=== PATIENT | male | born 1945 | race Caucasian/White ===

== ENCOUNTER 2019-06-09 17:30 | Emergency (ER) | payer MEDICARE, OTHER ==
--- NOTE | 2019-06-09 17:42 | ERPHSYRPT ---
- History of Present Illness Time Seen by Provider: 06/09/19 17:37 Source: patient Exam Limitations: no limitations Physician History: at work the radiator fluid fell on his left hand and left distal forearm and also right face while he was trying to remove the radiator. Has a burn on the left palm left forearm distal area on the volar side and also right side of the face. Timing/Duration: today Quality: burning, painful Severity: moderate Location: other ( burn on the left palm left forearm distal area on the volar side and also right side of the face.) Possible Causes: other (radiator liquid) Associated Symptoms: blisters, change in skin texture, No difficulty breathing, No edema, No fever, No flushing, No headache, No hives, No jaundice, No malaise , No nasal congestion, No numbness, No pallor, No paresthesia, No petechiae, No rash, No sore throat, No swelling/mass/lumps, No tingling Allergies/Adverse Reactions: No Known Drug Allergies Allergy (Verified 06/09/19 17:43) Home Medications: Lisinopril [Zestril] 20 mg PO DAILY 12/11/15 [History] Atorvastatin Calcium [Lipitor] 80 mg DAILY 06/09/19 [History] Ezetimibe 10 mg DAILY 06/09/19 [History] Metformin HCl 500 mg [Glucophage 500 MG] 500 mg BID 06/09/19 [History] Hx Tetanus, Diphtheria Vaccination/Date Given: Yes Hx Influenza Vaccination/Date Given: Yes (2012) Hx Pneumococcal Vaccination/Date Given: No - Review of Systems Constitutional: No Fever, No Chills Eyes: No Symptoms Ears, Nose, & Throat: No Symptoms Respiratory: No Cough, No Dyspnea Cardiac: No Chest Pain, No Edema, No Syncope Abdominal/Gastrointestinal: No Abdominal Pain, No Nausea, No Vomiting, No Diarrhea Genitourinary Symptoms: No Dysuria Musculoskeletal: No Back Pain, No Neck Pain Skin: Other (1st degree burn on the left palm left forearm distal area on the volar side and also right side of the face.), No Rash Neurological: No Dizziness, No Focal Weakness, No Sensory Changes Psychological: No Symptoms Endocrine: No Symptoms All Other Systems: Reviewed and Negative - Past Medical History Pertinent Past Medical History: Yes Neurological History: No Pertinent History ENT History: No Pertinent History Cardiac History: Hypertension Respiratory History: Asthma Endocrine Medical History: No Pertinent History Musculoskeletal History: Osteoarthritis GI Medical History: No Pertinent History History: No Pertinent History Psycho-Social History: No Pertinent History Male Reproductive Disorders: No Pertinent History Other Medical History: L TKA replaced 2013. Notes pain in the L hip since then. [place] DMII - Past Surgical History Past Surgical History: Yes Neuro Surgical History: No Pertinent History Cardiac: No Pertinent History Respiratory: No Pertinent History Gastrointestinal: No Pertinent History Genitourinary: No Pertinent History Musculoskeletal: Amputation, Orthopedic Surgery Other Surgical History: TOTAL CLEFT PALATE REPAIR. , finger amputation,left knee joint replacement - Social History Smoking Status: Never smoker Exposure to second hand smoke: No Drug Use: none Patient Lives Alone: Yes - Nursing Vital Signs Nursing Vital Signs: Initial Vital Signs Temperature 97 F 06/09/19 17:36 Pulse Rate 107 H 06/09/19 17:36 Respiratory Rate 18 06/09/19 17:36 Blood Pressure 171/101 06/09/19 17:36 O2 Sat by Pulse Oximetry 96 06/09/19 17:36 Pain Scale Pain Intensity 4 - Physical Exam General Appearance: no apparent distress, alert Eye Exam: PERRL/EOMI, eyes nml inspection Ears, Nose, Throat Exam: normal ENT inspection, pharynx normal, moist mucous membranes Neck Exam: normal inspection, non-tender, supple, full range of motion Respiratory Exam: normal breath sounds, lungs clear, No respiratory distress Cardiovascular Exam: regular rate/rhythm, normal heart sounds Gastrointestinal/Abdomen Exam: soft, mass, No tenderness Back Exam: normal inspection, normal range of motion, No CVA tenderness, No vertebral tenderness Extremity Exam: normal inspection, normal range of motion, other ( burn on the left palm left forearm distal area on the volar side and also right side of the face. no signs of compartment syndrome in the hand.) Neurologic Exam: alert, oriented x 3, cooperative, normal mood/affect, sensation nml, No motor deficits Skin Exam: normal color, warm, dry SpO2 Interpretation: normal O2 Delivery: Room Air - Course Nursing assessment & vital signs reviewed: Yes Ordered Tests: Active Orders 24 hr Category Date Time Status Dressing Care ROUTINE Care 06/09/19 18:19 Active IV Insertion STAT Care 06/09/19 17:52 Active CBC W DIFF Stat Lab 06/09/19 18:12 Completed CK-Creatinine Phosphokinase Stat Lab 06/09/19 18:12 Completed CMP Stat Lab 06/09/19 18:12 Completed PROTIME WITH INR Stat Lab 06/09/19 18:12 Completed PTT Stat Lab 06/09/19 18:12 Completed Medication Summary Generic Name Dose Route Start Last Admin Trade Name Nash PRN Reason Stop Dose Admin Sodium Chloride 1,000 mls @ 999 mls/hr 06/09/19 17:52 06/09/19 18:07 Sodium Chloride 0.9% 1000 Ml IV 06/09/19 18:52 999 mls/hr .Q1H1M STA Administration Discontinued Medications Generic Name Dose Route Start Last Admin Trade Name Freq PRN Reason Stop Dose Admin Sodium Chloride Confirm 06/09/19 17:59 Sodium Chloride 0.9% 1000 Ml Administered 06/09/19 18:00 Dose 1,000 mls @ ud .ROUTE .STK-MED ONE Morphine Sulfate 4 mg 06/09/19 17:52 06/09/19 18:06 Morphine Sulfate 4 Mg Inj IV 06/09/19 17:53 4 mg STAT ONE Administration Morphine Sulfate Confirm 06/09/19 17:59 Morphine Sulfate 4 Mg Inj Administered 06/09/19 18:00 Dose 4 mg .ROUTE .STK-MED ONE Ondansetron HCl 4 mg 06/09/19 17:52 06/09/19 18:06 Zofran 4 Mg/2 Ml Vial IV 06/09/19 17:53 4 mg STAT ONE Administration Ondansetron HCl Confirm 06/09/19 17:58 Zofran 4 Mg/2 Ml Vial Administered 06/09/19 17:59 Dose 4 mg .ROUTE .STK-MED ONE Silver Sulfadiazine 50 gm 06/09/19 17:56 06/09/19 18:36 Silvadene 50 Gm TP 06/09/19 17:57 50 gm STAT ONE Administration Silver Sulfadiazine Confirm 06/09/19 18:25 Silvadene 50 Gm Administered 06/09/19 18:26 Dose 50 gm TP .STK-MED ONE Lab/Rad Data: Laboratory Result Diagrams 06/09/19 18:12 06/09/19 18:12 Laboratory Results 06/09/19 06/09/19 06/09/19 Range/Units 18:12 18:12 18:12 WBC 8.4 (4.0-10.5) K/mm3 RBC 4.18 (4.1-5.6) M/mm3 Hgb 12.6 (12.5-18.0) gm/dl Hct 37.9 L (42-50) % MCV 90.7 (78-100) fl MCH 30.1 (26-32) pg MCHC 33.2 (32-36) g/dl RDW 13.0 (11.5-14.0) % Plt Count 174 (150-450) K/mm3 MPV 9.9 H (6-9.5) fl Gran % 52.5 (36.0-66.0) % Eos # (Auto) 0.27 (0-0.5) Absolute Lymphs (auto) 3.06 (1.0-4.6) Absolute Monos (auto) 0.64 (0.0-1.3) Lymphocytes % 36.5 (24.0-44.0) % Monocytes % 7.6 (0.0-12.0) % Eosinophils % 3.2 (0.00-5.0) % Basophils % 0.2 (0.0-0.4) % Absolute Granulocytes 4.39 (1.4-6.9) Basophils # 0.02 (0-0.4) PT 11.9 (8.83-12.87) SECONDS INR 1.05 (0.8-3.0) APTT 29.4 (24.1-36.1) SECONDS Sodium 142 (137-145) mmol/L Potassium 4.3 (3.5-5.1) mmol/L Chloride 107 (98-107) mmol/L Carbon Dioxide 24 (22-30) mmol/L Anion Gap 15.4 H (5-15) MEQ/L BUN 28 H (9-20) mg/dL Creatinine 1.25 (0.66-1.25) mg/dL Estimated GFR > 60.0 ML/MIN Glucose 146 H (74-106) mg/dL Calcium 9.6 (8.4-10.2) mg/dL Total Bilirubin 0.60 (0.2-1.3) mg/dL AST 31 (17-59) U/L ALT 24 (0-50) U/L Alkaline Phosphatase 92 (38-126) U/L Creatine Kinase 196 H (55-170) U/L Serum Total Protein 7.5 (6.3-8.2) g/dL Albumin 4.1 (3.5-5.0) g/dL - Progress Progress: improved Progress Note: 06/09/19 17:51 we called [facility] burn center in [place] 06/09/19 17:56 waiting for call back from the burn center. 06/09/19 18:[address] Reyes at [facility] burn [facility]. he told me to apply Silvadene cream and control the pain and that C. the burn specialist tomorrow morning at 8 at [facility]. I explained this to patient. Patient understood and agreed. No life or limb threatening condition at this point. The burn surface area is less than 1% and the most of it is first degree burn there is only one place on the left palm which looks like beginning to blister. 06/09/19 18:16 the burn Center was called for the appointment for the patient. The nurse left a message for them to call patient. 06/09/19 18:44 patient feels better. He is scheduled to go to see the bone specialist tomorrow morning. No life for threatening condition at discharge. Counseled pt/family regarding: diagnosis, need for follow-up - Departure Departure Disposition: Home Clinical Impression: Burn Condition: Stable Critical Care Time: No Referrals: LENA DUGGAN MD [Primary Care Provider] - Instructions: Chemical Exposure to the Skin (DC), Skin [place] Additional Instructions: see the bone specialist tomorrow morning as explained and scheduled. Prescriptions: Hydrocodone/APAP 5-325 Tab^^^ [[place] 5-325 Tablet^^^] 1 each PO TID PRN 2 Days # 6 tablet MDD 6 PRN Reason: Pain
[2019-06-09] MEDS ORDERED: MORPHINE SULFATE 4 MG INJ IV ONE (17:52)
[2019-06-09] MEDS ORDERED: Zofran 4 MG/2 ML VIAL IV ONE (17:52)
[2019-06-09] MEDS ORDERED: Sodium Chloride 0.9% 1000 ML 1,000 ML IV STA (17:52)
[2019-06-09] MEDS ORDERED: SILVADENE 50 GM TP ONE ×2 (17:56→18:25)
[2019-06-09] MEDS ORDERED: Zofran 4 MG/2 ML VIAL ONE (17:58)
[2019-06-09] MEDS ORDERED: Sodium Chloride 0.9% 1000 ML 1,000 ML ONE (17:59)
[2019-06-09] MEDS ORDERED: MORPHINE SULFATE 4 MG INJ ONE (17:59)
[2019-06-09 18:22] LABS: INR 1.05 (0.8-3.0); PROTIME 11.9 SECONDS (8.83-12.87)
[2019-06-09 18:24] LABS: BASOPHIL % 0.2 % (0.0-0.4); Basophil (Absolute #) 0.02 (0-0.4); Eosinophil % 3.2 % (0.00-5.0); Eosinophil (Absolute #) 0.27 (0-0.5); Granulocyte Absolute (ANC) 4.39 (1.4-6.9); Granulocytes % 52.5 % (36.0-66.0); Hematocrit 37.9 % (42-50); Hemoglobin 12.6 gm/dl (12.5-18.0); Lymphocyte (Absolute #) 3.06 (1.0-4.6); Lymphocytes % 36.5 % (24.0-44.0); Mean Cell Volume 90.7 fl (78-100); Mean Corpuscular Hemoglobin 30.1 pg (26-32); Mean Corpuscular Hgb Concent. 33.2 g/dl (32-36); Mean Platelet Volume 9.9 fl (6-9.5); Monocyte (Absolute #) 0.64 (0.0-1.3); Monocytes % 7.6 % (0.0-12.0); PTT 29.4 SECONDS (24.1-36.1); Platelet Count 174 K/mm3 (150-450); Red Blood Count 4.18 M/mm3 (4.1-5.6); White Blood Count 8.4 K/mm3 (4.0-10.5)
[2019-06-09 18:36] LABS: ALBUMIN 4.1 g/dL (3.5-5.0); ALKALINE PHOSPHATASE 92 U/L (38-126); ANION GAP 15.4 MEQ/L (5-15); BLOOD UREA NITROGEN 28 mg/dL (9-20); CHLORIDE 107 mmol/L (98-107); CK-Creatinine Phosphokinase 196 U/L (55-170); Calcium 9.6 mg/dL (8.4-10.2); Carbon Dioxide 24 mmol/L (22-30); Creatinine 1 1.25 mg/dL (0.66-1.25); Glucose 146 mg/dL (74-106); Potassium 4.3 mmol/L (3.5-5.1); SGOT/AST 31 U/L (17-59); SGPT/ALT 24 U/L (0-50); SODIUM 142 mmol/L (137-145); Total Protein 7.5 g/dL (6.3-8.2)
[2019-06-09 19:10] VITALS: BP 114/71; PULSE 90; O2SAT 93
== END 2019-06-09 19:20 | disposition home or self-care (01) ==
LOC: ED 17:30
DX: T20.10XA Burn of first degree of head, face, and neck, unspecified site, initial encounter (principal); T22.111A Burn of first degree of right forearm, initial encounter; T23.252A Burn of second degree of left palm, initial encounter; T31.0 Burns involving less than 10% of body surface; X16.XXXA Contact with hot heating appliances, radiators and pipes, initial encounter; Y93.89 Activity, other specified; Y99.8 Other external cause status
CPT/HCPCS: 36415; 80053; 82550; 85025; 85610; 85730; 96360; 96374; 96375; 99284; J2270; J2405; A9270-GY

== ENCOUNTER 2024-03-02 11:09 | Day surgery (SDC) | payer MEDICARE ==
[~2024-03-02 11:09] MED LIST: KEFZOL 1 GM** 3 G in Sodium Chloride 0.9% 50 ML 50 ML IV ONE
[2024-03-02] MEDS: Lactated Ringers 1,000 ML IV SCH (12:10)
[2024-03-02] MEDS: KEFZOL 1 GM** 3 G in Sodium Chloride 0.9% 50 ML 50 ML IV SCH (12:16)
[2024-03-02 12:30] VITALS: RESP 18; TEMP 97.6
[2024-03-02] MEDS ORDERED: Marcaine Mpf 0.5% Vial 30 Ml ONE (14:15)
[2024-03-02] MEDS ORDERED: Xylocaine 1% Vial 30 ML PF IJ ONE (14:16)
[2024-03-02 15:03] VITALS: BP 159/66; PULSE 91; O2SAT 97
--- NOTE | 2024-03-02 15:16 | XRAY ---
Indication: Right floating metatarsal osteotomy. Intraoperative fluoroscopy provided for 14 seconds. 2 digital spot images submitted for interpretation demonstrates lateral metallic localizer tip projecting adjacent to distal 5th metatarsal. Correlate with intraoperative findings/report.
--- NOTE | 2024-03-02 17:01 | XRAY ---
14 seconds of fluoroscopy was used in surgery for a right floating metatarsal osteotomy.
--- NOTE | 2024-03-04 09:41 | OP ---
SURGERY DATE/TIME: 03/02/2024 5730 - 0429 PREOPERATIVE DIAGNOSES: 1) Metatarsal deformity, right foot fifth metatarsal. 2) Pain, right foot. 3) Diabetes mellitus. 4) Preulcerative lesion. 5) Difficulty with ambulation. POSTOPERATIVE DIAGNOSES: 1) Metatarsal deformity, right foot fifth metatarsal. 2) Pain, right foot. 3) Diabetes mellitus. 4) Preulcerative lesion. 5) Difficulty with ambulation. PROCEDURE: Floating metatarsal osteotomy, right fifth metatarsal. SURGEON: Elliott Townsend DPM CROZE CUTTER: None. ANESTHESIA: Local consisting of 20 mL of a 1:1 mixture of 1% lidocaine plain and 0.5% bupivacaine plain injected in a mini-Mittal block-type fashion. HEMOSTASIS: Pressure dressing. QUANTITATIVE BLOOD LOSS: Minimal. MATERIALS: 3-0 nylon. INDICATIONS: Patient is a very pleasant 78-year-old male, very well known to my service for pain underneath the fifth metatarsal of the right foot. Patient has been coming to me for concerns of overload to the fifth metatarsal for a number of years at this point without any oil heaterman significant success. Patient has had pain associated with this and as a result, this has affected the way he has walked and been able to ambulate comfortably. At this time, patient also does have a preulcerative lesion and we would like to get out ahead of it before it becomes ulcerative secondary to his diabetes and peripheral neuropathy. As a result, patient understands all risks, complications, and benefits of surgical intervention at this time, including but not limited to infection, hematoma, seroma, possibility of delayed wound healing, non-wound healing, and possible need for further surgical intervention at a later date. No guarantees were provided as to the outcome of surgical intervention at this time. At this time, we decided to proceed. DESCRIPTION OF PROCEDURE AND FINDINGS: Patient was brought in the operating room and placed on the operating room table in the supine position. At this time, the right lower extremity was prepped and draped in typical sterile fashion and lowered onto the surgical field. At this time, a mini-Mittal block was performed utilizing a combination of a 1:1 mixture of 1% lidocaine plain and 0.5% bupivacaine plain to the right foot. Following a sufficient amount of time, a small stab incision was made under fluoroscopic guidance directly over the surgical neck of the fifth metatarsal. Following this, an 18 mm sagittal saw was utilized to resect as perpendicular to the weightbearing access as possible. From that standpoint, once resected, a [place] was utilized to ensure that the fragment was loose. Live fluoroscopic imaging was taken, demonstrating ability for the fifth metatarsal head to slide. The site was cleansed with copious amounts of sterile saline and a simple horizontal-mattress type fashion suture was introduced to coapt the skin edges. Following this, a dressing consisting of Betadine, Adaptic, 4 x 4, Kerlix, and Robin was applied to the right lower extremity. Patient was returned to the preop area with vital signs stable and vascular status intact. Patient handled the anesthesia as well as the procedure without significant complication. Postoperative orders as indicated in the patient's discharge chart.
== END 2024-03-02 15:16 | disposition home or self-care (01) ==
LOC: SDC 11:09
PROVIDERS: ATTEND Podiatrist Foot & Ankle Surgery
DX: M20.5X1 Other deformities of toe(s) (acquired), right foot (principal); M79.671 Pain in right foot; E11.9 Type 2 diabetes mellitus without complications; L98.8 Other specified disorders of the skin and subcutaneous tissue; R26.2 Difficulty in walking, not elsewhere classified
CPT/HCPCS: 28308; 73630; 76000; 82947; J0690

== ENCOUNTER 2024-07-21 06:56 | Inpatient (IN) | payer MEDICARE ==
--- NOTE | 2024-07-21 07:19 | ERPHSYRPT ---
- History of Present Illness Time Seen by Provider: 07/21/24 07:10 Source: patient Exam Limitations: no limitations Patient Subjective Stated Complaint: Chest pain/weakness Triage Nursing Assessment: Patient brought into ED per EMS and transferred to bed with assist of 3. Patient A+O X 3. Patient's skin pink, warm and dry. Patient complains of intermittent chest tightness, but denies pain now. Patient complains of increased SOB and weakness for the past week and a half. Patient denies N/V, but states he has been having diarrhea. Abdomen soft and round with BS X 4. Physician History: 78yo m presents via EMS for 10d of feeling fatigued, body aches, sob. Pt reports "he feels like he has been hit by a truck." Pt reports he developed some chest tightness earlier this AM which is why he called an ambulance. Pt currently denies any cp, radiation of pain into shoulder, back or jaw. Pt reports the last time he felt this poorly was when he had covid. Pt denies any nausea or vomiting, does endorse some mild diarrhea that started several days ago. Timing/Duration: day(s) (10) Cough Quality/Degree: mild Possible Cause: occasional episodes Modifying Factors: Improves With: activity Associated Symptoms: chest pain/soreness, cough, muscle aches, nasal congestion, shortness of breath, No fever, No chills, No dizziness, No headache, No wheezing Allergies/Adverse Reactions: No Known Drug Allergies Allergy (Verified 07/21/24 07:00) Home Medications: lisinopriL [Zestril] 40 mg PO DAILY 12/11/15 [History] Atorvastatin Calcium [Lipitor] 80 mg DAILY 06/09/19 [History] Ezetimibe 10 mg PO DAILY 06/09/19 [History] Metformin HCl 500 mg [Glucophage 500 MG] 500 mg DAILY 06/09/19 [History] Carbidopa/Levodopa [Carbidopa-Levodopa 25-100 Tab] 1 each PO DAILY 01/15/24 [History] Metoprolol Tartrate 25 mg [Lopressor 25MG Tab] 25 mg PO BID 01/15/24 [History] Hx Tetanus, Diphtheria Vaccination/Date Given: Yes Hx Influenza Vaccination/Date Given: No Hx Pneumococcal Vaccination/Date Given: Yes Immunizations Up to Date: Yes Travel Risk - International Travel Have you traveled outside of the country in past 3 weeks: No - Emerging Infectious Disease Are you exhibiting symptoms associated with any current EIDs: Yes - Review of Systems Constitutional: Fatigue, Malaise Ears, Nose, & Throat: Nose Congestion, Sinus Drainage, No Stridor Respiratory: Cough, Dyspnea, Dyspnea on Exertion (THOMPSON), No Stridor, No Wheezing Cardiac: Chest Pain, No Edema, No Palpitations, No Syncope Abdominal/Gastrointestinal: Diarrhea, No Abdominal Pain, No Nausea, No Vomiting Genitourinary Symptoms: No Symptoms Musculoskeletal: Myalgias - Past Medical History Pertinent Past Medical History: Yes Neurological History: Other ENT History: No Pertinent History Cardiac History: High Cholesterol, Hypertension Respiratory History: No Pertinent History Endocrine Medical History: Diabetes Type II Musculoskeletal History: Osteoarthritis, Other GI Medical History: No Pertinent History History: No Pertinent History Psycho-Social History: No Pertinent History Male Reproductive Disorders: No Pertinent History Other Medical History: SX HX; LEFT KNEE REPLACEMENT YEARS AGO, 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 , finger amputation,left knee joint replacement - Social History Smoking Status: Never smoker Exposure to second hand smoke: No Drug Use: none Patient Lives Alone: Yes - Social Determinants of Health Will the patient participate in the screening: Yes Do you worry about a steady place to live?: No Do you have any problems with any of the following?: No known problems In the past 12 months,have you had to go without utilities?: No Transportation Issues: No Has anyone in your support network made you feel unsafe?: No Have you or anyone in your house had to go without enough: No - Nursing Vital Signs Nursing Vital Signs: Initial Vital Signs Temperature 99.1 F 07/21/24 07:01 Pulse Rate 78 07/21/24 07:01 Respiratory Rate 20 07/21/24 07:01 Blood Pressure 135/72 07/21/24 07:01 O2 Sat by Pulse Oximetry 97 07/21/24 07:01 Pain Scale Pain Intensity 4 - Physical Exam General Appearance: no apparent distress, alert Ears, Nose, Throat Exam: normal ENT inspection Respiratory Exam: normal breath sounds, lungs clear, airway intact, No chest tenderness, No respiratory distress, No crackles/rales, No rhonchi, No wheezing Cardiovascular Exam: regular rate/rhythm, normal heart sounds, normal peripheral pulses Skin Exam: other (1.5cm diameter necrotic pressure ulcer right upper gluteal cleft, minimal purulent drainage, roughly 0.5cm in depth) SpO2: 97 O2 Delivery: Room Air - Course EKG Interpreted by Me: RATE (78), Sinus Rhythm, Other (not suggestive of acute ischemia, qtcb 414, artifact at baseline 2/2 parkinsonian tremor) Ordered Tests: Active Orders 24 hr Category Date Time Status EKG-ER Only STAT Care 07/21/24 07:14 Active CHEST 1 VIEW (PORTABLE) Stat Exams 07/21/24 07:14 Completed BLOOD CULTURE Stat Lab 07/21/24 07:44 Received CBC W DIFF Stat Lab 07/21/24 07:31 Completed CMP Stat Lab 07/21/24 07:31 Completed Lactic Acid Stat Lab 07/21/24 07:14 Ordered NT PRO BNPII Stat Lab 07/21/24 07:31 Completed PROCALCITONIN Stat Lab 07/21/24 07:31 Completed TROPONIN Q4H Lab 07/21/24 07:31 Completed TROPONIN Q4H Lab 07/21/24 11:15 Ordered TROPONIN Q4H Lab 07/21/24 15:15 Ordered UA W/RFX UR CULTURE Stat Lab 07/21/24 07:20 Completed Respiratory Therapy Assessment DAILY RT 07/21/24 07:29 Active Medication Summary Generic Name Dose Route Start Last Admin Trade Name Freq PRN Reason Stop Dose Admin Sodium Chloride 1,000 mls @ 999 mls/hr 07/21/24 08:25 07/21/24 08:53 Sodium Chloride 0.9% 1000 Ml IV 07/21/24 09:25 999 mls/hr .Q1H1M STA Administration Doxycycline Hyclate 100 mg/ 100 mls @ 100 mls/hr 07/21/24 10:00 Dextrose IV 08/20/24 09:59 Q12HT CONI Discontinued Medications Generic Name Dose Route Start Last Admin Trade Name Freq PRN Reason Stop Dose Admin Acetaminophen 975 mg 07/21/24 07:20 07/21/24 07:22 Acetaminophen 325 Mg Tablet PO 07/21/24 07:21 975 mg STAT ONE Administration Acetaminophen Confirm 07/21/24 07:21 Acetaminophen 325 Mg Tablet Administered 07/21/24 07:22 Dose 975 mg .ROUTE .STK-MED ONE Albuterol/Ipratropium 3 ml 07/21/24 07:17 07/21/24 07:26 Ipratropium/Albuterol Sulfate 3 Ml Ampul.Neb IH 07/21/24 07:18 3 ml STAT ONE Administration Albuterol/Ipratropium Confirm 07/21/24 07:26 Ipratropium/Albuterol Sulfate 3 Ml Ampul.Neb Administered 07/21/24 07:27 Dose 3 ml IH .STK-MED ONE Sodium Chloride Confirm 07/21/24 08:52 Sodium Chloride 0.9% 1000 Ml Administered 07/21/24 08:53 Dose 1,000 mls @ ud .ROUTE .STK-MED ONE Lab/Rad Data: Laboratory Result Diagrams 07/21/24 07:31 07/21/24 07:31 Laboratory Results 07/21/24 07/21/24 07/21/24 Range/Units 07:31 07:31 07:31 WBC 12.7 H (4.23-9.07) x10^3/uL RBC 3.84 L (4.63-6.08) x10^6/uL Hgb 11.0 L (13.7-17.5) g/dL Hct 33.5 L (40.1-51.0) % MCV 87.2 (79.0-92.2) fL MCH 28.6 (25.7-32.2) pg MCHC 32.8 (32.3-36.5) g/dL RDW 13.2 (11.6-14.4) % Plt Count 199 (163-337) x10^3/uL MPV 8.8 L (9.4-12.4) fL Gran % 75.1 H (34.0-67.9) % Immature Gran % (Auto) 0.9 H (0.001-0.429) % Nucleat RBC Rel Count 0.0 (0.00-0.2) % Eos # (Auto) 0.14 (0.04-0.54) x10^3/uL Immature Gran # (Auto) 0.11 H (0.001-0.031) x10^3u/L Absolute Lymphs (auto) 1.61 (1.32-3.57) x10^3/uL Absolute Monos (auto) 1.25 H (0.30-0.82) x10^3/uL Absolute Nucleated RBC 0.00 (0.00-0.012) x10^3u/L Lymphocytes % 12.7 L (21.8-53.1) % Monocytes % 9.9 (5.3-12.2) % Eosinophils % 1.1 (0.8-7.0) % Basophils % 0.3 (0.2-1.2) % Absolute Granulocytes 9.53 H (1.78-5.38) x10^3/uL Basophils # 0.04 (0.01-0.08) x10^3/uL Sodium 136 (135-145) mmol/L Potassium 4.2 (3.5-5.1) mmol/L Chloride 101 (98-107) mmol/L Carbon Dioxide 23 (22-30) mmol/L Anion Gap 16.5 H (5-15) MEQ/L BUN 12 (9-20) mg/dL Creatinine 0.88 (0.66-1.25) mg/dL Estimated GFR 89.1 ML/MIN Glucose 160 H (74-106) mg/dL Calcium 8.7 (8.4-10.2) mg/dL Total Bilirubin 1.40 H (0.2-1.3) mg/dL AST 31 (17-59) U/L ALT 11 (0-50) U/L Alkaline Phosphatase 141 H (38-126) U/L Troponin I < 0.012 (0.000-0.033) ng/mL NT-Pro-B Natriuret Pep 522 (<300) pg/mL Serum Total Protein 6.0 L (6.3-8.2) g/dL Albumin 3.1 L (3.5-5.0) g/dL Procalcitonin 0.102 H (0.030-0.080) ng/mL Urine Color (Yellow) Urine Appearance (Clear) Urine pH (4.6-8.0) Ur Specific Peck (1.005-1.030) Urine Protein (Negative) Urine Glucose (UA) (Negative) mg/dL Urine Ketones (Negative) Urine Blood (Negative) Urine Nitrite (Negative) Urine Bilirubin (Negative) Urine Urobilinogen (0.2) mg/dL Ur Leukocyte Esterase (Negative) U Hyaline Cast (Auto) (0-2) /LPF Urine Microscopic RBC (0-5) /HPF Urine Microscopic WBC (0-5) /HPF Ur Epithelial Cells (None Seen) /HPF Urine Bacteria (None Seen) /HPF Urine Culture Reflexed (NO) Influenza Type A Ag (NEGATIVE) Influenza Type B Ag (NEGATIVE) RSV (PCR) (NEGATIVE) SARS-CoV-2 (PCR) (NEGATIVE) 07/21/24 07/21/24 Range/Units 07:30 07:20 WBC (4.23-9.07) x10^3/uL RBC (4.63-6.08) x10^6/uL Hgb (13.7-17.5) g/dL Hct (40.1-51.0) % MCV (79.0-92.2) fL MCH (25.7-32.2) pg MCHC (32.3-36.5) g/dL RDW (11.6-14.4) % Plt Count (163-337) x10^3/uL MPV (9.4-12.4) fL Gran % (34.0-67.9) % Immature Gran % (Auto) (0.001-0.429) % Nucleat RBC Rel Count (0.00-0.2) % Eos # (Auto) (0.04-0.54) x10^3/uL Immature Gran # (Auto) (0.001-0.031) x10^3u/L Absolute Lymphs (auto) (1.32-3.57) x10^3/uL Absolute Monos (auto) (0.30-0.82) x10^3/uL Absolute Nucleated RBC (0.00-0.012) x10^3u/L Lymphocytes % (21.8-53.1) % Monocytes % (5.3-12.2) % Eosinophils % (0.8-7.0) % Basophils % (0.2-1.2) % Absolute Granulocytes (1.78-5.38) x10^3/uL Basophils # (0.01-0.08) x10^3/uL Sodium (135-145) mmol/L Potassium (3.5-5.1) mmol/L Chloride (98-107) mmol/L Carbon Dioxide (22-30) mmol/L Anion Gap (5-15) MEQ/L BUN (9-20) mg/dL Creatinine (0.66-1.25) mg/dL Estimated GFR ML/MIN Glucose (74-106) mg/dL Calcium (8.4-10.2) mg/dL Total Bilirubin (0.2-1.3) mg/dL AST (17-59) U/L ALT (0-50) U/L Alkaline Phosphatase (38-126) U/L Troponin I (0.000-0.033) ng/mL NT-Pro-B Natriuret Pep (<300) pg/mL Serum Total Protein (6.3-8.2) g/dL Albumin (3.5-5.0) g/dL Procalcitonin (0.030-0.080) ng/mL Urine Color Yellow (Yellow) Urine Appearance Clear (Clear) Urine pH 6.5 (4.6-8.0) Ur Specific Peck 1.010 (1.005-1.030) Urine Protein Negative (Negative) Urine Glucose (UA) Negative (Negative) mg/dL Urine Ketones Negative (Negative) Urine Blood Moderate A (Negative) Urine Nitrite Negative (Negative) Urine Bilirubin Negative (Negative) Urine Urobilinogen 2.0 A (0.2) mg/dL Ur Leukocyte Esterase Negative (Negative) U Hyaline Cast (Auto) NONE SEEN (0-2) /LPF Urine Microscopic RBC 51-100 A (0-5) /HPF Urine Microscopic WBC 3-5 (0-5) /HPF Ur Epithelial Cells None Seen (None Seen) /HPF Urine Bacteria None Seen (None Seen) /HPF Urine Culture Reflexed NO (NO) Influenza Type A Ag NEGATIVE (NEGATIVE) Influenza Type B Ag NEGATIVE (NEGATIVE) RSV (PCR) NEGATIVE (NEGATIVE) SARS-CoV-2 (PCR) NEGATIVE (NEGATIVE) - Progress Progress: re-examined Air Movement: fair Progress Note: 07/21/24 08:28 cxr concerning for pneumonia RLL, pt also has unstageable pressure ulcer on right gluteal cleft will start doxycycline for coverage for pna and mrsa skin bacteria wbc >12k trops negative urine suggestive of hematuria but no UTI plan for admission to [facility] for obs 07/21/24 08:59 i discussed pt case w/ Dr Wise who is willing to accept for obs Blood Culture(s) Obtained: Yes Antibiotics given: Yes Will see patient in: hospital (observation) Counseled pt/family regarding: lab results, diagnosis, need for follow-up, rad results Medical Desision Making - Diagnostic Testing Diagnostic test were ordered, analyzed, and reviewed by me: Yes Radiological Interpretation: Reviewed by me, Teleradiologist Report - Risk of complications The pt has a high risk of morbidity or mortality based on: Decision regarding hospitilization or escalation of hosp level of care - Departure Departure Disposition: Observation Clinical Impression: Pressure ulcer of buttock, unstageable Qualifiers: Laterality: right Qualified Code(s): L89.310 - Pressure ulcer of right buttock, unstageable Pneumonia Qualifiers: Pneumonia type: due to unspecified organism Laterality: right Lung location: lower lobe of lung Qualified Code(s): J18.9 - Pneumonia, unspecified organism Condition: Stable Critical Care Time: No Referrals: LENA DUGGAN MD [Primary Care Provider] - Follow up/PCP as directed
[2024-07-21] MEDS ORDERED: TYLENOL 325 MG ONE (07:21)
[2024-07-21] MEDS: TYLENOL 325 MG PO ONE (07:22)
[2024-07-21] MEDS ORDERED: DUONEB 0.5-3 MG/3 ml Neb IH ONE (07:26)
[2024-07-21] MEDS: DUONEB 0.5-3 MG/3 ml Neb IH ONE (07:26)
[2024-07-21 07:31] LABS: Absolute Neutrophil Ct (ANC) 9.53 x10^3/uL (1.78-5.38); BASOPHIL % 0.3 % (0.2-1.2); Basophil (Absolute #) 0.04 x10^3/uL (0.01-0.08); Eosinophil % 1.1 % (0.8-7.0); Eosinophil (Absolute #) 0.14 x10^3/uL (0.04-0.54); Hematocrit 33.5 % (40.1-51.0); IMMATURE GRAN # 0.11 x10^3u/L (0.001-0.031); IMMATURE GRAN % 0.9 % (0.001-0.429); Lymphocyte (Absolute #) 1.61 x10^3/uL (1.32-3.57); Lymphocytes % 12.7 % (21.8-53.1); Mean Cell Volume 87.2 fL (79.0-92.2); Mean Corpuscular Hemoglobin 28.6 pg (25.7-32.2); Mean Corpuscular Hgb Concent. 32.8 g/dL (32.3-36.5); Mean Platelet Volume 8.8 fL (9.4-12.4); Monocyte (Absolute #) 1.25 x10^3/uL (0.30-0.82); Monocytes % 9.9 % (5.3-12.2); Neutrophil % 75.1 % (34.0-67.9); Platelet Count 199 x10^3/uL (163-337); Red Blood Count 3.84 x10^6/uL (4.63-6.08); Red Cell Distribution Width 13.2 % (11.6-14.4); White Blood Count 12.7 x10^3/uL (4.23-9.07)
[2024-07-21 07:56] LABS: Appearance Clear (Clear); Bacteria None Seen /HPF (None Seen); Bilirubin Negative (Negative); Blood Moderate (Negative); Epithelial Cells None Seen /HPF (None Seen); Glucose, Urine Negative (Negative); Hyaline Casts NONE SEEN /LPF (0-2); Ketones Negative (Negative); Leukocyte Esterase Negative (Negative); Nitrite Negative (Negative); Ph 6.5 (4.6-8.0); Protein,Urine Dip Negative (Negative); RBC 51-100 /HPF (0-5)
[2024-07-21 08:08] LABS: ALBUMIN 3.1 g/dL (3.5-5.0); ANION GAP 16.5 MEQ/L (5-15); BILIRUBIN,TOTAL 1.4 mg/dL (0.2-1.3); Calcium 8.7 mg/dL (8.4-10.2); Creatinine 1 0.88 mg/dL (0.66-1.25); EST GLOMERULAR FILTRATION RATE 89.1 ML/MIN; PROCALCITONIN 0.102 ng/mL (0.030-0.080); Potassium 4.2 mmol/L (3.5-5.1)
[2024-07-21 08:08] LABS: INFLUENZA A NEGATIVE (NEGATIVE); INFLUENZA B NEGATIVE (NEGATIVE); RESPIRATORY SYNCTIAL VIRUS NEGATIVE (NEGATIVE); SARS-CoV-2 Xpert Express NEGATIVE (NEGATIVE)
--- NOTE | 2024-07-21 08:42 | XRAY ---
Indication: Short of breath. Comparison: August 28, 2022 Portable chest demonstrates new mild right infrahilar infiltrate/atelectasis. Remaining lungs clear. Heart not enlarged for portable technique. Bony thorax intact again with osteopenia and degenerative changes.
[2024-07-21] MEDS ORDERED: Sodium Chloride 0.9% 1000 ML 1,000 ML ONE (08:52)
[2024-07-21] MEDS: Sodium Chloride 0.9% 1000 ML 1,000 ML IV STA (08:53)
[2024-07-21] MEDS ORDERED: VIBRAMYCIN 100 MG IV ONE (09:03)
[2024-07-21] MEDS ORDERED: D5w 100ML Mini Bag 100 ML 100 ML IV ONE (09:03)
[2024-07-21] MEDS: VIBRAMYCIN 100 MG*** 100 MG in Dextrose 5%/Water IV Soln. 100ML PLUS BAG 100 ML IV SCH (09:04)
[2024-07-21] MEDS ORDERED: HUMALOG SQ PRN (09:58)
[2024-07-21] MEDS ORDERED: NON-FORMULARY ITEM (Atorvastatin Calcium [Lipitor] 80 MG Tablet) PO SCH (10:00)
[2024-07-21] MEDS ORDERED: Lopressor 25MG Tab PO SCH (10:00)
--- NOTE | 2024-07-21 10:00 | PCM.HP ---
History of Present Illness - Chief Complaint Chief Complaint: pneumonia Date: 07/21/24 History of Present Illness: is a 78 year old male with pmhx of hyperlipidemia, HTN, type II DM, OA, parkinson's, and obesity. Pt presented via EMS to ER today for 10 day of feeling fatigued, body aches, and SOB. Pt reports "he feels like he has been hit by a truck." Pt reports he developed some chest tightness earlier this AM which is why he called an ambulance. Pt currently denies any cp, radiation of pain into shoulder, back or jaw. Pt reports the last time he felt this poorly was when he had COVID. Pt denies any nausea or vomiting, does endorse some mild diarrhea that started several days ago. FLU/COVID/ RSV negative. WBC 12.7, anion gap 16.5, Procal 0.102. CXR + for pneumonia, Doxycycline, duonebs, IVF started in ER. Will continue IV antibiotics and IVF. Pt had a temp of 99.1 in ER and tylenol gave. Pt has a wound or right buttock and will have PT eval for wound care. Wound culture ordered. Pics of wound taken in ER and in chart. + RLE edema, pt reports this started after a right foot surgery with Dr. Gallagher 1 1/2 months ago. He reports he has had RLE edema since. Venous duplex of RLE ordered. Legs elevated on pillow to decrease edema. Pt denies CP, abd pain, N/V/D. - Review of Systems Constitutional: No Fever, No Chills Eyes: No Symptoms Ears, Nose, & Throat: No Symptoms Respiratory: No Cough, No Short Of Breath Cardiac: No Chest Pain, No Edema, No Syncope Abdominal/Gastrointestinal: No Abdominal Pain, No Nausea, No Vomiting, No Diarrhea Genitourinary Symptoms: No Dysuria Musculoskeletal: No Back Pain, No Neck Pain Skin: No Rash Neurological: No Dizziness, No Focal Weakness, No Sensory Changes Psychological: No Symptoms Endocrine: No Symptoms Hematologic/Lymphatic: No Symptoms Immunological/Allergic: No Symptoms Medications & Allergies Home Medications: Home Medication List lisinopriL [Zestril] 40 mg PO DAILY 12/11/15 [History Confirmed 07/21/24] Atorvastatin Calcium [Lipitor] 80 mg PO DAILY 06/09/19 [History Confirmed ] Ezetimibe 10 mg PO DAILY 06/09/19 [History Confirmed 07/21/24] Metformin HCl 500 mg [Glucophage 500 MG] 500 mg PO DAILY 06/09/19 [History Confirmed 07/21/24] Carbidopa/Levodopa [Carbidopa-Levodopa 25-100 Tab] 2 each PO DAILY 01/15/24 [History Confirmed 07/21/24] Metoprolol Tartrate 25 mg [Lopressor 25MG Tab] 50 mg PO DAILY 01/15/24 [History Confirmed 07/21/24] Carbidopa/Levodopa 25/100 mg [Sinemet 25/100 MG] 1 tab PO 1200 07/21/24 [History Confirmed 07/21/24] Allergies/Adverse Reactions: Allergies Allergy/AdvReac Type Severity Reaction Status Date / Time No Known Drug Allergies Allergy Verified 07/21/24 07:00 - Past Medical History Past Medical History: Yes Neurological History: Other ENT History: No Pertinent History Cardiac History: High Cholesterol, Hypertension Respiratory History: No Pertinent History Endocrine Medical History: Diabetes Type II Musculoskelatal History: Osteoarthritis, Other GI Medical History: No Pertinent History History: No Pertinent History Pyscho-Social History: No Pertinent History Male Reproductive Disorders: No Pertinent History Comment: SX HX; LEFT KNEE REPLACEMENT YEARS AGO, 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 PARKINSON'S - Past Surgical History Past Surgical History: Yes Neuro Surgical History: No Pertinent History Cardiac History: No Pertinent History Respiratory Surgery: No Pertinent History GI Surgical History: No Pertinent History Genitourinary Surgical Hx: No Pertinent History Musculskeletal Surgical Hx: Amputation, Orthopedic Surgery Other Surgical History: TOTAL CLEFT PALATE REPAIR. , finger amputation,left knee joint replacement - Social History Smoking Status: Never smoker Exposure to second hand smoke: No Alcohol: None Drug Use: none - Social Determinants of Health Will the patient participate in the screening: Yes Do you worry about a steady place to live?: No Do you have any problems with any of the following?: No known problems In the past 12 months,have you had to go without utilities?: No Have you or anyone in your house had to go without enough: No Transportation Issues: No Has anyone in your support network made you feel unsafe?: No - Physical Exam Vital Signs: Vital Signs - 24 hr Temp Pulse Resp BP BP Pulse Ox 07/21/24 09:01 97 07/21/24 08:01 64 17 114/56 98 07/21/24 07:48 62 18 125/54 95 07/21/24 07:29 74 20 96 07/21/24 07:04 72 16 101/82 95 07/21/24 07:01 99.1 F 78 20 135/72 97 General Appearance: no apparent distress, alert Neurologic Exam: alert, oriented x 3, cooperative, normal mood/affect, nml cerebellar function, nml station & gait, sensation nml, No motor deficits Eye Exam: PERRL/EOMI, eyes nml inspection Ears, Nose, Throat Exam: normal ENT inspection, TMs normal, pharynx normal, moist mucous membranes Neck Exam: normal inspection, non-tender, supple, full range of motion Respiratory Exam: normal breath sounds, lungs clear, No respiratory distress Cardiovascular Exam: regular rate/rhythm, normal heart sounds, normal peripheral pulses Gastrointestinal/Abdomen Exam: soft, normal bowel sounds, No tenderness, No mass Back Exam: normal inspection, normal range of motion, No CVA tenderness, No vertebral tenderness Extremity Exam: normal inspection, normal range of motion, pelvis stable Skin Exam: normal color, warm, dry, No rash Lymphatic Exam: No adenopathy Results - Labs Lab/Micro Results: Lab Results-Last 24 Hours 07/21/24 07/21/24 07/21/24 Range/Units 07:20 07:30 07:31 WBC 12.7 H (4.23-9.07) x10^3/uL RBC 3.84 L (4.63-6.08) x10^6/uL Hgb 11.0 L (13.7-17.5) g/dL Hct 33.5 L (40.1-51.0) % MCV 87.2 (79.0-92.2) fL MCH 28.6 (25.7-32.2) pg MCHC 32.8 (32.3-36.5) g/dL RDW 13.2 (11.6-14.4) % Plt Count 199 (163-337) x10^3/uL MPV 8.8 L (9.4-12.4) fL Gran % 75.1 H (34.0-67.9) % Immature Gran % (Auto) 0.9 H (0.001-0.429) % Nucleat RBC Rel Count 0.0 (0.00-0.2) % Eos # (Auto) 0.14 (0.04-0.54) x10^3/uL Immature Gran # (Auto) 0.11 H (0.001-0.031) x10^3u/L Absolute Lymphs (auto) 1.61 (1.32-3.57) x10^3/uL Absolute Monos (auto) 1.25 H (0.30-0.82) x10^3/uL Absolute Nucleated RBC 0.00 (0.00-0.012) x10^3u/L Lymphocytes % 12.7 L (21.8-53.1) % Monocytes % 9.9 (5.3-12.2) % Eosinophils % 1.1 (0.8-7.0) % Basophils % 0.3 (0.2-1.2) % Absolute Granulocytes 9.53 H (1.78-5.38) x10^3/uL Basophils # 0.04 (0.01-0.08) x10^3/uL Sodium (135-145) mmol/L Potassium (3.5-5.1) mmol/L Chloride (98-107) mmol/L Carbon Dioxide (22-30) mmol/L Anion Gap (5-15) MEQ/L BUN (9-20) mg/dL Creatinine (0.66-1.25) mg/dL Estimated GFR ML/MIN Glucose (74-106) mg/dL Calcium (8.4-10.2) mg/dL Total Bilirubin (0.2-1.3) mg/dL AST (17-59) U/L ALT (0-50) U/L Alkaline Phosphatase (38-126) U/L Troponin I (0.000-0.033) ng/mL NT-Pro-B Natriuret Pep (<300) pg/mL Serum Total Protein (6.3-8.2) g/dL Albumin (3.5-5.0) g/dL Procalcitonin (0.030-0.080) ng/mL Urine Color Yellow (Yellow) Urine Appearance Clear (Clear) Urine pH 6.5 (4.6-8.0) Ur Specific [place] 1.010 (1.005-1.030) Urine Protein Negative (Negative) Urine Glucose (UA) Negative (Negative) mg/dL Urine Ketones Negative (Negative) Urine Blood Moderate A (Negative) Urine Nitrite Negative (Negative) Urine Bilirubin Negative (Negative) Urine Urobilinogen 2.0 A (0.2) mg/dL Ur Leukocyte Esterase Negative (Negative) U Hyaline Cast (Auto) NONE SEEN (0-2) /LPF Urine Microscopic RBC 51-100 A (0-5) /HPF Urine Microscopic WBC 3-5 (0-5) /HPF Ur Epithelial Cells None Seen (None Seen) /HPF Urine Bacteria None Seen (None Seen) /HPF Urine Culture Reflexed NO (NO) Influenza Type A Ag NEGATIVE (NEGATIVE) Influenza Type B Ag NEGATIVE (NEGATIVE) RSV (PCR) NEGATIVE (NEGATIVE) SARS-CoV-2 (PCR) NEGATIVE (NEGATIVE) 07/21/24 07/21/24 Range/Units 07:31 07:31 WBC (4.23-9.07) x10^3/uL RBC (4.63-6.08) x10^6/uL Hgb (13.7-17.5) g/dL Hct (40.1-51.0) % MCV (79.0-92.2) fL MCH (25.7-32.2) pg MCHC (32.3-36.5) g/dL RDW (11.6-14.4) % Plt Count (163-337) x10^3/uL MPV (9.4-12.4) fL Gran % (34.0-67.9) % Immature Gran % (Auto) (0.001-0.429) % Nucleat RBC Rel Count (0.00-0.2) % Eos # (Auto) (0.04-0.54) x10^3/uL Immature Gran # (Auto) (0.001-0.031) x10^3u/L Absolute Lymphs (auto) (1.32-3.57) x10^3/uL Absolute Monos (auto) (0.30-0.82) x10^3/uL Absolute Nucleated RBC (0.00-0.012) x10^3u/L Lymphocytes % (21.8-53.1) % Monocytes % (5.3-12.2) % Eosinophils % (0.8-7.0) % Basophils % (0.2-1.2) % Absolute Granulocytes (1.78-5.38) x10^3/uL Basophils # (0.01-0.08) x10^3/uL Sodium 136 (135-145) mmol/L Potassium 4.2 (3.5-5.1) mmol/L Chloride 101 (98-107) mmol/L Carbon Dioxide 23 (22-30) mmol/L Anion Gap 16.5 H (5-15) MEQ/L BUN 12 (9-20) mg/dL Creatinine 0.88 (0.66-1.25) mg/dL Estimated GFR 89.1 ML/MIN Glucose 160 H (74-106) mg/dL Calcium 8.7 (8.4-10.2) mg/dL Total Bilirubin 1.40 H (0.2-1.3) mg/dL AST 31 (17-59) U/L ALT 11 (0-50) U/L Alkaline Phosphatase 141 H (38-126) U/L Troponin I < 0.012 (0.000-0.033) ng/mL NT-Pro-B Natriuret Pep 522 (<300) pg/mL Serum Total Protein 6.0 L (6.3-8.2) g/dL Albumin 3.1 L (3.5-5.0) g/dL Procalcitonin 0.102 H (0.030-0.080) ng/mL Urine Color (Yellow) Urine Appearance (Clear) Urine pH (4.6-8.0) Ur Specific [place] (1.005-1.030) Urine Protein (Negative) Urine Glucose (UA) (Negative) mg/dL Urine Ketones (Negative) Urine Blood (Negative) Urine Nitrite (Negative) Urine Bilirubin (Negative) Urine Urobilinogen (0.2) mg/dL Ur Leukocyte Esterase (Negative) U Hyaline Cast (Auto) (0-2) /LPF Urine Microscopic RBC (0-5) /HPF Urine Microscopic WBC (0-5) /HPF Ur Epithelial Cells (None Seen) /HPF Urine Bacteria (None Seen) /HPF Urine Culture Reflexed (NO) Influenza Type A Ag (NEGATIVE) Influenza Type B Ag (NEGATIVE) RSV (PCR) (NEGATIVE) SARS-CoV-2 (PCR) (NEGATIVE) - Radiology Impressions Radiology Exams & Impressions: Radiology Procedures Category Date Time Status CHEST 1 VIEW (PORTABLE) Stat Exams 07/21/24 07:14 Completed Assessment/Plan (1) Pneumonia Current Visit: Yes Status: Acute Qualifiers: Pneumonia type: due to unspecified organism Laterality: right Lung location: lower lobe of lung Qualified Code(s): J18.9 - Pneumonia, unspecified organism Assessment & Plan: - CXR reviewed - CBC, CMP reviewed - procal elevated - WBC 12.7 - IV antibiotics - RA 98% - Flu/COVID/RSV negative - PT eval - tylenol for fever - BC x2 - tele Code(s): J18.9 - PNEUMONIA, UNSPECIFIED ORGANISM (2) Pressure ulcer of buttock, unstageable Current Visit: Yes Status: Acute Qualifiers: Laterality: right Qualified Code(s): L89.310 - Pressure ulcer of right buttock, unstageable Assessment & Plan: - pics in chart per nursing staff in ER - Pt for wound care - Wound culture - Santyl Topical daily per PT Code(s): L89.300 - PRESSURE ULCER OF UNSPECIFIED BUTTOCK, UNSTAGEABLE (3) Dehydration Current Visit: Yes Status: Acute Assessment & Plan: - anion gap 16.5 - IV fluids started in ER- Continue Code(s): E86.0 - DEHYDRATION (4) Edema of right lower extremity Current Visit: Yes Status: Acute Assessment & Plan: - S/P R foot surgery 1 1/2 months ago with podiatry - Dr. Gallagher - Venous duplex RLE Code(s): R60.0 - LOCALIZED EDEMA (5) Diarrhea Current Visit: Yes Status: Acute Assessment & Plan: - C-diff and stool culture pending - probiotics Code(s): R19.7 - DIARRHEA, UNSPECIFIED (6) HTN (hypertension) Current Visit: Yes Status: Chronic Assessment & Plan: - BP stable - continue home meds Code(s): I10 - ESSENTIAL (PRIMARY) HYPERTENSION (7) Type II diabetes mellitus Current Visit: Yes Status: Chronic Qualifiers: Diabetes mellitus vermin exterminator insulin use: without vermin exterminator use Assessment & Plan: - Continue metformin - accuchecks ac/hs - humalog low dose s/s - carb consistent diet - A1C 7.11- 05/24/24 (8) Hyperlipidemia Current Visit: Yes Status: Chronic Assessment & Plan: - continue home med Code(s): E78.5 - HYPERLIPIDEMIA, UNSPECIFIED (9) Obesity (BMI 30-39.9) Current Visit: Yes Status: Chronic Assessment & Plan: - advised ADA diet and exercise control Code(s): E66.9 - OBESITY, UNSPECIFIED (10) Parkinson disease Current Visit: Yes Status: Chronic Assessment & Plan: - Continue home meds VTE: Lovenox PPI: Protonix Next of KIN: Callie Talavera [phone] D/C plan: 1-2 days Code status: full Code(s): G20.A1 - PARKINSON'S DIS W/O DYSKINESIA, W/O MENTION OF FLUCTUATIONS
[2024-07-21] MEDS ORDERED: TYLENOL 325 MG PO PRN (10:08)
[2024-07-21] MEDS: DUONEB 0.5-3 MG/3 ml Neb IH SCH (11:04)
[2024-07-21] MEDS: Glucophage 500 MG PO SCH (11:19)
[2024-07-21] MEDS: Zestril 20 MG PO SCH (11:19)
[2024-07-21] MEDS: Zetia 10 MG PO SCH (11:19)
[2024-07-21] MEDS: ZOCOR 20MG PO SCH (11:20)
[2024-07-21] MEDS: Lopressor 50 MG PO SCH (11:20)
[2024-07-21] MEDS: Sodium Chloride 0.9% 1000 ML 1,000 ML IV SCH (11:39)
[2024-07-21] MEDS: ROCEPHIN 1 GM / 100 ML NaCl 1 GM/100 ML IVPB IV SCH (11:39)
[2024-07-21] MEDS: Zithromax 500 MG/ 250 ML NaCl Premix 500 MG/250 ML IVPB IV SCH (11:39)
[2024-07-21] MEDS: ENOXAPARIN SODIUM SQ SCH (11:40)
[2024-07-21] MEDS: Acidophilus TABLET PO SCH (11:40)
--- NOTE | 2024-07-21 13:51 | XRAY ---
Indication: Right leg edema 1 month following foot surgery. Two-dimensional sonogram and color Doppler imaging major venous vessels right leg performed. Comparison: None No thrombus seen in the examined deep venous vessels right leg including greater saphenous vein. Veins demonstrate normal compressibility. Venous waveforms are normal with and without augmentation. Impression: Right leg negative for DVT.
[2024-07-21] MEDS: Sinemet 25/100 MG PO SCH (14:20)
[2024-07-22 04:52] LABS: Hematocrit 29.5 % (40.1-51.0); Hemoglobin 9.9 g/dL (13.7-17.5); Mean Corpuscular Hemoglobin 28.9 pg (25.7-32.2); Mean Corpuscular Hgb Concent. 33.6 g/dL (32.3-36.5); Mean Platelet Volume 9.3 fL (9.4-12.4); Platelet Count 199 x10^3/uL (163-337); Red Blood Count 3.43 x10^6/uL (4.63-6.08); Red Cell Distribution Width 13.5 % (11.6-14.4); White Blood Count 12.7 x10^3/uL (4.23-9.07)
[2024-07-22 05:10] LABS: ALBUMIN 3.1 g/dL (3.5-5.0); ANION GAP 12.8 MEQ/L (5-15); Calcium 8.3 mg/dL (8.4-10.2); Creatinine 1 0.97 mg/dL (0.66-1.25); EST GLOMERULAR FILTRATION RATE 80.9 ML/MIN; Potassium 3.8 mmol/L (3.5-5.1); Total Protein 6.3 g/dL (6.3-8.2)
[2024-07-22] MEDS: Sinemet 25/100 MG PO SCH (06:58)
[2024-07-22] MEDS: Protonix 20MG Tablet PO SCH (10:53)
[2024-07-22] MEDS: Santyl OINTMENT TOP SCH (10:54)
[2024-07-22] MEDS: FLUZONE HIGH-DOSE TRIV 2024-25 IM ONE (11:50)
[2024-07-22] MEDS: Docusate Sodium 100 MG PO SCH (11:50)
--- NOTE | 2024-07-22 12:31 | PCM.NOTE ---
Date and Time: 07/22/24 1220 Subjective Assessment: 07/21/24 is a 78 year old male with pmhx of hyperlipidemia, HTN, type II DM, OA, parkinson's, and obesity. Pt presented via EMS to ER today for 10 day of feeling fatigued, body aches, and SOB. Pt reports "he feels like he has been hit by a truck." Pt reports he developed some chest tightness earlier this AM which is why he called an ambulance. Pt currently denies any cp, radiation of pain into shoulder, back or jaw. Pt reports the last time he felt this poorly was when he had COVID. Pt denies any nausea or vomiting, does endorse some mild diarrhea that started several days ago. FLU/COVID/ RSV negative. WBC 12.7, anion gap 16.5, Procal 0.102. CXR + for pneumonia, Doxycycline, duonebs, IVF started in ER. Will continue IV antibiotics and IVF. Pt had a temp of 99.1 in ER and tylenol gave. Pt has a wound or right buttock and will have PT eval for wound care. Wound culture ordered. Pics of wound taken in ER and in chart. + RLE edema, pt reports this started after a right foot surgery with Dr. Gallagher 1 1/2 months ago. He reports he has had RLE edema since. Venous duplex of RLE ordered. Legs elevated on pillow to decrease edema. Pt denies CP, abd pain, N/V/D. 07/22/24 Pt sitting up in the chair today. He is having increased pain, drainage, redness, and hardening of buttock around wound. Per nursing dressing over wound was changed 4- 5 times last night with significant amount of foul smelling drainage. He has excoriation of intergluteal cleft from drainage now. General surgery consulted. He had a temp this AM of 100.2. Narcotic pain medication added for increased pain. Continue IV antibiotics for pneumonia and wound. IV fluids stopped. He denies CP, abd pain, N/V/D. - Review of Systems Constitutional: No Fever, No Chills Eyes: No Symptoms Ears, Nose, & Throat: No Symptoms Respiratory: No Cough, No Short Of Breath Cardiac: No Chest Pain, No Edema, No Syncope Abdominal/Gastrointestinal: No Abdominal Pain, No Nausea, No Vomiting, No Diarrhea Genitourinary Symptoms: No Dysuria Musculoskeletal: No Back Pain, No Neck Pain Skin: Skin Lesions (Wound right buttock, redness of glutel clef, cellulitis and hardening), No Rash Neurological: No Dizziness, No Focal Weakness, No Sensory Changes Psychological: No Symptoms Endocrine: No Symptoms Hematologic/Lymphatic: No Symptoms Immunological/Allergic: No Symptoms Objective Exam General Appearance: no apparent distress, alert, obese Neurologic Exam: alert, oriented x 3, cooperative, normal mood/affect, nml cerebellar function, sensation nml, No motor deficits Skin Exam: warm, dry, other (wound of riht buttock with foul smelling drainage, redness, hardening of skin surrounding, excoration of gluteal clef) Wound Assessment: Skin/Wound Assessment Wound/Incision Assessment Start: 07/22/24 04:06 Text: Status: Active Freq: Q8H Protocol: Document 07/22/24 10:00 EK (Rec: 07/22/24 11:30 EK [id number]) Wound/Incision Assessment Right Buttock Wound Assessment Shift Assessment Wound Type Pressure Ulcer Wound Stage Unstageable Dressing Status Dry & Intact Comment DRESSING CHANGED PER Brandie CANO RT - DRESSING C/D/I Eye Exam: PERRL, EOMI, eyes nml inspection Ears, Nose, Throat Exam: normal ENT inspection, pharynx normal, moist mucous membranes Neck Exam: normal inspection, non-tender, supple, full range of motion Respiratory Exam: normal breath sounds, lungs clear, No respiratory distress Cardiovascular Exam: regular rate/rhythm, normal heart sounds Gastrointestinal/Abdomen Exam: soft, No tenderness, No mass Extremity Exam: normal inspection, normal range of motion Back Exam: normal inspection, normal range of motion, No CVA tenderness, No vertebral tenderness Male Genitalia Exam: deferred Rectal Exam: deferred Objective Data Vital Signs: Vital Signs - 24 hr Temp Pulse Resp BP Pulse Ox 07/22/24 10:55 86 16 94 L 07/22/24 07:53 100.2 F 85 19 129/84 93 L 07/22/24 05:20 87 18 93 L 07/22/24 04:00 98.0 F 89 22 114/56 94 L 07/22/24 00:00 98.4 F 87 23 111/54 92 L 07/21/24 20:00 97.8 F 95 H 24 126/76 92 L 07/21/24 18:47 94 H 20 92 L 07/21/24 16:00 98.1 F 102 H 26 H 99/52 91 L 07/21/24 15:34 102 H 20 Pain Assessment - Last Documented Pain Intensity 5 Pain Scale Used 0-10 Pain Scale Intake and Output: Intake & Output 07/20/24 07/21/24 07/22/24 07/23/24 11:59 11:59 11:59 11:59 Intake Total 1000 2493 567 Output Total 1275 Balance 1000 1218 567 Weight 127.2 kg Lab Results: Lab Results-Last 24 Hours 07/21/24 07/21/24 07/21/24 Range/Units 12:10 15:03 16:09 WBC (4.23-9.07) x10^3/uL RBC (4.63-6.08) x10^6/uL Hgb (13.7-17.5) g/dL Hct (40.1-51.0) % MCV (79.0-92.2) fL MCH (25.7-32.2) pg MCHC (32.3-36.5) g/dL RDW (11.6-14.4) % Plt Count (163-337) x10^3/uL MPV (9.4-12.4) fL Sodium (135-145) mmol/L Potassium (3.5-5.1) mmol/L Chloride (98-107) mmol/L Carbon Dioxide (22-30) mmol/L Anion Gap (5-15) MEQ/L BUN (9-20) mg/dL Creatinine (0.66-1.25) mg/dL Estimated GFR ML/MIN Glucose (74-106) mg/dL POC Glucometer 167 H (74 to 106) mg/dL Calcium (8.4-10.2) mg/dL Total Bilirubin (0.2-1.3) mg/dL AST (17-59) U/L ALT (0-50) U/L Alkaline Phosphatase (38-126) U/L Troponin I < 0.012 < 0.012 (0.000-0.033) ng/mL Serum Total Protein (6.3-8.2) g/dL Albumin (3.5-5.0) g/dL 07/21/24 07/22/24 07/22/24 Range/Units 21:00 04:11 04:11 WBC 12.7 H (4.23-9.07) x10^3/uL RBC 3.43 L (4.63-6.08) x10^6/uL Hgb 9.9 L (13.7-17.5) g/dL Hct 29.5 L (40.1-51.0) % MCV 86.0 (79.0-92.2) fL MCH 28.9 (25.7-32.2) pg MCHC 33.6 (32.3-36.5) g/dL RDW 13.5 (11.6-14.4) % Plt Count 199 (163-337) x10^3/uL MPV 9.3 L (9.4-12.4) fL Sodium 133 L (135-145) mmol/L Potassium 3.8 (3.5-5.1) mmol/L Chloride 102 (98-107) mmol/L Carbon Dioxide 23 (22-30) mmol/L Anion Gap 12.8 (5-15) MEQ/L BUN 11 (9-20) mg/dL Creatinine 0.97 (0.66-1.25) mg/dL Estimated GFR 80.9 ML/MIN Glucose 152 H (74-106) mg/dL POC Glucometer 161 H (74 to 106) mg/dL Calcium 8.3 L (8.4-10.2) mg/dL Total Bilirubin 1.00 (0.2-1.3) mg/dL AST 29 (17-59) U/L ALT 17 (0-50) U/L Alkaline Phosphatase 141 H (38-126) U/L Troponin I (0.000-0.033) ng/mL Serum Total Protein 6.3 (6.3-8.2) g/dL Albumin 3.1 L (3.5-5.0) g/dL 07/22/24 07/22/24 Range/Units 07:25 12:17 WBC (4.23-9.07) x10^3/uL RBC (4.63-6.08) x10^6/uL Hgb (13.7-17.5) g/dL Hct (40.1-51.0) % MCV (79.0-92.2) fL MCH (25.7-32.2) pg MCHC (32.3-36.5) g/dL RDW (11.6-14.4) % Plt Count (163-337) x10^3/uL MPV (9.4-12.4) fL Sodium (135-145) mmol/L Potassium (3.5-5.1) mmol/L Chloride (98-107) mmol/L Carbon Dioxide (22-30) mmol/L Anion Gap (5-15) MEQ/L BUN (9-20) mg/dL Creatinine (0.66-1.25) mg/dL Estimated GFR ML/MIN Glucose (74-106) mg/dL POC Glucometer 145 H 147 H (74 to 106) mg/dL Calcium (8.4-10.2) mg/dL Total Bilirubin (0.2-1.3) mg/dL AST (17-59) U/L ALT (0-50) U/L Alkaline Phosphatase (38-126) U/L Troponin I (0.000-0.033) ng/mL Serum Total Protein (6.3-8.2) g/dL Albumin (3.5-5.0) g/dL Radiology Exams: Radiology Procedures Category Date Time Status CHEST 1 VIEW (PORTABLE) Stat Exams 07/21/24 07:14 Completed Ultrasound Unilateral Extremities [VENOUS UNILAT/ Exams 07/21/24 10:29 Completed LIMITED EXTREMIT] [US] Routine Assessment/Plan (1) Pneumonia Current Visit: Yes Status: Acute Qualifiers: Pneumonia type: due to unspecified organism Laterality: right Lung location: lower lobe of lung Qualified Code(s): J18.9 - Pneumonia, unspecified organism Code(s): J18.9 - PNEUMONIA, UNSPECIFIED ORGANISM (2) Pressure ulcer of buttock, unstageable Current Visit: Yes Status: Acute Qualifiers: Laterality: right Qualified Code(s): L89.310 - Pressure ulcer of right buttock, unstageable Code(s): L89.300 - PRESSURE ULCER OF UNSPECIFIED BUTTOCK, UNSTAGEABLE (3) Dehydration Current Visit: Yes Status: Acute Code(s): E86.0 - DEHYDRATION (4) Edema of right lower extremity Current Visit: Yes Status: Acute Code(s): R60.0 - LOCALIZED EDEMA (5) Diarrhea Current Visit: Yes Status: Acute Code(s): R19.7 - DIARRHEA, UNSPECIFIED (6) HTN (hypertension) Current Visit: Yes Status: Chronic Code(s): I10 - ESSENTIAL (PRIMARY) HYPERTENSION (7) Type II diabetes mellitus Current Visit: Yes Status: Chronic Qualifiers: Diabetes mellitus retirement insulin use: without intermediate designer use (8) Hyperlipidemia Current Visit: Yes Status: Chronic Code(s): E78.5 - HYPERLIPIDEMIA, UNSPECIFIED (9) Obesity (BMI 30-39.9) Current Visit: Yes Status: Chronic Code(s): E66.9 - OBESITY, UNSPECIFIED (10) Parkinson disease Current Visit: Yes Status: Chronic Assessment & Plan: (1) Pneumonia Current Visit: Yes Status: Acute Qualifiers: Pneumonia type: due to unspecified organism Laterality: right Lung loc ation: lower lobe of lung Qualified Code(s): J18.9 - Pneumonia, unspecified organism Assessment & Plan: - CXR reviewed - CBC, CMP reviewed - procal elevated - WBC 12.7 - IV antibiotics - RA 98% - Flu/COVID/RSV negative - PT eval - tylenol for fever - BC x2 - tele 07/22 - CBC, CMP reviewed - WBC 12.7 - Continue IV antibiotics - BC x2 pending Code(s): J18.9 - PNEUMONIA, UNSPECIFIED ORGANISM (2) Pressure ulcer of buttock, unstageable Current Visit: Yes Status: Acute Qualifiers: Laterality: right Qualified Code(s): L89.310 - Pressure ulcer of right buttock, unstageable Assessment & Plan: - pics in chart per nursing staff in ER - Pt for wound care - Wound culture - Santyl Topical daily per PT 07/22 - Increased drainage from wound overnight - General surgery consult - IV antibiotics - CT abd/ pelvis w & w/o contrast Code(s): L89.300 - PRESSURE ULCER OF UNSPECIFIED BUTTOCK, UNSTAGEABLE (3) Dehydration Current Visit: Yes Status: Acute Assessment & Plan: - anion gap 16.5 - IV fluids started in ER- Continue 07/22 - resolved - Stop IVF Code(s): E86.0 - DEHYDRATION (4) Edema of right lower extremity Current Visit: Yes Status: Acute Assessment & Plan: - S/P R foot surgery 1 1/2 months ago with podiatry - Dr. Gallagher - Venous duplex RLE- negative - TEDS, elevate legs Code(s): R60.0 - LOCALIZED EDEMA (5) Diarrhea Current Visit: Yes Status: Acute Assessment & Plan: - C-diff and stool culture pending - probiotics Code(s): R19.7 - DIARRHEA, UNSPECIFIED (6) HTN (hypertension) Current Visit: Yes Status: Chronic Assessment & Plan: - BP stable - continue home meds Code(s): I10 - ESSENTIAL (PRIMARY) HYPERTENSION (7) Type II diabetes mellitus Current Visit: Yes Status: Chronic Qualifiers: Diabetes mellitus retirement insulin use: without retirement use Assessment & Plan: - Continue metformin - accuchecks ac/hs - humalog low dose s/s - carb consistent diet - A1C 7.11- 05/24/24 (8) Hyperlipidemia Current Visit: Yes Status: Chronic Assessment & Plan: - continue home med Code(s): E78.5 - HYPERLIPIDEMIA, UNSPECIFIED (9) Obesity (BMI 30-39.9) Current Visit: Yes Status: Chronic Assessment & Plan: - advised ADA diet and exercise control Code(s): E66.9 - OBESITY, UNSPECIFIED (10) Parkinson disease Current Visit: Yes Status: Chronic Assessment & Plan: - Continue home meds VTE: Lovenox PPI: Protonix Next of KIN: Callie Talavera [phone] D/C plan: 2-3 days Code status: full Code(s): G20.A1 - PARKINSON'S DIS W/O DYSKINESIA, W/O MENTION OF FLUCTUATIONS Code(s): G20.A1 - PARKINSON'S DIS W/O DYSKINESIA, W/O MENTION OF FLUCTUATIONS
[2024-07-22] MEDS: NORCO 5/325 MG PO PRN (12:34)
[2024-07-22] MEDS ORDERED: DUONEB 0.5-3 MG/3 ml Neb IH PRN (13:24)
[2024-07-22] MEDS: NORCO 5/325 MG PO ONE (15:46)
--- NOTE | 2024-07-22 17:11 | XRAY ---
Indication: Right buttock wound. Multiple contiguous axial images obtained through the abdomen and pelvis prior to and following 80 cc Isovue 370 contrast as ordered. Comparison: September 02, 2013 Lung bases again demonstrates mild left base of some atelectasis/scarring. New 6 mm posterior right lower lobe indeterminant round noncalcified nodule. Heart not enlarged again with prominent epicardiac fat. Stable small hiatal hernia. Medial right buttock demonstrates new focus of mild cutaneous/subcutaneous induration at least 11 cm in diameter presumed inflammatory/infectious. Also underlying tiny pockets of subcutaneous emphysema concerning for gas-forming infection. No walled off fluid collection/abscess. Noncontrasted images again demonstrate enlarged prostate gland with benign macrocalcifications. No new pathologic visceral calcifications/calculi. Noncontrasted stomach and bowel loops appear nonobstructed with normal appendix. Again sigmoid and lesser degree descending colonic diverticulosis without diverticulitis. No free fluid/air. Postcontrast images demonstrate normal visceral enhancement and renal excretion. Remaining liver, gallbladder, pancreas, spleen, adrenal glands, kidneys, ureters, and bladder are unremarkable. Again moderate scattered aortoiliac calcifications. No AAA or pathological retroperitoneal lymphadenopathy. Osseous structures intact again with osteopenia, mild/moderate multilevel thoracolumbar degenerative spondylosis, and mild bilateral hip degenerative arthropathy. Impression: 1. New emphysematous cellulitis involving right buttock as detailed. No walled off fluid collection/abscess. 2. New 6 mm right lower lobe indeterminant noncalcified nodule. Finding too small for PET/CT. Perhaps more recent outside comparison studies can be submitted for direct comparison. If not, baseline CT chest with follow-up per Fleischner guidelines recommended. 3. Chronic findings including hiatal hernia, enlarged prostate with benign macrocalcifications, colonic diverticulosis, arteriosclerotic disease, and chronic bony findings.
[2024-07-23 05:14] LABS: Hematocrit 31.6 % (40.1-51.0); Hemoglobin 10.4 g/dL (13.7-17.5); Mean Cell Volume 86.8 fL (79.0-92.2); Mean Corpuscular Hemoglobin 28.6 pg (25.7-32.2); Mean Corpuscular Hgb Concent. 32.9 g/dL (32.3-36.5); Mean Platelet Volume 9.7 fL (9.4-12.4); Platelet Count 238 x10^3/uL (163-337); Red Blood Count 3.64 x10^6/uL (4.63-6.08); Red Cell Distribution Width 13.6 % (11.6-14.4); White Blood Count 12.2 x10^3/uL (4.23-9.07)
[2024-07-23 05:31] LABS: ALBUMIN 3.4 g/dL (3.5-5.0); ANION GAP 12.9 MEQ/L (5-15); BILIRUBIN,TOTAL 0.8 mg/dL (0.2-1.3); Calcium 8.5 mg/dL (8.4-10.2); Creatinine 1 1.17 mg/dL (0.66-1.25); EST GLOMERULAR FILTRATION RATE 64.6 ML/MIN; Potassium 3.9 mmol/L (3.5-5.1); Total Protein 6.8 g/dL (6.3-8.2)
--- NOTE | 2024-07-23 10:17 | CONS ---
HISTORY OF PRESENT ILLNESS: Patient was seen today as a surgical consult for Dr. Reese. Patient is a 78-year-old who presented here originally with some shortness of breath. He is being treated for pneumonia currently. Incidentally, patient has complained of diarrhea 4 to 5 months back. He has been incontinent of those. He complained of rectal pain. He was noted to have a necrotic wound on exam by his nurse. Patient does live alone. He is obese. He reports that his last colonoscopy was in 2004 and that he had some polyps. He denies any other abdominal symptoms at this time. He does incidentally also have a history of some MRSA in wounds in the past. He did also deny family history of any colon cancer. He also denied rectal bleeding. PAST MEDICAL HISTORY: Diabetes, hypertension, Parkinson's. MEDICATIONS: Per chart. PAST SURGICAL HISTORY: No abdominal surgeries. He had had a hand surgery, knee surgery. FAMILY HISTORY: No colon cancer. SOCIAL HISTORY: None reported. ALLERGIES: Per chart. REVIEW OF SYSTEMS: CONSTITUTIONAL: Denies fever or chills. CHEST: Denies shortness of breath. CARDIOVASCULAR: Denies chest pain. ABDOMEN: Denies abdominal pain. PHYSICAL EXAMINATION: GENERAL: No acute distress. CARDIOVASCULAR: Regular rate and rhythm. RESPIRATORY: Nonlabored. No shortness of breath. ABDOMEN: Soft. GENITOURINARY/RECTAL: Patient has a right buttock non-stageable pressure wound with some eschar present and then more distal to that above the anus he has a tunneling and opening with a 4 cm tunnel. Rectal exam normal. It does not appear that this connects with the rectum. IMPRESSION: A 78-year-old male with a right buttock and central gluteal crease wound. PLAN: He has a CAT scan that is pending, it has not been done yet. Patient has some tracking of this wound from the buttock to just above his anal area. It does not appear that this connects with the anal area. It does need some debridement. It is uncertain if this is some sort of issue coming from his colon at this time. He is not up-to-date on the colonoscopy and we do not recommend doing that while he has pneumonia here. It will be interesting to see what the CAT scan says. He certainly could have some colon issue here. We will also plan for a debridement tomorrow on the wound with Dr. Reese. This report was dictated for Dr. Mckeon by Carine Leon NP.
[2024-07-23] MEDS ORDERED: Lactated Ringers 1,000 ML IV ONE ×2 (10:21→18:21)
[2024-07-23] MEDS: Lactated Ringers 1,000 ML IV SCH (11:07)
--- NOTE | 2024-07-23 12:02 | PCM.NOTE ---
Date and Time: 07/23/24 1151 Subjective Assessment: 07/21/24 is a 78 year old male with pmhx of hyperlipidemia, HTN, type II DM, OA, parkinson's, and obesity. Pt presented via EMS to ER today for 10 day of feeling fatigued, body aches, and SOB. Pt reports "he feels like he has been hit by a truck." Pt reports he developed some chest tightness earlier this AM which is why he called an ambulance. Pt currently denies any cp, radiation of pain into shoulder, back or jaw. Pt reports the last time he felt this poorly was when he had COVID. Pt denies any nausea or vomiting, does endorse some mild diarrhea that started several days ago. FLU/COVID/ RSV negative. WBC 12.7, anion gap 16.5, Procal 0.102. CXR + for pneumonia, Doxycycline, duonebs, IVF started in ER. Will continue IV antibiotics and IVF. Pt had a temp of 99.1 in ER and tylenol gave. Pt has a wound or right buttock and will have PT eval for wound care. Wound culture ordered. Pics of wound taken in ER and in chart. + RLE edema, pt reports this started after a right foot surgery with Dr. Gallagher 1 1/2 months ago. He reports he has had RLE edema since. Venous duplex of RLE ordered. Legs elevated on pillow to decrease edema. Pt denies CP, abd pain, N/V/D. 07/22/24 Pt sitting up in the chair today. He is having increased pain, drainage, redness, and hardening of buttock around wound. Per nursing dressing over wound was changed 4- 5 times last night with significant amount of foul smelling drainage. He has excoriation of intergluteal cleft from drainage now. General surgery consulted. He had a temp this AM of 100.2. Narcotic pain medication added for increased pain. Continue IV antibiotics for pneumonia and wound. IV fluids stopped. He denies CP, abd pain, N/V/D. 07/23/24 Pt resting in the chair. He is scheduled for debridement of buttock wound by general surgery. He is currently NPO for this. Lovenox on hold. Continue IV antibiotics for wound and pneumonia. BCx2 negative. Pt denies any further concerns at this time and pain well controlled. Pt wanting [facility] at D/C . - Review of Systems Constitutional: No Fever, No Chills Eyes: No Symptoms Ears, Nose, & Throat: No Symptoms Respiratory: No Cough, No Short Of Breath Cardiac: No Chest Pain, No Edema, No Syncope Abdominal/Gastrointestinal: No Abdominal Pain, No Nausea, No Vomiting, No Diarrhea Genitourinary Symptoms: No Dysuria Musculoskeletal: No Back Pain, No Neck Pain Skin: Other (Wound right buttock, redness of glutel clef, cellulitis and hardening.), No Rash Neurological: No Dizziness, No Focal Weakness, No Sensory Changes Psychological: No Symptoms Endocrine: No Symptoms Hematologic/Lymphatic: No Symptoms Immunological/Allergic: No Symptoms Objective Exam General Appearance: no apparent distress, alert, obese Neurologic Exam: alert, oriented x 3, cooperative, normal mood/affect, nml cerebellar function, sensation nml, No motor deficits Skin Exam: normal color, warm, dry, other (wound of right buttock and above anus with foul smelling drainage, redness, hardening of skin surrounding, excoration of gluteal clef) Wound Assessment: Skin/Wound Assessment Wound/Incision Assessment Start: 07/22/24 04:06 Text: Status: Active Freq: Q8H Protocol: Document 07/23/24 07:00 RB (Rec: 07/23/24 09:16 RB [id number]) Wound/Incision Assessment Right Other Wound Assessment Shift Assessment Wound Type Pressure Ulcer Wound Stage Unstageable Dressing Status Dry & Intact Drainage Amount Minimal Drainage Description Purulent Drainage Odor Foul Odor General Appearance Bleeding Length (cm) (cm) 7 Width (cm) (cm) 4 Surrounding Tissue [place] Topical Solution/Irrigant Saline Irrigant Packing Type Gauze Roll Comment TUNNELLING BETWEEN 12 O'CLOCK AND 2 O'CLOCK GREATER THAN 14CM - PURITAN DM MEASURING STICK INSERTED INTO WOUND AND EXITED OUT WOUND TO RIGHT INNER BUTTOCK. WET TO DRY DRESSING COVERED WITH ABD PAD AND SECURE WITH FOAM TAPE.- remains true Right Buttock Wound Assessment Shift Assessment Wound Type Pressure Ulcer Wound Stage Unstageable Dressing Status Dry & Intact Drainage Amount Moderate Drainage Description Purulent Drainage Odor Foul Odor General Appearance Necrotic Length (cm) (cm) 2 Width (cm) (cm) 2.2 Surrounding Tissue Bright Red,Edematous,Indurated ,Undermined,Tunnelling, Macerated Topical Solution/Irrigant Saline Irrigant Packing Type Gauze Roll Primary Dressing Absorbant Pad Comment TUNNELLING BETWEEN 6 O'CLOCK AND 7 O'CLOCK GREATER THAN 14CM - PURITAN DM MEASURING STICK INSERTED INTO WOUND AND EXITED OUT WOUND TO ANAL CLEFT JUST ABOVE RECUTUM. UNDERMINING AT 4CM FROM 2 O' CLOCK TO 4 O'CLOCK.-remains true WET TO DRY DRESSING COVERED WITH ABD PAD AND SECURE WITH FOAM TAPE. Wound Photo Photo Taken No Comment: previous photo in chart Eye Exam: PERRL, EOMI, eyes nml inspection Ears, Nose, Throat Exam: normal ENT inspection, pharynx normal, moist mucous membranes Neck Exam: normal inspection, non-tender, supple, full range of motion Respiratory Exam: normal breath sounds, lungs clear, No respiratory distress Cardiovascular Exam: regular rate/rhythm, normal heart sounds Gastrointestinal/Abdomen Exam: soft, No tenderness, No mass Extremity Exam: normal inspection, normal range of motion Back Exam: normal inspection, normal range of motion, No CVA tenderness, No vertebral tenderness Male Genitalia Exam: deferred Rectal Exam: deferred Objective Data Vital Signs: Vital Signs - 24 hr Temp Pulse Resp BP Pulse Ox 07/23/24 09:25 99.6 F 76 21 107/73 97 07/23/24 08:00 99.6 F 76 21 107/73 97 07/23/24 05:19 84 18 93 L 07/23/24 04:00 98.7 F 78 24 130/61 97 07/22/24 23:54 98.0 F 81 20 134/60 96 07/22/24 20:00 97.3 F 80 22 109/61 95 07/22/24 17:26 73 20 96 07/22/24 16:00 97.6 F 91 H 17 112/62 94 L 07/22/24 12:00 97.2 F 83 19 127/59 94 L Pain Assessment - Last Documented Pain Intensity 0 Pain Scale Used 0-10 Pain Scale Intake and Output: Intake & Output 07/20/24 07/21/24 07/22/24 07/23/24 11:59 11:59 11:59 11:59 Intake Total 1000 2493 1727 Output Total 1275 250 Balance 1000 1218 1477 Weight 127.2 kg 127.2 kg Lab Results: Lab Results-Last 24 Hours 07/22/24 07/22/2407/22/24 Range/Units 12:17 16:47 21:32 WBC (4.23-9.07) x10^3/uL RBC (4.63-6.08) x10^6/uL Hgb (13.7-17.5) g/dL Hct (40.1-51.0) % MCV (79.0-92.2) fL MCH (25.7-32.2) pg MCHC (32.3-36.5) g/dL RDW (11.6-14.4) % Plt Count (163-337) x10^3/uL MPV (9.4-12.4) fL Sodium (135-145) mmol/L Potassium (3.5-5.1) mmol/L Chloride (98-107) mmol/L Carbon Dioxide (22-30) mmol/L Anion Gap (5-15) MEQ/L BUN (9-20) mg/dL Creatinine (0.66-1.25) mg/dL Estimated GFR ML/MIN Glucose (74-106) mg/dL POC Glucometer 147 H 113 H 132 H (74 to 106) mg/dL Calcium (8.4-10.2) mg/dL Total Bilirubin (0.2-1.3) mg/dL AST (17-59) U/L ALT (0-50) U/L Alkaline Phosphatase (38-126) U/L Serum Total Protein (6.3-8.2) g/dL Albumin (3.5-5.0) g/dL 07/23/24 07/23/24 07/23/24 Range/Units 04:17 04:17 07:48 WBC 12.2 H (4.23-9.07) x10^3/uL RBC 3.64 L (4.63-6.08) x10^6/uL Hgb 10.4 L (13.7-17.5) g/dL Hct 31.6 L (40.1-51.0) % MCV 86.8 (79.0-92.2) fL MCH 28.6 (25.7-32.2) pg MCHC 32.9 (32.3-36.5) g/dL RDW 13.6 (11.6-14.4) % Plt Count 238 (163-337) x10^3/uL MPV 9.7 (9.4-12.4) fL Sodium 133 L (135-145) mmol/L Potassium 3.9 (3.5-5.1) mmol/L Chloride 102 (98-107) mmol/L Carbon Dioxide 23 (22-30) mmol/L Anion Gap 12.9 (5-15) MEQ/L BUN 17 (9-20) mg/dL Creatinine 1.17 (0.66-1.25) mg/dL Estimated GFR 64.6 ML/MIN Glucose 160 H (74-106) mg/dL POC Glucometer 133 H (74 to 106) mg/dL Calcium 8.5 (8.4-10.2) mg/dL Total Bilirubin 0.80 (0.2-1.3) mg/dL AST 32 (17-59) U/L ALT 20 (0-50) U/L Alkaline Phosphatase 144 H (38-126) U/L Serum Total Protein 6.8 (6.3-8.2) g/dL Albumin 3.4 L (3.5-5.0) g/dL Radiology Exams: Radiology Procedures Category Date Time Status ABDOMEN AND PELVIS W&WO CONTRA [CT] Routine Exams 07/22/24 12:38 Completed Multi-Disciplinary Progress Notes: Multi-Disciplinary Progress Notes 07/22/24 13:24 Radiology Note by Sabrina Ha PT HAS NO PULMONARY HX TO INDICATE NEB TX. FERNANDA BUCHANAN TO PRN Initialized on 07/22/24 13:24 - END OF NOTE Assessment/Plan (1) Pneumonia Current Visit: Yes Status: Acute Qualifiers: Pneumonia type: due to unspecified organism Laterality: right Lung location: lower lobe of lung Qualified Code(s): J18.9 - Pneumonia, unspecified organism Code(s): J18.9 - PNEUMONIA, UNSPECIFIED ORGANISM (2) Pressure ulcer of buttock, unstageable Current Visit: Yes Status: Acute Qualifiers: Laterality: right Qualified Code(s): L89.310 - Pressure ulcer of right buttock, unstageable Code(s): L89.300 - PRESSURE ULCER OF UNSPECIFIED BUTTOCK, UNSTAGEABLE (3) Dehydration Current Visit: Yes Status: Acute Code(s): E86.0 - DEHYDRATION (4) Edema of right lower extremity Current Visit: Yes Status: Acute Code(s): R60.0 - LOCALIZED EDEMA (5) Diarrhea Current Visit: Yes Status: Acute Code(s): R19.7 - DIARRHEA, UNSPECIFIED (6) HTN (hypertension) Current Visit: Yes Status: Chronic Code(s): I10 - ESSENTIAL (PRIMARY) HYPERTENSION (7) Type II diabetes mellitus Current Visit: Yes Status: Chronic Qualifiers: Diabetes mellitus penitentiary insulin use: without penitentiary use (8) Hyperlipidemia Current Visit: Yes Status: Chronic Code(s): E78.5 - HYPERLIPIDEMIA, UNSPECIFIED (9) Obesity (BMI 30-39.9) Current Visit: Yes Status: Chronic Code(s): E66.9 - OBESITY, UNSPECIFIED (10) Parkinson disease Current Visit: Yes Status: Chronic Assessment & Plan: (1) Pneumonia Current Visit: Yes Status: Acute Qualifiers: Pneumonia type: due to unspecified organism Laterality: right Lung loc ation: lower lobe of lung Qualified Code(s): J18.9 - Pneumonia, unspecified organism Assessment & Plan: - CXR reviewed - CBC, CMP reviewed - procal elevated - WBC 12.7 - IV antibiotics - RA 98% - Flu/COVID/RSV negative - PT eval - tylenol for fever - BC x2 - tele 07/22 - CBC, CMP reviewed - WBC 12.7 - Continue IV antibiotics - BC x2 pending 07/23 - BCX2 negative - WBC 12.2 - Continue IV antibiotics - CBC, CMP reviewed - RA 97% Code(s): J18.9 - PNEUMONIA, UNSPECIFIED ORGANISM (2) Pressure ulcer of buttock, unstageable Current Visit: Yes Status: Acute Qualifiers: Laterality: right Qualified Code(s): L89.310 - Pressure ulcer of right buttock, unstageable Assessment & Plan: - pics in chart per nursing staff in ER - Pt for wound care - Wound culture - Santyl Topical daily per PT 07/22 - Increased drainage from wound overnight - General surgery consult - IV antibiotics - CT abd/ pelvis w & w/o contrast- reviewed 07/23 - Wound debridement today with GS- Cellulitis, hital hernia, enlarged prostate with macro calcifications- benign, diverticulosis - Lovenox held - IV antibiotics - Pics in chart by nursing Code(s): L89.300 - PRESSURE ULCER OF UNSPECIFIED BUTTOCK, UNSTAGEABLE (3) Dehydration Current Visit: Yes Status: Acute Assessment & Plan: - anion gap 16.5 - IV fluids started in ER- Continue 07/22 - resolved - Stop IVF Code(s): E86.0 - DEHYDRATION (4) Edema of right lower extremity Current Visit: Yes Status: Acute Assessment & Plan: - S/P R foot surgery 1 1/2 months ago with podiatry - Dr. Gallagher - Venous duplex RLE- negative - TEDS, elevate legs Code(s): R60.0 - LOCALIZED EDEMA (5) Diarrhea Current Visit: Yes Status: Acute Assessment & Plan: - C-diff and stool culture pending - probiotics Code(s): R19.7 - DIARRHEA, UNSPECIFIED (6) HTN (hypertension) Current Visit: Yes Status: Chronic Assessment & Plan: - BP stable - continue home meds Code(s): I10 - ESSENTIAL (PRIMARY) HYPERTENSION (7) Type II diabetes mellitus Current Visit: Yes Status: Chronic Qualifiers: Diabetes mellitus penitentiary insulin use: without manager long term care use Assessment & Plan: - Continue metformin - accuchecks ac/hs - humalog low dose s/s - carb consistent diet - A1C 7.11- 05/24/24- controlled (8) Hyperlipidemia Current Visit: Yes Status: Chronic Assessment & Plan: - continue home med Code(s): E78.5 - HYPERLIPIDEMIA, UNSPECIFIED (9) Obesity (BMI 30-39.9) Current Visit: Yes Status: Chronic Assessment & Plan: - advised ADA diet and exercise control Code(s): E66.9 - OBESITY, UNSPECIFIED (10) Parkinson disease Current Visit: Yes Status: Chronic Assessment & Plan: - Continue home meds Code(s): G20.A1 - PARKINSON'S DIS W/O DYSKINESIA, W/O MENTION OF FLUCTUATIONS Code(s): G20.A1 - PARKINSON'S DIS W/O DYSKINESIA, W/O MENTION OF FLUCTUATIONS (11) Enlarged prostate Current Visit: Yes Status: Chronic Assessment & Plan: - PSA VTE: Lovenox PPI: Protonix Next of KIN: Callie Talavera [phone] D/C plan: 2-3 days Code status: full Code(s): N40.0 - BENIGN PROSTATIC HYPERPLASIA WITHOUT LOWER URINRY TRACT SYMP
[2024-07-23] MEDS ORDERED: SUBLIMAZE 100 MCG/2 ML ONE (17:25)
[2024-07-23] MEDS ORDERED: Zofran 4 MG/2 ML VIAL ONE (17:29)
[2024-07-23] MEDS ORDERED: DIPRIVAN 200 MG/20 ML IV ONE (17:29)
[2024-07-23] MEDS ORDERED: MEFOXIN 2 GM PREMIX** 2 GM/50 ML ML IV ONE (17:32)
[2024-07-23] MEDS ORDERED: XYLOCAINE 1%/Epi 1:100000 MDV 20 ML ONE (17:45)
[2024-07-23] MEDS ORDERED: Zofran 4 MG/2 ML VIAL IV PRN (19:28)
[2024-07-23] MEDS: FLAGYL 500 MG IVPB 500 MG/100 ML BAG IV SCH (21:20)
[2024-07-24] MEDS: MORPHINE SULFATE 4 MG INJ IV PRN (04:54)
[2024-07-24 05:52] LABS: Hematocrit 28.9 % (40.1-51.0); Hemoglobin 9.3 g/dL (13.7-17.5); Mean Cell Volume 88.1 fL (79.0-92.2); Mean Corpuscular Hemoglobin 28.4 pg (25.7-32.2); Mean Corpuscular Hgb Concent. 32.2 g/dL (32.3-36.5); Mean Platelet Volume 9.3 fL (9.4-12.4); Platelet Count 221 x10^3/uL (163-337); Red Blood Count 3.28 x10^6/uL (4.63-6.08); Red Cell Distribution Width 13.4 % (11.6-14.4); White Blood Count 10.7 x10^3/uL (4.23-9.07)
[2024-07-24 06:16] LABS: ANION GAP 12.1 MEQ/L (5-15); Calcium 8.3 mg/dL (8.4-10.2); Creatinine 1 1.17 mg/dL (0.66-1.25); EST GLOMERULAR FILTRATION RATE 64.6 ML/MIN; Potassium 3.7 mmol/L (3.5-5.1)
[2024-07-24] MEDS ORDERED: CHLORASEPTIC SPRAY 180 ML PO PRN (11:51)
--- NOTE | 2024-07-24 11:55 | PCM.NOTE ---
Date and Time: 07/24/24 1147 Subjective Assessment: 07/21/24 is a 78 year old male with pmhx of hyperlipidemia, HTN, type II DM, OA, parkinson's, and obesity. Pt presented via EMS to ER today for 10 day of feeling fatigued, body aches, and SOB. Pt reports "he feels like he has been hit by a truck." Pt reports he developed some chest tightness earlier this AM which is why he called an ambulance. Pt currently denies any cp, radiation of pain into shoulder, back or jaw. Pt reports the last time he felt this poorly was when he had COVID. Pt denies any nausea or vomiting, does endorse some mild diarrhea that started several days ago. FLU/COVID/ RSV negative. WBC 12.7, anion gap 16.5, Procal 0.102. CXR + for pneumonia, Doxycycline, duonebs, IVF started in ER. Will continue IV antibiotics and IVF. Pt had a temp of 99.1 in ER and tylenol gave. Pt has a wound or right buttock and will have PT eval for wound care. Wound culture ordered. Pics of wound taken in ER and in chart. + RLE edema, pt reports this started after a right foot surgery with Dr. Gallagher 1 1/2 months ago. He reports he has had RLE edema since. Venous duplex of RLE ordered. Legs elevated on pillow to decrease edema. Pt denies CP, abd pain, N/V/D. 07/22/24 Pt sitting up in the chair today. He is having increased pain, drainage, redness, and hardening of buttock around wound. Per nursing dressing over wound was changed 4- 5 times last night with significant amount of foul smelling drainage. He has excoriation of intergluteal cleft from drainage now. General surgery consulted. He had a temp this AM of 100.2. Narcotic pain medication added for increased pain. Continue IV antibiotics for pneumonia and wound. IV fluids stopped. He denies CP, abd pain, N/V/D. 07/23/24 Pt resting in the chair. He is scheduled for debridement of buttock wound by general surgery. He is currently NPO for this. Lovenox on hold. Continue IV antibiotics for wound and pneumonia. BCx2 negative. Pt denies any further concerns at this time and pain well controlled. Pt wanting [facility] at D/C. 07/24/24 Pt sitting up in chair today. He is POD #2 from debridement of buttock wound by general surgery. He feels his pain is well controlled at this time. Packing to be removed today and wet to dry dressing placed. Wound cultures pending. Hgb 9.3. BC x2 negative. He does have some sore throat pain from intubation yesterday during surgery- chloraseptic spray PRN started. Surgery started flagyl. Will continue ceftriaxone and stop azithromycin. He is RA 95% and denies SOB, lungs are clear. He denies CP, abd. pain, N/V/D. Surgery would like pt to go to rehab at d/c for wound care BID. Will discuss with case management Friday. - Review of Systems Constitutional: No Fever, No Chills Eyes: No Symptoms Ears, Nose, & Throat: No Symptoms Respiratory: No Cough, No Short Of Breath Cardiac: No Chest Pain, No Edema, No Syncope Abdominal/Gastrointestinal: No Abdominal Pain, No Nausea, No Vomiting, No Diarrhea Genitourinary Symptoms: No Dysuria Musculoskeletal: No Back Pain, No Neck Pain Skin: Skin Lesions (wound of right buttock and above anus with foul smelling drainage, redness, hardening of skin surrounding, excoration of gluteal clef), Other, No Rash Neurological: No Dizziness, No Focal Weakness, No Sensory Changes Psychological: No Symptoms Endocrine: No Symptoms Hematologic/Lymphatic: No Symptoms Immunological/Allergic: No Symptoms Objective Exam General Appearance: no apparent distress, alert, obese Neurologic Exam: alert, oriented x 3, cooperative, normal mood/affect, nml cerebellar function, sensation nml, No motor deficits Skin Exam: normal color, warm, dry, other (wound of right buttock and above anus with foul smelling drainage, redness, hardening of skin surrounding, excoration of gluteal clef) Wound Assessment: Skin/Wound Assessment Wound/Incision Assessment Start: 07/22/24 04:06 Text: Status: Active Freq: Q8H Protocol: Document 07/24/24 07:05 MICHAEL (Rec: 07/24/24 11:42 MICHAEL [id number]) Wound/Incision Assessment Right Other Wound Assessment Shift Assessment Wound Type Pressure Ulcer Wound Stage Unstageable Dressing Status Dry & Intact Drainage Amount Minimal Comment surgical dressing in place with iodoform, 4x4's and tape. Remains true Right Buttock Wound Assessment Shift Assessment Wound Type Pressure Ulcer Wound Stage Unstageable Dressing Status Dry & Intact Drainage Amount Minimal Drainage Description Purulent Primary Dressing Absorbant Pad Comment surgical dressing in place. Remains true. Wound Photo Photo Taken No Comment: previous photo in chart Eye Exam: PERRL, EOMI, eyes nml inspection Ears, Nose, Throat Exam: normal ENT inspection, pharynx normal, moist mucous membranes Neck Exam: normal inspection, non-tender, supple, full range of motion Respiratory Exam: normal breath sounds, lungs clear, No respiratory distress Cardiovascular Exam: regular rate/rhythm, normal heart sounds Gastrointestinal/Abdomen Exam: soft, No tenderness, No mass Extremity Exam: normal inspection, normal range of motion Back Exam: normal inspection, normal range of motion, No CVA tenderness, No vertebral tenderness Male Genitalia Exam: deferred Rectal Exam: deferred Objective Data Vital Signs: Vital Signs - 24 hr Temp Pulse Resp BP Pulse Ox 07/24/24 11:34 97.8 F 80 18 115/54 95 07/24/24 07:39 98.7 F 78 17 112/59 94 L 07/24/24 03:47 97.5 F 85 19 112/56 95 07/24/24 00:00 97.7 F 78 19 110/55 95 07/23/24 21:30 97.7 F 63 18 92/52 95 07/23/24 20:30 97.5 F 63 20 95/51 94 L 07/23/24 20:00 97.1 F 77 20 115/58 98 07/23/24 19:30 97.3 F 74 18 113/64 99 07/23/24 19:15 97.5 F 72 20 109/52 95 07/23/24 19:11 70 20 95 07/23/24 16:00 98.2 F 80 16 119/62 97 07/23/24 12:00 99.1 F 75 21 125/66 97 Pain Assessment - Last Documented Pain Intensity 0 Pain Scale Used 0-10 Pain Scale Intake and Output: Intake & Output 07/21/24 07/22/24 07/23/24 07/24/24 11:59 11:59 11:59 11:59 Intake Total 1000 2493 1727 360 Output Total 1275 250 100 Balance 1000 1218 1477 260 Weight 127.2 kg 127.2 kg Lab Results: Lab Results-Last 24 Hours 07/23/24 07/23/24 07/23/24 Range/Units 12:15 16:37 20:48 WBC (4.23-9.07) x10^3/uL RBC (4.63-6.08) x10^6/uL Hgb (13.7-17.5) g/dL Hct (40.1-51.0) % MCV (79.0-92.2) fL MCH (25.7-32.2) pg MCHC (32.3-36.5) g/dL RDW (11.6-14.4) % Plt Count (163-337) x10^3/uL MPV (9.4-12.4) fL Sodium (135-145) mmol/L Potassium (3.5-5.1) mmol/L Chloride (98-107) mmol/L Carbon Dioxide (22-30) mmol/L Anion Gap (5-15) MEQ/L BUN (9-20) mg/dL Creatinine (0.66-1.25) mg/dL Estimated GFR ML/MIN Glucose (74-106) mg/dL POC Glucometer 112 H 123 H 158 H (74 to 106) mg/dL Calcium (8.4-10.2) mg/dL 07/24/24 07/24/24 07/24/24 Range/Units 05:46 05:46 06:51 WBC 10.7 H (4.23-9.07) x10^3/uL RBC 3.28 L (4.63-6.08) x10^6/uL Hgb 9.3 L (13.7-17.5) g/dL Hct 28.9 L (40.1-51.0) % MCV 88.1 (79.0-92.2) fL MCH 28.4 (25.7-32.2) pg MCHC 32.2 L (32.3-36.5) g/dL RDW 13.4 (11.6-14.4) % Plt Count 221 (163-337) x10^3/uL MPV 9.3 L (9.4-12.4) fL Sodium 134 L (135-145) mmol/L Potassium 3.7 (3.5-5.1) mmol/L Chloride 102 (98-107) mmol/L Carbon Dioxide 23 (22-30) mmol/L Anion Gap 12.1 (5-15) MEQ/L BUN 20 (9-20) mg/dL Creatinine 1.17 (0.66-1.25) mg/dL Estimated GFR 64.6 ML/MIN Glucose 153 H (74-106) mg/dL POC Glucometer 138 H (74 to 106) mg/dL Calcium 8.3 L (8.4-10.2) mg/dL 07/24/24 Range/Units 11:10 WBC (4.23-9.07) x10^3/uL RBC (4.63-6.08) x10^6/uL Hgb (13.7-17.5) g/dL Hct (40.1-51.0) % MCV (79.0-92.2) fL MCH (25.7-32.2) pg MCHC (32.3-36.5) g/dL RDW (11.6-14.4) % Plt Count (163-337) x10^3/uL MPV (9.4-12.4) fL Sodium (135-145) mmol/L Potassium (3.5-5.1) mmol/L Chloride (98-107) mmol/L Carbon Dioxide (22-30) mmol/L Anion Gap (5-15) MEQ/L BUN (9-20) mg/dL Creatinine (0.66-1.25) mg/dL Estimated GFR ML/MIN Glucose (74-106) mg/dL POC Glucometer 145 H (74 to 106) mg/dL Calcium (8.4-10.2) mg/dL Radiology Exams: Radiology Procedures Category Date Time Status ABDOMEN AND PELVIS W&WO CONTRA [CT] Routine Exams 07/22/24 12:38 Completed Assessment/Plan (1) Pneumonia Current Visit: Yes Status: Acute Qualifiers: Pneumonia type: due to unspecified organism Laterality: right Lung location: lower lobe of lung Qualified Code(s): J18.9 - Pneumonia, unspecified organism Code(s): J18.9 - PNEUMONIA, UNSPECIFIED ORGANISM (2) Pressure ulcer of buttock, unstageable Current Visit: Yes Status: Acute Qualifiers: Laterality: right Qualified Code(s): L89.310 - Pressure ulcer of right buttock, unstageable Code(s): L89.300 - PRESSURE ULCER OF UNSPECIFIED BUTTOCK, UNSTAGEABLE (3) Dehydration Current Visit: Yes Status: Acute Code(s): E86.0 - DEHYDRATION (4) Edema of right lower extremity Current Visit: Yes Status: Acute Code(s): R60.0 - LOCALIZED EDEMA (5) Diarrhea Current Visit: Yes Status: Acute Code(s): R19.7 - DIARRHEA, UNSPECIFIED (6) HTN (hypertension) Current Visit: Yes Status: Chronic Code(s): I10 - ESSENTIAL (PRIMARY) HYPERTENSION (7) Type II diabetes mellitus Current Visit: Yes Status: Chronic Qualifiers: Diabetes mellitus long chain quiller tender insulin use: without long-term use (8) Hyperlipidemia Current Visit: Yes Status: Chronic Code(s): E78.5 - HYPERLIPIDEMIA, UNSPECIFIED (9) Obesity (BMI 30-39.9) Current Visit: Yes Status: Chronic Code(s): E66.9 - OBESITY, UNSPECIFIED (10) Parkinson disease Current Visit: Yes Status: Chronic Code(s): G20.A1 - PARKINSON'S DIS W/O DYSKINESIA, W/O MENTION OF FLUCTUATIONS (11) Enlarged prostate Current Visit: Yes Status: Chronic Assessment & Plan: (1) Pneumonia Current Visit: Yes Status: Acute Qualifiers: Pneumonia type: due to unspecified organism Laterality: right Lung location: lower lobe of lung Qualified Code(s): J18.9 - Pneumonia, unspecified organism Assessment & Plan: - CXR reviewed - CBC, CMP reviewed - procal elevated - WBC 12.7 - IV antibiotics - RA 98% - Flu/COVID/RSV negative - PT eval - tylenol for fever - BC x2 - tele 07/22 - CBC, CMP reviewed - WBC 12.7 - Continue IV antibiotics - BC x2 pending 07/23 - BCX2 negative - WBC 12.2 - Continue IV antibiotics - CBC, CMP reviewed - RA 97% 07/24 - Azithromycin stopped, continue ceftriaxone - CBC, CMP reviewed - RA 95% Code(s): J18.9 - PNEUMONIA, UNSPECIFIED ORGANISM (2) Pressure ulcer of buttock, unstageable Current Visit: Yes Status: Acute Qualifiers: Laterality: right Qualified Code(s): L89.310 - Pressure ulcer of right buttock, unstageable Assessment & Plan: - pics in chart per nursing staff in ER - Pt for wound care - Wound culture - Santyl Topical daily per PT 07/22 - Increased drainage from wound overnight - General surgery consult - IV antibiotics - CT abd/ pelvis w & w/o contrast- reviewed 07/23 - Wound debridement today with GS- Cellulitis, hital hernia, enlarged prostate with macro calcifications- benign, diverticulosis - Lovenox held - IV antibiotics - Pics in chart by nursing - Post op day #1 - Flagyl started by GS - Wound cultures done in OR- pending 07/24 - Post op day #2 - Per GS: remove packing tomorrow around noon, use normal saline wet to dry dressing and sitz baths after BM as needed pt needs wound care twice daily, short term prison stay would be best moving forward, he will call to check on patient. Code(s): L89.300 - PRESSURE ULCER OF UNSPECIFIED BUTTOCK, UNSTAGEABLE (3) Dehydration Current Visit: Yes Status: Acute Assessment & Plan: - anion gap 16.5 - IV fluids started in ER- Continue 07/22 - resolved - Stop IVF Code(s): E86.0 - DEHYDRATION (4) Edema of right lower extremity Current Visit: Yes Status: Acute Assessment & Plan: - S/P R foot surgery 1 1/2 months ago with podiatry - Dr. Gallagher - Venous duplex RLE- negative - TEDS, elevate legs Code(s): R60.0 - LOCALIZED EDEMA (5) Diarrhea Current Visit: Yes Status: Acute Assessment & Plan: - C-diff and stool culture pending - probiotics 07/24 - no diarrhea since admission Code(s): R19.7 - DIARRHEA, UNSPECIFIED (6) HTN (hypertension) Current Visit: Yes Status: Chronic Assessment & Plan: - BP stable - continue home meds Code(s): I10 - ESSENTIAL (PRIMARY) HYPERTENSION (7) Type II diabetes mellitus Current Visit: Yes Status: Chronic Qualifiers: Diabetes mellitus long-term insulin use: without long chain quiller tender use Assessment & Plan: - Continue metformin - accuchecks ac/hs - humalog low dose s/s - carb consistent diet - A1C 7.11- 05/24/24- controlled (8) Hyperlipidemia Current Visit: Yes Status: Chronic Assessment & Plan: - continue home med Code(s): E78.5 - HYPERLIPIDEMIA, UNSPECIFIED (9) Obesity (BMI 30-39.9) Current Visit: Yes Status: Chronic Assessment & Plan: - advised ADA diet and exercise control Code(s): E66.9 - OBESITY, UNSPECIFIED (10) Parkinson disease Current Visit: Yes Status: Chronic Assessment & Plan: - Continue home meds Code(s): G20.A1 - PARKINSON'S DIS W/O DYSKINESIA, W/O MENTION OF FLUCTUATIONS (11) Enlarged prostate Current Visit: Yes Status: Chronic Assessment & Plan: - PSA- pending Code(s): N40.0 - BENIGN PROSTATIC HYPERPLASIA WITHOUT LOWER URINRY TRACT SYMP (12) Sore throat Current Visit: Yes Status: Acute Assessment & Plan: - Chloraseptic spray PRN - From post op intubation from surgery yesterday VTE: Lovenox PPI: Protonix Next of KIN: Callie Talavera [phone] D/C plan: 2-3 days Code status: full Code(s): J02.9 - ACUTE PHARYNGITIS, UNSPECIFIED
[2024-07-24] MEDS: NORCO 5/325 MG PO PRN (15:00)
[2024-07-25 05:51] LABS: Hemoglobin 9.3 g/dL (13.7-17.5); Mean Cell Volume 87.3 fL (79.0-92.2); Mean Corpuscular Hgb Concent. 32.1 g/dL (32.3-36.5); Mean Platelet Volume 9.2 fL (9.4-12.4); Platelet Count 242 x10^3/uL (163-337); Red Blood Count 3.32 x10^6/uL (4.63-6.08); Red Cell Distribution Width 13.4 % (11.6-14.4); White Blood Count 9.5 x10^3/uL (4.23-9.07)
[2024-07-25 06:18] LABS: ANION GAP 12.1 MEQ/L (5-15); Calcium 8.4 mg/dL (8.4-10.2); Creatinine 1 0.92 mg/dL (0.66-1.25); EST GLOMERULAR FILTRATION RATE 86.2 ML/MIN; Potassium 3.9 mmol/L (3.5-5.1)
[2024-07-25 09:48] LABS: PSA, Free 1.07 ng/mL; Prostate Specific Ag 5.8 ng/mL (0.0-4.0)
--- NOTE | 2024-07-25 10:38 | PCM.NOTE ---
Date and Time: 07/25/24 1031 Subjective Assessment: 07/21/24 is a 78 year old male with pmhx of hyperlipidemia, HTN, type II DM, OA, parkinson's, and obesity. Pt presented via EMS to ER today for 10 day of feeling fatigued, body aches, and SOB. Pt reports "he feels like he has been hit by a truck." Pt reports he developed some chest tightness earlier this AM which is why he called an ambulance. Pt currently denies any cp, radiation of pain into shoulder, back or jaw. Pt reports the last time he felt this poorly was when he had COVID. Pt denies any nausea or vomiting, does endorse some mild diarrhea that started several days ago. FLU/COVID/ RSV negative. WBC 12.7, anion gap 16.5, Procal 0.102. CXR + for pneumonia, Doxycycline, duonebs, IVF started in ER. Will continue IV antibiotics and IVF. Pt had a temp of 99.1 in ER and tylenol gave. Pt has a wound or right buttock and will have PT eval for wound care. Wound culture ordered. Pics of wound taken in ER and in chart. + RLE edema, pt reports this started after a right foot surgery with Dr. Gallagher 1 1/2 months ago. He reports he has had RLE edema since. Venous duplex of RLE ordered. Legs elevated on pillow to decrease edema. Pt denies CP, abd pain, N/V/D. 07/22/24 Pt sitting up in the chair today. He is having increased pain, drainage, redness, and hardening of buttock around wound. Per nursing dressing over wound was changed 4- 5 times last night with significant amount of foul smelling drainage. He has excoriation of intergluteal cleft from drainage now. General surgery consulted. He had a temp this AM of 100.2. Narcotic pain medication added for increased pain. Continue IV antibiotics for pneumonia and wound. IV fluids stopped. He denies CP, abd pain, N/V/D. 07/23/24 Pt resting in the chair. He is scheduled for debridement of buttock wound by general surgery. He is currently NPO for this. Lovenox on hold. Continue IV antibiotics for wound and pneumonia. BCx2 negative. Pt denies any further concerns at this time and pain well controlled. Pt wanting [facility] at D/C. 07/24/24 Pt sitting up in chair today. He is POD #2 from debridement of buttock wound by general surgery. He feels his pain is well controlled at this time. Packing to be removed today and wet to dry dressing placed. Wound cultures pending. Hgb 9.3. BC x2 negative. He does have some sore throat pain from intubation yesterday during surgery- chloraseptic spray PRN started. Surgery started flagyl. Will continue ceftriaxone and stop azithromycin. He is RA 95% and denies SOB, lungs are clear. He denies CP, abd. pain, N/V/D. Surgery would like pt to go to rehab at d/c for wound care BID. Will discuss with case management Friday. 06/24/24 Pt resting in the chair. Pneumonia resolved, RA 95%. POD #3 from debridement of buttock wound by general surgery.He feels his pain is well controlled at this time. Wet to dry dressings BID- will need to continue OP. Continue IV antibiotics for wound. Will need to discuss with Case Management OP care plan of dressing changes. He denies CP, abd. pain, N/V/D. Will need to discuss with surgery when pt is ready for d/c. - Review of Systems Constitutional: No Fever, No Chills Eyes: No Symptoms Ears, Nose, & Throat: No Symptoms Respiratory: No Cough, No Short Of Breath Cardiac: No Chest Pain, No Edema, No Syncope Abdominal/Gastrointestinal: No Abdominal Pain, No Nausea, No Vomiting, No Diarrhea Genitourinary Symptoms: No Dysuria Musculoskeletal: No Back Pain, No Neck Pain Skin: Other (wound of right buttock and above anus with foul smelling drainage, redness, hardening of skin surrounding, excoration of gluteal clef), No Rash Neurological: No Dizziness, No Focal Weakness, No Sensory Changes Psychological: No Symptoms Endocrine: No Symptoms Hematologic/Lymphatic: No Symptoms Immunological/Allergic: No Symptoms Objective Exam General Appearance: no apparent distress, alert, obese Neurologic Exam: alert, oriented x 3, cooperative, normal mood/affect, nml cerebellar function, sensation nml, No motor deficits Skin Exam: normal color, warm, dry, other (wound of right buttock and above anus with foul smelling drainage, redness, hardening of skin surrounding, excoration of gluteal clef) Wound Assessment: Skin/Wound Assessment Wound/Incision Assessment Start: 07/22/24 04:06 Text: Status: Active Freq: Q8H Protocol: Document 07/25/24 02:00 TS (Rec: 07/25/24 02:05 TS [id number]) Wound/Incision Assessment Right Other Wound Assessment Shift Assessment Wound Type Pressure Ulcer Wound Stage Unstageable Dressing Status Changed Drainage Amount None General Appearance Reddened Surrounding Tissue [place] Topical Solution/Irrigant Saline Irrigant Packing Type Gauze Roll Primary Dressing Non-Adherent Gauze Pads Secondary Dressing ABD pad Comment Old dressing removed. Irrigate dwith saline and did wet to dry dressing covered with ABD and tape Right Buttock Wound Assessment Shift Assessment Wound Type Pressure Ulcer Wound Stage Unstageable Dressing Status Changed Drainage Amount None General Appearance Reddened Surrounding Tissue [place] Topical Solution/Irrigant Saline Irrigant Packing Type Gauze Roll Primary Dressing Non-Adherent Gauze Pads Secondary Dressing ABD pad Comment removed dresing. Cleansed with saline and performed wet to dry dressing changed with gauze dressing, covered with ABD and tape Wound Photo Photo Taken No Comment: previous photo in chart Eye Exam: PERRL, EOMI, eyes nml inspection Ears, Nose, Throat Exam: normal ENT inspection, pharynx normal, moist mucous membranes Neck Exam: normal inspection, non-tender, supple, full range of motion Respiratory Exam: normal breath sounds, lungs clear, No respiratory distress Cardiovascular Exam: regular rate/rhythm, normal heart sounds Gastrointestinal/Abdomen Exam: soft, No tenderness, No mass Extremity Exam: normal inspection, normal range of motion Back Exam: normal inspection, normal range of motion, No CVA tenderness, No vertebral tenderness Male Genitalia Exam: deferred Rectal Exam: deferred Objective Data Vital Signs: Vital Signs - 24 hr Temp Pulse Resp BP Pulse Ox 07/25/24 07:12 97.9 F 74 16 124/57 95 07/25/24 03:37 98.4 F 85 18 141/64 96 07/24/24 23:54 97.7 F 70 20 122/60 98 07/24/24 19:47 98.2 F 73 20 114/53 95 07/24/24 16:00 98 F 69 17 95/52 96 07/24/24 11:34 97.8 F 80 18 115/54 95 Pain Assessment - Last Documented Pain Intensity 6 Pain Scale Used 0-10 Pain Scale Intake and Output: Intake & Output 07/22/24 07/23/24 07/24/24 07/25/24 11:59 11:59 11:59 11:59 Intake Total 2493 5079 229 9292 Output Total 1275 250 100 300 Balance 1218 9308 384 4330 Weight 127.2 kg Lab Results: Lab Results-Last 24 Hours 07/23/24 07/24/24 07/24/24 Range/Units Unknown 11:10 16:11 WBC (4.23-9.07) x10^3/uL RBC (4.63-6.08) x10^6/uL Hgb (13.7-17.5) g/dL Hct (40.1-51.0) % MCV (79.0-92.2) fL MCH (25.7-32.2) pg MCHC (32.3-36.5) g/dL RDW (11.6-14.4) % Plt Count (163-337) x10^3/uL MPV (9.4-12.4) fL Sodium (135-145) mmol/L Potassium (3.5-5.1) mmol/L Chloride (98-107) mmol/L Carbon Dioxide (22-30) mmol/L Anion Gap (5-15) MEQ/L BUN (9-20) mg/dL Creatinine (0.66-1.25) mg/dL Estimated GFR ML/MIN Glucose (74-106) mg/dL POC Glucometer 145 H 204 H (74 to 106) mg/dL Calcium (8.4-10.2) mg/dL Prostate Specific Ag 5.8 H (0.0-4.0) ng/mL Free PSA 1.07 (N/A) ng/mL % Free PSA 18.4 (.) % 07/24/24 07/25/24 07/25/24 Range/Units 20:24 05:45 05:45 WBC 9.5 H (4.23-9.07) x10^3/uL RBC 3.32 L (4.63-6.08) x10^6/uL Hgb 9.3 L (13.7-17.5) g/dL Hct 29.0 L (40.1-51.0) % MCV 87.3 (79.0-92.2) fL MCH 28.0 (25.7-32.2) pg MCHC 32.1 L (32.3-36.5) g/dL RDW 13.4 (11.6-14.4) % Plt Count 242 (163-337) x10^3/uL MPV 9.2 L (9.4-12.4) fL Sodium 136 (135-145) mmol/L Potassium 3.9 (3.5-5.1) mmol/L Chloride 104 (98-107) mmol/L Carbon Dioxide 24 (22-30) mmol/L Anion Gap 12.1 (5-15) MEQ/L BUN 14 (9-20) mg/dL Creatinine 0.92 (0.66-1.25) mg/dL Estimated GFR 86.2 ML/MIN Glucose 148 H (74-106) mg/dL POC Glucometer 180 H (74 to 106) mg/dL Calcium 8.4 (8.4-10.2) mg/dL Prostate Specific Ag (0.0-4.0) ng/mL Free PSA (N/A) ng/mL % Free PSA (.) % 07/25/24 Range/Units 07:19 WBC (4.23-9.07) x10^3/uL RBC (4.63-6.08) x10^6/uL Hgb (13.7-17.5) g/dL Hct (40.1-51.0) % MCV (79.0-92.2) fL MCH (25.7-32.2) pg MCHC (32.3-36.5) g/dL RDW (11.6-14.4) % Plt Count (163-337) x10^3/uL MPV (9.4-12.4) fL Sodium (135-145) mmol/L Potassium (3.5-5.1) mmol/L Chloride (98-107) mmol/L Carbon Dioxide (22-30) mmol/L Anion Gap (5-15) MEQ/L BUN (9-20) mg/dL Creatinine (0.66-1.25) mg/dL Estimated GFR ML/MIN Glucose (74-106) mg/dL POC Glucometer 183 H (74 to 106) mg/dL Calcium (8.4-10.2) mg/dL Prostate Specific Ag (0.0-4.0) ng/mL Free PSA (N/A) ng/mL % Free PSA (.) % Assessment/Plan (1) Pneumonia Current Visit: Yes Status: Acute Qualifiers: Pneumonia type: due to unspecified organism Laterality: right Lung location: lower lobe of lung Qualified Code(s): J18.9 - Pneumonia, unspecified organism Code(s): J18.9 - PNEUMONIA, UNSPECIFIED ORGANISM (2) Pressure ulcer of buttock, unstageable Current Visit: Yes Status: Acute Qualifiers: Laterality: right Qualified Code(s): L89.310 - Pressure ulcer of right buttock, unstageable Code(s): L89.300 - PRESSURE ULCER OF UNSPECIFIED BUTTOCK, UNSTAGEABLE (3) Dehydration Current Visit: Yes Status: Acute Code(s): E86.0 - DEHYDRATION (4) Edema of right lower extremity Current Visit: Yes Status: Acute Code(s): R60.0 - LOCALIZED EDEMA (5) Diarrhea Current Visit: Yes Status: Acute Code(s): R19.7 - DIARRHEA, UNSPECIFIED (6) HTN (hypertension) Current Visit: Yes Status: Chronic Code(s): I10 - ESSENTIAL (PRIMARY) HYPERTENSION (7) Type II diabetes mellitus Current Visit: Yes Status: Chronic Qualifiers: Diabetes mellitus long distance billing operator insulin use: without long distance billing operator use (8) Hyperlipidemia Current Visit: Yes Status: Chronic Code(s): E78.5 - HYPERLIPIDEMIA, UNSPECIFIED (9) Obesity (BMI 30-39.9) Current Visit: Yes Status: Chronic Code(s): E66.9 - OBESITY, UNSPECIFIED (10) Parkinson disease Current Visit: Yes Status: Chronic Code(s): G20.A1 - PARKINSON'S DIS W/O DYSKINESIA, W/O MENTION OF FLUCTUATIONS (11) Enlarged prostate Current Visit: Yes Status: Chronic Code(s): N40.0 - BENIGN PROSTATIC HYPERPLASIA WITHOUT LOWER URINRY TRACT SYMP (12) Sore throat Current Visit: Yes Status: Acute Assessment & Plan: (1) Pneumonia Current Visit: Yes Status: Acute Qualifiers: Pneumonia type: due to unspecified organism Laterality: right Lung location: lower lobe of lung Qualified Code(s): J18.9 - Pneumonia, unspecified organism Assessment & Plan: - CXR reviewed - CBC, CMP reviewed - procal elevated - WBC 12.7 - IV antibiotics - RA 98% - Flu/COVID/RSV negative - PT eval - tylenol for fever - BC x2 - tele 07/22 - CBC, CMP reviewed - WBC 12.7 - Continue IV antibiotics - BC x2 pending 07/23 - BCX2 negative - WBC 12.2 - Continue IV antibiotics - CBC, CMP reviewed - RA 97% 07/24 - Azithromycin stopped, continue ceftriaxone - CBC, CMP reviewed - RA 95% - resolved Code(s): J18.9 - PNEUMONIA, UNSPECIFIED ORGANISM (2) Pressure ulcer of buttock, unstageable Current Visit: Yes Status: Acute Qualifiers: Laterality: right Qualified Code(s): L89.310 - Pressure ulcer of right buttock, unstageable Assessment & Plan: - pics in chart per nursing staff in ER - Pt for wound care - Wound culture - Santyl Topical daily per PT 07/22 - Increased drainage from wound overnight - General surgery consult - IV antibiotics - CT abd/ pelvis w & w/o contrast- reviewed 07/23 - Wound debridement today with GS- Cellulitis, hital hernia, enlarged prostate with macro calcifications- benign, diverticulosis - Lovenox held - IV antibiotics - Pics in chart by nursing - Post op day #1 - Flagyl started by GS - Wound cultures done in OR- pending 07/24 - Post op day #2 - Per GS: remove packing tomorrow around noon, use normal saline wet to dry dressing and sitz baths after BM as needed pt needs wound care twice daily, short term halfway stay would be best moving forward, he will call to check on patient. 07/25 - Post op day #3 from Wound debridement - Continue IV antibiotics - CBC, CMP reviewed - Discuss OP plan with case management tomorrow - Discuss with GS if OK to d/c tomorrow or when Code(s): L89.300 - PRESSURE ULCER OF UNSPECIFIED BUTTOCK, UNSTAGEABLE (3) Dehydration Current Visit: Yes Status: Acute Assessment & Plan: - anion gap 16.5 - IV fluids started in ER- Continue 07/22 - resolved - Stop IVF Code(s): E86.0 - DEHYDRATION (4) Edema of right lower extremity Current Visit: Yes Status: Acute Assessment & Plan: - S/P R foot surgery 1 1/2 months ago with podiatry - Dr. Gallagher - Venous duplex RLE- negative - TEDS, elevate legs Code(s): R60.0 - LOCALIZED EDEMA (5) Diarrhea Current Visit: Yes Status: Acute Assessment & Plan: - C-diff and stool culture pending - probiotics 07/24 - no diarrhea since admission Code(s): R19.7 - DIARRHEA, UNSPECIFIED (6) HTN (hypertension) Current Visit: Yes Status: Chronic Assessment & Plan: - BP stable - continue home meds Code(s): I10 - ESSENTIAL (PRIMARY) HYPERTENSION (7) Type II diabetes mellitus Current Visit: Yes Status: Chronic Qualifiers: Diabetes mellitus long distance billing operator insulin use: without senior care use Assessment & Plan: - Continue metformin - accuchecks ac/hs - humalog low dose s/s - carb consistent diet - A1C 7.11- 05/24/24- controlled (8) Hyperlipidemia Current Visit: Yes Status: Chronic Assessment & Plan: - continue home med Code(s): E78.5 - HYPERLIPIDEMIA, UNSPECIFIED (9) Obesity (BMI 30-39.9) Current Visit: Yes Status: Chronic Assessment & Plan: - advised ADA diet and exercise control Code(s): E66.9 - OBESITY, UNSPECIFIED (10) Parkinson disease Current Visit: Yes Status: Chronic Assessment & Plan: - Continue home meds Code(s): G20.A1 - PARKINSON'S DIS W/O DYSKINESIA, W/O MENTION OF FLUCTUATIONS (11) Enlarged prostate Current Visit: Yes Status: Chronic Assessment & Plan: - PSA- 5.8- f/u with PCP OP- consider referral to urology Code(s): N40.0 - BENIGN PROSTATIC HYPERPLASIA WITHOUT LOWER URINRY TRACT SYMP (12) Sore throat Current Visit: Yes Status: Acute Assessment & Plan: - Chloraseptic spray PRN - From post op intubation from surgery yesterday VTE: Lovenox PPI: Protonix Next of KIN: Callie Talavera [phone] D/C plan: 1-2 days Code status: full Code(s): J02.9 - ACUTE PHARYNGITIS, UNSPECIFIED Code(s): J02.9 - ACUTE PHARYNGITIS, UNSPECIFIED
--- NOTE | 2024-07-25 18:28 | CONS ---
HISTORY OF PRESENT ILLNESS: A 78-year-old gentleman who was admitted a couple of days ago. He got admitted for pneumonia, chest pain, and weakness, but he has had draining sores and wounds that tunnel on his buttock/perirectal area for at least a couple of weeks. Apparently, they did not notify the surgeon installation superintendent when he was admitted at the time or keep him n.p.o. There was a consult done yesterday when Dr. Mckeon's nurse practitioner, Carine, was down here, who saw and evaluated the patient. It was felt that he would benefit from OR debridement and drainage. As he was not n.p.o. yesterday, he was added for today. Discussed with the patient. [place] these needed to be opened up wider and debride any devitalized tissue as needed. Risk of ongoing bleeding or infection possibly requiring other procedures, risk of development of [id number] possibly requiring other procedures, general risk of anesthesia, DVT, aches and pains, but not limited to the fact that he would need continued packing even afterwards. He is agreeable to as above debridement and drainage in perirectal/buttock area in OR when OR time available. Consent was obtained, but not limited to. PAST MEDICAL HISTORY: He has had pneumonia. He has had hyperlipidemia. He has had diabetes. He has some Parkinson's and hypertension. MEDICATIONS: Lisinopril, atorvastatin, ezetimibe, metformin, carbidopa/levodopa, metoprolol. He did get some Lovenox yesterday but they held his blood thinners today. ALLERGIES: No known drug allergies. 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 SOCIAL HISTORY: No smoking. No alcohol abuse currently. FAMILY HISTORY: Negative in regard to this problem. REVIEW OF SYSTEMS: Twelve systems reviewed. Per admission assessment and the history and physical. Again, he was admitted for pneumonia and he has this chronic wound that we will open wider and debride. He will need packing perioperatively. Risk of development of [id number] possibly requiring other procedures or referral to tertiary center, but not limited to. He is agreeable with the plan. PHYSICAL EXAMINATION: GENERAL: Chronically ill gentleman. HEENT: Sclerae nonicteric. CHEST: Equal excursion, nonlabored breathing. CARDIOVASCULAR: Regular rate and rhythm. ABDOMEN: Soft, nondistended. He is overweight. EXTREMITIES: No cyanosis. SKIN: He has a foul-smelling wound in the buttock and perirectal area. PLAN: Needs debridement and drainage. General risk of anesthesia, DVT, PE, pneumonia, aches, and pains, not limited to, possible need for other procedures.
--- NOTE | 2024-07-25 18:30 | OP ---
SURGERY DATE/TIME: 07/23/2024 PREOPERATIVE DIAGNOSIS: History of diabetes, multiple medical problems, pneumonia, nonhealing wound perirectal and right buttock area in need of debridement of necrotizing soft tissue infection. POSTOPERATIVE DIAGNOSIS: History of diabetes, multiple medical problems, pneumonia, nonhealing wound perirectal and right buttock area in need of debridement of necrotizing soft tissue infection. PROCEDURE: Excisional debridement of 13 to 14 cm necrotizing soft tissue infection, skin, and subcutaneous fat perirectal and right buttock area with irrigation, culture, and packing. SURGEON: Truman Reese MD. ANESTHESIA: General. ESTIMATED BLOOD LOSS: Less than 100 mL. INDICATIONS: As above. Consent obtained. DESCRIPTION OF PROCEDURE AND FINDINGS: The patient was taken to the operating room where general anesthesia was induced. He was placed in lithotomy position. He as prepped and draped in usual sterile fashion. He had a tunneling tract from the perineal/perirectal area toward the buttock area, had some foul necrotic-smelling tissue. He was prepped and draped in usual sterile fashion in lithotomy position and I started debridement of this wound. The wound went from the perirectal area out toward the right buttock. Most of the necrotic tissue was out toward the buttock area. There was a bridge of viable tissue and skin overlying more closer to the perirectal area to the buttock area. Excisional debridement of the necrotic tissue was taken down to viable tissue. He did have a good supply on the skin and dermis area, some pulsatile vessels around this controlled with some pinpoint cautery and a 3-0 Monocryl suture. Lidocaine 1% with epinephrine was injected around the periphery for added pain control. A small piece of Surgicel was placed in the base of the wound. Again, this was a 13 to 14 cm wound. It was then packed with 1-inch iodoform gauze packing, a sterile dressing. There were no immediate complications. There was no family to discuss findings with this. Starting tomorrow we can remove packing and repack with normal saline, wet to dry, on a daily basis and p.r.n. We will call and check on him tomorrow and reevaluate him the first of the week. He is going to need long-term wound therapy, sitz baths once or twice daily.
[2024-07-26 05:00] LABS: Hemoglobin 9.4 g/dL (13.7-17.5); Mean Cell Volume 88.4 fL (79.0-92.2); Mean Corpuscular Hemoglobin 28.7 pg (25.7-32.2); Mean Corpuscular Hgb Concent. 32.4 g/dL (32.3-36.5); Platelet Count 262 x10^3/uL (163-337); Red Blood Count 3.28 x10^6/uL (4.63-6.08); Red Cell Distribution Width 13.4 % (11.6-14.4); White Blood Count 6.9 x10^3/uL (4.23-9.07)
--- NOTE | 2024-07-26 05:15 | PCM.NOTE ---
Date and Time: 07/26/24 0511 Subjective Assessment: HPI: is a 78 year old male with pmhx of hyperlipidemia, HTN, type II DM, OA, parkinson's, and obesity admitted 07/21/24 initially with pneumonia after presenting to ED with chest pressure and dyspnea. CXR demonstrating new mild right infrahilar infiltrate. During his hospital course patient was found to have a necrotic wound to his right buttock with eschar and tunneling above the anus on exam. CT abdomen and pelvis showing new emphysematous cellulitis involving the right buttock. No walled off fluid collection/abscess. Surgery consulted and I&D performed on 07/23/24. IP treatment with abx coverage for his pneumonia and wound with Flagyl and ceftriaxone. Surgery would like pt to go to rehab at d/c for wound care. Wound cultures pending. Objective Exam Wound Assessment: Skin/Wound Assessment Wound/Incision Assessment Start: 07/22/24 04:06 Text: Status: Active Freq: Q8H Protocol: Document 07/26/24 02:00 LB (Rec: 07/26/24 04:06 LB [id number]) Wound/Incision Assessment Right Other Wound Assessment Shift Assessment Wound Type Pressure Ulcer Dressing Status Dry & Intact Comment dressing in place Right Buttock Wound Assessment Shift Assessment Wound Type Pressure Ulcer Wound Stage Unstageable Comment dressing in place Wound Photo Photo Taken No Objective Data Vital Signs: Vital Signs - 24 hr Temp Pulse Resp BP Pulse Ox 07/26/24 03:44 97.9 F 73 19 127/85 97 07/26/24 00:00 97.7 F 75 19 110/50 98 07/25/24 19:19 97.7 F 74 20 113/53 98 07/25/24 16:00 97.8 F 81 16 143/65 97 07/25/24 11:34 97.7 F 75 16 119/60 100 07/25/24 07:12 97.9 F 74 16 124/57 95 Pain Assessment - Last Documented Pain Intensity 7 Pain Scale Used 0-10 Pain Scale Intake and Output: Intake & Output 07/23/24 07/24/24 07/25/24 07/26/24 11:59 11:59 11:59 11:59 Intake Total 3382 418 4152 1720 Output Total 250 100 750 600 Balance 1477 914 686 9802 Weight 127.2 kg Lab Results: Lab Results-Last 24 Hours 07/23/24 07/25/24 07/25/24 Range/Units Unknown 05:45 05:45 WBC 9.5 H (4.23-9.07) x10^3/uL RBC 3.32 L (4.63-6.08) x10^6/uL Hgb 9.3 L (13.7-17.5) g/dL Hct 29.0 L (40.1-51.0) % MCV 87.3 (79.0-92.2) fL MCH 28.0 (25.7-32.2) pg MCHC 32.1 L (32.3-36.5) g/dL RDW 13.4 (11.6-14.4) % Plt Count 242 (163-337) x10^3/uL MPV 9.2 L (9.4-12.4) fL Sodium 136 (135-145) mmol/L Potassium 3.9 (3.5-5.1) mmol/L Chloride 104 (98-107) mmol/L Carbon Dioxide 24 (22-30) mmol/L Anion Gap 12.1 (5-15) MEQ/L BUN 14 (9-20) mg/dL Creatinine 0.92 (0.66-1.25) mg/dL Estimated GFR 86.2 ML/MIN Glucose 148 H (74-106) mg/dL POC Glucometer (74 to 106) mg/dL Calcium 8.4 (8.4-10.2) mg/dL Prostate Specific Ag 5.8 H (0.0-4.0) ng/mL Free PSA 1.07 (N/A) ng/mL % Free PSA 18.4 (.) % 07/25/24 07/25/24 07/25/24 Range/Units 07:19 11:27 16:23 WBC (4.23-9.07) x10^3/uL RBC (4.63-6.08) x10^6/uL Hgb (13.7-17.5) g/dL Hct (40.1-51.0) % MCV (79.0-92.2) fL MCH (25.7-32.2) pg MCHC (32.3-36.5) g/dL RDW (11.6-14.4) % Plt Count (163-337) x10^3/uL MPV (9.4-12.4) fL Sodium (135-145) mmol/L Potassium (3.5-5.1) mmol/L Chloride (98-107) mmol/L Carbon Dioxide (22-30) mmol/L Anion Gap (5-15) MEQ/L BUN (9-20) mg/dL Creatinine (0.66-1.25) mg/dL Estimated GFR ML/MIN Glucose (74-106) mg/dL POC Glucometer 183 H 228 H 127 H (74 to 106) mg/dL Calcium (8.4-10.2) mg/dL Prostate Specific Ag (0.0-4.0) ng/mL Free PSA (N/A) ng/mL % Free PSA (.) % 07/25/24 07/26/24 Range/Units 20:45 04:56 WBC 6.9 (4.23-9.07) x10^3/uL RBC 3.28 L (4.63-6.08) x10^6/uL Hgb 9.4 L (13.7-17.5) g/dL Hct 29.0 L (40.1-51.0) % MCV 88.4 (79.0-92.2) fL MCH 28.7 (25.7-32.2) pg MCHC 32.4 (32.3-36.5) g/dL RDW 13.4 (11.6-14.4) % Plt Count 262 (163-337) x10^3/uL MPV 9.0 L (9.4-12.4) fL Sodium (135-145) mmol/L Potassium (3.5-5.1) mmol/L Chloride (98-107) mmol/L Carbon Dioxide (22-30) mmol/L Anion Gap (5-15) MEQ/L BUN (9-20) mg/dL Creatinine (0.66-1.25) mg/dL Estimated GFR ML/MIN Glucose (74-106) mg/dL POC Glucometer 184 H (74 to 106) mg/dL Calcium (8.4-10.2) mg/dL Prostate Specific Ag (0.0-4.0) ng/mL Free PSA (N/A) ng/mL % Free PSA (.) % Assessment/Plan (1) Pneumonia Current Visit: Yes Status: Acute Qualifiers: Pneumonia type: due to unspecified organism Laterality: right Lung location: lower lobe of lung Qualified Code(s): J18.9 - Pneumonia, unspecified organism Assessment & Plan: - CXR reviewed demonstrating new mild right infrahilar infiltrate - procal reviewd from 07/21/24 - BCX2 reviewed and NGTD -Antimicrobial history reviewed: -Azithromycin - 07/24/24 -Ceftriaxone 07/21/24- current - Flu/COVID/RSV negative -Supplemental oxygen as needed to maintain goal spo2 > 92% - currently on RA (baseline) Code(s): J18.9 - PNEUMONIA, UNSPECIFIED ORGANISM (2) Pressure ulcer of buttock, unstageable Current Visit: Yes Status: Acute Qualifiers: Laterality: right Qualified Code(s): L89.310 - Pressure ulcer of right buttock, unstageable Assessment & Plan: -CT abdomen and pelvis reviewed showing new emphysematous cellulitis involving the right buttock. No walled off fluid collection/abscess -General surgery consulted, note reviewed, I&D performed 07/23/24 -Wound cultures pending -Flagyl started 07/23/24 -Wound care per surgery - normal saline wet to dry dressing and sitz baths after BM as needed pt needs wound care twice daily -recommends d/c to rehab Code(s): L89.300 - PRESSURE ULCER OF UNSPECIFIED BUTTOCK, UNSTAGEABLE (3) Dehydration Current Visit: Yes Status: Acute Assessment & Plan: -2/2 to diarrhea- none since admission -resolved -stool studies pending collection Code(s): E86.0 - DEHYDRATION (4) Diarrhea Current Visit: Yes Status: Acute Assessment & Plan: -see dehydration Code(s): R19.7 - DIARRHEA, UNSPECIFIED (5) Edema of right lower extremity Current Visit: Yes Status: Acute Assessment & Plan: - S/P R foot surgery 1 1/2 months ago with podiatry - Dr. Gallagher - Venous duplex RLE- negative - TEDS, elevate legs Code(s): R60.0 - LOCALIZED EDEMA (6) Sore throat Current Visit: Yes Status: Acute Assessment & Plan: - Chloraseptic spray PRN Code(s): J02.9 - ACUTE PHARYNGITIS, UNSPECIFIED (7) Enlarged prostate Current Visit: Yes Status: Chronic Assessment & Plan: - PSA- pending Code(s): N40.0 - BENIGN PROSTATIC HYPERPLASIA WITHOUT LOWER URINRY TRACT SYMP (8) HTN (hypertension) Current Visit: Yes Status: Chronic Assessment & Plan: - BP stable continue home meds Code(s): I10 - ESSENTIAL (PRIMARY) HYPERTENSION (9) Hyperlipidemia Current Visit: Yes Status: Chronic Assessment & Plan: -Continue statin Code(s): E78.5 - HYPERLIPIDEMIA, UNSPECIFIED (10) Obesity (BMI 30-39.9) Current Visit: Yes Status: Chronic Assessment & Plan: advised ADA diet and exercise control Code(s): E66.9 - OBESITY, UNSPECIFIED (11) Parkinson disease Current Visit: Yes Status: Chronic Assessment & Plan: - Continue home meds Code(s): G20.A1 - PARKINSON'S DIS W/O DYSKINESIA, W/O MENTION OF FLUCTUATIONS (12) Type II diabetes mellitus Current Visit: Yes Status: Chronic Qualifiers: 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
[2024-07-26 05:20] LABS: ALBUMIN 3.1 g/dL (3.5-5.0); ANION GAP 11.6 MEQ/L (5-15); BILIRUBIN,TOTAL 0.5 mg/dL (0.2-1.3); Calcium 8.6 mg/dL (8.4-10.2); Creatinine 1 0.89 mg/dL (0.66-1.25); EST GLOMERULAR FILTRATION RATE 88.8 ML/MIN; Potassium 4.1 mmol/L (3.5-5.1); Total Protein 6.4 g/dL (6.3-8.2)
--- NOTE | 2024-07-26 11:30 | PCM.DS ---
Discharge Summary Date of Admission: 07/22/24 12:20 Date of Discharge: 07/26/24 Admitting Physician: RHETT DEVRIES MD Consults: Consults on Case 07/22/24 09:17 Consult Surgery ROUTINE Primary Care Provider: LENA DUGGAN VARUN Allergies Allergies No Known Drug Allergies Allergy (Verified 07/21/24 07:00) Hospital Summary - Hospital Course Hospital Course: HPI: is a 78 year old male with pmhx of hyperlipidemia, HTN, type II DM, OA, parkinson's, and obesity admitted 07/21/24 initially with pneumonia after presenting to ED with chest pressure and dyspnea. CXR demonstrating new mild right infrahilar infiltrate. During his hospital course patient was found to have a necrotic wound to his right buttock with eschar and tunneling above the anus on exam. CT abdomen and pelvis showing new emphysematous cellulitis involving the right buttock. No walled off fluid collection/abscess. Surgery consulted and I&D performed on 07/23/24. IP treatment with abx coverage for his pneumonia and wound with Flagyl and ceftriaxone. Surgery would like pt to go to rehab at d/c for wound care but patient refuses- he would like HHC and OP wound clinic. Wound cultures pending. Dyspnea and cough improved and at baseline RA. Surgery has cleared patient for discharge. We will set up HHC and OP wound clinic/ PT to evaluate for dressing changes and provide recommendations prior to discharge. Will continue Keflex and Flagyl. Patient agreeable to plan and requesting discharge home. Discharge Note New Diagnosis: Pneumonia/right buttock wound New Medications:Keflex and Flagyl Follow Up: Wound clinic/Surgery/PCP Results pending: Final wound culture Latest Assessment & Plan (1) Pneumonia Current Visit: Yes Status: Acute Qualifiers: Pneumonia type: due to unspecified organism Laterality: right Lung location: lower lobe of lung Qualified Code(s): J18.9 - Pneumonia, unspecified organism Assessment & Plan: - CXR reviewed demonstrating new mild right infrahilar infiltrate - procal reviewd from 07/21/24 - BCX2 reviewed and NGTD -Antimicrobial history reviewed: -Azithromycin - 07/24/24 -Ceftriaxone 07/21/24- current - Flu/COVID/RSV negative -Supplemental oxygen as needed to maintain goal spo2 > 92% - currently on RA (baseline) Code(s): J18.9 - PNEUMONIA, UNSPECIFIED ORGANISM (2) Pressure ulcer of buttock, unstageable Current Visit: Yes Status: Acute Qualifiers: Laterality: right Qualified Code(s): L89.310 - Pressure ulcer of right buttock, unstageable Assessment & Plan: -CT abdomen and pelvis reviewed showing new emphysematous cellulitis involving the right buttock. No walled off fluid collection/abscess -General surgery consulted, note reviewed, I&D performed 07/23/24 -Wound cultures pending -Flagyl started 07/23/24 -Wound care per surgery - normal saline wet to dry dressing and sitz baths after BM as needed pt needs wound care twice daily -recommends d/c to rehab Code(s): L89.300 - PRESSURE ULCER OF UNSPECIFIED BUTTOCK, UNSTAGEABLE (3) Dehydration Current Visit: Yes Status: Acute Assessment & Plan: -2/2 to diarrhea- none since admission -resolved -stool studies pending collection Code(s): E86.0 - DEHYDRATION (4) Diarrhea Current Visit: Yes Status: Acute Assessment & Plan: -see dehydration Code(s): R19.7 - DIARRHEA, UNSPECIFIED (5) Edema of right lower extremity Current Visit: Yes Status: Acute Assessment & Plan: - S/P R foot surgery 1 1/2 months ago with podiatry - Dr. Gallagher - Venous duplex RLE- negative - TEDS, elevate legs Code(s): R60.0 - LOCALIZED EDEMA (6) Sore throat Current Visit: Yes Status: Acute Assessment & Plan: - Chloraseptic spray PRN Code(s): J02.9 - ACUTE PHARYNGITIS, UNSPECIFIED (7) Enlarged prostate Current Visit: Yes Status: Chronic Assessment & Plan: - PSA- pending Code(s): N40.0 - BENIGN PROSTATIC HYPERPLASIA WITHOUT LOWER URINRY TRACT SYMP (8) HTN (hypertension) Current Visit: Yes Status: Chronic Assessment & Plan: - BP stable continue home meds Code(s): I10 - ESSENTIAL (PRIMARY) HYPERTENSION (9) Hyperlipidemia Current Visit: Yes Status: Chronic Assessment & Plan: -Continue statin Code(s): E78.5 - HYPERLIPIDEMIA, UNSPECIFIED (10) Obesity (BMI 30-39.9) Current Visit: Yes Status: Chronic Assessment & Plan: advised ADA diet and exercise control Code(s): E66.9 - OBESITY, UNSPECIFIED (11) Parkinson disease Current Visit: Yes Status: Chronic Assessment & Plan: - Continue home meds Code(s): G20.A1 - PARKINSON'S DIS W/O DYSKINESIA, W/O MENTION OF FLUCTUATIONS (12) Type II diabetes mellitus Current Visit: Yes Status: Chronic Qualifiers: Diabetes mellitus chcf insulin use: without chcf use Assessment & Plan: - accuchecks ac/hs - humalog low dose s/s - carb consistent diet - A1C 7.11- 05/24/24 I spent 35 minutes [id number] with the patient on the day of discharge performing discharge exam, discussing hospital stay and discharge instructions with patient and caregivers, preparation of discharge records, prescriptions & referral forms and addressing any questions/concerns the patient had as documented above. - Vitals & Intake/Output Vital Signs: Vital Signs Temperature 97.9 F 07/26/24 07:21 Pulse Rate 70 07/26/24 07:21 Respiratory Rate 18 07/26/24 07:21 Blood Pressure 146/67 07/26/24 07:21 O2 Sat by Pulse Oximetry 96 07/26/24 07:21 Intake & Output: Intake & Output 07/23/24 07/24/24 07/25/24 07/26/24 11:59 11:59 11:59 11:59 Intake Total 8504 034 9228 1960 Output Total 250 100 750 800 Balance 1477 036 482 9496 Weight 127.2 kg - Lab Result Diagrams: 07/26/24 04:56 07/26/24 04:56 Lab Results-Last 24 Hrs: Lab Results-Last 24 Hours 07/25/24 07/25/24 07/25/24 Range/Units 11:27 16:23 20:45 WBC (4.23-9.07) x10^3/uL RBC (4.63-6.08) x10^6/uL Hgb (13.7-17.5) g/dL Hct (40.1-51.0) % MCV (79.0-92.2) fL MCH (25.7-32.2) pg MCHC (32.3-36.5) g/dL RDW (11.6-14.4) % Plt Count (163-337) x10^3/uL MPV (9.4-12.4) fL Sodium (135-145) mmol/L Potassium (3.5-5.1) mmol/L Chloride (98-107) mmol/L Carbon Dioxide (22-30) mmol/L Anion Gap (5-15) MEQ/L BUN (9-20) mg/dL Creatinine (0.66-1.25) mg/dL Estimated GFR ML/MIN Glucose (74-106) mg/dL POC Glucometer 228 H 127 H 184 H (74 to 106) mg/dL Calcium (8.4-10.2) mg/dL Total Bilirubin (0.2-1.3) mg/dL AST (17-59) U/L ALT (0-50) U/L Alkaline Phosphatase (38-126) U/L Serum Total Protein (6.3-8.2) g/dL Albumin (3.5-5.0) g/dL 07/26/24 07/26/24 07/26/24 Range/Units 04:56 04:56 06:47 WBC 6.9 (4.23-9.07) x10^3/uL RBC 3.28 L (4.63-6.08) x10^6/uL Hgb 9.4 L (13.7-17.5) g/dL Hct 29.0 L (40.1-51.0) % MCV 88.4 (79.0-92.2) fL MCH 28.7 (25.7-32.2) pg MCHC 32.4 (32.3-36.5) g/dL RDW 13.4 (11.6-14.4) % Plt Count 262 (163-337) x10^3/uL MPV 9.0 L (9.4-12.4) fL Sodium 138 (135-145) mmol/L Potassium 4.1 (3.5-5.1) mmol/L Chloride 104 (98-107) mmol/L Carbon Dioxide 26 (22-30) mmol/L Anion Gap 11.6 (5-15) MEQ/L BUN 14 (9-20) mg/dL Creatinine 0.89 (0.66-1.25) mg/dL Estimated GFR 88.8 ML/MIN Glucose 150 H (74-106) mg/dL POC Glucometer 149 H (74 to 106) mg/dL Calcium 8.6 (8.4-10.2) mg/dL Total Bilirubin 0.50 (0.2-1.3) mg/dL AST 43 (17-59) U/L ALT 24 (0-50) U/L Alkaline Phosphatase 131 H (38-126) U/L Serum Total Protein 6.4 (6.3-8.2) g/dL Albumin 3.1 L (3.5-5.0) g/dL Micro Results-Entire Visit: Microbiology 07/21/24 07:44 Blood Culture - Final Blood 07/21/24 07:40 Blood Culture - Final Blood 07/21/24 11:04 Wound Culture - Final Buttock - Right ORGANISMS ISOLATED ARE CONSISTENT WITH NORMAL SKIN STAR MODERATE GROWTH, NO PREDOMINANT ORGANISM 07/23/24 17:30 Anaerobic Culture Result 1 - Final Perirectal Not Reportable Anaerobic Culture Result 2 - Final Not Reportable Anaerobic Culture Result 3 - Final Not Reportable Anaerobic Culture Result 4 - Final Not Reportable Antimicrobic Susceptibility - Final Not Reportable Aerobic Culture Result 1 - Final Not Reportable Aerobic Culture Result 2 - Final Not Reportable - Final Not Reportable Aerobic Culture Result 4 - Final Not Reportable Organism Susceptibility - Final Not Reportable 07/21/24 Unknown Stool Culture Result 1 - Final Stool Not Reportable Stool Culture Result 2 - Final Not Reportable Stool Culture Result 3 - Final Not Reportable Stool Culture Result 4 - Final Not Reportable Stool Culture Organism Suscept - Final Not Reportable Campylobacter Result 1 - Final Not Reportable Campylobacter Result 2 - Final Not Reportable Campylobactor Result 3 - Final Not Reportable Campylobacter Result 4 - Final Not Reportable Campylobactor Susceptibility - Final Not Reportable Accuchecks Date 07/26/24 Date 07/25/24 Date 07/25/24 Date 07/25/24 Time 21:00 Time 16:45 Time 11:34 - Procedures and Test Procedures and Tests throughout Hospitalization: Therapy Orders & Screens 07/21/24 07:29 Respiratory Therapy Assessment DAILY Comment: 07/21/24 09:58 PT Eval & Treat ( Order) ONCE Reason for Eval:: wekness, SOB Diagnosis: pneumonia 07/21/24 10:05 PT Eval & Treat ( Order) ONCE Reason for Eval:: wound care ulcer of buttock Diagnosis: pneumonia 07/21/24 10:51 Respiratory Therapy Assessment DAILY Comment: Diagnosis: pneumonia 07/26/24 10:28 PT Eval & Treat (MD Order) ONCE Reason for Eval:: WOUND CARE RECOMMENDATIONS Diagnosis: INFECTED WOUND PRESSURE ULCER R BUTTOCK, PNEUMONIA Discharge Exam General Appearance: no apparent distress Neurologic Exam: alert, oriented x 3, cooperative Eye Exam: PERRL Ears, Nose, Throat Exam: normal ENT inspection Neck Exam: normal inspection Respiratory Exam: normal breath sounds, lungs clear Cardiovascular Exam: regular rate/rhythm, normal heart sounds Gastrointestinal/Abdomen Exam: soft, normal bowel sounds Rectal Exam: other (wound with dressing to right buttock) Back Exam: normal inspection Extremity Exam: pedal edema, swelling (BLE) Skin Exam: normal color Wound Assessment: Skin/Wound Assessment Wound/Incision Assessment Start: 07/22/24 04:06 Text: Status: Active Freq: Q8H Protocol: Document 07/26/24 02:00 LB (Rec: 07/26/24 04:06 LB [id number]) Wound/Incision Assessment Right Other Wound Assessment Shift Assessment Wound Type Pressure Ulcer Dressing Status Dry & Intact Comment dressing in place Right Buttock Wound Assessment Shift Assessment Wound Type Pressure Ulcer Wound Stage Unstageable Comment dressing in place Wound Photo Photo Taken No Final Diagnosis/Problem List - Final Discharge Diagnosis/Problem (1) Pneumonia Current Visit: Yes Status: Acute Code(s): J18.9 - PNEUMONIA, UNSPECIFIED ORGANISM (2) Pressure ulcer of buttock, unstageable Current Visit: Yes Status: Acute Code(s): L89.300 - PRESSURE ULCER OF UNSPECIFIED BUTTOCK, UNSTAGEABLE (3) Dehydration Current Visit: Yes Status: Resolved Code(s): E86.0 - DEHYDRATION (4) Diarrhea Current Visit: Yes Status: Resolved Code(s): R19.7 - DIARRHEA, UNSPECIFIED (5) Edema of right lower extremity Current Visit: Yes Status: Chronic Code(s): R60.0 - LOCALIZED EDEMA (6) Sore throat Current Visit: Yes Status: Resolved Code(s): J02.9 - ACUTE PHARYNGITIS, UNSPECIFIED (7) Enlarged prostate Current Visit: Yes Status: Chronic Code(s): N40.0 - BENIGN PROSTATIC HYPERPLASIA WITHOUT LOWER URINRY TRACT SYMP (8) HTN (hypertension) Current Visit: Yes Status: Chronic Code(s): I10 - ESSENTIAL (PRIMARY) HYPERTENSION (9) Hyperlipidemia Current Visit: Yes Status: Chronic Code(s): E78.5 - HYPERLIPIDEMIA, UNSPECIFIED (10) Obesity (BMI 30-39.9) Current Visit: Yes Status: Chronic Code(s): E66.9 - OBESITY, UNSPECIFIED (11) Parkinson disease Current Visit: Yes Status: Chronic Code(s): G20.A1 - PARKINSON'S DIS W/O DYSKINESIA, W/O MENTION OF FLUCTUATIONS (12) Type II diabetes mellitus Current Visit: Yes Status: Chronic - Discharge Discharge Date: 07/26/24 (Wound clinic) Disposition: HOME HEALTH SERVICE Condition: Stable Prescriptions: New Metronidazole 500 mg [Flagyl 500 MG] 500 mg PO BID 7 Days #14 tablet Cephalexin Mh 500 mg [Keflex 500 mg] 500 mg PO Q6H 7 Days #28 cap Continue lisinopriL [Zestril] 40 mg PO DAILY Metformin HCl 500 mg [Glucophage 500 MG] 500 mg PO DAILY Ezetimibe 10 mg PO DAILY Atorvastatin Calcium [Lipitor] 80 mg PO DAILY Metoprolol Tartrate 25 mg [Lopressor 25MG Tab] 50 mg PO DAILY Carbidopa/Levodopa [Carbidopa-Levodopa 25-100 Tab] 2 tab PO 0600 Carbidopa/Levodopa 25/100 mg [Sinemet 25/100 MG] 1 tab PO 1200 Follow up with: LENA DUGGAN MD [Primary Care Provider] - 08/04/24 2:15 pm MAHAD VILLASEÑOR [COURTESY STAFF] - 08/09/24 8:40 am ([place] Office)
[2024-07-26 12:10] VITALS: RESP 20
[2024-07-26 17:01] VITALS: BP 127/61; PULSE 77; TEMP 98; O2SAT 95
== END 2024-07-26 18:00 | disposition swing bed (61) | DRG 168 ==
LOC: ED 06:56 → MED SURG 09:29 → OBSVTOIN 07-22 12:20
PROVIDERS: ADMIT Internal Medicine; ATTEND Internal Medicine
PROC: 0JB70ZZ Excision of Back Subcutaneous Tissue and Fascia, Open Approach (ICD-10-PCS; principal; 2024-07-23)
DX: J18.9 Pneumonia, unspecified organism (principal); E78.5 Hyperlipidemia, unspecified; I10 Essential (primary) hypertension; E11.9 Type 2 diabetes mellitus without complications; G20.A1 Parkinson's disease without dyskinesia, without mention of fluctuations; L89.300 Pressure ulcer of unspecified buttock, unstageable; E86.0 Dehydration; R86.0 Abnormal level of enzymes in specimens from male genital organs; R19.7 Diarrhea, unspecified; R60.0 Localized edema; J02.9 Acute pharyngitis, unspecified; N40.0 Benign prostatic hyperplasia without lower urinary tract symptoms; E66.9 Obesity, unspecified; Z79.899 Other long term (current) drug therapy; Z86.16 Personal history of COVID-19
CPT/HCPCS: 0241U; 11004; 36415; 71045; 74178; 80048; 80053; 81001; 82947; 83605; 83880; 84145; 84153; 84154; 84484; 85025; 85027; 87040; 87070; 87075; 93005; 93971; 94640; 94760; 97161; 97530; 99284; G0008; Q3014; 90662; J0456; J0694; J0696; J1650; J2270; J2405; J2704; J3010; A9270-GY; J3590-GY

== ENCOUNTER 2024-07-26 14:38 | Inpatient (IN) | payer MEDICARE ==
[2024-07-26] MEDS ORDERED: Zofran 4 MG/2 ML VIAL IV PRN (18:38)
[2024-07-26] MEDS ORDERED: CHLORASEPTIC SPRAY 180 ML PO PRN (18:38)
[2024-07-26] MEDS ORDERED: MORPHINE SULFATE 4 MG INJ IV PRN (18:38)
[2024-07-26] MEDS ORDERED: HUMALOG SQ PRN (18:38)
[2024-07-26] MEDS ORDERED: TYLENOL 325 MG PO PRN (18:38)
[2024-07-26] MEDS: Aplisol ID ONE (20:39)
[2024-07-26] MEDS: FLAGYL 500 MG IVPB 500 MG/100 ML BAG IV SCH (21:10)
[2024-07-26] MEDS: NORCO 5/325 MG PO PRN (22:59)
--- NOTE | 2024-07-27 05:13 | PCM.HP ---
History of Present Illness - Chief Complaint Chief Complaint: WOUND REQUIRING IV ANTIBIOTICS AND SPECIALIZED WOUND CARE Date: 07/27/24 History of Present Illness: HPI: is a 78 year old male with pmhx of hyperlipidemia, HTN, type II DM, OA, parkinson's, and obesity admitted 07/21/24 initially with pneumonia after presenting to ED with chest pressure and dyspnea. CXR demonstrating new mild right infrahilar infiltrate. During his hospital course patient was found to have a necrotic wound to his right buttock with eschar and tunneling above the anus on exam. CT abdomen and pelvis showing new emphysematous cellulitis involving the right buttock. No walled off fluid collection/abscess. Surgery consulted and I&D performed on 07/23/24. IP treatment with abx coverage for his pneumonia and wound with Flagyl and ceftriaxone. Surgery would like pt to go to rehab at d/c for wound care but patient refuses- he would like HHC and OP wound clinic. Wound cultures pending. Dyspnea and cough improved and at baseline RA. Surgery following. Patient to transition to swing bed for wound care, PT, and antibiotics. Patient agreeable to plan and requesting discharge home. Patient with BLE edema this morning. Denies shortness of breath. Overall states he is feeling weak. Will add Lasix today. Advised patient to keep legs elevated. Wound with continued copious drainage. Will continue IV abx. - Review of Systems Constitutional: Weakness Eyes: No Symptoms Ears, Nose, & Throat: No Symptoms Respiratory: No Symptoms Cardiac: Edema (BLE ) Abdominal/Gastrointestinal: No Symptoms Genitourinary Symptoms: No Symptoms Musculoskeletal: No Symptoms Skin: Other (wound to right buttock, covered in dressing) Neurological: No Symptoms Psychological: No Symptoms Endocrine: No Symptoms Medications & Allergies Home Medications: Home Medication List lisinopriL [Zestril] 40 mg PO DAILY 12/11/15 [History Confirmed 07/26/24] Atorvastatin Calcium [Lipitor] 80 mg PO DAILY 06/09/19 [History Confirmed 07/26/24] Ezetimibe 10 mg PO DAILY 06/09/19 [History Confirmed 07/26/24] Metformin HCl 500 mg [Glucophage 500 MG] 500 mg PO DAILY 06/09/19 [History Confirmed 07/26/24] Carbidopa/Levodopa [Carbidopa-Levodopa 25-100 Tab] 2 tab PO 0600 01/15/24 [History Confirmed 07/26/24] Metoprolol Tartrate 25 mg [Lopressor 25MG Tab] 50 mg PO DAILY 01/15/24 [History Confirmed 07/26/24] Carbidopa/Levodopa 25/100 mg [Sinemet 25/100 MG] 1 tab PO 1200 07/21/24 [History Confirmed 07/26/24] Cephalexin Mh 500 mg [Keflex 500 mg] 500 mg PO Q6H 7 Days #28 cap 07/26/24 [Rx Confirmed 07/26/24] Metronidazole 500 mg [Flagyl 500 MG] 500 mg PO BID 7 Days #14 tablet 07/26/24 [Rx Confirmed 07/26/24] Allergies/Adverse Reactions: Allergies Allergy/AdvReac Type Severity Reaction Status Date / Time No Known Drug Allergies Allergy Verified 07/21/24 07:00 - Past Medical History Past Medical History: Yes Neurological History: Other ENT History: No Pertinent History Cardiac History: High Cholesterol, Hypertension Respiratory History: No Pertinent History Endocrine Medical History: Diabetes Type II Musculoskelatal History: Osteoarthritis, Other GI Medical History: No Pertinent History History: No Pertinent History Pyscho-Social History: No Pertinent History Male Reproductive Disorders: No Pertinent History Comment: SX HX; LEFT KNEE REPLACEMENT YEARS AGO, 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 PARKINSON'S - Past Surgical History Past Surgical History: Yes Neuro Surgical History: No Pertinent History Cardiac History: No Pertinent History Respiratory Surgery: No Pertinent History GI Surgical History: No Pertinent History Genitourinary Surgical Hx: No Pertinent History Musculskeletal Surgical Hx: Amputation, Orthopedic Surgery Other Surgical History: TOTAL CLEFT PALATE REPAIR. , finger amputation,left knee joint replacement - Social History Smoking Status: Never smoker Exposure to second hand smoke: No Alcohol: None Drug Use: none - Social Determinants of Health Will the patient participate in the screening: Yes Do you worry about a steady place to live?: No Do you have any problems with any of the following?: No known problems In the past 12 months,have you had to go without utilities?: No Have you or anyone in your house had to go without enough: No Transportation Issues: No Has anyone in your support network made you feel unsafe?: No Does the patient want assistance with any of the above?: No - Physical Exam Vital Signs: Vital Signs - 24 hr Temp Pulse Resp BP Pulse Ox 07/26/24 19:48 97.6 F 81 16 142/58 93 L General Appearance: no apparent distress Neurologic Exam: alert, oriented x 3, cooperative Eye Exam: PERRL/EOMI Ears, Nose, Throat Exam: normal ENT inspection Neck Exam: normal inspection Respiratory Exam: normal breath sounds, lungs clear Cardiovascular Exam: regular rate/rhythm, normal heart sounds Gastrointestinal/Abdomen Exam: soft, normal bowel sounds Rectal Exam: deferred Back Exam: normal inspection Extremity Exam: inflammation (BLE), pedal edema (BLE) Skin Exam: other (see wound assesment right buttock wound covered with dressing CDI) Wound Assessment: Skin/Wound Assessment Wound/Incision Assessment Start: 07/26/24 19:24 Text: Status: Active Freq: Q6H Protocol: Document 07/27/24 01:09 (Rec: 07/27/24 01:09 [id number]) Wound/Incision Assessment Coccyx Wound Assessment Admission Wound Type Pressure Ulcer Wound Stage Unstageable Dressing Status Dry & Intact Drainage Amount Minimal Drainage Description Serosanguineous Packing Type Gauze Roll Primary Dressing Absorbant Pad Comment known wound, dressing CDI. Wet to dry dressing in place Results - Labs Lab/Micro Results: Lab Results-Last 24 Hours 07/26/24 Range/Units 21:43 POC Glucometer 159 H (74 to 106) mg/dL Accuchecks Date 07/26/24 Assessment/Plan (1) Pneumonia Current Visit: No Status: Acute Qualifiers: Assessment & Plan: - CXR reviewed demonstrating new mild right infrahilar infiltrate - resolved - procal reviewd from 07/21/24 - BCX2 reviewed and NGTD -Antimicrobial history reviewed: -Azithromycin - 07/24/24 -Ceftriaxone 07/21/24- current - Flu/COVID/RSV negative -Supplemental oxygen as needed to maintain goal spo2 > 92% - currently on RA (baseline) - on RA Code(s): J18.9 - PNEUMONIA, UNSPECIFIED ORGANISM (2) Pressure ulcer of buttock, unstageable Current Visit: Yes Status: Acute Qualifiers: Laterality: right Qualified Code(s): L89.310 - Pressure ulcer of right buttock, unstageable Assessment & Plan: -CT abdomen and pelvis reviewed showing new emphysematous cellulitis involving the right buttock. No walled off fluid collection/abscess -General surgery consulted, note reviewed, I&D performed 07/23/24 -Wound cultures pending -Flagyl started 07/23/24 -Wound care per surgery - normal saline wet to dry dressing and sitz baths after BM as needed pt needs wound care twice daily -recommends d/c to rehab - patient has decided on Swing bed- wound care per wound team Code(s): L89.300 - PRESSURE ULCER OF UNSPECIFIED BUTTOCK, UNSTAGEABLE (3) Dehydration Current Visit: Yes Status: Acute Assessment & Plan: -2/2 to diarrhea- none since admission -resolved -stool studies pending collection Code(s): E86.0 - DEHYDRATION (4) Diarrhea Current Visit: Yes Status: Acute Assessment & Plan: -resolved Code(s): R19.7 - DIARRHEA, UNSPECIFIED (5) Edema of right lower extremity Current Visit: Yes Status: Acute Assessment & Plan: - S/P R foot surgery 1 1/2 months ago with podiatry - Dr. Gallagher - Venous duplex RLE- negative - TEDS, elevate legs -Lasix 40mg x 1- lasix 20mg po daily -CMP tomorrow Code(s): R60.0 - LOCALIZED EDEMA (6) Sore throat Current Visit: Yes Status: Acute Assessment & Plan: - Chloraseptic spray PRN - resolved Code(s): J02.9 - ACUTE PHARYNGITIS, UNSPECIFIED (7) Enlarged prostate Current Visit: Yes Status: Chronic Assessment & Plan: - PSA-5.8 - advised OP follow up with urology Code(s): N40.0 - BENIGN PROSTATIC HYPERPLASIA WITHOUT LOWER URINRY TRACT SYMP (8) HTN (hypertension) Current Visit: Yes Status: Chronic Assessment & Plan: - BP stable continue home meds Code(s): I10 - ESSENTIAL (PRIMARY) HYPERTENSION (9) Hyperlipidemia Current Visit: Yes Status: Chronic Assessment & Plan: -Continue statin Code(s): E78.5 - HYPERLIPIDEMIA, UNSPECIFIED (10) Obesity (BMI 30-39.9) Current Visit: Yes Status: Chronic Assessment & Plan: advised ADA diet and exercise control Code(s): E66.9 - OBESITY, UNSPECIFIED (11) Parkinson disease Current Visit: Yes Status: Chronic Assessment & Plan: - Continue home meds Code(s): G20.A1 - PARKINSON'S DIS W/O DYSKINESIA, W/O MENTION OF FLUCTUATIONS (12) Type II diabetes mellitus Current Visit: Yes Status: Chronic Qualifiers: Diabetes mellitus retirement insulin use: without retirement use Assessment & Plan: - accuchecks ac/hs - humalog low dose s/s - carb consistent diet - A1C 7.11- 05/24/24 Code(s): J18.9 - PNEUMONIA, UNSPECIFIED ORGANISM (2) Pressure ulcer of buttock, unstageable Current Visit: No Status: Acute Code(s): L89.300 - PRESSURE ULCER OF UNSPECIFIED BUTTOCK, UNSTAGEABLE (3) Edema of right lower extremity Current Visit: No Status: Chronic Code(s): R60.0 - LOCALIZED EDEMA (4) Enlarged prostate Current Visit: No Status: Chronic Code(s): N40.0 - BENIGN PROSTATIC HYPERPLASIA WITHOUT LOWER URINRY TRACT SYMP (5) HTN (hypertension) Current Visit: No Status: Chronic Code(s): I10 - ESSENTIAL (PRIMARY) HYPERTENSION (6) Hyperlipidemia Current Visit: No Status: Chronic Code(s): E78.5 - HYPERLIPIDEMIA, UNSPECIFIED (7) Obesity (BMI 30-39.9) Current Visit: No Status: Chronic Code(s): E66.9 - OBESITY, UNSPECIFIED (8) Parkinson disease Current Visit: No Status: Chronic Code(s): G20.A1 - PARKINSON'S DIS W/O DYSKINESIA, W/O MENTION OF FLUCTUATIONS (9) Type II diabetes mellitus Current Visit: No Status: Chronic (10) Dehydration Current Visit: No Status: Resolved Code(s): E86.0 - DEHYDRATION (11) Diarrhea Current Visit: No Status: Resolved Code(s): R19.7 - DIARRHEA, UNSPECIFIED (12) Sore throat Current Visit: No Status: Resolved Code(s): J02.9 - ACUTE PHARYNGITIS, UNSPECIFIED
[2024-07-27] MEDS: Sinemet 25/100 MG PO SCH ×2 (05:37→11:54)
[2024-07-27] MEDS: Zestril 20 MG PO SCH (09:08)
[2024-07-27] MEDS: Glucophage 500 MG PO SCH (09:09)
[2024-07-27] MEDS: Zetia 10 MG PO SCH (09:09)
[2024-07-27] MEDS: ZOCOR 20MG PO SCH (09:10)
[2024-07-27] MEDS: Acidophilus TABLET PO SCH (09:10)
[2024-07-27] MEDS: Lopressor 50 MG PO SCH (09:10)
[2024-07-27] MEDS: Protonix 20MG Tablet PO SCH (09:11)
[2024-07-27] MEDS: ENOXAPARIN SODIUM SQ SCH (09:11)
[2024-07-27] MEDS: Docusate Sodium 100 MG PO SCH (09:11)
[2024-07-27] MEDS: Lasix 40 MG/4 ML IV ONE (09:12)
[2024-07-27] MEDS: ROCEPHIN 1 GM / 100 ML NaCl 1 GM/100 ML IVPB IV SCH (09:22)
[2024-07-28 05:05] LABS: ALBUMIN 3.5 g/dL (3.5-5.0); ANION GAP 13.5 MEQ/L (5-15); BILIRUBIN,TOTAL 0.5 mg/dL (0.2-1.3); Creatinine 1 0.9 mg/dL (0.66-1.25); EST GLOMERULAR FILTRATION RATE 88.5 ML/MIN; Potassium 4.1 mmol/L (3.5-5.1); Total Protein 6.9 g/dL (6.3-8.2)
[2024-07-28] MEDS: Lasix 40 MG/4 ML IV SCH (09:46)
[2024-07-28] MEDS ORDERED: LASIX 20 MG PO SCH (10:00)
[2024-07-29] MEDS: NORCO 5/325 MG PO PRN (05:20)
[2024-07-29] MEDS: Lasix 40 MG/4 ML IV SCH ×2 (09:25→16:16)
[2024-07-29 09:38] LABS: ANION GAP 15.2 MEQ/L (5-15); Calcium 8.9 mg/dL (8.4-10.2); Creatinine 1 1.06 mg/dL (0.66-1.25); EST GLOMERULAR FILTRATION RATE 72.7 ML/MIN; Potassium 3.8 mmol/L (3.5-5.1)
[2024-07-30 05:18] LABS: ANION GAP 15.9 MEQ/L (5-15); Calcium 8.9 mg/dL (8.4-10.2); Creatinine 1 1.23 mg/dL (0.66-1.25); EST GLOMERULAR FILTRATION RATE 60.8 ML/MIN; Potassium 3.8 mmol/L (3.5-5.1)
[2024-07-30] MEDS: Levofloxacin 500MG/100ML D5W 500 MG/100 ML BAG IV SCH (11:14)
[2024-07-30] MEDS: Levaquin 250MG/50ML D5W 250 MG/50 ML BAG IV SCH (11:15)
[2024-07-31 06:03] LABS: ANION GAP 13.6 MEQ/L (5-15); Creatinine 1 1.54 mg/dL (0.66-1.25); EST GLOMERULAR FILTRATION RATE 46.5 ML/MIN; Potassium 3.8 mmol/L (3.5-5.1)
[2024-08-01 05:33] LABS: ANION GAP 13.1 MEQ/L (5-15); Calcium 8.9 mg/dL (8.4-10.2); Creatinine 1 1.01 mg/dL (0.66-1.25); EST GLOMERULAR FILTRATION RATE 77.1 ML/MIN
--- NOTE | 2024-08-01 10:04 | PCM.DS ---
Discharge Summary Date of Admission: 07/26/24 18:00 Date of Discharge: 08/01/24 Admitting Physician: NIA DOUGHERTY MD Primary Care Provider: LENA DUGGAN VARUN Allergies Allergies No Known Drug Allergies Allergy (Verified 07/21/24 07:00) Hospital Summary - Hospital Course Hospital Course: is a 79 year old female with a pmhx of alzheimer's disease, migraines, CHF,HTN, COPD (on home oxygen) , breast/ovarian cancer, and depression admitted 07/30/24 for COPD/CHF exacerbation after presentation to the ED with two days of a main complaints of progressive shortness of breath and productive cough with yellow phlegm. She also reported some nausea, vomiting, and diarrhea. Upon arrival to ED, spo2 in the mid 80's on RA, patient placed on 2L oxygen. CXR and CT abd/pelvis with no acute findings. EKG interpreted by ED physician RATE (64), Sinus Rhythm, Left Jefferson Deviation, prolonged QT interval, Q-wave. Lab findings remarkable for leukocytosis with WBC at 10.3, normocytic anemia with hgb at 8.4, hypokalemic at 3.4, BNP at 5350, and troponin-I elevated at 0.063. Dyspnea improved. IP treatment with augmentin. Patient on her baseline oxygen of 2L. Hypokalemia/leukocytosis resloved. Patient is requesting discharge home today. Will send on Augmentin and prednisone. Patient to follow up with pcp/cards/pulm. Discharge Note New Diagnosis: COPD/CHF exacerbation New Medications: Augmentin/prednisone Follow Up: pcp/cards/pulm Results pending: Outpatient testing to order: Latest Assessment & Plan (1) Acute respiratory failure with hypoxia Current Visit: No Status: Acute Assessment & Plan: -secondary to copd/chf exacerbation -CXR reviewed with no acute findings -supplemental oxygen with goal spo2 88-92% -2L at baseline which she is now on -Nebs/INH -pulmicort -RT eval -steroids/abx Code(s): J96.01 - ACUTE RESPIRATORY FAILURE WITH HYPOXIA (2) COPD exacerbation Current Visit: Yes Status: Acute Assessment & Plan: -See ARF above Code(s): J44.1 - CHRONIC OBSTRUCTIVE PULMONARY DISEASE W (ACUTE) EXACERBATION (3) Acute exacerbation of CHF (congestive heart failure) Current Visit: Yes Status: Acute Assessment & Plan: -Echo reviewed from 09/29/23 showing an EF of 45-50% IMPRESSION: 1) MILD DECREASE IN LEFT VENTRICULAR SYSTOLIC FUNCTION. 2) BORDERLINE CONCENTRIC LEFT VENTRICULAR HYPERTROPHY. 3) MILD LEFT VENTRICULAR DILATATION. 4) RIGHT VENTRICULAR DILATATION. 5) MILD LEFT ATRIAL DILATATION. 6) MILD TRICUSPID REGURGITATION. 7) NORMAL RIGHT VENTRICULAR SYSTOLIC PRESSURE. -BNP at 5350 -lasix 40mg BID initiated -continue on 40mg daily -potassium supplementation daily -Elevated HOB -daily weights -Strict I&O Code(s): I50.9 - HEART FAILURE, UNSPECIFIED (4) Diarrhea Current Visit: Yes Status: Acute Assessment & Plan: -Patient states this is chronic -Check for cdiff with recent abx use -stool cultures/stool studies -hold immodium until completed cdiff -CT abdomen reviewed with no acute findings Code(s): R19.7 - DIARRHEA, UNSPECIFIED (5) Nausea Current Visit: Yes Status: Acute Assessment & Plan: -Zofran prn -resolved Code(s): R11.0 - NAUSEA (6) Hypokalemia Current Visit: Yes Status: Acute Assessment & Plan: -Potassium reviewed andat 2.9 - potassium protocol initiated, recheck at 3.7, will begin daily oral supplementation with lasix Code(s): E87.6 - HYPOKALEMIA (7) Normocytic anemia Current Visit: Yes Status: Acute Assessment & Plan: -Hemoglobin reviewed and 8.7 on admission - reviewed labs from September with hgb at 9.7 -iron studies pending -check occult stools -CT abdomen pelvis essentially negative Code(s): D64.9 - ANEMIA, UNSPECIFIED (8) HTN (hypertension) Current Visit: Yes Status: Acute Assessment & Plan: -stable continue home meds Code(s): I10 - ESSENTIAL (PRIMARY) HYPERTENSION (9) History of breast cancer Current Visit: Yes Status: Acute Assessment & Plan: -noted - >10 year ago s/p chemo/radiation lumpectomy right breast Code(s): Z85.3 - PERSONAL HISTORY OF MALIGNANT NEOPLASM OF BREAST (10) History of ovarian cancer Current Visit: Yes Status: Acute Assessment & Plan: -noted s/p total hysterectomy (11) Obesities, morbid Current Visit: Yes Status: Acute Assessment & Plan: -advised diet and exercise Code(s): E66.01 - MORBID (SEVERE) OBESITY DUE TO EXCESS CALORIES (12) Dementia Current Visit: Yes Status: Acute Assessment & Plan: -continue namenda Code(s): F03.90 - UNSP DEMENTIA, UNSP SEVERITY, WITHOUT BEH/PSYCH/MOOD/ANX (13) Depression Current Visit: Yes Status: Acute Assessment & Plan: -continue namends DVT prophylaxis SCD/Lovenox Dispo: 1-2 days CODE STATUS full Code(s): F32.A - DEPRESSION, UNSPECIFIED (14) Elevated troponin Current Visit: Yes Status: Acute Assessment & Plan: -Most likely demand ischemia -downtrending -EKG with no ischemic changes -denies CP -continue tele I spent 35 minutes [id number] with the patient on the day of discharge performing discharge exam, discussing hospital stay and discharge instructions with patient and caregivers, preparation of discharge records, prescriptions & referral forms and addressing any questions/concerns the patient had as documented above. - Vitals & Intake/Output Vital Signs: Vital Signs Temperature 97.9 F 08/01/24 07:53 Pulse Rate 84 08/01/24 08:50 Respiratory Rate 19 08/01/24 07:53 Blood Pressure 120/59 08/01/24 08:50 O2 Sat by Pulse Oximetry 94 L 08/01/24 07:53 Intake & Output: Intake & Output 07/29/24 07/30/24 07/31/24 08/01/24 11:59 11:59 11:59 11:59 Intake Total 940 480 960 Output Total 750 100 Balance 190 480 -100 960 Weight 127.2 kg 124.3 kg - Lab Result Diagrams: 08/01/24 05:10 Lab Results-Last 24 Hrs: Lab Results-Last 24 Hours 07/31/24 07/31/24 07/31/24 Range/Units 16:26 16:26 22:00 Sodium (135-145) mmol/L Potassium (3.5-5.1) mmol/L Chloride (98-107) mmol/L Carbon Dioxide (22-30) mmol/L Anion Gap (5-15) MEQ/L BUN (9-20) mg/dL Creatinine (0.66-1.25) mg/dL Estimated GFR ML/MIN Glucose (74-106) mg/dL POC Glucometer 144 H 144 H 129 H (74 to 106) mg/dL Calcium (8.4-10.2) mg/dL 08/01/24 08/01/24 Range/Units 05:10 06:50 Sodium 135 (135-145) mmol/L Potassium 4.0 (3.5-5.1) mmol/L Chloride 101 (98-107) mmol/L Carbon Dioxide 25 (22-30) mmol/L Anion Gap 13.1 (5-15) MEQ/L BUN 20 (9-20) mg/dL Creatinine 1.01 (0.66-1.25) mg/dL Estimated GFR 77.1 ML/MIN Glucose 141 H (74-106) mg/dL POC Glucometer 185 H (74 to 106) mg/dL Calcium 8.9 (8.4-10.2) mg/dL Micro Results-Entire Visit: Accuchecks Date 08/01/24 Date 07/31/24 Date 07/31/24 Time 07:53 Time 16:41 Time 11:33 - Procedures and Test Procedures and Tests throughout Hospitalization: Therapy Orders & Screens 07/26/24 18:38 PT Eval & Treat ( Order) ONCE Reason for Eval:: WOUND CARE RECOMMENDATIONS Diagnosis: INFECTED WOUND PRESSURE ULCER R BUTTOCK, PNEUMONIA 07/27/24 06:17 PT Clarification Order ROUTINE Comment: Physician Instructions: Reason For Exam: PT Clarification: PT TO TREAT TO ADDRESS WOUND DEBRIDEMENT AND CONSULT W/ NURSING 3-5X/WK RE: DRESSING RECOMMENDATIONS PRN TO PROMOTE WOUND HEALING TO SUFFICIENT DEGREE THAT PT. CAN MANAGE W/ HHC AND WOUND CENTER AT D/C. Discharge Exam General Appearance: no apparent distress Neurologic Exam: alert, oriented x 3, cooperative Eye Exam: PERRL Ears, Nose, Throat Exam: normal ENT inspection Neck Exam: normal inspection Respiratory Exam: crackles/rales, wheezing Cardiovascular Exam: regular rate/rhythm, normal heart sounds Gastrointestinal/Abdomen Exam: soft, normal bowel sounds Male Genitalia Exam: deferred Rectal Exam: deferred Back Exam: normal inspection Wound Assessment: Skin/Wound Assessment Wound/Incision Assessment Start: 07/26/24 19:24 Text: Status: Active Freq: Q6H Protocol: Document 08/01/24 08:00 FARRAH (Rec: 08/01/24 08:03 FARRAH [id number]) Wound/Incision Assessment Coccyx Wound Assessment Shift Assessment Wound Type Pressure Ulcer Wound Stage Unstageable Dressing Status Dry & Intact Comment Dressing remains intact. Wound Photo Photo Taken No Final Diagnosis/Problem List - Final Discharge Diagnosis/Problem (1) Pneumonia Current Visit: No Status: Acute Code(s): J18.9 - PNEUMONIA, UNSPECIFIED ORGANISM (2) Pressure ulcer of buttock, unstageable Current Visit: No Status: Acute Code(s): L89.300 - PRESSURE ULCER OF UNS PECIFIED BUTTOCK, UNSTAGEABLE (3) Edema of right lower extremity Current Visit: No Status: Chronic Code(s): R60.0 - LOCALIZED EDEMA (4) Enlarged prostate Current Visit: No Status: Chronic Code(s): N40.0 - BENIGN PROSTATIC HYPERPLASIA WITHOUT LOWER URINRY TRACT SYMP (5) HTN (hypertension) Current Visit: No Status: Chronic Code(s): I10 - ESSENTIAL (PRIMARY) HYPERTENSION (6) Hyperlipidemia Current Visit: No Status: Chronic Code(s): E78.5 - HYPERLIPIDEMIA, UNSPECIFIED (7) Obesity (BMI 30-39.9) Current Visit: No Status: Chronic Code(s): E66.9 - OBESITY, UNSPECIFIED (8) Parkinson disease Current Visit: No Status: Chronic Code(s): G20.A1 - PARKINSON'S DIS W/O DYSKINESIA, W/O MENTION OF FLUCTUATIONS (9) Type II diabetes mellitus Current Visit: No Status: Chronic (10) Dehydration Current Visit: No Status: Resolved Code(s): E86.0 - DEHYDRATION (11) Diarrhea Current Visit: No Status: Resolved Code(s): R19.7 - DIARRHEA, UNSPECIFIED (12) Sore throat Current Visit: No Status: Resolved Code(s): J02.9 - ACUTE PHARYNGITIS, UNSPECIFIED - Discharge Disposition: Home, Self-Care Condition: Stable Prescriptions: No Action lisinopriL [Zestril] 40 mg PO DAILY Metformin HCl 500 mg [Glucophage 500 MG] 500 mg PO DAILY Ezetimibe 10 mg PO DAILY Atorvastatin Calcium [Lipitor] 80 mg PO DAILY Metoprolol Tartrate 25 mg [Lopressor 25MG Tab] 50 mg PO DAILY Carbidopa/Levodopa [Carbidopa-Levodopa 25-100 Tab] 2 tab PO 0600 Carbidopa/Levodopa 25/100 mg [Sinemet 25/100 MG] 1 tab PO 1200 Metronidazole 500 mg [Flagyl 500 MG] 500 mg PO BID 7 Days #14 tablet Cephalexin Mh 500 mg [Keflex 500 mg] 500 mg PO Q6H 7 Days #28 cap Additional Instructions: LEAVE DRESSING IN PLACE UNTIL YOU SEE WOUND CENTER TOMORROW YOU HAVE AN APT AT [facility] 07/31@7512 -[address] [facility], [address] [address], 1ST FLOOR THEY WILL EVALUATE YOUR WOUND AND ADVISE FURTHER FOR WOUND CARE/DRESSING CHANGES. [facility] YOU. THEY WILL CONTACT YOU TO ARRANGE A TIME TO COME SEE YOU. IF YOU NEED ANYTHING, YOU CAN REACH THEM AT [phone] Follow up with: LENA DUGGAN MD [Primary Care Provider] -
[2024-08-02 05:49] LABS: ANION GAP 13.9 MEQ/L (5-15); Calcium 9.2 mg/dL (8.4-10.2); Creatinine 1 1.11 mg/dL (0.66-1.25); EST GLOMERULAR FILTRATION RATE 68.8 ML/MIN; Potassium 4.1 mmol/L (3.5-5.1)
[2024-08-02 07:16] VITALS: BP 116/57; PULSE 75; RESP 16; TEMP 98.1; O2SAT 93
[2024-08-02] MEDS: Levofloxacin 500 MG Tablet PO ONE (11:54)
[2024-08-02] MEDS: Levofloxacin 250MG Tablet PO ONE (11:54)
[2024-08-02] MEDS: Flagyl 500 MG PO ONE (11:54)
--- NOTE | 2024-08-02 12:08 | PCM.DS ---
Discharge Summary Date of Admission: 07/26/24 18:00 Date of Discharge: 08/02/24 Admitting Physician: NIA DOUGHERTY MD Primary Care Provider: LENA DUGGAN VARUN Allergies Allergies No Known Drug Allergies Allergy (Verified 07/21/24 07:00) Hospital Summary - Hospital Course Hospital Course: is a 78 year old male with pmhx of hyperlipidemia, HTN, type II DM, OA, parkinson's, and obesity admitted 07/21/24 initially with pneumonia after presenting to ED with chest pressure and dyspnea. CXR demonstrating new mild right infrahilar infiltrate. During his hospital course patient was found to have a necrotic wound to his right buttock with eschar and tunneling above the anus on exam. CT abdomen and pelvis showing new emphysematous cellulitis i nvolving the right buttock. No walled off fluid collection/abscess. Surgery consulted and I&D performed on 07/23/24. IP treatment with abx coverage for his pneumonia and wound with Flagyl and ceftriaxone. Surgery would like pt to go to rehab at d/c for wound care but patient refuses- he would like HHC and OP wound clinic. Dyspnea and cough improved and at baseline RA. Surgery following. Patient transitioned to swing bed for wound care, PT, and antibiotics. Patient agreeable to plan and requesting discharge home. Patient with BLE edema this morning. Denies shortness of breath. Overall states he is feeling weak. He is refusing to have legs wrapped by podiatry but willing to f/u Op. Staff was unable to put JAYY hose on and he has been elevating his legs an feet. Will continue PO antibiotics OP. He explains he needs to leave by 3 today and has plans. He denies any further concerns and is walking well in his room today. - Vitals & Intake/Output Vital Signs: Vital Signs Temperature 98.1 F 08/02/24 07:15 Pulse Rate 75 08/02/24 07:15 Respiratory Rate 16 08/02/24 07:15 Blood Pressure 116/57 08/02/24 07:15 O2 Sat by Pulse Oximetry 93 L 08/02/24 07:15 Intake & Output: Intake & Output 07/31/24 08/01/24 08/02/24 08/03/24 11:59 11:59 11:59 11:59 Intake Total 960 1030 Output Total 100 Balance -600 507 7242 - Lab Result Diagrams: 08/02/24 04:50 Lab Results-Last 24 Hrs: Lab Results-Last 24 Hours 08/01/24 08/01/24 08/02/24 Range/Units 16:29 20:10 04:50 Sodium 138 (135-145) mmol/L Potassium 4.1 (3.5-5.1) mmol/L Chloride 102 (98-107) mmol/L Carbon Dioxide 26 (22-30) mmol/L Anion Gap 13.9 (5-15) MEQ/L BUN 17 (9-20) mg/dL Creatinine 1.11 (0.66-1.25) mg/dL Estimated GFR 68.8 ML/MIN Glucose 137 H (74-106) mg/dL POC Glucometer 106 157 H (74 to 106) mg/dL Calcium 9.2 (8.4-10.2) mg/dL 08/02/24 08/02/24 Range/Units 07:26 11:38 Sodium (135-145) mmol/L Potassium (3.5-5.1) mmol/L Chloride (98-107) mmol/L Carbon Dioxide (22-30) mmol/L Anion Gap (5-15) MEQ/L BUN (9-20) mg/dL Creatinine (0.66-1.25) mg/dL Estimated GFR ML/MIN Glucose (74-106) mg/dL POC Glucometer 141 H 112 H (74 to 106) mg/dL Calcium (8.4-10.2) mg/dL Micro Results-Entire Visit: Accuchecks Date 08/02/24 Date 08/02/24 Date 08/01/24 Date 08/01/24 Time 11:50 Time 07:40 Time 20:00 Time 16:57 - Procedures and Test Procedures and Tests throughout Hospitalization: Therapy Orders & Screens 07/26/24 18:38 PT Eval & Treat ( Order) ONCE Reason for Eval:: WOUND CARE RECOMMENDATIONS Diagnosis: INFECTED WOUND PRESSURE ULCER R BUTTOCK, PNEUMONIA 07/27/24 06:17 PT Clarification Order ROUTINE Comment: Physician Instructions: Reason For Exam: PT Clarification: PT TO TREAT TO ADDRESS WOUND DEBRIDEMENT AND CONSULT W/ NURSING 3-5X/WK RE: DRESSING RECOMMENDATIONS PRN TO PROMOTE WOUND HEALING TO SUFFICIENT DEGREE THAT PT. CAN MANAGE W/ HHC AND WOUND CENTER AT D/C. Discharge Exam General Appearance: no apparent distress, alert Neurologic Exam: alert, oriented x 3, cooperative, normal mood/affect, nml cerebellar function, sensation nml, No motor deficits Eye Exam: PERRL, EOMI, eyes nml inspection Ears, Nose, Throat Exam: normal ENT inspection, pharynx normal, moist mucous membranes Neck Exam: normal inspection, non-tender, supple, full range of motion Respiratory Exam: normal breath sounds, lungs clear, No respiratory distress Cardiovascular Exam: regular rate/rhythm, normal heart sounds Gastrointestinal/Abdomen Exam: soft, No tenderness, No mass Male Genitalia Exam: deferred Rectal Exam: deferred Back Exam: normal inspection, normal range of motion, No CVA tenderness, No vertebral tenderness Extremity Exam: normal inspection, normal range of motion, swelling (BLLE + 3 pitting) Skin Exam: normal color, warm, dry, other (wound to bottom - healing well) Wound Assessment: Skin/Wound Assessment Wound/Incision Assessment Start: 07/26/24 19:24 Text: Status: Active Freq: Q6H Protocol: Document 08/02/24 09:00 EK (Rec: 08/02/24 09:22 EK [id number]) Wound/Incision Assessment Coccyx Wound Assessment Shift Assessment Wound Type Pressure Ulcer Wound Stage Unstageable Dressing Status Dry & Intact Comment DRESSING C/D/I Final Diagnosis/Problem List - Final Discharge Diagnosis/Problem (1) Pneumonia Current Visit: No Status: Acute Code(s): J18.9 - PNEUMONIA, UNSPECIFIED ORGANISM (2) Pressure ulcer of buttock, unstageable Current Visit: No Status: Acute Code(s): L89.300 - PRESSURE ULCER OF UNSPECIFIED BUTTOCK, UNSTAGEABLE (3) Dehydration Current Visit: No Status: Resolved Code(s): E86.0 - DEHYDRATION (4) Diarrhea Current Visit: No Status: Resolved Code(s): R19.7 - DIARRHEA, UNSPECIFIED (5) Edema of right lower extremity Current Visit: No Status: Chronic Code(s): R60.0 - LOCALIZED EDEMA (6) Sore throat Current Visit: No Status: Resolved Code(s): J02.9 - ACUTE PHARYNGITIS, UNSPECIFIED (7) Enlarged prostate Current Visit: No Status: Chronic Code(s): N40.0 - BENIGN PROSTATIC HYPERPLASIA WITHOUT LOWER URINRY TRACT SYMP (8) HTN (hypertension) Current Visit: No Status: Chronic Code(s): I10 - ESSENTIAL (PRIMARY) HYPERTENSION (9) Hyperlipidemia Current Visit: No Status: Chronic Code(s): E78.5 - HYPERLIPIDEMIA, UNSPECIFIED (10) Obesity (BMI 30-39.9) Current Visit: No Status: Chronic Code(s): E66.9 - OBESITY, UNSPECIFIED (11) Parkinson disease Current Visit: No Status: Chronic Code(s): G20.A1 - PARKINSON'S DIS W/O DYSKINESIA, W/O MENTION OF FLUCTUATIONS (12) Type II diabetes mellitus Current Visit: No Status: Chronic Assessment & Plan: (1) Pneumonia Current Visit: No Status: Acute Qualifiers: Assessment & Plan: - CXR reviewed demonstrating new mild right infrahilar infiltrate - resolved - procal reviewd from 07/21/24 - BCX2 reviewed and NGTD -Antimicrobial history reviewed: -Azithromycin - 07/24/24 -Ceftriaxone 07/21/24- current - Flu/COVID/RSV negative -Supplemental oxygen as needed to maintain goal spo2 > 92% - currently on RA (baseline) - on RA Code(s): J18.9 - PNEUMONIA, UNSPECIFIED ORGANISM (2) Pressure ulcer of buttock, unstageable Current Visit: Yes Status: Acute Qualifiers: Laterality: right Qualified Code(s): L89.310 - Pressure ulcer of right buttock, unstageable Assessment & Plan: -CT abdomen and pelvis reviewed showing new emphysematous cellulitis involving the right buttock. No walled off fluid collection/abscess -General surgery consulted, note reviewed, I&D performed 07/23/24 -Wound cultures reviewed -Flagyl started 07/23/24 -Wound care per surgery - normal saline wet to dry dressing and sitz baths after BM as needed pt needs wound care twice daily -recommends d/c to rehab - patient has decided on Swing bed- wound care per wound team - F/U OP wound care at [place]- appointment tomorrow - [facility] OP -Continue PO antibiotics OP Code(s): L89.300 - PRESSURE ULCER OF UNSPECIFIED BUTTOCK, UNSTAGEABLE (3) Dehydration Current Visit: Yes Status: Acute Assessment & Plan: -2/2 to diarrhea- none since admission -resolved -stool studies pending collection- cancelled Code(s): E86.0 - DEHYDRATION (4) Diarrhea Current Visit: Yes Status: Acute Assessment & Plan: -resolved Code(s): R19.7 - DIARRHEA, UNSPECIFIED (5) Edema of right lower extremity Current Visit: Yes Status: Acute Assessment & Plan: - S/P R foot surgery 1 1/2 months ago with podiatry - Dr. Gallagher - Venous duplex RLE- negative - TEDS, elevate legs -Lasix 40mg x 1- lasix 20mg po daily -CMP reviewed Code(s): R60.0 - LOCALIZED EDEMA (6) Sore throat Current Visit: Yes Status: Acute Assessment & Plan: - Chloraseptic spray PRN - resolved Code(s): J02.9 - ACUTE PHARYNGITIS, UNSPECIFIED (7) Enlarged prostate Current Visit: Yes Status: Chronic Assessment & Plan: - PSA-5.8 - advised OP follow up with urology Code(s): N40.0 - BENIGN PROSTATIC HYPERPLASIA WITHOUT LOWER URINRY TRACT SYMP (8) HTN (hypertension) Current Visit: Yes Status: Chronic Assessment & Plan: - BP stable continue home meds Code(s): I10 - ESSENTIAL (PRIMARY) HYPERTENSION (9) Hyperlipidemia Current Visit: Yes Status: Chronic Assessment & Plan: -Continue statin Code(s): E78.5 - HYPERLIPIDEMIA, UNSPECIFIED (10) Obesity (BMI 30-39.9) Current Visit: Yes Status: Chronic Assessment & Plan: advised ADA diet and exercise control Code(s): E66.9 - OBESITY, UNSPECIFIED (11) Parkinson disease Current Visit: Yes Status: Chronic Assessment & Plan: - Continue home meds Code(s): G20.A1 - PARKINSON'S DIS W/O DYSKINESIA, W/O MENTION OF FLUCTUATIONS (12) Type II diabetes mellitus Current Visit: Yes Status: Chronic Qualifiers: 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 use Assessment & Plan: - accuchecks ac/hs - humalog low dose s/s - carb consistent diet - A1C 7.11- 05/24/24 Code(s): J18.9 - PNEUMONIA, UNSPECIFIED ORGANISM - Discharge Discharge Date: 08/02/24 Disposition: HOME HEALTH SERVICE Condition: Stable Prescriptions: Continue lisinopriL [Zestril] 40 mg PO DAILY Metformin HCl 500 mg [Glucophage 500 MG] 500 mg PO DAILY Ezetimibe 10 mg PO DAILY Atorvastatin Calcium [Lipitor] 80 mg PO DAILY Metoprolol Tartrate 25 mg [Lopressor 25MG Tab] 50 mg PO DAILY Carbidopa/Levodopa [Carbidopa-Levodopa 25-100 Tab] 2 tab PO 0600 Carbidopa/Levodopa 25/100 mg [Sinemet 25/100 MG] 1 tab PO 1200 Metronidazole 500 mg [Flagyl 500 MG] 500 mg PO BID 7 Days #14 tablet Cephalexin Mh 500 mg [Keflex 500 mg] 500 mg PO Q6H 7 Days #28 cap Additional Instructions: LEAVE DRESSING IN PLACE UNTIL YOU SEE WOUND CENTER TOMORROW. YOU HAVE AN APT AT [facility] 07/31 @ [phone] [facility], [address] 1ST FLOOR THEY WILL EVALUATE YOUR WOUND AND ADVISE FURTHER FOR WOUND CARE/DRESSING CHANGES. [facility] BEEN [facility] UP FOR YOU. THEY WILL CONTACT YOU TO ARRANGE A TIME TO COME SEE YOU. IF YOU NEED ANYTHING, YOU CAN REACH THEM AT [phone] YOU HAVE HAD A 3 NIGHT INPT STAY AT [facility] FROM 07/22/24-07/26/24. THIS WILL QUALIFY YOU FOR A REHAB STAY AT A [facility] FACILITY LONG IT IS STARTED WITHIN 30 DAYS FROM 07/26/24. IF REHAB STAY NEEDED- YOU JUST NEED TO CONTACT THE FACILITY YOU WISH TO GO AND SPEAK WITH THEIR ADMISSIONS PEOPLE. THEY CAN CONTACT [facility] FOR ADDITIONAL INFORMATION IF NEEDED. Follow up with: LENA DUGGAN MD [Primary Care Provider] - 08/06/24 2:15 pm
[2024-08-04] MEDS ORDERED: Aplisol ID ONE (10:00)
== END 2024-08-02 14:14 | disposition home health service (06) | DRG 195 ==
LOC: MED SURG 18:00 → UNDOADMIN 18:32 → MED SURG 18:32
PROVIDERS: ADMIT Internal Medicine; ATTEND Internal Medicine
DX: J18.9 Pneumonia, unspecified organism (principal); L89.150 Pressure ulcer of sacral region, unstageable; E86.0 Dehydration; R19.7 Diarrhea, unspecified; R60.0 Localized edema; J02.9 Acute pharyngitis, unspecified; N40.0 Benign prostatic hyperplasia without lower urinary tract symptoms; I10 Essential (primary) hypertension; E78.5 Hyperlipidemia, unspecified; E66.9 Obesity, unspecified; G20.A1 Parkinson's disease without dyskinesia, without mention of fluctuations; E11.9 Type 2 diabetes mellitus without complications; Z79.899 Other long term (current) drug therapy
CPT/HCPCS: 36415; 80048; 80053; 82947; J0696; J1650; J1940; J1956; Q3014; A9270-GY

== ENCOUNTER 2024-08-14 14:48 | Observation (INO) | payer MEDICARE ==
--- NOTE | 2024-08-14 15:05 | ERPHSYRPT ---
- History of Present Illness Time Seen by Provider: 08/14/24 15:05 Source: patient, EMS, old records Exam Limitations: clinical condition Physician History: This is a morbidly obese 78-year-old white male patient brought to the emergency department by the [facility] service secondary to the concern that the patient fell. The fall was not witnessed. Patient is mildly lethargic but arousable. When asked, he states he did not recall falling or hitting his head. There has been a change in his mental status. Patient has known decubitus buttock ulceration. Patient arrives to the emergency department with no chest pain, no shortness of breath, no abdominal pain. He is afebrile his heart rate is in the 70s and his systolic blood pressure is in the high 90s. Patient has a history of hypertension, diabetes, Parkinson disease, hyperlipidemia. He does complain of pain in the area of the decubitus ulcer. Patient has soiled his adult diaper. Occurred: just prior to arrival Reason for Fall: unknown (Uncertain if he actually fell. Patient does not believe he fell. The "fall" was not witnessed) Injuries/Pain Location: back (Lower back/buttock pain in the area of his decubitus ulcer) Loss of Consciousness: other (Patient is mildly lethargic but arousable and answers questions.) Quality: aching (Tenderness is in the lower back/midline buttock area in the area of decubitus ulcer) Severity of Pain-Max: mild Severity of Pain-Current: mild Associated Symptoms (Fall): confusion (Mildly), No extremity injury, No headache, No neck pain, No seizures, No shortness of breath, No vomiting, No vision changes Allergies/Adverse Reactions: No Known Drug Allergies Allergy (Verified 07/21/24 07:00) Home Medications: lisinopriL [Zestril] 40 mg PO DAILY 12/11/15 [History] Atorvastatin Calcium [Lipitor] 80 mg PO DAILY 06/09/19 [History] Ezetimibe 10 mg PO DAILY 06/09/19 [History] Metformin HCl 500 mg [Glucophage 500 MG] 500 mg PO DAILY 06/09/19 [History] Carbidopa/Levodopa [Carbidopa-Levodopa 25-100 Tab] 2 tab PO 0600 01/15/24 [History] Metoprolol Tartrate 25 mg [Lopressor 25MG Tab] 50 mg PO DAILY 01/15/24 [History] Carbidopa/Levodopa 25/100 mg [Sinemet 25/100 MG] 1 tab PO 1200 07/21/24 [History] Furosemide 40 mg [Lasix 40 MG] 40 mg PO DAILY 08/14/24 [History] Hydrocodone/Acetaminophen [Garrison 10-325 mg] 1 tab PO DAILY PRN 08/14/24 [History] Potassium Chloride 10 meq PO DAILY 08/14/24 [History] Hx Tetanus, Diphtheria Vaccination/Date Given: Yes Hx Influenza Vaccination/Date Given: No Hx Pneumococcal Vaccination/Date Given: Yes Travel Risk - International Travel Have you traveled outside of the country in past 3 weeks: No - Emerging Infectious Disease Are you exhibiting symptoms associated with any current EIDs: No - Review of Systems Constitutional: Lethargy (Arousable) Eyes: No Symptoms Ears, Nose, & Throat: No Symptoms Respiratory: No Symptoms Cardiac: No Symptoms Abdominal/Gastrointestinal: No Symptoms Genitourinary Symptoms: No Symptoms Musculoskeletal: Back Pain (Midline lower back in the area of his decubitus) Skin: Decubiti (Sacral midline buttock with stool present in it) Neurological: Lethargy (But arousable) Psychological: No Symptoms Endocrine: No Symptoms Hematologic/Lymphatic: No Symptoms Immunological/Allergic: No Symptoms All Other Systems: Reviewed and Negative - Past Medical History Pertinent Past Medical History: Yes Neurological History: Other ENT History: No Pertinent History Cardiac History: High Cholesterol, Hypertension Respiratory History: No Pertinent History Endocrine Medical History: Diabetes Type II Musculoskeletal History: Osteoarthritis, Other GI Medical History: No Pertinent History History: No Pertinent History Psycho-Social History: No Pertinent History Male Reproductive Disorders: No Pertinent History Other Medical History: SX HX; LEFT KNEE REPLACEMENT YEARS AGO, 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 , finger amputation,left knee joint replacement - Social History Smoking Status: Never smoker Exposure to second hand smoke: No Drug Use: none Patient Lives Alone: Yes - Social Determinants of Health Will the patient participate in the screening: Yes Do you worry about a steady place to live?: No In the past 12 months,have you had to go without utilities?: No Transportation Issues: No Has anyone in your support network made you feel unsafe?: No Have you or anyone in your house had to go without enough: No - Nursing Vital Signs Nursing Vital Signs: Initial Vital Signs Pulse Rate 77 08/14/24 15:00 Respiratory Rate 15 08/14/24 15:00 Blood Pressure 98/49 08/14/24 15:00 O2 Sat by Pulse Oximetry 94 L 08/14/24 15:00 Pain Scale Pain Intensity 0 - Wolcott Coma Score Best Eye Response (Qian): (3) open to voice Best Verbal Response (Wolcott): (5) oriented Best Motor Response (Qian): (6) obeys commands Wolcott Total: 14 - Physical Exam General Appearance: lethargy, obese Head Injury: no evidence of injury Eye Exam: PERRL/EOMI, eyes nml inspection ENT Exam: airway nml, nml ext.inspection, No evidence of ENT injury Neck Exam: supple, trachea midline, full range of motion, normal alignment, normal inspection Respiratory/Chest Exam: normal breath sounds, crepitus, No chest tenderness, No respiratory distress, No ecchymosis Cardiovascular Exam: normal heart sounds, regular rate/rhythm Gastrointestinal Exam: soft, normal bowel sounds, No tenderness Rectal Exam: not done Back Exam: normal inspection, normal range of motion, No CVA tenderness, No vertebral tenderness Extremity Exam: normal inspection, normal range of motion, pelvis stable (Mildly) Neurologic Exam: confusion (Mildly confused), other (Large but rousable) Skin Exam: other (Sacral decubitus ulceration site with infection and stool present) SpO2 Interpretation: borderline oxygenation O2 Delivery: Room Air - Course Nursing assessment & vital signs reviewed: Yes Ordered Tests: Active Orders 24 hr Category Date Time Status Web Marketing Manager STAT Care 08/14/24 17:33 Active Catheter-Pangburn Mott STAT Care 08/14/24 17:32 Active IV Insertion STAT Care 08/14/24 17:32 Active Pulse Oximetry (ED) STAT Care 08/14/24 17:32 Active ABDOMEN AND PELVIS W/0 CONTRAS [CT] Stat Exams 08/14/24 20:22 Completed CERVICAL SPINE WO CONTRAST [CT] Stat Exams 08/14/24 16:40 Completed FACIAL BONES WO CONTRAST [CT] Stat Exams 08/14/24 16:40 Completed HEAD WITHOUT CONTRAST [CT] Stat Exams 08/14/24 16:40 Completed BLOOD CULTURE Stat Lab 08/14/24 18:10 Received CBC W DIFF Stat Lab 08/14/24 18:05 Completed CMP Stat Lab 08/14/24 18:05 Completed CULTURE,URINE Stat Lab 08/14/24 17:33 Received CULTURE,WOUND Stat Lab 08/14/24 21:43 Received Lactic Acid Stat Lab 08/14/24 17:50 Completed MONO SCREEN Stat Lab 08/14/24 18:05 Completed UA W/RFX UR CULTURE Stat Lab 08/14/24 17:33 Completed Medication Summary Generic Name Dose Route Start Last Admin Trade Name Freq PRN Reason Stop Dose Admin Piperacillin Sod/Tazobactam 100 mls @ 200 mls/hr 08/14/24 21:53 08/14/24 22:01 Sod 3.375 gm/ Sodium Chloride IV 08/14/24 22:22 200 mls/hr STAT ONE Administration Discontinued Medications Generic Name Dose Route Start Last Admin Trade Name Freq PRN Reason Stop Dose Admin Sodium Chloride 1,000 mls @ 999 mls/hr 08/14/24 17:32 08/14/24 19:35 Sodium Chloride 0.9% 1000 Ml IV 08/14/24 18:32 Infused .Q1H1M STA Infusion Sodium Chloride Confirm 08/14/24 18:27 Sodium Chloride 0.9% 1000 Ml Administered 08/14/24 18:28 Dose 1,000 mls @ ud .ROUTE .STK-MED ONE Sodium Chloride Confirm 08/14/24 22:00 Sodium Chloride 100ml Mini-Bag Plus Administered 08/14/24 22:01 Dose 100 mls @ ud IV .STK-MED ONE Lorazepam 0.5 mg 08/14/24 17:21 08/14/24 17:27 Lorazepam 2 Mg/1 Ml 2 Mg Vial IV 08/14/24 17:22 0.5 mg STAT ONE Administration Lorazepam Confirm 08/14/24 17:24 Lorazepam 2 Mg/1 Ml 2 Mg Vial Administered 08/14/24 17:25 Dose 2 mg .ROUTE .STK-MED ONE Piperacillin Sod/Tazobactam Sod Confirm 08/14/24 22:00 Piperacillin/Tazobactam Sodium 3.375 Gm Vial Administered 08/14/24 22:01 Dose 3.375 gm IV .[facility] ONE Lab/Rad Data: Laboratory Result Diagrams 08/14/24 18:05 08/14/24 18:05 Laboratory Results 08/14/24 08/14/24 08/14/24 Range/Units 18:10 18:10 18:05 WBC (4.23-9.07) x10^3/uL RBC (4.63-6.08) x10^6/uL Hgb (13.7-17.5) g/dL Hct (40.1-51.0) % MCV (79.0-92.2) fL MCH (25.7-32.2) pg MCHC (32.3-36.5) g/dL RDW (11.6-14.4) % Plt Count (163-337) x10^3/uL MPV (9.4-12.4) fL Gran % (34.0-67.9) % Immature Gran % (Auto) (0.001-0.429) % Nucleat RBC Rel Count (0.00-0.2) % Eos # (Auto) (0.04-0.54) x10^3/uL Immature Gran # (Auto) (0.001-0.031) x10^3u/L Absolute Lymphs (auto) (1.32-3.57) x10^3/uL Absolute Monos (auto) (0.30-0.82) x10^3/uL Absolute Nucleated RBC (0.00-0.012) x10^3u/L Lymphocytes % (21.8-53.1) % Monocytes % (5.3-12.2) % Eosinophils % (0.8-7.0) % Basophils % (0.2-1.2) % Absolute Granulocytes (1.78-5.38) x10^3/uL Basophils # (0.01-0.08) x10^3/uL Sodium (135-145) mmol/L Potassium (3.5-5.1) mmol/L Chloride (98-107) mmol/L Carbon Dioxide (22-30) mmol/L Anion Gap (5-15) MEQ/L BUN (9-20) mg/dL Creatinine (0.66-1.25) mg/dL Estimated GFR ML/MIN Glucose (74-106) mg/dL Lactic Acid (0.4-2.0) Calcium (8.4-10.2) mg/dL Total Bilirubin (0.2-1.3) mg/dL AST (17-59) U/L ALT (0-50) U/L Alkaline Phosphatase (38-126) U/L Ammonia (9-30) umol/L Serum Total Protein (6.3-8.2) g/dL Albumin (3.5-5.0) g/dL Urine Color (Yellow) Urine Appearance (Clear) Urine pH (4.6-8.0) Ur Specific [place] (1.005-1.030) Urine Protein (Negative) Urine Glucose (UA) (Negative) mg/dL Urine Ketones (Negative) Urine Blood (Negative) Urine Nitrite (Negative) Urine Bilirubin (Negative) Urine Urobilinogen (0.2) mg/dL Ur Leukocyte Esterase (Negative) U Hyaline Cast (Auto) (0-2) /LPF Urine Microscopic RBC (0-5) /HPF Urine Microscopic WBC (0-5) /HPF Ur Epithelial Cells (None Seen) /HPF Urine Bacteria (None Seen) /HPF Urine Culture Reflexed (NO) Monoscreen POSITIVE (NEGATIVE) Influenza Type A Ag NEGATIVE (NEGATIVE) Influenza Type B Ag NEGATIVE (NEGATIVE) RSV (PCR) NEGATIVE (NEGATIVE) SARS-CoV-2 (PCR) NEGATIVE (NEGATIVE) Group A Strep Antibody NOT DETECTED (NEGATIVE) 08/14/24 08/14/24 08/14/24 Range/Units 18:05 18:05 18:05 WBC 9.9 H (4.23-9.07) x10^3/uL RBC 3.40 L (4.63-6.08) x10^6/uL Hgb 9.6 L (13.7-17.5) g/dL Hct 30.1 L (40.1-51.0) % MCV 88.5 (79.0-92.2) fL MCH 28.2 (25.7-32.2) pg MCHC 31.9 L (32.3-36.5) g/dL RDW 13.9 (11.6-14.4) % Plt Count 192 (163-337) x10^3/uL MPV 10.0 (9.4-12.4) fL Gran % 58.7 (34.0-67.9) % Immature Gran % (Auto) 0.3 (0.001-0.429) % Nucleat RBC Rel Count 0.0 (0.00-0.2) % Eos # (Auto) 0.23 (0.04-0.54) x10^3/uL Immature Gran # (Auto) 0.03 (0.001-0.031) x10^3u/L Absolute Lymphs (auto) 2.92 (1.32-3.57) x10^3/uL Absolute Monos (auto) 0.86 H (0.30-0.82) x10^3/uL Absolute Nucleated RBC 0.00 (0.00-0.012) x10^3u/L Lymphocytes % 29.6 (21.8-53.1) % Monocytes % 8.7 (5.3-12.2) % Eosinophils % 2.3 (0.8-7.0) % Basophils % 0.4 (0.2-1.2) % Absolute Granulocytes 5.80 H (1.78-5.38) x10^3/uL Basophils # 0.04 (0.01-0.08) x10^3/uL Sodium 135 (135-145) mmol/L Potassium 4.3 (3.5-5.1) mmol/L Chloride 104 (98-107) mmol/L Carbon Dioxide 25 (22-30) mmol/L Anion Gap 10.5 (5-15) MEQ/L BUN 36 H (9-20) mg/dL Creatinine 1.10 (0.66-1.25) mg/dL Estimated GFR 69.6 ML/MIN Glucose 127 H (74-106) mg/dL Lactic Acid (0.4-2.0) Calcium 8.8 (8.4-10.2) mg/dL Total Bilirubin 0.80 (0.2-1.3) mg/dL AST 41 (17-59) U/L ALT 16 (0-50) U/L Alkaline Phosphatase 78 (38-126) U/L Ammonia < 9 L (9-30) umol/L Serum Total Protein 6.1 L (6.3-8.2) g/dL Albumin 3.2 L (3.5-5.0) g/dL Urine Color (Yellow) Urine Appearance (Clear) Urine pH (4.6-8.0) Ur Specific [place] (1.005-1.030) Urine Protein (Negative) Urine Glucose (UA) (Negative) mg/dL Urine Ketones (Negative) Urine Blood (Negative) Urine Nitrite (Negative) Urine Bilirubin (Negative) Urine Urobilinogen (0.2) mg/dL Ur Leukocyte Esterase (Negative) U Hyaline Cast (Auto) (0-2) /LPF Urine Microscopic RBC (0-5) /HPF Urine Microscopic WBC (0-5) /HPF Ur Epithelial Cells (None Seen) /HPF Urine Bacteria (None Seen) /HPF Urine Culture Reflexed (NO) Monoscreen (NEGATIVE) Influenza Type A Ag (NEGATIVE) Influenza Type B Ag (NEGATIVE) RSV (PCR) (NEGATIVE) SARS-CoV-2 (PCR) (NEGATIVE) Group A Strep Antibody (NEGATIVE) 08/14/24 08/14/24 Range/Units 17:50 17:33 WBC (4.23-9.07) x10^3/uL RBC (4.63-6.08) x10^6/uL Hgb (13.7-17.5) g/dL Hct (40.1-51.0) % MCV (79.0-92.2) fL MCH (25.7-32.2) pg MCHC (32.3-36.5) g/dL RDW (11.6-14.4) % Plt Count (163-337) x10^3/uL MPV (9.4-12.4) fL Gran % (34.0-67.9) % Immature Gran % (Auto) (0.001-0.429) % Nucleat RBC Rel Count (0.00-0.2) % Eos # (Auto) (0.04-0.54) x10^3/uL Immature Gran # (Auto) (0.001-0.031) x10^3u/L Absolute Lymphs (auto) (1.32-3.57) x10^3/uL Absolute Monos (auto) (0.30-0.82) x10^3/uL Absolute Nucleated RBC (0.00-0.012) x10^3u/L Lymphocytes % (21.8-53.1) % Monocytes % (5.3-12.2) % Eosinophils % (0.8-7.0) % Basophils % (0.2-1.2) % Absolute Granulocytes (1.78-5.38) x10^3/uL Basophils # (0.01-0.08) x10^3/uL Sodium (135-145) mmol/L Potassium (3.5-5.1) mmol/L Chloride (98-107) mmol/L Carbon Dioxide (22-30) mmol/L Anion Gap (5-15) MEQ/L BUN (9-20) mg/dL Creatinine (0.66-1.25) mg/dL Estimated GFR ML/MIN Glucose (74-106) mg/dL Lactic Acid 1.9 (0.4-2.0) Calcium (8.4-10.2) mg/dL Total Bilirubin (0.2-1.3) mg/dL AST (17-59) U/L ALT (0-50) U/L Alkaline Phosphatase (38-126) U/L Ammonia (9-30) umol/L Serum Total Protein (6.3-8.2) g/dL Albumin (3.5-5.0) g/dL Urine Color Yellow (Yellow) Urine Appearance Clear (Clear) Urine pH 5.5 (4.6-8.0) Ur Specific [place] 1.015 (1.005-1.030) Urine Protein Negative (Negative) Urine Glucose (UA) Negative (Negative) mg/dL Urine Ketones Negative (Negative) Urine Blood Negative (Negative) Urine Nitrite Negative (Negative) Urine Bilirubin Negative (Negative) Urine Urobilinogen 0.2 (0.2) mg/dL Ur Leukocyte Esterase Negative (Negative) U Hyaline Cast (Auto) NONE SEEN (0-2) /LPF Urine Microscopic RBC 0-2 (0-5) /HPF Urine Microscopic WBC 0-2 (0-5) /HPF Ur Epithelial Cells None Seen (None Seen) /HPF Urine Bacteria None Seen (None Seen) /HPF Urine Culture Reflexed ORDERED SEPARATELY (NO) Monoscreen (NEGATIVE) Influenza Type A Ag (NEGATIVE) Influenza Type B Ag (NEGATIVE) RSV (PCR) (NEGATIVE) SARS-CoV-2 (PCR) (NEGATIVE) Group A Strep Antibody (NEGATIVE) - Progress Progress: unchanged, re-examined Progress Note: 08/14/24 17:56 My medical decision making and the assignment of moderate to high complexity of this patient's medical issue today is based on review of the patient's past medical history, review of the patient's medication list, reviewed patient drug allergy list, history present illness and physical findings on examination. The workup in this patient includes CT scan of the head, face and cervical spine as well as the abdomen. In addition, place intravenous line, infusion normal saline solution, CBC, CMP, ammonia level, urinalysis, Mott catheter placement, lactic acid level, blood cultures. Attempt was made to take the patient down to the CT scan suite and radiology department. However, they were only able to complete the CT scan of the head. There is concerned that there was motion artifact and we are awaiting the results of the CT scan of the head report from the radiologist. Patient was having pain in the area of his decubitus ulcer with laying flat so we could not complete the other studies but will reattempt here shortly. Differential diagnosis includes but is not limited to acute intracranial abnorma lity, cervical spine injury, facial bone injury, acute intra-abdominal/pelvic abnormality, decubitus ulcer sepsis site, urosepsis 08/14/24 22:05 I interpreted the patient's laboratory data results. Based on the laboratory data results, there appears to be mild leukocytosis with a left shift. Patient does have anemia with a hemoglobin 9.6. The patient also has a positive monotest. Lactic acid is normal. Anion gap is normal. Patient's CMP does not appear to be significantly abnormal. CT scan performed were all without contrast and they were all interpreted by the radiologist. The impressions read as follows: CT scan of the head without contrast shows involutional brain changes with small vessel ischemic changes. No evidence of acute infarction, hemorrhage or mass effect. CT scan of the cervical spine without contrast shows no evidence of acute fracture or subluxation. There is advanced cervical spondylotic changes. CT scan of the facial bones without contrast shows no acute fractures. There is a suggestion of cleft palate. There is a deviated septum present. There is left orbital preseptal lipoma present. CT scan of the abdomen pelvis without contrast shows thick-walled urinary bladder with Mott in place. Possible cystitis. There is mild prostatomegaly. Uncomplicated diverticulosis is present. No significant change from similar study dated 07/22/2024. 08/14/24 22:21 I spoke with the telehospitalist Dr. Schmidt. I reviewed the patient history, presenting complaint, physical findings on exam, workup performed and results. The patient is still fairly lethargic. His systolic blood pressures were low when he presented to the emergency department. He has a decubitus ulcer wound that is open and bathed in stool upon arrival to the emergency department. He does have anemia and test positive for mononucleosis. The telehospitalist and I agree to place him in observation and I will provide him with low rate IV fluids, repeat labs in the morning. Discussed with : Chelsea Counseled pt/family regarding: lab results, diagnosis, need for follow-up, rad results Medical Desision Making - Independent Historian Additional History obtained from: [facility]/EMT - External Record(s) Reviewed Records reviewed as a part of evaluation & management: Inpatient, Discharge Summary, shelter, EMS - Discussion of managment Care discussed with:: hospitalist Reviewed:: Test results, Need for additional workup Agreed on:: place in obs Will see patient: in hospital - Diagnostic Testing Diagnostic test were ordered, analyzed, and reviewed by me: Yes Radiological Interpretation: Reviewed by me - Risk of complications The pt has a high risk of morbidity or mortality based on: Decision regarding hospitilization or escalation of hosp level of care - Departure Departure Disposition: Observation Clinical Impression: Lethargy, Anemia, Mononucleosis, Decubitus ulcer Condition: Fair Critical Care Time: No Referrals: LENA DUGGAN MD [Primary Care Provider] - Follow up/PCP as directed
[2024-08-14] MEDS ORDERED: Ativan 2 MG/1 ML VIAL ONE (17:24)
[2024-08-14] MEDS: Ativan 2 MG/1 ML VIAL IV ONE (17:27)
[2024-08-14 18:20] LABS: BASOPHIL % 0.4 % (0.2-1.2); Basophil (Absolute #) 0.04 x10^3/uL (0.01-0.08); Eosinophil % 2.3 % (0.8-7.0); Eosinophil (Absolute #) 0.23 x10^3/uL (0.04-0.54); Hematocrit 30.1 % (40.1-51.0); Hemoglobin 9.6 g/dL (13.7-17.5); IMMATURE GRAN # 0.03 x10^3u/L (0.001-0.031); IMMATURE GRAN % 0.3 % (0.001-0.429); Lymphocyte (Absolute #) 2.92 x10^3/uL (1.32-3.57); Lymphocytes % 29.6 % (21.8-53.1); Mean Cell Volume 88.5 fL (79.0-92.2); Mean Corpuscular Hemoglobin 28.2 pg (25.7-32.2); Mean Corpuscular Hgb Concent. 31.9 g/dL (32.3-36.5); Monocyte (Absolute #) 0.86 x10^3/uL (0.30-0.82); Monocytes % 8.7 % (5.3-12.2); Neutrophil % 58.7 % (34.0-67.9); Platelet Count 192 x10^3/uL (163-337); Red Cell Distribution Width 13.9 % (11.6-14.4); White Blood Count 9.9 x10^3/uL (4.23-9.07)
--- NOTE | 2024-08-14 18:22 | XRAY ---
CLINICAL HISTORY: Fall injury COMPARISON: None. TECHNIQUE: Axial non-contrast CT scan of the brain was performed from the skull base to the high parietal region. One of the following dose reduction techniques were utilized for this exam: Automated exposure control, adjustment of the mA and/or kV according to patient size, use of iterative reconstruction. FINDINGS: Truncated right frontal region, underlying local pathology cannot be excluded. Correlate clinically. Brain Parenchyma: Normal attenuation of the cerebellum, and brainstem. No evidence of acute infarct, hemorrhage, or mass effect. Accentuated bilateral periventricular white matter hypodensity with ill-defined hypodensities at the parietal subcortical white matter on both sides. Ventricular System: Ventricles are prominent. Subarachnoid Spaces: Normal sulci and cisterns. No evidence of subarachnoid hemorrhage or extra-axial fluid collections. Cerebellum and Brainstem: Normal size and signal. No masses, lesions, or areas of abnormal signal. Orbits: Normal appearance of the globes, optic nerves, and extraocular muscles. No evidence of orbital masses or abnormal signal. Sinuses: Clear paranasal sinuses. No evidence of sinusitis or mucosal thickening. Left side deviation of the nasal septum. Mastoid Air Cells: Clear mastoid air cells. No evidence of mastoiditis. Skull and Meninges: Normal morphology of the visualized part of the skull. IMPRESSION: 1. Involutional brain changes. 2. Small vessel ischemic changes. Electronically Signed by: Olivia Muhammad MD. (08/14/2024 18:18:14 EST)
[2024-08-14] MEDS ORDERED: Sodium Chloride 0.9% 1000 ML 1,000 ML ONE (18:27)
[2024-08-14] MEDS: Sodium Chloride 0.9% 1000 ML 1,000 ML IV STA (18:28)
[2024-08-14 18:31] LABS: ALBUMIN 3.2 g/dL (3.5-5.0); ANION GAP 10.5 MEQ/L (5-15); BILIRUBIN,TOTAL 0.8 mg/dL (0.2-1.3); Calcium 8.8 mg/dL (8.4-10.2); Creatinine 1 1.1 mg/dL (0.66-1.25); EST GLOMERULAR FILTRATION RATE 69.6 ML/MIN; Potassium 4.3 mmol/L (3.5-5.1); Total Protein 6.1 g/dL (6.3-8.2)
[2024-08-14 18:33] LABS: Appearance Clear (Clear); Bacteria None Seen /HPF (None Seen); Bilirubin Negative (Negative); Blood Negative (Negative); Epithelial Cells None Seen /HPF (None Seen); Glucose, Urine Negative (Negative); Hyaline Casts NONE SEEN /LPF (0-2); Ketones Negative (Negative); Leukocyte Esterase Negative (Negative); Nitrite Negative (Negative); Ph 5.5 (4.6-8.0); Protein,Urine Dip Negative (Negative); RBC 0-2 /HPF (0-5); Specific Gravity 1.015 (1.005-1.030); Urobilinogen 0.2 mg/dL (0.2); WBC 0-2 /HPF (0-5)
[2024-08-14 19:34] LABS: INFLUENZA A NEGATIVE (NEGATIVE); INFLUENZA B NEGATIVE (NEGATIVE); RESPIRATORY SYNCTIAL VIRUS NEGATIVE (NEGATIVE); SARS-CoV-2 Xpert Express NEGATIVE (NEGATIVE)
--- NOTE | 2024-08-14 21:26 | XRAY ---
CLINICAL HISTORY: Diarrhea COMPARISON: CT dated 07/22/2024. TECHNIQUE: CT of the abdomen and pelvis was performed, with the following protocol: axial images, and reconstructed coronal and sagittal images. No intravenous contrast was administered. One of the following dose reduction techniques was utilized for this exam: Automated exposure control, adjustment of the mA and/or kV according to patient size, and use of iterative reconstruction. FINDINGS: Sections of the lower thorax show mild subpleural fibrotic changes with a 7 x 4 mm pleural-based nodule in the right lower lobe. Abdomen: Liver: Normal in size, and density. No focal lesions, cysts, or masses were identified. Gallbladder and Biliary System: The gallbladder is normal in size and shape. No wall thickening, pericholecystic fluid, or gallstones were identified. Pancreas: Pancreatic head, body, and tail are visualized and appear normal in size and density. No pancreatic masses or calcifications were noted. Spleen: Normal in size, shape, and density. No splenic lesions or masses were identified. Kidneys and Adrenal Glands: Both kidneys are normal in size, shape, and position. No renal calculi or hydronephrosis. Adrenal glands are unremarkable. Pelvis: Urinary Bladder: Mott's catheter in the urinary bladder appears to be a thick-walled urinary bladder, despite suboptimal distention, and possible cystitis. Clinical and laboratory correlation is advised. The prostate is mildly enlarged in size with parenchymal calcifications. Peritoneal and Retroperitoneal Structures: No free fluid or abnormal fluid collections were identified within the abdomen or pelvis. The abdominal aorta and its major branches show heavy atherosclerotic changes with calcified plaques. Bowel: Uncomplicated colonic diverticulosis noted. The bowel loops otherwise appear unremarkable. Fecal loading in the rectum was noted. The appendix appears unremarkable. Bones and Soft Tissues: Degenerative changes in lumbar spine. Mild grade I anterolisthesis of L4 over L5. Divarication of recti with small umbilical hernia noted. IMPRESSION: 1. Mott's catheter in the urinary bladder appears to be a thick-walled urinary bladder, despite suboptimal distention, and possible cystitis. Clinical and laboratory correlation is advised. 2. Mild prostatomegaly. 3. Uncomplicated colonic diverticulosis. 4. No significant interval changes. Electronically Signed by: Olivia Muhammad MD. (08/14/2024 21:22:04 EST)
--- NOTE | 2024-08-14 21:40 | XRAY ---
CLINICAL HISTORY: Fall injury COMPARISON: None. TECHNIQUE: Non-Contrast CT scan of the maxiallofacial was performed, with sagittal and coronal multiplanar reconstruction. One of the following dose reduction techniques was utilized for this exam: Automated exposure control, adjustment of the mA and/or kV according to patient size, and use of iterative reconstruction. FINDINGS: Sinuses: All paranasal sinuses are clear. No evidence of sinusitis, mucosal thickening, or fluid levels. Osteomeatal complexes are patent. Nasal Cavity: No masses or polyps. Deviated nasal septum towards left side with bone spur indenting medial wall of left maxillary sinus. Orbits: Orbits are normal in size and shape. Extraocular muscles and optic nerves are normal. No evidence of proptosis. 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 Maxilla and Mandible: Linear osseous defect at left paramidline plane of maxillary alveolar process with smooth bone edges and no associated soft tissue swelling, suggestive of cleft palate. Normal appearance of the mandibular bones. No acute fractures, lytic or sclerotic lesions. Normal dentition without significant periodontal disease. Facial Bones: No fractures or deformities. Zygomatic arches, nasal bones, and other facial structures are intact. Soft Tissues: Soft tissues of the face are normal. No abnormal masses, swelling, or lymphadenopathy. Salivary Glands: Parotid, submandibular, and sublingual glands are normal. No evidence of sialadenitis or masses. Temporomandibular Joints (TMJ): Normal appearance of the TMJ bilaterally. No evidence of joint effusion, degenerative changes, or dislocation. IMPRESSION: 1. No acute fractures identified. 2. Linear osseous defect at left paramidline plane of maxillary alveolar process with smooth bone edges and no associated soft tissue swelling, suggestive of cleft palate. 3. Deviated nasal septum towards left side with bone spur indenting medial wall of left maxillary sinus. 4. 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 Electronically Signed by: Olivia Muhammad MD. (08/14/2024 21:35:14 EST)
--- NOTE | 2024-08-14 21:56 | XRAY ---
CLINICAL HISTORY: Fall injury COMPARISON: No previous studies are available for comparison. TECHNIQUE: A CT scan of the cervical spine was performed without the administration of intravenous contrast. Contiguous axial images were obtained from the skull base to the upper thoracic spine. Coronal and sagittal reformatted images were also reviewed. One of the following dose-reduction techniques was utilized for this exam. Automated exposure control, adjustment of the mA and/or kV according to patient size, and use of iterative reconstruction. FINDINGS: Vertebrae: Straightening with mild reversal of curvature is noted. Grade 1 mild anterolisthesis is noted at C2-C3 and C4-C5 levels. The vertebral bodies are normal in height. No evidence of acute fracture or dislocation. Osteopenic bones. No signs of lytic or sclerotic lesions. Normal configuration of the posterior elements. Advanced spondylotic changes. Intervertebral Discs: The intervertebral disc spaces are narrowed. Facet Joints: The facet joints are normal without evidence of dislocation, or subluxation. Advanced degenerative changes are noted in the bilateral facet joints. Neural Foramina: Multilevel bilateral neural foraminal stenosis is noted. Prevertebral Soft Tissues: The prevertebral soft tissues are normal in thickness without evidence of mass or abnormal fluid collection. IMPRESSION: 1. No evidence of acute fracture or dislocation. 2. Advanced cervical spondylotic changes. 3. Reversal of cervical curvature with grade 1 anterolisthesis at C2-C3 and C4-C5 levels. 4. Further evaluation with MRI cervical spine is advised for detailed description if clinically needed. Electronically Signed by: Olivia Muhammad MD. (08/14/2024 21:53:05 EST)
[2024-08-14] MEDS ORDERED: Sodium Chloride 100ML MINI-BAG PLUS 100 ML IV ONE (22:00)
[2024-08-14] MEDS ORDERED: PIPERACILLIN/TAZOBACTAM IV ONE (22:00)
[2024-08-14] MEDS: PIPERACILLIN/TAZOBACTAM 3.375 GM in Sodium Chloride 100ML MINI-BAG PLUS 100 ML IV ONE (22:01)
[2024-08-14] MEDS ORDERED: Zofran 4 MG/2 ML VIAL IV PRN (23:01)
[2024-08-14 23:48] VITALS: O2SAT 94
[2024-08-15] MEDS: Sodium Chloride 0.9% 1000 ML 1,000 ML IV SCH (01:08)
[2024-08-15] MEDS: TYLENOL 325 MG PO PRN (03:11)
[2024-08-15] MEDS ORDERED: HUMALOG SQ PRN (03:46)
--- NOTE | 2024-08-15 03:55 | PCM.HP ---
History of Present Illness - Chief Complaint Chief Complaint: Lethargy Date: 08/14/24 History of Present Illness: 78-year-old man with history of hypertension, diabetes, Parkinson disease, osteoarthritis, dyslipidemia, and decubitus ulcer, here with lethargy. Of note, history is limited as patient is lethargic and unable to answer any questions. Reportedly, he was sent from the [facility] after a possible unwitnessed fall with trauma to the head and face. However, ED physician reports that patient briefly awoke and denied any fall or trauma. No evidence of trauma on exam. Patient is unable to answer any questions for me. Workup in the ED was unrevealing for any obvious source. - Review of Systems All Other Systems: Unable due to condition Medications & Allergies Home Medications: Home Medication List lisinopriL [Zestril] 40 mg PO DAILY 12/11/15 [History Confirmed 08/14/24] Atorvastatin Calcium [Lipitor] 80 mg PO DAILY 06/09/19 [History Confirmed 08/14/24] Ezetimibe 10 mg PO DAILY 06/09/19 [History Confirmed 08/14/24] Metformin HCl 500 mg [Glucophage 500 MG] 500 mg PO DAILY 06/09/19 [History Confirmed 08/14/24] Carbidopa/Levodopa [Carbidopa-Levodopa 25-100 Tab] 2 tab PO 0600 01/15/24 [History Confirmed 08/14/24] Metoprolol Tartrate 25 mg [Lopressor 25MG Tab] 50 mg PO DAILY 01/15/24 [History Confirmed 08/14/24] Carbidopa/Levodopa 25/100 mg [Sinemet 25/100 MG] 1 tab PO 1200 07/21/24 [History Confirmed 08/14/24] Furosemide 40 mg [Lasix 40 MG] 40 mg PO DAILY 08/14/24 [History Confirmed 08/14/24] Hydrocodone/Acetaminophen [Cameron 10-325 mg] 1 tab PO DAILY PRN 08/14/24 [History Confirmed 08/14/24] Potassium Chloride 10 meq PO DAILY 08/14/24 [History Confirmed 08/14/24] Allergies/Adverse Reactions: Allergies Allergy/AdvReac Type Severity Reaction Status Date / Time No Known Drug Allergies Allergy Verified 07/21/24 07:00 - Past Medical History Past Medical History: Yes Neurological History: Other ENT History: No Pertinent History Cardiac History: High Cholesterol, Hypertension Respiratory History: No Pertinent History Endocrine Medical History: Diabetes Type II Musculoskelatal History: Osteoarthritis, Other GI Medical History: No Pertinent History History: No Pertinent History Pyscho-Social History: No Pertinent History Male Reproductive Disorders: No Pertinent History Comment: SX HX; LEFT KNEE REPLACEMENT YEARS AGO, 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 PARKINSON'S - Past Surgical History Past Surgical History: Yes Neuro Surgical History: No Pertinent History Cardiac History: No Pertinent History Respiratory Surgery: No Pertinent History GI Surgical History: No Pertinent History Genitourinary Surgical Hx: No Pertinent History Musculskeletal Surgical Hx: Amputation, Orthopedic Surgery Other Surgical History: TOTAL CLEFT PALATE REPAIR. , finger amputation,left knee joint replacement Family History: Unable to be obtained due to mental status - Social History Smoking Status: Never smoker Exposure to second hand smoke: No Alcohol: None Drug Use: none - Social Determinants of Health Will the patient participate in the screening: Yes Do you worry about a steady place to live?: No Do you have any problems with any of the following?: No known problems In the past 12 months,have you had to go without utilities?: No Have you or anyone in your house had to go without enough: No Transportation Issues: No Has anyone in your support network made you feel unsafe?: No Does the patient want assistance with any of the above?: No - Physical Exam Vital Signs: Vital Signs - 24 hr Temp Pulse Resp BP BP Pulse Ox 08/15/24 00:00 94 L 08/14/24 23:22 97.3 F 86 22 127/60 94 L 08/14/24 22:01 98.6 F 54 L 20 129/61 92 L 08/14/24 21:31 100/60 91 L 08/14/24 21:00 98.8 F 78 20 84/50 94 L 08/14/24 20:40 124/56 97 08/14/24 20:00 74 16 114/45 95 08/14/24 19:30 84 18 111/50 96 08/14/24 19:00 78 16 106/51 96 08/14/24 18:30 72 19 103/49 92 L 08/14/24 18:23 96 08/14/24 18:16 77 13 93/49 81 L 08/14/24 18:10 77 22 08/14/24 18:00 99.5 F 79 22 103/59 94 L 08/14/24 17:59 90 08/14/24 17:00 79 17 08/14/24 16:50 72 15 08/14/24 16:40 78 13 08/14/24 16:33 86 22 08/14/24 16:00 94 H 21 99/42 95 08/14/24 15:30 74 19 90/53 94 L 08/14/24 15:04 98.6 F 90 22 98/49 96 08/14/24 15:00 77 15 98/49 94 L General Appearance: no apparent distress, lethargy Neurologic Exam: other (Unable to fully assess. Patient arouses briefly to painful stimuli but not answering any questions or following any commands for me.) Eye Exam: No scleral icterus, No pale conjunctivae Ears, Nose, Throat Exam: moist mucous membranes Neck Exam: full range of motion Respiratory Exam: normal breath sounds, lungs clear, other (On room air), No respiratory distress Cardiovascular Exam: regular rate/rhythm, normal heart sounds, No edema Gastrointestinal/Abdomen Exam: No tenderness, No distention Back Exam: normal inspection Extremity Exam: No joint swelling, No pedal edema Skin Exam: decubitus (Ulcer, still present on report by ED physician, but no signs of infection, and per nursing, appears improved from recent discharge.) Results - Labs Lab/Micro Results: Lab Results-Last 24 Hours 08/14/24 08/14/24 08/14/24 Range/Units 17:33 17:50 18:05 WBC 9.9 H (4.23-9.07) x10^3/uL RBC 3.40 L (4.63-6.08) x10^6/uL Hgb 9.6 L (13.7-17.5) g/dL Hct 30.1 L (40.1-51.0) % MCV 88.5 (79.0-92.2) fL MCH 28.2 (25.7-32.2) pg MCHC 31.9 L (32.3-36.5) g/dL RDW 13.9 (11.6-14.4) % Plt Count 192 (163-337) x10^3/uL MPV 10.0 (9.4-12.4) fL Gran % 58.7 (34.0-67.9) % Immature Gran % (Auto) 0.3 (0.001-0.429) % Nucleat RBC Rel Count 0.0 (0.00-0.2) % Eos # (Auto) 0.23 (0.04-0.54) x10^3/uL Immature Gran # (Auto) 0.03 (0.001-0.031) x10^3u/L Absolute Lymphs (auto) 2.92 (1.32-3.57) x10^3/uL Absolute Monos (auto) 0.86 H (0.30-0.82) x10^3/uL Absolute Nucleated RBC 0.00 (0.00-0.012) x10^3u/L Lymphocytes % 29.6 (21.8-53.1) % Monocytes % 8.7 (5.3-12.2) % Eosinophils % 2.3 (0.8-7.0) % Basophils % 0.4 (0.2-1.2) % Absolute Granulocytes 5.80 H (1.78-5.38) x10^3/uL Basophils # 0.04 (0.01-0.08) x10^3/uL Sodium (135-145) mmol/L Potassium (3.5-5.1) mmol/L Chloride (98-107) mmol/L Carbon Dioxide (22-30) mmol/L Anion Gap (5-15) MEQ/L BUN (9-20) mg/dL Creatinine (0.66-1.25) mg/dL Estimated GFR ML/MIN Glucose (74-106) mg/dL Lactic Acid 1.9 (0.4-2.0) Calcium (8.4-10.2) mg/dL Total Bilirubin (0.2-1.3) mg/dL AST (17-59) U/L ALT (0-50) U/L Alkaline Phosphatase (38-126) U/L Ammonia (9-30) umol/L Serum Total Protein (6.3-8.2) g/dL Albumin (3.5-5.0) g/dL Urine Color Yellow (Yellow) Urine Appearance Clear (Clear) Urine pH 5.5 (4.6-8.0) Ur Specific [place] 1.015 (1.005-1.030) Urine Protein Negative (Negative) Urine Glucose (UA) Negative (Negative) mg/dL Urine Ketones Negative (Negative) Urine Blood Negative (Negative) Urine Nitrite Negative (Negative) Urine Bilirubin Negative (Negative) Urine Urobilinogen 0.2 (0.2) mg/dL Ur Leukocyte Esterase Negative (Negative) U Hyaline Cast (Auto) NONE SEEN (0-2) /LPF Urine Microscopic RBC 0-2 (0-5) /HPF Urine Microscopic WBC 0-2 (0-5) /HPF Ur Epithelial Cells None Seen (None Seen) /HPF Urine Bacteria None Seen (None Seen) /HPF Urine Culture Reflexed ORDERED SEPARATELY (NO) Monoscreen (NEGATIVE) Influenza Type A Ag (NEGATIVE) Influenza Type B Ag (NEGATIVE) RSV (PCR) (NEGATIVE) SARS-CoV-2 (PCR) (NEGATIVE) Group A Strep Antibody (NEGATIVE) 08/14/24 08/14/24 08/14/24 Range/Units 18:05 18:05 18:05 WBC (4.23-9.07) x10^3/uL RBC (4.63-6.08) x10^6/uL Hgb (13.7-17.5) g/dL Hct (40.1-51.0) % MCV (79.0-92.2) fL MCH (25.7-32.2) pg MCHC (32.3-36.5) g/dL RDW (11.6-14.4) % Plt Count (163-337) x10^3/uL MPV (9.4-12.4) fL Gran % (34.0-67.9) % Immature Gran % (Auto) (0.001-0.429) % Nucleat RBC Rel Count (0.00-0.2) % Eos # (Auto) (0.04-0.54) x10^3/uL Immature Gran # (Auto) (0.001-0.031) x10^3u/L Absolute Lymphs (auto) (1.32-3.57) x10^3/uL Absolute Monos (auto) (0.30-0.82) x10^3/uL Absolute Nucleated RBC (0.00-0.012) x10^3u/L Lymphocytes % (21.8-53.1) % Monocytes % (5.3-12.2) % Eosinophils % (0.8-7.0) % Basophils % (0.2-1.2) % Absolute Granulocytes (1.78-5.38) x10^3/uL Basophils # (0.01-0.08) x10^3/uL Sodium 135 (135-145) mmol/L Potassium 4.3 (3.5-5.1) mmol/L Chloride 104 (98-107) mmol/L Carbon Dioxide 25 (22-30) mmol/L Anion Gap 10.5 (5-15) MEQ/L BUN 36 H (9-20) mg/dL Creatinine 1.10 (0.66-1.25) mg/dL Estimated GFR 69.6 ML/MIN Glucose 127 H (74-106) mg/dL Lactic Acid (0.4-2.0) Calcium 8.8 (8.4-10.2) mg/dL Total Bilirubin 0.80 (0.2-1.3) mg/dL AST 41 (17-59) U/L ALT 16 (0-50) U/L Alkaline Phosphatase 78 (38-126) U/L Ammonia < 9 L (9-30) umol/L Serum Total Protein 6.1 L (6.3-8.2) g/dL Albumin 3.2 L (3.5-5.0) g/dL Urine Color (Yellow) Urine Appearance (Clear) Urine pH (4.6-8.0) Ur Specific [place] (1.005-1.030) Urine Protein (Negative) Urine Glucose (UA) (Negative) mg/dL Urine Ketones (Negative) Urine Blood (Negative) Urine Nitrite (Negative) Urine Bilirubin (Negative) Urine Urobilinogen (0.2) mg/dL Ur Leukocyte Esterase (Negative) U Hyaline Cast (Auto) (0-2) /LPF Urine Microscopic RBC (0-5) /HPF Urine Microscopic WBC (0-5) /HPF Ur Epithelial Cells (None Seen) /HPF Urine Bacteria (None Seen) /HPF Urine Culture Reflexed (NO) Monoscreen POSITIVE (NEGATIVE) Influenza Type A Ag (NEGATIVE) Influenza Type B Ag (NEGATIVE) RSV (PCR) (NEGATIVE) SARS-CoV-2 (PCR) (NEGATIVE) Group A Strep Antibody (NEGATIVE) 08/14/24 08/14/24 Range/Units 18:10 18:10 WBC (4.23-9.07) x10^3/uL RBC (4.63-6.08) x10^6/uL Hgb (13.7-17.5) g/dL Hct (40.1-51.0) % MCV (79.0-92.2) fL MCH (25.7-32.2) pg MCHC (32.3-36.5) g/dL RDW (11.6-14.4) % Plt Count (163-337) x10^3/uL MPV (9.4-12.4) fL Gran % (34.0-67.9) % Immature Gran % (Auto) (0.001-0.429) % Nucleat RBC Rel Count (0.00-0.2) % Eos # (Auto) (0.04-0.54) x10^3/uL Immature Gran # (Auto) (0.001-0.031) x10^3u/L Absolute Lymphs (auto) (1.32-3.57) x10^3/uL Absolute Monos (auto) (0.30-0.82) x10^3/uL Absolute Nucleated RBC (0.00-0.012) x10^3u/L Lymphocytes % (21.8-53.1) % Monocytes % (5.3-12.2) % Eosinophils % (0.8-7.0) % Basophils % (0.2-1.2) % Absolute Granulocytes (1.78-5.38) x10^3/uL Basophils # (0.01-0.08) x10^3/uL Sodium (135-145) mmol/L Potassium (3.5-5.1) mmol/L Chloride (98-107) mmol/L Carbon Dioxide (22-30) mmol/L Anion Gap (5-15) MEQ/L BUN (9-20) mg/dL Creatinine (0.66-1.25) mg/dL Estimated GFR ML/MIN Glucose (74-106) mg/dL Lactic Acid (0.4-2.0) Calcium (8.4-10.2) mg/dL Total Bilirubin (0.2-1.3) mg/dL AST (17-59) U/L ALT (0-50) U/L Alkaline Phosphatase (38-126) U/L Ammonia (9-30) umol/L Serum Total Protein (6.3-8.2) g/dL Albumin (3.5-5.0) g/dL Urine Color (Yellow) Urine Appearance (Clear) Urine pH (4.6-8.0) Ur Specific [place] (1.005-1.030) Urine Protein (Negative) Urine Glucose (UA) (Negative) mg/dL Urine Ketones (Negative) Urine Blood (Negative) Urine Nitrite (Negative) Urine Bilirubin (Negative) Urine Urobilinogen (0.2) mg/dL Ur Leukocyte Esterase (Negative) U Hyaline Cast (Auto) (0-2) /LPF Urine Microscopic RBC (0-5) /HPF Urine Microscopic WBC (0-5) /HPF Ur Epithelial Cells (None Seen) /HPF Urine Bacteria (None Seen) /HPF Urine Culture Reflexed (NO) Monoscreen (NEGATIVE) Influenza Type A Ag NEGATIVE (NEGATIVE) Influenza Type B Ag NEGATIVE (NEGATIVE) RSV (PCR) NEGATIVE (NEGATIVE) SARS-CoV-2 (PCR) NEGATIVE (NEGATIVE) Group A Strep Antibody NOT DETECTED (NEGATIVE) - Radiology Impressions Radiology Exams & Impressions: Radiology Procedures Category Date Time Status ABDOMEN AND PELVIS W/0 CONTRAS [CT] Stat Exams 08/14/24 20:22 Completed CERVICAL SPINE WO CONTRAST [CT] Stat Exams 08/14/24 16:40 Completed FACIAL BONES WO CONTRAST [CT] Stat Exams 08/14/24 16:40 Completed HEAD WITHOUT CONTRAST [CT] Stat Exams 08/14/24 16:[address] head small vessel ischemic changes. But no evidence of acute infarct, hemorrhage, or mass effect CT face no acute fractures. Possible cleft palate. Deviated nasal septum to the left side indenting medial wall of left maxillary sinus. Left orbital preseptal lipoma. CT C-spine no acute fracture or dislocation. CT abdomen/pelvis Mott catheter with possible thick-walled urinary bladder despite suboptimal distention. Mild prostatomegaly. Uncomplicated colonic diverticulosis. But no significant changes from previous. Assessment/Plan (1) Lethargy Current Visit: Yes Status: Acute Assessment & Plan: 78-year-old man with history of hypertension, diabetes, Parkinson disease, dyslipidemia, and decubitus ulcer, here with extreme lethargy. ## Lethargy etiology is unclear. Workup in the ED is unrevealing. No evidence of trauma to head or face on imaging. The only positive result is a Monospot test ordered for unclear reasons. However, this is nonspecific, and difficult to associate with any typical symptoms as patient is unable to answer any questions. Although patient has no risk factors, we have not assessed for hypercarbia. However, no evidence of infection including no acute cystitis on UA despite possible thick bladder wall seen on CT abdomen. Check arterial blood gas Order EBV specific acute antibodies (acute infection confirmed with IgM to viral capsid with negative IgG to nuclear antigen) If infectious mononucleosis is confirmed, no need for anything other than supportive treatment if patient has any symptoms ## Decubitus ulcer noted to have stool around ulcer on arrival to the ED, but overall does not appear to be infected. Restart wound care ## Chronic diastolic heart failure patient is normally on Bumex and potassium. Started on low-dose fluids in the ED, as well as given bolus on arrival to ED. Reasonable for now, but need to be cautious given history of heart failure. Clinically euvolemic currently. Hold Bumex and potassium for now Continue NS at 50 mL/h, but low threshold for stopping if any signs of edema. ## Chronic anemia unchanged from baseline Follow CBC ## Type 2 diabetes only on metformin at home Hold home metformin Start low-dose sliding scale insulin ## Parkinson's disease Resume home Sinemet tabs in the morning and one tab a day ## Hypertension blood pressure controlled Continue home lisinopril 40 mg daily CODE STATUS: Full code Prophylaxis: Heparin subcu Diet: Diabetic Dispo: Place in observation, expect able to return to his SN[facility] tomorrow versus the next day Entirety of encounter took place via live audio video telemedicine device with remote physician and patient in hospital, with assistance of nurse at bedside. Code(s): R53.83 - OTHER FATIGUE Telemedicine Encounter - Telemedicine Encounter Telemedicine Encounter: "The entirety of this encounter was performed via Telemedicine" This visit was performed using real-time audio and video connection between my location and thepatients locationwith the assistance of a surrogateat the patients location. Written or verbal consent was obtained from the patient/guardian to perform this visit [email or web address]. Any patient questions regarding the telemedicine interaction were answered.
[2024-08-15 04:04] VITALS: TEMP 97.8
[2024-08-15 05:00] LABS: Absolute Neutrophil Ct (ANC) 4.09 x10^3/uL (1.78-5.38); BASOPHIL % 0.4 % (0.2-1.2); Basophil (Absolute #) 0.03 x10^3/uL (0.01-0.08); Eosinophil % 5.4 % (0.8-7.0); Eosinophil (Absolute #) 0.38 x10^3/uL (0.04-0.54); Hematocrit 28.1 % (40.1-51.0); Hemoglobin 9.2 g/dL (13.7-17.5); IMMATURE GRAN # 0.02 x10^3u/L (0.001-0.031); IMMATURE GRAN % 0.3 % (0.001-0.429); Lymphocyte (Absolute #) 1.91 x10^3/uL (1.32-3.57); Lymphocytes % 26.9 % (21.8-53.1); Mean Cell Volume 87.3 fL (79.0-92.2); Mean Corpuscular Hemoglobin 28.6 pg (25.7-32.2); Mean Corpuscular Hgb Concent. 32.7 g/dL (32.3-36.5); Mean Platelet Volume 9.4 fL (9.4-12.4); Monocyte (Absolute #) 0.66 x10^3/uL (0.30-0.82); Monocytes % 9.3 % (5.3-12.2); Neutrophil % 57.7 % (34.0-67.9); Platelet Count 157 x10^3/uL (163-337); Red Blood Count 3.22 x10^6/uL (4.63-6.08); Red Cell Distribution Width 13.8 % (11.6-14.4); White Blood Count 7.1 x10^3/uL (4.23-9.07)
[2024-08-15 05:01] LABS: ABG HEMOGLOBIN 9.7; ABG POTASSIUM 4.1 (3.5-5.1); ABG SITE LEFT BRACHIAL; ARTERIAL BLD GAS O2 SATURATION 97.2 % (95-100); ARTERIAL BLOOD GAS BASE EXCESS 1.1 (-2.0-2.0); ARTERIAL BLOOD GAS FIO2 21 %; ARTERIAL BLOOD GAS PCO2 36 mmHg (35-45); ARTERIAL BLOOD GAS PO2 78 mmHg (75-100); ARTERIAL BLOOD GAS pH 7.45 (7.35-7.45); CARBOXYHEMOGLOBIN 3.1 % THgb (0.0-6.9); HGB O2 SAT 94.1 g/dF (94-100); Methhemoglobin 0.1 % (1.4-1.5)
[2024-08-15 05:26] LABS: ANION GAP 8.6 MEQ/L (5-15); BILIRUBIN,TOTAL 0.9 mg/dL (0.2-1.3); Calcium 8.4 mg/dL (8.4-10.2); Creatinine 1 0.86 mg/dL (0.66-1.25); EST GLOMERULAR FILTRATION RATE 89.7 ML/MIN; Potassium 3.8 mmol/L (3.5-5.1); Total Protein 6.1 g/dL (6.3-8.2)
[2024-08-15] MEDS: Sinemet 25/100 MG PO SCH (06:19)
[2024-08-15] MEDS: HEPARIN 5000 UNITS/0.5 ML (HIGH RISK MED) SQ SCH (06:21)
[2024-08-15 07:33] VITALS: BP 119/57; PULSE 68; RESP 19
--- NOTE | 2024-08-15 08:26 | PCM.DS ---
Discharge Summary Date of Admission: 08/14/24 22:57 Date of Discharge: 08/15/24 Admitting Physician: DEDRICK MATHEW MD Primary Care Provider: LENA DUGGAN Allergies Allergies No Known Drug Allergies Allergy (Verified 07/21/24 07:00) Hospital Summary - Hospital Course Hospital Course: 08/15/24 78-year-old man with history of hypertension, diabetes, Parkinson disease, osteoarthritis, dyslipidemia, and decubitus ulcer, here with lethargy. Reportedly, [facility] after a possible unwitnessed fall with trauma to the head and face. However, ED physician reports that patient briefly awoke and denied any fall or trauma. No evidence of trauma on exam. Workup in the ED was unrevealing for any obvious source of confusion. He is awake and alert today. He has appears to be having an allergic reaction to something on his back. Benadryl 12.5 mg IV x1 given. Pt has a wadsworth in place from [facility] and changed in ER to aide in skin wound healing. WBC WNL today. Restarted home meds. Stopped IVF. Wound culture and urine culture negative. Labs do show incidental mono. Will provide supportive care. He denies any further concerns at this time. - Vitals & Intake/Output Vital Signs: Vital Signs Temperature 97.8 F 08/15/24 07:33 Pulse Rate 68 08/15/24 07:33 Respiratory Rate 19 08/15/24 07:33 Blood Pressure 119/57 08/15/24 07:33 O2 Sat by Pulse Oximetry 94 L 08/15/24 07:33 Intake & Output: Intake & Output 08/12/24 08/13/24 08/14/24 08/15/24 11:59 11:59 11:59 11:59 Intake Total 325 Output Total 1100 Balance -775 Weight 122.1 kg - Lab Result Diagrams: 08/15/24 04:57 08/15/24 04:57 Lab Results-Last 24 Hrs: Lab Results-Last 24 Hours 08/14/24 08/14/24 08/14/24 Range/Units 17:33 17:50 18:05 WBC 9.9 H (4.23-9.07) x10^3/uL RBC 3.40 L (4.63-6.08) x10^6/uL Hgb 9.6 L (13.7-17.5) g/dL Hct 30.1 L (40.1-51.0) % MCV 88.5 (79.0-92.2) fL MCH 28.2 (25.7-32.2) pg MCHC 31.9 L (32.3-36.5) g/dL RDW 13.9 (11.6-14.4) % Plt Count 192 (163-337) x10^3/uL MPV 10.0 (9.4-12.4) fL Gran % 58.7 (34.0-67.9) % Immature Gran % (Auto) 0.3 (0.001-0.429) % Nucleat RBC Rel Count 0.0 (0.00-0.2) % Eos # (Auto) 0.23 (0.04-0.54) x10^3/uL Immature Gran # (Auto) 0.03 (0.001-0.031) x10^3u/L Absolute Lymphs (auto) 2.92 (1.32-3.57) x10^3/uL Absolute Monos (auto) 0.86 H (0.30-0.82) x10^3/uL Absolute Nucleated RBC 0.00 (0.00-0.012) x10^3u/L Lymphocytes % 29.6 (21.8-53.1) % Monocytes % 8.7 (5.3-12.2) % Eosinophils % 2.3 (0.8-7.0) % Basophils % 0.4 (0.2-1.2) % Absolute Granulocytes 5.80 H (1.78-5.38) x10^3/uL Basophils # 0.04 (0.01-0.08) x10^3/uL Puncture Site pCO2 (35-45) mmHg pO2 (75-100) mmHg Base Excess (-2.0-2.0) O2 Saturation (94-100) g/dF ABG pH (7.35-7.45) ABG HCO3 (22-28) ABG O2 Sat (Measured) (95-100) % Harpal Test Hemoglobin Carboxyhemoglobin (0.0-6.9) % THgb Methemoglobin (1.4-1.5) % Temperature C POC O2 Flow Rate % Sodium (135-145) mmol/L Potassium (3.5-5.1) mmol/L Chloride (98-107) mmol/L Carbon Dioxide (22-30) mmol/L Anion Gap (5-15) MEQ/L BUN (9-20) mg/dL Creatinine (0.66-1.25) mg/dL Estimated GFR ML/MIN Glucose (74-106) mg/dL POC Glucometer (74 to 106) mg/dL Lactic Acid 1.9 (0.4-2.0) Calcium (8.4-10.2) mg/dL Total Bilirubin (0.2-1.3) mg/dL AST (17-59) U/L ALT (0-50) U/L Alkaline Phosphatase (38-126) U/L Ammonia (9-30) umol/L NT-Pro-B Natriuret Pep (<300) pg/mL Serum Total Protein (6.3-8.2) g/dL Albumin (3.5-5.0) g/dL Urine Color Yellow (Yellow) Urine Appearance Clear (Clear) Urine pH 5.5 (4.6-8.0) Ur Specific Douds 1.015 (1.005-1.030) Urine Protein Negative (Negative) Urine Glucose (UA) Negative (Negative) mg/dL Urine Ketones Negative (Negative) Urine Blood Negative (Negative) Urine Nitrite Negative (Negative) Urine Bilirubin Negative (Negative) Urine Urobilinogen 0.2 (0.2) mg/dL Ur Leukocyte Esterase Negative (Negative) U Hyaline Cast (Auto) NONE SEEN (0-2) /LPF Urine Microscopic RBC 0-2 (0-5) /HPF Urine Microscopic WBC 0-2 (0-5) /HPF Ur Epithelial Cells None Seen (None Seen) /HPF Urine Bacteria None Seen (None Seen) /HPF Urine Culture Reflexed ORDERED SEPARATELY (NO) Monoscreen (NEGATIVE) Influenza Type A Ag (NEGATIVE) Influenza Type B Ag (NEGATIVE) RSV (PCR) (NEGATIVE) SARS-CoV-2 (PCR) (NEGATIVE) Group A Strep Antibody (NEGATIVE) 08/14/24 08/14/24 08/14/24 Range/Units 18:05 18:05 18:05 WBC (4.23-9.07) x10^3/uL RBC (4.63-6.08) x10^6/uL Hgb (13.7-17.5) g/dL Hct (40.1-51.0) % MCV (79.0-92.2) fL MCH (25.7-32.2) pg MCHC (32.3-36.5) g/dL RDW (11.6-14.4) % Plt Count (163-337) x10^3/uL MPV (9.4-12.4) fL Gran % (34.0-67.9) % Immature Gran % (Auto) (0.001-0.429) % Nucleat RBC Rel Count (0.00-0.2) % Eos # (Auto) (0.04-0.54) x10^3/uL Immature Gran # (Auto) (0.001-0.031) x10^3u/L Absolute Lymphs (auto) (1.32-3.57) x10^3/uL Absolute Monos (auto) (0.30-0.82) x10^3/uL Absolute Nucleated RBC (0.00-0.012) x10^3u/L Lymphocytes % (21.8-53.1) % Monocytes % (5.3-12.2) % Eosinophils % (0.8-7.0) % Basophils % (0.2-1.2) % Absolute Granulocytes (1.78-5.38) x10^3/uL Basophils # (0.01-0.08) x10^3/uL Puncture Site pCO2 (35-45) mmHg pO2 (75-100) mmHg Base Excess (-2.0-2.0) O2 Saturation (94-100) g/dF ABG pH (7.35-7.45) ABG HCO3 (22-28) ABG O2 Sat (Measured) (95-100) % Harpal Test Hemoglobin Carboxyhemoglobin (0.0-6.9) % THgb Methemoglobin (1.4-1.5) % Temperature C POC O2 Flow Rate % Sodium 135 (135-145) mmol/L Potassium 4.3 (3.5-5.1) mmol/L Chloride 104 (98-107) mmol/L Carbon Dioxide 25 (22-30) mmol/L Anion Gap 10.5 (5-15) MEQ/L BUN 36 H (9-20) mg/dL Creatinine 1.10 (0.66-1.25) mg/dL Estimated GFR 69.6 ML/MIN Glucose 127 H (74-106) mg/dL POC Glucometer (74 to 106) mg/dL Lactic Acid (0.4-2.0) Calcium 8.8 (8.4-10.2) mg/dL Total Bilirubin 0.80 (0.2-1.3) mg/dL AST 41 (17-59) U/L ALT 16 (0-50) U/L Alkaline Phosphatase 78 (38-126) U/L Ammonia < 9 L (9-30) umol/L NT-Pro-B Natriuret Pep (<300) pg/mL Serum Total Protein 6.1 L (6.3-8.2) g/dL Albumin 3.2 L (3.5-5.0) g/dL Urine Color (Yellow) Urine Appearance (Clear) Urine pH (4.6-8.0) Ur Specific Douds (1.005-1.030) Urine Protein (Negative) Urine Glucose (UA) (Negative) mg/dL Urine Ketones (Negative) Urine Blood (Negative) Urine Nitrite (Negative) Urine Bilirubin (Negative) Urine Urobilinogen (0.2) mg/dL Ur Leukocyte Esterase (Negative) U Hyaline Cast (Auto) (0-2) /LPF Urine Microscopic RBC (0-5) /HPF Urine Microscopic WBC (0-5) /HPF Ur Epithelial Cells (None Seen) /HPF Urine Bacteria (None Seen) /HPF Urine Culture Reflexed (NO) Monoscreen POSITIVE (NEGATIVE) Influenza Type A Ag (NEGATIVE) Influenza Type B Ag (NEGATIVE) RSV (PCR) (NEGATIVE) SARS-CoV-2 (PCR) (NEGATIVE) Group A Strep Antibody (NEGATIVE) 08/14/24 08/14/24 08/15/24 Range/Units 18:10 18:10 04:50 WBC (4.23-9.07) x10^3/uL RBC (4.63-6.08) x10^6/uL Hgb (13.7-17.5) g/dL Hct (40.1-51.0) % MCV (79.0-92.2) fL MCH (25.7-32.2) pg MCHC (32.3-36.5) g/dL RDW (11.6-14.4) % Plt Count (163-337) x10^3/uL MPV (9.4-12.4) fL Gran % (34.0-67.9) % Immature Gran % (Auto) (0.001-0.429) % Nucleat RBC Rel Count (0.00-0.2) % Eos # (Auto) (0.04-0.54) x10^3/uL Immature Gran # (Auto) (0.001-0.031) x10^3u/L Absolute Lymphs (auto) (1.32-3.57) x10^3/uL Absolute Monos (auto) (0.30-0.82) x10^3/uL Absolute Nucleated RBC (0.00-0.012) x10^3u/L Lymphocytes % (21.8-53.1) % Monocytes % (5.3-12.2) % Eosinophils % (0.8-7.0) % Basophils % (0.2-1.2) % Absolute Granulocytes (1.78-5.38) x10^3/uL Basophils # (0.01-0.08) x10^3/uL Puncture Site LEFT BRACHIAL pCO2 36 (35-45) mmHg pO2 78 (75-100) mmHg Base Excess 1.1 (-2.0-2.0) O2 Saturation 94.1 (94-100) g/dF ABG pH 7.45 (7.35-7.45) ABG HCO3 25.0 (22-28) ABG O2 Sat (Measured) 97.2 (95-100) % Harpal Test NOT APPLICABLE Hemoglobin 9.7 Carboxyhemoglobin 3.1 (0.0-6.9) % THgb Methemoglobin 0.1 L (1.4-1.5) % Temperature 37.0 C POC O2 Flow Rate 21 % Sodium (135-145) mmol/L Potassium 4.1 (3.5-5.1) mmol/L Chloride (98-107) mmol/L Carbon Dioxide (22-30) mmol/L Anion Gap (5-15) MEQ/L BUN (9-20) mg/dL Creatinine (0.66-1.25) mg/dL Estimated GFR ML/MIN Glucose (74-106) mg/dL POC Glucometer (74 to 106) mg/dL Lactic Acid (0.4-2.0) Calcium (8.4-10.2) mg/dL Total Bilirubin (0.2-1.3) mg/dL AST (17-59) U/L ALT (0-50) U/L Alkaline Phosphatase (38-126) U/L Ammonia (9-30) umol/L NT-Pro-B Natriuret Pep (<300) pg/mL Serum Total Protein (6.3-8.2) g/dL Albumin (3.5-5.0) g/dL Urine Color (Yellow) Urine Appearance (Clear) Urine pH (4.6-8.0) Ur Specific Douds (1.005-1.030) Urine Protein (Negative) Urine Glucose (UA) (Negative) mg/dL Urine Ketones (Negative) Urine Blood (Negative) Urine Nitrite (Negative) Urine Bilirubin (Negative) Urine Urobilinogen (0.2) mg/dL Ur Leukocyte Esterase (Negative) U Hyaline Cast (Auto) (0-2) /LPF Urine Microscopic RBC (0-5) /HPF Urine Microscopic WBC (0-5) /HPF Ur Epithelial Cells (None Seen) /HPF Urine Bacteria (None Seen) /HPF Urine Culture Reflexed (NO) Monoscreen (NEGATIVE) Influenza Type A Ag NEGATIVE (NEGATIVE) Influenza Type B Ag NEGATIVE (NEGATIVE) RSV (PCR) NEGATIVE (NEGATIVE) SARS-CoV-2 (PCR) NEGATIVE (NEGATIVE) Group A Strep Antibody NOT DETECTED (NEGATIVE) 08/15/24 08/15/24 08/15/24 Range/Units 04:57 04:57 07:06 WBC 7.1 (4.23-9.07) x10^3/uL RBC 3.22 L (4.63-6.08) x10^6/uL Hgb 9.2 L (13.7-17.5) g/dL Hct 28.1 L (40.1-51.0) % MCV 87.3 (79.0-92.2) fL MCH 28.6 (25.7-32.2) pg MCHC 32.7 (32.3-36.5) g/dL RDW 13.8 (11.6-14.4) % Plt Count 157 L (163-337) x10^3/uL MPV 9.4 (9.4-12.4) fL Gran % 57.7 (34.0-67.9) % Immature Gran % (Auto) 0.3 (0.001-0.429) % Nucleat RBC Rel Count 0.0 (0.00-0.2) % Eos # (Auto) 0.38 (0.04-0.54) x10^3/uL Immature Gran # (Auto) 0.02 (0.001-0.031) x10^3u/L Absolute Lymphs (auto) 1.91 (1.32-3.57) x10^3/uL Absolute Monos (auto) 0.66 (0.30-0.82) x10^3/uL Absolute Nucleated RBC 0.00 (0.00-0.012) x10^3u/L Lymphocytes % 26.9 (21.8-53.1) % Monocytes % 9.3 (5.3-12.2) % Eosinophils % 5.4 (0.8-7.0) % Basophils % 0.4 (0.2-1.2) % Absolute Granulocytes 4.09 (1.78-5.38) x10^3/uL Basophils # 0.03 (0.01-0.08) x10^3/uL Puncture Site pCO2 (35-45) mmHg pO2 (75-100) mmHg Base Excess (-2.0-2.0) O2 Saturation (94-100) g/dF ABG pH (7.35-7.45) ABG HCO3 (22-28) ABG O2 Sat (Measured) (95-100) % Harpal Test Hemoglobin Carboxyhemoglobin (0.0-6.9) % THgb Methemoglobin (1.4-1.5) % Temperature C POC O2 Flow Rate % Sodium 137 (135-145) mmol/L Potassium 3.8 (3.5-5.1) mmol/L Chloride 108 H (98-107) mmol/L Carbon Dioxide 24 (22-30) mmol/L Anion Gap 8.6 (5-15) MEQ/L BUN 26 H (9-20) mg/dL Creatinine 0.86 (0.66-1.25) mg/dL Estimated GFR 89.7 ML/MIN Glucose 118 H (74-106) mg/dL POC Glucometer 106 (74 to 106) mg/dL Lactic Acid (0.4-2.0) Calcium 8.4 (8.4-10.2) mg/dL Total Bilirubin 0.90 (0.2-1.3) mg/dL AST 38 (17-59) U/L ALT 13 (0-50) U/L Alkaline Phosphatase 68 (38-126) U/L Ammonia (9-30) umol/L NT-Pro-B Natriuret Pep 493 (<300) pg/mL Serum Total Protein 6.1 L (6.3-8.2) g/dL Albumin 3.0 L (3.5-5.0) g/dL Urine Color (Yellow) Urine Appearance (Clear) Urine pH (4.6-8.0) Ur Specific Douds (1.005-1.030) Urine Protein (Negative) Urine Glucose (UA) (Negative) mg/dL Urine Ketones (Negative) Urine Blood (Negative) Urine Nitrite (Negative) Urine Bilirubin (Negative) Urine Urobilinogen (0.2) mg/dL Ur Leukocyte Esterase (Negative) U Hyaline Cast (Auto) (0-2) /LPF Urine Microscopic RBC (0-5) /HPF Urine Microscopic WBC (0-5) /HPF Ur Epithelial Cells (None Seen) /HPF Urine Bacteria (None Seen) /HPF Urine Culture Reflexed (NO) Monoscreen (NEGATIVE) Influenza Type A Ag (NEGATIVE) Influenza Type B Ag (NEGATIVE) RSV (PCR) (NEGATIVE) SARS-CoV-2 (PCR) (NEGATIVE) Group A Strep Antibody (NEGATIVE) Micro Results-Entire Visit: Microbiology 08/14/24 21:43 Wound Culture - Preliminary Decubitus Ulcer - Posterior NO GROWTH TO DATE 08/14/24 17:33 Urine Culture - Preliminary Catherized NO GROWTH TO DATE Accuchecks Date 08/15/24 Time 07:32 - Radiology Exams Ordered Rad Exams-Entire Visit: Radiology Procedures Category Date Time Status ABDOMEN AND PELVIS W/0 CONTRAS [CT] Stat Exams 08/14/24 20:22 Completed CERVICAL SPINE WO CONTRAST [CT] Stat Exams 08/14/24 16:40 Completed FACIAL BONES WO CONTRAST [CT] Stat Exams 08/14/24 16:40 Completed HEAD WITHOUT CONTRAST [CT] Stat Exams 08/14/24 16:40 Completed - Procedures and Test Procedures and Tests throughout Hospitalization: Therapy Orders & Screens 08/14/24 23:01 PT Eval & Treat ( Order) ONCE Reason for Eval:: Wound care Diagnosis: Decubitus ulcer Discharge Exam General Appearance: no apparent distress, alert, obese Neurologic Exam: alert, oriented x 3, cooperative, normal mood/affect, nml cerebellar function, sensation nml, No motor deficits Eye Exam: PERRL, EOMI, eyes nml inspection Ears, Nose, Throat Exam: normal ENT inspection, pharynx normal, moist mucous membranes Neck Exam: normal inspection, non-tender, supple, full range of motion Respiratory Exam: normal breath sounds, lungs clear, No respiratory distress Cardiovascular Exam: regular rate/rhythm, normal heart sounds Gastrointestinal/Abdomen Exam: soft, No tenderness, No mass Male Genitalia Exam: deferred Rectal Exam: deferred Back Exam: normal inspection, normal range of motion, rash, No CVA tenderness, No vertebral tenderness Extremity Exam: normal inspection, normal range of motion Skin Exam: normal color, warm, dry, other (wounds on buttock packed) Final Diagnosis/Problem List - Final Discharge Diagnosis/Problem (1) CMV mononucleosis Current Visit: Yes Status: Acute Assessment & Plan: - + test in ER - Supportive care - may cause increased sedation Code(s): B27.10 - CYTOMEGALOVIRAL MONONUCLEOSIS WITHOUT COMPLICATIONS (2) Lethargy Current Visit: Yes Status: Resolved Assessment & Plan: - resolved pt awake and alert - all radiology results reviewed- no acute concerns - may be 2:2 narcotic pain meds or mono? - CBC, CMP, ABG reviewed Code(s): R53.83 - OTHER FATIGUE (3) Hives Current Visit: Yes Status: Acute Assessment & Plan: - on back- unknown cause- not taking any antibiotics, no new meds - Benadryl 12.5 IV x1 - Consider topical cream at d/c Code(s): L50.9 - URTICARIA, UNSPECIFIED (4) CHF (congestive heart failure) Current Visit: Yes Status: Chronic Assessment & Plan: - Stop IVF - continue home meds - Chronic- not in acute exacerbation- diastolic heart failure - JAYY's Code(s): I50.9 - HEART FAILURE, UNSPECIFIED (5) Anemia Current Visit: Yes Status: Chronic Assessment & Plan: -Hgb 9.2 - trend Code(s): D64.9 - ANEMIA, UNSPECIFIED (6) Decubitus ulcer Current Visit: Yes Status: Chronic Assessment & Plan: - chronic- at [facility] for wound care as pt is unable to take care of at home - antibiotics completed OP - wound culture negative Code(s): L89.90 - PRESSURE ULCER OF UNSPECIFIED SITE, UNSPECIFIED STAGE (7) HTN (hypertension) Current Visit: No Status: Chronic Assessment & Plan: - BP controlled - Continue home meds Code(s): I10 - ESSENTIAL (PRIMARY) HYPERTENSION (8) Hyperlipidemia Current Visit: No Status: Chronic Assessment & Plan: - continue statin Code(s): E78.5 - HYPERLIPIDEMIA, UNSPECIFIED (9) Parkinson disease Current Visit: No Status: Chronic Assessment & Plan: Resume home Sinemet tabs Code(s): G20.A1 - PARKINSON'S DIS W/O DYSKINESIA, W/O MENTION OF FLUCTUATIONS (10) Type II diabetes mellitus Current Visit: No Status: Chronic Assessment & Plan: - All CT scans w/o contrast- continue metformin - stopped s/s and accuchecks - A1C 7.11- 05/24/24- controlled (11) Obesity (BMI 30-39.9) Current Visit: No Status: Chronic Assessment & Plan: - advised ADA diet and exercise control Code(s): E66.9 - OBESITY, UNSPECIFIED - Discharge Discharge Date: 08/15/24 Disposition: DC TO ANY "OTHER" RESIDENTIAL Condition: Stable Prescriptions: Continue lisinopriL [Zestril] 40 mg PO DAILY Metformin HCl 500 mg [Glucophage 500 MG] 500 mg PO DAILY Ezetimibe 10 mg PO QHS Atorvastatin Calcium [Lipitor] 80 mg PO QHS Metoprolol Tartrate 25 mg [Lopressor 25MG Tab] 50 mg PO DAILY Carbidopa/Levodopa [Carbidopa-Levodopa 25-100 Tab] 2 tab PO 0600 Carbidopa/Levodopa 25/100 mg [Sinemet 25/100 MG] 1 tab PO 1200 Furosemide 40 mg [Lasix 40 MG] 40 mg PO DAILY Potassium Chloride 10 meq PO DAILY Hydrocodone/Acetaminophen [[place] 10-325 mg] 1 tab PO DAILY PRN PRN Reason: Pain Instructions: Viral Exanthem (DC) Follow up with: LENA DUGGAN MD [Primary Care Provider] -
[2024-08-15] MEDS: BENADRYL 50 MG/ML IV ONE (08:30)
[2024-08-15] MEDS: BENADRYL 12.5 MG/5 ML PO ONE (08:45)
[2024-08-15] MEDS: Lasix 40 MG PO SCH (09:26)
[2024-08-15] MEDS: Glucophage 500 MG PO SCH (09:26)
[2024-08-15] MEDS: Zestril 20 MG PO SCH (09:26)
[2024-08-15] MEDS: Klor Con PO SCH (09:26)
[2024-08-15] MEDS: Lopressor 50 MG PO SCH (09:26)
[2024-08-15] MEDS ORDERED: NON-FORMULARY ITEM (Atorvastatin Calcium [Lipitor] 80 MG Tablet) PO SCH (10:00)
[2024-08-15] MEDS ORDERED: Zetia 10 MG PO SCH ×2 (10:00→22:00)
[2024-08-15] MEDS ORDERED: Sinemet 25/100 MG PO SCH (12:00)
[2024-08-15] MEDS ORDERED: ZOCOR 20MG PO SCH (22:00)
[2024-08-16 15:13] LABS: EBV Ab VCA, IgM <36.0 U/mL (0.0-35.9); EBV Nuclear Antigen Ab, IgG >600.0 U/mL (0.0-17.9)
== END 2024-08-15 10:52 ==
LOC: ED 14:48 → MED SURG 22:57
PROVIDERS: ADMIT Internal Medicine; ATTEND Internal Medicine
DX: B27.10 Cytomegaloviral mononucleosis without complications (principal); R53.83 Other fatigue; L50.9 Urticaria, unspecified; I11.0 Hypertensive heart disease with heart failure; I50.9 Heart failure, unspecified; D64.9 Anemia, unspecified; L89.90 Pressure ulcer of unspecified site, unspecified stage; E78.5 Hyperlipidemia, unspecified; G20.A1 Parkinson's disease without dyskinesia, without mention of fluctuations; E11.9 Type 2 diabetes mellitus without complications; E66.9 Obesity, unspecified; Z79.899 Other long term (current) drug therapy
CPT/HCPCS: 0241U; 36415; 36600; 51702; 70450; 70486; 72125; 74176; 80053; 81001; 82140; 82375; 82803; 82947; 83605; 83880; 85025; 86308; 86664; 86665; 87040; 87070; 87086; 87651; 93041; 94760; 99284; 96374; G0378; J1200; J1644; J2060; Q3014; A9270-GY

== ENCOUNTER 2024-09-11 12:29 | Inpatient (IN) | payer MEDICARE ==
[2024-09-11] MEDS ORDERED: Sodium Chloride 0.9% 1000 ML 1,000 ML ONE (13:16)
[2024-09-11] MEDS ORDERED: TYLENOL 325 MG ONE (13:16)
[2024-09-11] MEDS: Sodium Chloride 0.9% 1000 ML 1,000 ML IV STA (13:20)
[2024-09-11] MEDS: TYLENOL 325 MG PO STA (13:21)
[2024-09-11 13:34] LABS: Absolute Neutrophil Ct (ANC) 6.22 x10^3/uL (1.78-5.38); BASOPHIL % 0.3 % (0.2-1.2); Basophil (Absolute #) 0.02 x10^3/uL (0.01-0.08); Eosinophil (Absolute #) 0.08 x10^3/uL (0.04-0.54); Hematocrit 30.3 % (40.1-51.0); Hemoglobin 9.8 g/dL (13.7-17.5); IMMATURE GRAN # 0.05 x10^3u/L (0.001-0.031); IMMATURE GRAN % 0.6 % (0.001-0.429); Lymphocyte (Absolute #) 0.78 x10^3/uL (1.32-3.57); Lymphocytes % 9.9 % (21.8-53.1); Mean Cell Volume 85.6 fL (79.0-92.2); Mean Corpuscular Hemoglobin 27.7 pg (25.7-32.2); Mean Corpuscular Hgb Concent. 32.3 g/dL (32.3-36.5); Mean Platelet Volume 9.4 fL (9.4-12.4); Monocytes % 8.9 % (5.3-12.2); Neutrophil % 79.3 % (34.0-67.9); Platelet Count 200 x10^3/uL (163-337); Red Blood Count 3.54 x10^6/uL (4.63-6.08); Red Cell Distribution Width 13.9 % (11.6-14.4); White Blood Count 7.9 x10^3/uL (4.23-9.07)
[2024-09-11 13:47] LABS: ALBUMIN 3.4 g/dL (3.5-5.0); ANION GAP 14.1 MEQ/L (5-15); BILIRUBIN,TOTAL 0.9 mg/dL (0.2-1.3); Calcium 9.2 mg/dL (8.4-10.2); Creatinine 1 0.94 mg/dL (0.66-1.25); Total Protein 6.4 g/dL (6.3-8.2)
[2024-09-11 14:21] LABS: INFLUENZA A NEGATIVE (NEGATIVE); INFLUENZA B NEGATIVE (NEGATIVE); RESPIRATORY SYNCTIAL VIRUS NEGATIVE (NEGATIVE)
[2024-09-11 14:22] LABS: SARS-CoV-2 Xpert Express POSITIVE (NEGATIVE)
[2024-09-11 14:26] LABS: Appearance Clear (Clear); Bacteria None Seen /HPF (None Seen); Bilirubin Negative (Negative); Blood Large (Negative); Epithelial Cells None Seen /HPF (None Seen); Glucose, Urine Negative (Negative); Ketones 15 (Negative); Leukocyte Esterase Negative (Negative); Nitrite Negative (Negative); Protein,Urine Dip 30 (Negative); Specific Gravity 1.015 (1.005-1.030); Urobilinogen 0.2 mg/dL (0.2); WBC 0-2 /HPF (0-5)
--- NOTE | 2024-09-11 14:34 | ERPHSYRPT ---
- History of Present Illness Time Seen by Provider: 09/11/24 14:28 Source: patient, EMS Exam Limitations: no limitations Patient Subjective Stated Complaint: Pt states "I was getting lunch yesterday and I slipped on the carpet and could not get up. I was on the floor until my family came today." Triage Nursing Assessment: PT presented alert to person, does not know day of week, does not know month. PT trembling, tachycardic, in no apparent respriatory distress. Pt resting comfortably on the bed. PT denied any pain. Physician History: Pt states "I was getting lunch yesterday and I slipped on the carpet and could not get up. I was on the floor until my family came today." 78-year-old male with significant past medical history of hypertension, history of recent decubitus ulcer for which wound culture was growing Pseudomonas aeruginosa for which patient got milligram 1 g daily for 10 days which was stopped on September 07. Patient was undergoing rehab at local rehab facility when patient was discharged few days ago as patient was not satisfied with their care. Patient went home and patient fell yesterday and could not get out of the floor so today the family member came and found him on the floor and they called ambulance and patient was brought into the emergency room. In the emergency room patient is alert awake but was trembling initially he was confused about time and month but later on patient was able to answer all the question properly. Patient blood pressure was 84 x 54. Patient denies any chest pain shortness of breath nausea vomiting diarrhea headache. Timing/Duration: yesterday Associated Symptoms: chills, fever, loss of appetite, malaise, weakness Allergies/Adverse Reactions: No Known Drug Allergies Allergy (Verified 07/21/24 07:00) Home Medications: lisinopriL [Zestril] 40 mg PO DAILY 12/11/15 [History] Atorvastatin Calcium [Lipitor] 80 mg PO QHS 06/09/19 [History] Ezetimibe 10 mg PO QHS 06/09/19 [History] Metformin HCl 500 mg [Glucophage 500 MG] 500 mg PO DAILY 06/09/19 [History] Carbidopa/Levodopa [Carbidopa-Levodopa 25-100 Tab] 2 tab PO 0600 01/15/24 [Hi story] Metoprolol Tartrate 25 mg [Lopressor 25MG Tab] 50 mg PO DAILY 01/15/24 [History] Carbidopa/Levodopa 25/100 mg [Sinemet 25/100 MG] 1 tab PO 1200 07/21/24 [History] Furosemide 40 mg [Lasix 40 MG] 40 mg PO DAILY 08/14/24 [History] Hydrocodone/Acetaminophen [[place] 10-325 mg] 1 tab PO DAILY PRN 08/14/24 [History] Potassium Chloride 10 meq PO DAILY 08/14/24 [History] Hx Tetanus, Diphtheria Vaccination/Date Given: (unknown) Hx Influenza Vaccination/Date Given: (unknown) Hx Pneumococcal Vaccination/Date Given: (unknown) Travel Risk - International Travel Have you traveled outside of the country in past 3 weeks: No - Emerging Infectious Disease Are you exhibiting symptoms associated with any current EIDs: No - Review of Systems Constitutional: Fever, Chills, Malaise, Weakness Eyes: No Symptoms Ears, Nose, & Throat: No Symptoms Respiratory: No Cough, No Dyspnea Cardiac: No Chest Pain, No Edema, No Syncope Abdominal/Gastrointestinal: No Abdominal Pain, No Nausea, No Vomiting, No Diarrhea Genitourinary Symptoms: No Dysuria Musculoskeletal: No Back Pain, No Neck Pain Skin: No Rash Neurological: No Dizziness, No Focal Weakness, No Sensory Changes Psychological: No Symptoms Endocrine: No Symptoms All Other Systems: Reviewed and Negative - Past Medical History Pertinent Past Medical History: Yes Neurological History: Other ENT History: No Pertinent History Cardiac History: High Cholesterol, Hypertension Respiratory History: No Pertinent History Endocrine Medical History: Diabetes Type II Musculoskeletal History: Osteoarthritis, Other GI Medical History: No Pertinent History History: No Pertinent History Psycho-Social History: No Pertinent History Male Reproductive Disorders: No Pertinent History Other Medical History: SX HX; LEFT KNEE REPLACEMENT YEARS AGO, 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 , finger amputation,left knee joint replacement - Social History Smoking Status: Never smoker Exposure to second hand smoke: No Drug Use: none Patient Lives Alone: Yes - Social Determinants of Health Will the patient participate in the screening: Yes Do you worry about a steady place to live?: No Do you have any problems with any of the following?: No known problems In the past 12 months,have you had to go without utilities?: No Transportation Issues: No Has anyone in your support network made you feel unsafe?: No Have you or anyone in your house had to go without enough: No - Nursing Vital Signs Nursing Vital Signs: Initial Vital Signs Respiratory Rate 29 H 09/11/24 12:37 Blood Pressure 84/70 09/11/24 12:37 O2 Sat by Pulse Oximetry 88 L 09/11/24 12:37 Pain Scale Pain Intensity 0 - Physical Exam General Appearance: no apparent distress, alert Eye Exam: PERRL/EOMI, eyes nml inspection Ears, Nose, Throat Exam: normal ENT inspection, TMs normal, pharynx normal, moist mucous membranes Neck Exam: normal inspection, non-tender, supple, full range of motion Respiratory Exam: normal breath sounds, lungs clear, No respiratory distress Cardiovascular Exam: regular rate/rhythm, normal heart sounds, normal peripheral pulses Gastrointestinal/Abdomen Exam: soft, normal bowel sounds, No tenderness, No mass Back Exam: normal inspection, normal range of motion, No CVA tenderness, No vertebral tenderness Extremity Exam: normal inspection, normal range of motion, pelvis stable Neurologic Exam: alert, oriented x 3, cooperative, tobacco feeder catcher II-XII nml as tested, sensation nml, confusion, No motor deficits, No sensory deficit Skin Exam: normal color, warm, dry, decubitus, No rash Lymphatic Exam: No adenopathy SpO2 Interpretation: normal SpO2: 96 O2 Delivery: Room Air - Course Nursing assessment & vital signs reviewed: Yes EKG Interpreted by Me: A-fib Rhythm Strip: Atrial Fibrillation - Radiology Exams Chest X-ray Interpretation: Interpreted by me, Reviewed by me (COPD changes), No Pneumonia Ordered Tests: Active Orders 24 hr Category Date Time Status EKG-ER Only STAT Care 09/11/24 12:47 Active BLOOD CULTURE Stat Lab 09/11/24 12:47 Received CBC W DIFF Stat Lab 09/11/24 12:47 Completed CMP Stat Lab 09/11/24 13:15 Completed CULTURE,URINE Stat Lab 09/11/24 13:00 Received Lactic Acid Stat Lab 09/11/24 13:25 Completed PROCALCITONIN Stat Lab 09/11/24 13:15 Completed UA W/RFX UR CULTURE Stat Lab 09/11/24 13:00 Completed Medication Summary Discontinued Medications Generic Name Dose Route Start Last Admin Trade Name Nash PRN Reason Stop Dose Admin Acetaminophen 975 mg 09/11/24 12:47 09/11/24 13:21 Acetaminophen 325 Mg Tablet PO 09/11/24 12:48 975 mg STAT STA Administration Acetaminophen Confirm 09/11/24 13:16 Acetaminophen 325 Mg Tablet Administered 09/11/24 13:17 Dose 975 mg .ROUTE .STK-MED ONE Sodium Chloride 1,000 mls @ 999 mls/hr 09/11/24 12:47 09/11/24 14:35 Sodium Chloride 0.9% 1000 Ml IV 09/11/24 13:47 Infused .Q1H1M STA Infusion Sodium Chloride Confirm 09/11/24 13:16 Sodium Chloride 0.9% 1000 Ml Administered 09/11/24 13:17 Dose 1,000 mls @ ud .ROUTE .STK-MED ONE Lab/Rad Data: Laboratory Result Diagrams 09/11/24 12:47 09/11/24 13:15 Laboratory Results 09/11/24 09/11/24 09/11/24 Range/Units 13:25 13:15 13:15 WBC (4.23-9.07) x10^3/uL RBC (4.63-6.08) x10^6/uL Hgb (13.7-17.5) g/dL Hct (40.1-51.0) % MCV (79.0-92.2) fL MCH (25.7-32.2) pg MCHC (32.3-36.5) g/dL RDW (11.6-14.4) % Plt Count (163-337) x10^3/uL MPV (9.4-12.4) fL Gran % (34.0-67.9) % Immature Gran % (Auto) (0.001-0.429) % Nucleat RBC Rel Count (0.00-0.2) % Eos # (Auto) (0.04-0.54) x10^3/uL Immature Gran # (Auto) (0.001-0.031) x10^3u/L Absolute Lymphs (auto) (1.32-3.57) x10^3/uL Absolute Monos (auto) (0.30-0.82) x10^3/uL Absolute Nucleated RBC (0.00-0.012) x10^3u/L Lymphocytes % (21.8-53.1) % Monocytes % (5.3-12.2) % Eosinophils % (0.8-7.0) % Basophils % (0.2-1.2) % Absolute Granulocytes (1.78-5.38) x10^3/uL Basophils # (0.01-0.08) x10^3/uL Sodium 137 (135-145) mmol/L Potassium 5.0 (3.5-5.1) mmol/L Chloride 106 (98-107) mmol/L Carbon Dioxide 22 (22-30) mmol/L Anion Gap 14.1 (5-15) MEQ/L BUN 43 H (9-20) mg/dL Creatinine 0.94 (0.66-1.25) mg/dL Estimated GFR 84.0 ML/MIN Glucose 138 H (74-106) mg/dL Lactic Acid 1.6 (0.4-2.0) Calcium 9.2 (8.4-10.2) mg/dL Total Bilirubin 0.90 (0.2-1.3) mg/dL AST 148 H (17-59) U/L ALT 12 (0-50) U/L Alkaline Phosphatase 85 (38-126) U/L Serum Total Protein 6.4 (6.3-8.2) g/dL Albumin 3.4 L (3.5-5.0) g/dL Procalcitonin 0.143 H (0.030-0.080) ng/mL Urine Color (Yellow) Urine Appearance (Clear) Urine pH (4.6-8.0) Ur Specific Castaner (1.005-1.030) Urine Protein (Negative) Urine Glucose (UA) (Negative) mg/dL Urine Ketones (Negative) Urine Blood (Negative) Urine Nitrite (Negative) Urine Bilirubin (Negative) Urine Urobilinogen (0.2) mg/dL Ur Leukocyte Esterase (Negative) U Hyaline Cast (Auto) (0-2) /LPF Urine Microscopic RBC (0-5) /HPF Urine Microscopic WBC (0-5) /HPF Ur Epithelial Cells (None Seen) /HPF Urine Bacteria (None Seen) /HPF Urine Culture Reflexed (NO) Influenza Type A Ag (NEGATIVE) Influenza Type B Ag (NEGATIVE) RSV (PCR) (NEGATIVE) SARS-CoV-2 (PCR) (NEGATIVE) 09/11/24 09/11/24 09/11/24 Range/Units 13:14 13:00 12:47 WBC 7.9 (4.23-9.07) x10^3/uL RBC 3.54 L (4.63-6.08) x10^6/uL Hgb 9.8 L (13.7-17.5) g/dL Hct 30.3 L (40.1-51.0) % MCV 85.6 (79.0-92.2) fL MCH 27.7 (25.7-32.2) pg MCHC 32.3 (32.3-36.5) g/dL RDW 13.9 (11.6-14.4) % Plt Count 200 (163-337) x10^3/uL MPV 9.4 (9.4-12.4) fL Gran % 79.3 H (34.0-67.9) % Immature Gran % (Auto) 0.6 H (0.001-0.429) % Nucleat RBC Rel Count 0.0 (0.00-0.2) % Eos # (Auto) 0.08 (0.04-0.54) x10^3/uL Immature Gran # (Auto) 0.05 H (0.001-0.031) x10^3u/L Absolute Lymphs (auto) 0.78 L (1.32-3.57) x10^3/uL Absolute Monos (auto) 0.70 (0.30-0.82) x10^3/uL Absolute Nucleated RBC 0.00 (0.00-0.012) x10^3u/L Lymphocytes % 9.9 L (21.8-53.1) % Monocytes % 8.9 (5.3-12.2) % Eosinophils % 1.0 (0.8-7.0) % Basophils % 0.3 (0.2-1.2) % Absolute Granulocytes 6.22 H (1.78-5.38) x10^3/uL Basophils # 0.02 (0.01-0.08) x10^3/uL Sodium (135-145) mmol/L Potassium (3.5-5.1) mmol/L Chloride (98-107) mmol/L Carbon Dioxide (22-30) mmol/L Anion Gap (5-15) MEQ/L BUN (9-20) mg/dL Creatinine (0.66-1.25) mg/dL Estimated GFR ML/MIN Glucose (74-106) mg/dL Lactic Acid (0.4-2.0) Calcium (8.4-10.2) mg/dL Total Bilirubin (0.2-1.3) mg/dL AST (17-59) U/L ALT (0-50) U/L Alkaline Phosphatase (38-126) U/L Serum Total Protein (6.3-8.2) g/dL Albumin (3.5-5.0) g/dL Procalcitonin (0.030-0.080) ng/mL Urine Color Yellow (Yellow) Urine Appearance Clear (Clear) Urine pH 5.0 (4.6-8.0) Ur Specific Castaner 1.015 (1.005-1.030) Urine Protein 30 (Negative) Urine Glucose (UA) Negative (Negative) mg/dL Urine Ketones 15 A (Negative) Urine Blood Large A (Negative) Urine Nitrite Negative (Negative) Urine Bilirubin Negative (Negative) Urine Urobilinogen 0.2 (0.2) mg/dL Ur Leukocyte Esterase Negative (Negative) U Hyaline Cast (Auto) 3-5 A (0-2) /LPF Urine Microscopic RBC 3-5 (0-5) /HPF Urine Microscopic WBC 0-2 (0-5) /HPF Ur Epithelial Cells None Seen (None Seen) /HPF Urine Bacteria None Seen (None Seen) /HPF Urine Culture Reflexed YES (NO) Influenza Type A Ag NEGATIVE (NEGATIVE) Influenza Type B Ag NEGATIVE (NEGATIVE) RSV (PCR) NEGATIVE (NEGATIVE) SARS-CoV-2 (PCR) POSITIVE A (NEGATIVE) - Progress Progress: unchanged Counseled pt/family regarding: lab results, diagnosis, need for follow-up Medical Desision Making - Discussion of managment Care discussed with:: hospitalist Agreed on:: Treatment plan, decision to admit - Diagnostic Testing Diagnostic test were ordered, analyzed, and reviewed by me: Yes Radiological Interpretation: Interpreted by me, Reviewed by me - Risk of complications Minimal Risk: Minimal risk of morbidity The pt has a mod risk of morbidity or mortality based on: Need for prescription drug management - Departure Departure Disposition: Observation Clinical Impression: COVID, Confusion and disorientation Pressure ulcer of buttock, unstageable Qualifiers: Laterality: unspecified laterality Qualified Code(s): L89.300 - Pressure ulcer of unspecified buttock, unstageable HTN (hypertension) Qualifiers: Hypertension type: primary hypertension Qualified Code(s): I10 - Essential (primary) hypertension Parkinson disease Qualifiers: Dyskinesia presence: with dyskinesia Fluctuating manifestations: with fluctuating manifestations Qualified Code(s): G20.B2 - Parkinson's disease with dyskinesia, with fluctuations Type II diabetes mellitus Qualifiers: Diabetes mellitus rodent exterminator insulin use: without rodent exterminator use Diabetes mellitus complication status: with hyperglycemia Qualified Code(s): E11.65 - Type 2 diabetes mellitus with hyperglycemia Condition: Stable Critical Care Time: No Referrals: LENA DUGGAN MD [Primary Care Provider] - Follow Up with PCP/3 days Instructions: COVID-19 ED Additional Instructions: Discharge/Care Plan CAMRYN MCCOY was seen on 09/11/24 in the Emergency Room. The patient was counseled regarding Diagnosis,Lab results, Imaging studies, need for follow up and when to return to the Emergency Room. Prescriptions given: Discharge Note I have spoken with the patient and/or caregivers. I have explained the patient's condition, diagnosis and treatment plan based on the information available to me at this time. I have answered the patient's and/or caregiver's questions and addressed any concerns. The patient and/or caregivers have as good understanding of the patient's diagnosis, condition and treatment plan as can be expected at this point. The vital signs have been stable. The patient's condition is stable and appropriate for discharge from the emergency department. The patient will pursue further outpatient evaluation with the primary care physician or other designated or consulting physician as outlined in the discharge instructions. The patient and/or caregivers are agreeable to this plan of care and follow-up instructions have been explained in detail. The patient and/or caregivers have received these instruction. The patient/and or caregivers are aware that any significant change in condition or worsening of symptoms should prompt an immediate return to this or the closest emergency department or call 911. CAMRYN MCCOY was seen on 09/11/24 n the Emergency Room. At that time you were treated for an emergent condition, during your visit Laboratory, Radiology and/or other procedures may have been ordered. It is very important that you follow-up with your Primary Care Physician LENA DUGGAN within the next 24- 48 hours to review your Emergency Room visit and the final results of testing that was ordered. Some test results such as Urine Cultures, Blood Cultures, and other cultures if ordered will not be finalized for 24-48 hours. If you do not have a Primary Care Provider please call the medical records department at [phone] to obtain a copy of your results or you may sign into our patient portal to obtain these results by visiting us @ [email or web address] and completing the following steps: 1. Click on the Patient Portal link 2. Click the Patient Self Enrollment Link to complete the enrollment form and entering your 3. Once the enrollment form is completed you will receive an email with a temporary ID and password at the email address you provided. 4. Next choose a user name and password. Your user name must be at least 4 characters long and your password must be at least 4 characters long. 5. Choose a security question from the list and provide your answer to the question. If you already have signed into the Health Portal you may access your Health Care Information 07/04 by the following steps: 1. Login to our website @ [email or web address] 2. Enter your original user name and password. FAQS [facility] Health Portal is an online tool that contains your Lab Results, Radiology Reports, Visit History, Discharge Instructions and Health Summary Lab and Radiology Results will not be available for 72 hours on the portal. The Portal is a secure site, passwords are encryted and URLs are re-written so they cannot be copied and pasted. You and authorized family members are the only ones who can access your Portal. Also there is a timeout feature that protects your information if you leave the Portal page open. If you have technical difficulty please use the Contact Us link on the page this will allow you to submit any questions you have regarding the Portal or you may contact the Medical Record Department at [phone] ext [phone]. Prescriptions: Nirmatrelvir/Ritonavir [Paxlovid 150-100 mg Pack (Eua) (Renal Dosing)] 1 each PO BID #20 tab Outpatient Orders: Physical Therapy Eval & Treat Facility: [facility], Location: PHYSICAL THERAPY
[2024-09-11] MEDS ORDERED: ATARAX 25 MG ONE (15:18)
[2024-09-11] MEDS: ATARAX 25 MG PO ONE (15:20)
--- NOTE | 2024-09-11 17:13 | PCM.HP ---
History of Present Illness - Chief Complaint Chief Complaint: covid. debility Date: 09/11/24 History of Present Illness: is a 78 year old male who is admitted after a fall. He was down on the floor for 14-24 hours. He did not suffer any injuries. He was hospitalized here with decubiti positive for pseudomonas. He was treated with Merem for 10 days and entered a rehab hospital. He checked himself out of rehab and went home but was unable to care for himself. He had fever in ER. He has cough and dyspnea. He has had mild diarrhea. No chest pain. No abdominal pain. No nausea or vomiting. No urinary complaints. He has pain from his wounds. PMH includes Parkinson's disease, sacral decubiti, Diabetes type 2, HTN, HLD. - Review of Systems Constitutional: Fever, Chills Eyes: No Symptoms Ears, Nose, & Throat: No Symptoms, No Throat Pain Respiratory: Cough, Short Of Breath Cardiac: No Symptoms, No Chest Pain, No Edema, No Palpitations, No Syncope Abdominal/Gastrointestinal: Diarrhea, No Abdominal Pain, No Nausea, No Vomiting Genitourinary Symptoms: No Symptoms, No Dysuria, No Frequency, No Hematuria Musculoskeletal: No Symptoms Skin: Decubiti Neurological: No Symptoms Psychological: No Symptoms Endocrine: No Symptoms Hematologic/Lymphatic: No Symptoms Immunological/Allergic: No Symptoms All Other Systems: Reviewed and Negative Medications & Allergies Home Medications: Home Medication List lisinopriL [Zestril] 40 mg PO DAILY 12/11/15 [History Confirmed 08/14/24] Atorvastatin Calcium [Lipitor] 80 mg PO QHS 06/09/19 [History Confirmed 08/15/24] Ezetimibe 10 mg PO QHS 06/09/19 [History Confirmed 08/15/24] Metformin HCl 500 mg [Glucophage 500 MG] 500 mg PO DAILY 06/09/19 [History Confirmed 08/14/24] Carbidopa/Levodopa [Carbidopa-Levodopa 25-100 Tab] 2 tab PO 0600 01/15/24 [History Confirmed 08/14/24] Metoprolol Tartrate 25 mg [Lopressor 25MG Tab] 50 mg PO DAILY 01/15/24 [History Confirmed 08/14/24] Carbidopa/Levodopa 25/100 mg [Sinemet 25/100 MG] 1 tab PO 1200 07/21/24 [History Confirmed 08/14/24] Furosemide 40 mg [Lasix 40 MG] 40 mg PO DAILY 08/14/24 [History Confirmed 08/14/24] Hydrocodone/Acetaminophen [[place] 10-325 mg] 1 tab PO DAILY PRN 08/14/24 [History Confirmed 08/14/24] Potassium Chloride 10 meq PO DAILY 08/14/24 [History Confirmed 08/14/24] Nirmatrelvir/Ritonavir [Paxlovid 150-100 mg Pack (Eua) (Renal Dosing)] 1 each PO BID #20 tab 09/11/24 [Rx] Allergies/Adverse Reactions: Allergies Allergy/AdvReac Type Severity Reaction Status Date / Time No Known Drug Allergies Allergy Verified 07/21/24 07:00 - Past Medical History Past Medical History: Yes Neurological History: Other ENT History: No Pertinent History Cardiac History: High Cholesterol, Hypertension Respiratory History: No Pertinent History Endocrine Medical History: Diabetes Type II Musculoskelatal History: Osteoarthritis, Other GI Medical History: No Pertinent History History: No Pertinent History Pyscho-Social History: No Pertinent History Male Reproductive Disorders: No Pertinent History Comment: SX HX; LEFT KNEE REPLACEMENT YEARS AGO, 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 PARKINSON'S - Past Surgical History Past Surgical History: Yes Neuro Surgical History: No Pertinent History Cardiac History: No Pertinent History Respiratory Surgery: No Pertinent History GI Surgical History: No Pertinent History Genitourinary Surgical Hx: No Pertinent History Musculskeletal Surgical Hx: Amputation, Orthopedic Surgery Other Surgical History: TOTAL CLEFT PALATE REPAIR. , finger amputation,left knee joint replacement - Social History Smoking Status: Never smoker Exposure to second hand smoke: No Alcohol: None Drug Use: none - Social Determinants of Health Will the patient participate in the screening: Yes Do you worry about a steady place to live?: No Do you have any problems with any of the following?: No known problems In the past 12 months,have you had to go without utilities?: No Have you or anyone in your house had to go without enough: No Transportation Issues: No Has anyone in your support network made you feel unsafe?: No Does the patient want assistance with any of the above?: No - Physical Exam Vital Signs: Vital Signs - 24 hr Temp Pulse Resp BP BP Pulse Ox 09/11/24 15:30 70 24 92/45 98 09/11/24 15:20 75 23 99 09/11/24 15:10 79 20 09/11/24 15:00 76 15 102/45 09/11/24 14:56 96 09/11/24 14:50 78 24 09/11/24 14:47 74 28 H 09/11/24 14:31 72 18 83/33 09/11/24 14:16 70 14 93/55 09/11/24 14:01 73 32 H 94/46 96 09/11/24 13:47 74 25 H 102/44 92 L 09/11/24 13:46 75 20 94 L 09/11/24 13:40 74 15 98 09/11/24 13:30 176 H 29 H 92 L 09/11/24 13:20 20 95 09/11/24 13:18 24 95 09/11/24 13:13 102 H 24 84/48 99 09/11/24 13:01 135 H 26 H 78/50 50 L 09/11/24 12:50 23 85/51 96 09/11/24 12:49 20 91 L 09/11/24 12:47 27 H 83 L 09/11/24 12:38 101.3 F 138 H 20 84/70 93 L 09/11/24 12:37 29 H 84/70 88 L General Appearance: mild distress Neurologic Exam: alert, oriented x 3, cooperative Eye Exam: PERRL/EOMI, eyes nml inspection Ears, Nose, Throat Exam: normal ENT inspection Neck Exam: normal inspection, non-tender, supple Respiratory Exam: normal breath sounds, lungs clear Cardiovascular Exam: regular rate/rhythm, normal heart sounds Gastrointestinal/Abdomen Exam: soft, normal bowel sounds, tenderness Male Genitalia Exam: normal genitalia Rectal Exam: deferred Back Exam: other (Decubiti) Extremity Exam: normal inspection Skin Exam: decubitus (Stage 3) Lymphatic Exam: No adenopathy Results - Labs Lab/Micro Results: Lab Results-Last 24 Hours 09/11/24 09/11/24 09/11/24 Range/Units 12:47 13:00 13:14 WBC 7.9 (4.23-9.07) x10^3/uL RBC 3.54 L (4.63-6.08) x10^6/uL Hgb 9.8 L (13.7-17.5) g/dL Hct 30.3 L (40.1-51.0) % MCV 85.6 (79.0-92.2) fL MCH 27.7 (25.7-32.2) pg MCHC 32.3 (32.3-36.5) g/dL RDW 13.9 (11.6-14.4) % Plt Count 200 (163-337) x10^3/uL MPV 9.4 (9.4-12.4) fL Gran % 79.3 H (34.0-67.9) % Immature Gran % (Auto) 0.6 H (0.001-0.429) % Nucleat RBC Rel Count 0.0 (0.00-0.2) % Eos # (Auto) 0.08 (0.04-0.54) x10^3/uL Immature Gran # (Auto) 0.05 H (0.001-0.031) x10^3u/L Absolute Lymphs (auto) 0.78 L (1.32-3.57) x10^3/uL Absolute Monos (auto) 0.70 (0.30-0.82) x10^3/uL Absolute Nucleated RBC 0.00 (0.00-0.012) x10^3u/L Lymphocytes % 9.9 L (21.8-53.1) % Monocytes % 8.9 (5.3-12.2) % Eosinophils % 1.0 (0.8-7.0) % Basophils % 0.3 (0.2-1.2) % Absolute Granulocytes 6.22 H (1.78-5.38) x10^3/uL Basophils # 0.02 (0.01-0.08) x10^3/uL Sodium (135-145) mmol/L Potassium (3.5-5.1) mmol/L Chloride (98-107) mmol/L Carbon Dioxide (22-30) mmol/L Anion Gap (5-15) MEQ/L BUN (9-20) mg/dL Creatinine (0.66-1.25) mg/dL Estimated GFR ML/MIN Glucose (74-106) mg/dL Lactic Acid (0.4-2.0) Calcium (8.4-10.2) mg/dL Total Bilirubin (0.2-1.3) mg/dL AST (17-59) U/L ALT (0-50) U/L Alkaline Phosphatase (38-126) U/L Creatine Kinase (55-170) U/L Serum Total Protein (6.3-8.2) g/dL Albumin (3.5-5.0) g/dL Procalcitonin (0.030-0.080) ng/mL Urine Color Yellow (Yellow) Urine Appearance Clear (Clear) Urine pH 5.0 (4.6-8.0) Ur Specific Bruno 1.015 (1.005-1.030) Urine Protein 30 (Negative) Urine Glucose (UA) Negative (Negative) mg/dL Urine Ketones 15 A (Negative) Urine Blood Large A (Negative) Urine Nitrite Negative (Negative) Urine Bilirubin Negative (Negative) Urine Urobilinogen 0.2 (0.2) mg/dL Ur Leukocyte Esterase Negative (Negative) U Hyaline Cast (Auto) 3-5 A (0-2) /LPF Urine Microscopic RBC 3-5 (0-5) /HPF Urine Microscopic WBC 0-2 (0-5) /HPF Ur Epithelial Cells None Seen (None Seen) /HPF Urine Bacteria None Seen (None Seen) /HPF Urine Culture Reflexed YES (NO) Influenza Type A Ag NEGATIVE (NEGATIVE) Influenza Type B Ag NEGATIVE (NEGATIVE) RSV (PCR) NEGATIVE (NEGATIVE) SARS-CoV-2 (PCR) POSITIVE A (NEGATIVE) 09/11/24 09/11/24 09/11/24 Range/Units 13:15 13:15 13:25 WBC (4.23-9.07) x10^3/uL RBC (4.63-6.08) x10^6/uL Hgb (13.7-17.5) g/dL Hct (40.1-51.0) % MCV (79.0-92.2) fL MCH (25.7-32.2) pg MCHC (32.3-36.5) g/dL RDW (11.6-14.4) % Plt Count (163-337) x10^3/uL MPV (9.4-12.4) fL Gran % (34.0-67.9) % Immature Gran % (Auto) (0.001-0.429) % Nucleat RBC Rel Count (0.00-0.2) % Eos # (Auto) (0.04-0.54) x10^3/uL Immature Gran # (Auto) (0.001-0.031) x10^3u/L Absolute Lymphs (auto) (1.32-3.57) x10^3/uL Absolute Monos (auto) (0.30-0.82) x10^3/uL Absolute Nucleated RBC (0.00-0.012) x10^3u/L Lymphocytes % (21.8-53.1) % Monocytes % (5.3-12.2) % Eosinophils % (0.8-7.0) % Basophils % (0.2-1.2) % Absolute Granulocytes (1.78-5.38) x10^3/uL Basophils # (0.01-0.08) x10^3/uL Sodium 137 (135-145) mmol/L Potassium 5.0 (3.5-5.1) mmol/L Chloride 106 (98-107) mmol/L Carbon Dioxide 22 (22-30) mmol/L Anion Gap 14.1 (5-15) MEQ/L BUN 43 H (9-20) mg/dL Creatinine 0.94 (0.66-1.25) mg/dL Estimated GFR 84.0 ML/MIN Glucose 138 H (74-106) mg/dL Lactic Acid 1.6 (0.4-2.0) Calcium 9.2 (8.4-10.2) mg/dL Total Bilirubin 0.90 (0.2-1.3) mg/dL AST 148 H (17-59) U/L ALT 12 (0-50) U/L Alkaline Phosphatase 85 (38-126) U/L Creatine Kinase (55-170) U/L Serum Total Protein 6.4 (6.3-8.2) g/dL Albumin 3.4 L (3.5-5.0) g/dL Procalcitonin 0.143 H (0.030-0.080) ng/mL Urine Color (Yellow) Urine Appearance (Clear) Urine pH (4.6-8.0) Ur Specific Bruno (1.005-1.030) Urine Protein (Negative) Urine Glucose (UA) (Negative) mg/dL Urine Ketones (Negative) Urine Blood (Negative) Urine Nitrite (Negative) Urine Bilirubin (Negative) Urine Urobilinogen (0.2) mg/dL Ur Leukocyte Esterase (Negative) U Hyaline Cast (Auto) (0-2) /LPF Urine Microscopic RBC (0-5) /HPF Urine Microscopic WBC (0-5) /HPF Ur Epithelial Cells (None Seen) /HPF Urine Bacteria (None Seen) /HPF Urine Culture Reflexed (NO) Influenza Type A Ag (NEGATIVE) Influenza Type B Ag (NEGATIVE) RSV (PCR) (NEGATIVE) SARS-CoV-2 (PCR) (NEGATIVE) 09/11/24 Range/Units 13:25 WBC (4.23-9.07) x10^3/uL RBC (4.63-6.08) x10^6/uL Hgb (13.7-17.5) g/dL Hct (40.1-51.0) % MCV (79.0-92.2) fL MCH (25.7-32.2) pg MCHC (32.3-36.5) g/dL RDW (11.6-14.4) % Plt Count (163-337) x10^3/uL MPV (9.4-12.4) fL Gran % (34.0-67.9) % Immature Gran % (Auto) (0.001-0.429) % Nucleat RBC Rel Count (0.00-0.2) % Eos # (Auto) (0.04-0.54) x10^3/uL Immature Gran # (Auto) (0.001-0.031) x10^3u/L Absolute Lymphs (auto) (1.32-3.57) x10^3/uL Absolute Monos (auto) (0.30-0.82) x10^3/uL Absolute Nucleated RBC (0.00-0.012) x10^3u/L Lymphocytes % (21.8-53.1) % Monocytes % (5.3-12.2) % Eosinophils % (0.8-7.0) % Basophils % (0.2-1.2) % Absolute Granulocytes (1.78-5.38) x10^3/uL Basophils # (0.01-0.08) x10^3/uL Sodium (135-145) mmol/L Potassium (3.5-5.1) mmol/L Chloride (98-107) mmol/L Carbon Dioxide (22-30) mmol/L Anion Gap (5-15) MEQ/L BUN (9-20) mg/dL Creatinine (0.66-1.25) mg/dL Estimated GFR ML/MIN Glucose (74-106) mg/dL Lactic Acid (0.4-2.0) Calcium (8.4-10.2) mg/dL Total Bilirubin (0.2-1.3) mg/dL AST (17-59) U/L ALT (0-50) U/L Alkaline Phosphatase (38-126) U/L Creatine Kinase > 1600 H (55-170) U/L Serum Total Protein (6.3-8.2) g/dL Albumin (3.5-5.0) g/dL Procalcitonin (0.030-0.080) ng/mL Urine Color (Yellow) Urine Appearance (Clear) Urine pH (4.6-8.0) Ur Specific Bruno (1.005-1.030) Urine Protein (Negative) Urine Glucose (UA) (Negative) mg/dL Urine Ketones (Negative) Urine Blood (Negative) Urine Nitrite (Negative) Urine Bilirubin (Negative) Urine Urobilinogen (0.2) mg/dL Ur Leukocyte Esterase (Negative) U Hyaline Cast (Auto) (0-2) /LPF Urine Microscopic RBC (0-5) /HPF Urine Microscopic WBC (0-5) /HPF Ur Epithelial Cells (None Seen) /HPF Urine Bacteria (None Seen) /HPF Urine Culture Reflexed (NO) Influenza Type A Ag (NEGATIVE) Influenza Type B Ag (NEGATIVE) RSV (PCR) (NEGATIVE) SARS-CoV-2 (PCR) (NEGATIVE) - Radiology Impressions Radiology Exams & Impressions: Radiology Procedures Category Date Time Status CHEST 1 VIEW (PORTABLE) Stat Exams 09/11/24 15:05 Taken Assessment/Plan (1) Rhabdomyolysis Current Visit: Yes Status: Acute Assessment & Plan: Patient was down on ground for 14-24 hours CPK markedly elevated. Renal function is ok Plan IV Fluids Recheck CPK in am Code(s): M62.82 - RHABDOMYOLYSIS (2) COVID-19 Current Visit: Yes Status: Acute Assessment & Plan: Patient had fever, cough and dyspnea Oxygenation is good Do not plan antiviral treatment Does not need steroids at this point Cxray shows no infiltrates Code(s): U07.1 - COVID-19 (3) Pressure ulcer of buttock, unstageable Current Visit: Yes Status: Chronic Qualifiers: Laterality: unspecified laterality Qualified Code(s): L89.300 - Pressure ulcer of unspecified buttock, unstageable Assessment & Plan: Will repeat cultures He has previously cultured out pseudomonas sensitive to Merem Will restart Merem Plan wound care Code(s): L89.300 - PRESSURE ULCER OF UNSPECIFIED BUTTOCK, UNSTAGEABLE (4) HTN (hypertension) Current Visit: Yes Status: Chronic Qualifiers: Hypertension type: primary hypertension Qualified Code(s): I10 - Essential (primary) hypertension Assessment & Plan: BP is low at present Will hold BP meds Code(s): I10 - ESSENTIAL (PRIMARY) HYPERTENSION (5) Parkinson disease Current Visit: Yes Status: Chronic Qualifiers: Dyskinesia presence: with dyskinesia Fluctuating manifestations: with fluctuating manifestations Qualified Code(s): G20.B2 - Parkinson's disease with dyskinesia, with fluctuations Assessment & Plan: Continue home meds Code(s): G20.A1 - PARKINSON'S DIS W/O DYSKINESIA, W/O MENTION OF FLUCTUATIONS (6) Type II diabetes mellitus Current Visit: Yes Status: Chronic Qualifiers: Diabetes mellitus meterman insulin use: without care home use Diabetes mellitus complication status: with hyperglycemia Qualified Code(s): E11.65 - Type 2 diabetes mellitus with hyperglycemia Assessment & Plan: Monitor BS. SS insulin. (7) Anemia Current Visit: No Status: Chronic Assessment & Plan: Hgb=9.8. Will trend hgb. Anemia of chronic disease Code(s): D64.9 - ANEMIA, UNSPECIFIED (8) Hyperlipidemia Current Visit: No Status: Chronic Assessment & Plan: Continue home meds Code(s): E78.5 - HYPERLIPIDEMIA, UNSPECIFIED Telemedicine Encounter - Telemedicine Encounter Telemedicine Encounter: "The entirety of this encounter was performed via Telemedicine" This visit was performed using real-time audio and video connection between my location and thepatients locationwith the assistance of a surrogateat the patients location. Written or verbal consent was obtained from the patient/guardian to perform this visit usingsynchrHiMomtelemedicine [email or web address]. Any patient questions regarding the telemedicine interaction were answered.
[2024-09-11] MEDS ORDERED: TYLENOL 325 MG PO PRN (17:17)
[2024-09-11] MEDS ORDERED: NORCO 10-325 MG PO PRN (17:21)
[2024-09-11] MEDS: Sodium Chloride 0.9% 1000 ML 1,000 ML IV SCH (18:26)
--- NOTE | 2024-09-11 20:22 | XRAY ---
Indication: Weakness. Comparison: July 21, 2024 Portable chest demonstrates improving right infrahilar infiltrate/atelectasis with mild residual. Remaining heart and lungs unremarkable. Bony thorax intact again with osteopenia and mild degenerative changes. No new cardiopulmonary abnormalities.
[2024-09-11] MEDS ORDERED: Merrem IV ONE (21:16)
[2024-09-11] MEDS ORDERED: ZOCOR 20MG ONE (21:17)
[2024-09-11] MEDS ORDERED: Sodium Chloride 100ML MINI-BAG PLUS 100 ML IV ONE (21:17)
[2024-09-11] MEDS: Merrem 1 GM in Sodium Chloride 100ML MINI-BAG PLUS 100 ML IV SCH (21:49)
[2024-09-11] MEDS: Zetia 10 MG PO SCH (21:49)
[2024-09-11] MEDS ORDERED: NON-FORMULARY ITEM (Atorvastatin Calcium [Lipitor] 80 MG Tablet) PO SCH (22:00)
[2024-09-11] MEDS: ZOCOR 20MG PO SCH (22:32)
[2024-09-12] MEDS ORDERED: Merrem IV ONE (05:12)
[2024-09-12] MEDS ORDERED: Sodium Chloride 100ML MINI-BAG PLUS 100 ML IV ONE (05:12)
[2024-09-12] MEDS: Sinemet 25/100 MG PO SCH ×2 (05:15→12:59)
--- NOTE | 2024-09-12 05:41 | PCM.NOTE ---
Date and Time: 09/12/24 0535 Subjective Assessment: HPI: is a 78 year old male who is admitted after a fall. He was down on the floor for 14-24 hours. He did not suffer any injuries. He was hospitalized here with decubiti positive for pseudomonas. He was treated with Merem for 10 days and entered a rehab hospital. He checked himself out of rehab and went home but was unable to care for himself. He had fever in ER. He has cough and dyspnea. He has had mild diarrhea. No chest pain. No abdominal pain. No nausea or vomiting. No urinary complaints. He has pain from his wounds. PMH includes Parkinson's disease, sacral decubiti, Diabetes type 2, HTN, HLD. 09/12/24: Met with patient bedside. Endorses pain to buttocks and left heel. CK level > 3 200. Wound culture pending. BP soft this morning. Plan for fluid bolus, continuation of Merrem, and surgery consult. - Review of Systems Constitutional: Weakness Eyes: No Symptoms Ears, Nose, & Throat: No Symptoms Respiratory: Cough Cardiac: No Symptoms Abdominal/Gastrointestinal: No Symptoms Genitourinary Symptoms: No Symptoms Musculoskeletal: No Symptoms Skin: Decubiti Neurological: No Symptoms Psychological: No Symptoms Endocrine: No Symptoms Hematologic/Lymphatic: No Symptoms Immunological/Allergic: No Symptoms Objective Exam General Appearance: no apparent distress Neurologic Exam: alert, oriented x 3, cooperative Skin Exam: normal color, other (see wound assessment) Wound Assessment: Skin/Wound Assessment Wound/Incision Assessment Start: 09/11/24 20:04 Text: Status: Active Freq: Q6H Protocol: Document 09/12/24 02:00 MS (Rec: 09/12/24 02:49 MS [id number]) Wound/Incision Assessment Intergluteal Cleft Wound Assessment Shift Assessment Wound Type Pressure Ulcer Wound Stage Unstageable Dressing Status Dry & Intact Drainage Amount Minimal Drainage Description Yellow Drainage Odor Foul Odor Wound Bed Greatest Portion Yellow (Slough) Surrounding Tissue Indurated,Tunnelling Comment Superior wound: 7cm x 5cm x 4cm, brown eschar present, unstageable, tunneling enters into inferior wound inferior wound: 8cm x 5cm x 4cm, brown eschar present, tunneling enters into superior wound Wet to dry 2" stretch gauze packing, abd pad, and foam tape in place and clean, dry, and intact. Wound Photo Photo Taken Yes Comment: taken by ELIESER Gates on admission Eye Exam: PERRL Ears, Nose, Throat Exam: normal ENT inspection Neck Exam: normal inspection Respiratory Exam: normal breath sounds, lungs clear Cardiovascular Exam: regular rate/rhythm, normal heart sounds Gastrointestinal/Abdomen Exam: soft, normal bowel sounds Extremity Exam: inflammation, swelling (BLE) Back Exam: normal inspection Male Genitalia Exam: deferred Rectal Exam: deferred Objective Data Vital Signs: Vital Signs - 24 hr Temp Pulse Resp BP BP BP Pulse Ox 09/12/24 04:00 98.3 F 72 16 88/52 94 L 09/12/24 00:15 87/51 09/12/24 00:00 98.2 F 69 16 75/42 93 L 09/11/24 20:00 99.0 F 83 18 122/59 95 09/11/24 18:58 98.9 F 73 20 89/48 84/70 97 09/11/24 17:18 97 09/11/24 15:30 70 24 92/45 98 09/11/24 15:20 75 23 99 09/11/24 15:10 79 20 09/11/24 15:00 76 15 102/45 09/11/24 14:56 96 09/11/24 14:50 78 24 09/11/24 14:47 74 28 H 09/11/24 14:31 72 18 83/33 09/11/24 14:16 70 14 93/55 09/11/24 14:01 73 32 H 94/46 96 09/11/24 13:47 74 25 H 102/44 92 L 09/11/24 13:46 75 20 94 L 09/11/24 13:40 74 15 98 09/11/24 13:30 176 H 29 H 92 L 09/11/24 13:20 20 95 09/11/24 13:18 24 95 09/11/24 13:13 102 H 24 84/48 99 09/11/24 13:01 135 H 26 H 78/50 50 L 09/11/24 12:50 23 85/51 96 09/11/24 12:49 20 91 L 09/11/24 12:47 27 H 83 L 09/11/24 12:38 101.3 F 138 H 20 84/70 93 L 09/11/24 12:37 29 H 84/70 88 L Pain Assessment - Last Documented Pain Intensity 0 Pain Scale Used 0-10 Pain Scale Intake and Output: Intake & Output 09/09/24 09/10/24 09/11/24 09/12/24 11:59 11:59 11:59 11:59 Intake Total 60 Output Total 20 Balance 40 Weight 111 kg Lab Results: Lab Results-Last 24 Hours 09/11/24 09/11/24 09/11/24 Range/Units 12:47 13:00 13:14 WBC 7.9 (4.23-9.07) x10^3/uL RBC 3.54 L (4.63-6.08) x10^6/uL Hgb 9.8 L (13.7-17.5) g/dL Hct 30.3 L (40.1-51.0) % MCV 85.6 (79.0-92.2) fL MCH 27.7 (25.7-32.2) pg MCHC 32.3 (32.3-36.5) g/dL RDW 13.9 (11.6-14.4) % Plt Count 200 (163-337) x10^3/uL MPV 9.4 (9.4-12.4) fL Gran % 79.3 H (34.0-67.9) % Immature Gran % (Auto) 0.6 H (0.001-0.429) % Nucleat RBC Rel Count 0.0 (0.00-0.2) % Eos # (Auto) 0.08 (0.04-0.54) x10^3/uL Immature Gran # (Auto) 0.05 H (0.001-0.031) x10^3u/L Absolute Lymphs (auto) 0.78 L (1.32-3.57) x10^3/uL Absolute Monos (auto) 0.70 (0.30-0.82) x10^3/uL Absolute Nucleated RBC 0.00 (0.00-0.012) x10^3u/L Lymphocytes % 9.9 L (21.8-53.1) % Monocytes % 8.9 (5.3-12.2) % Eosinophils % 1.0 (0.8-7.0) % Basophils % 0.3 (0.2-1.2) % Absolute Granulocytes 6.22 H (1.78-5.38) x10^3/uL Basophils # 0.02 (0.01-0.08) x10^3/uL Sodium (135-145) mmol/L Potassium (3.5-5.1) mmol/L Chloride (98-107) mmol/L Carbon Dioxide (22-30) mmol/L Anion Gap (5-15) MEQ/L BUN (9-20) mg/dL Creatinine (0.66-1.25) mg/dL Estimated GFR ML/MIN Glucose (74-106) mg/dL POC Glucometer (74 to 106) mg/dL Hemoglobin A1c (4.5-6.0) % Lactic Acid (0.4-2.0) Calcium (8.4-10.2) mg/dL Total Bilirubin (0.2-1.3) mg/dL AST (17-59) U/L ALT (0-50) U/L Alkaline Phosphatase (38-126) U/L Creatine Kinase (55-170) U/L Serum Total Protein (6.3-8.2) g/dL Albumin (3.5-5.0) g/dL Procalcitonin (0.030-0.080) ng/mL Urine Color Yellow (Yellow) Urine Appearance Clear (Clear) Urine pH 5.0 (4.6-8.0) Ur Specific Cressey 1.015 (1.005-1.030) Urine Protein 30 (Negative) Urine Glucose (UA) Negative (Negative) mg/dL Urine Ketones 15 A (Negative) Urine Blood Large A (Negative) Urine Nitrite Negative (Negative) Urine Bilirubin Negative (Negative) Urine Urobilinogen 0.2 (0.2) mg/dL Ur Leukocyte Esterase Negative (Negative) U Hyaline Cast (Auto) 3-5 A (0-2) /LPF Urine Microscopic RBC 3-5 (0-5) /HPF Urine Microscopic WBC 0-2 (0-5) /HPF Ur Epithelial Cells None Seen (None Seen) /HPF Urine Bacteria None Seen (None Seen) /HPF Urine Culture Reflexed YES (NO) Influenza Type A Ag NEGATIVE (NEGATIVE) Influenza Type B Ag NEGATIVE (NEGATIVE) RSV (PCR) NEGATIVE (NEGATIVE) SARS-CoV-2 (PCR) POSITIVE A (NEGATIVE) 12/28/24 12/28/24 12/28/24 Range/Units 13:15 13:15 13:15 WBC (4.23-9.07) x10^3/uL RBC (4.63-6.08) x10^6/uL Hgb (13.7-17.5) g/dL Hct (40.1-51.0) % MCV (79.0-92.2) fL MCH (25.7-32.2) pg MCHC (32.3-36.5) g/dL RDW (11.6-14.4) % Plt Count (163-337) x10^3/uL MPV (9.4-12.4) fL Gran % (34.0-67.9) % Immature Gran % (Auto) (0.001-0.429) % Nucleat RBC Rel Count (0.00-0.2) % Eos # (Auto) (0.04-0.54) x10^3/uL Immature Gran # (Auto) (0.001-0.031) x10^3u/L Absolute Lymphs (auto) (1.32-3.57) x10^3/uL Absolute Monos (auto) (0.30-0.82) x10^3/uL Absolute Nucleated RBC (0.00-0.012) x10^3u/L Lymphocytes % (21.8-53.1) % Monocytes % (5.3-12.2) % Eosinophils % (0.8-7.0) % Basophils % (0.2-1.2) % Absolute Granulocytes (1.78-5.38) x10^3/uL Basophils # (0.01-0.08) x10^3/uL Sodium 137 (135-145) mmol/L Potassium 5.0 (3.5-5.1) mmol/L Chloride 106 (98-107) mmol/L Carbon Dioxide 22 (22-30) mmol/L Anion Gap 14.1 (5-15) MEQ/L BUN 43 H (9-20) mg/dL Creatinine 0.94 (0.66-1.25) mg/dL Estimated GFR 84.0 ML/MIN Glucose 138 H (74-106) mg/dL POC Glucometer (74 to 106) mg/dL Hemoglobin A1c 6.60 H (4.5-6.0) % Lactic Acid (0.4-2.0) Calcium 9.2 (8.4-10.2) mg/dL Total Bilirubin 0.90 (0.2-1.3) mg/dL AST 148 H (17-59) U/L ALT 12 (0-50) U/L Alkaline Phosphatase 85 (38-126) U/L Creatine Kinase (55-170) U/L Serum Total Protein 6.4 (6.3-8.2) g/dL Albumin 3.4 L (3.5-5.0) g/dL Procalcitonin 0.143 H (0.030-0.080) ng/mL Urine Color (Yellow) Urine Appearance (Clear) Urine pH (4.6-8.0) Ur Specific Cressey (1.005-1.030) Urine Protein (Negative) Urine Glucose (UA) (Negative) mg/dL Urine Ketones (Negative) Urine Blood (Negative) Urine Nitrite (Negative) Urine Bilirubin (Negative) Urine Urobilinogen (0.2) mg/dL Ur Leukocyte Esterase (Negative) U Hyaline Cast (Auto) (0-2) /LPF Urine Microscopic RBC (0-5) /HPF Urine Microscopic WBC (0-5) /HPF Ur Epithelial Cells (None Seen) /HPF Urine Bacteria (None Seen) /HPF Urine Culture Reflexed (NO) Influenza Type A Ag (NEGATIVE) Influenza Type B Ag (NEGATIVE) RSV (PCR) (NEGATIVE) SARS-CoV-2 (PCR) (NEGATIVE) 09/11/24 09/11/24 09/11/24 Range/Units 13:25 13:25 21:36 WBC (4.23-9.07) x10^3/uL RBC (4.63-6.08) x10^6/uL Hgb (13.7-17.5) g/dL Hct (40.1-51.0) % MCV (79.0-92.2) fL MCH (25.7-32.2) pg MCHC (32.3-36.5) g/dL RDW (11.6-14.4) % Plt Count (163-337) x10^3/uL MPV (9.4-12.4) fL Gran % (34.0-67.9) % Immature Gran % (Auto) (0.001-0.429) % Nucleat RBC Rel Count (0.00-0.2) % Eos # (Auto) (0.04-0.54) x10^3/uL Immature Gran # (Auto) (0.001-0.031) x10^3u/L Absolute Lymphs (auto) (1.32-3.57) x10^3/uL Absolute Monos (auto) (0.30-0.82) x10^3/uL Absolute Nucleated RBC (0.00-0.012) x10^3u/L Lymphocytes % (21.8-53.1) % Monocytes % (5.3-12.2) % Eosinophils % (0.8-7.0) % Basophils % (0.2-1.2) % Absolute Granulocytes (1.78-5.38) x10^3/uL Basophils # (0.01-0.08) x10^3/uL Sodium (135-145) mmol/L Potassium (3.5-5.1) mmol/L Chloride (98-107) mmol/L Carbon Dioxide (22-30) mmol/L Anion Gap (5-15) MEQ/L BUN (9-20) mg/dL Creatinine (0.66-1.25) mg/dL Estimated GFR ML/MIN Glucose (74-106) mg/dL POC Glucometer 91 (74 to 106) mg/dL Hemoglobin A1c (4.5-6.0) % Lactic Acid 1.6 (0.4-2.0) Calcium (8.4-10.2) mg/dL Total Bilirubin (0.2-1.3) mg/dL AST (17-59) U/L ALT (0-50) U/L Alkaline Phosphatase (38-126) U/L Creatine Kinase > 1600 H (55-170) U/L Serum Total Protein (6.3-8.2) g/dL Albumin (3.5-5.0) g/dL Procalcitonin (0.030-0.080) ng/mL Urine Color (Yellow) Urine Appearance (Clear) Urine pH (4.6-8.0) Ur Specific [place]sey (1.005-1.030) Urine Protein (Negative) Urine Glucose (UA) (Negative) mg/dL Urine Ketones (Negative) Urine Blood (Negative) Urine Nitrite (Negative) Urine Bilirubin (Negative) Urine Urobilinogen (0.2) mg/dL Ur Leukocyte Esterase (Negative) U Hyaline Cast (Auto) (0-2) /LPF Urine Microscopic RBC (0-5) /HPF Urine Microscopic WBC (0-5) /HPF Ur Epithelial Cells (None Seen) /HPF Urine Bacteria (None Seen) /HPF Urine Culture Reflexed (NO) Influenza Type A Ag (NEGATIVE) Influenza Type B Ag (NEGATIVE) RSV (PCR) (NEGATIVE) SARS-CoV-2 (PCR) (NEGATIVE) Radiology Exams: Radiology Procedures Category Date Time Status CHEST 1 VIEW (PORTABLE) Stat Exams 09/11/24 15:05 Completed Multi-Disciplinary Progress Notes: Multi-Disciplinary Progress Notes 09/11/24 17:18 Respiratory Note by Aviva De La Garza This RT called to get sat on pt. Pt's fingers are cold. Pt's sats are 97% with ear probe. Initialized on 09/11/24 17:18 - END OF NOTE Assessment/Plan (1) COVID-19 Current Visit: Yes Status: Acute Assessment & Plan: -CXR with no infiltrates -Oxygenation is good -no need for steroids -Do not plan antiviral treatment Code(s): U07.1 - COVID-19 (2) Rhabdomyolysis Current Visit: Yes Status: Acute Assessment & Plan: -Patient was down on ground for 14-24 hours -Initial CPK reviewed at >3200> >1600 -IVF -Trend CPK level Code(s): M62.82 - RHABDOMYOLYSIS (3) HTN (hypertension) Current Visit: Yes Status: Chronic Qualifiers: Hypertension type: primary hypertension Qualified Code(s): I10 - Essential (primary) hypertension Assessment & Plan: -BP soft - hold antihypertensives - IVF bolus Code(s): I10 - ESSENTIAL (PRIMARY) HYPERTENSION (4) Parkinson disease Current Visit: Yes Status: Chronic Qualifiers: Dyskinesia presence: with dyskinesia Fluctuating manifestations: with fluctuating manifestations Qualified Code(s): G20.B2 - Parkinson's disease with dyskinesia, with fluctuations Assessment & Plan: -continue home meds Code(s): G20.A1 - PARKINSON'S DIS W/O DYSKINESIA, W/O MENTION OF FLUCTUATIONS (5) Pressure ulcer of buttock, unstageable Current Visit: Yes Status: Chronic Qualifiers: Laterality: unspecified laterality Qualified Code(s): L89.300 - Pressure ulcer of unspecified buttock, unstageable Assessment & Plan: -Repeat cultures pending -Previous cultures reviewed with pseudomonas sensitive to Merem -Merem initiated -Will have PT evaluate and plan wound care -Surgery consult Code(s): L89.300 - PRESSURE ULCER OF UNSPECIFIED BUTTOCK, UNSTAGEABLE (6) Type II diabetes mellitus Current Visit: Yes Status: Chronic Qualifiers: Diabetes mellitus alf insulin use: without manager long term care use Diabetes mellitus complication status: with hyperglycemia Qualified Code(s): E11.65 - Type 2 diabetes mellitus with hyperglycemia Assessment & Plan: -ADA diet -SSI -accuchecks -A1c 6.60 (7) Anemia Current Visit: No Status: Chronic Assessment & Plan: -Chronic and at baseline -Reviewed cbc -transfuse if < 7 -iron studies -ferrous sulfate Code(s): D64.9 - ANEMIA, UNSPECIFIED (8) Hyperlipidemia Current Visit: No Status: Chronic Assessment & Plan: -continue statin Code(s): E78.5 - HYPERLIPIDEMIA, UNSPECIFIED (9) Obesity (BMI 30-39.9) Current Visit: No Status: Chronic Assessment & Plan: -advised diet and exercise Code(s): E66.9 - OBESITY, UNSPECIFIED
[2024-09-12 07:24] LABS: Absolute Neutrophil Ct (ANC) 4.03 x10^3/uL (1.78-5.38); BASOPHIL % 0.3 % (0.2-1.2); Basophil (Absolute #) 0.02 x10^3/uL (0.01-0.08); Eosinophil % 2.1 % (0.8-7.0); Eosinophil (Absolute #) 0.15 x10^3/uL (0.04-0.54); Hematocrit 28.4 % (40.1-51.0); Hemoglobin 8.9 g/dL (13.7-17.5); IMMATURE GRAN # 0.03 x10^3u/L (0.001-0.031); IMMATURE GRAN % 0.4 % (0.001-0.429); Lymphocyte (Absolute #) 2.25 x10^3/uL (1.32-3.57); Lymphocytes % 31.5 % (21.8-53.1); Mean Corpuscular Hemoglobin 27.9 pg (25.7-32.2); Mean Corpuscular Hgb Concent. 31.3 g/dL (32.3-36.5); Mean Platelet Volume 9.2 fL (9.4-12.4); Monocyte (Absolute #) 0.66 x10^3/uL (0.30-0.82); Monocytes % 9.2 % (5.3-12.2); Neutrophil % 56.5 % (34.0-67.9); Platelet Count 166 x10^3/uL (163-337); Red Blood Count 3.19 x10^6/uL (4.63-6.08); Red Cell Distribution Width 14.1 % (11.6-14.4); White Blood Count 7.1 x10^3/uL (4.23-9.07)
[2024-09-12 07:49] LABS: ANION GAP 10.4 MEQ/L (5-15); BILIRUBIN,TOTAL 0.6 mg/dL (0.2-1.3); Calcium 8.4 mg/dL (8.4-10.2); Creatinine 1 0.83 mg/dL (0.66-1.25); EST GLOMERULAR FILTRATION RATE 90.7 ML/MIN; PREALBUMIN 7.82 mg/dL (17.6-36.0); Potassium 4.6 mmol/L (3.5-5.1); Total Protein 6.1 g/dL (6.3-8.2)
[2024-09-12] MEDS: Sodium Chloride 0.9% 1000 ML 1,000 ML IV STA (08:32)
[2024-09-12] MEDS: Protonix 40MG Tablet PO SCH (12:59)
[2024-09-12] MEDS: ENOXAPARIN SODIUM SQ SCH (12:59)
[2024-09-12] MEDS: TYLENOL 325 MG PO PRN (13:38)
[2024-09-13 06:07] LABS: Absolute Neutrophil Ct (ANC) 2.42 x10^3/uL (1.78-5.38); BASOPHIL % 0.4 % (0.2-1.2); Basophil (Absolute #) 0.02 x10^3/uL (0.01-0.08); Eosinophil % 6.6 % (0.8-7.0); Eosinophil (Absolute #) 0.34 x10^3/uL (0.04-0.54); Hematocrit 24.7 % (40.1-51.0); Hemoglobin 7.9 g/dL (13.7-17.5); IMMATURE GRAN # 0.03 x10^3u/L (0.001-0.031); IMMATURE GRAN % 0.6 % (0.001-0.429); Lymphocyte (Absolute #) 1.94 x10^3/uL (1.32-3.57); Lymphocytes % 37.5 % (21.8-53.1); Mean Cell Volume 86.7 fL (79.0-92.2); Mean Corpuscular Hemoglobin 27.7 pg (25.7-32.2); Mean Platelet Volume 9.1 fL (9.4-12.4); Monocyte (Absolute #) 0.42 x10^3/uL (0.30-0.82); Monocytes % 8.1 % (5.3-12.2); Neutrophil % 46.8 % (34.0-67.9); Platelet Count 145 x10^3/uL (163-337); Red Blood Count 2.85 x10^6/uL (4.63-6.08); Red Cell Distribution Width 14.2 % (11.6-14.4); White Blood Count 5.2 x10^3/uL (4.23-9.07)
[2024-09-13] MEDS ORDERED: Sensorcaine 0.25% 10 ML ONE (12:25)
[2024-09-13 12:47] LABS: ALBUMIN 2.9 g/dL (3.5-5.0); ANION GAP 9.5 MEQ/L (5-15); BILIRUBIN,TOTAL 0.5 mg/dL (0.2-1.3); Calcium 8.2 mg/dL (8.4-10.2); Creatinine 1 0.72 mg/dL (0.66-1.25); EST GLOMERULAR FILTRATION RATE 94.7 ML/MIN
[2024-09-13] MEDS ORDERED: SUBLIMAZE 100 MCG/2 ML ONE (13:12)
[2024-09-13] MEDS ORDERED: Amidate 20 MG/10 ML IV ONE (13:12)
[2024-09-13] MEDS ORDERED: propofoL IV ONE (13:12)
[2024-09-13] MEDS ORDERED: Decadron 4 MG INJ ONE (13:13)
[2024-09-13] MEDS ORDERED: Zofran 4 MG/2 ML VIAL ONE (13:13)
[2024-09-13] MEDS ORDERED: Xylocaine-Mpf 2% 5 Ml Vial ONE (13:13)
[2024-09-13] MEDS: PHARMACY DOSING REQUIRED: VANCOMYCIN IV STA (13:48)
[2024-09-13] MEDS ORDERED: Robaxin PO ONE (13:53)
[2024-09-13] MEDS ORDERED: PHENYLEPHRINE HCL ONE (14:07)
--- NOTE | 2024-09-13 14:10 | PCM.NOTE ---
Date and Time: 09/13/24 5127 Subjective Assessment: is a 78 year old male with PMHX of hyperlipidemia, HTN, type II DM, OA, and Parkinson's. He was admitted on 09/11/24 after a fall. He was down on the floor for 14-24 hours. He did not suffer any injuries. He was hospitalized here with a coccyx wound that was positive for pseudomonas. He was treated with Merrem for 10 days and entered a rehab hospital. He checked himself out of rehab and went home but was unable to care for himself. He had fever in ER. He has cough and dyspnea. He has had mild diarrhea. No chest pain. No abdominal pain. No nausea or vomiting. No urinary complaints. He has pain from his wounds. CK level remains > 3200 despite IV fluids. Continue IV Merrem. Surgery consulted and took to OR today for debridement. Wound culture gram positive and sensitivity pending, vancomycin started. BC also Gram + with sensitivity pending. Pt has a wadsworth in place to assist in healing of wound as he has incontinence. He reports he is feeling frustrated and is going to dicuss with surgery about a colostomy to aide in healing of his wound. He has BLLE edema and refuses JAYY hose. Elevate legs to decrease edema. He denies CP, SOB, abd pain, N/V. - Review of Systems Constitutional: No Fever, No Chills Eyes: No Symptoms Ears, Nose, & Throat: No Symptoms Respiratory: No Cough, No Short Of Breath Cardiac: Edema (BLLE), No Chest Pain, No Syncope Abdominal/Gastrointestinal: No Abdominal Pain, No Nausea, No Vomiting, No Diarrhea Genitourinary Symptoms: No Dysuria Musculoskeletal: No Back Pain, No Neck Pain Skin: Decubiti, No Rash Neurological: No Dizziness, No Focal Weakness, No Sensory Changes Psychological: No Symptoms Endocrine: No Symptoms Hematologic/Lymphatic: No Symptoms Immunological/Allergic: No Symptoms Objective Exam General Appearance: no apparent distress, alert, obese Neurologic Exam: alert, oriented x 3, normal mood/affect, nml cerebellar function, sensation nml, agitation, No motor deficits Skin Exam: normal color, warm, dry, decubitus (see pics in chart) Wound Assessment: Skin/Wound Assessment Wound/Incision Assessment Start: 09/11/24 20:04 Text: Status: Active Freq: Q6H Protocol: Document 09/13/24 08:00 RB (Rec: 09/13/24 09:45 RB [id number]) Wound/Incision Assessment Intergluteal Cleft Wound Assessment Shift Assessment Wound Type Pressure Ulcer Wound Stage Unstageable Dressing Status Dry & Intact Drainage Amount Minimal Drainage Description Yellow Drainage Odor Foul Odor Wound Bed Greatest Portion Yellow (Slough) Surrounding Tissue Indurated,Tunnelling Comment Superior wound: 7cm x 5cm x 4cm, yellow/brown eschar/ slough present, unstageable, tunneling enters into inferior wound inferior wound: 8cm x 5cm x 4cm, yellow/brown eschar/ slough present, tunneling enters into superior wound - dementions remain true, pt will not allow nurse to fully assess at this time, states he will talk only to the surgery , he has ideas about treatment , pt very irritable and uncooperative at this time Wound Photo Photo Taken No Comment: photos taken at admission Eye Exam: PERRL, EOMI, eyes nml inspection Ears, Nose, Throat Exam: normal ENT inspection, pharynx normal, moist mucous membranes Neck Exam: normal inspection, non-tender, supple, full range of motion Respiratory Exam: normal breath sounds, lungs clear, No respiratory distress Cardiovascular Exam: regular rate/rhythm, normal heart sounds, edema (BLLE + 3 pitting) Gastrointestinal/Abdomen Exam: soft, No tenderness, No mass Extremity Exam: normal inspection, normal range of motion Back Exam: normal inspection, normal range of motion, No CVA tenderness, No vertebral tenderness Male Genitalia Exam: deferred Rectal Exam: deferred Objective Data Vital Signs: Vital Signs - 24 hr Temp Pulse Resp BP Pulse Ox 09/13/24 12:38 98.3 F 76 20 123/56 97 09/13/24 11:55 98.3 F 76 20 123/56 97 09/13/24 08:33 96 09/13/24 08:00 98.8 F 80 16 114/57 96 09/13/24 04:00 98.4 F 67 17 97/52 93 L 09/12/24 23:28 98.6 F 80 18 112/64 94 L 09/12/24 22:22 94 L 09/12/24 20:00 98.6 F 81 16 105/55 94 L 09/12/24 16:12 98.7 F 77 23 97/52 94 L 09/12/24 14:45 70 85/48 Pain Assessment - Last Documented Pain Intensity 0 Pain Scale Used 0-10 Pain Scale Intake and Output: Intake & Output 09/11/24 09/12/24 09/13/24 09/14/24 11:59 11:59 11:59 11:59 Intake Total 1438 4175 Output Total 1680 1000 Balance -242 3175 Weight 111 kg 111 kg Lab Results: Lab Results-Last 24 Hours 09/12/24 09/12/24 09/13/24 Range/Units 16:00 22:12 05:50 WBC (4.23-9.07) x10^3/uL RBC (4.63-6.08) x10^6/uL Hgb (13.7-17.5) g/dL Hct (40.1-51.0) % MCV (79.0-92.2) fL MCH (25.7-32.2) pg MCHC (32.3-36.5) g/dL RDW (11.6-14.4) % Plt Count (163-337) x10^3/uL MPV (9.4-12.4) fL Gran % (34.0-67.9) % Immature Gran % (Auto) (0.001-0.429) % Nucleat RBC Rel Count (0.00-0.2) % Eos # (Auto) (0.04-0.54) x10^3/uL Immature Gran # (Auto) (0.001-0.031) x10^3u/L Absolute Lymphs (auto) (1.32-3.57) x10^3/uL Absolute Monos (auto) (0.30-0.82) x10^3/uL Absolute Nucleated RBC (0.00-0.012) x10^3u/L Lymphocytes % (21.8-53.1) % Monocytes % (5.3-12.2) % Eosinophils % (0.8-7.0) % Basophils % (0.2-1.2) % Absolute Granulocytes (1.78-5.38) x10^3/uL Basophils # (0.01-0.08) x10^3/uL Sodium (135-145) mmol/L Potassium (3.5-5.1) mmol/L Chloride (98-107) mmol/L Carbon Dioxide (22-30) mmol/L Anion Gap (5-15) MEQ/L BUN (9-20) mg/dL Creatinine (0.66-1.25) mg/dL Estimated GFR ML/MIN Glucose (74-106) mg/dL POC Glucometer 88 100 (74 to 106) mg/dL Calcium (8.4-10.2) mg/dL Total Bilirubin (0.2-1.3) mg/dL AST (17-59) U/L ALT (0-50) U/L Alkaline Phosphatase (38-126) U/L Creatine Kinase > 3200 H (55-170) U/L NT-Pro-B Natriuret Pep (<300) pg/mL Serum Total Protein (6.3-8.2) g/dL Albumin (3.5-5.0) g/dL 09/13/24 09/13/24 09/13/24 Range/Units 05:50 07:25 11:22 WBC 5.2 (4.23-9.07) x10^3/uL RBC 2.85 L (4.63-6.08) x10^6/uL Hgb 7.9 L (13.7-17.5) g/dL Hct 24.7 L (40.1-51.0) % MCV 86.7 (79.0-92.2) fL MCH 27.7 (25.7-32.2) pg MCHC 32.0 L (32.3-36.5) g/dL RDW 14.2 (11.6-14.4) % Plt Count 145 L (163-337) x10^3/uL MPV 9.1 L (9.4-12.4) fL Gran % 46.8 (34.0-67.9) % Immature Gran % (Auto) 0.6 H (0.001-0.429) % Nucleat RBC Rel Count 0.0 (0.00-0.2) % Eos # (Auto) 0.34 (0.04-0.54) x10^3/uL Immature Gran # (Auto) 0.03 (0.001-0.031) x10^3u/L Absolute Lymphs (auto) 1.94 (1.32-3.57) x10^3/uL Absolute Monos (auto) 0.42 (0.30-0.82) x10^3/uL Absolute Nucleated RBC 0.00 (0.00-0.012) x10^3u/L Lymphocytes % 37.5 (21.8-53.1) % Monocytes % 8.1 (5.3-12.2) % Eosinophils % 6.6 (0.8-7.0) % Basophils % 0.4 (0.2-1.2) % Absolute Granulocytes 2.42 (1.78-5.38) x10^3/uL Basophils # 0.02 (0.01-0.08) x10^3/uL Sodium (135-145) mmol/L Potassium (3.5-5.1) mmol/L Chloride (98-107) mmol/L Carbon Dioxide (22-30) mmol/L Anion Gap (5-15) MEQ/L BUN (9-20) mg/dL Creatinine (0.66-1.25) mg/dL Estimated GFR ML/MIN Glucose (74-106) mg/dL POC Glucometer 94 82 (74 to 106) mg/dL Calcium (8.4-10.2) mg/dL Total Bilirubin (0.2-1.3) mg/dL AST (17-59) U/L ALT (0-50) U/L Alkaline Phosphatase (38-126) U/L Creatine Kinase (55-170) U/L NT-Pro-B Natriuret Pep (<300) pg/mL Serum Total Protein (6.3-8.2) g/dL Albumin (3.5-5.0) g/dL 09/13/24 Range/Units 12:19 WBC (4.23-9.07) x10^3/uL RBC (4.63-6.08) x10^6/uL Hgb (13.7-17.5) g/dL Hct (40.1-51.0) % MCV (79.0-92.2) fL MCH (25.7-32.2) pg MCHC (32.3-36.5) g/dL RDW (11.6-14.4) % Plt Count (163-337) x10^3/uL MPV (9.4-12.4) fL Gran % (34.0-67.9) % Immature Gran % (Auto) (0.001-0.429) % Nucleat RBC Rel Count (0.00-0.2) % Eos # (Auto) (0.04-0.54) x10^3/uL Immature Gran # (Auto) (0.001-0.031) x10^3u/L Absolute Lymphs (auto) (1.32-3.57) x10^3/uL Absolute Monos (auto) (0.30-0.82) x10^3/uL Absolute Nucleated RBC (0.00-0.012) x10^3u/L Lymphocytes % (21.8-53.1) % Monocytes % (5.3-12.2) % Eosinophils % (0.8-7.0) % Basophils % (0.2-1.2) % Absolute Granulocytes (1.78-5.38) x10^3/uL Basophils # (0.01-0.08) x10^3/uL Sodium 139 (135-145) mmol/L Potassium 4.0 (3.5-5.1) mmol/L Chloride 109 H (98-107) mmol/L Carbon Dioxide 24 (22-30) mmol/L Anion Gap 9.5 (5-15) MEQ/L BUN 13 (9-20) mg/dL Creatinine 0.72 (0.66-1.25) mg/dL Estimated GFR 94.7 ML/MIN Glucose 94 (74-106) mg/dL POC Glucometer (74 to 106) mg/dL Calcium 8.2 L (8.4-10.2) mg/dL Total Bilirubin 0.50 (0.2-1.3) mg/dL AST 150 H (17-59) U/L ALT 10 (0-50) U/L Alkaline Phosphatase 69 (38-126) U/L Creatine Kinase (55-170) U/L NT-Pro-B Natriuret Pep 333 (<300) pg/mL Serum Total Protein 6.0 L (6.3-8.2) g/dL Albumin 2.9 L (3.5-5.0) g/dL Radiology Exams: Radiology Procedures Category Date Time Status CHEST 1 VIEW (PORTABLE) Stat Exams 12/28/24 15:05 Completed Assessment/Plan (1) COVID-19 Current Visit: Yes Status: Acute Code(s): U07.1 - COVID-19 (2) Rhabdomyolysis Current Visit: Yes Status: Acute Code(s): M62.82 - RHABDOMYOLYSIS (3) HTN (hypertension) Current Visit: Yes Status: Chronic Qualifiers: Hypertension type: primary hypertension Qualified Code(s): I10 - Essential (primary) hypertension Code(s): I10 - ESSENTIAL (PRIMARY) HYPERTENSION (4) Parkinson disease Current Visit: Yes Status: Chronic Qualifiers: Dyskinesia presence: with dyskinesia Fluctuating manifestations: with fluctuating manifestations Qualified Code(s): G20.B2 - Parkinson's disease with dyskinesia, with fluctuations Code(s): G20.A1 - PARKINSON'S DIS W/O DYSKINESIA, W/O MENTION OF FLUCTUATIONS (5) Pressure ulcer of buttock, unstageable Current Visit: Yes Status: Chronic Qualifiers: Laterality: unspecified laterality Qualified Code(s): L89.300 - Pressure ulcer of unspecified buttock, unstageable Code(s): L89.300 - PRESSURE ULCER OF UNSPECIFIED BUTTOCK, UNSTAGEABLE (6) Type II diabetes mellitus Current Visit: Yes Status: Chronic Qualifiers: Diabetes mellitus snf insulin use: without snf use Diabetes mellitus complication status: with hyperglycemia Qualified Code(s): E11.65 - Type 2 diabetes mellitus with hyperglycemia (7) Anemia Current Visit: No Status: Chronic Code(s): D64.9 - ANEMIA, UNSPECIFIED (8) Hyperlipidemia Current Visit: No Status: Chronic Code(s): E78.5 - HYPERLIPIDEMIA, UNSPECIFIED (9) Obesity (BMI 30-39.9) Current Visit: No Status: Chronic Assessment & Plan: (1) COVID-19 Current Visit: Yes Status: Acute Assessment & Plan: -CXR with no infiltrates -Oxygenation is good -no need for steroids -Do not plan on antiviral treatment Code(s): U07.1 - COVID-19 (2) Rhabdomyolysis Current Visit: Yes Status: Acute Assessment & Plan: -Patient was down on ground for 14-24 hours -Initial CPK reviewed at >3200> >1600 -IVF -Trend CPK level Code(s): M62.82 - RHABDOMYOLYSIS (3) HTN (hypertension) Current Visit: Yes Status: Chronic Qualifiers: Hypertension type: primary hypertension Qualified Code(s): I10 - Essential (primary) hypertension Assessment & Plan: - hold antihypertensives - consider restarting tomorrow - IVF Code(s): I10 - ESSENTIAL (PRIMARY) HYPERTENSION (4) Parkinson disease Current Visit: Yes Status: Chronic Qualifiers: Dyskinesia presence: with dyskinesia Fluctuating manifestations: with fluctuating manifestations Qualified Code(s): G20.B2 - Parkinson's disease with dyskinesia, with fluctuations Assessment & Plan: -continue home meds Code(s): G20.A1 - PARKINSON'S DIS W/O DYSKINESIA, W/O MENTION OF FLUCTUATIONS (5) Pressure ulcer of buttock, unstageable Current Visit: Yes Status: Chronic Qualifiers: Laterality: unspecified laterality Qualified Code(s): L89.300 - Pressure ulcer of unspecified buttock, unstageable Assessment & Plan: -Repeat cultures pending -Previous cultures reviewed with pseudomonas sensitive to Merem -Merrem initiated -Will have PT evaluate and plan wound care -Surgery consult and took to OR today for debridement - Wound culture gram +- vancomycin added - BC Gram + - CBC, CMP reviewed Code(s): L89.300 - PRESSURE ULCER OF UNSPECIFIED BUTTOCK, UNSTAGEABLE (6) Type II diabetes mellitus Current Visit: Yes Status: Chronic Qualifiers: 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: without termite control technician use Diabetes mellitus complication status: with hyperglycemia Qualified Code(s): E11.65 - Type 2 diabetes mellitus with hyperglycemia Assessment & Plan: -ADA diet -SSI -accuchecks ac/hs -A1c 6.60- controlled (7) Anemia Current Visit: No Status: Chronic Assessment & Plan: -Chronic and at baseline -Reviewed cbc -transfuse if < 7 -iron studies -ferrous sulfate Code(s): D64.9 - ANEMIA, UNSPECIFIED (8) Hyperlipidemia Current Visit: No Status: Chronic Assessment & Plan: -continue statin Code(s): E78.5 - HYPERLIPIDEMIA, UNSPECIFIED (9) Obesity (BMI 30-39.9) Current Visit: No Status: Chronic Assessment & Plan: -advised diet and exercise Code(s): E66.9 - OBESITY, UNSPECIFIED VTE: Lovenox PPI: Protonix Next of KIN: Callie Talavera, Friend [phone] D/C plan: 2-3 days Code status: Full Code(s): E66.9 - OBESITY, UNSPECIFIED
[2024-09-13] MEDS ORDERED: Zofran 4 MG/2 ML VIAL IV PRN (16:23)
[2024-09-13] MEDS: VANCOMYCIN 1.5 GRAM/300 ML BAG 1.5 GM/300 ML PIGGYBACK IV SCH (16:52)
[2024-09-13] MEDS: PROVENTIL 2.5 MG/3 ML NEB IH ONE (19:39)
[2024-09-13] MEDS: NORCO 5/325 MG PO PRN (20:22)
[2024-09-13] MEDS: HUMALOG SQ PRN (22:00)
[2024-09-14 06:58] LABS: Hematocrit 24.1 % (40.1-51.0); Hemoglobin 7.8 g/dL (13.7-17.5); Mean Cell Volume 85.8 fL (79.0-92.2); Mean Corpuscular Hemoglobin 27.8 pg (25.7-32.2); Mean Corpuscular Hgb Concent. 32.4 g/dL (32.3-36.5); Mean Platelet Volume 9.3 fL (9.4-12.4); Platelet Count 151 x10^3/uL (163-337); Red Blood Count 2.81 x10^6/uL (4.63-6.08); Red Cell Distribution Width 13.8 % (11.6-14.4); White Blood Count 4.9 x10^3/uL (4.23-9.07)
[2024-09-14 09:35] LABS: ALBUMIN 2.7 g/dL (3.5-5.0); ANION GAP 9.7 MEQ/L (5-15); BILIRUBIN,TOTAL 0.3 mg/dL (0.2-1.3); Calcium 7.9 mg/dL (8.4-10.2); Creatinine 1 0.65 mg/dL (0.66-1.25); EST GLOMERULAR FILTRATION RATE 97.7 ML/MIN; Potassium 4.3 mmol/L (3.5-5.1); Total Protein 5.7 g/dL (6.3-8.2)
--- NOTE | 2024-09-14 11:23 | OP ---
SURGERY DATE/TIME: 09/13/2024 [id number] PREOPERATIVE DIAGNOSIS: Nonhealing wound, perirectal/coccygeal/buttocks area pressure sore. POSTOPERATIVE DIAGNOSIS: Nonhealing wound, perirectal/coccygeal/buttocks area pressure sore. PROCEDURE: Excisional debridement of perirectal/buttocks/coccygeal area nonhealing pressure sore; debridement of devitalized skin, subcutaneous fat, and a portion of the fascia, 10 x 9 cm. SURGEON: Truman Reese MD. ANESTHESIA: General. ESTIMATED BLOOD LOSS: Less than 50 mL. INDICATIONS: As noted above. Risks and benefits explained in detail. Consent obtained. DESCRIPTION OF PROCEDURE AND FINDINGS: Patient was taken to the operating room. General anesthesia was induced. Patient in lithotomy position, prepped and draped in usual sterile fashion. After official time-out, no disagreement in planned procedure. Sharp excisional debridement of skin, subcutaneous, and a portion of the fascia and devitalized tissue down to bleeding, oozing viable tissue, an area of 10 x 9 cm. Hemostasis was controlled with some pinpoint cautery with electrocautery. A small piece of Surgicel was left along the raw oozing skin edge. There was no viable tissue. He was then packed with normal saline wet-to-dry and continue wound management. He is entertaining considering diverting ostomy later in the week.
--- NOTE | 2024-09-14 11:37 | CONS ---
Dr. Vigil was consulted over the weekend apparently. HISTORY: A 78-year-old gentleman in poor health who had a buttock/perineal area wound that was debrided and perirectal area wound that was debrided in the past and was seen in the office and was much improved. He was in a facility and apparently signed out and was then found down in his own feces and could not get up. He was brought into the ER yesterday apparently, now has a sore, looks like he would benefit from additional debridement. He is also interested in considering ostomy. He understands regardless of any diversion or not, he will have long-term wound care and needs to be at a facility. He has history of pseudomonas. He signed out and fell, and could not get off the floor, found down. He has a history of being COVID positive. He is in no respiratory distress at this point otherwise. He did have Lovenox earlier today. He has not been on any oral anticoagulants currently. PAST MEDICAL HISTORY: He has had the diabetes, arthritis, significant disability. He has had Parkinson's. He has had a history of atrial fibrillation in the past, COPD, obesity. He also has hypertension. 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 HOME MEDICATIONS: Previously, he had been on some lisinopril, atorvastatin, Ezetimibe metformin, metoprolol, carbidopa levodopa, furosemide, hydrocodone, potassium chloride. PHYSICAL EXAMINATION: GENERAL: Overall poor health, resting tremors. RESPIRATORY: Nonlabored breathing currently. CARDIOVASCULAR: Seems to be irregular rhythm on my evaluation. ABDOMEN: Soft. Obese. EXTREMITIES: No cyanosis. NEUROLOGIC: Alert. Again, he has debilitation. PSYCHIATRIC: Appropriate mood and affect. IMPRESSION: Pressure sore. Patient had signed out of an extended care facility or rehab and had worsening of his pressure sore that had been much improved. Feel he would benefit from debridement today if Anesthesia is able to proceed. General risk of bleeding, infection, risk of nonhealing wound. He said he is interested in considering diverting ostomy. Would likely benefit from prep before considering that, so Anesthesia cleared him possibly in a week. Or, at the time he is cleared by Anesthesia to proceed with excisional debridement of his nonhealing pressure sores at this time. Otherwise, needs good pressure offloading. He needs local wound care. He was even discussed option of following up with Plastics. Otherwise, continue medical management of his hyperlipidemia, hypertension, diabetes, Parkinson's, heart disease. He will decide on ostomy later in the week. General risk of bleeding, infection, wound complication or dehiscence, parastomal hernia, the fact the ostomy likely would be long-term if not permanent. Otherwise instill the importance of pressure off of the wound and daily wound care regardless of any ostomy or not. Otherwise, patient is agreeable with debridement today if Anesthesia sees him and clears him and maybe the decision on the ostomy.
--- NOTE | 2024-09-14 12:07 | PCM.NOTE ---
Date and Time: 09/14/24 1202 Subjective Assessment: Reports generalized stiffness but otherwise no new complaints. 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, normal mood/affect, nml cerebellar function Skin Exam: rash, decubitus Wound Assessment: Skin/Wound Assessment Wound/Incision Assessment Start: 09/11/24 20:04 Text: Status: Active Freq: Q6H Protocol: Document 09/14/24 02:00 TED (Rec: 09/14/24 02:13 TED [id number]) Wound/Incision Assessment Intergluteal Cleft Wound Assessment Shift Assessment Wound Type Pressure Ulcer Wound Stage Unstageable Dressing Status Dry & Intact Comment POSTOPERATIVE DRESSING IN PLACE Eye Exam: PERRL, EOMI, eyes nml inspection Ears, Nose, Throat Exam: normal ENT inspection Neck Exam: normal inspection, non-tender, supple, full range of motion Respiratory Exam: normal breath sounds, lungs clear Cardiovascular Exam: regular rate/rhythm, normal heart sounds Gastrointestinal/Abdomen Exam: soft, normal bowel sounds Extremity Exam: normal inspection, normal range of motion Back Exam: normal range of motion Objective Data Vital Signs: Vital Signs - 24 hr Temp Pulse Resp BP Pulse Ox 09/14/24 11:49 98.4 F 81 20 132/69 92 L 09/14/24 07:59 98.3 F 62 18 143/69 95 09/14/24 07:35 96 09/14/24 04:00 98.5 F 93 H 16 139/71 93 L 09/14/24 00:00 98.3 F 78 18 125/72 93 L 09/13/24 20:00 99.1 F 88 16 122/58 92 L 09/13/24 18:30 90 L 09/13/24 18:00 82 119/64 92 L 09/13/24 17:30 88 103/65 95 09/13/24 16:45 100 H 139/66 99 09/13/24 16:30 84 121/61 99 09/13/24 16:15 84 126/66 99 09/13/24 16:00 98.8 F 75 18 120/59 98 09/13/24 12:38 98.3 F 76 20 123/56 97 Pain Assessment - Last Documented Pain Intensity 0 Pain Scale Used 0-10 Pain Scale Intake and Output: Intake & Output 09/12/24 09/13/24 09/14/24 09/15/24 11:59 11:59 11:59 11:59 Intake Total 1438 4175 3217 Output Total 1680 1000 1600 Balance -242 3175 1617 Weight 111 kg 111 kg Lab Results: Lab Results-Last 24 Hours 09/13/24 09/13/24 09/13/24 Range/Units 12:19 14:55 16:50 WBC (4.23-9.07) x10^3/uL RBC (4.63-6.08) x10^6/uL Hgb (13.7-17.5) g/dL Hct (40.1-51.0) % MCV (79.0-92.2) fL MCH (25.7-32.2) pg MCHC (32.3-36.5) g/dL RDW (11.6-14.4) % Plt Count (163-337) x10^3/uL MPV (9.4-12.4) fL Sodium 139 (135-145) mmol/L Potassium 4.0 (3.5-5.1) mmol/L Chloride 109 H (98-107) mmol/L Carbon Dioxide 24 (22-30) mmol/L Anion Gap 9.5 (5-15) MEQ/L BUN 13 (9-20) mg/dL Creatinine 0.72 (0.66-1.25) mg/dL Estimated GFR 94.7 ML/MIN Glucose 94 (74-106) mg/dL POC Glucometer 75 142 H (74 to 106) mg/dL Calcium 8.2 L (8.4-10.2) mg/dL Total Bilirubin 0.50 (0.2-1.3) mg/dL AST 150 H (17-59) U/L ALT 10 (0-50) U/L Alkaline Phosphatase 69 (38-126) U/L Creatine Kinase (55-170) U/L NT-Pro-B Natriuret Pep 333 (<300) pg/mL Serum Total Protein 6.0 L (6.3-8.2) g/dL Albumin 2.9 L (3.5-5.0) g/dL 09/13/24 09/14/24 09/14/24 Range/Units 21:32 04:19 06:48 WBC 4.9 (4.23-9.07) x10^3/uL RBC 2.81 L (4.63-6.08) x10^6/uL Hgb 7.8 L (13.7-17.5) g/dL Hct 24.1 L (40.1-51.0) % MCV 85.8 (79.0-92.2) fL MCH 27.8 (25.7-32.2) pg MCHC 32.4 (32.3-36.5) g/dL RDW 13.8 (11.6-14.4) % Plt Count 151 L (163-337) x10^3/uL MPV 9.3 L (9.4-12.4) fL Sodium (135-145) mmol/L Potassium (3.5-5.1) mmol/L Chloride (98-107) mmol/L Carbon Dioxide (22-30) mmol/L Anion Gap (5-15) MEQ/L BUN (9-20) mg/dL Creatinine (0.66-1.25) mg/dL Estimated GFR ML/MIN Glucose (74-106) mg/dL POC Glucometer 260 H 170 H (74 to 106) mg/dL Calcium (8.4-10.2) mg/dL Total Bilirubin (0.2-1.3) mg/dL AST (17-59) U/L ALT (0-50) U/L Alkaline Phosphatase (38-126) U/L Creatine Kinase (55-170) U/L NT-Pro-B Natriuret Pep (<300) pg/mL Serum Total Protein (6.3-8.2) g/dL Albumin (3.5-5.0) g/dL 09/14/24 09/14/24 09/14/24 Range/Units 06:48 07:33 11:11 WBC (4.23-9.07) x10^3/uL RBC (4.63-6.08) x10^6/uL Hgb (13.7-17.5) g/dL Hct (40.1-51.0) % MCV (79.0-92.2) fL MCH (25.7-32.2) pg MCHC (32.3-36.5) g/dL RDW (11.6-14.4) % Plt Count (163-337) x10^3/uL MPV (9.4-12.4) fL Sodium 136 (135-145) mmol/L Potassium 4.3 (3.5-5.1) mmol/L Chloride 109 H (98-107) mmol/L Carbon Dioxide 22 (22-30) mmol/L Anion Gap 9.7 (5-15) MEQ/L BUN 13 (9-20) mg/dL Creatinine 0.65 L (0.66-1.25) mg/dL Estimated GFR 97.7 ML/MIN Glucose 168 H (74-106) mg/dL POC Glucometer 144 H 189 H (74 to 106) mg/dL Calcium 7.9 L (8.4-10.2) mg/dL Total Bilirubin 0.30 (0.2-1.3) mg/dL AST 102 H (17-59) U/L ALT 16 (0-50) U/L Alkaline Phosphatase 70 (38-126) U/L Creatine Kinase 1301 H (55-170) U/L NT-Pro-B Natriuret Pep (<300) pg/mL Serum Total Protein 5.7 L (6.3-8.2) g/dL Albumin 2.7 L (3.5-5.0) g/dL Radiology Exams: Radiology Procedures Category Date Time Status ECHO W/2D AND DOPPLER [US] Routine Exams 09/13/24 14:37 Taken Multi-Disciplinary Progress Notes: Multi-Disciplinary Progress Notes 09/13/24 15:48 Physical Therapy Note by Jessy(Chace#[id number])Zandra P.Farrukh. HELD THIS DATE PT. WENT TO S FOR DEBRIDEMENT OF BUTTOCK WOUND. WILL EVAL TOMORROW 09/14/24. Initialized on 09/13/24 15:48 - END OF NOTE 09/13/24 15:38 Case Management Note by Noa Phan Addendum entered by Noa Phan 09/13/24 15:38: PER [facility] AT [facility] PATIENT USED 31 DAYS AT THEIR FACILITY Original Note: Talked with CAMRYN MCCOY regarding needs at time of discharge. Patient reports residing at []. Patient reports plans on returning to [] upon discharge. Discharge questionaire reviewed with patient. Important message from Medicare signed. Patient verbalized understanding. Forms placed on chart. Patient meets Acute Adult Inpatient Criteria. Will continue to follow for all Discharge needs. Initialized on 09/13/24 15:38 - END OF NOTE 09/13/24 15:31 Case Management Note by Noa Phan PAPERWORK DONE- NO LEVEL II REQUIRED COPIES PLACED ON CHART Initialized on 09/13/24 15:31 - END OF NOTE Assessment/Plan (1) Pressure ulcer of buttock, unstageable Current Visit: Yes Status: Chronic Qualifiers: Laterality: unspecified laterality Qualified Code(s): L89.300 - Pressure ulcer of unspecified buttock, unstageable Assessment & Plan: Continue wound care and antibiotics. Surgery following. Blood culture demonstrating gram positive growth. If confirmed, may need transfer for JACK and ID consultation. Code(s): L89.300 - PRESSURE ULCER OF UNSPECIFIED BUTTOCK, UNSTAGEABLE (2) HTN (hypertension) Current Visit: Yes Status: Chronic Qualifiers: Hypertension type: primary hypertension Qualified Code(s): I10 - Essential (primary) hypertension Assessment & Plan: Monitor BP Code(s): I10 - ESSENTIAL (PRIMARY) HYPERTENSION (3) Type II diabetes mellitus Current Visit: Yes Status: Chronic Qualifiers: Diabetes mellitus skilled nursing insulin use: without skilled nursing use Diabetes demetrius litus complication status: with hyperglycemia Qualified Code(s): E11.65 - Type 2 diabetes mellitus with hyperglycemia Assessment & Plan: Follow sugars. (4) Rhabdomyolysis Current Visit: Yes Status: Acute Assessment & Plan: Creatinine stable. Trend CPK. Code(s): M62.82 - RHABDOMYOLYSIS (5) COVID-19 Current Visit: Yes Status: Acute Assessment & Plan: Isolation per protocol. Code(s): U07.1 - COVID-19 Telemedicine Encounter - Telemedicine Encounter Telemedicine Encounter: "The entirety of this encounter was performed via Telemedicine" This visit was performed using real-time audio and video connection between my location and thepatients locationwith the assistance of a surrogateat the patients location. Written or verbal consent was obtained from the patient/guardian to perform this visit [facility]. Any patient questions regarding the telemedicine interaction were answered.
[2024-09-15 06:20] LABS: Absolute Neutrophil Ct (ANC) 3.23 x10^3/uL (1.78-5.38); BASOPHIL % 0.3 % (0.2-1.2); Basophil (Absolute #) 0.02 x10^3/uL (0.01-0.08); Eosinophil % 2.9 % (0.8-7.0); Eosinophil (Absolute #) 0.19 x10^3/uL (0.04-0.54); Hematocrit 25.1 % (40.1-51.0); IMMATURE GRAN # 0.06 x10^3u/L (0.001-0.031); IMMATURE GRAN % 0.9 % (0.001-0.429); Lymphocyte (Absolute #) 2.66 x10^3/uL (1.32-3.57); Lymphocytes % 40.7 % (21.8-53.1); Mean Cell Volume 88.7 fL (79.0-92.2); Mean Corpuscular Hemoglobin 28.3 pg (25.7-32.2); Mean Corpuscular Hgb Concent. 31.9 g/dL (32.3-36.5); Mean Platelet Volume 10.1 fL (9.4-12.4); Monocyte (Absolute #) 0.38 x10^3/uL (0.30-0.82); Monocytes % 5.8 % (5.3-12.2); Neutrophil % 49.4 % (34.0-67.9); Platelet Count 118 x10^3/uL (163-337); Red Blood Count 2.83 x10^6/uL (4.63-6.08); Red Cell Distribution Width 13.6 % (11.6-14.4); White Blood Count 6.5 x10^3/uL (4.23-9.07)
[2024-09-15] MEDS: TROUGH DRUG LEVELS IJ ONE (06:38)
[2024-09-15 06:45] LABS: ANION GAP 8.8 MEQ/L (5-15); Calcium 7.6 mg/dL (8.4-10.2); Creatinine 1 0.68 mg/dL (0.66-1.25); EST GLOMERULAR FILTRATION RATE 96.3 ML/MIN
[2024-09-15 08:28] LABS: Slide Review 1 YES
--- NOTE | 2024-09-15 12:40 | PCM.NOTE ---
Date and Time: 09/15/24 1234 Subjective Assessment: Denies any new symptoms. No fevers or chills. 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 SCHEDULED TO BE CHANGED BID Wound Photo Photo Taken No Eye Exam: PERRL, EOMI, eyes nml inspection Ears, Nose, Throat Exam: normal ENT inspection Neck Exam: normal inspection, non-tender, supple, full range of motion Respiratory Exam: normal breath sounds, lungs clear Cardiovascular Exam: regular rate/rhythm, normal heart sounds, other (No murmurs) Gastrointestinal/Abdomen Exam: soft, normal bowel sounds Extremity Exam: normal inspection, normal range of motion Back Exam: normal range of motion Objective Data Vital Signs: Vital Signs - 24 hr Temp Pulse Resp BP Pulse Ox 09/15/24 12:00 98 F 79 18 143/75 96 09/15/24 07:52 98.9 F 79 18 120/64 96 09/15/24 04:00 98.3 F 78 17 118/61 95 09/14/24 23:32 98.5 F 84 16 123/65 95 09/14/24 19:44 98.4 F 78 16 133/56 95 09/14/24 16:00 98.3 F 76 18 124/65 98 Pain Assessment - Last Documented Pain Intensity 0 Pain Scale Used 0-10 Pain Scale Intake and Output: Intake & Output 09/13/24 09/14/24 09/15/24 09/16/24 11:59 11:59 11:59 11:59 Intake Total 4175 3217 1320 Output Total 1000 1600 2550 Balance 3175 1617 -1230 Weight 111 kg 111 kg Lab Results: Lab Results-Last 24 Hours 09/14/24 09/14/24 09/15/24 Range/Units 16:13 22:03 06:08 WBC (4.23-9.07) x10^3/uL RBC (4.63-6.08) x10^6/uL Hgb (13.7-17.5) g/dL Hct (40.1-51.0) % MCV (79.0-92.2) fL MCH (25.7-32.2) pg MCHC (32.3-36.5) g/dL RDW (11.6-14.4) % Plt Count (163-337) x10^3/uL MPV (9.4-12.4) fL Gran % (34.0-67.9) % Immature Gran % (Auto) (0.001-0.429) % Nucleat RBC Rel Count (0.00-0.2) % Eos # (Auto) (0.04-0.54) x10^3/uL Immature Gran # (Auto) (0.001-0.031) x10^3u/L Absolute Lymphs (auto) (1.32-3.57) x10^3/uL Absolute Monos (auto) (0.30-0.82) x10^3/uL Absolute Nucleated RBC (0.00-0.012) x10^3u/L Lymphocytes % (21.8-53.1) % Monocytes % (5.3-12.2) % Eosinophils % (0.8-7.0) % Basophils % (0.2-1.2) % Absolute Granulocytes (1.78-5.38) x10^3/uL Basophils # (0.01-0.08) x10^3/uL Sodium (135-145) mmol/L Potassium (3.5-5.1) mmol/L Chloride (98-107) mmol/L Carbon Dioxide (22-30) mmol/L Anion Gap (5-15) MEQ/L BUN (9-20) mg/dL Creatinine (0.66-1.25) mg/dL Estimated GFR ML/MIN Glucose (74-106) mg/dL POC Glucometer 164 H 161 H (74 to 106) mg/dL Calcium (8.4-10.2) mg/dL Creatine Kinase (55-170) U/L Vancomycin Trough 14.21 (10-20) ug/mL Slides for Path Review 09/15/24 09/15/24 09/15/24 Range/Units 06:08 06:08 07:38 WBC 6.5 (4.23-9.07) x10^3/uL RBC 2.83 L (4.63-6.08) x10^6/uL Hgb 8.0 L (13.7-17.5) g/dL Hct 25.1 L (40.1-51.0) % MCV 88.7 (79.0-92.2) fL MCH 28.3 (25.7-32.2) pg MCHC 31.9 L (32.3-36.5) g/dL RDW 13.6 (11.6-14.4) % Plt Count 118 L (163-337) x10^3/uL MPV 10.1 (9.4-12.4) fL Gran % 49.4 (34.0-67.9) % Immature Gran % (Auto) 0.9 H (0.001-0.429) % Nucleat RBC Rel Count 0.0 (0.00-0.2) % Eos # (Auto) 0.19 (0.04-0.54) x10^3/uL Immature Gran # (Auto) 0.06 H (0.001-0.031) x10^3u/L Absolute Lymphs (auto) 2.66 (1.32-3.57) x10^3/uL Absolute Monos (auto) 0.38 (0.30-0.82) x10^3/uL Absolute Nucleated RBC 0.00 (0.00-0.012) x10^3u/L Lymphocytes % 40.7 (21.8-53.1) % Monocytes % 5.8 (5.3-12.2) % Eosinophils % 2.9 (0.8-7.0) % Basophils % 0.3 (0.2-1.2) % Absolute Granulocytes 3.23 (1.78-5.38) x10^3/uL Basophils # 0.02 (0.01-0.08) x10^3/uL Sodium 137 (135-145) mmol/L Potassium 4.0 (3.5-5.1) mmol/L Chloride 110 H (98-107) mmol/L Carbon Dioxide 22 (22-30) mmol/L Anion Gap 8.8 (5-15) MEQ/L BUN 14 (9-20) mg/dL Creatinine 0.68 (0.66-1.25) mg/dL Estimated GFR 96.3 ML/MIN Glucose 110 H (74-106) mg/dL POC Glucometer 110 H (74 to 106) mg/dL Calcium 7.6 L (8.4-10.2) mg/dL Creatine Kinase 600 H (55-170) U/L Vancomycin Trough (10-20) ug/mL Slides for Path Review YES 09/15/24 Range/Units 11:46 WBC (4.23-9.07) x10^3/uL RBC (4.63-6.08) x10^6/uL Hgb (13.7-17.5) g/dL Hct (40.1-51.0) % MCV (79.0-92.2) fL MCH (25.7-32.2) pg MCHC (32.3-36.5) g/dL RDW (11.6-14.4) % Plt Count (163-337) x10^3/uL MPV (9.4-12.4) fL Gran % (34.0-67.9) % Immature Gran % (Auto) (0.001-0.429) % Nucleat RBC Rel Count (0.00-0.2) % Eos # (Auto) (0.04-0.54) x10^3/uL Immature Gran # (Auto) (0.001-0.031) x10^3u/L Absolute Lymphs (auto) (1.32-3.57) x10^3/uL Absolute Monos (auto) (0.30-0.82) x10^3/uL Absolute Nucleated RBC (0.00-0.012) x10^3u/L Lymphocytes % (21.8-53.1) % Monocytes % (5.3-12.2) % Eosinophils % (0.8-7.0) % Basophils % (0.2-1.2) % Absolute Granulocytes (1.78-5.38) x10^3/uL Basophils # (0.01-0.08) x10^3/uL Sodium (135-145) mmol/L Potassium (3.5-5.1) mmol/L Chloride (98-107) mmol/L Carbon Dioxide (22-30) mmol/L Anion Gap (5-15) MEQ/L BUN (9-20) mg/dL Creatinine (0.66-1.25) mg/dL Estimated GFR ML/MIN Glucose (74-106) mg/dL POC Glucometer 91 (74 to 106) mg/dL Calcium (8.4-10.2) mg/dL Creatine Kinase (55-170) U/L Vancomycin Trough (10-20) ug/mL Slides for Path Review Radiology Exams: Radiology Procedures Category Date Time Status ECHO W/2D AND DOPPLER [US] Routine Exams 09/13/24 14:37 Taken Multi-Disciplinary Progress Notes: Multi-Disciplinary Progress Notes 09/14/24 18:24 Case Management Note by Noa Phan HAS ACCEPTED PATIENT, THE EARLIEST PATIENT CAN TRANSITION TO [facility] IS 09/15/24. Initialized on 09/14/24 18:24 - END OF NOTE Assessment/Plan (1) Pressure ulcer of buttock, unstageable Current Visit: Yes Status: Chronic Qualifiers: Laterality: unspecified laterality Qualified Code(s): L89.300 - Pressure ulcer of unspecified buttock, unstageable Assessment & Plan: Continue antibiotics and wound care. Colostomy planned on Friday. Code(s): L89.300 - PRESSURE ULCER OF UNSPECIFIED BUTTOCK, UNSTAGEABLE (2) Bacteremia due to Enterococcus Current Visit: Yes Status: Acute Assessment & Plan: Source is likely the patient's wound. No murmur on exam. Echocardiogram pending. NGTD on repeat culture. On IV vancomycin. If ECHO negative for vegetations and if repeat Cx shows NGTD, can consider PICC line placement with a plan for 7 days IV vancomycin Code(s): R78.81 - BACTEREMIA; B95.2 - ENTEROCOCCUS THE CAUSE OF DISEASES CLASSIFIED ELSEWHERE (3) HTN (hypertension) Current Visit: Yes Status: Chronic Qualifiers: Hypertension type: primary hypertension Qualified Code(s): I10 - Essential (primary) hypertension Assessment & Plan: Monitor BP Code(s): I10 - ESSENTIAL (PRIMARY) HYPERTENSION (4) Type II diabetes mellitus Current Visit: Yes Status: Chronic Qualifiers: Diabetes mellitus vermin exterminator insulin use: without vermin exterminator use Diabetes mellitus complication status: with hyperglycemia Qualified Code(s): E11.65 - Type 2 diabetes mellitus with hyperglycemia Assessment & Plan: Monitor sugars (5) Rhabdomyolysis Current Visit: Yes Status: Acute Assessment & Plan: Continue to trend CPK. Placement secured. Code(s): M62.82 - RHABDOMYOLYSIS (6) COVID-19 Current Visit: Yes Status: Acute Assessment & Plan: Isolation. Code(s): U07.1 - COVID-19 Telemedicine Encounter - Telemedicine Encounter Telemedicine Encounter: "The entirety of this encounter was performed via Telemedicine" This visit was performed using real-time audio and video connection between my location and thepatients locationwith the assistance of a surrogateat the patients location. Written or verbal consent was obtained from the patient/guardian to perform this visit [facility]. Any patient questions regarding the telemedicine interaction were answered.
[2024-09-15] MEDS ORDERED: Merrem IV ONE (21:10)
[2024-09-16 04:31] LABS: BASOPHIL % 0.3 % (0.2-1.2); Basophil (Absolute #) 0.02 x10^3/uL (0.01-0.08); Eosinophil % 4.9 % (0.8-7.0); Eosinophil (Absolute #) 0.31 x10^3/uL (0.04-0.54); Hematocrit 25.5 % (40.1-51.0); Hemoglobin 8.2 g/dL (13.7-17.5); IMMATURE GRAN # 0.05 x10^3u/L (0.001-0.031); IMMATURE GRAN % 0.8 % (0.001-0.429); Lymphocyte (Absolute #) 2.66 x10^3/uL (1.32-3.57); Lymphocytes % 42.4 % (21.8-53.1); Mean Cell Volume 85.3 fL (79.0-92.2); Mean Corpuscular Hemoglobin 27.4 pg (25.7-32.2); Mean Corpuscular Hgb Concent. 32.2 g/dL (32.3-36.5); Mean Platelet Volume 9.1 fL (9.4-12.4); Monocyte (Absolute #) 0.44 x10^3/uL (0.30-0.82); Neutrophil % 44.6 % (34.0-67.9); Platelet Count 166 x10^3/uL (163-337); Red Blood Count 2.99 x10^6/uL (4.63-6.08); Red Cell Distribution Width 13.6 % (11.6-14.4); White Blood Count 6.3 x10^3/uL (4.23-9.07)
[2024-09-16 04:47] LABS: Calcium 7.8 mg/dL (8.4-10.2); Creatinine 1 0.64 mg/dL (0.66-1.25); EST GLOMERULAR FILTRATION RATE 98.1 ML/MIN
--- NOTE | 2024-09-16 09:19 | PCM.NOTE ---
Date and Time: 09/16/24 0910 Subjective Assessment: 09/16/24 Pt resting in bed. He is starting Golytely prep today as he is having an ostomy placed by general surgery tomorrow. This is being done to aide in wound healing. CK improved- continue IV fluids. Continue IV antibiotics for sacral wound. Keep in isolation for COVID. Echo results pending. Corrected calcium 8.4. Pt denies CP, SOB, Abd. pain, N/V/D. - Review of Systems Constitutional: No Fever, No Chills Eyes: No Symptoms Ears, Nose, & Throat: No Symptoms Respiratory: No Cough, No Short Of Breath Cardiac: No Chest Pain, No Edema, No Syncope Abdominal/Gastrointestinal: No Abdominal Pain, No Nausea, No Vomiting, No Diarrhea Genitourinary Symptoms: No Dysuria Musculoskeletal: No Back Pain, No Neck Pain Skin: Other (Wound sacrum), No Rash Neurological: No Dizziness, No Focal Weakness, No Sensory Changes Psychological: No Symptoms Endocrine: No Symptoms Hematologic/Lymphatic: No Symptoms Immunological/Allergic: No Symptoms Objective Exam General Appearance: no apparent distress, alert, obese Neurologic Exam: alert, oriented x 3, cooperative, normal mood/affect, nml cerebellar function, sensation nml, No motor deficits Skin Exam: normal color, warm, dry, other (Wound sacrum - see pics in chart) Wound Assessment: Skin/Wound Assessment Wound/Incision Assessment Start: 09/11/24 20:04 Text: Status: Active Freq: Q6H Protocol: Document 09/16/24 08:00 NATHAN (Rec: 09/16/24 08:50 [facility] [id number]) Wound/Incision Assessment Intergluteal Cleft Wound Assessment Shift Assessment Wound Type Pressure Ulcer Wound Stage Unstageable Dressing Status Dry & Intact Packing Type Gauze Roll Primary Dressing Absorbant Pad Comment dressing CDI, scheduled to be changed BID Wound Photo Photo Taken No Eye Exam: PERRL, EOMI, eyes nml inspection Ears, Nose, Throat Exam: normal ENT inspection, pharynx normal, moist mucous membranes Neck Exam: normal inspection, non-tender, supple, full range of motion Respiratory Exam: normal breath sounds, lungs clear, No respiratory distress Cardiovascular Exam: regular rate/rhythm, normal heart sounds Gastrointestinal/Abdomen Exam: soft, No tenderness, No mass Extremity Exam: normal inspection, normal range of motion Back Exam: normal inspection, normal range of motion, No CVA tenderness, No vertebral tenderness Male Genitalia Exam: deferred Rectal Exam: deferred Objective Data Vital Signs: Vital Signs - 24 hr Temp Pulse Resp BP Pulse Ox 09/16/24 07:45 98.1 F 88 18 137/68 94 L 09/16/24 04:00 98.2 F 73 17 122/64 93 L 09/16/24 00:00 97.9 F 88 19 124/63 95 09/15/24 20:00 98.4 F 80 20 127/66 94 L 09/15/24 16:00 98.7 F 92 H 18 145/82 96 09/15/24 12:00 98 F 79 18 143/75 96 Pain Assessment - Last Documented Pain Intensity 4 Pain Scale Used [facility] Intake and Output: Intake & Output 09/13/24 09/14/24 09/15/24 09/16/24 11:59 11:59 11:59 11:59 Intake Total 4175 3217 1320 3631 Output Total 1000 1600 2550 3300 Balance 3175 1617 -1230 331 Weight 111 kg 111 kg Lab Results: Lab Results-Last 24 Hours 09/15/24 09/15/24 09/15/24 Range/Units 11:46 16:07 21:23 WBC (4.23-9.07) x10^3/uL RBC (4.63-6.08) x10^6/uL Hgb (13.7-17.5) g/dL Hct (40.1-51.0) % MCV (79.0-92.2) fL MCH (25.7-32.2) pg MCHC (32.3-36.5) g/dL RDW (11.6-14.4) % Plt Count (163-337) x10^3/uL MPV (9.4-12.4) fL Gran % (34.0-67.9) % Immature Gran % (Auto) (0.001-0.429) % Nucleat RBC Rel Count (0.00-0.2) % Eos # (Auto) (0.04-0.54) x10^3/uL Immature Gran # (Auto) (0.001-0.031) x10^3u/L Absolute Lymphs (auto) (1.32-3.57) x10^3/uL Absolute Monos (auto) (0.30-0.82) x10^3/uL Absolute Nucleated RBC (0.00-0.012) x10^3u/L Lymphocytes % (21.8-53.1) % Monocytes % (5.3-12.2) % Eosinophils % (0.8-7.0) % Basophils % (0.2-1.2) % Absolute Granulocytes (1.78-5.38) x10^3/uL Basophils # (0.01-0.08) x10^3/uL Sodium (135-145) mmol/L Potassium (3.5-5.1) mmol/L Chloride (98-107) mmol/L Carbon Dioxide (22-30) mmol/L Anion Gap (5-15) MEQ/L BUN (9-20) mg/dL Creatinine (0.66-1.25) mg/dL Estimated GFR ML/MIN Glucose (74-106) mg/dL POC Glucometer 91 97 117 H (74 to 106) mg/dL Calcium (8.4-10.2) mg/dL Creatine Kinase (55-170) U/L 09/16/24 09/16/24 09/16/24 Range/Units 04:05 04:05 07:27 WBC 6.3 (4.23-9.07) x10^3/uL RBC 2.99 L (4.63-6.08) x10^6/uL Hgb 8.2 L (13.7-17.5) g/dL Hct 25.5 L (40.1-51.0) % MCV 85.3 (79.0-92.2) fL MCH 27.4 (25.7-32.2) pg MCHC 32.2 L (32.3-36.5) g/dL RDW 13.6 (11.6-14.4) % Plt Count 166 D (163-337) x10^3/uL MPV 9.1 L (9.4-12.4) fL Gran % 44.6 (34.0-67.9) % Immature Gran % (Auto) 0.8 H (0.001-0.429) % Nucleat RBC Rel Count 0.0 (0.00-0.2) % Eos # (Auto) 0.31 (0.04-0.54) x10^3/uL Immature Gran # (Auto) 0.05 H (0.001-0.031) x10^3u/L Absolute Lymphs (auto) 2.66 (1.32-3.57) x10^3/uL Absolute Monos (auto) 0.44 (0.30-0.82) x10^3/uL Absolute Nucleated RBC 0.00 (0.00-0.012) x10^3u/L Lymphocytes % 42.4 (21.8-53.1) % Monocytes % 7.0 (5.3-12.2) % Eosinophils % 4.9 (0.8-7.0) % Basophils % 0.3 (0.2-1.2) % Absolute Granulocytes 2.80 (1.78-5.38) x10^3/uL Basophils # 0.02 (0.01-0.08) x10^3/uL Sodium 135 (135-145) mmol/L Potassium 4.0 (3.5-5.1) mmol/L Chloride 107 (98-107) mmol/L Carbon Dioxide 25 (22-30) mmol/L Anion Gap 8.0 (5-15) MEQ/L BUN 12 (9-20) mg/dL Creatinine 0.64 L (0.66-1.25) mg/dL Estimated GFR 98.1 ML/MIN Glucose 108 H (74-106) mg/dL POC Glucometer 108 H (74 to 106) mg/dL Calcium 7.8 L (8.4-10.2) mg/dL Creatine Kinase 278 H (55-170) U/L Assessment/Plan (1) Pressure ulcer of buttock, unstageable Current Visit: Yes Status: Chronic Qualifiers: Laterality: unspecified laterality Qualified Code(s): L89.300 - Pressure ulcer of unspecified buttock, unstageable Code(s): L89.300 - PRESSURE ULCER OF UNSPECIFIED BUTTOCK, UNSTAGEABLE (2) Bacteremia due to Enterococcus Current Visit: Yes Status: Acute Code(s): R78.81 - BACTEREMIA; B95.2 - ENTEROCOCCUS THE CAUSE OF DISEASES CLASSIFIED ELSEWHERE (3) HTN (hypertension) Current Visit: Yes Status: Chronic Qualifiers: Hypertension type: primary hypertension Qualified Code(s): I10 - Essential (primary) hypertension Code(s): I10 - ESSENTIAL (PRIMARY) HYPERTENSION (4) Type II diabetes mellitus Current Visit: Yes Status: Chronic Qualifiers: Diabetes mellitus termination clerk insulin use: without termination clerk use Diabetes mellitus complication status: with hyperglycemia Qualified Code(s): E11.65 - Type 2 diabetes mellitus with hyperglycemia (5) Rhabdomyolysis Current Visit: Yes Status: Acute Code(s): M62.82 - RHABDOMYOLYSIS (6) COVID-19 Current Visit: Yes Status: Acute Assessment & Plan: (1) Pressure ulcer of buttock, unstageable Current Visit: Yes Status: Chronic Qualifiers: Laterality: unspecified laterality Qualified Code(s): L89.300 - Pressure ulcer of unspecified buttock, unstageable Assessment & Plan: - Continue antibiotics and wound care. - Colostomy planned on Friday. - Start ActualSunley today - CBC, CMP reviewed - Tele Code(s): L89.300 - PRESSURE ULCER OF UNSPECIFIED BUTTOCK, UNSTAGEABLE (2) Bacteremia due to Enterococcus Current Visit: Yes Status: Acute Assessment & Plan: - Source is likely the patient's wound. - No murmur on exam. - Electrocardiogram pending. - NGTD on repeat culture. - On IV Vancomycin. - If ECHO negative for vegetations and if repeat Cx shows NGTD, can consider PICC line placement with a plan for 7 days IV vancomycin 1/2 - Repeat cultures negative - Echo results pending - Will need PICC line prior to d/c. Code(s): R78.81 - BACTEREMIA; B95.2 - ENTEROCOCCUS THE CAUSE OF DISEASES CLASSIFIED ELSEWHERE (3) HTN (hypertension) Current Visit: Yes Status: Chronic Qualifiers: Hypertension type: primary hypertension Qualified Code(s): I10 - Essential (primary) hypertension Assessment & Plan: - Monitor BP - Continue home meds Code(s): I10 - ESSENTIAL (PRIMARY) HYPERTENSION (4) Type II diabetes mellitus Current Visit: Yes Status: Chronic Qualifiers: Diabetes mellitus termination clerk insulin use: without termination clerk use Diabetes mellitus complication status: with hyperglycemia Qualified Code(s): E11.65 - Type 2 diabetes mellitus with hyperglycemia Assessment & Plan: - Accuchecks AC/HS - ADA diet - SSI - A1c 6.60- controlled (5) Rhabdomyolysis Current Visit: Yes Status: Acute Assessment & Plan: - Continue to trend CPK. - Ck 278- improving - IV fluids Code(s): M62.82 - RHABDOMYOLYSIS (6) COVID-19 Current Visit: Yes Status: Acute Assessment & Plan: - Isolation precautions Code(s): U07.1 - COVID-19 Code(s): U07.1 - COVID-19 (7) Parkinson disease Current Visit: Yes Status: Chronic Qualifiers: Dyskinesia presence: with dyskinesia Fluctuating manifestations: with fluctuating manifestations Qualified Code(s): G20.B2 - Parkinson's disease with dyskinesia, with fluctuations Assessment & Plan: -continue home meds Code(s): G20.A1 - PARKINSON'S DIS W/O DYSKINESIA, W/O MENTION OF FLUCTUATIONS (8) Anemia Current Visit: No Status: Chronic Assessment & Plan: -Chronic and at baseline -Reviewed cbc -transfuse if < 7 -iron studies -ferrous sulfate Code(s): D64.9 - ANEMIA, UNSPECIFIED (9) Hyperlipidemia Current Visit: No Status: Chronic Assessment & Plan: -continue statin Code(s): E78.5 - HYPERLIPIDEMIA, UNSPECIFIED (10) Obesity (BMI 30-39.9) Current Visit: No Status: Chronic Assessment & Plan: -advised diet and exercise control VTE: Lovenox PPI: Protonix Next of KIN: Callie Talavera, Friend [phone] D/C plan: per surgery recs Code status: Full Code(s): E66.9 - OBESITY, UNSPECIFIED Code(s): E66.9 - OBESITY, UNSPECIFIED
[2024-09-16] MEDS: Zestril 20 MG PO SCH (11:02)
[2024-09-16] MEDS: Golytely Solution 4000 ML PO ONE (15:23)
[2024-09-16] MEDS: PHARMACY DOSING REQUEST MC ONE (15:23)
--- NOTE | 2024-09-16 19:38 | PCM.CONS ---
History of Present Illness - Date of Consult Date of Encounter: 09/16/24 Consulting Sleeve Separator: MICHAEL DANIELS MD Requesting Provider: Attending Provider: NIA DOUGHERTY MD Primary Care Provider: PCP: LENA DUGGAN Consent was: Given for this tele-med encounter - Consult Narrative Reason for Consult: Cardiac risk assessment for diverting colostomy HPI: Patient is a 78M with history of carotid artery disease S/P right carotid endarterectomy in 2020, HTN, hypercholesterolemia, type II DM, remote tobacco abuse, Parkinson's disease, and sacral decubiti who presented after falling on the floor at his home being unable to get up. He had been recently hospitalized with an infection of his sacral decubiti. He was transferred to a rehab facility for PT. He was back home for < 24 hours when 911 was called. He had a 101.3 degree fever and occasional SBP in the 80s at presentation. He had poor po intake prior to admission and was given IVFs. BC positve for Enterococus. It is believed that his sacral decubitus wound was the source of his infection. Plans are to have patient undergo a diverting colostomy by Dr. Kang to help minimize his risk for infection. His anti-hypertensive meds including metoprolol were held at presentation because of his hypotension. He denies any cardiac history. He underwent a cardiac cath in approximately 2018 which did not reveal any significant CAD per his report (cath report not available). He underwent a right CEA in 2020. He denies any prior CVA or TIA. He has not had his coronary arteries evaluated sijnce his cardiac cath. He denies any history of chest pain. He has been very sedantary over the past 1.5 years yielding his decubiti. Prior to 1.5 years ago he was able to walk 3 blocks and walk up 3 flights of stairs. cc:: The requesting physician will be sent a copy of the consult. Review of Systems - Review of Systems All systems: all other systems reviewed and were unremarkable - Past Medical History Past Medical History: Yes Neurological History: Other ENT History: No Pertinent History Cardiac History: High Cholesterol, Hypertension Respiratory History: No Pertinent History Endocrine Medical History: Diabetes Type II Musculoskelatal History: Osteoarthritis, Other GI Medical History: No Pertinent History History: No Pertinent History Pyscho-Social History: No Pertinent History Male Reproductive Disorders: No Pertinent History Comment: SX HX; LEFT KNEE REPLACEMENT YEARS AGO, 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 PARKINSON'S DZ. PARKINSON'S - Past Surgical History Past Surgical History: Yes Neuro Surgical History: No Pertinent History Cardiac History: No Pertinent History Respiratory Surgery: No Pertinent History GI Surgical History: No Pertinent History Genitourinary Surgical Hx: No Pertinent History Musculskeletal Surgical Hx: Amputation, Orthopedic Surgery Other Surgical History: TOTAL CLEFT PALATE REPAIR. , finger amputation,left knee joint replacement - Social History Smoking Status: Never smoker Exposure to second hand smoke: No Alcohol: None Drug Use: none - Social Determinants of Health Will the patient participate in the screening: Yes Do you worry about a steady place to live?: No Do you have any problems with any of the following?: No known problems In the past 12 months,have you had to go without utilities?: No Have you or anyone in your house had to go without enough: No Transportation Issues: No Has anyone in your support network made you feel unsafe?: No Does the patient want assistance with any of the above?: No Medications & Allergies Home Medications: Home Medication List lisinopriL [Zestril] 40 mg PO DAILY 12/11/15 [History Confirmed 09/11/24] Atorvastatin Calcium [Lipitor] 80 mg PO QHS 06/09/19 [History Confirmed 09/11/24] Ezetimibe 10 mg PO QHS 06/09/19 [History Confirmed 09/11/24] Metformin HCl 500 mg [Glucophage 500 MG] 500 mg PO DAILY 06/09/19 [History Confirmed 09/11/24] Carbidopa/Levodopa [Carbidopa-Levodopa 25-100 Tab] 2 tab PO 0600 01/15/24 [History Confirmed 09/11/24] Metoprolol Tartrate 25 mg [Lopressor 25MG Tab] 50 mg PO DAILY 01/15/24 [History Confirmed 09/11/24] Carbidopa/Levodopa 25/100 mg [Sinemet 25/100 MG] 1 tab PO 1200 07/21/24 [History Confirmed 09/11/24] Furosemide 40 mg [Lasix 40 MG] 40 mg PO DAILY 08/14/24 [History Confirmed 09/11/24] Hydrocodone/Acetaminophen [[place] 10-325 mg] 1 tab PO DAILY PRN 08/14/24 [History Confirmed 09/11/24] Potassium Chloride 10 meq PO DAILY 08/14/24 [History Confirmed 09/11/24] Acetaminophen 325 mg [Tylenol 325 mg] 650 mg PO Q6HPRN PRN 09/11/24 [History Confirmed 09/11/24] Docusate Sodium 100 mg [Docusate Sodium 100 MG] 100 mg PO DAILY 09/11/24 [History Confirmed 09/11/24] Magnesium Hydroxide 30 ml [Milk of Magnesia 30 ml] 30 ml PO DAILY PRN PRN 09/11/24 [History Confirmed 09/11/24] Nirmatrelvir/Ritonavir [Paxlovid 150-100 mg Pack (Eua) (Renal Dosing)] 1 each PO BID #20 tab 09/11/24 [Rx] bisacodyL [Bisacodyl] 10 mg RC DAILY PRN PRN 09/11/24 [History Confirmed 09/11/24] Allergies/Adverse Reactions: Allergies Allergy/AdvReac Type Severity Reaction Status Date / Time No Known Drug Allergies Allergy Verified 07/21/24 07:00 Exam - Vitals Vital Signs: Vital Signs - 24 hr Temp Pulse Resp BP Pulse Ox 09/16/24 16:00 97.5 F 81 16 138/69 95 09/16/24 11:43 97.4 F 106 H 20 123/81 96 09/16/24 07:45 98.1 F 88 18 137/68 94 L 09/16/24 04:00 98.2 F 73 17 122/64 93 L 09/16/24 00:00 97.9 F 88 19 124/63 95 09/15/24 20:00 98.4 F 80 20 127/66 94 L General:: no acute distress HEENT: PERRLA, EOMI Cardiovascular Exam: regular rate/rhythm, normal heart sounds, No murmur, No friction rub, No gallop Respiratory Exam: other (left basilar crackles) SpO2: 95 Gastrointestinal/Abdomen Exam: normal bowel sounds Extremity Exam: edema (1+ edema of feet and half-way up to knees bilaterally. 2+ pulses.) Neurologic: psychometrist II-XII grossly intact, No motor deficits Results Vital Signs: Vital Signs - 24 hr Temp Pulse Resp BP Pulse Ox 09/16/24 16:00 97.5 F 81 16 138/69 95 09/16/24 11:43 97.4 F 106 H 20 123/81 96 09/16/24 07:45 98.1 F 88 18 137/68 94 L 09/16/24 04:00 98.2 F 73 17 122/64 93 L 09/16/24 00:00 97.9 F 88 19 124/63 95 09/15/24 20:00 98.4 F 80 20 127/66 94 L Pain Assessment - Last Documented Pain Intensity 6 Pain Scale Used 0-10 Pain Scale Intake and Output: Intake & Output 09/14/24 09/15/24 09/16/24 09/17/24 11:59 11:59 11:59 11:59 Intake Total 3217 1320 3991 360 Output Total 1600 2550 3900 800 Balance 1617 -1230 91 -440 Weight 111 kg 111 kg LAB: I have reviewed the Labs in [employer]. Radiology Exams: CARDIOVASCULAR ECG 09/11/2024: Electrical noise present. NSR at 80 bpm. Probably normal ECG. Telemetry this hospitalization: NSR at 65-82 bpm. No arrhythmias. TTE 09/13/[address] Barajas: 1. Normal LV size and function. 2. Mild concentric left ventricular hypertrophy. 3. Left ventricular ejection fraction estimated by 2D at 55-60 percent. 4. Mild to moderate right ventricular dilatation. Normal RV systolic function. 5. Aortic valve is tricuspid with mild sclerosis. 6. There is no significant pericardial effusion. 7. Per my review a. No vegetations b. Normal right atrial pressure. Carotid Doppler 02/12/2022: 1. Status post right carotid endarterectomy without critical stenosis/obstruction. 2. Stable left carotid arteriosclerotic plaquing as detailed. Velocity measurements and ratios remaining negative for hemodynamically significant flow-limiting stenosis. Cardiac catheterization approximately 2019: Per patient's report, no significant CAD. PCI not recommended. Myocardial perfusion scan 01/16/2015: 1. Normal MPS without evidence of a prior infarct or ischemia. 2. Gated images reveal normal wall motion. Calculated LVEF 46% (suspect this was erroneous). RADIOLOGY CXR (AP) 09/11/2024: Improving right infrahilar infiltrate/atelectasis with mild residual. Remaining heart and lungs unremarkable. Bony thorax intact again with osteopenia and mild degenerative changes. No new cardiopulmonary abnormalities. Multi-Disciplinary Progress Notes: Multi-Disciplinary Progress Notes 09/16/24 11:07 Case Management Note by Noa Phan S/W RAPHAEL AT [facility]- THEY ARE READY FOR PATIENT WHEN PATIENT IS MEDICALLY READY FOR DC. THEY WILL NEED UPDATED ON NEEDS FOR OSTOMY CARE TO BE SURE THEY HAVE THE APPROPRIATE SUPPLIES S/W PATIENT- HE CONTINUES TO PLAN TO GO TO [facility] FOR REHAB AT TIME OF DC. Initialized on 09/16/24 11:07 - END OF NOTE Assessment & Plan (1) Carotid artery disease Current Visit: Yes Status: Chronic Assessment & Plan: S/P right CEA in 2020. He may also have CAD which apparently was refuted on a cardiac cath in 2018 (report not available). No evaluation of coronary arteries since then. No history of angina though this could be hidden with his sedentary state. Code(s): I77.9 - DISORDER OF ARTERIES AND ARTERIOLES, UNSPECIFIED (2) Type 2 diabetes mellitus with hyperglycemia, without long-term current use of insulin Current Visit: Yes Status: Chronic Code(s): E11.65 - TYPE 2 DIABETES MELLITUS WITH HYPERGLYCEMIA (3) Pressure ulcer of buttock, unstageable Current Visit: Yes Status: Chronic Qualifiers: Laterality: unspecified laterality Qualified Code(s): L89.300 - Pressure ulcer of unspecified buttock, unstageable Assessment & Plan: Complicated by 2 recent infections including an enterococcal bacteremia. A diverting colostomy has been scheduled for tomorrow to help reduce his risk for infection. Code(s): L89.300 - PRESSURE ULCER OF UNSPECIFIED BUTTOCK, UNSTAGEABLE (4) Encounter for preoperative assessment for noncoronary cardiac surgery Current Visit: Yes Status: Acute Assessment & Plan: Ideally would like to perform a chemical MPS with his sedentary state over the past 1.5 years, but nursing has informed me that inpatient testing cannot be performed here. He has not had any documentation or symptoms of angina, despite his known carotid artery disease. With the inability to perform a chemical MPS, he is at a moderate risk for general anesthesia. Will restart metoprolol tartrate but at a lower dose (12.5 mg BID) with his recent hypotension. Can increase to 25 mg BID in the am if he tolerates the first dose. Code(s): Z01.810 - ENCOUNTER FOR PREPROCEDURAL CARDIOVASCULAR EXAMINATION - Encounter Encounter: "The entirety of this encounter was performed via Telemedicine using audio and visual. " Permission granted by patient for this type of encounter. Michael Daniels MD [facility] [phone]
[2024-09-16] MEDS: NEOMYCIN SULFATE 500 MG PO SCH (21:17)
[2024-09-16] MEDS: E.E.S. 200 PO SCH (21:18)
[2024-09-16] MEDS: Lopressor 25MG Tab PO SCH (23:37)
[2024-09-17 05:08] LABS: Hematocrit 24.3 % (40.1-51.0); Hemoglobin 7.9 g/dL (13.7-17.5); Mean Corpuscular Hemoglobin 27.6 pg (25.7-32.2); Mean Corpuscular Hgb Concent. 32.5 g/dL (32.3-36.5); Mean Platelet Volume 9.2 fL (9.4-12.4); Platelet Count 167 x10^3/uL (163-337); Red Blood Count 2.86 x10^6/uL (4.63-6.08); Red Cell Distribution Width 13.9 % (11.6-14.4); White Blood Count 5.8 x10^3/uL (4.23-9.07)
[2024-09-17 05:30] LABS: ALBUMIN 2.5 g/dL (3.5-5.0); ANION GAP 6.5 MEQ/L (5-15); BILIRUBIN,TOTAL 0.4 mg/dL (0.2-1.3); Calcium 7.9 mg/dL (8.4-10.2); Creatinine 1 0.65 mg/dL (0.66-1.25); EST GLOMERULAR FILTRATION RATE 97.7 ML/MIN; Potassium 3.7 mmol/L (3.5-5.1); Total Protein 5.4 g/dL (6.3-8.2)
[2024-09-17] MEDS: Lopressor 25MG Tab PO SCH (10:12)
--- NOTE | 2024-09-17 10:28 | PCM.NOTE ---
Date and Time: 09/17/24 1019 Subjective Assessment: 09/16/24 Pt resting in bed. He is starting Golytely prep today as he is having an ostomy placed by general surgery tomorrow. This is being done to aide in wound healing. CK improved- continue IV fluids. Continue IV antibiotics for sacral wound. Keep in isolation for COVID. Echo results pending. Corrected calcium 8.4. Pt denies CP, SOB, Abd. pain, N/V/D. 09/17/24 Pt resting in bed. BLLE edema today and elevated with pillows to decrease edema. Per cardiology pt needs to have a nuclear med cardiac stress today he is scheduled to have this this morning. Pending the results of this he will have and ostomy placed by surgery. Echo EF 55-60% and did not show any vegetation. Cardiology consult recommended by admin LAWSON Cevallos and nursing case management yesterday. This was not a request by general surgery. Per cardiology note pt case will be discussed with GS by cardiology. Pt has diarrhea today and we do not supply rectal tubes at this facility per director community health nursing. Pt denies CP, SOB, abd. pain, N/V/D. - Review of Systems Constitutional: No Fever, No Chills Eyes: No Symptoms Ears, Nose, & Throat: No Symptoms Respiratory: No Cough, No Short Of Breath Cardiac: No Chest Pain, No Edema, No Syncope Abdominal/Gastrointestinal: Diarrhea, No Abdominal Pain, No Nausea, No Vomiting Genitourinary Symptoms: No Dysuria Musculoskeletal: No Back Pain, No Neck Pain Skin: Skin Lesions (sacral wound), No Rash Neurological: No Dizziness, No Focal Weakness, No Sensory Changes Psychological: No Symptoms Endocrine: No Symptoms Hematologic/Lymphatic: No Symptoms Immunological/Allergic: No Symptoms Objective Exam General Appearance: no apparent distress, alert, obese Neurologic Exam: alert, oriented x 3, cooperative, normal mood/affect, nml cerebellar function, sensation nml, No motor deficits Skin Exam: normal color, warm, dry, other (Sacral wound) Wound Assessment: Skin/Wound Assessment Wound/Incision Assessment Start: 09/11/24 20:04 Text: Status: Active Freq: Q6H Protocol: Document 09/17/24 02:00 KD (Rec: 09/17/24 02:44 KD [id number]) Wound/Incision Assessment Intergluteal Cleft Wound Assessment Shift Assessment Wound Type Pressure Ulcer Wound Stage Unstageable Dressing Status Dry & Intact Packing Type Gauze Roll Primary Dressing Absorbant Pad Comment dressing CDI, scheduled to be changed BID Wound Photo Photo Taken No Eye Exam: PERRL, EOMI, eyes nml inspection Ears, Nose, Throat Exam: normal ENT inspection, pharynx normal, moist mucous membranes Neck Exam: normal inspection, non-tender, supple, full range of motion Respiratory Exam: normal breath sounds, lungs clear, No respiratory distress Cardiovascular Exam: regular rate/rhythm, normal heart sounds Gastrointestinal/Abdomen Exam: soft, No tenderness, No mass Extremity Exam: normal inspection, normal range of motion Back Exam: normal inspection, normal range of motion, No CVA tenderness, No vertebral tenderness Male Genitalia Exam: deferred Rectal Exam: deferred Objective Data Vital Signs: Vital Signs - 24 hr Temp Pulse Resp BP Pulse Ox 09/17/24 08:00 98.9 F 94 H 17 131/60 94 L 09/17/24 05:22 95 09/17/24 04:00 98.5 F 70 20 117/61 95 09/16/24 23:53 98.4 F 77 18 103/56 93 L 09/16/24 19:49 97.9 F 85 20 104/52 95 09/16/24 16:00 97.5 F 81 16 138/69 95 09/16/24 11:43 97.4 F 106 H 20 123/81 96 Pain Assessment - Last Documented Pain Intensity 7 Pain Scale Used 0-10 Pain Scale Intake and Output: Intake & Output 09/14/24 09/15/24 09/16/24 09/17/24 11:59 11:59 11:59 11:59 Intake Total 3217 1320 3991 1750 Output Total 1600 2550 3900 1950 Balance 1617 -1230 91 -200 Weight 111 kg 111 kg 116.5 kg Lab Results: Lab Results-Last 24 Hours 09/13/24 09/16/24 09/16/24 Range/Units 14:12 11:29 15:49 WBC (4.23-9.07) x10^3/uL RBC (4.63-6.08) x10^6/uL Hgb (13.7-17.5) g/dL Hct (40.1-51.0) % MCV (79.0-92.2) fL MCH (25.7-32.2) pg MCHC (32.3-36.5) g/dL RDW (11.6-14.4) % Plt Count (163-337) x10^3/uL MPV (9.4-12.4) fL Sodium (135-145) mmol/L Potassium (3.5-5.1) mmol/L Chloride (98-107) mmol/L Carbon Dioxide (22-30) mmol/L Anion Gap (5-15) MEQ/L BUN (9-20) mg/dL Creatinine (0.66-1.25) mg/dL Estimated GFR ML/MIN Glucose (74-106) mg/dL POC Glucometer 117 H 103 (74 to 106) mg/dL Calcium (8.4-10.2) mg/dL Total Bilirubin (0.2-1.3) mg/dL AST (17-59) U/L ALT (0-50) U/L Alkaline Phosphatase (38-126) U/L Serum Total Protein (6.3-8.2) g/dL Albumin (3.5-5.0) g/dL Surg PTH Specimen SEE COMMENTS 09/16/24 09/17/24 09/17/24 Range/Units 22:33 04:06 04:06 WBC 5.8 (4.23-9.07) x10^3/uL RBC 2.86 L (4.63-6.08) x10^6/uL Hgb 7.9 L (13.7-17.5) g/dL Hct 24.3 L (40.1-51.0) % MCV 85.0 (79.0-92.2) fL MCH 27.6 (25.7-32.2) pg MCHC 32.5 (32.3-36.5) g/dL RDW 13.9 (11.6-14.4) % Plt Count 167 (163-337) x10^3/uL MPV 9.2 L (9.4-12.4) fL Sodium 135 (135-145) mmol/L Potassium 3.7 (3.5-5.1) mmol/L Chloride 106 (98-107) mmol/L Carbon Dioxide 26 (22-30) mmol/L Anion Gap 6.5 (5-15) MEQ/L BUN 14 (9-20) mg/dL Creatinine 0.65 L (0.66-1.25) mg/dL Estimated GFR 97.7 ML/MIN Glucose 106 (74-106) mg/dL POC Glucometer 111 H (74 to 106) mg/dL Calcium 7.9 L (8.4-10.2) mg/dL Total Bilirubin 0.40 (0.2-1.3) mg/dL AST 36 (17-59) U/L ALT 21 (0-50) U/L Alkaline Phosphatase 71 (38-126) U/L Serum Total Protein 5.4 L (6.3-8.2) g/dL Albumin 2.5 L (3.5-5.0) g/dL Surg PTH Specimen 09/17/24 Range/Units 07:04 WBC (4.23-9.07) x10^3/uL RBC (4.63-6.08) x10^6/uL Hgb (13.7-17.5) g/dL Hct (40.1-51.0) % MCV (79.0-92.2) fL MCH (25.7-32.2) pg MCHC (32.3-36.5) g/dL RDW (11.6-14.4) % Plt Count (163-337) x10^3/uL MPV (9.4-12.4) fL Sodium (135-145) mmol/L Potassium (3.5-5.1) mmol/L Chloride (98-107) mmol/L Carbon Dioxide (22-30) mmol/L Anion Gap (5-15) MEQ/L BUN (9-20) mg/dL Creatinine (0.66-1.25) mg/dL Estimated GFR ML/MIN Glucose (74-106) mg/dL POC Glucometer 120 H (74 to 106) mg/dL Calcium (8.4-10.2) mg/dL Total Bilirubin (0.2-1.3) mg/dL AST (17-59) U/L ALT (0-50) U/L Alkaline Phosphatase (38-126) U/L Serum Total Protein (6.3-8.2) g/dL Albumin (3.5-5.0) g/dL Surg PTH Specimen Multi-Disciplinary Progress Notes: Multi-Disciplinary Progress Notes 09/17/24 09:40 Case Management Note by Noa Phan CLINICAL UPDATE FAXED TO [facility] Initialized on 09/17/24 09:40 - END OF NOTE 09/16/24 11:07 Case Management Note by Noa Phan S/W RAPHAEL AT [facility]- THEY ARE READY FOR PATIENT WHEN PATIENT IS MEDICALLY READY FOR DC. THEY WILL NEED UPDATED ON NEEDS FOR OSTOMY CARE TO BE SURE THEY HAVE THE APPROPRIATE SUPPLIES S/W PATIENT- HE CONTINUES TO PLAN TO GO TO [facility] FOR REHAB AT TIME OF DC. Initialized on 09/16/24 11:07 - END OF NOTE Assessment/Plan (1) Pressure ulcer of buttock, unstageable Current Visit: Yes Status: Chronic Qualifiers: Laterality: unspecified laterality Qualified Code(s): L89.300 - Pressure ulcer of unspecified buttock, unstageable Code(s): L89.300 - PRESSURE ULCER OF UNSPECIFIED BUTTOCK, UNSTAGEABLE (2) Bacteremia due to Enterococcus Current Visit: Yes Status: Acute Code(s): R78.81 - BACTEREMIA; B95.2 - ENTEROCOCCUS THE CAUSE OF DISEASES CLASSIFIED ELSEWHERE (3) HTN (hypertension) Current Visit: Yes Status: Chronic Qualifiers: Hypertension type: primary hypertension Qualified Code(s): I10 - Essential (primary) hypertension Code(s): I10 - ESSENTIAL (PRIMARY) HYPERTENSION (4) Type II diabetes mellitus Current Visit: Yes Status: Chronic Qualifiers: Diabetes mellitus termite exterminator insulin use: without longterm use Diabetes demetrius litus complication status: with hyperglycemia Qualified Code(s): E11.65 - Type 2 diabetes mellitus with hyperglycemia (5) Rhabdomyolysis Current Visit: Yes Status: Acute Code(s): M62.82 - RHABDOMYOLYSIS (6) COVID-19 Current Visit: Yes Status: Acute Code(s): U07.1 - COVID-19 (7) Parkinson disease Current Visit: Yes Status: Chronic Qualifiers: Dyskinesia presence: with dyskinesia Fluctuating manifestations: with fluctuating manifestations Qualified Code(s): G20.B2 - Parkinson's disease with dyskinesia, with fluctuations Code(s): G20.A1 - PARKINSON'S DIS W/O DYSKINESIA, W/O MENTION OF FLUCTUATIONS (8) Anemia Current Visit: No Status: Chronic Code(s): D64.9 - ANEMIA, UNSPECIFIED (9) Hyperlipidemia Current Visit: No Status: Chronic Code(s): E78.5 - HYPERLIPIDEMIA, UNSPECIFIED (10) Obesity (BMI 30-39.9) Current Visit: No Status: Chronic Assessment & Plan: (1) Pressure ulcer of buttock, unstageable Current Visit: Yes Status: Chronic Qualifiers: Laterality: unspecified laterality Qualified Code(s): L89.300 - Pressure ulcer of unspecified buttock, unstageable Assessment & Plan: - Continue antibiotics and wound care. - Colostomy planned on Friday. - Start Golytley today - CBC, CMP reviewed - Tele - Vancomycin IV 09/17 - + diarrhea - no rectal tube available at this facility - CBC, CMP reviewed - Colostomy by GS today if cardiac stress test ok - this will help to aide in wound healing. - stress test recommended per cardiology Code(s): L89.300 - PRESSURE ULCER OF UNSPECIFIED BUTTOCK, UNSTAGEABLE (2) Bacteremia due to Enterococcus Current Visit: Yes Status: Acute Assessment & Plan: - Source is likely the patient's wound. - No murmur on exam. - Electrocardiogram pending. - NGTD on repeat culture. - On IV Vancomycin. - If ECHO negative for vegetations and if repeat Cx shows NGTD, can consider PICC line placement with a plan for 7 days IV vancomycin 1/ - Repeat cultures negative 09/17 - Echo results show no vegetation on heart valves - PICC line placement TTE 09/13/[address] Barajas: 1. Normal LV size and function. 2. Mild concentric left ventricular hypertrophy. 3. Left ventricular ejection fraction estimated by 2D at 55-60 percent. 4. Mild to moderate right ventricular dilatation. Normal RV systolic function. 5. Aortic valve is tricuspid with mild sclerosis. 6. There is no significant pericardial effusion. 7. Per my review a. No vegetations b. Normal right atrial pressure. Carotid Doppler 02/12/2022: 1. Status post right carotid endarterectomy without critical stenosis/obstruction. 2. Stable left carotid arteriosclerotic plaquing as detailed. Velocity measurements and ratios remaining negative for hemodynamically significant flow-limiting stenosis. Cardiac catheterization approximately 2019: Per patient's report, no significant CAD. PCI not recommended. Myocardial perfusion scan 01/16/2015: 1. Normal MPS without evidence of a prior infarct or ischemia. 2. Gated images reveal normal wall motion. Calculated LVEF 46% (suspect this was erroneous). - Cardiology note reviewed and agree with plan of care Code(s): R78.81 - BACTEREMIA; B95.2 - ENTEROCOCCUS THE CAUSE OF DISEASES CLASSIFIED ELSEWHERE (3) HTN (hypertension) Current Visit: Yes Status: Chronic Qualifiers: Hypertension type: primary hypertension Qualified Code(s): I10 - Essential (primary) hypertension Assessment & Plan: - Monitor BP - Continue home meds 1/3 - metoprolol 12.5 started last night by cardiology and recommended to increase to 25mg BID if well tolerated - metoprolol increased to 25mg BID today Code(s): I10 - ESSENTIAL (PRIMARY) HYPERTENSION (4) Type II diabetes mellitus Current Visit: Yes Status: Chronic Qualifiers: Diabetes mellitus termite exterminator insulin use: without longterm use Diabetes mellitus complication status: with hyperglycemia Qualified Code(s): E11.65 - Type 2 diabetes mellitus with hyperglycemia Assessment & Plan: - Accuchecks AC/HS - ADA diet - SSI - A1c 6.60- controlled (5) Rhabdomyolysis Current Visit: Yes Status: Acute Assessment & Plan: - Continue to trend CPK. - Ck 278- improving - IV fluids Code(s): M62.82 - RHABDOMYOLYSIS (6) COVID-19 Current Visit: Yes Status: Acute Assessment & Plan: - Isolation precautions Code(s): U07.1 - COVID-19 Code(s): U07.1 - COVID-19 (7) Parkinson disease Current Visit: Yes Status: Chronic Qualifiers: Dyskinesia presence: with dyskinesia Fluctuating manifestations: with fluctuating manifestations Qualified Code(s): G20.B2 - Parkinson's disease with dyskinesia, with fluctuations Assessment & Plan: -continue home meds Code(s): G20.A1 - PARKINSON'S DIS W/O DYSKINESIA, W/O MENTION OF FLUCTUATIONS (8) Anemia Current Visit: No Status: Chronic Assessment & Plan: -Chronic and at baseline -Reviewed cbc -transfuse if < 7 1/3 - Hgb 7.9 - iron studies - Consider ferrous sulfate - Type and screen Code(s): D64.9 - ANEMIA, UNSPECIFIED (9) Hyperlipidemia Current Visit: No Status: Chronic Assessment & Plan: -continue statin Code(s): E78.5 - HYPERLIPIDEMIA, UNSPECIFIED (10) Obesity (BMI 30-39.9) Current Visit: No Status: Chronic Assessment & Plan: -advised diet and exercise control Code(s): E66.9 - OBESITY, UNSPECIFIED (11) Carotid artery disease Current Visit: Yes Status: Chronic Assessment & Plan: - Per cardiology-S/P right CEA in 2020. He may also have CAD which apparently was refuted on a cardiac cath in 2018 (report not available). No evaluation of coronary arteries since then. No history of angina though this could be hidden with his sedentary state. VTE: Lovenox PPI: Protonix Next of KIN: Callie Talavera, Friend [phone] D/C plan: per surgery recs Code status: Full Code(s): I77.9 - DISORDER OF ARTERIES AND ARTERIOLES, UNSPECIFIED
--- NOTE | 2024-09-17 12:17 | XRAY ---
Indication: PICC line placement. Comparison: September 11, 2024 Portable chest again demonstrates right arm PICC line with tip now projecting over atriocaval junction. Lungs are now underinflated, accentuating cardiopulmonary structures with new left base infiltrate/atelectasis.
[2024-09-17] MEDS ORDERED: Sensorcaine 0.25% 10 ML ONE (12:50)
[2024-09-17] MEDS ORDERED: Sodium Chloride 0.9% 1000 ML 1,000 ML ONE (12:50)
[2024-09-17] MEDS: MORPHINE SULFATE 2 MG INJ IV PRN (13:13)
[2024-09-17 13:42] LABS: Iron 38 ug/dL (49-181); Iron Saturation 19 % (20-39); TIBC 196 ug/dL (261-497)
[2024-09-17] MEDS: MORPHINE SULFATE 2 MG INJ IV ONE (14:00)
[2024-09-17] MEDS: REGADENOSON IV ONE (14:00)
[2024-09-17 14:37] LABS: Folate (Folic Acid) 2.21 ng/mL (2.76 - >20)
--- NOTE | 2024-09-17 15:00 | XRAY ---
Indication: Chest pain. Preop exam. History of stents, diabetes, and hypertension. Comparison: None Patient received 27.4 mCi technetium 99 Myoview for the stress portion of the exam and 10.5 mCi technetium 99 Myoview for the resting. 0.4 mg IV Lexiscan given as a farm colonic stressor. Images obtained in short, vertical, and horizontal axis. Left ventricle chamber is normal in size and configuration. Stress images demonstrates very small focus perfusion defect involving apical inferior lateral wall. This reperfuses with resting favoring reversible ischemia. No other fixed or reversible perfusion defects. Gated SPECT images demonstrates normal ventricular contractility and wall motion. Ejection fraction calculated 58%, normal. Impression: 1. Very small focus pharmacologic induced reversible ischemia apical inferior lateral wall. 2. Normal ejection fraction.
[2024-09-17] MEDS: ENTEREG 12 MG PO ONE (15:07)
--- NOTE | 2024-09-17 15:22 | XRAY ---
Indication: Recheck PICC placement. Comparison: Taken earlier in the day. Portable chest demonstrates right arm PICC line withdrawal with tip now projecting over SVC. Remaining heart and lungs unchanged again with mild left lung base infiltrate/atelectasis.
[2024-09-17 15:54] LABS: ABO TYPING O; Antibody Screen NEGATIVE (NEGATIVE); RH TYPING POSITIVE
[2024-09-17] MEDS: Venofer 100 MG/5 ML*** 200 MG in Sodium Chloride 0.9% 100 ML IV SCH (16:46)
--- NOTE | 2024-09-17 17:16 | PCM.NOTE ---
Date and Time: 09/17/241713 Subjective Assessment: Patient without any complaints. Ready to go forward with surgery. Exam General:: no acute distress HEENT: EOMI, No JVD Cardiovascular: Regular Rate & Rhythm Respiratory:: clear to auscultation [place], No wheezing Abdominal: active bowel sounds x 4 Extremity Exam: edema (trace to 1+ below knees bilaterally.) Neurologic: epic ambulatory analysts II-XII grossly intact (Grossly nonfocal.) Objective Data Vital Signs: Vital Signs - 24 hr Temp Pulse Resp BP Pulse Ox 09/17/24 16:00 97.9 F 84 16 120/78 09/17/24 12:00 97.9 F 83 18 143/66 95 09/17/24 08:00 98.9 F 94 H 17 131/60 94 L 09/17/24 05:22 95 09/17/24 04:00 98.5 F 70 20 117/61 95 09/16/24 23:53 98.4 F 77 18 103/56 93 L 09/16/24 19:49 97.9 F 85 20 104/52 95 Pain Assessment - Last Documented Pain Intensity 2 Pain Scale Used 0-10 Pain Scale Intake and Output: Intake & Output 09/15/24 09/16/24 09/17/24 09/18/24 11:59 11:59 11:59 11:59 Intake Total 1320 3991 1750 Output Total 2550 3900 1950 600 Balance -1230 91 -200 -600 Weight 111 kg 116.5 kg LAB: I have reviewed the Labs in [employer]. Lab Results: Lab Results-Last 24 Hours 09/16/24 09/17/24 09/17/24 Range/Units 22:33 04:06 04:06 WBC 5.8 (4.23-9.07) x10^3/uL RBC 2.86 L (4.63-6.08) x10^6/uL Hgb 7.9 L (13.7-17.5) g/dL Hct 24.3 L (40.1-51.0) % MCV 85.0 (79.0-92.2) fL MCH 27.6 (25.7-32.2) pg MCHC 32.5 (32.3-36.5) g/dL RDW 13.9 (11.6-14.4) % Plt Count 167 (163-337) x10^3/uL MPV 9.2 L (9.4-12.4) fL Sodium 135 (135-145) mmol/L Potassium 3.7 (3.5-5.1) mmol/L Chloride 106 (98-107) mmol/L Carbon Dioxide 26 (22-30) mmol/L Anion Gap 6.5 (5-15) MEQ/L BUN 14 (9-20) mg/dL Creatinine 0.65 L (0.66-1.25) mg/dL Estimated GFR 97.7 ML/MIN Glucose 106 (74-106) mg/dL POC Glucometer 111 H (74 to 106) mg/dL Calcium 7.9 L (8.4-10.2) mg/dL Iron (49-181) ug/dL TIBC (261-497) ug/dL Iron Saturation (20-39) % Ferritin (17.9-464) ng/mL Total Bilirubin 0.40 (0.2-1.3) mg/dL AST 36 (17-59) U/L ALT 21 (0-50) U/L Alkaline Phosphatase 71 (38-126) U/L Serum Total Protein 5.4 L (6.3-8.2) g/dL Albumin 2.5 L (3.5-5.0) g/dL Vitamin B12 (239-931) pg/mL Folic Acid (2.76 - >20) ng/mL ABO Group Rh Factor Antibody Screen (NEGATIVE) 09/17/24 09/17/24 09/17/24 Range/Units 04:06 04:06 07:04 WBC (4.23-9.07) x10^3/uL RBC (4.63-6.08) x10^6/uL Hgb (13.7-17.5) g/dL Hct (40.1-51.0) % MCV (79.0-92.2) fL MCH (25.7-32.2) pg MCHC (32.3-36.5) g/dL RDW (11.6-14.4) % Plt Count (163-337) x10^3/uL MPV (9.4-12.4) fL Sodium (135-145) mmol/L Potassium (3.5-5.1) mmol/L Chloride (98-107) mmol/L Carbon Dioxide (22-30) mmol/L Anion Gap (5-15) MEQ/L BUN (9-20) mg/dL Creatinine (0.66-1.25) mg/dL Estimated GFR ML/MIN Glucose (74-106) mg/dL POC Glucometer 120 H (74 to 106) mg/dL Calcium (8.4-10.2) mg/dL Iron 38 L (49-181) ug/dL TIBC 196 L (261-497) ug/dL Iron Saturation 19 L (20-39) % Ferritin 444 (17.9-464) ng/mL Total Bilirubin (0.2-1.3) mg/dL AST (17-59) U/L ALT (0-50) U/L Alkaline Phosphatase (38-126) U/L Serum Total Protein (6.3-8.2) g/dL Albumin (3.5-5.0) g/dL Vitamin B12 396 (239-931) pg/mL Folic Acid 2.21 L (2.76 - >20) ng/mL ABO Group Rh Factor Antibody Screen (NEGATIVE) 09/17/24 09/17/24 09/17/24 Range/Units 11:26 15:00 16:50 WBC (4.23-9.07) x10^3/uL RBC (4.63-6.08) x10^6/uL Hgb (13.7-17.5) g/dL Hct (40.1-51.0) % MCV (79.0-92.2) fL MCH (25.7-32.2) pg MCHC (32.3-36.5) g/dL RDW (11.6-14.4) % Plt Count (163-337) x10^3/uL MPV (9.4-12.4) fL Sodium (135-145) mmol/L Potassium (3.5-5.1) mmol/L Chloride (98-107) mmol/L Carbon Dioxide (22-30) mmol/L Anion Gap (5-15) MEQ/L BUN (9-20) mg/dL Creatinine (0.66-1.25) mg/dL Estimated GFR ML/MIN Glucose (74-106) mg/dL POC Glucometer 101 101 (74 to 106) mg/dL Calcium (8.4-10.2) mg/dL Iron (49-181) ug/dL TIBC (261-497) ug/dL Iron Saturation (20-39) % Ferritin (17.9-464) ng/mL Total Bilirubin (0.2-1.3) mg/dL AST (17-59) U/L ALT (0-50) U/L Alkaline Phosphatase (38-126) U/L Serum Total Protein (6.3-8.2) g/dL Albumin (3.5-5.0) g/dL Vitamin B12 (239-931) pg/mL Folic Acid (2.76 - >20) ng/mL ABO Group O Rh Factor POSITIVE Antibody Screen NEGATIVE (NEGATIVE) Radiology Exams: Radiology Procedures Category Date Time Status CHEST 1 VIEW (PORTABLE) Stat Exams 09/17/24 11:49 Completed CHEST 1 VIEW (PORTABLE) Stat Exams 09/17/24 14:47 Completed HEART SPECT MULTIPLE [NUCMED] Routine Exams 09/17/24 12:47 Completed CARDIOLOGY ECGs: 09/17/2024: NSR. Nonspecific T wave abnormality. 09/11/2024: Electrical noise present. NSR at 80 bpm. Probably normal ECG. Telemetry this hospitalization: NSR. No arrhythmias. Regadenoson MPS 09/17/2024 per radiologist: 1. Very small focus pharmacologic induced reversible ischemia apical inferior lateral wall. 2. Normal ejection fraction with EF 58%. Normal contractility. TTE 09/13/[address] Barajas: 1. Normal LV size and function. 2. Mild concentric left ventricular hypertrophy. 3. Left ventricular ejection fraction estimated by 2D at 55-60 percent. 4. Mild to moderate right ventricular dilatation. Normal RV systolic function. 5. Aortic valve is tricuspid with mild sclerosis. 6. There is no significant pericardial effusion. 7. Per my review a. No vegetations b. Normal right atrial pressure. RADIOLOGY CXR (AP) 09/17/2024: Portable chest demonstrates right arm PICC line withdrawal with tip now projecting over SVC. Remaining heart and lungs unchanged again with mild left lung base infiltrate/atelectasis. 09/11/2024: Improving right infrahilar infiltrate/atelectasis with mild residual. Remaining heart and lungs unremarkable. Bony thorax intact again with osteopenia and mild degenerative changes. No new cardiopulmonary abnormalities. Multi-Disciplinary Progress Notes: Multi-Disciplinary Progress Notes 09/17/24 13:50 Case Management Note by Noa Phan PATIENT CONTINUES TO PLAN TO GO TO [facility] FOR REHAB. S/W RAPHAEL AT [facility]- THEY ARE READY FOR PATIENT WHEN HE IS READY FOR DC Initialized on 09/17/24 13:50 - END OF NOTE 09/17/24 09:40 Case Management Note by Noa Phan CLINICAL UPDATE FAXED TO [facility] Initialized on 09/17/24 09:40 - END OF NOTE Assessment & Plan (1) Atherosclerosis of coronary artery without angina pectoris Current Visit: Yes Status: Acute Assessment & Plan: Today's regadenoson MPS represents a low risk scan with a very small area of ischemia in the apical inferolateral wall per radiologist. This possibly may be a normal variant with apical thinning. Patient without any history of angina. Code(s): I25.10 - ATHSCL HEART DISEASE OF [place] CORONARY ARTERY W/O ANG PCTRS (2) Pressure ulcer of buttock, unstageable Current Visit: Yes Status: Chronic Qualifiers: Laterality: unspecified laterality Qualified Code(s): L89.300 - Pressure ulcer of unspecified buttock, unstageable Assessment & Plan: On schedule this evening for a diverting colostomy to reduce risk of further infections of his decubitus ulcers. Code(s): L89.300 - PRESSURE ULCER OF UNSPECIFIED BUTTOCK, UNSTAGEABLE (3) Encounter for preoperative assessment for noncoronary cardiac surgery Current Visit: Yes Status: Acute Assessment & Plan: Mr Lorenz is at a mildly increased risk for general anesthesia. Continue metoprolol nick-operatively. I will follow-up on 09/19. Please call the person control and recovery combat rescue for my group tomorrow if any questions arise. Code(s): Z01.810 - ENCOUNTER FOR PREPROCEDURAL CARDIOVASCULAR EXAMINATION - Encounter Encounter: "The entirety of this encounter was performed via Telemedicine using audio and visual " Findings of chemical MPS discussed with Jaja Rehman NP. Michael Howell MD [facility] [phone]
[2024-09-18] MEDS: Lactated Ringers 1,000 ML IV SCH (05:28)
[2024-09-18 06:02] LABS: Hematocrit 26.3 % (40.1-51.0); Hemoglobin 8.2 g/dL (13.7-17.5); Mean Cell Volume 85.7 fL (79.0-92.2); Mean Corpuscular Hemoglobin 26.7 pg (25.7-32.2); Mean Corpuscular Hgb Concent. 31.2 g/dL (32.3-36.5); Mean Platelet Volume 9.2 fL (9.4-12.4); Platelet Count 182 x10^3/uL (163-337); Red Blood Count 3.07 x10^6/uL (4.63-6.08); White Blood Count 6.5 x10^3/uL (4.23-9.07)
[2024-09-18] MEDS: MEFOXIN 2 GM PREMIX** 2 GM/50 ML ML IV SCH ×3 (06:14→21:15)
[2024-09-18 06:20] LABS: ALBUMIN 2.7 g/dL (3.5-5.0); ANION GAP 6.4 MEQ/L (5-15); BILIRUBIN,TOTAL 0.4 mg/dL (0.2-1.3); Creatinine 1 0.58 mg/dL (0.66-1.25); EST GLOMERULAR FILTRATION RATE 101.1 ML/MIN; Potassium 3.6 mmol/L (3.5-5.1); Total Protein 5.7 g/dL (6.3-8.2)
[2024-09-18] MEDS ORDERED: propofoL IV ONE (06:53)
[2024-09-18] MEDS ORDERED: Quelicin Fliptop 200 MG/10 ML ONE (06:54)
[2024-09-18] MEDS ORDERED: Zofran 4 MG/2 ML VIAL ONE (06:54)
[2024-09-18] MEDS ORDERED: ROCURONIUM BROMIDE IV ONE ×2 (06:54→08:31)
[2024-09-18] MEDS ORDERED: SUBLIMAZE 100 MCG/2 ML ONE ×2 (07:12→09:43)
[2024-09-18] MEDS ORDERED: BRIDION 200MG/2ML IV ONE (08:58)
[2024-09-18] MEDS ORDERED: Hydromorphone 1 mg/ml Injection ONE (09:21)
--- NOTE | 2024-09-18 10:46 | PCM.NOTE ---
Date and Time: 09/18/24 1040 Subjective Assessment: 09/16/24 Pt resting in bed. He is starting Golytely prep today as he is having an ostomy placed by general surgery tomorrow. This is being done to aide in wound healing. CK improved- continue IV fluids. Continue IV antibiotics for sacral wound. Keep in isolation for COVID. Echo results pending. Corrected calcium 8.4. Pt denies CP, SOB, Abd. pain, N/V/D. 09/17/24 Pt resting in bed. BLLE edema today and elevated with pillows to decrease edema. Per cardiology pt needs to have a nuclear med cardiac stress today he is scheduled to have this this morning. Pending the results of this he will have and ostomy placed by surgery. Echo EF 55-60% and did not show any vegetation. Cardiology consult recommended by admin LAWSON Cevallos and nursing case management yesterday. This was not a request by general surgery. Per cardiology note pt case will be discussed with GS by cardiology. Pt has diarrhea today and we do not supply rectal tubes at this facility per nursing specialist. Pt denies CP, SOB, abd. pain, N/V/D. 09/18/24 Pt resting in bed post op surgery for colostomy today. He was to have surgery yesterday but was not cleared in time for procedure by cardiology and surgery decided to wait another day. PICC line place yesterday as pt will need OP antibiotics. Plan at d/c will be for pt to go to rehab and pt is amenable. Continue IV fluids, antibiotics. Per GS restart Lovenox tomorrow. Pt denies any further concerns at this time. - Review of Systems Constitutional: No Fever, No Chills Eyes: No Symptoms Ears, Nose, & Throat: No Symptoms Respiratory: No Cough, No Short Of Breath Cardiac: No Chest Pain, No Edema, No Syncope Abdominal/Gastrointestinal: No Abdominal Pain, No Nausea, No Vomiting, No Diarrhea Genitourinary Symptoms: No Dysuria Musculoskeletal: No Back Pain, No Neck Pain Skin: No Rash Neurological: No Dizziness, No Focal Weakness, No Sensory Changes Psychological: No Symptoms Endocrine: No Symptoms Hematologic/Lymphatic: No Symptoms Immunological/Allergic: No Symptoms Objective Exam General Appearance: no apparent distress, alert Neurologic Exam: alert, oriented x 3, cooperative, normal mood/affect, nml cerebellar function, sensation nml, No motor deficits Skin Exam: normal color, warm, dry Wound Assessment: Skin/Wound Assessment Wound/Incision Assessment Start: 09/11/24 20:04 Text: Status: Active Freq: Q6H Protocol: Document 09/18/24 02:00 LB (Rec: 09/18/24 02:24 LB [id number]) Wound/Incision Assessment Intergluteal Cleft Wound Assessment Shift Assessment Wound Type Pressure Ulcer Wound Stage Unstageable Dressing Status Dry & Intact Primary Dressing Absorbant Pad Wound Photo Photo Taken No Eye Exam: PERRL, EOMI, eyes nml inspection Ears, Nose, Throat Exam: normal ENT inspection, pharynx normal, moist mucous membranes Neck Exam: normal inspection, non-tender, supple, full range of motion Respiratory Exam: normal breath sounds, lungs clear, No respiratory distress Cardiovascular Exam: regular rate/rhythm, normal heart sounds Gastrointestinal/Abdomen Exam: soft, No tenderness, No mass Extremity Exam: normal inspection, normal range of motion Back Exam: normal inspection, normal range of motion, No CVA tenderness, No vertebral tenderness Male Genitalia Exam: deferred Rectal Exam: deferred Objective Data Vital Signs: Vital Signs - 24 hr Temp Pulse Resp BP Pulse Ox 09/18/24 05:45 98.2 F 72 20 127/66 95 09/18/24 05:00 98.2 F 72 20 127/66 95 09/18/24 01:00 20 09/17/24 20:12 97.2 F 66 18 127/59 96 09/17/24 17:28 98.2 F 74 19 136/73 98 09/17/24 16:00 97.9 F 84 16 120/78 09/17/24 12:00 97.9 F 83 18 143/66 95 Pain Assessment - Last Documented Pain Intensity 7 Pain Scale Used 0-10 Pain Scale Intake and Output: Intake & Output 09/15/24 09/16/24 09/17/24 09/18/24 11:59 11:59 11:59 11:59 Intake Total 1320 3991 1750 20 Output Total 2550 3900 1950 2350 Balance -1230 91 -200 -2330 Weight 111 kg 116.5 kg 118.1 kg Lab Results: Lab Results-Last 24 Hours 09/17/24 09/17/24 09/17/24 Range/Units 04:06 04:06 11:26 WBC (4.23-9.07) x10^3/uL RBC (4.63-6.08) x10^6/uL Hgb (13.7-17.5) g/dL Hct (40.1-51.0) % MCV (79.0-92.2) fL MCH (25.7-32.2) pg MCHC (32.3-36.5) g/dL RDW (11.6-14.4) % Plt Count (163-337) x10^3/uL MPV (9.4-12.4) fL Sodium (135-145) mmol/L Potassium (3.5-5.1) mmol/L Chloride (98-107) mmol/L Carbon Dioxide (22-30) mmol/L Anion Gap (5-15) MEQ/L BUN (9-20) mg/dL Creatinine (0.66-1.25) mg/dL Estimated GFR ML/MIN Glucose (74-106) mg/dL POC Glucometer 101 (74 to 106) mg/dL Calcium (8.4-10.2) mg/dL Iron 38 L (49-181) ug/dL TIBC 196 L (261-497) ug/dL Iron Saturation 19 L (20-39) % Ferritin 444 (17.9-464) ng/mL Total Bilirubin (0.2-1.3) mg/dL AST (17-59) U/L ALT (0-50) U/L Alkaline Phosphatase (38-126) U/L Serum Total Protein (6.3-8.2) g/dL Albumin (3.5-5.0) g/dL Vitamin B12 396 (239-931) pg/mL Folic Acid 2.21 L (2.76 - >20) ng/mL ABO Group Rh Factor Antibody Screen (NEGATIVE) 09/17/24 09/17/24 09/17/24 Range/Units 15:00 16:50 21:45 WBC (4.23-9.07) x10^3/uL RBC (4.63-6.08) x10^6/uL Hgb (13.7-17.5) g/dL Hct (40.1-51.0) % MCV (79.0-92.2) fL MCH (25.7-32.2) pg MCHC (32.3-36.5) g/dL RDW (11.6-14.4) % Plt Count (163-337) x10^3/uL MPV (9.4-12.4) fL Sodium (135-145) mmol/L Potassium (3.5-5.1) mmol/L Chloride (98-107) mmol/L Carbon Dioxide (22-30) mmol/L Anion Gap (5-15) MEQ/L BUN (9-20) mg/dL Creatinine (0.66-1.25) mg/dL Estimated GFR ML/MIN Glucose (74-106) mg/dL POC Glucometer 101 105 (74 to 106) mg/dL Calcium (8.4-10.2) mg/dL Iron (49-181) ug/dL TIBC (261-497) ug/dL Iron Saturation (20-39) % Ferritin (17.9-464) ng/mL Total Bilirubin (0.2-1.3) mg/dL AST (17-59) U/L ALT (0-50) U/L Alkaline Phosphatase (38-126) U/L Serum Total Protein (6.3-8.2) g/dL Albumin (3.5-5.0) g/dL Vitamin B12 (239-931) pg/mL Folic Acid (2.76 - >20) ng/mL ABO Group O Rh Factor POSITIVE Antibody Screen NEGATIVE (NEGATIVE) 09/18/24 09/18/24 Range/Units 05:58 05:58 WBC 6.5 (4.23-9.07) x10^3/uL RBC 3.07 L (4.63-6.08) x10^6/uL Hgb 8.2 L (13.7-17.5) g/dL Hct 26.3 L (40.1-51.0) % MCV 85.7 (79.0-92.2) fL MCH 26.7 (25.7-32.2) pg MCHC 31.2 L (32.3-36.5) g/dL RDW 14.0 (11.6-14.4) % Plt Count 182 (163-337) x10^3/uL MPV 9.2 L (9.4-12.4) fL Sodium 135 (135-145) mmol/L Potassium 3.6 (3.5-5.1) mmol/L Chloride 108 H (98-107) mmol/L Carbon Dioxide 24 (22-30) mmol/L Anion Gap 6.4 (5-15) MEQ/L BUN 9 (9-20) mg/dL Creatinine 0.58 L (0.66-1.25) mg/dL Estimated GFR 101.1 ML/MIN Glucose 111 H (74-106) mg/dL POC Glucometer (74 to 106) mg/dL Calcium 8.0 L (8.4-10.2) mg/dL Iron (49-181) ug/dL TIBC (261-497) ug/dL Iron Saturation (20-39) % Ferritin (17.9-464) ng/mL Total Bilirubin 0.40 (0.2-1.3) mg/dL AST 33 (17-59) U/L ALT 16 (0-50) U/L Alkaline Phosphatase 80 (38-126) U/L Serum Total Protein 5.7 L (6.3-8.2) g/dL Albumin 2.7 L (3.5-5.0) g/dL Vitamin B12 (239-931) pg/mL Folic Acid (2.76 - >20) ng/mL ABO Group Rh Factor Antibody Screen (NEGATIVE) Radiology Exams: Radiology Procedures Category Date Time Status CHEST 1 VIEW (PORTABLE) Stat Exams 09/17/24 11:49 Completed CHEST 1 VIEW (PORTABLE) Stat Exams 09/17/24 14:47 Completed HEART SPECT MULTIPLE [NUCMED] Routine Exams 09/17/24 12:47 Completed Multi-Disciplinary Progress Notes: Multi-Disciplinary Progress Notes 09/17/24 13:50 Case Management Note by Noa Phan PATIENT CONTINUES TO PLAN TO GO TO [facility] FOR REHAB. S/W RAPHAEL AT [facility]- THEY ARE READY FOR PATIENT WHEN HE IS READY FOR DC Initialized on 09/17/24 13:50 - END OF NOTE Assessment/Plan (1) Pressure ulcer of buttock, unstageable Current Visit: Yes Status: Chronic Qualifiers: Laterality: unspecified laterality Qualified Code(s): L89.300 - Pressure ulcer of unspecified buttock, unstageable Code(s): L89.300 - PRESSURE ULCER OF UNSPECIFIED BUTTOCK, UNSTAGEABLE (2) Bacteremia due to Enterococcus Current Visit: Yes Status: Acute Code(s): R78.81 - BACTEREMIA; B95.2 - ENTEROCOCCUS THE CAUSE OF DISEASES CLASSIFIED ELSEWHERE (3) HTN (hypertension) Current Visit: Yes Status: Chronic Qualifiers: Hypertension type: primary hypertension Qualified Code(s): I10 - Essential (primary) hypertension Code(s): I10 - ESSENTIAL (PRIMARY) HYPERTENSION (4) Type II diabetes mellitus Current Visit: Yes Status: Chronic Qualifiers: Diabetes mellitus half-way insulin use: without half-way use Diabetes mellitus complication status: with hyperglycemia Qualified Code(s): E11.65 - Type 2 diabetes mellitus with hyperglycemia (5) Rhabdomyolysis Current Visit: Yes Status: Acute Code(s): M62.82 - RHABDOMYOLYSIS (6) COVID-19 Current Visit: Yes Status: Acute Code(s): U07.1 - COVID-19 (7) Parkinson disease Current Visit: Yes Status: Chronic Qualifiers: Dyskinesia presence: with dyskinesia Fluctuating manifestations: with fluctuating manifestations Qualified Code(s): G20.B2 - Parkinson's disease with dyskinesia, with fluctuations Code(s): G20.A1 - PARKINSON'S DIS W/O DYSKINESIA, W/O MENTION OF FLUCTUATIONS (8) Anemia Current Visit: No Status: Chronic Code(s): D64.9 - ANEMIA, UNSPECIFIED (9) Hyperlipidemia Current Visit: No Status: Chronic Code(s): E78.5 - HYPERLIPIDEMIA, UNSPECIFIED (10) Obesity (BMI 30-39.9) Current Visit: No Status: Chronic Code(s): E66.9 - OBESITY, UNSPECIFIED (11) Carotid artery disease Current Visit: Yes Status: Chronic Assessment & Plan: (1) Pressure ulcer of buttock, unstageable Current Visit: Yes Status: Chronic Qualifiers: Laterality: unspecified laterality Qualified Code(s): L89.300 - Pressure ulcer of unspecified buttock, unstageable Assessment & Plan: - Continue antibiotics and wound care. - wound culture enterococcus faecalis - Colostomy planned on Friday. - Start Golytley today - CBC, CMP reviewed - Tele - Vancomycin IV 09/17 - + diarrhea - no rectal tube available at this facility - CBC, CMP reviewed - Colostomy by GS today if cardiac stress test ok - this will help to aide in wound healing. - stress test recommended per cardiology- completed and low risk per cardiology reading 09/18 - Colostomy surgery today as cardiac clearance not done in time for surgery yesterday - CBC, CMP reviewed - Lovenox held and can be restarted tomorrow per GS - resume IVF Code(s): L89.300 - PRESSURE ULCER OF UNSPECIFIED BUTTOCK, UNSTAGEABLE (2) Bacteremia due to Enterococcus Current Visit: Yes Status: Acute Assessment & Plan: - Source is likely the patient's wound. - No murmur on exam. - Electrocardiogram pending. - NGTD on repeat culture. - On IV Vancomycin. - If ECHO negative for vegetations and if repeat Cx shows NGTD, can consider PICC line placement with a plan for 7 days IV vancomycin 09/16 - Repeat cultures negative 09/17 - Echo results show no vegetation on heart valves - PICC line placement TTE 09/13/[address] Barajas: 1. Normal LV size and function. 2. Mild concentric left ventricular hypertrophy. 3. Left ventricular ejection fraction estimated by 2D at 55-60 percent. 4. Mild to moderate right ventricular dilatation. Normal RV systolic function. 5. Aortic valve is tricuspid with mild sclerosis. 6. There is no significant pericardial effusion. 7. Per my review a. No vegetations b. Normal right atrial pressure. Carotid Doppler 02/12/2022: 1. Status post right carotid endarterectomy without critical stenosis/obstruction. 2. Stable left carotid arteriosclerotic plaquing as detailed. Velocity measurements and ratios remaining negative for hemodynamically significant flow-limiting stenosis. Cardiac catheterization approximately 2019: Per patient's report, no significant CAD. PCI not recommended. Myocardial perfusion scan 01/16/2015: 1. Normal MPS without evidence of a prior infarct or ischemia. 2. Gated images reveal normal wall motion. Calculated LVEF 46% (suspect this was erroneous). - Cardiology note reviewed and agree with plan of care 09/18 - repeat BC x2 negative Code(s): R78.81 - BACTEREMIA; B95.2 - ENTEROCOCCUS THE CAUSE OF DISEASES CLASSIFIED ELSEWHERE (3) HTN (hypertension) Current Visit: Yes Status: Chronic Qualifiers: Hypertension type: primary hypertension Qualified Code(s): I10 - Essential (primary) hypertension Assessment & Plan: - Monitor BP - Continue home meds 09/17 - metoprolol 12.5 started last night by cardiology and recommended to increase to 25mg BID if well tolerated - metoprolol increased to 25mg BID today 09/18 - BP stable Code(s): I10 - ESSENTIAL (PRIMARY) HYPERTENSION (4) Type II diabetes mellitus Current Visit: Yes Status: Chronic Qualifiers: Diabetes mellitus half-way insulin use: without half-way use Diabetes mellitus complication status: with hyperglycemia Qualified Code(s): E11.65 - Type 2 diabetes mellitus with hyperglycemia Assessment & Plan: - Accuchecks AC/HS - ADA diet - SSI - A1c 6.60- controlled (5) Rhabdomyolysis Current Visit: Yes Status: Acute Assessment & Plan: - Continue to trend CPK. - Ck 278- improving - IV fluids Code(s): M62.82 - RHABDOMYOLYSIS (6) COVID-19 Current Visit: Yes Status: Acute Assessment & Plan: - Isolation precautions Code(s): U07.1 - COVID-19 (7) Parkinson disease Current Visit: Yes Status: Chronic Qualifiers: Dyskinesia presence: with dyskinesia Fluctuating manifestations: with fluctuating manifestations Qualified Code(s): G20.B2 - Parkinson's disease with dyskinesia, with fluctuations Assessment & Plan: -continue home meds Code(s): G20.A1 - PARKINSON'S DIS W/O DYSKINESIA, W/O MENTION OF FLUCTUATIONS (8) Anemia Current Visit: No Status: Chronic Assessment & Plan: -Chronic and at baseline -Reviewed cbc -transfuse if < 7 1/3 - Hgb 7.9 - Iron studies- reviewed - IV Iron infusions started as ferrous sulfate has an interaction with his Parkinson medication. - Type and screen Code(s): D64.9 - ANEMIA, UNSPECIFIED (9) Hyperlipidemia Current Visit: No Status: Chronic Assessment & Plan: -continue statin Code(s): E78.5 - HYPERLIPIDEMIA, UNSPECIFIED (10) Obesity (BMI 30-39.9) Current Visit: No Status: Chronic Assessment & Plan: -advised diet and exercise control Code(s): E66.9 - OBESITY, UNSPECIFIED (11) Carotid artery disease Current Visit: Yes Status: Chronic Assessment & Plan: - Per cardiology-S/P right CEA in 2020. He may also have CAD which apparently was refuted on a cardiac cath in 2019 (report not available). No evaluation of coronary arteries since then. No history of angina though this could be hidden with his sedentary state. Code(s): I77.9 - DISORDER OF ARTERIES AND ARTERIOLES, UNSPECIFIED Code(s): I77.9 - DISORDER OF ARTERIES AND ARTERIOLES, UNSPECIFIED (12) Colostomy in place Current Visit: Yes Status: Acute Assessment & Plan: - POD #1 - placed today by general surgery to aide in sacrum wound healing - Colostomy care VTE: Lovenox PPI: Protonix Next of KIN: Callie Talavera, Friend [phone] D/C plan: per surgery recs Code status: Full Code(s): Z93.3 - COLOSTOMY STATUS
[2024-09-18] MEDS: ENTEREG 12 MG PO SCH (11:26)
[2024-09-18] MEDS: MORPHINE SULFATE 4 MG INJ IV PRN (11:51)
[2024-09-18] MEDS: Sodium Chloride 0.9% 1000 ML 1,000 ML IV SCH (17:01)
[2024-09-18] MEDS: ZOCOR 20MG PO SCH (21:15)
[2024-09-18] MEDS: VANCOMYCIN 1.5 GRAM/300 ML BAG 1.5 GM/300 ML PIGGYBACK IV SCH (22:43)
[2024-09-19] MEDS: NORCO 5/325 MG PO PRN (02:11)
[2024-09-19] MEDS ORDERED: Sodium Chloride 0.9% 1000 ML 1,000 ML ONE (04:47)
[2024-09-19 06:12] LABS: Hematocrit 25.2 % (40.1-51.0); Hemoglobin 7.6 g/dL (13.7-17.5); Mean Cell Volume 89.4 fL (79.0-92.2); Mean Corpuscular Hgb Concent. 30.2 g/dL (32.3-36.5); Platelet Count 168 x10^3/uL (163-337); Red Blood Count 2.82 x10^6/uL (4.63-6.08); Red Cell Distribution Width 13.8 % (11.6-14.4); White Blood Count 6.6 x10^3/uL (4.23-9.07)
[2024-09-19 06:31] LABS: ALBUMIN 2.3 g/dL (3.5-5.0); ANION GAP 8.5 MEQ/L (5-15); BILIRUBIN,TOTAL 0.4 mg/dL (0.2-1.3); Creatinine 1 0.63 mg/dL (0.66-1.25); EST GLOMERULAR FILTRATION RATE 98.6 ML/MIN; Potassium 3.5 mmol/L (3.5-5.1); Total Protein 4.8 g/dL (6.3-8.2)
--- NOTE | 2024-09-19 09:59 | PCM.NOTE ---
Date and Time: 09/19/24 0950 Subjective Assessment: 09/16/24 Pt resting in bed. He is starting Golytely prep today as he is having an ostomy placed by general surgery tomorrow. This is being done to aide in wound healing. CK improved- continue IV fluids. Continue IV antibiotics for sacral wound. Keep in isolation for COVID. Echo results pending. Corrected calcium 8.4. Pt denies CP, SOB, Abd. pain, N/V/D. 09/17/24 Pt resting in bed. BLLE edema today and elevated with pillows to decrease edema. Per cardiology pt needs to have a nuclear med cardiac stress today he is scheduled to have this this morning. Pending the results of this he will have and ostomy placed by surgery. Echo EF 55-60% and did not show any vegetation. Cardiology consult recommended by admin LAWSON -Ritu and nursing case management yesterday. This was not a request by general surgery. Per cardiology note pt case will be discussed with GS by cardiology. Pt has diarrhea today and we do not supply rectal tubes at this facility per nursing unit clerk. Pt denies CP, SOB, abd. pain, N/V/D. 09/18/24 Pt resting in bed post op surgery for colostomy today. He was to have surgery yesterday but was not cleared in time for procedure by cardiology and surgery decided to wait another day. PICC line place yesterday as pt will need OP antibiotics. Plan at d/c will be for pt to go to rehab and pt is amenable. Continue IV fluids, antibiotics. Per GS restart Lovenox tomorrow. Pt denies any further concerns at this time. 09/19/24 Pt resting in bed. Per nursing colostomy bag had to be burped several times last night but no BM yet. DESTIN drain also in place. Plan is for pt to d/c to [facility] when OK with surgery. Continue Vancomycin for sacral wound. Continue IV iron infusions for iron def anemia. This will need to be set up OP at d/c. He has some slight abd. pt he reports. He denies CP, SOB, N/V/D. - Review of Systems Constitutional: No Fever, No Chills Eyes: No Symptoms Ears, Nose, & Throat: No Symptoms Respiratory: No Cough, No Short Of Breath Cardiac: Edema (BLLE- elevated on pillows), No Chest Pain, No Syncope Abdominal/Gastrointestinal: Abdominal Pain, No Nausea, No Vomiting, No Diarrhea Genitourinary Symptoms: No Dysuria Musculoskeletal: No Back Pain, No Neck Pain Skin: No Rash Neurological: No Dizziness, No Focal Weakness, No Sensory Changes Psychological: No Symptoms Endocrine: No Symptoms Hematologic/Lymphatic: No Symptoms Immunological/Allergic: No Symptoms Objective Exam General Appearance: no apparent distress, alert, obese Neurologic Exam: alert, oriented x 3, cooperative, normal mood/affect, nml cerebellar function, sensation nml, No motor deficits Skin Exam: normal color, warm, dry Wound Assessment: Skin/Wound Assessment Wound/Incision Assessment Start: 09/11/24 20:04 Text: Status: Active Freq: Q6H Protocol: Document 09/19/24 08:00 RB (Rec: 09/19/24 09:43 RB [id number]) Wound/Incision Assessment Intergluteal Cleft Wound Assessment Shift Assessment Wound Type Pressure Ulcer Wound Stage Unstageable Dressing Status Dry & Intact Primary Dressing Absorbant Pad Comment drsgeni cdi at this time, this rn to change this am Wound Photo Photo Taken No Eye Exam: PERRL, EOMI, eyes nml inspection Ears, Nose, Throat Exam: normal ENT inspection, pharynx normal, moist mucous membranes Neck Exam: normal inspection, non-tender, supple, full range of motion Respiratory Exam: normal breath sounds, lungs clear, No respiratory distress Cardiovascular Exam: regular rate/rhythm, normal heart sounds, edema (BLLE) Gastrointestinal/Abdomen Exam: soft, tenderness, No mass Extremity Exam: normal inspection, normal range of motion Back Exam: normal inspection, normal range of motion, No CVA tenderness, No vertebral tenderness Male Genitalia Exam: deferred Rectal Exam: deferred Objective Data Vital Signs: Vital Signs - 24 hr Temp Pulse Resp BP Pulse Ox 09/19/24 08:00 97.9 F 67 16 141/58 95 09/19/24 04:00 98.1 F 55 L 18 113/54 96 09/19/24 00:00 98.0 F 59 L 16 116/47 94 L 09/18/24 20:00 15 09/18/24 19:57 98.0 F 57 L 15 124/56 94 L 09/18/24 16:03 98.2 F 65 21 124/60 98 09/18/24 13:45 98.2 F 64 17 131/64 96 09/18/24 12:35 98.3 F 72 10 L 142/69 94 L 09/18/24 11:45 98 F 77 13 137/64 96 09/18/24 11:12 98 F 82 18 145/62 94 L 09/18/24 10:42 97.8 F 73 16 129/65 95 09/18/24 10:27 97.5 F 77 16 131/60 93 L Pain Assessment - Last Documented Pain Intensity 0 Pain Scale Used 0-10 Pain Scale Intake and Output: Intake & Output 09/16/24 09/17/24 09/18/24 09/19/24 11:59 11:59 11:59 11:59 Intake Total 3991 1750 20 4385 Output Total 3900 1950 2350 1420 Balance 91 -200 -2330 2965 Weight 116.5 kg 118.1 kg Lab Results: Lab Results-Last 24 Hours 09/18/24 09/18/24 09/18/24 Range/Units 11:47 16:09 20:44 WBC (4.23-9.07) x10^3/uL RBC (4.63-6.08) x10^6/uL Hgb (13.7-17.5) g/dL Hct (40.1-51.0) % MCV (79.0-92.2) fL MCH (25.7-32.2) pg MCHC (32.3-36.5) g/dL RDW (11.6-14.4) % Plt Count (163-337) x10^3/uL MPV (9.4-12.4) fL Sodium (135-145) mmol/L Potassium (3.5-5.1) mmol/L Chloride (98-107) mmol/L Carbon Dioxide (22-30) mmol/L Anion Gap (5-15) MEQ/L BUN (9-20) mg/dL Creatinine (0.66-1.25) mg/dL Estimated GFR ML/MIN Glucose (74-106) mg/dL POC Glucometer 138 H 104 103 (74 to 106) mg/dL Calcium (8.4-10.2) mg/dL Total Bilirubin (0.2-1.3) mg/dL AST (17-59) U/L ALT (0-50) U/L Alkaline Phosphatase (38-126) U/L Serum Total Protein (6.3-8.2) g/dL Albumin (3.5-5.0) g/dL 09/19/24 09/19/24 09/19/24 Range/Units 06:06 06:06 08:16 WBC 6.6 (4.23-9.07) x10^3/uL RBC 2.82 L (4.63-6.08) x10^6/uL Hgb 7.6 L (13.7-17.5) g/dL Hct 25.2 L (40.1-51.0) % MCV 89.4 (79.0-92.2) fL MCH 27.0 (25.7-32.2) pg MCHC 30.2 L (32.3-36.5) g/dL RDW 13.8 (11.6-14.4) % Plt Count 168 (163-337) x10^3/uL MPV 9.0 L (9.4-12.4) fL Sodium 135 (135-145) mmol/L Potassium 3.5 (3.5-5.1) mmol/L Chloride 109 H (98-107) mmol/L Carbon Dioxide 21 L (22-30) mmol/L Anion Gap 8.5 (5-15) MEQ/L BUN 9 (9-20) mg/dL Creatinine 0.63 L (0.66-1.25) mg/dL Estimated GFR 98.6 ML/MIN Glucose 108 H (74-106) mg/dL POC Glucometer 115 H (74 to 106) mg/dL Calcium 8.0 L (8.4-10.2) mg/dL Total Bilirubin 0.40 (0.2-1.3) mg/dL AST 24 (17-59) U/L ALT 15 (0-50) U/L Alkaline Phosphatase 73 (38-126) U/L Serum Total Protein 4.8 L (6.3-8.2) g/dL Albumin 2.3 L (3.5-5.0) g/dL Radiology Exams: Radiology Procedures Category Date Time Status CHEST 1 VIEW (PORTABLE) Stat Exams 09/17/24 11:49 Completed CHEST 1 VIEW (PORTABLE) Stat Exams 09/17/24 14:47 Completed HEART SPECT MULTIPLE [NUCMED] Routine Exams 09/17/24 12:47 Completed Multi-Disciplinary Progress Notes: Multi-Disciplinary Progress Notes 09/19/24 06:59 Respiratory Note by Sabrina Ha PT INSTRUCTED FOR SELF CARE WITH INCENTIVE Initialized on 09/19/24 06:59 - END OF NOTE 09/18/24 11:44 Respiratory Note by Sabrina Ha PT EDUCATED ON THE IMPORTANCE OF DEEP BREATHING IN THE PREVENTION OF PNEUMONIA Initialized on 09/18/24 11:44 - END OF NOTE Assessment/Plan (1) Pressure ulcer of buttock, unstageable Current Visit: Yes Status: Chronic Qualifiers: Laterality: unspecified laterality Qualified Code(s): L89.300 - Pressure ulcer of unspecified buttock, unstageable Code(s): L89.300 - PRESSURE ULCER OF UNSPECIFIED BUTTOCK, UNSTAGEABLE (2) Bacteremia due to Enterococcus Current Visit: Yes Status: Acute Code(s): R78.81 - BACTEREMIA; B95.2 - ENTEROCOCCUS THE CAUSE OF DISEASES CLASSIFIED ELSEWHERE (3) HTN (hypertension) Current Visit: Yes Status: Chronic Qualifiers: Hypertension type: primary hypertension Qualified Code(s): I10 - Essential (primary) hypertension Code(s): I10 - ESSENTIAL (PRIMARY) HYPERTENSION (4) Type II diabetes mellitus Current Visit: Yes Status: Chronic Qualifiers: Diabetes mellitus care home insulin use: without intermediate manager use Diabetes mellitus complication status: with hyperglycemia Qualified Code(s): E11.65 - Type 2 diabetes mellitus with hyperglycemia (5) Rhabdomyolysis Current Visit: Yes Status: Acute Code(s): M62.82 - RHABDOMYOLYSIS (6) COVID-19 Current Visit: Yes Status: Acute Code(s): U07.1 - COVID-19 (7) Parkinson disease Current Visit: Yes Status: Chronic Qualifiers: Dyskinesia presence: with dyskinesia Fluctuating manifestations: with fluctuating manifestations Qualified Code(s): G20.B2 - Parkinson's disease with dyskinesia, with fluctuations Code(s): G20.A1 - PARKINSON'S DIS W/O DYSKINESIA, W/O MENTION OF FLUCTUATIONS (8) Anemia Current Visit: No Status: Chronic Code(s): D64.9 - ANEMIA, UNSPECIFIED (9) Hyperlipidemia Current Visit: No Status: Chronic Code(s): E78.5 - HYPERLIPIDEMIA, UNSPECIFIED (10) Obesity (BMI 30-39.9) Current Visit: No Status: Chronic Code(s): E66.9 - OBESITY, UNSPECIFIED (11) Carotid artery disease Current Visit: Yes Status: Chronic Code(s): I77.9 - DISORDER OF ARTERIES AND ARTERIOLES, UNSPECIFIED (12) Colostomy in place Current Visit: Yes Status: Acute Assessment & Plan: (1) Pressure ulcer of buttock, unstageable Current Visit: Yes Status: Chronic Qualifiers: Laterality: unspecified laterality Qualified Code(s): L89.300 - Pressure ulcer of unspecified buttock, unstageable Assessment & Plan: - Continue antibiotics and wound care. - wound culture enterococcus faecalis - Colostomy planned on Friday. - Start Golytley today - CBC, CMP reviewed - Tele - Vancomycin IV 09/17 - + diarrhea - no rectal tube available at this facility - CBC, CMP reviewed - Colostomy by GS today if cardiac stress test ok - this will help to aide in wound healing. - stress test recommended per cardiology- completed and low risk per cardiology reading 09/18 - Colostomy surgery today as cardiac clearance not done in time for surgery yesterday - CBC, CMP reviewed - Lovenox held and can be restarted tomorrow per GS - resume NS IVF per surgery 09/19 - CBC, CMP reviewed - resume lovenox per today Code(s): L89.300 - PRESSURE ULCER OF UNSPECIFIED BUTTOCK, UNSTAGEABLE (2) Bacteremia due to Enterococcus Current Visit: Yes Status: Acute Assessment & Plan: - Source is likely the patient's wound. - No murmur on exam. - Electrocardiogram pending. - NGTD on repeat culture. - On IV Vancomycin. - If ECHO negative for vegetations and if repeat Cx shows NGTD, can consider PICC line placement with a plan for 7 days IV vancomycin / - Repeat cultures negative 09/17 - Echo results show no vegetation on heart valves - PICC line placement TTE 09/13/[address] Barajas: 1. Normal LV size and function. 2. Mild concentric left ventricular hypertrophy. 3. Left ventricular ejection fraction estimated by 2D at 55-60 percent. 4. Mild to moderate right ventricular dilatation. Normal RV systolic function. 5. Aortic valve is tricuspid with mild sclerosis. 6. There is no significant pericardial effusion. 7. Per my review a. No vegetations b. Normal right atrial pressure. Carotid Doppler 02/12/2022: 1. Status post right carotid endarterectomy without critical stenosis/obstruction. 2. Stable left carotid arteriosclerotic plaquing as detailed. Velocity measurements and ratios remaining negative for hemodynamically significant flow-limiting stenosis. Cardiac catheterization approximately 2019: Per patient's report, no significant CAD. PCI not recommended. Myocardial perfusion scan 01/16/2015: 1. Normal MPS without evidence of a prior infarct or ischemia. 2. Gated images reveal normal wall motion. Calculated LVEF 46% (suspect this was erroneous). - Cardiology note reviewed and agree with plan of care 09/18 - repeat BC x2 negative Code(s): R78.81 - BACTEREMIA; B95.2 - ENTEROCOCCUS THE CAUSE OF DISEASES CLASSIFIED ELSEWHERE (3) HTN (hypertension) Current Visit: Yes Status: Chronic Qualifiers: Hypertension type: primary hypertension Qualified Code(s): I10 - Essential (primary) hypertension Assessment & Plan: - Monitor BP - Continue home meds 09/17 - metoprolol 12.5 started last night by cardiology and recommended to increase to 25mg BID if well tolerated - metoprolol increased to 25mg BID today 09/18 - BP stable Code(s): I10 - ESSENTIAL (PRIMARY) HYPERTENSION (4) Type II diabetes mellitus Current Visit: Yes Status: Chronic Qualifiers: Diabetes mellitus care home insulin use: without care home use Diabetes mellitus complication status: with hyperglycemia Qualified Code(s): E11.65 - Type 2 diabetes mellitus with hyperglycemia Assessment & Plan: - Accuchecks AC/HS - ADA diet - SSI - A1c 6.60- controlled (5) Rhabdomyolysis Current Visit: Yes Status: Acute Assessment & Plan: - Continue to trend CPK. - Ck 278- improving - IV fluids Code(s): M62.82 - RHABDOMYOLYSIS (6) COVID-19 Current Visit: Yes Status: Acute Assessment & Plan: - Isolation precautions Code(s): U07.1 - COVID-19 (7) Parkinson disease Current Visit: Yes Status: Chronic Qualifiers: Dyskinesia presence: with dyskinesia Fluctuating manifestations: with fluctuating manifestations Qualified Code(s): G20.B2 - Parkinson's disease with dyskinesia, with fluctuations Assessment & Plan: -continue home meds Code(s): G20.A1 - PARKINSON'S DIS W/O DYSKINESIA, W/O MENTION OF FLUCTUATIONS (8) Anemia Current Visit: No Status: Chronic Assessment & Plan: -Chronic and at baseline -Reviewed cbc -transfuse if < 7 1/3 - Hgb 7.9 - Iron studies- reviewed - IV Iron infusions started as ferrous sulfate has an interaction with his Parkinson medication. - Type and screen 1/5 - Hgb8.2 - Continue IV infusions- will need set up for OP at D/C Code(s): D64.9 - ANEMIA, UNSPECIFIED (9) Hyperlipidemia Current Visit: No Status: Chronic Assessment & Plan: -continue statin Code(s): E78.5 - HYPERLIPIDEMIA, UNSPECIFIED (10) Obesity (BMI 30-39.9) Current Visit: No Status: Chronic Assessment & Plan: -advised diet and exercise control Code(s): E66.9 - OBESITY, UNSPECIFIED (11) Carotid artery disease Current Visit: Yes Status: Chronic Assessment & Plan: - Per cardiology-S/P right CEA in 2020. He may also have CAD which apparently was refuted on a cardiac cath in 2019 (report not available). No evaluation of coronary arteries since then. No history of angina though this could be hidden with his sedentary state. Code(s): I77.9 - DISORDER OF ARTERIES AND ARTERIOLES, UNSPECIFIED Code(s): I77.9 - DISORDER OF ARTERIES AND ARTERIOLES, UNSPECIFIED (12) Colostomy in place Current Visit: Yes Status: Acute Assessment & Plan: - POD #1 - placed today by general surgery to aide in sacrum wound healing - Colostomy care - + DESTIN in place - daily dressing changes 1/5 - POD #2 - No BM yet VTE: Lovenox PPI: Protonix Next of KIN: Callie Talavera, Friend [phone] D/C plan: per surgery recs Code status: Full Code(s): Z93.3 - COLOSTOMY STATUS Additional CC's: Code(s): Z93.3 - COLOSTOMY STATUS
--- NOTE | 2024-09-19 20:23 | OP ---
SURGERY DATE/TIME: 09/18/2024 PREOPERATIVE DIAGNOSES: 1) Persistent pressure sore. The patient's request and desire for diverting ostomy to quicken pace of healing secondary to frequent soilage. 2) Multiple medical problems and debilitation. POSTOPERATIVE DIAGNOSES: 1) Persistent pressure sore. The patient's request and desire for diverting ostomy to quicken pace of healing secondary to frequent soilage. 2) Multiple medical problems and debilitation. PROCEDURE: Laparoscopic-assisted diverting end sigmoid colostomy. SURGEON: Truman Reese MD ANESTHESIA: General. ESTIMATED BLOOD LOSS: Minimal. INDICATIONS: Consent was obtained. DESCRIPTION OF PROCEDURE AND FINDINGS: The patient was taken to the operating room. General anesthesia was induced. The patient was prepped and draped in the usual sterile fashion. After official time-out, no disagreement in planned procedure. A transverse incision made at the supraumbilical area. Fascia grasped and pulled upward. Veress needle inserted. Tested with saline. Pneumoperitoneum accomplished insufflating from an opening pressure of 0-15. A 5 mm bladeless port and camera inserted without difficulty, followed by left upper quadrant 5 mm port , left lower quadrant 5 mm port, a right lower quadrant 5 mm port that was later switched to a 12 mm port. There was no superficial evidence of any untoward anatomy visible laparoscopically. At this point, white line of Toldt was incised with the hook cautery laterally allowing the sigmoid and rectosigmoid to be mobilized medially. Once this was done, using the Sarah graspers, carefully created a window in the more distal sigmoid directly on the bowel margin and then stapled with the Endo RAMESH stapler through the 12 port to the right lower quadrant site. The second reload to the tiny little wisp of residual colon. Once this was accomplished, the mesentery was taken down in the midline and ligated with the aid of the LigaSure device, staying well away from the retroperitoneum. It was a nice, loose segment of colon and was easily reachable to the anterior abdominal wall. At this point, in an area in the left lower quadrant, a half-dollar size skin excision was made. Dissection carried down through the large amount of adipose tissue, finally reaching the fascia. This was carefully incised with a cruciate incision. The rectus muscle in that area where the perforators were was sealed with the vessel sealer. Cruciate incision made in the posterior rectus sheath, and the divided end segment of the colon was carefully pulled up, nice tension-free. An additional suture was placed at the level of the fascia of 0 Vicryl, making sure the fascial opening was not too large and felt to be just the right 2 to 2-1/2 fingerbreadths. The DESTIN drain was placed in the lower abdomen. Good hemostasis had been noted on the distal rectosigmoid stump closure site. The 12 fascial defect where the stapler had been placed through was closed with puncture closure device with #1 Vicryl. At this point, I went back to maturing the ostomy with interrupted 3-0 Vicryl and secured a nice, tension-free viable segment of the colon. The end piece was shortened a little bit to make the nippled portion the right length. It was then carefully matured in a nippled fashion with interrupted 4-0 and 3-0 Vicryl. Nice, tension-free viable anastomosis. The pneumoperitoneum had been decompressed and the ports removed. The other port incisions were secured with the stapler. The drain had been secured previously and placed to bulb suction. There was no family here to discuss findings with.
--- NOTE | 2024-09-20 05:19 | PCM.NOTE ---
Date and Time: 09/20/24 0514 Subjective Assessment: is a 78 year old male with pmhx of Parkinson's disease, sacral decubiti, Diabetes type 2, HTN, HLD admitted 09/11/24 after a fall. He was down on the floor for 14-24 hours. He did not suffer any injuries. Previous hospitalization 07/21/24- 08/02/24 and 08/14/24-08/15/24 with decubiti positive for pseudomonas. He was treated with Merem for 10 days and entered a rehab hospital. He checked himself out of rehab and went home but was unable to care for himself. He had fever in ER and additional complaints of a cough and dyspnea. He has had mild diarrhea. General surgery consulted with debridement perfomred 09/13/24. During hospital course wound culture grew enterococcus faecalis and received cefoxitin and vancomycin initially but now cefoxitin discontinued with final culture results. Patient has also opted for colostomy to aid in healing of his wound with surgical intervention on 09/18/24. PICC placed and plan for OP abx at rehab facility. 09/20/24: Met with patient bedside. No complaints this morning. He is PODS#2 from colostomy placement. DESTIN drain intact with minimal drainage. He is tolerating a soft diet. +flatulence, no stool in bag yet. Surgery following. Plan to d/c to SNF once surgery clears patient and continue vancomycin at SNF. Potassium low this morning and will replenish per protocol. Denies fever,cough, sob, cp, abdominal pain, [place], dizziness, N/V/D. - Review of Systems Constitutional: No Symptoms Eyes: No Symptoms Ears, Nose, & Throat: No Symptoms Respiratory: No Symptoms Cardiac: No Symptoms Abdominal/Gastrointestinal: Other (colostomy - no stool in bag) Genitourinary Symptoms: No Symptoms Musculoskeletal: No Symptoms Skin: Decubiti Neurological: No Symptoms Psychological: No Symptoms Endocrine: No Symptoms Hematologic/Lymphatic: No Symptoms Immunological/Allergic: No Symptoms Objective Exam General Appearance: no apparent distress Neurologic Exam: alert, oriented x 3, cooperative Skin Exam: normal color Wound Assessment: Skin/Wound Assessment Wound/Incision Assessment Start: 09/11/24 20:04 Text: Status: Active Freq: Q6H Protocol: Document 09/20/24 02:00 ADRURY (Rec: 09/20/24 02:14 ADRURY [id number]) Wound/Incision Assessment Intergluteal Cleft Wound Assessment Shift Assessment Wound Type Pressure Ulcer Wound Stage Unstageable Dressing Status Dry & Intact Packing Type Gauze Roll Primary Dressing Absorbant Pad Secondary Dressing 4X4 Wound Photo Photo Taken No Eye Exam: PERRL Ears, Nose, Throat Exam: normal ENT inspection Neck Exam: normal inspection Respiratory Exam: normal breath sounds, lungs clear Cardiovascular Exam: regular rate/rhythm, normal heart sounds Gastrointestinal/Abdomen Exam: other (Hypoactive BS x 4 quads 4 puncture sites - covered colostomy with no stool in bag) Extremity Exam: swelling (BLE) Back Exam: normal inspection Male Genitalia Exam: deferred Rectal Exam: deferred Objective Data Vital Signs: Vital Signs - 24 hr Temp Pulse Resp BP Pulse Ox 09/20/24 04:00 17 09/20/24 03:00 97.8 F 61 17 126/59 95 09/20/24 00:00 18 09/19/24 23:24 98.1 F 62 18 113/55 94 L 09/19/24 20:00 18 09/19/24 19:42 97.9 F 67 17 113/57 94 L 09/19/24 16:00 97.8 F 73 16 162/71 96 09/19/24 12:00 16 09/19/24 11:47 97.6 F 76 16 146/76 99 09/19/24 08:00 97.9 F 67 16 141/58 95 Pain Assessment - Last Documented Pain Intensity 6 Pain Scale Used 0-10 Pain Scale Intake and Output: Intake & Output 09/17/24 09/18/24 09/19/24 09/20/24 11:59 11:59 11:59 11:59 Intake Total 1750 20 4865 4301 Output Total 1950 2350 1420 1305 Balance -200 -2330 3445 2996 Weight 116.5 kg 118.1 kg Lab Results: Lab Results-Last 24 Hours 09/19/24 09/19/24 09/19/24 Range/Units 06:06 06:06 08:16 WBC 6.6 (4.23-9.07) x10^3/uL RBC 2.82 L (4.63-6.08) x10^6/uL Hgb 7.6 L (13.7-17.5) g/dL Hct 25.2 L (40.1-51.0) % MCV 89.4 (79.0-92.2) fL MCH 27.0 (25.7-32.2) pg MCHC 30.2 L (32.3-36.5) g/dL RDW 13.8 (11.6-14.4) % Plt Count 168 (163-337) x10^3/uL MPV 9.0 L (9.4-12.4) fL Sodium 135 (135-145) mmol/L Potassium 3.5 (3.5-5.1) mmol/L Chloride 109 H (98-107) mmol/L Carbon Dioxide 21 L (22-30) mmol/L Anion Gap 8.5 (5-15) MEQ/L BUN 9 (9-20) mg/dL Creatinine 0.63 L (0.66-1.25) mg/dL Estimated GFR 98.6 ML/MIN Glucose 108 H (74-106) mg/dL POC Glucometer 115 H (74 to 106) mg/dL Calcium 8.0 L (8.4-10.2) mg/dL Total Bilirubin 0.40 (0.2-1.3) mg/dL AST 24 (17-59) U/L ALT 15 (0-50) U/L Alkaline Phosphatase 73 (38-126) U/L Serum Total Protein 4.8 L (6.3-8.2) g/dL Albumin 2.3 L (3.5-5.0) g/dL 09/19/24 09/19/24 09/19/24 Range/Units 11:20 16:30 21:00 WBC (4.23-9.07) x10^3/uL RBC (4.63-6.08) x10^6/uL Hgb (13.7-17.5) g/dL Hct (40.1-51.0) % MCV (79.0-92.2) fL MCH (25.7-32.2) pg MCHC (32.3-36.5) g/dL RDW (11.6-14.4) % Plt Count (163-337) x10^3/uL MPV (9.4-12.4) fL Sodium (135-145) mmol/L Potassium (3.5-5.1) mmol/L Chloride (98-107) mmol/L Carbon Dioxide (22-30) mmol/L Anion Gap (5-15) MEQ/L BUN (9-20) mg/dL Creatinine (0.66-1.25) mg/dL Estimated GFR ML/MIN Glucose (74-106) mg/dL POC Glucometer 99 92 135 H (74 to 106) mg/dL Calcium (8.4-10.2) mg/dL Total Bilirubin (0.2-1.3) mg/dL AST (17-59) U/L ALT (0-50) U/L Alkaline Phosphatase (38-126) U/L Serum Total Protein (6.3-8.2) g/dL Albumin (3.5-5.0) g/dL Multi-Disciplinary Progress Notes: Multi-Disciplinary Progress Notes 09/19/24 06:59 Respiratory Note by Sabrina Ha PT INSTRUCTED FOR SELF CARE WITH INCENTIVE Initialized on 09/19/24 06:59 - END OF NOTE Assessment/Plan (1) Pressure ulcer of buttock, unstageable Current Visit: Yes Status: Chronic Qualifiers: Laterality: unspecified laterality Qualified Code(s): L89.300 - Pressure ul cer of unspecified buttock, unstageable Assessment & Plan: -s/p debridement 09/13/24 with gen surgery - following - Continue antibiotics and wound care. - wound culture enterococcus faecalis - Colostomy placed 09/18/24 - CBC, CMP reviewed - WBC WNL at 7.3 - Tele - Vancomycin IV/cefoxitin- changed to Vancomycin only Code(s): L89.300 - PRESSURE ULCER OF UNSPECIFIED BUTTOCK, UNSTAGEABLE (2) Hypokalemia Current Visit: Yes Status: Acute Assessment & Plan: -Potassium reviewed at 3.3 - will replenish per protocol -monitor renal/lytes daily -tele Code(s): E87.6 - HYPOKALEMIA (3) Bacteremia due to Enterococcus Current Visit: Yes Status: Acute Assessment & Plan: - Source is likely the patient's wound -Initial treament with cefoxitin and vanc - now on vanc only with final culture result - No murmur on exam. - Echo results show no vegetation on heart valves - PICC line placement TTE 09/13/[address] Barajas: 1. Normal LV size and function. 2. Mild concentric left ventricular hypertrophy. 3. Left ventricular ejection fraction estimated by 2D at 55-60 percent. 4. Mild to moderate right ventricular dilatation. Normal RV systolic function. 5. Aortic valve is tricuspid with mild sclerosis. 6. There is no significant pericardial effusion. 7. Per my review a. No vegetations b. Normal right atrial pressure. Carotid Doppler 02/12/2022: 1. Status post right carotid endarterectomy without critical stenosis/obstruction. 2. Stable left carotid arteriosclerotic plaquing as detailed. Velocity measurements and ratios remaining negative for hemodynamically significant flow-limiting stenosis. Cardiac catheterization approximately 2019: Per patient's report, no significant CAD. PCI not recommended. Myocardial perfusion scan 01/16/2015: 1. Normal MPS without evidence of a prior infarct or ischemia. 2. Gated images reveal normal wall motion. Calculated LVEF 46% (suspect this was erroneous). - repeat BC x2 negative Code(s): R78.81 - BACTEREMIA; B95.2 - ENTEROCOCCUS THE CAUSE OF DISEASES CLASSIFIED ELSEWHERE (4) COVID-19 Current Visit: Yes Status: Acute Assessment & Plan: - Isolation precautions Code(s): U07.1 - COVID-19 (5) Rhabdomyolysis Current Visit: Yes Status: Acute Assessment & Plan: - Continue to trend CPK - currently pending - IV fluids Code(s): M62.82 - RHABDOMYOLYSIS (6) HTN (hypertension) Current Visit: Yes Status: Chronic Qualifiers: Hypertension type: primary hypertension Qualified Code(s): I10 - Essential (primary) hypertension Assessment & Plan: - Continue home meds - metoprolol increased to 25mg BID 09/17/24 - BP stable Code(s): I10 - ESSENTIAL (PRIMARY) HYPERTENSION (7) Parkinson disease Current Visit: Yes Status: Chronic Qualifiers: Dyskinesia presence: with dyskinesia Fluctuating manifestations: with fluctuating manifestations Qualified Code(s): G20.B2 - Parkinson's disease with dyskinesia, with fluctuations Assessment & Plan: -continue home meds Code(s): G20.A1 - PARKINSON'S DIS W/O DYSKINESIA, W/O MENTION OF FLUCTUATIONS (8) Type II diabetes mellitus Current Visit: Yes Status: Chronic Qualifiers: Diabetes mellitus intermediate card tender insulin use: without prison use Diabetes mellitus complication status: with hyperglycemia Qualified Code(s): E11.65 - Type 2 diabetes mellitus with hyperglycemia Assessment & Plan: - Accuchecks AC/HS - ADA diet - SSI - A1c 6.60- (9) Anemia Current Visit: No Status: Chronic Assessment & Plan: -Chronic and at baseline -Reviewed cbc - hgb at 7.6 today -transfuse if < 7 - IV Iron infusions started as ferrous sulfate has an interaction with his Parkinson medication. Code(s): D64.9 - ANEMIA, UNSPECIFIED (10) Hyperlipidemia Current Visit: No Status: Chronic Assessment & Plan: -continue statin Code(s): E78.5 - HYPERLIPIDEMIA, UNSPECIFIED (11) Obesity (BMI 30-39.9) Current Visit: No Status: Chronic Assessment & Plan: -advised diet and exercise control Code(s): E66.9 - OBESITY, UNSPECIFIED (12) CAD (coronary artery disease) Current Visit: Yes Status: Acute Assessment & Plan: - Per cardiology-S/P right CEA in 2020. He may also have CAD which apparently was refuted on a cardiac cath in 2018 (report not available). No evaluation of coronary arteries since then. No history of angina though this could be hidden with his sedentary state. Code(s): I25.10 - ATHSCL HEART DISEASE OF [place] CORONARY ARTERY W/O ANG PCTRS (13) Colostomy in place Current Visit: Yes Status: Acute Assessment & Plan: - POD #2 - placed 09/18/24 by general surgery to aide in sacrum wound healing - Colostomy care VTE: Lovenox PPI: Protonix Next of KIN: Callie Talavera, Friend [phone] D/C plan: per surgery recs Code status: Full Code(s): Z93.3 - COLOSTOMY STATUS
[2024-09-20 05:25] LABS: Hematocrit 23.7 % (40.1-51.0); Hemoglobin 7.6 g/dL (13.7-17.5); Mean Cell Volume 85.3 fL (79.0-92.2); Mean Corpuscular Hemoglobin 27.3 pg (25.7-32.2); Mean Corpuscular Hgb Concent. 32.1 g/dL (32.3-36.5); Mean Platelet Volume 9.5 fL (9.4-12.4); Platelet Count 189 x10^3/uL (163-337); Red Blood Count 2.78 x10^6/uL (4.63-6.08); Red Cell Distribution Width 14.1 % (11.6-14.4); White Blood Count 7.3 x10^3/uL (4.23-9.07)
[2024-09-20 05:43] LABS: ALBUMIN 2.5 g/dL (3.5-5.0); BILIRUBIN,TOTAL 0.4 mg/dL (0.2-1.3); Calcium 7.8 mg/dL (8.4-10.2); Creatinine 1 0.67 mg/dL (0.66-1.25); EST GLOMERULAR FILTRATION RATE 96.8 ML/MIN; Potassium 3.3 mmol/L (3.5-5.1); Total Protein 5.4 g/dL (6.3-8.2)
[2024-09-20] MEDS: Klor Con PO SCH (09:08)
[2024-09-20] MEDS ORDERED: Klor Con ONE (16:16)
[2024-09-20] MEDS: TROUGH DRUG LEVELS IJ ONE (19:48)
[2024-09-21 04:29] LABS: Red Cell Distribution Width 14.3 % (11.6-14.4)
[2024-09-21 04:33] LABS: ALBUMIN 2.4 g/dL (3.5-5.0); ANION GAP 5.3 MEQ/L (5-15); BILIRUBIN,TOTAL 0.3 mg/dL (0.2-1.3); Calcium 7.6 mg/dL (8.4-10.2); Creatinine 1 0.63 mg/dL (0.66-1.25); EST GLOMERULAR FILTRATION RATE 98.6 ML/MIN; MAGNESIUM 1.4 mg/dL (1.6-2.3); Potassium 3.8 mmol/L (3.5-5.1); Total Protein 5.2 g/dL (6.3-8.2)
[2024-09-21 04:51] LABS: Red Blood Count 2.61 x10^6/uL (4.63-6.08); White Blood Count 5.8 x10^3/uL (4.23-9.07)
[2024-09-21 04:52] LABS: Hematocrit 22.4 % (40.1-51.0); Hemoglobin 7.2 g/dL (13.7-17.5); Mean Cell Volume 85.8 fL (79.0-92.2)
[2024-09-21 04:53] LABS: Mean Corpuscular Hemoglobin 27.6 pg (25.7-32.2); Mean Corpuscular Hgb Concent. 32.1 g/dL (32.3-36.5); Platelet Count 157 x10^3/uL (163-337)
[2024-09-21 04:54] LABS: Lymphocytes % 39.2 % (21.8-53.1); Mean Platelet Volume 9.1 fL (9.4-12.4); Monocytes % 8.4 % (5.3-12.2); Neutrophil % 46.2 % (34.0-67.9)
[2024-09-21 04:55] LABS: Absolute Neutrophil Ct (ANC) 2.68 x10^3/uL (1.78-5.38); BASOPHIL % 0.3 % (0.2-1.2); Eosinophil % 5.2 % (0.8-7.0); IMMATURE GRAN % 0.7 % (0.001-0.429)
[2024-09-21 04:56] LABS: Basophil (Absolute #) 0.02 x10^3/uL (0.01-0.08); Lymphocyte (Absolute #) 2.28 x10^3/uL (1.32-3.57); Monocyte (Absolute #) 0.49 x10^3/uL (0.30-0.82)
[2024-09-21 04:57] LABS: IMMATURE GRAN # 0.04 x10^3u/L (0.001-0.031)
--- NOTE | 2024-09-21 05:36 | PCM.NOTE ---
Date and Time: 09/21/24 0531 Subjective Assessment: is a 78 year old male with pmhx of Parkinson's disease, sacral decubiti, Diabetes type 2, HTN, HLD admitted 09/11/24 after a fall. He was down on the floor for 14-24 hours. He did not suffer any injuries. Previous hospitalization 07/21/24- 08/02/24 and 08/14/24-08/15/24 with decubiti positive for pseudomonas. He was treated with Merem for 10 days and entered a rehab hospital. He checked himself out of rehab and went home but was unable to care for himself. He had fever in ER and additional complaints of a cough and dyspnea. He has had mild diarrhea. General surgery consulted with debridement perfomred 09/13/24. During hospital course wound culture grew enterococcus faecalis and received cefoxitin and vancomycin initially but now cefoxitin discontinued with final culture results. Patient has also opted for colostomy to aid in healing of his wound with surgical intervention on 09/18/24. PICC placed and plan for OP abx at rehab facility. 09/20/24: Met with patient bedside. No complaints this morning. He is PODS#2 from colostomy placement. DESTIN drain intact with minimal drainage. He is tolerating a soft diet. +flatulence, no stool in bag yet. Surgery following. Plan to d/c to SNF once surgery clears patient and continue vancomycin at SNF. Potassium low this morning and will replenish per protocol. Denies fever,cough, sob, cp, abdominal pain, [place], dizziness, N/V/D. Objective Exam Wound Assessment: Skin/Wound Assessment Wound/Incision Assessment Start: 09/11/24 20:04 Text: Status: Active Freq: Q6H Protocol: Document 09/21/24 02:00 MM (Rec: 09/21/24 03:03 MM [id number]) Wound/Incision Assessment Anterior Abdomen Wound Assessment Shift Assessment Wound Type Incision Dressing Status Dry & Intact Drainage Amount None General Appearance Clean/Dry Primary Dressing Gauze Pads Secondary Dressing tegaderm Comment 4 incision sites on abdomen. Left lower dressing with DESTIN with no new drainage. Remaining 3 dressings appear CDI-remains true Intergluteal Cleft Wound Assessment Shift Assessment Wound Type Pressure Ulcer Wound Stage Unstageable Dressing Status Changed Drainage Amount None Packing Type Gauze Roll Primary Dressing Absorbant Pad Secondary Dressing 4X4 Wound Photo Photo Taken No Objective Data Vital Signs: Vital Signs - 24 hr Temp Pulse Resp BP BP Pulse Ox 09/21/24 04:00 18 09/21/24 03:00 98.7 F 66 18 129/54 97 09/21/24 00:00 20 09/20/24 23:00 97.5 F 63 20 129/61 94 L 09/20/24 20:00 18 09/20/24 19:00 99.1 F 63 18 130/59 93 L 09/20/24 16:00 18 09/20/24 15:00 98.2 F 66 18 142/64 94 L 09/20/24 12:00 20 09/20/24 11:00 98.1 F 63 18 132/64 94 L 09/20/24 08:00 20 09/20/24 07:00 98.9 F 65 18 113/46 93 L Pain Assessment - Last Documented Pain Intensity 4 Pain Scale Used 0-10 Pain Scale Intake and Output: Intake & Output 09/18/24 09/19/24 09/20/24 09/21/24 11:59 11:59 11:59 11:59 Intake Total 20 4865 4661 600 Output Total 2350 1420 1305 1250 Balance -2330 3445 3356 -650 Weight 118.1 kg 118 kg Lab Results: Lab Results-Last 24 Hours 09/20/24 09/20/24 09/20/24 Range/Units 05:20 05:20 05:20 WBC 7.3 (4.23-9.07) x10^3/uL RBC 2.78 L (4.63-6.08) x10^6/uL Hgb 7.6 L (13.7-17.5) g/dL Hct 23.7 L (40.1-51.0) % MCV 85.3 (79.0-92.2) fL MCH 27.3 (25.7-32.2) pg MCHC 32.1 L (32.3-36.5) g/dL RDW 14.1 (11.6-14.4) % Plt Count 189 (163-337) x10^3/uL MPV 9.5 (9.4-12.4) fL Gran % (34.0-67.9) % Immature Gran % (Auto) (0.001-0.429) % Nucleat RBC Rel Count (0.00-0.2) % Eos # (Auto) (0.04-0.54) x10^3/uL Immature Gran # (Auto) (0.001-0.031) x10^3u/L Absolute Lymphs (auto) (1.32-3.57) x10^3/uL Absolute Monos (auto) (0.30-0.82) x10^3/uL Absolute Nucleated RBC (0.00-0.012) x10^3u/L Lymphocytes % (21.8-53.1) % Monocytes % (5.3-12.2) % Eosinophils % (0.8-7.0) % Basophils % (0.2-1.2) % Absolute Granulocytes (1.78-5.38) x10^3/uL Basophils # (0.01-0.08) x10^3/uL Sodium 135 (135-145) mmol/L Potassium 3.3 L (3.5-5.1) mmol/L Chloride 110 H (98-107) mmol/L Carbon Dioxide 21 L (22-30) mmol/L Anion Gap 7.0 (5-15) MEQ/L BUN 10 (9-20) mg/dL Creatinine 0.67 (0.66-1.25) mg/dL Estimated GFR 96.8 ML/MIN Glucose 110 H (74-106) mg/dL POC Glucometer (74 to 106) mg/dL Calcium 7.8 L (8.4-10.2) mg/dL Magnesium (1.6-2.3) mg/dL Total Bilirubin 0.40 (0.2-1.3) mg/dL AST 22 (17-59) U/L ALT 16 (0-50) U/L Alkaline Phosphatase 77 (38-126) U/L Creatine Kinase 77 (55-170) U/L Serum Total Protein 5.4 L (6.3-8.2) g/dL Albumin 2.5 L (3.5-5.0) g/dL Vancomycin Trough (10-20) ug/mL 09/20/24 09/20/24 09/20/24 Range/Units 07:30 09:36 12:07 WBC (4.23-9.07) x10^3/uL RBC (4.63-6.08) x10^6/uL Hgb (13.7-17.5) g/dL Hct (40.1-51.0) % MCV (79.0-92.2) fL MCH (25.7-32.2) pg MCHC (32.3-36.5) g/dL RDW (11.6-14.4) % Plt Count (163-337) x10^3/uL MPV (9.4-12.4) fL Gran % (34.0-67.9) % Immature Gran % (Auto) (0.001-0.429) % Nucleat RBC Rel Count (0.00-0.2) % Eos # (Auto) (0.04-0.54) x10^3/uL Immature Gran # (Auto) (0.001-0.031) x10^3u/L Absolute Lymphs (auto) (1.32-3.57) x10^3/uL Absolute Monos (auto) (0.30-0.82) x10^3/uL Absolute Nucleated RBC (0.00-0.012) x10^3u/L Lymphocytes % (21.8-53.1) % Monocytes % (5.3-12.2) % Eosinophils % (0.8-7.0) % Basophils % (0.2-1.2) % Absolute Granulocytes (1.78-5.38) x10^3/uL Basophils # (0.01-0.08) x10^3/uL Sodium (135-145) mmol/L Potassium (3.5-5.1) mmol/L Chloride (98-107) mmol/L Carbon Dioxide (22-30) mmol/L Anion Gap (5-15) MEQ/L BUN (9-20) mg/dL Creatinine (0.66-1.25) mg/dL Estimated GFR ML/MIN Glucose (74-106) mg/dL POC Glucometer 110 H 201 H (74 to 106) mg/dL Calcium (8.4-10.2) mg/dL Magnesium (1.6-2.3) mg/dL Total Bilirubin (0.2-1.3) mg/dL AST (17-59) U/L ALT (0-50) U/L Alkaline Phosphatase (38-126) U/L Creatine Kinase (55-170) U/L Serum Total Protein (6.3-8.2) g/dL Albumin (3.5-5.0) g/dL Vancomycin Trough 18.85 (10-20) ug/mL 09/20/24 09/20/24 09/20/24 Range/Units 15:31 16:26 18:30 WBC (4.23-9.07) x10^3/uL RBC (4.63-6.08) x10^6/uL Hgb (13.7-17.5) g/dL Hct (40.1-51.0) % MCV (79.0-92.2) fL MCH (25.7-32.2) pg MCHC (32.3-36.5) g/dL RDW (11.6-14.4) % Plt Count (163-337) x10^3/uL MPV (9.4-12.4) fL Gran % (34.0-67.9) % Immature Gran % (Auto) (0.001-0.429) % Nucleat RBC Rel Count (0.00-0.2) % Eos # (Auto) (0.04-0.54) x10^3/uL Immature Gran # (Auto) (0.001-0.031) x10^3u/L Absolute Lymphs (auto) (1.32-3.57) x10^3/uL Absolute Monos (auto) (0.30-0.82) x10^3/uL Absolute Nucleated RBC (0.00-0.012) x10^3u/L Lymphocytes % (21.8-53.1) % Monocytes % (5.3-12.2) % Eosinophils % (0.8-7.0) % Basophils % (0.2-1.2) % Absolute Granulocytes (1.78-5.38) x10^3/uL Basophils # (0.01-0.08) x10^3/uL Sodium (135-145) mmol/L Potassium 3.5 3.9 (3.5-5.1) mmol/L Chloride (98-107) mmol/L Carbon Dioxide (22-30) mmol/L Anion Gap (5-15) MEQ/L BUN (9-20) mg/dL Creatinine (0.66-1.25) mg/dL Estimated GFR ML/MIN Glucose (74-106) mg/dL POC Glucometer 82 (74 to 106) mg/dL Calcium (8.4-10.2) mg/dL Magnesium (1.6-2.3) mg/dL Total Bilirubin (0.2-1.3) mg/dL AST (17-59) U/L ALT (0-50) U/L Alkaline Phosphatase (38-126) U/L Creatine Kinase (55-170) U/L Serum Total Protein (6.3-8.2) g/dL Albumin (3.5-5.0) g/dL Vancomycin Trough (10-20) ug/mL 09/20/24 09/21/24 09/21/24 Range/Units 21:20 04:00 04:00 WBC 5.8 (4.23-9.07) x10^3/uL RBC 2.61 L (4.63-6.08) x10^6/uL Hgb 7.2 L (13.7-17.5) g/dL Hct 22.4 L (40.1-51.0) % MCV 85.8 (79.0-92.2) fL MCH 27.6 (25.7-32.2) pg MCHC 32.1 L (32.3-36.5) g/dL RDW 14.3 (11.6-14.4) % Plt Count 157 L (163-337) x10^3/uL MPV 9.1 L (9.4-12.4) fL Gran % 46.2 (34.0-67.9) % Immature Gran % (Auto) 0.7 H (0.001-0.429) % Nucleat RBC Rel Count 0.0 (0.00-0.2) % Eos # (Auto) 0.30 (0.04-0.54) x10^3/uL Immature Gran # (Auto) 0.04 H (0.001-0.031) x10^3u/L Absolute Lymphs (auto) 2.28 (1.32-3.57) x10^3/uL Absolute Monos (auto) 0.49 (0.30-0.82) x10^3/uL Absolute Nucleated RBC 0.00 (0.00-0.012) x10^3u/L Lymphocytes % 39.2 (21.8-53.1) % Monocytes % 8.4 (5.3-12.2) % Eosinophils % 5.2 (0.8-7.0) % Basophils % 0.3 (0.2-1.2) % Absolute Granulocytes 2.68 (1.78-5.38) x10^3/uL Basophils # 0.02 (0.01-0.08) x10^3/uL Sodium 136 (135-145) mmol/L Potassium 3.8 (3.5-5.1) mmol/L Chloride 111 H (98-107) mmol/L Carbon Dioxide 23 (22-30) mmol/L Anion Gap 5.3 (5-15) MEQ/L BUN 9 (9-20) mg/dL Creatinine 0.63 L (0.66-1.25) mg/dL Estimated GFR 98.6 ML/MIN Glucose 111 H (74-106) mg/dL POC Glucometer 143 H (74 to 106) mg/dL Calcium 7.6 L (8.4-10.2) mg/dL Magnesium 1.4 L (1.6-2.3) mg/dL Total Bilirubin 0.30 (0.2-1.3) mg/dL AST 23 (17-59) U/L ALT 15 (0-50) U/L Alkaline Phosphatase 80 (38-126) U/L Creatine Kinase (55-170) U/L Serum Total Protein 5.2 L (6.3-8.2) g/dL Albumin 2.4 L (3.5-5.0) g/dL Vancomycin Trough (10-20) ug/mL Assessment/Plan (1) Pressure ulcer of buttock, unstageable Current Visit: Yes Status: Chronic Qualifiers: Laterality: unspecified laterality Qualified Code(s): L89.300 - Pressure ul cer of unspecified buttock, unstageable Assessment & Plan: -s/p debridement 09/13/24 with gen surgery - following - Continue antibiotics and wound care. - wound culture enterococcus faecalis - Colostomy placed 09/18/24 - CBC, CMP reviewed - WBC WNL at 7.3 - Tele - Vancomycin IV/cefoxitin- changed to Vancomycin only Code(s): L89.300 - PRESSURE ULCER OF UNSPECIFIED BUTTOCK, UNSTAGEABLE (2) Hypokalemia Current Visit: Yes Status: Acute Assessment & Plan: -Potassium reviewed at 3.3 - will replenish per protocol -monitor renal/lytes daily -tele 09/21/23: -potassium level reviewed at 3.8 - will add potassium supplements Code(s): E87.6 - HYPOKALEMIA Hypomagnesemia -Mag level reviewed at 104 - will replenish per protocol (3) Bacteremia due to Enterococcus Current Visit: Yes Status: Acute Assessment & Plan: - Source is likely the patient's wound -Initial treament with cefoxitin and vanc - now on vanc only with final culture result - No murmur on exam. - Echo results show no vegetation on heart valves - PICC line placement TTE 09/13/[address] Barajas: 1. Normal LV size and function. 2. Mild concentric left ventricular hypertrophy. 3. Left ventricular ejection fraction estimated by 2D at 55-60 percent. 4. Mild to moderate right ventricular dilatation. Normal RV systolic function. 5. Aortic valve is tricuspid with mild sclerosis. 6. There is no significant pericardial effusion. 7. Per my review a. No vegetations b. Normal right atrial pressure. Carotid Doppler 02/12/2022: 1. Status post right carotid endarterectomy without critical stenosis/obstruction. 2. Stable left carotid arteriosclerotic plaquing as detailed. Velocity measurements and ratios remaining negative for hemodynamically significant flow-limiting stenosis. Cardiac catheterization approximately 2019: Per patient's report, no significant CAD. PCI not recommended. Myocardial perfusion scan 01/16/2015: 1. Normal MPS without evidence of a prior infarct or ischemia. 2. Gated images reveal normal wall motion. Calculated LVEF 46% (suspect this was erroneous). - repeat BC x2 negative Code(s): R78.81 - BACTEREMIA; B95.2 - ENTEROCOCCUS THE CAUSE OF DISEASES CLASSIFIED ELSEWHERE (4) COVID-19 Current Visit: Yes Status: Acute Assessment & Plan: - Isolation precautions Code(s): U07.1 - COVID-19 (5) Rhabdomyolysis Current Visit: Yes Status: Acute Assessment & Plan: - Continue to trend CPK - currently pending - IV fluids Code(s): M62.82 - RHABDOMYOLYSIS (6) HTN (hypertension) Current Visit: Yes Status: Chronic Qualifiers: Hypertension type: primary hypertension Qualified Code(s): I10 - Essential (primary) hypertension Assessment & Plan: - Continue home meds - metoprolol increased to 25mg BID 09/17/24 - BP stable Code(s): I10 - ESSENTIAL (PRIMARY) HYPERTENSION (7) Parkinson disease Current Visit: Yes Status: Chronic Qualifiers: Dyskinesia presence: with dyskinesia Fluctuating manifestations: with fluctuating manifestations Qualified Code(s): G20.B2 - Parkinson's disease with dyskinesia, with fluctuations Assessment & Plan: -continue home meds Code(s): G20.A1 - PARKINSON'S DIS W/O DYSKINESIA, W/O MENTION OF FLUCTUATIONS (8) Type II diabetes mellitus Current Visit: Yes Status: Chronic Qualifiers: Diabetes mellitus snf insulin use: without snf use Diabetes mellitus complication status: with hyperglycemia Qualified Code(s): E11.65 - Type 2 diabetes mellitus with hyperglycemia Assessment & Plan: - Accuchecks AC/HS - ADA diet - SSI - A1c 6.60- (9) Anemia Current Visit: No Status: Chronic Assessment & Plan: -Chronic and at baseline -Reviewed cbc - hgb at 7.6 today -transfuse if < 7 - IV Iron infusions started as ferrous sulfate has an interaction with his Parkinson medication 09/21/24: -hgb reviewed at 7.2 this morning - will transfuse with 2u LPRBC per protocol Code(s): D64.9 - ANEMIA, UNSPECIFIED (10) Hyperlipidemia Current Visit: No Status: Chronic Assessment & Plan: -continue statin Code(s): E78.5 - HYPERLIPIDEMIA, UNSPECIFIED (11) Obesity (BMI 30-39.9) Current Visit: No Status: Chronic Assessment & Plan: -advised diet and exercise control Code(s): E66.9 - OBESITY, UNSPECIFIED (12) CAD (coronary artery disease) Current Visit: Yes Status: Acute Assessment & Plan: - Per cardiology-S/P right CEA in 2020. He may also have CAD which apparently was refuted on a cardiac cath in 2019 (report not available). No evaluation of coronary arteries since then. No history of angina though this could be hidden with his sedentary state. Code(s): I25.10 - ATHSCL HEART DISEASE OF [place] CORONARY ARTERY W/O ANG PCTRS (13) Colostomy in place Current Visit: Yes Status: Acute Assessment & Plan: - POD #2 - placed 09/18/24 by general surgery to aide in sacrum wound healing - Colostomy care VTE: Lovenox PPI: Protonix Next of KIN: Callie Talavera, Friend [phone] D/C plan: per surgery recs Code status: Full Code(s): L89.300 - PRESSURE ULCER OF UNSPECIFIED BUTTOCK, UNSTAGEABLE (2) Hypokalemia Current Visit: Yes Status: Acute Code(s): E87.6 - HYPOKALEMIA (3) Bacteremia due to Enterococcus Current Visit: Yes Status: Acute Code(s): R78.81 - BACTEREMIA; B95.2 - ENTEROCOCCUS THE CAUSE OF DISEASES CLASSIFIED ELSEWHERE (4) COVID-19 Current Visit: Yes Status: Acute Code(s): U07.1 - COVID-19 (5) Rhabdomyolysis Current Visit: Yes Status: Acute Code(s): M62.82 - RHABDOMYOLYSIS (6) HTN (hypertension) Current Visit: Yes Status: Chronic Qualifiers: Hypertension type: primary hypertension Qualified Code(s): I10 - Essential (primary) hypertension Code(s): I10 - ESSENTIAL (PRIMARY) HYPERTENSION (7) Parkinson disease Current Visit: Yes Status: Chronic Qualifiers: Dyskinesia presence: with dyskinesia Fluctuating manifestations: with fluctuating manifestations Qualified Code(s): G20.B2 - Parkinson's disease with dyskinesia, with fluctuations Code(s): G20.A1 - PARKINSON'S DIS W/O DYSKINESIA, W/O MENTION OF FLUCTUATIONS (8) Type II diabetes mellitus Current Visit: Yes Status: Chronic Qualifiers: Diabetes mellitus snf insulin use: without snf use Diabetes demetrius litus complication status: with hyperglycemia Qualified Code(s): E11.65 - Type 2 diabetes mellitus with hyperglycemia (9) Anemia Current Visit: No Status: Chronic Code(s): D64.9 - ANEMIA, UNSPECIFIED (10) Hyperlipidemia Current Visit: No Status: Chronic Code(s): E78.5 - HYPERLIPIDEMIA, UNSPECIFIED (11) Obesity (BMI 30-39.9) Current Visit: No Status: Chronic Code(s): E66.9 - OBESITY, UNSPECIFIED (12) CAD (coronary artery disease) Current Visit: Yes Status: Acute Code(s): I25.10 - ATHSCL HEART DISEASE OF [place] CORONARY ARTERY W/O ANG PCTRS (13) Colostomy in place Current Visit: Yes Status: Acute Code(s): Z93.3 - COLOSTOMY STATUS (14) Hypomagnesemia Current Visit: Yes Status: Acute Code(s): E83.42 - HYPOMAGNESEMIA
[2024-09-21] MEDS ORDERED: Lasix 20 MG/2 ML IV SCH ×2 (07:38→15:30)
[2024-09-21] MEDS: MAGNESIUM SULF 2 G/50 ML BAG 2 GM/50 ML PIGGYBACK IV ONE (08:13)
[2024-09-21] MEDS: Klor Con PO SCH (09:13)
[2024-09-21 09:49] LABS: CROSS MATCH (PRBC) COMPATIBLE (COMPATIBLE)
[2024-09-21 09:50] LABS: ABO TYPING O; Antibody Screen NEGATIVE (NEGATIVE); RH TYPING POSITIVE
[2024-09-21 09:53] LABS: CROSS MATCH (PRBC) COMPATIBLE (COMPATIBLE)
--- NOTE | 2024-09-21 12:28 | PCM.DS ---
Discharge Summary Date of Admission: 09/12/24 05:35 Date of Discharge: 09/21/24 Admitting Physician: NIA DOUGHERTY MD Consults: Consults on Case 09/12/24 11:24 Consult Surgery ROUTINE 09/16/24 10:31 Consult Cardiology ROUTINE Primary Care Provider: LENA DUGGAN Allergies Allergies No Known Drug Allergies Allergy (Verified 07/21/24 07:00) Hospital Summary - Hospital Course Hospital Course: is a 78 year old male with pmhx of Parkinson's disease, sacral decubiti, Diabetes type 2, HTN, HLD admitted 09/11/24 after a fall. He was down on the floor for 14-24 hours. He did not suffer any injuries. Previous hospitalization 07/21/24- 08/02/24 and 08/14/24-08/15/24 with decubiti positive for pseudomonas. He was treated with [facility] for 10 days and entered a rehab hospital. He checked himself out of rehab and went home but was unable to care for himself. He had fever in ER and additional complaints of a cough and dyspnea. He has had mild diarrhea. General surgery consulted with debridement perfomred 09/13/24. During hospital course wound culture grew enterococcus faecalis and received cefoxitin and vancomycin initially but now cefoxitin discontinued with final culture results. Patient has also opted for colostomy to aid in healing of his wound with surgical intervention on 09/18/24. PICC placed and plan for OP abx at rehab facility initially but patient has now completed co urse of abx at our facility. Will discontinue vanc. Keep PICC line with routine flushes until follow up with ID . Patient has been cleared by surgery for discharge. Will leave in [place] to aid in wound healing. DESTIN to be pulled per surgery. Will transfuse prior to discharge today with hgb at 7.2. Patient will need CBC tomorrow. Appts for wound clinic and ID Dr. Arrieta made as well as surgical follow up. Patient to discharge to SNF. Follow up hematology for iv iron infusions. Discharge Note Latest Assessment & Plan (1) Pressure ulcer of buttock, unstageable Current Visit: Yes Status: Chronic Qualifiers: Laterality: unspecified laterality Qualified Code(s): L89.300 - Pressure ulcer of unspecified buttock, unstageable Assessment & Plan: -s/p debridement 09/13/24 with gen surgery - following - Continue antibiotics and wound care. - wound culture enterococcus faecalis - Colostomy placed 09/18/24 - CBC, CMP reviewed - WBC WNL at 7.3 - Tele - Vancomycin IV/cefoxitin- changed to Vancomycin only Code(s): L89.300 - PRESSURE ULCER OF UNSPECIFIED BUTTOCK, UNSTAGEABLE (2) Hypokalemia Current Visit: Yes Status: Acute Assessment & Plan: -Potassium reviewed at 3.3 - will replenish per protocol -monitor renal/lytes daily -tele 09/21/23: -potassium level reviewed at 3.8 - will add potassium supplements Code(s): E87.6 - HYPOKALEMIA Hypomagnesemia -Mag level reviewed at 104 - will replenish per protocol (3) Bacteremia due to Enterococcus Current Visit: Yes Status: Acute Assessment & Plan: - Source is likely the patient's wound -Initial treament with cefoxitin and vanc - now on vanc only with final culture result - No murmur on exam. - Echo results show no vegetation on heart valves - PICC line placement TTE 09/13/[address] Barajas: 1. Normal LV size and function. 2. Mild concentric left ventricular hypertrophy. 3. Left ventricular ejection fraction estimated by 2D at 55-60 percent. 4. Mild to moderate right ventricular dilatation. Normal RV systolic function. 5. Aortic valve is tricuspid with mild sclerosis. 6. There is no significant pericardial effusion. 7. Per my review a. No vegetations b. Normal right atrial pressure. Carotid Doppler 02/12/2022: 1. Status post right carotid endarterectomy without critical stenosis/obstruction. 2. Stable left carotid arteriosclerotic plaquing as detailed. Velocity measurements and ratios remaining negative for hemodynamically significant flow-limiting stenosis. Cardiac catheterization approximately 2019: Per patient's report, no significant CAD. PCI not recommended. Myocardial perfusion scan 01/16/2015: 1. Normal MPS without evidence of a prior infarct or ischemia. 2. Gated images reveal normal wall motion. Calculated LVEF 46% (suspect this was erroneous). - repeat BC x2 negative Code(s): R78.81 - BACTEREMIA; B95.2 - ENTEROCOCCUS THE CAUSE OF DISEASES CLASSIFIED ELSEWHERE (4) COVID-19 Current Visit: Yes Status: Acute Assessment & Plan: - Isolation precautions Code(s): U07.1 - COVID-19 (5) Rhabdomyolysis Current Visit: Yes Status: Acute Assessment & Plan: - Continue to trend CPK - currently pending - IV fluids Code(s): M62.82 - RHABDOMYOLYSIS (6) HTN (hypertension) Current Visit: Yes Status: Chronic Qualifiers: Hypertension type: primary hypertension Qualified Code(s): I10 - Essential (primary) hypertension Assessment & Plan: - Continue home meds - metoprolol increased to 25mg BID 09/17/24 - BP stable Code(s): I10 - ESSENTIAL (PRIMARY) HYPERTENSION (7) Parkinson disease Current Visit: Yes Status: Chronic Qualifiers: Dyskinesia presence: with dyskinesia Fluctuating manifestations: with fluctuating manifestations Qualified Code(s): G20.B2 - Parkinson's disease with dyskinesia, with fluctuations Assessment & Plan: -continue home meds Code(s): G20.A1 - PARKINSON'S DIS W/O DYSKINESIA, W/O MENTION OF FLUCTUATIONS (8) Type II diabetes mellitus Current Visit: Yes Status: Chronic Qualifiers: Diabetes mellitus retirement insulin use: without retirement use Diabetes mellitus complication status: with hyperglycemia Qualified Code(s): E11.65 - Type 2 diabetes mellitus with hyperglycemia Assessment & Plan: - Accuchecks AC/HS - ADA diet - SSI - A1c 6.60- (9) Anemia Current Visit: No Status: Chronic Assessment & Plan: -Chronic and at baseline -Reviewed cbc - hgb at 7.6 today -transfuse if < 7 - IV Iron infusions started as ferrous sulfate has an interaction with his Parkinson medication 09/21/24: -hgb reviewed at 7.2 this morning - will transfuse with 2u LPRBC per protocol Code(s): D64.9 - ANEMIA, UNSPECIFIED (10) Hyperlipidemia Current Visit: No Status: Chronic Assessment & Plan: -continue statin Code(s): E78.5 - HYPERLIPIDEMIA, UNSPECIFIED (11) Obesity (BMI 30-39.9) Current Visit: No Status: Chronic Assessment & Plan: -advised diet and exercise control Code(s): E66.9 - OBESITY, UNSPECIFIED (12) CAD (coronary artery disease) Current Visit: Yes Status: Acute Assessment & Plan: - Per cardiology-S/P right CEA in 2020. He may also have CAD which apparently was refuted on a cardiac cath in 2019 (report not available). No evaluation of coronary arteries since then. No history of angina though this could be hidden with his sedentary state. Code(s): I25.10 - ATHSCL HEART DISEASE OF [place] CORONARY ARTERY W/O ANG PCTRS (13) Colostomy in place Current Visit: Yes Status: Acute Assessment & Plan: - POD #3 -BM + -maddy to be removed on day 7 - placed 09/18/24 by general surgery to aide in sacrum wound healing - Colostomy care - I spent 35 minutes adky-ir-fich with the patient on the day of discharge performing discharge exam, discussing hospital stay and discharge instructions with patient and caregivers, preparation of discharge records, prescriptions & referral forms and addressing any questions/concerns the patient had as documented above. - Vitals & Intake/Output Vital Signs: Vital Signs Temperature 98.0 F 09/21/24 11:00 Pulse Rate 65 09/21/24 11:00 Respiratory Rate 20 09/21/24 12:00 Blood Pressure 121/55 09/21/24 11:00 O2 Sat by Pulse Oximetry 96 09/21/24 11:00 Intake & Output: Intake & Output 09/19/24 09/20/24 09/21/24 09/22/24 11:59 11:59 11:59 11:59 Intake Total 4865 4661 2480 Output Total 1420 1330 1805 Balance 3445 3331 675 Weight 118 kg - Lab Result Diagrams: 09/21/24 04:00 09/21/24 04:00 Lab Results-Last 24 Hrs: Lab Results-Last 24 Hours 09/20/24 09/20/24 09/20/24 Range/Units 15:31 16:26 18:30 WBC (4.23-9.07) x10^3/uL RBC (4.63-6.08) x10^6/uL Hgb (13.7-17.5) g/dL Hct (40.1-51.0) % MCV (79.0-92.2) fL MCH (25.7-32.2) pg MCHC (32.3-36.5) g/dL RDW (11.6-14.4) % Plt Count (163-337) x10^3/uL MPV (9.4-12.4) fL Gran % (34.0-67.9) % Immature Gran % (Auto) (0.001-0.429) % Nucleat RBC Rel Count (0.00-0.2) % Eos # (Auto) (0.04-0.54) x10^3/uL Immature Gran # (Auto) (0.001-0.031) x10^3u/L Absolute Lymphs (auto) (1.32-3.57) x10^3/uL Absolute Monos (auto) (0.30-0.82) x10^3/uL Absolute Nucleated RBC (0.00-0.012) x10^3u/L Lymphocytes % (21.8-53.1) % Monocytes % (5.3-12.2) % Eosinophils % (0.8-7.0) % Basophils % (0.2-1.2) % Absolute Granulocytes (1.78-5.38) x10^3/uL Basophils # (0.01-0.08) x10^3/uL Sodium (135-145) mmol/L Potassium 3.5 3.9 (3.5-5.1) mmol/L Chloride (98-107) mmol/L Carbon Dioxide (22-30) mmol/L Anion Gap (5-15) MEQ/L BUN (9-20) mg/dL Creatinine (0.66-1.25) mg/dL Estimated GFR ML/MIN Glucose (74-106) mg/dL POC Glucometer 82 (74 to 106) mg/dL Calcium (8.4-10.2) mg/dL Magnesium (1.6-2.3) mg/dL Total Bilirubin (0.2-1.3) mg/dL AST (17-59) U/L ALT (0-50) U/L Alkaline Phosphatase (38-126) U/L Serum Total Protein (6.3-8.2) g/dL Albumin (3.5-5.0) g/dL ABO Group Rh Factor Antibody Screen (NEGATIVE) Crossmatch (COMPATIBLE) 09/20/24 09/21/24 09/21/24 Range/Units 21:20 04:00 04:00 WBC 5.8 (4.23-9.07) x10^3/uL RBC 2.61 L (4.63-6.08) x10^6/uL Hgb 7.2 L (13.7-17.5) g/dL Hct 22.4 L (40.1-51.0) % MCV 85.8 (79.0-92.2) fL MCH 27.6 (25.7-32.2) pg MCHC 32.1 L (32.3-36.5) g/dL RDW 14.3 (11.6-14.4) % Plt Count 157 L (163-337) x10^3/uL MPV 9.1 L (9.4-12.4) fL Gran % 46.2 (34.0-67.9) % Immature Gran % (Auto) 0.7 H (0.001-0.429) % Nucleat RBC Rel Count 0.0 (0.00-0.2) % Eos # (Auto) 0.30 (0.04-0.54) x10^3/uL Immature Gran # (Auto) 0.04 H (0.001-0.031) x10^3u/L Absolute Lymphs (auto) 2.28 (1.32-3.57) x10^3/uL Absolute Monos (auto) 0.49 (0.30-0.82) x10^3/uL Absolute Nucleated RBC 0.00 (0.00-0.012) x10^3u/L Lymphocytes % 39.2 (21.8-53.1) % Monocytes % 8.4 (5.3-12.2) % Eosinophils % 5.2 (0.8-7.0) % Basophils % 0.3 (0.2-1.2) % Absolute Granulocytes 2.68 (1.78-5.38) x10^3/uL Basophils # 0.02 (0.01-0.08) x10^3/uL Sodium 136 (135-145) mmol/L Potassium 3.8 (3.5-5.1) mmol/L Chloride 111 H (98-107) mmol/L Carbon Dioxide 23 (22-30) mmol/L Anion Gap 5.3 (5-15) MEQ/L BUN 9 (9-20) mg/dL Creatinine 0.63 L (0.66-1.25) mg/dL Estimated GFR 98.6 ML/MIN Glucose 111 H (74-106) mg/dL POC Glucometer 143 H (74 to 106) mg/dL Calcium 7.6 L (8.4-10.2) mg/dL Magnesium 1.4 L (1.6-2.3) mg/dL Total Bilirubin 0.30 (0.2-1.3) mg/dL AST 23 (17-59) U/L ALT 15 (0-50) U/L Alkaline Phosphatase 80 (38-126) U/L Serum Total Protein 5.2 L (6.3-8.2) g/dL Albumin 2.4 L (3.5-5.0) g/dL ABO Group Rh Factor Antibody Screen (NEGATIVE) Crossmatch (COMPATIBLE) 09/21/24 09/21/24 09/21/24 Range/Units 07:57 08:12 08:12 WBC (4.23-9.07) x10^3/uL RBC (4.63-6.08) x10^6/uL Hgb (13.7-17.5) g/dL Hct (40.1-51.0) % MCV (79.0-92.2) fL MCH (25.7-32.2) pg MCHC (32.3-36.5) g/dL RDW (11.6-14.4) % Plt Count (163-337) x10^3/uL MPV (9.4-12.4) fL Gran % (34.0-67.9) % Immature Gran % (Auto) (0.001-0.429) % Nucleat RBC Rel Count (0.00-0.2) % Eos # (Auto) (0.04-0.54) x10^3/uL Immature Gran # (Auto) (0.001-0.031) x10^3u/L Absolute Lymphs (auto) (1.32-3.57) x10^3/uL Absolute Monos (auto) (0.30-0.82) x10^3/uL Absolute Nucleated RBC (0.00-0.012) x10^3u/L Lymphocytes % (21.8-53.1) % Monocytes % (5.3-12.2) % Eosinophils % (0.8-7.0) % Basophils % (0.2-1.2) % Absolute Granulocytes (1.78-5.38) x10^3/uL Basophils # (0.01-0.08) x10^3/uL Sodium (135-145) mmol/L Potassium (3.5-5.1) mmol/L Chloride (98-107) mmol/L Carbon Dioxide (22-30) mmol/L Anion Gap (5-15) MEQ/L BUN (9-20) mg/dL Creatinine (0.66-1.25) mg/dL Estimated GFR ML/MIN Glucose (74-106) mg/dL POC Glucometer 116 H (74 to 106) mg/dL Calcium (8.4-10.2) mg/dL Magnesium (1.6-2.3) mg/dL Total Bilirubin (0.2-1.3) mg/dL AST (17-59) U/L ALT (0-50) U/L Alkaline Phosphatase (38-126) U/L Serum Total Protein (6.3-8.2) g/dL Albumin (3.5-5.0) g/dL ABO Group O Rh Factor POSITIVE Antibody Screen NEGATIVE (NEGATIVE) Crossmatch COMPATIBLE COMPATIBLE (COMPATIBLE) 09/21/24 Range/Units 11:01 WBC (4.23-9.07) x10^3/uL RBC (4.63-6.08) x10^6/uL Hgb (13.7-17.5) g/dL Hct (40.1-51.0) % MCV (79.0-92.2) fL MCH (25.7-32.2) pg MCHC (32.3-36.5) g/dL RDW (11.6-14.4) % Plt Count (163-337) x10^3/uL MPV (9.4-12.4) fL Gran % (34.0-67.9) % Immature Gran % (Auto) (0.001-0.429) % Nucleat RBC Rel Count (0.00-0.2) % Eos # (Auto) (0.04-0.54) x10^3/uL Immature Gran # (Auto) (0.001-0.031) x10^3u/L Absolute Lymphs (auto) (1.32-3.57) x10^3/uL Absolute Monos (auto) (0.30-0.82) x10^3/uL Absolute Nucleated RBC (0.00-0.012) x10^3u/L Lymphocytes % (21.8-53.1) % Monocytes % (5.3-12.2) % Eosinophils % (0.8-7.0) % Basophils % (0.2-1.2) % Absolute Granulocytes (1.78-5.38) x10^3/uL Basophils # (0.01-0.08) x10^3/uL Sodium (135-145) mmol/L Potassium (3.5-5.1) mmol/L Chloride (98-107) mmol/L Carbon Dioxide (22-30) mmol/L Anion Gap (5-15) MEQ/L BUN (9-20) mg/dL Creatinine (0.66-1.25) mg/dL Estimated GFR ML/MIN Glucose (74-106) mg/dL POC Glucometer 150 H (74 to 106) mg/dL Calcium (8.4-10.2) mg/dL Magnesium (1.6-2.3) mg/dL Total Bilirubin (0.2-1.3) mg/dL AST (17-59) U/L ALT (0-50) U/L Alkaline Phosphatase (38-126) U/L Serum Total Protein (6.3-8.2) g/dL Albumin (3.5-5.0) g/dL ABO Group Rh Factor Antibody Screen (NEGATIVE) Crossmatch (COMPATIBLE) Micro Results-Entire Visit: Microbiology 09/13/24 17:10 Blood Culture - Final Blood 09/13/24 16:55 Blood Culture - Final Blood 09/11/24 13:15 Blood Culture Gram Stain - Final Blood Blood Culture - Final ADDITIONAL TESTING IS REQUIRED TO OBTAIN ID AND SENSITIVITY. SPECIMEN HAS BEEN SENT TO REFERENCE LAB, WITH FINAL RESULT EXPECTED WITHIN 96 HOURS. 09/11/24 12:47 Aerobic Culture - Final Blood Aerobic Organism ID Result 1 - Final 09/12/24 15:46 Wound Culture - Final Decubitus Ulcer - Posterior Enterococcus Faecalis 09/12/24 15:32 Wound Culture - Final Decubitus Ulcer - Posterior Enterococcus Faecalis 09/12/24 10:27 Urine Culture - Final Urine, Indwelling Catheter NO GROWTH 09/11/24 13:00 Urine Culture - Final Urine, Catheterized NO GROWTH Accuchecks Date 09/21/24 Date 09/21/24 Date 09/20/24 Date 09/20/24 Time 11:42 Time 08:12 - Procedures and Test Procedures and Tests throughout Hospitalization: Therapy Orders & Screens 09/11/24 17:32 PT Eval & Treat ( Order) ONCE Reason for Eval:: Decubitus wound sacrum/perineum Diagnosis: covid. debility 09/11/24 20:04 OT Screen per Nursing Assess ONCE Comment: Protocol Order Physician Instructions: Greater than 3 points order OT Admission Screening Reason For Exam: Triggered on Admission Diagnosis: covid. debility Open Wound/Cellutlitis/Pressure Ulcers: Yes Acute Fx/ORIF/Change in wt bearing status: Yes Severe MUSCULOSKELETAL pain: No ADL Dysfunction: Yes Acute CVA w/Hemiparesis/Hemiplegia: No Decreased Functional Mobility/Strength: Yes Sprain/Strain: No Acute Post-op Mobility Dysfunction: No Total Points: 14 PT Screen per Nursing Assess ONCE Comment: Protocol Order Physician Instructions: Greater than 3 points order PT Admission Screenin Reason For Exam: Triggered on Admission Diagnosis: covid. debility Open Wound/Cellutlitis/Pressure Ulcers: Yes Acute Fx/ORIF/Change in wt bearing status: Yes Severe MUSCULOSKELETAL pain: No ADL Dysfunction: Yes Acute CVA w/Hemiparesis/Hemiplegia: No Decreased Functional Mobility/Strength: Yes Sprain/Strain: No Acute Post-op Mobility Dysfunction: No Total Points: 14 09/17/24 04:25 EKG ROUTINE Comment: Diagnosis: RHABDOMYOLYSIS, COVID-19, SACRAL WOUND 09/17/24 11:40 Cardiolite Stress Test-RT ONCE Comment: Reason For Exam: Diagnosis: RHABDOMYOLYSIS, COVID-19, SACRAL WOUND 09/18/24 10:15 Incentive Spirometry UD Comment: 10 breaths every 1 hour [place] Diagnosis: RHABDOMYOLYSIS, COVID-19, SACRAL WOUND Discharge Exam General Appearance: no apparent distress Neurologic Exam: alert, oriented x 3, cooperative Eye Exam: PERRL Ears, Nose, Throat Exam: normal ENT inspection Neck Exam: normal inspection Respiratory Exam: normal breath sounds, lungs clear Cardiovascular Exam: regular rate/rhythm, normal heart sounds Gastrointestinal/Abdomen Exam: soft, normal bowel sounds, tenderness, other (colostomy) Male Genitalia Exam: deferred Rectal Exam: deferred Back Exam: normal inspection Extremity Exam: normal inspection Skin Exam: other (see wound assessment) Wound Assessment: Skin/Wound Assessment Wound/Incision Assessment Start: 09/11/24 20:04 Text: Status: Active Freq: Q6H Protocol: Document 09/21/24 08:00 [facility] (Rec: 09/21/24 12:07 [facility] [id number]) Wound/Incision Assessment Anterior Abdomen Wound Assessment Shift Assessment Wound Type Incision Wound Stage Non Pressure Wound Dressing Status Dry & Intact Drainage Amount None General Appearance Clean/Dry Primary Dressing Gauze Pads Secondary Dressing tegaderm Comment 4 incision sites on abdomen. Left lower dressing with DESTIN with no new drainage. Remaining 3 dressings appear CDI-remains true Intergluteal Cleft Wound Assessment Shift Assessment Wound Type Pressure Ulcer Wound Stage Unstageable Dressing Status Reinforced Packing Type Gauze Roll Primary Dressing Absorbant Pad Secondary Dressing 4X4 Left Lower Abdomen Drain Type DESTIN drain Drainage Description Serosanguineous Odor None/Absent Wound Photo Photo Taken No Final Diagnosis/Problem List - Final Discharge Diagnosis/Problem (1) Pressure ulcer of buttock, unstageable Current Visit: Yes Status: Chronic Code(s): L89.300 - PRESSURE ULCER OF UNSPECIFIED BUTTOCK, UNSTAGEABLE (2) Hypokalemia Current Visit: Yes Status: Resolved Code(s): E87.6 - HYPOKALEMIA (3) Bacteremia due to Enterococcus Current Visit: Yes Status: Acute Code(s): R78.81 - BACTEREMIA; B95.2 - ENTEROCOCCUS THE CAUSE OF DISEASES CLASSIFIED ELSEWHERE (4) COVID-19 Current Visit: Yes Status: Acute Code(s): U07.1 - COVID-19 (5) Rhabdomyolysis Current Visit: Yes Status: Resolved Code(s): M62.82 - RHABDOMYOLYSIS (6) HTN (hypertension) Current Visit: Yes Status: Chronic Code(s): I10 - ESSENTIAL (PRIMARY) HYPERTENSION (7) Parkinson disease Current Visit: Yes Status: Chronic Code(s): G20.A1 - PARKINSON'S DIS W/O DYSKINESIA, W/O MENTION OF FLUCTUATIONS (8) Type II diabetes mellitus Current Visit: Yes Status: Chronic (9) Anemia Current Visit: No Status: Chronic Code(s): D64.9 - ANEMIA, UNSPECIFIED (10) Hyperlipidemia Current Visit: No Status: Chronic Code(s): E78.5 - HYPERLIPIDEMIA, UNSPECIFIED (11) Obesity (BMI 30-39.9) Current Visit: No Status: Chronic Code(s): E66.9 - OBESITY, UNSPECIFIED (12) CAD (coronary artery disease) Current Visit: Yes Status: Acute Code(s): I25.10 - ATHSCL HEART DISEASE OF [place] CORONARY ARTERY W/O ANG PCTRS (13) Colostomy in place Current Visit: Yes Status: Chronic Code(s): Z93.3 - COLOSTOMY STATUS (14) Hypomagnesemia Current Visit: Yes Status: Resolved Code(s): E83.42 - HYPOMAGNESEMIA - Discharge Disposition: Home, Self-Care Condition: Stable Prescriptions: Continue lisinopriL [Zestril] 40 mg PO DAILY Metformin HCl 500 mg [Glucophage 500 MG] 500 mg PO DAILY Ezetimibe 10 mg PO QHS Atorvastatin Calcium [Lipitor] 80 mg PO QHS Metoprolol Tartrate 25 mg [Lopressor 25MG Tab] 50 mg PO DAILY Carbidopa/Levodopa [Carbidopa-Levodopa 25-100 Tab] 2 tab PO 0600 Carbidopa/Levodopa 25/100 mg [Sinemet 25/100 MG] 1 tab PO 1200 Furosemide 40 mg [Lasix 40 MG] 40 mg PO DAILY Potassium Chloride 10 meq PO DAILY Acetaminophen 325 mg [Tylenol 325 mg] 650 mg PO Q6HPRN PRN PRN Reason: FEVER OR PAIN Docusate Sodium 100 mg [Docusate Sodium 100 MG] 100 mg PO DAILY Magnesium Hydroxide 30 ml [Milk of Magnesia 30 ml] 30 ml PO DAILY PRN PRN PRN Reason: Constipation bisacodyL [Bisacodyl] 10 mg RC DAILY PRN PRN PRN Reason: Constipation Changed Hydrocodone/Acetaminophen [[place] 10-325 mg] 1 tab PO Q6HPRN PRN 3 Days #12 tablet MDD 4 PRN Reason: Pain Additional Instructions: HALF-WAY ORDERS: PATIENT HAS A FOLLOW UP AT [facility] 09/29/24@1045 Follow up with: LENA DUGGAN MD [Primary Care Provider] - 09/29/24 2:15 pm IDALIA ARRIETA [NON-STAFF PHY W/O PRIVILEGES] - 09/28/24 2:15 pm MAHAD VILLASEÑOR [COURTESY STAFF] - 09/27/24 12:10 pm ([facility] ([facility] 2ND FLOOR))
[2024-09-21] MEDS: BENADRYL 50 MG/ML IV ONE ×2 (15:27→16:13)
[2024-09-21 16:31] LABS: Hematocrit 25.4 % (40.1-51.0); Hemoglobin 8.2 g/dL (13.7-17.5)
[2024-09-21 20:14] VITALS: BP 136/67; PULSE 65; RESP 18; TEMP 96.9; O2SAT 95
== END 2024-09-21 21:15 | DRG 570 ==
LOC: ED 12:29 → MED SURG 16:05 → OBSVTOIN 09-12 05:35
PROVIDERS: ADMIT Internal Medicine; ATTEND Internal Medicine
PROC: 0JB70ZZ Excision of Back Subcutaneous Tissue and Fascia, Open Approach (ICD-10-PCS; principal; 2024-09-13)
PROC: 0D1N0Z4 Bypass Sigmoid Colon to Cutaneous, Open Approach (ICD-10-PCS; 2024-09-18)
DX: L89.300 Pressure ulcer of unspecified buttock, unstageable (principal); U07.1 COVID-19; R78.81 Bacteremia; M62.82 Rhabdomyolysis; E87.6 Hypokalemia; E83.42 Hypomagnesemia; B95.2 Enterococcus as the cause of diseases classified elsewhere; I10 Essential (primary) hypertension; G20.A1 Parkinson's disease without dyskinesia, without mention of fluctuations; E11.65 Type 2 diabetes mellitus with hyperglycemia; D64.9 Anemia, unspecified; E78.5 Hyperlipidemia, unspecified; E66.9 Obesity, unspecified; I25.10 Atherosclerotic heart disease of native coronary artery without angina pectoris; I77.9 Disorder of arteries and arterioles, unspecified; W19.XXXA Unspecified fall, initial encounter; Z93.3 Colostomy status; Z79.899 Other long term (current) drug therapy
CPT/HCPCS: 0241U; 36415; 36430; 36573; 71045; 78452; 80048; 80053; 80202; 81001; 82550; 82607; 82728; 82746; 82947; 83036; 83540; 83550; 83605; 83735; 83880; 84132; 84134; 84145; 85014; 85018; 85025; 85027; 86850; 86900; 86901; 86922; 87040; 87070; 87077; 87086; 87186; 93005; 93015; 93268; 93306; 94760; 96360; 99285; A9502; J0330; J0694; J1100; J1171; J1200; J1650; J1756; J1817; J2270; J2371; J2405; J2704; J2785; J3010; L0625; P9016; Q3014; 97110-GP; A9270-GY; G0378; J3370; J3475

== ENCOUNTER 2025-01-02 20:28 | Observation (INO) | payer MEDICARE ==
[2025-01-02 21:05] LABS: Absolute Neutrophil Ct (ANC) 8.37 x10^3/uL (1.78-5.38); BASOPHIL % 0.2 % (0.2-1.2); Basophil (Absolute #) 0.02 x10^3/uL (0.01-0.08); Eosinophil % 0.5 % (0.8-7.0); Eosinophil (Absolute #) 0.05 x10^3/uL (0.04-0.54); Hematocrit 28.3 % (40.1-51.0); Hemoglobin 9.2 g/dL (13.7-17.5); IMMATURE GRAN # 0.05 x10^3u/L (0.001-0.031); IMMATURE GRAN % 0.5 % (0.001-0.429); Lymphocyte (Absolute #) 1.03 x10^3/uL (1.32-3.57); Mean Cell Volume 84.7 fL (79.0-92.2); Mean Corpuscular Hemoglobin 27.5 pg (25.7-32.2); Mean Corpuscular Hgb Concent. 32.5 g/dL (32.3-36.5); Mean Platelet Volume 9.3 fL (9.4-12.4); Monocyte (Absolute #) 0.74 x10^3/uL (0.30-0.82); Monocytes % 7.2 % (5.3-12.2); Neutrophil % 81.6 % (34.0-67.9); Platelet Count 185 x10^3/uL (163-337); Red Blood Count 3.34 x10^6/uL (4.63-6.08); Red Cell Distribution Width 14.2 % (11.6-14.4); White Blood Count 10.3 x10^3/uL (4.23-9.07)
[2025-01-02 21:21] LABS: ALBUMIN 3.6 g/dL (3.5-5.0); ANION GAP 14.4 MEQ/L (5-15); BILIRUBIN,TOTAL 0.9 mg/dL (0.2-1.3); Calcium 9.1 mg/dL (8.4-10.2); Creatinine 1 0.99 mg/dL (0.66-1.25); EST GLOMERULAR FILTRATION RATE 78.5 ML/MIN; Total Protein 6.2 g/dL (6.3-8.2)
[2025-01-02] MEDS ORDERED: Sodium Chloride 0.9% 1000 ML 1,000 ML ONE (21:21)
[2025-01-02 21:22] LABS: MAGNESIUM 2.1 mg/dL (1.6-2.3)
[2025-01-02] MEDS: Sodium Chloride 0.9% 1000 ML 1,000 ML IV SCH (21:23)
[2025-01-02] MEDS ORDERED: Hydromorphone 1 mg/ml Injection ONE (21:43)
--- NOTE | 2025-01-02 22:27 | ERPHSYRPT ---
- History of Present Illness Time Seen by Provider: 01/02/25 20:30 Source: patient, EMS Patient Subjective Stated Complaint: PT. STATES, "I HAVE FALLEN TWICE THIS WEEK, TODAY I WAS STANDING AT THE KITCHEN COUNTER AND MY LEGS GAVE OUT AND I SLID DOWN TO THE FLOOR. EVERY TIME THEY TAKE ME OFF MY ANTIBIOTICS FOR MY WOUND, THIS HAPPENS." Triage Nursing Assessment: PT. ARRIVES VIA EMS, HE IS A&OX3, SKIN P/W/D, RESP. EVEN UNLABORED, STRONG SMELL OF URINE, 2+ P. EDEMA BLE, Physician History: 79 years old male with history of coronary artery disease, congestive heart failure, hypertension, hyperlipidemia, diabetes mellitus, permanent colostomy, coccyx decubitus ulcer who was recently taken off of antibiotic, was in the kitchen when his legs gave away and slowly slid down. Patient reports he did not hit his head and no loss of consciousness. Although he was so weak that could not get up and someone called law enforcement for welfare check as patient was on the floor for almost 4 hours. Reports having similar kind of fall couple of days ago without head injury. Denies any chest pain palpitations, mild shortness of breath but no fever or chills. No abdominal pain nausea or vomiting reported. Patient reports this happens every time when he has been taken off of antibiotics for his wound. Has chronic lower extremity swelling which is not any worse than usual. Patient report his right knee is bothering him a lot and sometimes gives away. Allergies/Adverse Reactions: No Known Drug Allergies Allergy (Verified 07/21/24 07:00) Home Medications: lisinopriL [Zestril] 20 mg PO DAILY 12/11/15 [History] Atorvastatin Calcium [Lipitor] 80 mg PO QHS 06/09/19 [History] Ezetimibe 10 mg PO QHS 06/09/19 [History] Metformin HCl 500 mg [Glucophage 500 MG] 500 mg PO DAILY 06/09/19 [History] Furosemide 40 mg [Lasix 40 MG] 40 mg PO DAILY 08/14/24 [History] Potassium Chloride 10 meq PO DAILY 08/14/24 [History] Acetaminophen 325 mg [Tylenol 325 mg] 650 mg PO Q6HPRN PRN 09/11/24 [History] Carbidopa/Levodopa [Carbidopa-Levo 25-100 mg Odt] 1 tab PO QID 01/02/25 [History] Hx Tetanus, Diphtheria Vaccination/Date Given: Yes Hx Influenza Vaccination/Date Given: Yes Hx Pneumococcal Vaccination/Date Given: Yes Immunizations Up to Date: Yes Travel Risk - International Travel Have you traveled outside of the country in past 3 weeks: No - Emerging Infectious Disease Are you exhibiting symptoms associated with any current EIDs: No Symptoms: Fever, Rash - Review of Systems Constitutional: Fatigue, Weakness Eyes: No Symptoms Ears, Nose, & Throat: No Symptoms Respiratory: No Symptoms Cardiac: No Symptoms Abdominal/Gastrointestinal: No Symptoms Musculoskeletal: Arthralgias, Fall, Joint Pain Skin: Decubiti, Skin Lesions Neurological: No Symptoms Endocrine: No Symptoms Hematologic/Lymphatic: No Symptoms - Past Medical History Pertinent Past Medical History: Yes Neurological History: Other ENT History: No Pertinent History Cardiac History: High Cholesterol, Hypertension Respiratory History: No Pertinent History Endocrine Medical History: Diabetes Type II Musculoskeletal History: Osteoarthritis, Other GI Medical History: No Pertinent History History: No Pertinent History Psycho-Social History: No Pertinent History Male Reproductive Disorders: No Pertinent History Other Medical History: SX HX; LEFT KNEE REPLACEMENT YEARS AGO, 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 PARKINSON'S DZ. PARKINSON'S - Past Surgical History Past Surgical History: Yes Neuro Surgical History: No Pertinent History Cardiac: No Pertinent History Respiratory: No Pertinent History Gastrointestinal: No Pertinent History Genitourinary: No Pertinent History Musculoskeletal: Amputation, Orthopedic Surgery Other Surgical History: TOTAL CLEFT PALATE REPAIR. , finger amputation,left knee joint replacement - Social History Smoking Status: Never smoker Exposure to second hand smoke: No Drug Use: none - Social Determinants of Health Will the patient participate in the screening: Yes Do you worry about a steady place to live?: No Do you have any problems with any of the following?: No known problems In the past 12 months,have you had to go without utilities?: No Transportation Issues: No Has anyone in your support network made you feel unsafe?: No Have you or anyone in your house had to go w/o enough food: No - Nursing Vital Signs Nursing Vital Signs: Initial Vital Signs Temperature 98.0 F 01/02/25 20:29 Pulse Rate 95 H 01/02/25 20:29 Respiratory Rate 22 01/02/25 20:29 Blood Pressure 118/67 01/02/25 20:29 O2 Sat by Pulse Oximetry 93 L 01/02/25 20:29 Pain Scale Pain Intensity 0 - Physical Exam General Appearance: no apparent distress, alert Eye Exam: PERRL/EOMI Ears, Nose, Throat Exam: normal ENT inspection Neck Exam: normal inspection, supple, full range of motion Respiratory Exam: normal breath sounds, rhonchi Cardiovascular Exam: regular rate/rhythm, normal heart sounds, edema Gastrointestinal/Abdomen Exam: soft, normal bowel sounds, No tenderness Extremity Exam: normal range of motion, pelvis stable Neurologic Exam: alert, oriented x 3, cooperative, buncher hand II-XII nml as tested Skin Exam: normal color SpO2 Interpretation: O2 applied SpO2: 95 O2 Delivery: Nasal Cannula Ordered Tests: Active Orders 24 hr Category Date Time Status EKG-ER Only STAT Care 01/02/25 20:41 Active IV Insertion STAT Care 01/02/25 20:41 Active CHEST 1 VIEW (PORTABLE) Stat Exams 01/02/25 20:41 Taken BLOOD CULTURE Stat Lab 01/02/25 20:59 Received CBC W DIFF Stat Lab 01/02/25 20:55 Completed CK (IN-HOUSE) [CK-Creatinine Phosphokinase] Stat Lab 01/02/25 20:55 Completed CMP Stat Lab 01/02/25 20:55 Completed CULTURE,URINE Stat Lab 01/02/25 22:50 Received LIPASE Stat Lab 01/02/25 20:55 Completed Lactic Acid Stat Lab 01/02/25 20:41 Completed MAG [MAGNESIUM] Stat Lab 01/02/25 20:55 Completed TROPONIN Q4H Lab 01/02/25 20:55 Completed TROPONIN Q4H Lab 01/03/25 00:45 Ordered TROPONIN Q4H Lab 01/03/25 04:45 Ordered UA W/RFX UR CULTURE Stat Lab 01/02/25 22:50 Completed Medication Summary Generic Name Dose Route Start Last Admin Trade Name Freq PRN Reason Stop Dose Admin Sodium Chloride 1,000 mls @ 100 mls/hr 01/02/25 20:45 01/02/25 21:23 Sodium Chloride 0.9% 1000 Ml IV 02/01/25 20:44 100 mls/hr .Q10H CONI Administration Discontinued Medications Generic Name Dose Route Start Last Admin Trade Name Freq PRN Reason Stop Dose Admin Hydromorphone HCl Confirm 01/02/25 21:43 Hydromorphone 1 Mg/1ml Inj Administered 01/02/25 21:44 Dose 1 mg .ROUTE .STK-MED ONE Ceftriaxone Sodium 2 gm in 100 mls @ 200 mls/hr 01/02/25 23:12 01/02/25 23:50 Rocephin 2 Gm/100 Ml Nacl IV 01/02/25 23:41 200 mls/hr STAT ONE 200 mls/hr Administration Ceftriaxone Sodium Confirm 01/02/25 23:41 Rocephin 1 Gm / 100 Ml Nacl Administered 01/02/25 23:42 Dose 1 gm in 100 mls @ ud IV .STK-MED ONE Ceftriaxone Sodium Confirm 01/02/25 23:49 Rocephin 2 Gm/100 Ml Nacl Administered 01/02/25 23:50 Dose 2 gm in 100 mls @ ud IV .STK-MED ONE Lab/Rad Data: Laboratory Result Diagrams 01/02/25 20:55 01/02/25 20:55 Laboratory Results 01/02/25 01/02/25 01/02/25 Range/Units 22:50 20:55 20:55 WBC (4.23-9.07) x10^3/uL RBC (4.63-6.08) x10^6/uL Hgb (13.7-17.5) g/dL Hct (40.1-51.0) % MCV (79.0-92.2) fL MCH (25.7-32.2) pg MCHC (32.3-36.5) g/dL RDW (11.6-14.4) % Plt Count (163-337) x10^3/uL MPV (9.4-12.4) fL Gran % (34.0-67.9) % Immature Gran % (Auto) (0.001-0.429) % Nucleat RBC Rel Count (0.00-0.2) % Eos # (Auto) (0.04-0.54) x10^3/uL Immature Gran # (Auto) (0.001-0.031) x10^3u/L Absolute Lymphs (auto) (1.32-3.57) x10^3/uL Absolute Monos (auto) (0.30-0.82) x10^3/uL Absolute Nucleated RBC (0.00-0.012) x10^3u/L Lymphocytes % (21.8-53.1) % Monocytes % (5.3-12.2) % Eosinophils % (0.8-7.0) % Basophils % (0.2-1.2) % Absolute Granulocytes (1.78-5.38) x10^3/uL Basophils # (0.01-0.08) x10^3/uL Sodium (135-145) mmol/L Potassium (3.5-5.1) mmol/L Chloride (98-107) mmol/L Carbon Dioxide (22-30) mmol/L Anion Gap (5-15) MEQ/L BUN (9-20) mg/dL Creatinine (0.66-1.25) mg/dL Estimated GFR ML/MIN Glucose (74-106) mg/dL Lactic Acid (0.4-2.0) Calcium (8.4-10.2) mg/dL Magnesium 2.1 (1.6-2.3) mg/dL Total Bilirubin (0.2-1.3) mg/dL AST (17-59) U/L ALT (0-50) U/L Alkaline Phosphatase (38-126) U/L Creatine Kinase 410 H (55-170) U/L Troponin I < 0.012 (0.000-0.033) ng/mL Serum Total Protein (6.3-8.2) g/dL Albumin (3.5-5.0) g/dL Lipase (23-300) U/L Urine Color Yellow (Yellow) Urine Appearance Clear (Clear) Urine pH 5.5 (4.6-8.0) Ur Specific [place] 1.015 (1.005-1.030) Urine Protein 30 (Negative) Urine Glucose (UA) Negative (Negative) mg/dL Urine Ketones Negative (Negative) Urine Blood Moderate A (Negative) Urine Nitrite Positive A (Negative) Urine Bilirubin Negative (Negative) Urine Urobilinogen 1.0 A (0.2) mg/dL Ur Leukocyte Esterase Large A (Negative) U Hyaline Cast (Auto) 3-5 A (0-2) /LPF Urine Microscopic RBC 51-100 A (0-5) /HPF Urine Microscopic WBC >100 A (0-5) /HPF Ur Epithelial Cells None Seen (None Seen) /HPF Urine Bacteria Rare A (None Seen) /HPF Urine Culture Reflexed YES (NO) 01/02/25 01/02/25 01/02/25 Range/Units 20:55 20:55 20:41 WBC 10.3 H (4.23-9.07) x10^3/uL RBC 3.34 L (4.63-6.08) x10^6/uL Hgb 9.2 L (13.7-17.5) g/dL Hct 28.3 L (40.1-51.0) % MCV 84.7 (79.0-92.2) fL MCH 27.5 (25.7-32.2) pg MCHC 32.5 (32.3-36.5) g/dL RDW 14.2 (11.6-14.4) % Plt Count 185 (163-337) x10^3/uL MPV 9.3 L (9.4-12.4) fL Gran % 81.6 H (34.0-67.9) % Immature Gran % (Auto) 0.5 H (0.001-0.429) % Nucleat RBC Rel Count 0.0 (0.00-0.2) % Eos # (Auto) 0.05 (0.04-0.54) x10^3/uL Immature Gran # (Auto) 0.05 H (0.001-0.031) x10^3u/L Absolute Lymphs (auto) 1.03 L (1.32-3.57) x10^3/uL Absolute Monos (auto) 0.74 (0.30-0.82) x10^3/uL Absolute Nucleated RBC 0.00 (0.00-0.012) x10^3u/L Lymphocytes % 10.0 L (21.8-53.1) % Monocytes % 7.2 (5.3-12.2) % Eosinophils % 0.5 L (0.8-7.0) % Basophils % 0.2 (0.2-1.2) % Absolute Granulocytes 8.37 H (1.78-5.38) x10^3/uL Basophils # 0.02 (0.01-0.08) x10^3/uL Sodium 134 L (135-145) mmol/L Potassium 4.0 (3.5-5.1) mmol/L Chloride 101 (98-107) mmol/L Carbon Dioxide 23 (22-30) mmol/L Anion Gap 14.4 (5-15) MEQ/L BUN 44 H (9-20) mg/dL Creatinine 0.99 (0.66-1.25) mg/dL Estimated GFR 78.5 ML/MIN Glucose 140 H (74-106) mg/dL Lactic Acid 1.4 (0.4-2.0) Calcium 9.1 (8.4-10.2) mg/dL Magnesium (1.6-2.3) mg/dL Total Bilirubin 0.90 (0.2-1.3) mg/dL AST 27 (17-59) U/L ALT 8 (0-50) U/L Alkaline Phosphatase 113 (38-126) U/L Creatine Kinase (55-170) U/L Troponin I (0.000-0.033) ng/mL Serum Total Protein 6.2 L (6.3-8.2) g/dL Albumin 3.6 (3.5-5.0) g/dL Lipase 66 (23-300) U/L Urine Color (Yellow) Urine Appearance (Clear) Urine pH (4.6-8.0) Ur Specific [place] (1.005-1.030) Urine Protein (Negative) Urine Glucose (UA) (Negative) mg/dL Urine Ketones (Negative) Urine Blood (Negative) Urine Nitrite (Negative) Urine Bilirubin (Negative) Urine Urobilinogen (0.2) mg/dL Ur Leukocyte Esterase (Negative) U Hyaline Cast (Auto) (0-2) /LPF Urine Microscopic RBC (0-5) /HPF Urine Microscopic WBC (0-5) /HPF Ur Epithelial Cells (None Seen) /HPF Urine Bacteria (None Seen) /HPF Urine Culture Reflexed (NO) - Progress Progress: improved, re-examined Progress Note: 01/03/25 00:07 79-year-old with multiple medical problems is evaluated in the ER for ground- level fall, history of recurrent falls without head injury or loss of consciousness where he was unable to get up until had some help. Is given gentle hydration, initially patient was short of breath and was on oxygen but later on it was removed/taken off and saturation is in mid to upper 90s. Chest x-ray no acute cardiopulmonary findings reviewed by me, official final report is pending. Workup showed normal white count, chemistries with normal lactate, normal initial troponin. Has UTI with positive nitrites, leukocyte Estrace and multiple WBCs in urine and given a dose of Rocephin. Patient has an ulcer in the coccyx area which has minimal sloughing and good granulation tissue underneath. Has a CK level only in 400s and will continue with gentle hydration. Discussed with Dr. Tyrese Schmidt, reviewed history, workup and agreed with admission to hospitalist service. I have shared the results of workup with patient and plan of admission which he understands and agrees. Complexity of problem addressed: High acuity Complexity of data reviewed/analyzed: High/extensive Risk of complication: High risk Discussed with .: Chelsea Will see patient in: hospital (observation) Counseled pt/family regarding: lab results, diagnosis, rad results Medical Desision Making - Independent Historian Additional History obtained from: Technical Proposal Writer/EMT - Discussion of managment Care discussed with:: hospitalist Reviewed:: Test results Agreed on:: Treatment plan, place in obs Will see patient: in hospital - Diagnostic Testing Diagnostic test were ordered, analyzed, and reviewed by me: Yes Radiological Interpretation: Interpreted by me, Reviewed by me - Risk of complications The pt has a mod risk of morbidity or mortality based on: Need for prescription drug management The pt has a high risk of morbidity or mortality based on: Decision regarding hospitilization or escalation of hosp level of care - Departure Departure Disposition: Observation Clinical Impression: Generalized weakness, Acute UTI (urinary tract infection), Fall Condition: Stable Critical Care Time: No Referrals: LENA DUGGAN MD [Primary Care Provider, [facility]] - Follow up/PCP as directed
[2025-01-02 23:03] LABS: Appearance Clear (Clear); Bacteria Rare /HPF (None Seen); Bilirubin Negative (Negative); Blood Moderate (Negative); Epithelial Cells None Seen /HPF (None Seen); Glucose, Urine Negative (Negative); Ketones Negative (Negative); Leukocyte Esterase Large (Negative); Nitrite Positive (Negative); Ph 5.5 (4.6-8.0); Protein,Urine Dip 30 (Negative); RBC 51-100 /HPF (0-5); Specific Gravity 1.015 (1.005-1.030); WBC >100 /HPF (0-5)
[2025-01-02] MEDS ORDERED: ROCEPHIN 1 GM / 100 ML NaCl 0 GM/0 ML IVPB IV ONE (23:41)
[2025-01-02] MEDS ORDERED: ROCEPHIN 2 GM/100 ML NACL 2 GM/100 ML IVPB IV ONE (23:49)
[2025-01-02] MEDS: ROCEPHIN 2 GM/100 ML NACL 2 GM/100 ML IVPB IV ONE (23:50)
[2025-01-03] MEDS ORDERED: SUBLIMAZE 100 MCG/2 ML ONE (00:25)
[2025-01-03] MEDS ORDERED: Zofran 4 MG/2 ML VIAL ONE (00:25)
[2025-01-03] MEDS: Zofran 4 MG/2 ML VIAL IV ONE (00:29)
[2025-01-03] MEDS: SUBLIMAZE 100 MCG/2 ML IV ONE (00:29)
--- NOTE | 2025-01-03 03:11 | PCM.HP ---
History of Present Illness - Chief Complaint Chief Complaint: falls, weakness Date: 01/03/25 History of Present Illness: 79-year-old man with history of Parkinson's disease, hypertension, diabetes, and poorly healing sacral decubitus ulcer, who presents with generalized weakness and falls. The patient notes that he has been dealing with a sacral ulcer since July, and every time that he stops his antibiotics, he feels generalized weakness afterwards. He most recently completed a course of antibiotics for his sacral run about 10 to 14 days ago. Prior to that point, he was walking independently, but for the last two weeks he has been getting progressively weaker. One week ago, he required walking with a cane, but now he requires walking with a rolling walker. This evening, he was in the bathroom trying to use a toilet when he again felt that his legs gave way. He slowly slid down, but did not hit his head or anything sharply. However, he could not get up on his own, and was on the floor for about four hours. He notes that he has had some dysuria, as well as darker-colored urine. He denies any fevers, headaches, chest pain, dyspnea, nausea, or change in output in his ostomy. - Review of Systems All Other Systems: Reviewed and Negative Medications & Allergies Home Medications: Home Medication List lisinopriL [Zestril] 20 mg PO DAILY 12/11/15 [History Confirmed 01/02/25] Atorvastatin Calcium [Lipitor] 80 mg PO QHS 06/09/19 [History Confirmed 01/02/25] Ezetimibe 10 mg PO QHS 06/09/19 [History Confirmed 01/02/25] Metformin HCl 500 mg [Glucophage 500 MG] 500 mg PO DAILY 06/09/19 [History Confirmed 01/02/25] Furosemide 40 mg [Lasix 40 MG] 40 mg PO DAILY 08/14/24 [History Confirmed 01/02/25] Potassium Chloride 10 meq PO DAILY 08/14/24 [History Confirmed 01/02/25] Acetaminophen 325 mg [Tylenol 325 mg] 650 mg PO Q6HPRN PRN 09/11/24 [History Confirmed 01/02/25] Hydrocodone/Acetaminophen [[place] 10-325 mg] 1 tab PO Q6HPRN PRN 3 Days #12 tablet MDD 4 09/21/24 [Rx Confirmed 01/02/25] Carbidopa/Levodopa [Carbidopa-Levo 25-100 mg Odt] 1 tab PO QID 01/02/25 [History Confirmed 01/02/25] Allergies/Adverse Reactions: Allergies Allergy/AdvReac Type Severity Reaction Status Date / Time No Known Drug Allergies Allergy Verified 07/21/24 07:00 - Past Medical History Past Medical History: Yes Neurological History: Other ENT History: No Pertinent History Cardiac History: High Cholesterol, Hypertension Respiratory History: No Pertinent History Endocrine Medical History: Diabetes Type II Musculoskelatal History: Osteoarthritis, Other GI Medical History: No Pertinent History History: No Pertinent History Pyscho-Social History: No Pertinent History Male Reproductive Disorders: No Pertinent History Comment: SX HX; LEFT KNEE REPLACEMENT YEARS AGO, 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 PARKINSON'S DZ. PARKINSON'S - Past Surgical History Past Surgical History: Yes Neuro Surgical History: No Pertinent History Cardiac History: No Pertinent History Respiratory Surgery: No Pertinent History GI Surgical History: No Pertinent History Genitourinary Surgical Hx: No Pertinent History Musculskeletal Surgical Hx: Amputation, Orthopedic Surgery Other Surgical History: TOTAL CLEFT PALATE REPAIR. , finger amputation,left knee joint replacement Significant Family History: no pertinent family hx - Social History Smoking Status: Never smoker Exposure to second hand smoke: No Alcohol: None Drug Use: none - Social Determinants of Health Will the patient participate in the screening: Yes Do you worry about a steady place to live?: No Do you have any problems with any of the following?: No known problems In the past 12 months,have you had to go without utilities?: No Have you or anyone in your house had to go without enough: No Transportation Issues: No Has anyone in your support network made you feel unsafe?: No Does the patient want assistance with any of the above?: No - Physical Exam Vital Signs: Vital Signs - 24 hr Temp Pulse Resp BP BP Pulse Ox 01/03/25 02:35 98.2 F 97 H 22 96/46 95 01/03/25 00:12 95 01/03/25 00:00 97 H 14 118/65 96 01/02/25 23:31 93 H 21 114/56 96 01/02/25 23:00 97 H 21 95/53 96 01/02/25 22:30 86 21 108/59 96 01/02/25 22:00 96 H 18 124/64 95 01/02/25 21:30 18 105/62 69 L 01/02/25 21:04 93 H 19 113/64 92 L 01/02/25 21:03 24 97 01/02/25 21:00 98 H 46 H 01/02/25 20:50 106 H 18 01/02/25 20:40 99 H 21 93 L 01/02/25 20:35 101 H 25 H 102/64 95 01/02/25 20:29 98.0 F 95 H 22 118/67 93 L Physical exam GENERAL: lying in bed in no acute distress. HEENT: Normocephalic, atraumatic. Moist mucous membranes. EYES: Normal inspection, anicteric sclera, extraocular movements intact. NECK: Supple, full range of motion CV: Regular rate and rhythm, no murmurs, no gallops. No JVD or edema. PULM: clear to auscultation bilaterally, no work of breathing. On room air. ABD: Nondistended, nontender. colostomy with soft formed brown stool. MSK: No joint effusions, full range of motion. SKIN: No rashes, normal color. NEURO: Face symmetric, no focal motor or sensory deficits. Mild resting tremor in the right arm. PSYCH: Alert, oriented x3 Wound Assessment: Skin/Wound Assessment Wound/Incision Assessment Start: 01/03/25 00:05 Text: Status: Active Freq: Protocol: Document 01/03/25 00:09 LB (Rec: 01/03/25 00:11 LB [id number]) Wound Assessment Sacrum Wound Type Incision Dressing Status Changed Drainage Amount Minimal Drainage Description Serosanguineous Drainage Odor None/Absent General Appearance Draining,Unapproximated Length (cm) 7 Width (cm) 9 Depth (cm) 0.3 Wound Bed Greatest Portion Yellow (Slough) Wound Bed Lesser Portion Red (Granulation) Surrounding Tissue [place] Topical Solution/Irrigant Saline Irrigant Packing Type Gauze Pads Primary Dressing Gauze Pads Secondary Dressing Absorbant Pad Results - Labs Lab/Micro Results: Lab Results-Last 24 Hours 01/02/25 01/02/25 01/02/25 Range/Units 20:41 20:55 20:55 WBC 10.3 H (4.23-9.07) x10^3/uL RBC 3.34 L (4.63-6.08) x10^6/uL Hgb 9.2 L (13.7-17.5) g/dL Hct 28.3 L (40.1-51.0) % MCV 84.7 (79.0-92.2) fL MCH 27.5 (25.7-32.2) pg MCHC 32.5 (32.3-36.5) g/dL RDW 14.2 (11.6-14.4) % Plt Count 185 (163-337) x10^3/uL MPV 9.3 L (9.4-12.4) fL Gran % 81.6 H (34.0-67.9) % Immature Gran % (Auto) 0.5 H (0.001-0.429) % Nucleat RBC Rel Count 0.0 (0.00-0.2) % Eos # (Auto) 0.05 (0.04-0.54) x10^3/uL Immature Gran # (Auto) 0.05 H (0.001-0.031) x10^3u/L Absolute Lymphs (auto) 1.03 L (1.32-3.57) x10^3/uL Absolute Monos (auto) 0.74 (0.30-0.82) x10^3/uL Absolute Nucleated RBC 0.00 (0.00-0.012) x10^3u/L Lymphocytes % 10.0 L (21.8-53.1) % Monocytes % 7.2 (5.3-12.2) % Eosinophils % 0.5 L (0.8-7.0) % Basophils % 0.2 (0.2-1.2) % Absolute Granulocytes 8.37 H (1.78-5.38) x10^3/uL Basophils # 0.02 (0.01-0.08) x10^3/uL Sodium 134 L (135-145) mmol/L Potassium 4.0 (3.5-5.1) mmol/L Chloride 101 (98-107) mmol/L Carbon Dioxide 23 (22-30) mmol/L Anion Gap 14.4 (5-15) MEQ/L BUN 44 H (9-20) mg/dL Creatinine 0.99 (0.66-1.25) mg/dL Estimated GFR 78.5 ML/MIN Glucose 140 H (74-106) mg/dL Lactic Acid 1.4 (0.4-2.0) Calcium 9.1 (8.4-10.2) mg/dL Magnesium (1.6-2.3) mg/dL Total Bilirubin 0.90 (0.2-1.3) mg/dL AST 27 (17-59) U/L ALT 8 (0-50) U/L Alkaline Phosphatase 113 (38-126) U/L Creatine Kinase (55-170) U/L Troponin I (0.000-0.033) ng/mL Serum Total Protein 6.2 L (6.3-8.2) g/dL Albumin 3.6 (3.5-5.0) g/dL Lipase 66 (23-300) U/L Urine Color (Yellow) Urine Appearance (Clear) Urine pH (4.6-8.0) Ur Specific [place] (1.005-1.030) Urine Protein (Negative) Urine Glucose (UA) (Negative) mg/dL Urine Ketones (Negative) Urine Blood (Negative) Urine Nitrite (Negative) Urine Bilirubin (Negative) Urine Urobilinogen (0.2) mg/dL Ur Leukocyte Esterase (Negative) U Hyaline Cast (Auto) (0-2) /LPF Urine Microscopic RBC (0-5) /HPF Urine Microscopic WBC (0-5) /HPF Ur Epithelial Cells (None Seen) /HPF Urine Bacteria (None Seen) /HPF Urine Culture Reflexed (NO) 01/02/25 01/02/25 01/02/25 Range/Units 20:55 20:55 22:50 WBC (4.23-9.07) x10^3/uL RBC (4.63-6.08) x10^6/uL Hgb (13.7-17.5) g/dL Hct (40.1-51.0) % MCV (79.0-92.2) fL MCH (25.7-32.2) pg MCHC (32.3-36.5) g/dL RDW (11.6-14.4) % Plt Count (163-337) x10^3/uL MPV (9.4-12.4) fL Gran % (34.0-67.9) % Immature Gran % (Auto) (0.001-0.429) % Nucleat RBC Rel Count (0.00-0.2) % Eos # (Auto) (0.04-0.54) x10^3/uL Immature Gran # (Auto) (0.001-0.031) x10^3u/L Absolute Lymphs (auto) (1.32-3.57) x10^3/uL Absolute Monos (auto) (0.30-0.82) x10^3/uL Absolute Nucleated RBC (0.00-0.012) x10^3u/L Lymphocytes % (21.8-53.1) % Monocytes % (5.3-12.2) % Eosinophils % (0.8-7.0) % Basophils % (0.2-1.2) % Absolute Granulocytes (1.78-5.38) x10^3/uL Basophils # (0.01-0.08) x10^3/uL Sodium (135-145) mmol/L Potassium (3.5-5.1) mmol/L Chloride (98-107) mmol/L Carbon Dioxide (22-30) mmol/L Anion Gap (5-15) MEQ/L BUN (9-20) mg/dL Creatinine (0.66-1.25) mg/dL Estimated GFR ML/MIN Glucose (74-106) mg/dL Lactic Acid (0.4-2.0) Calcium (8.4-10.2) mg/dL Magnesium 2.1 (1.6-2.3) mg/dL Total Bilirubin (0.2-1.3) mg/dL AST (17-59) U/L ALT (0-50) U/L Alkaline Phosphatase (38-126) U/L Creatine Kinase 410 H (55-170) U/L Troponin I < 0.012 (0.000-0.033) ng/mL Serum Total Protein (6.3-8.2) g/dL Albumin (3.5-5.0) g/dL Lipase (23-300) U/L Urine Color Yellow (Yellow) Urine Appearance Clear (Clear) Urine pH 5.5 (4.6-8.0) Ur Specific [place] 1.015 (1.005-1.030) Urine Protein 30 (Negative) Urine Glucose (UA) Negative (Negative) mg/dL Urine Ketones Negative (Negative) Urine Blood Moderate A (Negative) Urine Nitrite Positive A (Negative) Urine Bilirubin Negative (Negative) Urine Urobilinogen 1.0 A (0.2) mg/dL Ur Leukocyte Esterase Large A (Negative) U Hyaline Cast (Auto) 3-5 A (0-2) /LPF Urine Microscopic RBC 51-100 A (0-5) /HPF Urine Microscopic WBC >100 A (0-5) /HPF Ur Epithelial Cells None Seen (None Seen) /HPF Urine Bacteria Rare A (None Seen) /HPF Urine Culture Reflexed YES (NO) 01/03/25 Range/Units 00:50 WBC (4.23-9.07) x10^3/uL RBC (4.63-6.08) x10^6/uL Hgb (13.7-17.5) g/dL Hct (40.1-51.0) % MCV (79.0-92.2) fL MCH (25.7-32.2) pg MCHC (32.3-36.5) g/dL RDW (11.6-14.4) % Plt Count (163-337) x10^3/uL MPV (9.4-12.4) fL Gran % (34.0-67.9) % Immature Gran % (Auto) (0.001-0.429) % Nucleat RBC Rel Count (0.00-0.2) % Eos # (Auto) (0.04-0.54) x10^3/uL Immature Gran # (Auto) (0.001-0.031) x10^3u/L Absolute Lymphs (auto) (1.32-3.57) x10^3/uL Absolute Monos (auto) (0.30-0.82) x10^3/uL Absolute Nucleated RBC (0.00-0.012) x10^3u/L Lymphocytes % (21.8-53.1) % Monocytes % (5.3-12.2) % Eosinophils % (0.8-7.0) % Basophils % (0.2-1.2) % Absolute Granulocytes (1.78-5.38) x10^3/uL Basophils # (0.01-0.08) x10^3/uL Sodium (135-145) mmol/L Potassium (3.5-5.1) mmol/L Chloride (98-107) mmol/L Carbon Dioxide (22-30) mmol/L Anion Gap (5-15) MEQ/L BUN (9-20) mg/dL Creatinine (0.66-1.25) mg/dL Estimated GFR ML/MIN Glucose (74-106) mg/dL Lactic Acid (0.4-2.0) Calcium (8.4-10.2) mg/dL Magnesium (1.6-2.3) mg/dL Total Bilirubin (0.2-1.3) mg/dL AST (17-59) U/L ALT (0-50) U/L Alkaline Phosphatase (38-126) U/L Creatine Kinase (55-170) U/L Troponin I < 0.012 (0.000-0.033) ng/mL Serum Total Protein (6.3-8.2) g/dL Albumin (3.5-5.0) g/dL Lipase (23-300) U/L Urine Color (Yellow) Urine Appearance (Clear) Urine pH (4.6-8.0) Ur Specific [place] (1.005-1.030) Urine Protein (Negative) Urine Glucose (UA) (Negative) mg/dL Urine Ketones (Negative) Urine Blood (Negative) Urine Nitrite (Negative) Urine Bilirubin (Negative) Urine Urobilinogen (0.2) mg/dL Ur Leukocyte Esterase (Negative) U Hyaline Cast (Auto) (0-2) /LPF Urine Microscopic RBC (0-5) /HPF Urine Microscopic WBC (0-5) /HPF Ur Epithelial Cells (None Seen) /HPF Urine Bacteria (None Seen) /HPF Urine Culture Reflexed (NO) - Radiology Impressions Radiology Exams & Impressions: Radiology Procedures Category Date Time Status CHEST 1 VIEW (PORTABLE) Stat Exams 01/02/25 20:41 Taken Chest x-ray - low lung volumes due to technique, with some accompanying bronchovascular crowding. However, no consolidation. (Images personally reviewed.) Assessment/Plan (1) Acute UTI (urinary tract infection) Current Visit: Yes Status: Acute Assessment & Plan: 79-year-old man with history of Parkinson's disease, hypertension, diabetes, and sacral decubitus ulcer, here with generalized weakness and found to have acute cystitis. ## Acute cystitis - supported by severe pyuria on UA, as well as dysuria and increased dark color of his urine. - Follow-up urine cultures - start Rocephin 1 g IV q 24 hours ## generalized weakness - Patient notes this happens whenever he stops his antibiotics for his sacral wound. However, per report, his sacral wound has been improving without signs of infection. Given evidence of likely new infectious source with his UTI, would want to treat that first before assuming any further issues with wound infection. - Treat UTI as above - PT evaluation ## type 2 diabetes - only on metformin at home. Last hemoglobin A1c was 6.3 last month. - Start on moderate dose sliding scale insulin - Diabetic diet ## hypertension - Blood pressure overall controlled. - Resume home lisinopril 20 mg daily ## Parkinson's disease - Resume Carbidopa 1 tab 4 times daily Code status: DNR Prophylaxis: Lovenox 40 daily Diet: Diabetic Dispo: Place in observation Entirety of encounter took place via live audio/video telemedicine device, with remote physician and patient in hospital, with the assistance of the bedside nurse. Tyrese Schmidt MD Telemedicine Hospitalist [facility] 01/03/2025 3:18 AM Code(s): N39.0 - URINARY TRACT INFECTION, SITE NOT SPECIFIED Telemedicine Encounter - Telemedicine Encounter Telemedicine Encounter: "The entirety of this encounter was performed via Telemedicine" This visit was performed using real-time audio and video connection between my location and thepatients locationwith the assistance of a surrogateat the patients location. Written or verbal consent was obtained from the patient/guardian to perform this visit [facility]. Any patient questions regarding the telemedicine interaction were answered.
[2025-01-03 05:49] LABS: Hematocrit 25.5 % (40.1-51.0); Hemoglobin 8.1 g/dL (13.7-17.5); Mean Cell Volume 85.9 fL (79.0-92.2); Mean Corpuscular Hemoglobin 27.3 pg (25.7-32.2); Mean Corpuscular Hgb Concent. 31.8 g/dL (32.3-36.5); Mean Platelet Volume 9.8 fL (9.4-12.4); Platelet Count 171 x10^3/uL (163-337); Red Blood Count 2.97 x10^6/uL (4.63-6.08); Red Cell Distribution Width 14.3 % (11.6-14.4); White Blood Count 8.4 x10^3/uL (4.23-9.07)
[2025-01-03 06:54] LABS: ANION GAP 13.2 MEQ/L (5-15); Calcium 8.7 mg/dL (8.4-10.2); Creatinine 1 0.87 mg/dL (0.66-1.25); EST GLOMERULAR FILTRATION RATE 88.9 ML/MIN; PREALBUMIN 7.48 mg/dL (17.6-36.0)
[2025-01-03] MEDS: TYLENOL 325 MG PO PRN (06:56)
[2025-01-03 07:53] VITALS: RESP 17
--- NOTE | 2025-01-03 08:59 | XRAY ---
Indication: Weakness. Fall. Comparison: September 17, 2024 Portable chest again demonstrates mild left base infiltrate/atelectasis/effusion. Right lung clear. Heart not enlarged. Bony thorax intact again with osteopenia and degenerative changes.
[2025-01-03] MEDS ORDERED: NON-FORMULARY ITEM (Carbidopa/Levodopa [Carbidopa-Levo 25-100 Mg Odt] 1 EACH Tab.Rapdis) PO SCH (10:00)
[2025-01-03] MEDS: Klor Con PO SCH (10:16)
[2025-01-03] MEDS: Zestril 20 MG PO SCH (10:16)
[2025-01-03] MEDS: Sinemet 25/100 MG PO SCH (10:16)
[2025-01-03] MEDS: Lasix 40 MG PO SCH (10:17)
[2025-01-03] MEDS: NORCO 10-325 MG PO PRN (10:17)
[2025-01-03] MEDS: ENOXAPARIN SODIUM SQ SCH (10:18)
[2025-01-03] MEDS: HUMALOG SQ PRN (12:13)
[2025-01-03 12:32] VITALS: BP 129/57; PULSE 77; TEMP 98; O2SAT 91
--- NOTE | 2025-01-03 13:41 | PCM.DS ---
Discharge Summary Date of Admission: 01/03/25 02:32 Date of Discharge: 01/03/25 Admitting Physician: DEDRICK MATHEW MD Primary Care Provider: LENA DUGGAN Allergies Allergies No Known Drug Allergies Allergy (Verified 07/21/24 07:00) Hospital Summary - Hospital Course Hospital Course: Mr. Lorenz is a 79-year-old man with history of Parkinson's disease, hypertension, diabetes, and poorly healing sacral decubitus ulcer. He presented last night to the ER with generalized weakness and falls. The patient notes that he has been dealing with a sacral ulcer since July, and every time that he stops his antibiotics, he feels generalized weakness afterwards. He most recently completed a course of antibiotics for his sacral run about 10 to 14 days ago. Prior to that point, he was walking independently, but for the last two weeks he has been getting progressively weaker. One week ago, he required walking with a cane, but now he requires walking with a rolling walker. This evening, he was in the bathroom trying to use a toilet when he again felt that his legs gave way. He slowly slid down, but did not hit his head or anything sharply. However, he could not get up on his own, and was on the floor for about four hours. He notes that he has had some dysuria, as well as darker-colored urine. He denies any fevers, headaches, chest pain, dyspnea, nausea, or change in output in his ostomy. Urine culture negative. He has HHC and PT to eval for home needs. Labs overall non-concerning. He follows Dr. Koenig and the [facility] wound center weekly. He denies any further concerns at this time. - Vitals & Intake/Output Vital Signs: Vital Signs Temperature 98 F 01/03/25 12:00 Pulse Rate 77 01/03/25 12:00 Respiratory Rate 17 01/03/25 12:00 Blood Pressure 129/57 01/03/25 12:00 O2 Sat by Pulse Oximetry 91 L 01/03/25 12:00 Intake & Output: Intake & Output 01/01/25 01/02/25 01/03/25 01/04/25 11:59 11:59 11:59 11:59 Intake Total 720 120 Output Total 800 175 Balance -80 -55 Weight 107.6 kg - Lab Result Diagrams: 01/03/25 04:30 01/03/25 04:30 Lab Results-Last 24 Hrs: Lab Results-Last 24 Hours 01/02/25 01/02/25 01/02/25 Range/Units 20:41 20:55 20:55 WBC 10.3 H (4.23-9.07) x10^3/uL RBC 3.34 L (4.63-6.08) x10^6/uL Hgb 9.2 L (13.7-17.5) g/dL Hct 28.3 L (40.1-51.0) % MCV 84.7 (79.0-92.2) fL MCH 27.5 (25.7-32.2) pg MCHC 32.5 (32.3-36.5) g/dL RDW 14.2 (11.6-14.4) % Plt Count 185 (163-337) x10^3/uL MPV 9.3 L (9.4-12.4) fL Gran % 81.6 H (34.0-67.9) % Immature Gran % (Auto) 0.5 H (0.001-0.429) % Nucleat RBC Rel Count 0.0 (0.00-0.2) % Eos # (Auto) 0.05 (0.04-0.54) x10^3/uL Immature Gran # (Auto) 0.05 H (0.001-0.031) x10^3u/L Absolute Lymphs (auto) 1.03 L (1.32-3.57) x10^3/uL Absolute Monos (auto) 0.74 (0.30-0.82) x10^3/uL Absolute Nucleated RBC 0.00 (0.00-0.012) x10^3u/L Lymphocytes % 10.0 L (21.8-53.1) % Monocytes % 7.2 (5.3-12.2) % Eosinophils % 0.5 L (0.8-7.0) % Basophils % 0.2 (0.2-1.2) % Absolute Granulocytes 8.37 H (1.78-5.38) x10^3/uL Basophils # 0.02 (0.01-0.08) x10^3/uL Sodium 134 L (135-145) mmol/L Potassium 4.0 (3.5-5.1) mmol/L Chloride 101 (98-107) mmol/L Carbon Dioxide 23 (22-30) mmol/L Anion Gap 14.4 (5-15) MEQ/L BUN 44 H (9-20) mg/dL Creatinine 0.99 (0.66-1.25) mg/dL Estimated GFR 78.5 ML/MIN Glucose 140 H (74-106) mg/dL POC Glucometer (74 to 106) mg/dL Lactic Acid 1.4 (0.4-2.0) Calcium 9.1 (8.4-10.2) mg/dL Magnesium (1.6-2.3) mg/dL Total Bilirubin 0.90 (0.2-1.3) mg/dL AST 27 (17-59) U/L ALT 8 (0-50) U/L Alkaline Phosphatase 113 (38-126) U/L Creatine Kinase (55-170) U/L Troponin I (0.000-0.033) ng/mL Serum Total Protein 6.2 L (6.3-8.2) g/dL Albumin 3.6 (3.5-5.0) g/dL Prealbumin (17.6-36.0) mg/dL Lipase 66 (23-300) U/L Procalcitonin (0.030-0.080) ng/mL Urine Color (Yellow) Urine Appearance (Clear) Urine pH (4.6-8.0) Ur Specific [place] (1.005-1.030) Urine Protein (Negative) Urine Glucose (UA) (Negative) mg/dL Urine Ketones (Negative) Urine Blood (Negative) Urine Nitrite (Negative) Urine Bilirubin (Negative) Urine Urobilinogen (0.2) mg/dL Ur Leukocyte Esterase (Negative) U Hyaline Cast (Auto) (0-2) /LPF Urine Microscopic RBC (0-5) /HPF Urine Microscopic WBC (0-5) /HPF Ur Epithelial Cells (None Seen) /HPF Urine Bacteria (None Seen) /HPF Urine Culture Reflexed (NO) 01/02/25 01/02/25 01/02/25 Range/Units 20:55 20:55 22:50 WBC (4.23-9.07) x10^3/uL RBC (4.63-6.08) x10^6/uL Hgb (13.7-17.5) g/dL Hct (40.1-51.0) % MCV (79.0-92.2) fL MCH (25.7-32.2) pg MCHC (32.3-36.5) g/dL RDW (11.6-14.4) % Plt Count (163-337) x10^3/uL MPV (9.4-12.4) fL Gran % (34.0-67.9) % Immature Gran % (Auto) (0.001-0.429) % Nucleat RBC Rel Count (0.00-0.2) % Eos # (Auto) (0.04-0.54) x10^3/uL Immature Gran # (Auto) (0.001-0.031) x10^3u/L Absolute Lymphs (auto) (1.32-3.57) x10^3/uL Absolute Monos (auto) (0.30-0.82) x10^3/uL Absolute Nucleated RBC (0.00-0.012) x10^3u/L Lymphocytes % (21.8-53.1) % Monocytes % (5.3-12.2) % Eosinophils % (0.8-7.0) % Basophils % (0.2-1.2) % Absolute Granulocytes (1.78-5.38) x10^3/uL Basophils # (0.01-0.08) x10^3/uL Sodium (135-145) mmol/L Potassium (3.5-5.1) mmol/L Chloride (98-107) mmol/L Carbon Dioxide (22-30) mmol/L Anion Gap (5-15) MEQ/L BUN (9-20) mg/dL Creatinine (0.66-1.25) mg/dL Estimated GFR ML/MIN Glucose (74-106) mg/dL POC Glucometer (74 to 106) mg/dL Lactic Acid (0.4-2.0) Calcium (8.4-10.2) mg/dL Magnesium 2.1 (1.6-2.3) mg/dL Total Bilirubin (0.2-1.3) mg/dL AST (17-59) U/L ALT (0-50) U/L Alkaline Phosphatase (38-126) U/L Creatine Kinase 410 H (55-170) U/L Troponin I < 0.012 (0.000-0.033) ng/mL Serum Total Protein (6.3-8.2) g/dL Albumin (3.5-5.0) g/dL Prealbumin (17.6-36.0) mg/dL Lipase (23-300) U/L Procalcitonin (0.030-0.080) ng/mL Urine Color Yellow (Yellow) Urine Appearance Clear (Clear) Urine pH 5.5 (4.6-8.0) Ur Specific [place] 1.015 (1.005-1.030) Urine Protein 30 (Negative) Urine Glucose (UA) Negative (Negative) mg/dL Urine Ketones Negative (Negative) Urine Blood Moderate A (Negative) Urine Nitrite Positive A (Negative) Urine Bilirubin Negative (Negative) Urine Urobilinogen 1.0 A (0.2) mg/dL Ur Leukocyte Esterase Large A (Negative) U Hyaline Cast (Auto) 3-5 A (0-2) /LPF Urine Microscopic RBC 51-100 A (0-5) /HPF Urine Microscopic WBC >100 A (0-5) /HPF Ur Epithelial Cells None Seen (None Seen) /HPF Urine Bacteria Rare A (None Seen) /HPF Urine Culture Reflexed YES (NO) 01/03/25 01/03/25 01/03/25 Range/Units 00:50 04:30 04:30 WBC 8.4 (4.23-9.07) x10^3/uL RBC 2.97 L (4.63-6.08) x10^6/uL Hgb 8.1 L (13.7-17.5) g/dL Hct 25.5 L (40.1-51.0) % MCV 85.9 (79.0-92.2) fL MCH 27.3 (25.7-32.2) pg MCHC 31.8 L (32.3-36.5) g/dL RDW 14.3 (11.6-14.4) % Plt Count 171 (163-337) x10^3/uL MPV 9.8 (9.4-12.4) fL Gran % (34.0-67.9) % Immature Gran % (Auto) (0.001-0.429) % Nucleat RBC Rel Count (0.00-0.2) % Eos # (Auto) (0.04-0.54) x10^3/uL Immature Gran # (Auto) (0.001-0.031) x10^3u/L Absolute Lymphs (auto) (1.32-3.57) x10^3/uL Absolute Monos (auto) (0.30-0.82) x10^3/uL Absolute Nucleated RBC (0.00-0.012) x10^3u/L Lymphocytes % (21.8-53.1) % Monocytes % (5.3-12.2) % Eosinophils % (0.8-7.0) % Basophils % (0.2-1.2) % Absolute Granulocytes (1.78-5.38) x10^3/uL Basophils # (0.01-0.08) x10^3/uL Sodium 135 (135-145) mmol/L Potassium 4.0 (3.5-5.1) mmol/L Chloride 101 (98-107) mmol/L Carbon Dioxide 25 (22-30) mmol/L Anion Gap 13.2 (5-15) MEQ/L BUN 37 H (9-20) mg/dL Creatinine 0.87 (0.66-1.25) mg/dL Estimated GFR 88.9 ML/MIN Glucose 177 H (74-106) mg/dL POC Glucometer (74 to 106) mg/dL Lactic Acid (0.4-2.0) Calcium 8.7 (8.4-10.2) mg/dL Magnesium (1.6-2.3) mg/dL Total Bilirubin (0.2-1.3) mg/dL AST (17-59) U/L ALT (0-50) U/L Alkaline Phosphatase (38-126) U/L Creatine Kinase (55-170) U/L Troponin I < 0.012 (0.000-0.033) ng/mL Serum Total Protein (6.3-8.2) g/dL Albumin (3.5-5.0) g/dL Prealbumin 7.48 L (17.6-36.0) mg/dL Lipase (23-300) U/L Procalcitonin (0.030-0.080) ng/mL Urine Color (Yellow) Urine Appearance (Clear) Urine pH (4.6-8.0) Ur Specific [place] (1.005-1.030) Urine Protein (Negative) Urine Glucose (UA) (Negative) mg/dL Urine Ketones (Negative) Urine Blood (Negative) Urine Nitrite (Negative) Urine Bilirubin (Negative) Urine Urobilinogen (0.2) mg/dL Ur Leukocyte Esterase (Negative) U Hyaline Cast (Auto) (0-2) /LPF Urine Microscopic RBC (0-5) /HPF Urine Microscopic WBC (0-5) /HPF Ur Epithelial Cells (None Seen) /HPF Urine Bacteria (None Seen) /HPF Urine Culture Reflexed (NO) 01/03/25 01/03/25 01/03/25 Range/Units 04:30 07:27 07:57 WBC (4.23-9.07) x10^3/uL RBC (4.63-6.08) x10^6/uL Hgb (13.7-17.5) g/dL Hct (40.1-51.0) % MCV (79.0-92.2) fL MCH (25.7-32.2) pg MCHC (32.3-36.5) g/dL RDW (11.6-14.4) % Plt Count (163-337) x10^3/uL MPV (9.4-12.4) fL Gran % (34.0-67.9) % Immature Gran % (Auto) (0.001-0.429) % Nucleat RBC Rel Count (0.00-0.2) % Eos # (Auto) (0.04-0.54) x10^3/uL Immature Gran # (Auto) (0.001-0.031) x10^3u/L Absolute Lymphs (auto) (1.32-3.57) x10^3/uL Absolute Monos (auto) (0.30-0.82) x10^3/uL Absolute Nucleated RBC (0.00-0.012) x10^3u/L Lymphocytes % (21.8-53.1) % Monocytes % (5.3-12.2) % Eosinophils % (0.8-7.0) % Basophils % (0.2-1.2) % Absolute Granulocytes (1.78-5.38) x10^3/uL Basophils # (0.01-0.08) x10^3/uL Sodium (135-145) mmol/L Potassium (3.5-5.1) mmol/L Chloride (98-107) mmol/L Carbon Dioxide (22-30) mmol/L Anion Gap (5-15) MEQ/L BUN (9-20) mg/dL Creatinine (0.66-1.25) mg/dL Estimated GFR ML/MIN Glucose (74-106) mg/dL POC Glucometer 111 H (74 to 106) mg/dL Lactic Acid (0.4-2.0) Calcium (8.4-10.2) mg/dL Magnesium (1.6-2.3) mg/dL Total Bilirubin (0.2-1.3) mg/dL AST (17-59) U/L ALT (0-50) U/L Alkaline Phosphatase (38-126) U/L Creatine Kinase 511 H (55-170) U/L Troponin I (0.000-0.033) ng/mL Serum Total Protein (6.3-8.2) g/dL Albumin (3.5-5.0) g/dL Prealbumin (17.6-36.0) mg/dL Lipase (23-300) U/L Procalcitonin 0.139 H (0.030-0.080) ng/mL Urine Color (Yellow) Urine Appearance (Clear) Urine pH (4.6-8.0) Ur Specific [place] (1.005-1.030) Urine Protein (Negative) Urine Glucose (UA) (Negative) mg/dL Urine Ketones (Negative) Urine Blood (Negative) Urine Nitrite (Negative) Urine Bilirubin (Negative) Urine Urobilinogen (0.2) mg/dL Ur Leukocyte Esterase (Negative) U Hyaline Cast (Auto) (0-2) /LPF Urine Microscopic RBC (0-5) /HPF Urine Microscopic WBC (0-5) /HPF Ur Epithelial Cells (None Seen) /HPF Urine Bacteria (None Seen) /HPF Urine Culture Reflexed (NO) 01/03/25 Range/Units 11:55 WBC (4.23-9.07) x10^3/uL RBC (4.63-6.08) x10^6/uL Hgb (13.7-17.5) g/dL Hct (40.1-51.0) % MCV (79.0-92.2) fL MCH (25.7-32.2) pg MCHC (32.3-36.5) g/dL RDW (11.6-14.4) % Plt Count (163-337) x10^3/uL MPV (9.4-12.4) fL Gran % (34.0-67.9) % Immature Gran % (Auto) (0.001-0.429) % Nucleat RBC Rel Count (0.00-0.2) % Eos # (Auto) (0.04-0.54) x10^3/uL Immature Gran # (Auto) (0.001-0.031) x10^3u/L Absolute Lymphs (auto) (1.32-3.57) x10^3/uL Absolute Monos (auto) (0.30-0.82) x10^3/uL Absolute Nucleated RBC (0.00-0.012) x10^3u/L Lymphocytes % (21.8-53.1) % Monocytes % (5.3-12.2) % Eosinophils % (0.8-7.0) % Basophils % (0.2-1.2) % Absolute Granulocytes (1.78-5.38) x10^3/uL Basophils # (0.01-0.08) x10^3/uL Sodium (135-145) mmol/L Potassium (3.5-5.1) mmol/L Chloride (98-107) mmol/L Carbon Dioxide (22-30) mmol/L Anion Gap (5-15) MEQ/L BUN (9-20) mg/dL Creatinine (0.66-1.25) mg/dL Estimated GFR ML/MIN Glucose (74-106) mg/dL POC Glucometer 161 H (74 to 106) mg/dL Lactic Acid (0.4-2.0) Calcium (8.4-10.2) mg/dL Magnesium (1.6-2.3) mg/dL Total Bilirubin (0.2-1.3) mg/dL AST (17-59) U/L ALT (0-50) U/L Alkaline Phosphatase (38-126) U/L Creatine Kinase (55-170) U/L Troponin I (0.000-0.033) ng/mL Serum Total Protein (6.3-8.2) g/dL Albumin (3.5-5.0) g/dL Prealbumin (17.6-36.0) mg/dL Lipase (23-300) U/L Procalcitonin (0.030-0.080) ng/mL Urine Color (Yellow) Urine Appearance (Clear) Urine pH (4.6-8.0) Ur Specific [place] (1.005-1.030) Urine Protein (Negative) Urine Glucose (UA) (Negative) mg/dL Urine Ketones (Negative) Urine Blood (Negative) Urine Nitrite (Negative) Urine Bilirubin (Negative) Urine Urobilinogen (0.2) mg/dL Ur Leukocyte Esterase (Negative) U Hyaline Cast (Auto) (0-2) /LPF Urine Microscopic RBC (0-5) /HPF Urine Microscopic WBC (0-5) /HPF Ur Epithelial Cells (None Seen) /HPF Urine Bacteria (None Seen) /HPF Urine Culture Reflexed (NO) Micro Results-Entire Visit: Microbiology 01/02/25 22:50 Urine Culture - Preliminary Catherized NO GROWTH TO DATE Accuchecks Date 01/03/25 Date 01/03/25 Time 12:32 Time 07:52 - Radiology Exams Ordered Rad Exams-Entire Visit: Radiology Procedures Category Date Time Status CHEST 1 VIEW (PORTABLE) Stat Exams 01/02/25 20:41 Completed - Procedures and Test Procedures and Tests throughout Hospitalization: Therapy Orders & Screens 01/03/25 03:15 PT Eval & Treat ( Order) ONCE Reason for Eval:: worsening gait Diagnosis: falls, weakness Discharge Exam General Appearance: no apparent distress, alert Neurologic Exam: alert, oriented x 3, cooperative, normal mood/affect, nml cerebellar function, sensation nml, motor weakness, No motor deficits Eye Exam: PERRL, EOMI, eyes nml inspection Ears, Nose, Throat Exam: normal ENT inspection, pharynx normal, moist mucous membranes Neck Exam: normal inspection, non-tender, supple, full range of motion Respiratory Exam: normal breath sounds, lungs clear, No respiratory distress Cardiovascular Exam: regular rate/rhythm, normal heart sounds Gastrointestinal/Abdomen Exam: soft, No tenderness, No mass Male Genitalia Exam: deferred Rectal Exam: deferred Back Exam: normal inspection, normal range of motion, No CVA tenderness, No vertebral tenderness Extremity Exam: normal inspection, normal range of motion Skin Exam: normal color, warm, dry Wound Assessment: Skin/Wound Assessment Wound/Incision Assessment Start: 01/03/25 03:05 Text: Status: Active Freq: Q6H Protocol: Document 01/03/25 09:05 CWB (Rec: 01/03/25 10:48 CWB [id number]) Wound/Incision Assessment Sacrum Wound Assessment Admission Wound Type Pressure Ulcer Dressing Status Dry & Intact Drainage Amount None Drainage Odor None/Absent Primary Dressing Absorbant Pad Secondary Dressing tegaderm Comment wound remains dressed from admission. No changes noted at this time. Wound Photo Photo Taken No Final Diagnosis/Problem List - Final Discharge Diagnosis/Problem (1) Fall Current Visit: Yes Status: Acute Assessment & Plan: - PT eval and treat - CM to set up PT with [facility] company - From toilet Code(s): W19.XXXA - UNSPECIFIED FALL, INITIAL ENCOUNTER (2) Generalized weakness Current Visit: Yes Status: Acute Assessment & Plan: - Patient notes this happens whenever he stops his antibiotics for his sacral wound. - However, per report, his sacral wound has been improving without signs of infection. - PT evaluation - CBC, CMP reviewed - CXR reviewed Code(s): R53.1 - WEAKNESS (3) HTN (hypertension) Current Visit: No Status: Chronic Assessment & Plan: - Blood pressure overall controlled. - Resume home lisinopril 20 mg daily Code(s): I10 - ESSENTIAL (PRIMARY) HYPERTENSION (4) Parkinson disease Current Visit: No Status: Chronic Assessment & Plan: - Resume Carbidopa 1 tab 4 times daily Code(s): G20.A1 - PARKINSON'S DIS W/O DYSKINESIA, W/O MENTION OF FLUCTUATIONS (5) Type II diabetes mellitus Current Visit: No Status: Chronic Assessment & Plan: -only on metformin at home. Last hemoglobin A1c was 6.3 last month- controlled - Start on moderate dose sliding scale insulin - Diabetic diet (6) CHF (congestive heart failure) Current Visit: No Status: Chronic Assessment & Plan: - Continue home dose of Lasix - CXR reviewed - RA 96% Code(s): I50.9 - HEART FAILURE, UNSPECIFIED (7) Acute UTI (urinary tract infection) Current Visit: Yes Status: Resolved Assessment & Plan: - UC negative - Ruled out. Code(s): N39.0 - URINARY TRACT INFECTION, SITE NOT SPECIFIED - Discharge Discharge Date: 01/03/25 Disposition: HOME HEALTH SERVICE Condition: Stable Prescriptions: Continue lisinopriL [Zestril] 20 mg PO DAILY Metformin HCl 500 mg [Glucophage 500 MG] 500 mg PO DAILY Ezetimibe 10 mg PO QHS Atorvastatin Calcium [Lipitor] 80 mg PO QHS Furosemide 40 mg [Lasix 40 MG] 40 mg PO DAILY Potassium Chloride 10 meq PO DAILY Acetaminophen 325 mg [Tylenol 325 mg] 650 mg PO Q6HPRN PRN PRN Reason: FEVER OR PAIN Hydrocodone/Acetaminophen [[place] 10-325 mg] 1 tab PO Q6HPRN PRN 3 Days #12 tablet MDD 4 PRN Reason: Pain Carbidopa/Levodopa [Carbidopa-Levo 25-100 mg Odt] 1 tab PO QID Follow up with: LENA DUGGAN MD [Primary Care Provider, [facility]]
[2025-01-03] MEDS ORDERED: NON-FORMULARY ITEM (Atorvastatin Calcium [Lipitor] 80 MG Tablet) PO SCH (22:00)
[2025-01-03] MEDS ORDERED: Zetia 10 MG PO SCH (22:00)
[2025-01-03] MEDS ORDERED: ROCEPHIN 1 GM / 100 ML NaCl 1 GM/100 ML IVPB IV SCH (22:00)
[2025-01-03] MEDS ORDERED: ZOCOR 20MG PO SCH (22:00)
== END 2025-01-03 15:34 | disposition home health service (06) ==
LOC: ED 20:28 → MED SURG 01-03 02:32
PROVIDERS: ADMIT Internal Medicine; ATTEND Internal Medicine
DX: N39.0 Urinary tract infection, site not specified (principal); R53.1 Weakness; W19.XXXA Unspecified fall, initial encounter; E11.9 Type 2 diabetes mellitus without complications; I11.0 Hypertensive heart disease with heart failure; I50.9 Heart failure, unspecified; G20.A1 Parkinson's disease without dyskinesia, without mention of fluctuations; L89.159 Pressure ulcer of sacral region, unspecified stage; Z79.899 Other long term (current) drug therapy
CPT/HCPCS: 36415; 71045; 80048; 80053; 81001; 82550; 82947; 83605; 83690; 83735; 84134; 84145; 84484; 85025; 85027; 87040; 87086; 93005; 96374; 96375; 97161; P9612; Q3014; 99285; J0696; J1171; J1650; J1817; J2405; J3010; A9270-GY

== ENCOUNTER 2025-01-06 15:55 | Inpatient (IN) | payer MEDICARE ==
--- NOTE | 2025-01-06 16:30 | PCM.HP ---
History of Present Illness - Chief Complaint Chief Complaint: UTI Date: 01/06/25 History of Present Illness: is a 79-year-old male with a medical history of Parkinsons disease, hypertension, diabetes, and a chronic, poorly healing sacral decubitus ulcer. He was recently hospitalized from January 02 to January 03 due to generalized weakness and falls. At that time, his laboratory results and urinalysis were unremarkable, and he was discharged home with plans for outpatient wound care follow-up. Following discharge, a urine culture from his admission grew Pseudomonas, and he was prescribed antibiotics as an outpatient. He reports that he began taking the antibiotics as directed but has continued to feel unwell, prompting a visit to his primary care provider earlier today. The patient receives home health care and has a caregiver, but he reports being unable to manage his care independently. He was recently found with feces throughout his home, raising concerns about his ability to care for himself. Although he had previously declined senior living placement during his last admission, he now expresses interest in transferring to [facility]. He has been dealing with a sacral ulcer since July and reports feeling recurrent generalized weakness after completing antibiotic courses. He recently finished a round of antibiotics for his sacral wound and notes that prior to this he was walking independently. One week ago, he began using a cane, and he now requires a rolling walker for ambulation. He denies fevers, headaches, chest pain, shortness of breath, nausea, vomiting, diarrhea, or any changes in his ostomy output. However, he currently has a temperature of 101.4F. Blood cultures have been obtained, labs as well as urinalysis with culture is pending. He will be started on IV antibiotics for a presumed urinary tract infection. Case management will continue to assess for appropriate placement. - Review of Systems Constitutional: Weakness, No Fever, No Chills Eyes: No Symptoms Ears, Nose, & Throat: No Symptoms Respiratory: No Cough, No Short Of Breath Cardiac: No Chest Pain, No Edema, No Syncope Abdominal/Gastrointestinal: No Abdominal Pain, No Nausea, No Vomiting, No Diarrhea Genitourinary Symptoms: No Dysuria Musculoskeletal: No Back Pain, No Neck Pain Skin: Decubiti (sacrum- chronic), No Rash Neurological: No Dizziness, No Focal Weakness, No Sensory Changes Psychological: No Symptoms Endocrine: No Symptoms Hematologic/Lymphatic: No Symptoms Immunological/Allergic: No Symptoms Medications & Allergies Home Medications: Home Medication List lisinopriL [Zestril] 20 mg PO DAILY 12/11/15 [History Confirmed 01/02/25] Atorvastatin Calcium [Lipitor] 80 mg PO QHS 06/09/19 [History Confirmed 01/02/25] Ezetimibe 10 mg PO QHS 06/09/19 [History Confirmed 01/02/25] Metformin HCl 500 mg [Glucophage 500 MG] 500 mg PO DAILY 06/09/19 [History Confirmed 01/02/25] Furosemide 40 mg [Lasix 40 MG] 40 mg PO DAILY 08/14/24 [History Confirmed 01/02/25] Potassium Chloride 10 meq PO DAILY 08/14/24 [History Confirmed 01/02/25] Acetaminophen 325 mg [Tylenol 325 mg] 650 mg PO Q6HPRN PRN 09/11/24 [History Confirmed 01/02/25] Hydrocodone/Acetaminophen [[place] 10-325 mg] 1 tab PO Q6HPRN PRN 3 Days #12 tabl et MDD 4 09/21/24 [Rx Confirmed 01/02/25] Carbidopa/Levodopa [Carbidopa-Levo 25-100 mg Odt] 1 tab PO QID 01/02/25 [History Confirmed 01/02/25] Allergies/Adverse Reactions: Allergies Allergy/AdvReac Type Severity Reaction Status Date / Time No Known Drug Allergies Allergy Verified 01/06/25 16:21 - Past Medical History Past Medical History: Yes Neurological History: Other ENT History: No Pertinent History Cardiac History: High Cholesterol, Hypertension Respiratory History: No Pertinent History Endocrine Medical History: Diabetes Type II Musculoskelatal History: Osteoarthritis, Other GI Medical History: No Pertinent History History: No Pertinent History Pyscho-Social History: No Pertinent History Male Reproductive Disorders: No Pertinent History Comment: SX HX; LEFT KNEE REPLACEMENT YEARS AGO, 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 PARKINSON'S DZ. PARKINSON'S - Past Surgical History Past Surgical History: Yes Neuro Surgical History: No Pertinent History Cardiac History: No Pertinent History Respiratory Surgery: No Pertinent History GI Surgical History: No Pertinent History Genitourinary Surgical Hx: No Pertinent History Musculskeletal Surgical Hx: Amputation, Orthopedic Surgery Other Surgical History: TOTAL CLEFT PALATE REPAIR. , finger amputation,left knee joint replacement Significant Family History: no pertinent family hx - Social History Smoking Status: Never smoker Exposure to second hand smoke: No Alcohol: None Drug Use: none - Social Determinants of Health Will the patient participate in the screening: Yes Do you worry about a steady place to live?: No In the past 12 months,have you had to go without utilities?: No Have you or anyone in your house had to go without enough: No Transportation Issues: No Has anyone in your support network made you feel unsafe?: No Does the patient want assistance with any of the above?: No - Physical Exam General Appearance: no apparent distress, alert, obese Neurologic Exam: alert, oriented x 3, cooperative, normal mood/affect, nml cerebellar function, nml station & gait, sensation nml, No motor deficits Eye Exam: PERRL/EOMI, eyes nml inspection Ears, Nose, Throat Exam: normal ENT inspection, TMs normal, pharynx normal, moist mucous membranes Neck Exam: normal inspection, non-tender, supple, full range of motion Respiratory Exam: normal breath sounds, lungs clear, No respiratory distress Cardiovascular Exam: regular rate/rhythm, normal heart sounds, normal peripheral pulses Gastrointestinal/Abdomen Exam: soft, normal bowel sounds, No tenderness, No mass Back Exam: normal inspection, normal range of motion, No CVA tenderness, No vertebral tenderness Extremity Exam: normal inspection, normal range of motion, pelvis stable Skin Exam: normal color, warm, dry, decubitus (sacrum), No rash Lymphatic Exam: No adenopathy Assessment/Plan (1) Pseudomonas urinary tract infection Current Visit: Yes Status: Acute Assessment & Plan: - UA with culture pending - Dx made from previous culture - CBC, CMP pending - Took 2 days of PO antibiotic OP - + temp 101- tylenol PRN - IVF - tele - BC x2 - Levaquin IV Code(s): N39.0 - URINARY TRACT INFECTION, SITE NOT SPECIFIED; B96.5 - PSEUDOMONAS (MALLEI) CAUSING DISEASES CLASSD ELSWHR (2) CHF (congestive heart failure) Current Visit: No Status: Chronic Assessment & Plan: - Continue Lasix - Not in acute exacerbation. Code(s): I50.9 - HEART FAILURE, UNSPECIFIED (3) Carotid artery disease Current Visit: No Status: Chronic Assessment & Plan: - Hx of R carotid endarectomy Code(s): I77.9 - DISORDER OF ARTERIES AND ARTERIOLES, UNSPECIFIED (4) Colostomy in place Current Visit: No Status: Chronic Assessment & Plan: - Noted - Pt requested at previous visit and surgeon agreed to procedure to aide in wound healing on sacrum. - Pt states he is unable to care for self and hep found feces all over house. Code(s): Z93.3 - COLOSTOMY STATUS (5) Decubitus ulcer Current Visit: No Status: Chronic Qualifiers: Pressure injury location: sacral region Pressure injury stage: unstageable Qualified Code(s): L89.150 - Pressure ulcer of sacral region, unstageable Assessment & Plan: - Chronic - Follow [facility] every week. Code(s): L89.90 - PRESSURE ULCER OF UNSPECIFIED SITE, UNSPECIFIED STAGE (6) HTN (hypertension) Current Visit: No Status: Chronic Qualifiers: Assessment & Plan: - BP stable continue home meds Code(s): I10 - ESSENTIAL (PRIMARY) HYPERTENSION (7) Obesity (BMI 30-39.9) Current Visit: No Status: Chronic Assessment & Plan: - Advised ADA diet and exercise Code(s): E66.9 - OBESITY, UNSPECIFIED (8) Parkinson disease Current Visit: No Status: Chronic Assessment & Plan: - Continue home meds Code(s): G20.A1 - PARKINSON'S DIS W/O DYSKINESIA, W/O MENTION OF FLUCTUATIONS (9) Type II diabetes mellitus Current Visit: No Status: Chronic Qualifiers: 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 insulin use: without watermelon inspector use Diabetes mellitus complication status: without complication Qualified Code(s): E11.9 - Type 2 diabetes mellitus without complications Assessment & Plan: - Continue Metformin - A1C 6.29- 12/03/24- controlled VTE: Heparin PPI: Protonix Next of KIN: Friend D/C plan: 2-3 days- pending placement Code status: SCO/DNR Telemedicine Encounter - Telemedicine Encounter Telemedicine Encounter: "The entirety of this encounter was performed via Telemedicine" This visit was performed using real-time audio and video connection between my location and thepatients locationwith the assistance of a surrogateat the patients location. Written or verbal consent was obtained from the patient/guardian to perform this visit usingsynchronoustelemedicine technology. Any patient questions regarding the telemedicine interaction were answered.
[2025-01-06] MEDS: TYLENOL 325 MG PO PRN (17:00)
[2025-01-06 17:08] LABS: Appearance Clear (Clear); Bacteria None Seen /HPF (None Seen); Bilirubin Negative (Negative); Blood Negative (Negative); Epithelial Cells None Seen /HPF (None Seen); Glucose, Urine Negative (Negative); Hyaline Casts NONE SEEN /LPF (0-2); Ketones Negative (Negative); Leukocyte Esterase Trace (Negative); Nitrite Negative (Negative); Ph 5.5 (4.6-8.0); Protein,Urine Dip Negative (Negative); RBC 0-2 /HPF (0-5); Urobilinogen 0.2 mg/dL (0.2); WBC 0-2 /HPF (0-5)
[2025-01-06 17:35] LABS: Hematocrit 27.6 % (40.1-51.0); Hemoglobin 8.7 g/dL (13.7-17.5); Mean Cell Volume 85.4 fL (79.0-92.2); Mean Corpuscular Hemoglobin 26.9 pg (25.7-32.2); Mean Corpuscular Hgb Concent. 31.5 g/dL (32.3-36.5); Mean Platelet Volume 9.3 fL (9.4-12.4); Platelet Count 235 x10^3/uL (163-337); Red Blood Count 3.23 x10^6/uL (4.63-6.08); Red Cell Distribution Width 14.2 % (11.6-14.4); White Blood Count 12.7 x10^3/uL (4.23-9.07)
[2025-01-06 17:58] LABS: ALBUMIN 3.8 g/dL (3.5-5.0); ANION GAP 17.5 MEQ/L (5-15); BILIRUBIN,TOTAL 0.6 mg/dL (0.2-1.3); Calcium 8.7 mg/dL (8.4-10.2); Creatinine 1 0.91 mg/dL (0.66-1.25); EST GLOMERULAR FILTRATION RATE 86.8 ML/MIN; PREALBUMIN 7.24 mg/dL (17.6-36.0); Potassium 4.7 mmol/L (3.5-5.1); Total Protein 7.1 g/dL (6.3-8.2)
[2025-01-06] MEDS: Sodium Chloride 0.9% 1000 ML 1,000 ML IV SCH (17:58)
[2025-01-06] MEDS: Protonix 20MG Tablet PO SCH (17:59)
[2025-01-06] MEDS: LEVOFLOXACIN 750MG/150ML D5W 750 MG/150 ML BAG IV SCH (17:59)
[2025-01-06] MEDS ORDERED: NORCO 10-325 MG PO PRN (18:06)
[2025-01-06] MEDS ORDERED: TYLENOL 325 MG PO PRN (18:06)
[2025-01-06] MEDS ORDERED: Sinemet 25/100 MG ONE (21:18)
[2025-01-06] MEDS ORDERED: ZOCOR 20MG ONE (21:21)
[2025-01-06] MEDS: HEPARIN 5000 UNITS/0.5 ML (HIGH RISK MED) SQ SCH (21:54)
[2025-01-06] MEDS: NON-FORMULARY ITEM (Carbidopa/Levodopa [Carbidopa-Levo 25-100 Mg Odt] 1 EACH Tab.Rapdis) PO SCH (21:55)
[2025-01-06] MEDS: Zetia 10 MG PO SCH (21:55)
[2025-01-06] MEDS: ZOCOR 20MG PO SCH (21:59)
[2025-01-06] MEDS ORDERED: NON-FORMULARY ITEM (Atorvastatin Calcium [Lipitor] 80 MG Tablet) PO SCH (22:00)
[2025-01-07] MEDS: NORCO 5/325 MG PO PRN (02:16)
[2025-01-07 05:51] LABS: Hematocrit 25.9 % (40.1-51.0); Hemoglobin 8.5 g/dL (13.7-17.5); Mean Cell Volume 83.5 fL (79.0-92.2); Mean Corpuscular Hemoglobin 27.4 pg (25.7-32.2); Mean Corpuscular Hgb Concent. 32.8 g/dL (32.3-36.5); Mean Platelet Volume 9.5 fL (9.4-12.4); Platelet Count 227 x10^3/uL (163-337); White Blood Count 8.7 x10^3/uL (4.23-9.07)
[2025-01-07 06:08] LABS: ALBUMIN 3.3 g/dL (3.5-5.0); ANION GAP 15.4 MEQ/L (5-15); BILIRUBIN,TOTAL 0.5 mg/dL (0.2-1.3); Calcium 8.8 mg/dL (8.4-10.2); Creatinine 1 0.82 mg/dL (0.66-1.25); EST GLOMERULAR FILTRATION RATE 90.5 ML/MIN; Potassium 4.4 mmol/L (3.5-5.1); Total Protein 6.5 g/dL (6.3-8.2)
--- NOTE | 2025-01-07 09:11 | PCM.NOTE ---
Date and Time: 01/07/25 0903 Subjective Assessment: 01/06/25 is a 79-year-old male with a medical history of Parkinsons disease, hypertension, diabetes, and a chronic, poorly healing sacral decubitus ulcer. He was recently hospitalized from January 02 to January 03 due to generalized weakness and falls. At that time, his laboratory results and urinalysis were unremarkable, and he was discharged home with plans for outpatient wound care follow-up. Following discharge, a urine culture from his admission grew Pseudomonas, and he was prescribed antibiotics as an outpatient. He reports that he began taking the antibiotics as directed but has continued to feel unwell, prompting a visit to his primary care provider earlier today. The patient receives home health care and has a caregiver, but he reports being unable to manage his care independently. He was recently found with feces throughout his home, raising concerns about his ability to care for himself. Although he had previously declined retirement placement during his last admission, he now expresses interest in transferring to [facility]. He has been dealing with a sacral ulcer since July and reports feeling recurrent generalized weakness after completing antibiotic courses. He recently finished a round of antibiotics for his sacral wound and notes that prior to this he was walking independently. One week ago, he began using a cane, and he now requires a rolling walker for ambulation. He denies fevers, headaches, chest pain, shortness of breath, nausea, vomiting, diarrhea, or any changes in his ostomy output. However, he currently has a temperature of 101.4F. Blood cultures have been obtained, labs as well as urinalysis with culture is pending. He will be started on IV antibiotics for a presumed urinary tract infection. Case management will continue to assess for appropriate placement. 01/07/25 Pt resting in bed. He states he is starting to feel better today. Wound culture of coccyx and BC x2 pending. No fever since admission. He states he continues to have wound drainage and this may be the source of infection. UA non-concerning. WBC 8.7 today. Continue Levaquin added vancomycin for diabetic wound. Case management to discuss placement. Pt deneis CP, SOB, abd. pain, N/V/D. + Weakness. - Review of Systems Constitutional: Weakness, No Fever, No Chills Eyes: No Symptoms Ears, Nose, & Throat: No Symptoms Respiratory: No Cough, No Short Of Breath Cardiac: No Chest Pain, No Edema, No Syncope Abdominal/Gastrointestinal: No Abdominal Pain, No Nausea, No Vomiting, No Diarrhea Genitourinary Symptoms: No Dysuria Musculoskeletal: No Back Pain, No Neck Pain Skin: Skin Lesions (coccyx), No Rash Neurological: No Dizziness, No Focal Weakness, No Sensory Changes Psychological: No Symptoms Endocrine: No Symptoms Hematologic/Lymphatic: No Symptoms Immunological/Allergic: No Symptoms Objective Exam General Appearance: no apparent distress, alert, obese Neurologic Exam: alert, oriented x 3, cooperative, normal mood/affect, nml cerebellar function, sensation nml, motor weakness, No motor deficits Skin Exam: normal color, warm, dry, other (wound of coccyx) Wound Assessment: Skin/Wound Assessment Wound/Incision Assessment Start: 01/06/25 17:20 Text: Status: Active Freq: Q6H Protocol: Document 01/07/25 08:00 CWB (Rec: 01/07/25 08:10 CWB [id number]) Wound Photo Photo Taken No Eye Exam: PERRL, EOMI, eyes nml inspection Ears, Nose, Throat Exam: normal ENT inspection, pharynx normal, moist mucous membranes Neck Exam: normal inspection, non-tender, supple, full range of motion Respiratory Exam: normal breath sounds, lungs clear, No respiratory distress Cardiovascular Exam: regular rate/rhythm, normal heart sounds Gastrointestinal/Abdomen Exam: soft, No tenderness, No mass Extremity Exam: normal inspection, normal range of motion Back Exam: normal inspection, normal range of motion, No CVA tenderness, No vertebral tenderness Male Genitalia Exam: deferred Rectal Exam: deferred Objective Data Vital Signs: Vital Signs - 24 hr Temp Pulse Resp BP Pulse Ox 01/07/25 07:34 97.5 F 72 20 136/63 94 L 01/07/25 03:48 97.8 F 73 18 145/67 97 01/06/25 23:28 98.6 F 74 19 138/63 98 01/06/25 19:56 98.2 F 62 21 132/60 94 L 01/06/25 16:35 101.4 F 84 16 100/54 91 L Pain Assessment - Last Documented Pain Intensity 4 Pain Scale Used FLACC Intake and Output: Intake & Output 01/04/25 01/05/25 01/06/25 01/07/25 11:59 11:59 11:59 11:59 Intake Total 1080 Output Total 2950 Balance -1870 Weight 109.8 kg Lab Results: Lab Results-Last 24 Hours 01/06/25 01/06/25 01/06/25 Range/Units 16:24 16:50 17:05 WBC 12.7 H (4.23-9.07) x10^3/uL RBC 3.23 L (4.63-6.08) x10^6/uL Hgb 8.7 L (13.7-17.5) g/dL Hct 27.6 L (40.1-51.0) % MCV 85.4 (79.0-92.2) fL MCH 26.9 (25.7-32.2) pg MCHC 31.5 L (32.3-36.5) g/dL RDW 14.2 (11.6-14.4) % Plt Count 235 (163-337) x10^3/uL MPV 9.3 L (9.4-12.4) fL Sodium 132 L (135-145) mmol/L Potassium 4.7 (3.5-5.1) mmol/L Chloride 96 L (98-107) mmol/L Carbon Dioxide 23 (22-30) mmol/L Anion Gap 17.5 H (5-15) MEQ/L BUN 25 H (9-20) mg/dL Creatinine 0.91 (0.66-1.25) mg/dL Estimated GFR 86.8 ML/MIN Glucose 125 H (74-106) mg/dL POC Glucometer (74 to 106) mg/dL Calcium 8.7 (8.4-10.2) mg/dL Total Bilirubin 0.60 (0.2-1.3) mg/dL AST 61 H (17-59) U/L ALT 11 (0-50) U/L Alkaline Phosphatase 165 H (38-126) U/L Creatine Kinase (55-170) U/L Serum Total Protein 7.1 (6.3-8.2) g/dL Albumin 3.8 (3.5-5.0) g/dL Prealbumin 7.24 L (17.6-36.0) mg/dL Urine Color Yellow (Yellow) Urine Appearance Clear (Clear) Urine pH 5.5 (4.6-8.0) Ur Specific [place] 1.010 (1.005-1.030) Urine Protein Negative (Negative) Urine Glucose (UA) Negative (Negative) mg/dL Urine Ketones Negative (Negative) Urine Blood Negative (Negative) Urine Nitrite Negative (Negative) Urine Bilirubin Negative (Negative) Urine Urobilinogen 0.2 (0.2) mg/dL Ur Leukocyte Esterase Trace A (Negative) U Hyaline Cast (Auto) NONE SEEN (0-2) /LPF Urine Microscopic RBC 0-2 (0-5) /HPF Urine Microscopic WBC 0-2 (0-5) /HPF Ur Epithelial Cells None Seen (None Seen) /HPF Urine Bacteria None Seen (None Seen) /HPF Urine Culture Reflexed NO (NO) 01/06/25 01/06/25 01/07/25 Range/Units 17:05 22:17 04:40 WBC 8.7 (4.23-9.07) x10^3/uL RBC 3.10 L (4.63-6.08) x10^6/uL Hgb 8.5 L (13.7-17.5) g/dL Hct 25.9 L (40.1-51.0) % MCV 83.5 (79.0-92.2) fL MCH 27.4 (25.7-32.2) pg MCHC 32.8 (32.3-36.5) g/dL RDW 14.0 (11.6-14.4) % Plt Count 227 (163-337) x10^3/uL MPV 9.5 (9.4-12.4) fL Sodium (135-145) mmol/L Potassium (3.5-5.1) mmol/L Chloride (98-107) mmol/L Carbon Dioxide (22-30) mmol/L Anion Gap (5-15) MEQ/L BUN (9-20) mg/dL Creatinine (0.66-1.25) mg/dL Estimated GFR ML/MIN Glucose (74-106) mg/dL POC Glucometer 255 H (74 to 106) mg/dL Calcium (8.4-10.2) mg/dL Total Bilirubin (0.2-1.3) mg/dL AST (17-59) U/L ALT (0-50) U/L Alkaline Phosphatase (38-126) U/L Creatine Kinase 258 H (55-170) U/L Serum Total Protein (6.3-8.2) g/dL Albumin (3.5-5.0) g/dL Prealbumin (17.6-36.0) mg/dL Urine Color (Yellow) Urine Appearance (Clear) Urine pH (4.6-8.0) Ur Specific [place] (1.005-1.030) Urine Protein (Negative) Urine Glucose (UA) (Negative) mg/dL Urine Ketones (Negative) Urine Blood (Negative) Urine Nitrite (Negative) Urine Bilirubin (Negative) Urine Urobilinogen (0.2) mg/dL Ur Leukocyte Esterase (Negative) U Hyaline Cast (Auto) (0-2) /LPF Urine Microscopic RBC (0-5) /HPF Urine Microscopic WBC (0-5) /HPF Ur Epithelial Cells (None Seen) /HPF Urine Bacteria (None Seen) /HPF Urine Culture Reflexed (NO) 01/07/25 01/07/25 Range/Units 04:40 06:56 WBC (4.23-9.07) x10^3/uL RBC (4.63-6.08) x10^6/uL Hgb (13.7-17.5) g/dL Hct (40.1-51.0) % MCV (79.0-92.2) fL MCH (25.7-32.2) pg MCHC (32.3-36.5) g/dL RDW (11.6-14.4) % Plt Count (163-337) x10^3/uL MPV (9.4-12.4) fL Sodium 133 L (135-145) mmol/L Potassium 4.4 (3.5-5.1) mmol/L Chloride 101 (98-107) mmol/L Carbon Dioxide 22 (22-30) mmol/L Anion Gap 15.4 H (5-15) MEQ/L BUN 25 H (9-20) mg/dL Creatinine 0.82 (0.66-1.25) mg/dL Estimated GFR 90.5 ML/MIN Glucose 207 H (74-106) mg/dL POC Glucometer 190 H (74 to 106) mg/dL Calcium 8.8 (8.4-10.2) mg/dL Total Bilirubin 0.50 (0.2-1.3) mg/dL AST 43 (17-59) U/L ALT 9 (0-50) U/L Alkaline Phosphatase 137 H (38-126) U/L Creatine Kinase (55-170) U/L Serum Total Protein 6.5 (6.3-8.2) g/dL Albumin 3.3 L (3.5-5.0) g/dL Prealbumin (17.6-36.0) mg/dL Urine Color (Yellow) Urine Appearance (Clear) Urine pH (4.6-8.0) Ur Specific [place] (1.005-1.030) Urine Protein (Negative) Urine Glucose (UA) (Negative) mg/dL Urine Ketones (Negative) Urine Blood (Negative) Urine Nitrite (Negative) Urine Bilirubin (Negative) Urine Urobilinogen (0.2) mg/dL Ur Leukocyte Esterase (Negative) U Hyaline Cast (Auto) (0-2) /LPF Urine Microscopic RBC (0-5) /HPF Urine Microscopic WBC (0-5) /HPF Ur Epithelial Cells (None Seen) /HPF Urine Bacteria (None Seen) /HPF Urine Culture Reflexed (NO) Medications: Medications Generic Name Dose Route Start Last Admin Trade Name Freq PRN Reason Stop Dose Admin Acetaminophen 650 mg 01/06/25 16:56 01/06/25 17:00 Acetaminophen 325 Mg Tablet PO 02/05/25 16:55 650 mg Q6H PRN PRN Administration PAIN AND/OR FEVER Hydrocodone Bitart/Acetaminophen 1 tab 01/07/25 02:09 01/07/25 02:16 Hydrocodone/Apap 5/325 1 Tab Tablet PO 01/12/25 02:08 1 tab Q6H PRN PRN Administration PAIN Carbidopa/Levodopa 1 tab 01/07/25 10:00 Carbidopa/Levodopa 25/100 1 Tab Tablet PO 02/06/25 09:59 QID CONI Ezetimibe 10 mg 01/06/25 22:00 01/06/25 21:55 Ezetimibe 10 Mg Tab PO 02/05/25 21:59 10 mg QHS CONI Administration Furosemide 40 mg 01/07/25 10:00 Furosemide 40 Mg Tablet PO 02/06/25 09:59 DAILY CONI Heparin Sodium (Beef Lung) 5,000 unit 01/06/25 22:00 01/06/25 21:54 Heparin 5000 Units/0.5 Ml 5,000 Unit/0.5 Ml Syr SQ 02/05/25 21:59 5,000 unit BID CONI Administration Levofloxacin/Dextrose 750 mg in 150 mls @ 100 mls/hr 01/06/25 17:00 01/06/25 17:59 Levofloxacin 750mg/150ml D5w IV 02/05/25 16:59 100 mls/hr Q24H10 CONI Administration Sodium Chloride 1,000 mls @ 50 mls/hr 01/06/25 17:15 01/06/25 17:58 Sodium Chloride 0.9% 1000 Ml IV 02/05/25 17:14 50 mls/hr .Q20H CONI Administration Lisinopril 20 mg 01/07/25 10:00 Lisinopril 20 Mg Tablet PO 02/06/25 09:59 DAILY CONI Metformin HCl 500 mg 01/07/25 10:00 Metformin Hcl 500 Mg Tablet PO 02/06/25 09:59 DAILY CONI Pantoprazole Sodium 20 mg 01/06/25 18:00 01/06/25 17:59 Pantoprazole 20 Mg Tab PO 02/05/25 17:59 20 mg DAILY CONI Administration Potassium Chloride 10 meq 01/07/25 10:00 Potassium Chloride Tab 10 Meq Tab PO 02/06/25 09:59 DAILY CONI Simvastatin 40 mg 01/06/25 22:00 01/06/25 21:59 Simvastatin 20 Mg Tablet PO 02/05/25 21:59 40 mg HS CONI Administration Discontinued Medications Generic Name Dose Route Start Last Admin Trade Name Freq PRN Reason Stop Dose Admin Carbidopa/Levodopa Confirm 01/06/25 21:18 Carbidopa/Levodopa 25/100 1 Tab Tablet Administered 01/06/25 21:19 Dose 1 tab .ROUTE .STK-MED ONE Non-Formulary Medication 1 tab 01/06/25 22:00 01/06/25 21:55 Carbidopa/Levodopa [Carbidopa-Levo 25-100 Mg Odt] PO 02/05/25 21:59 1 tab QID CONI Administration Non-Formulary Medication 80 mg 01/06/25 22:00 Atorvastatin Calcium [Lipitor] PO 02/05/25 21:59 QHS CONI Simvastatin Confirm 01/06/25 21:21 Simvastatin 20 Mg Tablet Administered 01/06/25 21:22 Dose 40 mg .ROUTE .STK-MED ONE Assessment/Plan (1) Pseudomonas urinary tract infection Current Visit: Yes Status: Acute Code(s): N39.0 - URINARY TRACT INFECTION, SITE NOT SPECIFIED; B96.5 - PSEUDOMONAS (MALLEI) CAUSING DISEASES CLASSD ELSWHR (2) CHF (congestive heart failure) Current Visit: No Status: Chronic Code(s): I50.9 - HEART FAILURE, UNSPECIFIED (3) Carotid artery disease Current Visit: No Status: Chronic Code(s): I77.9 - DISORDER OF ARTERIES AND ARTERIOLES, UNSPECIFIED (4) Colostomy in place Current Visit: No Status: Chronic Code(s): Z93.3 - COLOSTOMY STATUS (5) Decubitus ulcer Current Visit: No Status: Chronic Qualifiers: Pressure injury location: sacral region Pressure injury stage: unstageable Qualified Code(s): L89.150 - Pressure ulcer of sacral region, unstageable Code(s): L89.90 - PRESSURE ULCER OF UNSPECIFIED SITE, UNSPECIFIED STAGE (6) HTN (hypertension) Current Visit: No Status: Chronic Qualifiers: Code(s): I10 - ESSENTIAL (PRIMARY) HYPERTENSION (7) Obesity (BMI 30-39.9) Current Visit: No Status: Chronic Code(s): E66.9 - OBESITY, UNSPECIFIED (8) Parkinson disease Current Visit: No Status: Chronic Code(s): G20.A1 - PARKINSON'S DIS W/O DYSKINESIA, W/O MENTION OF FLUCTUATIONS (9) Type II diabetes mellitus Current Visit: No Status: Chronic Qualifiers: Diabetes mellitus penitentiary insulin use: without penitentiary use Diabetes mellitus complication status: without complication Qualified Code(s): E11.9 - Type 2 diabetes mellitus without complications Assessment & Plan: (1) Pseudomonas urinary tract infection Current Visit: Yes Status: Acute Assessment & Plan: - UA with culture pending - Dx made from previous culture - CBC, CMP pending - Took 2 days of PO antibiotic OP - + temp 101- tylenol PRN - IVF - tele - BC x2 - Levaquin IV - PT eval for associated weakness 01/07 - UA + trace leukocytes - BC x2 pending - CBC. CMP reviewed - WBC 8.7 Code(s): N39.0 - URINARY TRACT INFECTION, SITE NOT SPECIFIED; B96.5 - PSEUDOMONAS (MALLEI) CAUSING DISEASES CLASSD ELSWHR (2) CHF (congestive heart failure) Current Visit: No Status: Chronic Assessment & Plan: - Continue Lasix - Not in acute exacerbation. Code(s): I50.9 - HEART FAILURE, UNSPECIFIED (3) Carotid artery disease Current Visit: No Status: Chronic Assessment & Plan: - Hx of R carotid endarectomy Code(s): I77.9 - DISORDER OF ARTERIES AND ARTERIOLES, UNSPECIFIED (4) Colostomy in place Current Visit: No Status: Chronic Assessment & Plan: - Noted - Pt requested colostomy at a previous visit and surgeon agreed to procedure to aide in wound healing on sacrum. - Pt states he is unable to care for self and hep found feces all over house. Code(s): Z93.3 - COLOSTOMY STATUS (5) Decubitus ulcer Current Visit: No Status: Chronic Qualifiers: Pressure injury location: sacral region Pressure injury stage: unstageable Qualified Code(s): L89.150 - Pressure ulcer of sacral region, unstageable Assessment & Plan: - Chronic - Follow [facility] every week. - PT eval for wound care - Wound culture pending - Levaquin and Vancomycin IV Code(s): L89.90 - PRESSURE ULCER OF UNSPECIFIED SITE, UNSPECIFIED STAGE (6) HTN (hypertension) Current Visit: No Status: Chronic Qualifiers: Assessment & Plan: - BP stable continue home meds Code(s): I10 - ESSENTIAL (PRIMARY) HYPERTENSION (7) Obesity (BMI 30-39.9) Current Visit: No Status: Chronic Assessment & Plan: - Advised ADA diet and exercise Code(s): E66.9 - OBESITY, UNSPECIFIED (8) Parkinson disease Current Visit: No Status: Chronic Assessment & Plan: - Continue home meds Code(s): G20.A1 - PARKINSON'S DIS W/O DYSKINESIA, W/O MENTION OF FLUCTUATIONS (9) Type II diabetes mellitus Current Visit: No Status: Chronic Qualifiers: Diabetes mellitus lobsterman insulin use: without penitentiary use Diabetes mellitus complication status: without complication Qualified Code(s): E11.9 - Type 2 diabetes mellitus without complications Assessment & Plan: - Continue Metformin - A1C 6.29- 12/03/24- controlled VTE: Heparin PPI: Protonix Next of KIN: Friend D/C plan: 1-2 days- pending placement Code status: SCO/DNR
[2025-01-07] MEDS: Glucophage 500 MG PO SCH (09:20)
[2025-01-07] MEDS: Sinemet 25/100 MG PO SCH (09:20)
[2025-01-07] MEDS: Klor Con PO SCH (09:21)
[2025-01-07] MEDS: Zestril 20 MG PO SCH (09:21)
[2025-01-07] MEDS: Lasix 40 MG PO SCH (09:21)
[2025-01-07] MEDS: VANCOMYCIN 1.25 GM/250 ML BAG 1.25 GM/250 ML PIGGYBACK IV SCH (09:27)
[2025-01-07] MEDS: PHARMACY DOSING REQUIRED: VANCOMYCIN IV STA (10:36)
[2025-01-07] MEDS: LEVOFLOXACIN 750MG/150ML D5W 750 MG/150 ML BAG IV SCH (11:58)
[2025-01-07] MEDS: HUMALOG SQ PRN (12:21)
[2025-01-08 05:32] LABS: Hematocrit 26.9 % (40.1-51.0); Hemoglobin 8.8 g/dL (13.7-17.5); Mean Cell Volume 84.3 fL (79.0-92.2); Mean Corpuscular Hemoglobin 27.6 pg (25.7-32.2); Mean Corpuscular Hgb Concent. 32.7 g/dL (32.3-36.5); Mean Platelet Volume 9.1 fL (9.4-12.4); Platelet Count 249 x10^3/uL (163-337); Red Blood Count 3.19 x10^6/uL (4.63-6.08); White Blood Count 11.5 x10^3/uL (4.23-9.07)
[2025-01-08 05:51] LABS: ALBUMIN 3.1 g/dL (3.5-5.0); BILIRUBIN,TOTAL 0.3 mg/dL (0.2-1.3); Calcium 8.6 mg/dL (8.4-10.2); Creatinine 1 0.8 mg/dL (0.66-1.25); EST GLOMERULAR FILTRATION RATE 91.2 ML/MIN; Potassium 4.6 mmol/L (3.5-5.1); Total Protein 5.7 g/dL (6.3-8.2)
--- NOTE | 2025-01-08 07:50 | PCM.NOTE ---
Date and Time: 01/08/25 0749 Subjective Assessment: 01/06/25 is a 79-year-old male with a medical history of Parkinsons disease, hypertension, diabetes, and a chronic, poorly healing sacral decubitus ulcer. He was recently hospitalized from January 02 to January 03 due to generalized weakness and falls. At that time, his laboratory results and urinalysis were unremarkable, and he was discharged home with plans for outpatient wound care follow-up. Following discharge, a urine culture from his admission grew Pseudomonas, and he was prescribed antibiotics as an outpatient. He reports that he began taking the antibiotics as directed but has continued to feel unwell, prompting a visit to his primary care provider earlier today. The patient receives home health care and has a caregiver, but he reports being unable to manage his care independently. He was recently found with feces throughout his home, raising concerns about his ability to care for himself. Although he had previously declined intermediate placement during his last admission, he now expresses interest in transferring to [facility]. He has been dealing with a sacral ulcer since July and reports feeling recurrent generalized weakness after completing antibiotic courses. He recently finished a round of antibiotics for his sacral wound and notes that prior to this he was walking independently. One week ago, he began using a cane, and he now requires a rolling walker for ambulation. He denies fevers, headaches, chest pain, shortness of breath, nausea, vomiting, diarrhea, or any changes in his ostomy output. However, he currently has a temperature of 101.4F. Blood cultures have been obtained, labs as well as urinalysis with culture is pending. He will be started on IV antibiotics for a presumed urinary tract infection. Case management will continue to assess for appropriate placement. 01/07/25 Pt resting in bed. He states he is starting to feel better today. Wound culture of coccyx and BC x2 pending. No fever since admission. He states he continues to have wound drainage and this may be the source of infection. UA non-concerning. WBC 8.7 today. Continue Levaquin added vancomycin for diabetic wound. Case management to discuss placement. Pt deneis CP, SOB, abd. pain, N/V/D. + Weakness. 01/08/25 Pt sitting up in bed eating breakfast. BC x2 and wound cultures non-concerning. Will stop antibiotics. Discussed dressing change plan per wound care physician of three times weekly. PLan is to d/c to Rehab Friday. He denies any further concerns at this time. - Review of Systems Constitutional: No Fever, No Chills Eyes: No Symptoms Ears, Nose, & Throat: No Symptoms Respiratory: No Cough, No Short Of Breath Cardiac: Edema (BLLE- refused TEDS), No Chest Pain, No Syncope Abdominal/Gastrointestinal: No Abdominal Pain, No Nausea, No Vomiting, No Diarrhea Genitourinary Symptoms: No Dysuria Musculoskeletal: No Back Pain, No Neck Pain Skin: Skin Lesions (wound on coccyx), No Rash Neurological: No Dizziness, No Focal Weakness, No Sensory Changes Psychological: No Symptoms Endocrine: No Symptoms Hematologic/Lymphatic: No Symptoms Immunological/Allergic: No Symptoms Objective Exam General Appearance: no apparent distress, alert Neurologic Exam: alert, oriented x 3, cooperative, normal mood/affect, nml cerebellar function, sensation nml, No motor deficits Skin Exam: normal color, warm, dry, other (coccyx wound- dressing change yesterday) Wound Assessment: Skin/Wound Assessment Wound/Incision Assessment Start: 01/06/25 17:20 Text: Status: Active Freq: Q6H Protocol: Document 01/08/25 02:00 LB (Rec: 01/08/25 03:56 LB [id number]) Wound/Incision Assessment Sacrum Wound Assessment Shift Assessment Wound Type Pressure Ulcer Dressing Status Dry & Intact Drainage Amount None Comment dressing in place, CDI Wound Photo Photo Taken No Eye Exam: PERRL, EOMI, eyes nml inspection Ears, Nose, Throat Exam: normal ENT inspection, pharynx normal, moist mucous membranes Neck Exam: normal inspection, non-tender, supple, full range of motion Respiratory Exam: normal breath sounds, lungs clear, No respiratory distress Cardiovascular Exam: regular rate/rhythm, normal heart sounds, edema (BLLE) Gastrointestinal/Abdomen Exam: soft, No tenderness, No mass Extremity Exam: normal inspection, normal range of motion, joint swelling Back Exam: normal inspection, normal range of motion, No CVA tenderness, No vertebral tenderness Male Genitalia Exam: deferred Rectal Exam: deferred Objective Data Vital Signs: Vital Signs - 24 hr Temp Pulse Resp BP Pulse Ox 01/08/25 07:25 97.7 F 72 14 141/67 95 01/08/25 03:49 98.1 F 74 16 149/67 97 01/08/25 00:00 97.8 F 68 17 141/66 95 01/07/25 19:22 97.6 F 72 16 132/62 95 01/07/25 16:00 97.3 F 64 20 119/58 97 01/07/25 12:00 97.7 F 82 22 115/57 95 Pain Assessment - Last Documented Pain Intensity 0 Pain Scale Used [facility] Intake and Output: Intake & Output 01/05/25 01/06/25 01/07/25 01/08/25 11:59 11:59 11:59 11:59 Intake Total 1080 2000 Output Total 3200 1100 Balance -2120 901 Weight 109.8 kg Lab Results: Lab Results-Last 24 Hours 01/07/25 01/07/25 01/07/25 Range/Units 11:53 16:22 21:01 WBC (4.23-9.07) x10^3/uL RBC (4.63-6.08) x10^6/uL Hgb (13.7-17.5) g/dL Hct (40.1-51.0) % MCV (79.0-92.2) fL MCH (25.7-32.2) pg MCHC (32.3-36.5) g/dL RDW (11.6-14.4) % Plt Count (163-337) x10^3/uL MPV (9.4-12.4) fL Sodium (135-145) mmol/L Potassium (3.5-5.1) mmol/L Chloride (98-107) mmol/L Carbon Dioxide (22-30) mmol/L Anion Gap (5-15) MEQ/L BUN (9-20) mg/dL Creatinine (0.66-1.25) mg/dL Estimated GFR ML/MIN Glucose (74-106) mg/dL POC Glucometer 246 H 128 H 240 H (74 to 106) mg/dL Calcium (8.4-10.2) mg/dL Total Bilirubin (0.2-1.3) mg/dL AST (17-59) U/L ALT (0-50) U/L Alkaline Phosphatase (38-126) U/L Serum Total Protein (6.3-8.2) g/dL Albumin (3.5-5.0) g/dL 01/08/25 01/08/25 01/08/25 Range/Units 05:29 05:29 06:49 WBC 11.5 H (4.23-9.07) x10^3/uL RBC 3.19 L (4.63-6.08) x10^6/uL Hgb 8.8 L (13.7-17.5) g/dL Hct 26.9 L (40.1-51.0) % MCV 84.3 (79.0-92.2) fL MCH 27.6 (25.7-32.2) pg MCHC 32.7 (32.3-36.5) g/dL RDW 14.0 (11.6-14.4) % Plt Count 249 (163-337) x10^3/uL MPV 9.1 L (9.4-12.4) fL Sodium 135 (135-145) mmol/L Potassium 4.6 (3.5-5.1) mmol/L Chloride 103 (98-107) mmol/L Carbon Dioxide 21 L (22-30) mmol/L Anion Gap 16.0 H (5-15) MEQ/L BUN 25 H (9-20) mg/dL Creatinine 0.80 (0.66-1.25) mg/dL Estimated GFR 91.2 ML/MIN Glucose 146 H (74-106) mg/dL POC Glucometer 144 H (74 to 106) mg/dL Calcium 8.6 (8.4-10.2) mg/dL Total Bilirubin 0.30 (0.2-1.3) mg/dL AST 31 (17-59) U/L ALT 8 (0-50) U/L Alkaline Phosphatase 119 (38-126) U/L Serum Total Protein 5.7 L (6.3-8.2) g/dL Albumin 3.1 L (3.5-5.0) g/dL Medications: Medications Generic Name Dose Route Start Last Admin Trade Name Freq PRN Reason Stop Dose Admin Acetaminophen 650 mg 01/06/25 16:56 01/06/25 17:00 Acetaminophen 325 Mg Tablet PO 02/05/25 16:55 650 mg Q6H PRN PRN Administration PAIN AND/OR FEVER Hydrocodone Bitart/Acetaminophen 1 tab 01/07/25 02:09 01/07/25 22:23 Hydrocodone/Apap 5/325 1 Tab Tablet PO 01/12/25 02:08 1 tab Q6H PRN PRN Administration PAIN Carbidopa/Levodopa 1 tab 01/07/25 10:00 01/07/25 22:24 Carbidopa/Levodopa / 1 Tab Tablet PO 02/06/25 09:59 1 tab QID CONI Administration Device 1 01/09/25 09:30 Therapuetic Drug Level Monitor Each IJ 01/09/25 09:31 1XONLY ONE Ezetimibe 10 mg 01/06/25 22:00 01/07/25 22:24 Ezetimibe 10 Mg Tab PO 02/05/25 21:59 10 mg QHS CONI Administration Furosemide 40 mg 01/07/25 10:00 01/07/25 09:21 Furosemide 40 Mg Tablet PO 02/06/25 09:59 40 mg DAILY CONI Administration Heparin Sodium (Beef Lung) 5,000 unit 01/06/25 22:00 01/07/25 22:23 Heparin 5000 Units/0.5 Ml 5,000 Unit/0.5 Ml Syr SQ 02/05/25 21:59 5,000 unit BID CONI Administration Levofloxacin/Dextrose 750 mg in 150 mls @ 100 mls/hr 01/07/25 12:00 01/07/25 11:58 Levofloxacin 750mg/150ml D5w IV 02/06/25 11:59 100 mls/hr NOON CNOI Administration Vancomycin HCl 1.25 gm in 250 mls @ 166.667 mls/hr 01/07/25 10:00 01/07/25 22:31 Vancomycin 1.25 Gm/250 Ml Bag IV 01/10/25 09:59 166.667 mls/hr Q12HT CONI Administration Insulin Human Lispro 0 unit 01/07/25 12:01 01/07/25 22:23 Insulin Lispro 1 Unit SQ 02/06/25 12:00 5 unit UD PRN Administration HYPERGLYCEMIA Lisinopril 20 mg 01/07/25 10:00 01/07/25 09:21 Lisinopril 20 Mg Tablet PO 02/06/25 09:59 20 mg DAILY CONI Administration Metformin HCl 500 mg 01/07/25 10:00 01/07/25 09:20 Metformin Hcl 500 Mg Tablet PO 02/06/25 09:59 500 mg DAILY CONI Administration Pantoprazole Sodium 20 mg 01/06/25 18:00 01/07/25 09:20 Pantoprazole 20 Mg Tab PO 02/05/25 17:59 20 mg DAILY CONI Administration Potassium Chloride 10 meq 01/07/25 10:00 01/07/25 09:21 Potassium Chloride Tab 10 Meq Tab PO 02/06/25 09:59 10 meq DAILY CONI Administration Simvastatin 40 mg 01/06/25 22:00 01/07/25 22:24 Simvastatin 20 Mg Tablet PO 02/05/25 21:59 40 mg HS CONI Administration Discontinued Medications Generic Name Dose Route Start Last Admin Trade Name Freq PRN Reason Stop Dose Admin Carbidopa/Levodopa Confirm 01/06/25 21:18 Carbidopa/Levodopa 25/100 1 Tab Tablet Administered 01/06/25 21:19 Dose 1 tab .ROUTE .STK-MED ONE Levofloxacin/Dextrose 750 mg in 150 mls @ 100 mls/hr 01/06/25 17:00 01/06/25 17:59 Levofloxacin 750mg/150ml D5w IV 02/05/25 16:59 100 mls/hr Q24H10 CONI Administration Sodium Chloride 1,000 mls @ 50 mls/hr 01/06/25 17:15 01/07/25 16:07 Sodium Chloride 0.9% 1000 Ml IV 02/05/25 17:14 50 mls/hr .Q20H CONI Administration Non-Formulary Medication 1 tab 01/06/25 22:00 01/06/25 21:55 Carbidopa/Levodopa [Carbidopa-Levo 25-100 Mg Odt] PO 02/05/25 21:59 1 tab QID CONI Administration Non-Formulary Medication 80 mg 01/06/25 22:00 Atorvastatin Calcium [Lipitor] PO 02/05/25 21:59 QHS CONI Non-Formulary Medication 1 each 01/07/25 09:09 01/07/25 10:36 Pharmacy Dose Request: Vancomycin 1 Each IV 01/07/25 09:10 Not Given STAT STA Simvastatin Confirm 01/06/25 21:21 Simvastatin 20 Mg Tablet Administered 01/06/25 21:22 Dose 40 mg .ROUTE .STK-MED ONE Multi-Disciplinary Progress Notes: Multi-Disciplinary Progress Notes 01/07/25 12:52 Case Management Note by [facility] WILL BE READY FOR PATIENT ON Friday01/09/25. PATIENT'S SIG OTHER STATED SHE WOULD BE ABLE TO GIVE PATIENT A RIDE TO FACILITY IF READY FOR DC ON FRIDAY. Initialized on 01/07/25 12:52 - END OF NOTE 01/07/25 12:23 Case Management Note by Noa Phan PATIENT HAS C [employer]UTIONS. THEY WERE NOTIFIED PATIENT HERE INPT. THEY WILL NEED NOTIFIED AT TIME OF DC AT [phone]. THEY WILL NEED FAXED THE DC INSTRUCTIONS, DC MED LIST, DC SUMMARY TO [phone] Initialized on 01/07/25 12:23 - END OF NOTE 01/07/25 12:08 Case Management Note by Noa Phan FULL REFERRAL WITH [facility] HAS BEEN FAXED TO [facility] PER PATIENT REQUEST Initialized on 01/07/25 12:08 - END OF NOTE 01/07/25 11:30 (created 01/07/25 12:08) Case Management Note by Noa Phan COMPLETE- NO LEVEL II REQUIRED. COPY PLACED ON CHART Initialized on 01/07/25 12:08 - END OF NOTE 01/07/25 09:24 Pharmacy Note by Osiel Jovel Vancomycin dosed at 1.25gm iv q12h. Trough on Friday. Initialized on 01/07/25 09:24 - END OF NOTE Assessment/Plan (1) Pseudomonas urinary tract infection Current Visit: Yes Status: Acute Code(s): N39.0 - URINARY TRACT INFECTION, SITE NOT SPECIFIED; B96.5 - PSEUDOMONAS (MALLEI) CAUSING DISEASES CLASSD ELSWHR (2) CHF (congestive heart failure) Current Visit: No Status: Chronic Code(s): I50.9 - HEART FAILURE, UNSPECI FIED (3) Carotid artery disease Current Visit: No Status: Chronic Code(s): I77.9 - DISORDER OF ARTERIES AND ARTERIOLES, UNSPECIFIED (4) Colostomy in place Current Visit: No Status: Chronic Code(s): Z93.3 - COLOSTOMY STATUS (5) Decubitus ulcer Current Visit: No Status: Chronic Qualifiers: Pressure injury location: sacral region Pressure injury stage: unstageable Qualified Code(s): L89.150 - Pressure ulcer of sacral region, unstageable Code(s): L89.90 - PRESSURE ULCER OF UNSPECIFIED SITE, UNSPECIFIED STAGE (6) HTN (hypertension) Current Visit: No Status: Chronic Qualifiers: Code(s): I10 - ESSENTIAL (PRIMARY) HYPERTENSION (7) Obesity (BMI 30-39.9) Current Visit: No Status: Chronic Code(s): E66.9 - OBESITY, UNSPECIFIED (8) Parkinson disease Current Visit: No Status: Chronic Code(s): G20.A1 - PARKINSON'S DIS W/O DYSKINESIA, W/O MENTION OF FLUCTUATIONS (9) Type II diabetes mellitus Current Visit: No Status: Chronic Qualifiers: Diabetes mellitus [employer] insulin use: without shelter use Diabetes mellitus complication status: without complication Qualified Code(s): E11.9 - Type 2 diabetes mellitus without complications Assessment & Plan: (1) Pseudomonas urinary tract infection Current Visit: Yes Status: Acute Assessment & Plan: - UA with culture pending - Dx made from previous culture - CBC, CMP pending - Took 2 days of PO antibiotic OP - + temp 101- tylenol PRN - IVF - tele - BC x2 - Levaquin IV - PT eval for associated weakness 01/07 - UA + trace leukocytes - BC x2 pending - CBC. CMP reviewed - WBC 8.7 01/08 - CBC, CMP reviewed - BC x2 negative - Stop IV antibiotics - WBC 11.5 Code(s): N39.0 - URINARY TRACT INFECTION, SITE NOT SPECIFIED; B96.5 - PSEUDOMONAS (MALLEI) CAUSING DISEASES CLASSD ELSWHR (2) CHF (congestive heart failure) Current Visit: No Status: Chronic Assessment & Plan: - Continue Lasix - Not in acute exacerbation. - +3 pitting edmea- TEDS ordered- pt refused - Elevate legs Code(s): I50.9 - HEART FAILURE, UNSPECIFIED (3) Carotid artery disease Current Visit: No Status: Chronic Assessment & Plan: - Hx of R carotid endarectomy Code(s): I77.9 - DISORDER OF ARTERIES AND ARTERIOLES, UNSPECIFIED (4) Colostomy in place Current Visit: No Status: Chronic Assessment & Plan: - Noted - Pt requested colostomy at a previous visit and surgeon agreed to procedure to aide in wound healing on sacrum. - Pt states he is unable to care for self and hep found feces all over house. Code(s): Z93.3 - COLOSTOMY STATUS (5) Decubitus ulcer Current Visit: No Status: Chronic Qualifiers: Pressure injury location: sacral region Pressure injury stage: unstageable Qualified Code(s): L89.150 - Pressure ulcer of sacral region, unstageable Assessment & Plan: - Chronic - Follow [facility] every week. - PT eval for wound care - Wound culture pending - Levaquin and Vancomycin IV - Dressing changes three times weekly unless needed otherwise - Dressing change 01/07/25 - Wound culture reviewed 01/08/25 Code(s): L89.90 - PRESSURE ULCER OF UNSPECIFIED SITE, UNSPECIFIED STAGE (6) HTN (hypertension) Current Visit: No Status: Chronic Qualifiers: Assessment & Plan: - BP stable continue home meds Code(s): I10 - ESSENTIAL (PRIMARY) HYPERTENSION (7) Obesity (BMI 30-39.9) Current Visit: No Status: Chronic Assessment & Plan: - Advised ADA diet and exercise Code(s): E66.9 - OBESITY, UNSPECIFIED (8) Parkinson disease Current Visit: No Status: Chronic Assessment & Plan: - Continue home meds Code(s): G20.A1 - PARKINSON'S DIS W/O DYSKINESIA, W/O MENTION OF FLUCTUATIONS (9) Type II diabetes mellitus Current Visit: No Status: Chronic Qualifiers: Diabetes mellitus shelter insulin use: without shelter use Diabetes mellitus complication status: without complication Qualified Code(s): E11.9 - Type 2 diabetes mellitus without complications Assessment & Plan: - Continue Metformin - A1C 6.29- 12/03/24- controlled VTE: Heparin PPI: Protonix Next of KIN: Friend D/C plan: Friday evening for rehab Code status: SCO/DNR
[2025-01-09 03:54] VITALS: RESP 16
[2025-01-09 06:07] LABS: Hematocrit 26.6 % (40.1-51.0); Hemoglobin 8.6 g/dL (13.7-17.5); Mean Cell Volume 84.4 fL (79.0-92.2); Mean Corpuscular Hemoglobin 27.3 pg (25.7-32.2); Mean Corpuscular Hgb Concent. 32.3 g/dL (32.3-36.5); Mean Platelet Volume 9.3 fL (9.4-12.4); Platelet Count 251 x10^3/uL (163-337); Red Blood Count 3.15 x10^6/uL (4.63-6.08); Red Cell Distribution Width 14.2 % (11.6-14.4); White Blood Count 9.4 x10^3/uL (4.23-9.07)
[2025-01-09 06:13] LABS: ALBUMIN 3.2 g/dL (3.5-5.0); ANION GAP 14.1 MEQ/L (5-15); BILIRUBIN,TOTAL 0.3 mg/dL (0.2-1.3); Calcium 8.7 mg/dL (8.4-10.2); Creatinine 1 0.84 mg/dL (0.66-1.25); EST GLOMERULAR FILTRATION RATE 89.8 ML/MIN; Potassium 4.3 mmol/L (3.5-5.1); Total Protein 6.3 g/dL (6.3-8.2)
[2025-01-09 07:18] VITALS: BP 147/70; PULSE 74; TEMP 97.6; O2SAT 93
--- NOTE | 2025-01-09 07:51 | PCM.DS ---
Discharge Summary Date of Admission: 01/06/25 16:03 Date of Discharge: 01/09/25 Admitting Physician: RHETT DEVRIES MD Primary Care Provider: LENA DUGGAN Allergies Allergies No Known Drug Allergies Allergy (Verified 01/06/25 16:21) Hospital Summary - Hospital Course Hospital Course: 01/06/25 is a 79-year-old male with a medical history of Parkinsons disease, hypertension, diabetes, and a chronic, poorly healing sacral decubitus ulcer. He was recently hospitalized from January 02 to January 03 due to generalized weakness and falls. At that time, his laboratory results and urinalysis were unremarkable, and he was discharged home with plans for outpatient wound care follow-up. Following discharge, a urine culture from his admission grew Pseudomonas, and he was prescribed antibiotics as an outpatient. He reports that he began taking the antibiotics as directed but has continued to feel unwell, prompting a visit to his primary care provider earlier today. The patient receives home health care and has a caregiver, but he reports being unable to manage his care independently. He was recently found with feces throughout his home, raising concerns about his ability to care for himself. Although he had previously declined prison placement during his last admission, he now expresses interest in transferring to [facility]. He has been dealing with a sacral ulcer since July and reports feeling recurrent generalized weakness after completing antibiotic courses. He recently finished a round of antibiotics for his sacral wound and notes that prior to this he was walking independently. One week ago, he began using a cane, and he now requires a rolling walker for ambulation. He denies fevers, headaches, chest pain, shortness of breath, nausea, vomiting, diarrhea, or any changes in his ostomy output. However, he currently has a temperature of 101.4F. Blood cultures have been obtained, labs as well as urinalysis with culture is pending. He will be started on IV antibiotics for a presumed urinary tract infection. Case management will continue to assess for appropriate placement. 01/07/25 Pt resting in bed. He states he is starting to feel better today. Wound culture of coccyx and BC x2 pending. No fever since admission. He states he continues to have wound drainage and this may be the source of infection. UA non-concerning. WBC 8.7 today. Continue Levaquin added vancomycin for diabetic wound. Case management to discuss placement. Pt deneis CP, SOB, abd. pain, N/V/D. + Weakness. 01/08/25 Pt sitting up in bed eating breakfast. BC x2 and wound cultures non-concerning. Will stop antibiotics. Discussed dressing change plan per wound care physician of three times weekly. PLan is to d/c to Rehab Friday evening. He denies any further concerns at this time. 01/09/25 Pt resting in the chair. He is scheduled to go to [facility] for rehab. Labs and cultures reviewed with pt and non-concerning. Pt denies any further concerns at this time. - Vitals & Intake/Output Vital Signs: Vital Signs Temperature 97.6 F 01/09/25 07:17 Pulse Rate 74 01/09/25 07:17 Respiratory Rate 16 01/09/25 07:17 Blood Pressure 147/70 01/09/25 07:17 O2 Sat by Pulse Oximetry 93 L 01/09/25 07:17 Intake & Output: Intake & Output 01/06/25 01/07/25 01/08/25 01/09/25 11:59 11:59 11:59 11:59 Intake Total 1080 2341 945 Output Total 3200 1350 2300 Balance -2120 991 -1355 Weight 109.8 kg - Lab Result Diagrams: 01/09/25 05:48 01/09/25 05:48 Lab Results-Last 24 Hrs: Lab Results-Last 24 Hours 01/08/25 01/08/25 01/08/25 Range/Units 11:40 16:25 20:28 WBC (4.23-9.07) x10^3/uL RBC (4.63-6.08) x10^6/uL Hgb (13.7-17.5) g/dL Hct (40.1-51.0) % MCV (79.0-92.2) fL MCH (25.7-32.2) pg MCHC (32.3-36.5) g/dL RDW (11.6-14.4) % Plt Count (163-337) x10^3/uL MPV (9.4-12.4) fL Sodium (135-145) mmol/L Potassium (3.5-5.1) mmol/L Chloride (98-107) mmol/L Carbon Dioxide (22-30) mmol/L Anion Gap (5-15) MEQ/L BUN (9-20) mg/dL Creatinine (0.66-1.25) mg/dL Estimated GFR ML/MIN Glucose (74-106) mg/dL POC Glucometer 155 H 138 H 225 H (74 to 106) mg/dL Calcium (8.4-10.2) mg/dL Total Bilirubin (0.2-1.3) mg/dL AST (17-59) U/L ALT (0-50) U/L Alkaline Phosphatase (38-126) U/L Serum Total Protein (6.3-8.2) g/dL Albumin (3.5-5.0) g/dL 01/09/25 01/09/25 01/09/25 Range/Units 05:48 05:48 07:28 WBC 9.4 H (4.23-9.07) x10^3/uL RBC 3.15 L (4.63-6.08) x10^6/uL Hgb 8.6 L (13.7-17.5) g/dL Hct 26.6 L (40.1-51.0) % MCV 84.4 (79.0-92.2) fL MCH 27.3 (25.7-32.2) pg MCHC 32.3 (32.3-36.5) g/dL RDW 14.2 (11.6-14.4) % Plt Count 251 (163-337) x10^3/uL MPV 9.3 L (9.4-12.4) fL Sodium 137 (135-145) mmol/L Potassium 4.3 (3.5-5.1) mmol/L Chloride 103 (98-107) mmol/L Carbon Dioxide 24 (22-30) mmol/L Anion Gap 14.1 (5-15) MEQ/L BUN 29 H (9-20) mg/dL Creatinine 0.84 (0.66-1.25) mg/dL Estimated GFR 89.8 ML/MIN Glucose 160 H (74-106) mg/dL POC Glucometer 151 H (74 to 106) mg/dL Calcium 8.7 (8.4-10.2) mg/dL Total Bilirubin 0.30 (0.2-1.3) mg/dL AST 26 (17-59) U/L ALT 9 (0-50) U/L Alkaline Phosphatase 119 (38-126) U/L Serum Total Protein 6.3 (6.3-8.2) g/dL Albumin 3.2 L (3.5-5.0) g/dL Micro Results-Entire Visit: Microbiology 01/06/25 17:30 Blood Culture - Preliminary Blood 01/06/25 17:05 Blood Culture - Preliminary Blood 01/07/25 11:46 Wound Culture - Preliminary Coccyx ORGANISMS ISOLATED ARE CONSISTENT WITH NORMAL SKIN STAR LIGHT GROWTH, NO PREDOMINANT ORGANISM Accuchecks Date 01/09/25 Date 01/08/25 Date 01/08/25 Date 01/08/25 Time 07:34 Time 21:00 Time 17:45 Time 12:06 - Procedures and Test Procedures and Tests throughout Hospitalization: Therapy Orders & Screens 01/06/25 17:16 PT Eval & Treat ( Order) ONCE Reason for Eval:: weakness and wound care of coccyx Diagnosis: UTI 01/06/25 17:20 OT Screen per Nursing Assess ONCE Comment: Protocol Order Physician Instructions: Greater than 3 points order OT Admission Screening Reason For Exam: Triggered on Admission Diagnosis: UTI Open Wound/Cellutlitis/Pressure Ulcers: Yes Acute Fx/ORIF/Change in wt bearing status: Yes Severe MUSCULOSKELETAL pain: No ADL Dysfunction: Yes Acute CVA w/Hemiparesis/Hemiplegia: No Decreased Functional Mobility/Strength: Yes Sprain/Strain: No Acute Post-op Mobility Dysfunction: No Total Points: 14 PT Screen per Nursing Assess ONCE Comment: Protocol Order Physician Instructions: Greater than 3 points order PT Admission Screenin Reason For Exam: Triggered on Admission Diagnosis: UTI Open Wound/Cellutlitis/Pressure Ulcers: Yes Acute Fx/ORIF/Change in wt bearing status: Yes Severe MUSCULOSKELETAL pain: No ADL Dysfunction: Yes Acute CVA w/Hemiparesis/Hemiplegia: No Decreased Functional Mobility/Strength: Yes Sprain/Strain: No Acute Post-op Mobility Dysfunction: No Total Points: 14 Discharge Exam General Appearance: no apparent distress, alert, obese Neurologic Exam: alert, oriented x 3, cooperative, normal mood/affect, nml cerebellar function, sensation nml, No motor deficits Eye Exam: PERRL, EOMI, eyes nml inspection Ears, Nose, Throat Exam: normal ENT inspection, pharynx normal, moist mucous membranes Neck Exam: normal inspection, non-tender, supple, full range of motion Respiratory Exam: normal breath sounds, lungs clear, No respiratory distress Cardiovascular Exam: regular rate/rhythm, normal heart sounds Gastrointestinal/Abdomen Exam: soft, No tenderness, No mass Male Genitalia Exam: deferred Rectal Exam: deferred Back Exam: normal inspection, normal range of motion, No CVA tenderness, No vertebral tenderness Extremity Exam: normal inspection, normal range of motion Skin Exam: normal color, warm, dry Wound Assessment: Skin/Wound Assessment Wound/Incision Assessment Start: 01/06/25 17:20 Text: Status: Active Freq: Q6H Protocol: Document 01/09/25 02:00 LB (Rec: 01/09/25 02:16 LB [id number]) Wound/Incision Assessment Sacrum Wound Assessment Shift Assessment Wound Type Pressure Ulcer Dressing Status Dry & Intact Drainage Amount None Primary Dressing allevyn Comment dressing in place CDI. Wound Photo Photo Taken No Final Diagnosis/Problem List - Final Discharge Diagnosis/Problem (1) Pseudomonas urinary tract infection Current Visit: Yes Status: Acute Code(s): N39.0 - URINARY TRACT INFECTION, SITE NOT SPECIFIED; B96.5 - PSEUDOMONAS (MALLEI) CAUSING DISEASES CLASSD ELSWHR (2) CHF (congestive heart failure) Current Visit: No Status: Chronic Code(s): I50.9 - HEART FAILURE, UNSPECIFIED (3) Carotid artery disease Current Visit: No Status: Chronic Code(s): I77.9 - DISORDER OF ARTERIES AND ARTERIOLES, UNSPECIFIED (4) Colostomy in place Current Visit: No Status: Chronic Code(s): Z93.3 - COLOSTOMY STATUS (5) Decubitus ulcer Current Visit: No Status: Chronic Code(s): L89.90 - PRESSURE ULCER OF UNSPECIFIED SITE, UNSPECIFIED STAGE (6) HTN (hypertension) Current Visit: No Status: Chronic Code(s): I10 - ESSENTIAL (PRIMARY) HYPERTENSION (7) Obesity (BMI 30-39.9) Current Visit: No Status: Chronic Code(s): E66.9 - OBESITY, UNSPECIFIED (8) Parkinson disease Current Visit: No Status: Chronic Code(s): G20.A1 - PARKINSON'S DIS W/O DYSKINESIA, W/O MENTION OF FLUCTUATIONS (9) Type II diabetes mellitus Current Visit: No Status: Chronic Assessment & Plan: (1) Pseudomonas urinary tract infection Current Visit: Yes Status: Acute Assessment & Plan: - UA with culture pending - Dx made from previous culture - CBC, CMP pending - Took 2 days of PO antibiotic OP - + temp 101- tylenol PRN - IVF - tele - BC x2 - Levaquin IV - PT eval for associated weakness 01/07 - UA + trace leukocytes - BC x2 pending - CBC. CMP reviewed - WBC 8.7 01/08 - CBC, CMP reviewed - BC x2 negative - Stop IV antibiotics - WBC 11.5 01/09 - CBC, CMP reviewed Code(s): N39.0 - URINARY TRACT INFECTION, SITE NOT SPECIFIED; B96.5 - PSEUDOMONAS (MALLEI) CAUSING DISEASES CLASSD ELSWHR (2) CHF (congestive heart failure) Current Visit: No Status: Chronic Assessment & Plan: - Continue Lasix - Not in acute exacerbation. - +3 pitting edmea- TEDS ordered- pt refused - Elevate legs Code(s): I50.9 - HEART FAILURE, UNSPECIFIED (3) Carotid artery disease Current Visit: No Status: Chronic Assessment & Plan: - Hx of R carotid endarectomy Code(s): I77.9 - DISORDER OF ARTERIES AND ARTERIOLES, UNSPECIFIED (4) Colostomy in place Current Visit: No Status: Chronic Assessment & Plan: - Noted - Pt requested colostomy at a previous visit and surgeon agreed to procedure to aide in wound healing on sacrum. - Pt states he is unable to care for self and hep found feces all over house. Code(s): Z93.3 - COLOSTOMY STATUS (5) Decubitus ulcer Current Visit: No Status: Chronic Qualifiers: Pressure injury location: sacral region Pressure injury stage: unstageable Qualified Code(s): L89.150 - Pressure ulcer of sacral region, unstageable Assessment & Plan: - Chronic - Follow [facility] every week. - PT eval for wound care - Wound culture pending - Levaquin and Vancomycin IV - Dressing changes three times weekly unless needed otherwise - Dressing change 01/07/25 - Wound culture reviewed 01/08/25 Code(s): L89.90 - PRESSURE ULCER OF UNSPECIFIED SITE, UNSPECIFIED STAGE (6) HTN (hypertension) Current Visit: No Status: Chronic Qualifiers: Assessment & Plan: - BP stable continue home meds Code(s): I10 - ESSENTIAL (PRIMARY) HYPERTENSION (7) Obesity (BMI 30-39.9) Current Visit: No Status: Chronic Assessment & Plan: - Advised ADA diet and exercise Code(s): E66.9 - OBESITY, UNSPECIFIED (8) Parkinson disease Current Visit: No Status: Chronic Assessment & Plan: - Continue home meds Code(s): G20.A1 - PARKINSON'S DIS W/O DYSKINESIA, W/O MENTION OF FLUCTUATIONS (9) Type II diabetes mellitus Current Visit: No Status: Chronic Qualifiers: Diabetes mellitus longterm insulin use: without longterm use Diabetes mellitus complication status: without complication Qualified Code(s): E11.9 - Type 2 diabetes mellitus without complications Assessment & Plan: - Continue Metformin - A1C 6.29- 12/03/24- controlled - Discharge Discharge Date: 01/09/25 ([facility]) Disposition: XFER OTHER Condition: Stable Prescriptions: Continue lisinopriL [Zestril] 40 mg PO DAILY Metformin HCl 500 mg [Glucophage 500 MG] 500 mg PO DAILY Ezetimibe 10 mg PO QHS Atorvastatin Calcium [Lipitor] 80 mg PO QHS Furosemide 40 mg [Lasix 40 MG] 40 mg PO DAILY Potassium Chloride 10 meq PO DAILY Acetaminophen 325 mg [Tylenol 325 mg] 650 mg PO Q6HPRN PRN PRN Reason: FEVER OR PAIN Carbidopa/Levodopa [Carbidopa-Levo 25-100 mg Odt] 1 tab PO QID Hydrocodone/Acetaminophen [Hydrocodone-Acetamin 5-325 mg] 1 tab PO Q6HPRN PRN MDD 4 PRN Reason: Pain Metoprolol Tartrate 25 mg [Lopressor 25MG Tab] 25 mg PO BID Folic Acid 1 mg [Folate 1 mg] 1 mg PO DAILY Follow up with: LENA DUGGAN MD [Primary Care Provider, [facility]]
[2025-01-09] MEDS ORDERED: TROUGH DRUG LEVELS IJ ONE (09:30)
== END 2025-01-09 10:43 | DRG 690 ==
LOC: MED SURG 16:03 → OBSVTOIN 16:03
PROVIDERS: ADMIT Internal Medicine; ATTEND Internal Medicine
DX: N39.0 Urinary tract infection, site not specified (principal); B96.5 Pseudomonas (aeruginosa) (mallei) (pseudomallei) as the cause of diseases classified elsewhere; I11.0 Hypertensive heart disease with heart failure; I50.9 Heart failure, unspecified; I77.9 Disorder of arteries and arterioles, unspecified; Z93.3 Colostomy status; L89.90 Pressure ulcer of unspecified site, unspecified stage; E66.9 Obesity, unspecified; G20.A1 Parkinson's disease without dyskinesia, without mention of fluctuations; E11.9 Type 2 diabetes mellitus without complications; E78.5 Hyperlipidemia, unspecified; Z79.899 Other long term (current) drug therapy
CPT/HCPCS: 36415; 80053; 81001; 82550; 82947; 84134; 85027; 87040; 87070; 87077; 87186; J1644; J1817; J1956; Q3014; A9270-GY; J3370

== ENCOUNTER 2025-04-08 08:51 | Inpatient (IN) | payer MEDICARE ==
--- NOTE | 2025-04-08 09:05 | ERPHSYRPT ---
- History of Present Illness Time Seen by Provider: 04/08/25 09:00 Source: patient, EMS, old records Exam Limitations: no limitations Physician History: This is a 79-year-old white male patient brought into the emergency department by the paramedics and is a patient of Dr. Duggan with the complaint of hypotension and weakness as well as associated dizziness this morning. Per patient report, the patient states that he was up and about yesterday and did not have the weakness dizziness that he has today. In reviewing old inpatient charts including the most recent admission and discharge summary notes in December 2024, the patient does have a history of chronic generalized weakness, falls and bilateral lower extremity pain. His only pain complaint today is bilateral lower extremity pain. He is not on any new medications as far as he knows. In review of his listed medications there are no anticoagulation medications. Patient denies chest pain. Patient denies abdominal pain. There is been no change in his colostomy output. Patient has a history of hypertension (takes furosemide, lisinopril and metoprolol), history of Parkinson's disease, hyperlipidemia, diabetes and chronic decubitus ulcer. On arrival to the emergency department, his blood pressure is 60/36 with a heart rate in the 70s. His room air oxygen saturation level is 98%. Timing/Duration: today Severity: moderate Associated Symptoms: weakness, No nausea, No vomiting, No abdominal pain, No shortness of breath, No chest pain, No fever Allergies/Adverse Reactions: No Known Drug Allergies Allergy (Verified 01/06/25 16:21) Home Medications: lisinopriL [Zestril] 40 mg PO DAILY 12/11/15 [History] Atorvastatin Calcium [Lipitor] 80 mg PO QHS 06/09/19 [History] Ezetimibe 10 mg PO QHS 06/09/19 [History] Metformin HCl 500 mg [Glucophage 500 MG] 500 mg PO DAILY 06/09/19 [History] Furosemide 40 mg [Lasix 40 MG] 80 mg PO BID 08/14/24 [History] Potassium Chloride 10 meq PO DAILY 08/14/24 [History] Acetaminophen 325 mg [Tylenol 325 mg] 650 mg PO Q6HPRN PRN 09/11/24 [History] Carbidopa/Levodopa [Carbidopa-Levo 25-100 mg Odt] 1 tab PO TID 01/02/25 [History] Folic Acid 1 mg [Folate 1 mg] 1 mg PO DAILY 01/06/25 [History] Hydrocodone/Acetaminophen [Hydrocodone-Acetamin 5-325 mg] 1 tab PO Q6HPRN PRN MDD 4 01/06/25 [History] Metoprolol Tartrate 25 mg [Lopressor 25MG Tab] 25 mg PO BID 01/06/25 [History] Hx Tetanus, Diphtheria Vaccination/Date Given: Yes Hx Influenza Vaccination/Date Given: Yes Hx Pneumococcal Vaccination/Date Given: Yes Travel Risk - International Travel Have you traveled outside of the country in past 3 weeks: No - Emerging Infectious Disease Are you exhibiting symptoms associated with any current EIDs: No Symptoms: Fever, Rash - Review of Systems Constitutional: Weakness Eyes: No Symptoms Ears, Nose, & Throat: No Symptoms Respiratory: No Symptoms Cardiac: No Symptoms Abdominal/Gastrointestinal: No Symptoms Genitourinary Symptoms: No Symptoms Musculoskeletal: No Symptoms Skin: No Symptoms Neurological: Dizziness Psychological: No Symptoms Endocrine: No Symptoms Hematologic/Lymphatic: No Symptoms Immunological/Allergic: No Symptoms All Other Systems: Reviewed and Negative - Past Medical History Pertinent Past Medical History: Yes Neurological History: Other ENT History: No Pertinent History Cardiac History: High Cholesterol, Hypertension Respiratory History: CHF Endocrine Medical History: Diabetes Type II Musculoskeletal History: Osteoarthritis GI Medical History: Other History: Other Other Medical History: 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 SX HX: LEFT TKR >10 YEARS AGO, CAROTID ENDARTERECTOMY, CLEFT PALATE REPAIR - Past Surgical History Past Surgical History: Yes Neuro Surgical History: No Pertinent History Cardiac: No Pertinent History Respiratory: No Pertinent History Gastrointestinal: No Pertinent History Genitourinary: No Pertinent History Musculoskeletal: Amputation, Orthopedic Surgery Other Surgical History: TOTAL CLEFT PALATE REPAIR. , finger amputation,left knee joint replacement Significant Family History: no pertinent family hx - Social History Smoking Status: Never smoker Exposure to second hand smoke: No Drug Use: none - Social Determinants of Health Will the patient participate in the screening: Yes Do you worry about a steady place to live?: No In the past 12 months,have you had to go without utilities?: No Transportation Issues: No Has anyone in your support network made you feel unsafe?: No Have you or anyone in your house had to go w/o enough food: No - Nursing Vital Signs Nursing Vital Signs: Initial Vital Signs Temperature 97.2 F 04/08/25 08:52 Pulse Rate 68 04/08/25 08:52 Respiratory Rate 16 04/08/25 08:52 Blood Pressure 60/36 04/08/25 08:52 O2 Sat by Pulse Oximetry 93 L 04/08/25 08:52 Pain Scale Pain Intensity 2 - Physical Exam General Appearance: mild distress, alert, anxiety, obese Eye Exam: PERRL/EOMI, eyes nml inspection Ears, Nose, Throat Exam: normal ENT inspection, moist mucous membranes Neck Exam: normal inspection, non-tender, supple, full range of motion Respiratory Exam: normal breath sounds, respiratory distress, airway intact, No chest tenderness, No lungs clear Cardiovascular Exam: regular rate/rhythm, normal heart sounds, normal peripheral pulses Gastrointestinal/Abdomen Exam: soft, normal bowel sounds, other (Ostomy is pink in the ostomy bag has stool in it), No tenderness, No guarding Rectal Exam: not done Back Exam: other (Decubitus ulcer with dressing in place) Extremity Exam: normal inspection, normal range of motion, pelvis stable Neurologic Exam: alert, oriented x 3, cooperative, sensation nml Skin Exam: normal color, warm, dry Lymphatic Exam: No adenopathy SpO2 Interpretation: normal O2 Delivery: Room Air - Course Nursing assessment & vital signs reviewed: Yes EKG Interpreted by Me: RATE (68), Sinus Rhythm, NORMAL AXIS, NORMAL QRS, NORMAL ST-T, Other (Short TN interval. QTc is 443. No acute ischemia on today's twelve-lead EKG) Ordered Tests: Active Orders 24 hr Category Date Time Status School Nurse STAT Care 04/08/25 09:06 Active EKG-ER Only STAT Care 04/08/25 09:05 Active IV Insertion STAT Care 04/08/25 09:05 Active BLOOD CULTURE Stat Lab 04/08/25 09:22 Received CBC W DIFF Stat Lab 04/08/25 09:15 Completed CMP Stat Lab 04/08/25 09:15 Completed CULTURE,URINE Stat Lab 04/08/25 10:23 Received CULTURE,WOUND Stat Lab 04/08/25 Ordered Lactic Acid Stat Lab 04/08/25 09:20 Completed MAGNESIUM Stat Lab 04/08/25 09:15 Completed NT PRO BNPII Stat Lab 04/08/25 09:15 Completed Occult Blood-Fecal Screen (Diagnostic) [OB-FECAL SCREEN Lab 04/08/25 11:39 Received ] Stat PROCALCITONIN Stat Lab 04/08/25 09:15 Completed TROPONIN Q4H Lab 04/08/25 09:15 Completed TROPONIN Q4H Lab 04/08/25 13:15 Ordered TROPONIN Q4H Lab 04/08/25 17:15 Ordered UA W/RFX UR CULTURE Stat Lab 04/08/25 10:23 Completed Medication Summary Generic Name Dose Route Start Last Admin Trade Name Freq PRN Reason Stop Dose Admin Sodium Chloride 1,000 mls @ 250 mls/hr 04/08/25 09:15 04/08/25 10:38 Sodium Chloride 0.9% 1000 Ml IV 05/08/25 09:14 250 mls/hr .Q4H CONI Administration Levofloxacin/Dextrose 500 mg in 100 mls @ 100 mls/hr 04/08/25 11:39 04/08/25 11:45 Levofloxacin 500mg/100ml D5w IV 04/08/25 12:38 100 mls/hr STAT STA 100 mls/hr Administration Discontinued Medications Generic Name Dose Route Start Last Admin Trade Name Freq PRN Reason Stop Dose Admin Ceftriaxone Sodium 1 gm in 100 mls @ 200 mls/hr 04/08/25 10:59 04/08/25 11:42 Rocephin 1 Gm / 100 Ml Nacl IV 04/08/25 11:28 Infused STAT ONE Infusion Ceftriaxone Sodium Confirm 04/08/25 11:02 Rocephin 1 Gm / 100 Ml Nacl Administered 04/08/25 11:03 Dose 1 gm in 100 mls @ ud IV .STK-MED ONE Lab/Rad Data: Laboratory Result Diagrams 04/08/25 09:15 04/08/25 09:15 Laboratory Results 04/08/25 04/08/25 04/08/25 Range/Units 10:23 09:22 09:20 WBC (4.23-9.07) x10^3/uL RBC (4.63-6.08) x10^6/uL Hgb (13.7-17.5) g/dL Hct (40.1-51.0) % MCV (79.0-92.2) fL MCH (25.7-32.2) pg MCHC (32.3-36.5) g/dL RDW (11.6-14.4) % Plt Count (163-337) x10^3/uL MPV (9.4-12.4) fL Gran % (34.0-67.9) % Immature Gran % (Auto) (0.001-0.429) % Nucleat RBC Rel Count (0.00-0.2) % Eos # (Auto) (0.04-0.54) x10^3/uL Immature Gran # (Auto) (0.001-0.031) x10^3u/L Absolute Lymphs (auto) (1.32-3.57) x10^3/uL Absolute Monos (auto) (0.30-0.82) x10^3/uL Absolute Nucleated RBC (0.00-0.012) x10^3u/L Lymphocytes % (21.8-53.1) % Monocytes % (5.3-12.2) % Eosinophils % (0.8-7.0) % Basophils % (0.2-1.2) % Absolute Granulocytes (1.78-5.38) x10^3/uL Basophils # (0.01-0.08) x10^3/uL Sodium (135-145) mmol/L Potassium (3.5-5.1) mmol/L Chloride (98-107) mmol/L Carbon Dioxide (22-30) mmol/L Anion Gap (5-15) MEQ/L BUN (9-20) mg/dL Creatinine (0.66-1.25) mg/dL Estimated GFR ML/MIN Glucose (74-106) mg/dL Lactic Acid 1.3 (0.4-2.0) Calcium (8.4-10.2) mg/dL Magnesium (1.6-2.3) mg/dL Total Bilirubin (0.2-1.3) mg/dL AST (17-59) U/L ALT (0-50) U/L Alkaline Phosphatase (38-126) U/L Troponin I (0.000-0.033) ng/mL NT-Pro-B Natriuret Pep (<300) pg/mL Serum Total Protein (6.3-8.2) g/dL Albumin (3.5-5.0) g/dL Procalcitonin (0.030-0.080) ng/mL Urine Color Yellow (Yellow) Urine Appearance Turbid A (Clear) Urine pH 6.5 (4.6-8.0) Ur Specific [place] 1.015 (1.005-1.030) Urine Protein 100 A (Negative) Urine Glucose (UA) Negative (Negative) mg/dL Urine Ketones Trace A (Negative) Urine Blood Small A (Negative) Urine Nitrite Negative (Negative) Urine Bilirubin Negative (Negative) Urine Urobilinogen 1.0 A (0.2) mg/dL Ur Leukocyte Esterase Large A (Negative) U Hyaline Cast (Auto) 20-50 (0-2) /LPF Urine Microscopic RBC 3-5 (0-5) /HPF Urine Microscopic WBC >100 A (0-5) /HPF Ur Epithelial Cells None Seen (None Seen) /HPF Urine Bacteria Many A (None Seen) /HPF Urine Culture Reflexed YES (NO) ABO Group O Rh Factor POSITIVE Antibody Screen NEGATIVE (NEGATIVE) 04/08/25 04/08/25 04/08/25 Range/Units 09:15 09:15 09:15 WBC 10.3 H (4.23-9.07) x10^3/uL RBC 2.94 L (4.63-6.08) x10^6/uL Hgb 8.3 L (13.7-17.5) g/dL Hct 25.4 L (40.1-51.0) % MCV 86.4 (79.0-92.2) fL MCH 28.2 (25.7-32.2) pg MCHC 32.7 (32.3-36.5) g/dL RDW 15.7 H (11.6-14.4) % Plt Count 254 (163-337) x10^3/uL MPV 9.5 (9.4-12.4) fL Gran % 53.1 (34.0-67.9) % Immature Gran % (Auto) 1.1 H (0.001-0.429) % Nucleat RBC Rel Count 0.0 (0.00-0.2) % Eos # (Auto) 0.27 (0.04-0.54) x10^3/uL Immature Gran # (Auto) 0.11 H (0.001-0.031) x10^3u/L Absolute Lymphs (auto) 3.49 (1.32-3.57) x10^3/uL Absolute Monos (auto) 0.91 H (0.30-0.82) x10^3/uL Absolute Nucleated RBC 0.00 (0.00-0.012) x10^3u/L Lymphocytes % 33.9 (21.8-53.1) % Monocytes % 8.8 (5.3-12.2) % Eosinophils % 2.6 (0.8-7.0) % Basophils % 0.5 (0.2-1.2) % Absolute Granulocytes 5.48 H (1.78-5.38) x10^3/uL Basophils # 0.05 (0.01-0.08) x10^3/uL Sodium 134 L (135-145) mmol/L Potassium 4.5 (3.5-5.1) mmol/L Chloride 100 (98-107) mmol/L Carbon Dioxide 25 (22-30) mmol/L Anion Gap 13.0 (5-15) MEQ/L BUN 45 H (9-20) mg/dL Creatinine 1.21 (0.66-1.25) mg/dL Estimated GFR 61.7 ML/MIN Glucose 178 H (74-106) mg/dL Lactic Acid (0.4-2.0) Calcium 9.0 (8.4-10.2) mg/dL Magnesium 1.7 (1.6-2.3) mg/dL Total Bilirubin 0.50 (0.2-1.3) mg/dL AST 19 (17-59) U/L ALT 8 (0-50) U/L Alkaline Phosphatase 102 (38-126) U/L Troponin I < 0.012 (0.000-0.033) ng/mL NT-Pro-B Natriuret Pep 242 (<300) pg/mL Serum Total Protein 6.1 L (6.3-8.2) g/dL Albumin 3.2 L (3.5-5.0) g/dL Procalcitonin 0.103 H (0.030-0.080) ng/mL Urine Color (Yellow) Urine Appearance (Clear) Urine pH (4.6-8.0) Ur Specific [place] (1.005-1.030) Urine Protein (Negative) Urine Glucose (UA) (Negative) mg/dL Urine Ketones (Negative) Urine Blood (Negative) Urine Nitrite (Negative) Urine Bilirubin (Negative) Urine Urobilinogen (0.2) mg/dL Ur Leukocyte Esterase (Negative) U Hyaline Cast (Auto) (0-2) /LPF Urine Microscopic RBC (0-5) /HPF Urine Microscopic WBC (0-5) /HPF Ur Epithelial Cells (None Seen) /HPF Urine Bacteria (None Seen) /HPF Urine Culture Reflexed (NO) ABO Group Rh Factor Antibody Screen (NEGATIVE) - Progress Progress: improved Progress Note: 04/08/25 09:25 My medical decision making and the assignment of moderate to high complexity of this patient's medical issue today is based on review of the patient's past medical history, review the patient's medication list, reviewed patient drug allergy list, history present illness and physical findings on examination. The workup in this patient includes placement of an intravenous line, infusion of normal saline solution, CBC, CMP, magnesium level, troponin level, urinalysis, procalcitonin level, blood culture, lactic acid level, type and screen, twelve- lead EKG. Differential diagnosis includes but is not limited to sepsis, anemia, dehydration, electrolyte abnormalities, arrhythmia, myocardial infarction 04/08/25 11:01 I interpreted the patient's laboratory data results and compared them to prior labs. Patient has a hemoglobin 8.3 which is in the range where he typically runs chronically. He does have a significant urinary tract infection. Although his renal function (GFR) is over 60 today it has typically runs in the high 80s. He does have ketones in his urine. This is suggestive of dehydration 04/08/25 11:[address] Riojas, the telehospitalist on at this time. This patient has what appears to be urosepsis with hypotension. Blood pressure did respond to fluid boluses. I reviewed the patient history, presenting complaint and workup results with the generalized. We both reviewed the echocardiogram/nuclear medicine results and his cardiac ejection fraction is approximately 55%. He has grown Pseudomonas out of his sacral decubitus ulcer wound in the past. We will add Levaquin to today's Rocephin dose to make sure Pseudomonas is treated. 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 - Discussion of managment Care discussed with:: hospitalist Reviewed:: Test results, Need for additional workup - Diagnostic Testing Diagnostic test were ordered, analyzed, and reviewed by me: Yes - Risk of complications The pt has a high risk of morbidity or mortality based on: Decision regarding hospitilization or escalation of hosp level of care - Departure Departure Disposition: Observation Clinical Impression: Hypotension, Urinary tract infection, Sepsis, Chronic anemia Condition: Fair Critical Care Time: Yes Critical Care Time(excluding separately billable procedures): Critical 30-74 mins (65) Referrals: LENA DUGGAN MD [Primary Care Provider, [facility]] - Follow up/PCP as directed
[2025-04-08 09:39] LABS: BASOPHIL % 0.5 % (0.2-1.2); Basophil (Absolute #) 0.05 x10^3/uL (0.01-0.08); Eosinophil (Absolute #) 0.27 x10^3/uL (0.04-0.54); Hematocrit 25.4 % (40.1-51.0); Hemoglobin 8.3 g/dL (13.7-17.5); IMMATURE GRAN # 0.11 x10^3u/L (0.001-0.031); IMMATURE GRAN % 1.1 % (0.001-0.429); Lymphocyte (Absolute #) 3.49 x10^3/uL (1.32-3.57); Mean Corpuscular Hemoglobin 28.2 pg (25.7-32.2); Mean Corpuscular Hgb Concent. 32.7 g/dL (32.3-36.5); Monocyte (Absolute #) 0.91 x10^3/uL (0.30-0.82); NUCLEATED RBC # 0.00 x10^3u/L (0.00-0.012); NUCLEATED RBC % 0.0 % (0.00-0.2); Platelet Count 254 x10^3/uL (163-337); Red Blood Count 2.94 x10^6/uL (4.63-6.08); White Blood Count 10.3 x10^3/uL (4.23-9.07)
[2025-04-08 10:07] LABS: Calcium 9.0 mg/dL (8.4-10.2); Carbon Dioxide 25.0 mmol/L (22-30); Creatinine 1 1.21 mg/dL (0.66-1.25); EST GLOMERULAR FILTRATION RATE 61.7 ML/MIN; Glucose 178.0 mg/dL (74-106); NT PRO BNPII 242.0 pg/mL (<300); Potassium 4.5 mmol/L (3.5-5.1); SGOT/AST 19.0 U/L (17-59); SGPT/ALT 8.0 U/L (0-50); Total Protein 6.1 g/dL (6.3-8.2)
[2025-04-08 10:10] LABS: ABO TYPING O; RH TYPING POSITIVE
[2025-04-08 10:38] LABS: Glucose, Urine Negative (Negative); Protein,Urine Dip 100 (Negative); WBC >100 /HPF (0-5)
[2025-04-08] MEDS ORDERED: ROCEPHIN 1 GM / 100 ML NaCl 1 GM/100 ML IVPB IV ONE (11:02)
[2025-04-08] MEDS: ROCEPHIN 1 GM / 100 ML NaCl 1 GM/100 ML IVPB IV ONE (11:05)
[2025-04-08] MEDS ORDERED: Levofloxacin 500MG/100ML D5W 500 MG/100 ML BAG IV ONE (11:44)
[2025-04-08] MEDS: Levofloxacin 500MG/100ML D5W 500 MG/100 ML BAG IV STA (11:45)
[2025-04-08 11:49] LABS: IFOB TEST RESULTS NEGATIVE (NEGATIVE)
[2025-04-08] MEDS ORDERED: NOREPINEPHRINE 8 MG/250 ML-D5W 8 MG/250 ML PLAST..BAG IV PRN (13:10)
[2025-04-08] MEDS ORDERED: HUMULIN R SQ PRN (13:10)
--- NOTE | 2025-04-08 13:22 | PCM.HP ---
<JARRET COWART - Last Filed: 04/08/25 13:16> History of Present Illness - Chief Complaint Chief Complaint: Urosepsis Date: 04/08/25 History of Present Illness: is a 79 year old male with a pmhx of Parkinsons disease, hypertension, type 2 diabetes mellitus, coronary artery disease, a chronic non- healing sacral decubitus ulcer, and a remote colostomy, and urinary retention with chronic wadsworth catheter who presented to the ED 04/08/25 with acute onset hypotension, dizziness, and generalized weakness beginning earlier today. 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 The nurse noted he was hypotensive when she checked his vitals. He reports that he generally feels this way when he needs antibiotics for his chronic decubitus sacral wound. He completed antibiotics most recently about three weeks ago at [facility]. He was released from [facility] shortly after. Chart review confirms a baseline of chronic lower extremity weakness, frequent falls, and bilateral leg pain, most recently documented during an December 2024 admission. At that time, the patient had a urinary tract infection and a chronic sacral decubitus ulcer. Prior wound cultures from 01/07/25 showed Pseudomonas aeruginosa and Morganella morganii (both pansensitive), and urine culture from 01/02/25 also grew Pseudomonas, treated with levofloxacin. Patient report that he receives weekly wound care at [facility] and recently his wound vac came off and was to be replaced today. Denies fever,cough, sob, cp, abdominal pain, [place], N/V/D. On ED arrival, the patient was hypotensive with a BP of 66/39. He received a 1- liter IV fluid bolus, after which BP improved to 111/90. Although vasopressor support was initially considered, the patient ultimately responded to fluids alone and did not require Levophed. EKG revealed sinus rhythm at a rate of 68, normal axis, normal QRS and ST-T segments, short WA interval, and QTc of 443 msno signs of acute ischemia. Lab results showed mild leukocytosis (WBC 10.3), normocytic anemia (Hgb 8.3, consistent with baseline), and procalcitonin (0.103). Urinalysis was positive for large leukocyte esterase; stool occult blo od negative. The patient received ceftriaxone, levofloxacin, and IV fluids in the ED and was admitted for management of hypotension and suspected urinary tract infection. - Review of Systems Constitutional: Fatigue, Weakness Eyes: No Symptoms Ears, Nose, & Throat: No Symptoms Respiratory: Cough Cardiac: No Symptoms Abdominal/Gastrointestinal: No Symptoms, Other (colostomy) Genitourinary Symptoms: Urinary Retention, Other (wadsworth cath) Musculoskeletal: Joint Pain (knee bilat) Skin: No Symptoms Neurological: No Symptoms Psychological: No Symptoms Endocrine: No Symptoms Hematologic/Lymphatic: No Symptoms Immunological/Allergic: No Symptoms Medications & Allergies Home Medications: Home Medication List lisinopriL [Zestril] 40 mg PO DAILY 12/11/15 [History Confirmed 04/08/25] Atorvastatin Calcium [Lipitor] 80 mg PO QHS 06/09/19 [History Confirmed 04/08/25] Ezetimibe 10 mg PO QHS 06/09/19 [History Confirmed 04/08/25] Metformin HCl 500 mg [Glucophage 500 MG] 500 mg PO DAILY 06/09/19 [History Confirmed 04/08/25] Furosemide 40 mg [Lasix 40 MG] 80 mg PO BID 08/14/24 [History Confirmed 04/08/25] Potassium Chloride 10 meq PO DAILY 08/14/24 [History Confirmed 04/08/25] Acetaminophen 325 mg [Tylenol 325 mg] 650 mg PO Q6HPRN PRN 09/11/24 [History Confirmed 04/08/25] Carbidopa/Levodopa [Carbidopa-Levo 25-100 mg Odt] 1 tab PO TID 01/02/25 [History Confirmed 04/08/25] Folic Acid 1 mg [Folate 1 mg] 1 mg PO DAILY 01/06/25 [History Confirmed 04/08/25] Hydrocodone/Acetaminophen [Hydrocodone-Acetamin 5-325 mg] 1 tab PO Q6HPRN PRN MDD 4 01/06/25 [History Confirmed 04/08/25] Metoprolol Tartrate 25 mg [Lopressor 25MG Tab] 25 mg PO BID 01/06/25 [History Confirmed 04/08/25] Ferrous Sulfate 325 mg PO DAILY 04/08/25 [History Confirmed 04/08/25] Allergies/Adverse Reactions: Allergies Allergy/AdvReac Type Severity Reaction Status Date / Time No Known Drug Allergies Allergy Verified 04/08/25 13:11 - Past Medical History Past Medical History: Yes Neurological History: Other ENT History: No Pertinent History Cardiac History: High Cholesterol, Hypertension Respiratory History: CHF Endocrine Medical History: Diabetes Type II Musculoskelatal History: Osteoarthritis GI Medical History: Other History: Other Pyscho-Social History: No Pertinent History Male Reproductive Disorders: No Pertinent History Comment: 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 SX HX: LEFT TKR >10 YEARS AGO, CAROTID ENDARTERECTOMY, CLEFT PALATE REPAIR - Past Surgical History Past Surgical History: Yes Neuro Surgical History: No Pertinent History Cardiac History: No Pertinent History Respiratory Surgery: No Pertinent History GI Surgical History: No Pertinent History Genitourinary Surgical Hx: No Pertinent History Musculskeletal Surgical Hx: Amputation, Orthopedic Surgery Other Surgical History: TOTAL CLEFT PALATE REPAIR. , finger amputation,left knee joint replacement Significant Family History: no pertinent family hx - Social History Smoking Status: Never smoker Exposure to second hand smoke: No Alcohol: None Drug Use: none - Social Determinants of Health Will the patient participate in the screening: Yes Do you worry about a steady place to live?: No Do you have any problems with any of the following?: No known problems In the past 12 months,have you had to go without utilities?: No Have you or anyone in your house had to go without enough: No Transportation Issues: No Has anyone in your support network made you feel unsafe?: No Does the patient want assistance with any of the above?: No - Physical Exam Vital Signs: Vital Signs - 24 hr Temp Pulse Resp BP BP Pulse Ox 04/08/25 12:20 83 17 108/57 04/08/25 12:17 83 15 115/57 04/08/25 12:15 82 21 96/55 04/08/25 12:12 81 13 121/92 04/08/25 12:03 76 13 83/38 04/08/25 12:01 77 16 75/32 04/08/25 11:51 74 17 115/76 04/08/25 11:41 75 17 95/51 04/08/25 11:37 73 16 184/157 94 L 04/08/25 11:35 79 18 96 04/08/25 11:31 81 15 185/159 93 L 04/08/25 11:21 80 18 103/89 93 L 04/08/25 11:11 75 14 80/38 94 L 04/08/25 11:01 77 14 69/52 93 L 04/08/25 10:50 74 18 96/51 94 L 04/08/25 10:41 76 19 96/52 94 L 04/08/25 10:31 77 21 83/46 95 04/08/25 10:20 73 14 77/52 96 04/08/25 10:11 76 19 79/44 04/08/25 10:01 74 19 82/33 04/08/25 09:50 74 20 79/35 04/08/25 09:48 75 13 74/33 04/08/25 09:40 71 18 62/36 95 04/08/25 09:30 71 7 L 66/39 92 L 04/08/25 08:52 97.2 F 68 16 60/36 93 L General Appearance: no apparent distress Neurologic Exam: alert, oriented x 3, cooperative Eye Exam: PERRL/EOMI Ears, Nose, Throat Exam: normal ENT inspection Neck Exam: normal inspection Respiratory Exam: normal breath sounds, lungs clear Cardiovascular Exam: regular rate/rhythm, normal heart sounds Gastrointestinal/Abdomen Exam: soft, normal bowel sounds, other (colostomy) Male Genitalia Exam: other (FC-chronic due to urinary retention changed on admission) Back Exam: normal inspection Extremity Exam: normal inspection Results - Labs Lab/Micro Results: Lab Results-Last 24 Hours 04/08/25 04/08/25 04/08/25 Range/Units 09:15 09:15 09:15 WBC 10.3 H (4.23-9.07) x10^3/uL RBC 2.94 L (4.63-6.08) x10^6/uL Hgb 8.3 L (13.7-17.5) g/dL Hct 25.4 L (40.1-51.0) % MCV 86.4 (79.0-92.2) fL MCH 28.2 (25.7-32.2) pg MCHC 32.7 (32.3-36.5) g/dL RDW 15.7 H (11.6-14.4) % Plt Count 254 (163-337) x10^3/uL MPV 9.5 (9.4-12.4) fL Gran % 53.1 (34.0-67.9) % Immature Gran % (Auto) 1.1 H (0.001-0.429) % Nucleat RBC Rel Count 0.0 (0.00-0.2) % Eos # (Auto) 0.27 (0.04-0.54) x10^3/uL Immature Gran # (Auto) 0.11 H (0.001-0.031) x10^3u/L Absolute Lymphs (auto) 3.49 (1.32-3.57) x10^3/uL Absolute Monos (auto) 0.91 H (0.30-0.82) x10^3/uL Absolute Nucleated RBC 0.00 (0.00-0.012) x10^3u/L Lymphocytes % 33.9 (21.8-53.1) % Monocytes % 8.8 (5.3-12.2) % Eosinophils % 2.6 (0.8-7.0) % Basophils % 0.5 (0.2-1.2) % Absolute Granulocytes 5.48 H (1.78-5.38) x10^3/uL Basophils # 0.05 (0.01-0.08) x10^3/uL Sodium 134 L (135-145) mmol/L Potassium 4.5 (3.5-5.1) mmol/L Chloride 100 (98-107) mmol/L Carbon Dioxide 25 (22-30) mmol/L Anion Gap 13.0 (5-15) MEQ/L BUN 45 H (9-20) mg/dL Creatinine 1.21 (0.66-1.25) mg/dL Estimated GFR 61.7 ML/MIN Glucose 178 H (74-106) mg/dL Lactic Acid (0.4-2.0) Calcium 9.0 (8.4-10.2) mg/dL Magnesium 1.7 (1.6-2.3) mg/dL Total Bilirubin 0.50 (0.2-1.3) mg/dL AST 19 (17-59) U/L ALT 8 (0-50) U/L Alkaline Phosphatase 102 (38-126) U/L Troponin I < 0.012 (0.000-0.033) ng/mL NT-Pro-B Natriuret Pep 242 (<300) pg/mL Serum Total Protein 6.1 L (6.3-8.2) g/dL Albumin 3.2 L (3.5-5.0) g/dL Procalcitonin 0.103 H (0.030-0.080) ng/mL Urine Color (Yellow) Urine Appearance (Clear) Urine pH (4.6-8.0) Ur Specific [place] (1.005-1.030) Urine Protein (Negative) Urine Glucose (UA) (Negative) mg/dL Urine Ketones (Negative) Urine Blood (Negative) Urine Nitrite (Negative) Urine Bilirubin (Negative) Urine Urobilinogen (0.2) mg/dL Ur Leukocyte Esterase (Negative) U Hyaline Cast (Auto) (0-2) /LPF Urine Microscopic RBC (0-5) /HPF Urine Microscopic WBC (0-5) /HPF Ur Epithelial Cells (None Seen) /HPF Urine Bacteria (None Seen) /HPF Urine Culture Reflexed (NO) Stl Occult Blood (IFOB) (NEGATIVE) ABO Group Rh Factor Antibody Screen (NEGATIVE) 04/08/25 04/08/25 04/08/25 Range/Units 09:20 09:22 10:23 WBC (4.23-9.07) x10^3/uL RBC (4.63-6.08) x10^6/uL Hgb (13.7-17.5) g/dL Hct (40.1-51.0) % MCV (79.0-92.2) fL MCH (25.7-32.2) pg MCHC (32.3-36.5) g/dL RDW (11.6-14.4) % Plt Count (163-337) x10^3/uL MPV (9.4-12.4) fL Gran % (34.0-67.9) % Immature Gran % (Auto) (0.001-0.429) % Nucleat RBC Rel Count (0.00-0.2) % Eos # (Auto) (0.04-0.54) x10^3/uL Immature Gran # (Auto) (0.001-0.031) x10^3u/L Absolute Lymphs (auto) (1.32-3.57) x10^3/uL Absolute Monos (auto) (0.30-0.82) x10^3/uL Absolute Nucleated RBC (0.00-0.012) x10^3u/L Lymphocytes % (21.8-53.1) % Monocytes % (5.3-12.2) % Eosinophils % (0.8-7.0) % Basophils % (0.2-1.2) % Absolute Granulocytes (1.78-5.38) x10^3/uL Basophils # (0.01-0.08) x10^3/uL Sodium (135-145) mmol/L Potassium (3.5-5.1) mmol/L Chloride (98-107) mmol/L Carbon Dioxide (22-30) mmol/L Anion Gap (5-15) MEQ/L BUN (9-20) mg/dL Creatinine (0.66-1.25) mg/dL Estimated GFR ML/MIN Glucose (74-106) mg/dL Lactic Acid 1.3 (0.4-2.0) Calcium (8.4-10.2) mg/dL Magnesium (1.6-2.3) mg/dL Total Bilirubin (0.2-1.3) mg/dL AST (17-59) U/L ALT (0-50) U/L Alkaline Phosphatase (38-126) U/L Troponin I (0.000-0.033) ng/mL NT-Pro-B Natriuret Pep (<300) pg/mL Serum Total Protein (6.3-8.2) g/dL Albumin (3.5-5.0) g/dL Procalcitonin (0.030-0.080) ng/mL Urine Color Yellow (Yellow) Urine Appearance Turbid A (Clear) Urine pH 6.5 (4.6-8.0) Ur Specific [place] 1.015 (1.005-1.030) Urine Protein 100 A (Negative) Urine Glucose (UA) Negative (Negative) mg/dL Urine Ketones Trace A (Negative) Urine Blood Small A (Negative) Urine Nitrite Negative (Negative) Urine Bilirubin Negative (Negative) Urine Urobilinogen 1.0 A (0.2) mg/dL Ur Leukocyte Esterase Large A (Negative) U Hyaline Cast (Auto) 20-50 (0-2) /LPF Urine Microscopic RBC 3-5 (0-5) /HPF Urine Microscopic WBC >100 A (0-5) /HPF Ur Epithelial Cells None Seen (None Seen) /HPF Urine Bacteria Many A (None Seen) /HPF Urine Culture Reflexed YES (NO) Stl Occult Blood (IFOB) (NEGATIVE) ABO Group O Rh Factor POSITIVE Antibody Screen NEGATIVE (NEGATIVE) 04/08/25 Range/Units 11:39 WBC (4.23-9.07) x10^3/uL RBC (4.63-6.08) x10^6/uL Hgb (13.7-17.5) g/dL Hct (40.1-51.0) % MCV (79.0-92.2) fL MCH (25.7-32.2) pg MCHC (32.3-36.5) g/dL RDW (11.6-14.4) % Plt Count (163-337) x10^3/uL MPV (9.4-12.4) fL Gran % (34.0-67.9) % Immature Gran % (Auto) (0.001-0.429) % Nucleat RBC Rel Count (0.00-0.2) % Eos # (Auto) (0.04-0.54) x10^3/uL Immature Gran # (Auto) (0.001-0.031) x10^3u/L Absolute Lymphs (auto) (1.32-3.57) x10^3/uL Absolute Monos (auto) (0.30-0.82) x10^3/uL Absolute Nucleated RBC (0.00-0.012) x10^3u/L Lymphocytes % (21.8-53.1) % Monocytes % (5.3-12.2) % Eosinophils % (0.8-7.0) % Basophils % (0.2-1.2) % Absolute Granulocytes (1.78-5.38) x10^3/uL Basophils # (0.01-0.08) x10^3/uL Sodium (135-145) mmol/L Potassium (3.5-5.1) mmol/L Chloride (98-107) mmol/L Carbon Dioxide (22-30) mmol/L Anion Gap (5-15) MEQ/L BUN (9-20) mg/dL Creatinine (0.66-1.25) mg/dL Estimated GFR ML/MIN Glucose (74-106) mg/dL Lactic Acid (0.4-2.0) Calcium (8.4-10.2) mg/dL Magnesium (1.6-2.3) mg/dL Total Bilirubin (0.2-1.3) mg/dL AST (17-59) U/L ALT (0-50) U/L Alkaline Phosphatase (38-126) U/L Troponin I (0.000-0.033) ng/mL NT-Pro-B Natriuret Pep (<300) pg/mL Serum Total Protein (6.3-8.2) g/dL Albumin (3.5-5.0) g/dL Procalcitonin (0.030-0.080) ng/mL Urine Color (Yellow) Urine Appearance (Clear) Urine pH (4.6-8.0) Ur Specific [place] (1.005-1.030) Urine Protein (Negative) Urine Glucose (UA) (Negative) mg/dL Urine Ketones (Negative) Urine Blood (Negative) Urine Nitrite (Negative) Urine Bilirubin (Negative) Urine Urobilinogen (0.2) mg/dL Ur Leukocyte Esterase (Negative) U Hyaline Cast (Auto) (0-2) /LPF Urine Microscopic RBC (0-5) /HPF Urine Microscopic WBC (0-5) /HPF Ur Epithelial Cells (None Seen) /HPF Urine Bacteria (None Seen) /HPF Urine Culture Reflexed (NO) Stl Occult Blood (IFOB) NEGATIVE (NEGATIVE) ABO Group Rh Factor Antibody Screen (NEGATIVE) Assessment/Plan (1) Sepsis Current Visit: Yes Status: Acute Assessment & Plan: -Meets Sepsis-3 criteria: suspected infection + organ dysfunction (hypotension requiring fluids). -BP improved with 1L fluid bolus IVF; vasopressors not required consider if map < 65 now at 111/90 -Broad-spectrum antibiotics initiated (Levaquin). - WBC, CMP, lactate, renal function reviewed -Most likely multifactorial with UTI/chronic wound - Coccygeal wound cultures from 01/07/25 grew Pseudomonas aeruginosa and Morganella morganii, both pansensitive - A urine culture from 01/02/25 showed Pseudomonas aeruginosa, treated with levofloxacin -Will start levaquin and follow blood and urine cultures -CXR -Tele (2) Urinary tract infection Current Visit: Yes Status: Acute Assessment & Plan: -See sepsis above Code(s): N39.0 - URINARY TRACT INFECTION, SITE NOT SPECIFIED (3) Hypotension Current Visit: Yes Status: Acute Assessment & Plan: -Likely related to early sepsis -Improved with 1L IV fluids; continue fluid support as needed -Hold home antihypertensives until stable - patient states he did not take BP meds today -Monitor blood pressure and MAP; daily CMP/I&O monitoring Code(s): I95.9 - HYPOTENSION, UNSPECIFIED (4) CAD (coronary artery disease) Current Visit: Yes Status: Acute Assessment & Plan: -1 stent placed -continue home meds -EKG without ischemic changes; no chest pain Code(s): I25.10 - ATHSCL HEART DISEASE OF [place] CORONARY ARTERY W/O ANG PCTRS (5) 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 Current Visit: Yes Status: Acute Assessment & Plan: -Hgb 8.3, stable and consistent with prior lab review -Monitor CBC -No transfusion indicated at this time Code(s): D50.0 - IRON DEFICIENCY ANEMIA SECONDARY TO BLOOD LOSS (CHRONIC) (6) Colostomy care Current Visit: Yes Status: Acute Assessment & Plan: -No acute complications noted -Monitor stoma and skin integrity -Routine ostomy care Code(s): Z43.3 - ENCOUNTER FOR ATTENTION TO COLOSTOMY (7) Parkinson disease Current Visit: Yes Status: Acute Assessment & Plan: -continue home regimen Code(s): G20.A1 - PARKINSON'S DIS W/O DYSKINESIA, W/O MENTION OF FLUCTUATIONS (8) Generalized weakness Current Visit: No Status: Acute Assessment & Plan: -PT/OT -Most likely secondary to infection -may need rehab on discharge -prior level of functioning - ambulates with walker - [facility] nurse for 12 hours daily Code(s): R53.1 - WEAKNESS (9) Decubitus ulcer Current Visit: No Status: Chronic Qualifiers: Pressure injury location: sacral region Pressure injury stage: unstageable Qualified Code(s): L89.150 - Pressure ulcer of sacral region, unstageable Assessment & Plan: -Stable chronic wound; prior cultures positive for Pseudomonas and Morganella - cultures taken/pictures in chart -OP wound care weekly at the wound center -Wound care consult to replace wound vac- pt brought wound vac/supplies with hime -Monitor for signs of local or systemic infection Code(s): L89.90 - PRESSURE ULCER OF UNSPECIFIED SITE, UNSPECIFIED STAGE (10) Parkinson disease Current Visit: No Status: Chronic Assessment & Plan: -Continue home meds Code(s): G20.A1 - PARKINSON'S DIS W/O DYSKINESIA, W/O MENTION OF FLUCTUATIONS (11) Type II diabetes mellitus Current Visit: No Status: Chronic Qualifiers: Diabetes mellitus 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 rehab on dc Code status: SCO <BEREKET FAJARDO - Last Filed: 04/09/25 00:25> History of Present Illness - Chief Complaint History of Present Illness: is a 79 year old male. - Physical Exam Vital Signs: Vital Signs - 24 hr Temp Pulse Resp BP BP Pulse Ox 04/08/25 23:30 74 16 122/57 95 04/08/25 23:00 72 17 111/55 95 04/08/25 22:30 79 18 133/63 95 04/08/25 22:00 80 18 124/63 94 L 04/08/25 21:30 78 17 109/53 94 L 04/08/25 21:00 78 17 140/67 95 04/08/25 20:30 78 17 140/68 95 04/08/25 20:00 99.3 F 70 19 140/64 94 L 04/08/25 19:30 83 18 136/61 04/08/25 19:01 70 17 141/63 94 L 04/08/25 18:31 66 17 81/40 96 04/08/25 18:23 70 15 93/66 96 04/08/25 18:00 71 20 95/67 95 04/08/25 17:31 15 93/47 95 04/08/25 17:15 18 91/44 04/08/25 17:11 71 17 87/37 04/08/25 17:01 75 16 89/44 04/08/25 16:31 99.0 F 23 95/33 04/08/25 16:30 88 04/08/25 16:00 88 14 105/52 04/08/25 15:34 75 20 79/43 04/08/25 15:31 74 19 66/43 04/08/25 15:12 76 17 136/114 04/08/25 14:26 77 15 101/70 97 04/08/25 13:38 76 16 97 04/08/25 13:05 97 H 16 111/90 96 04/08/25 13:00 97.2 F 87 16 111/90 96 04/08/25 12:30 108/51 04/08/25 12:20 83 17 108/57 04/08/25 12:17 83 15 115/57 04/08/25 12:15 82 21 96/55 04/08/25 12:12 81 13 121/92 04/08/25 12:03 76 13 83/38 04/08/25 12:01 77 16 75/32 04/08/25 11:51 74 17 115/76 04/08/25 11:41 75 17 95/51 04/08/25 11:37 73 16 184/157 94 L 04/08/25 11:35 79 18 96 04/08/25 11:31 81 15 185/159 93 L 04/08/25 11:21 80 18 103/89 93 L 04/08/25 11:11 75 14 80/38 94 L 04/08/25 11:01 77 14 69/52 93 L 04/08/25 10:50 74 18 96/51 94 L 04/08/25 10:41 76 19 96/52 94 L 04/08/25 10:31 77 21 83/46 95 04/08/25 10:20 73 14 77/52 96 04/08/25 10:11 76 19 79/44 04/08/25 10:01 74 19 82/33 04/08/25 09:50 74 20 79/35 04/08/25 09:48 75 13 74/33 04/08/25 09:40 71 18 62/36 95 04/08/25 09:30 71 7 L 66/39 92 L 04/08/25 08:52 97.2 F 68 16 60/36 93 L Wound Assessment: Skin/Wound Assessment Wound/Incision Assessment Start: 04/08/25 14:07 Text: Status: Active Freq: Q6H Protocol: Document 04/08/25 20:00 KD (Rec: 04/08/25 23:38 KD [id number]) Wound/Incision Assessment Sacrum Wound Assessment Shift Assessment Wound Type Pressure Ulcer Wound Stage Stage IV Dressing Status Dry & Intact Drainage Amount None Secondary Dressing Hydrocolloid Comment JOAN, dressed by previous shift , CDI Wound Photo Photo Taken No Results - Labs Lab/Micro Results: Lab Results-Last 24 Hours 04/08/25 04/08/25 04/08/25 Range/Units 09:05 09:15 09:15 WBC 10.3 H (4.23-9.07) x10^3/uL RBC 2.94 L (4.63-6.08) x10^6/uL Hgb 8.3 L (13.7-17.5) g/dL Hct 25.4 L (40.1-51.0) % MCV 86.4 (79.0-92.2) fL MCH 28.2 (25.7-32.2) pg MCHC 32.7 (32.3-36.5) g/dL RDW 15.7 H (11.6-14.4) % Plt Count 254 (163-337) x10^3/uL MPV 9.5 (9.4-12.4) fL Gran % 53.1 (34.0-67.9) % Immature Gran % (Auto) 1.1 H (0.001-0.429) % Nucleat RBC Rel Count 0.0 (0.00-0.2) % Eos # (Auto) 0.27 (0.04-0.54) x10^3/uL Immature Gran # (Auto) 0.11 H (0.001-0.031) x10^3u/L Absolute Lymphs (auto) 3.49 (1.32-3.57) x10^3/uL Absolute Monos (auto) 0.91 H (0.30-0.82) x10^3/uL Absolute Nucleated RBC 0.00 (0.00-0.012) x10^3u/L Lymphocytes % 33.9 (21.8-53.1) % Monocytes % 8.8 (5.3-12.2) % Eosinophils % 2.6 (0.8-7.0) % Basophils % 0.5 (0.2-1.2) % Absolute Granulocytes 5.48 H (1.78-5.38) x10^3/uL Basophils # 0.05 (0.01-0.08) x10^3/uL Sodium 134 L (135-145) mmol/L Potassium 4.5 (3.5-5.1) mmol/L Chloride 100 (98-107) mmol/L Carbon Dioxide 25 (22-30) mmol/L Anion Gap 13.0 (5-15) MEQ/L BUN 45 H (9-20) mg/dL Creatinine 1.21 (0.66-1.25) mg/dL Estimated GFR 61.7 ML/MIN Glucose 178 H (74-106) mg/dL POC Glucometer (74 to 106) mg/dL Hemoglobin A1c 5.77 (4.5-6.0) % Lactic Acid (0.4-2.0) Calcium 9.0 (8.4-10.2) mg/dL Magnesium 1.7 (1.6-2.3) mg/dL Total Bilirubin 0.50 (0.2-1.3) mg/dL AST 19 (17-59) U/L ALT 8 (0-50) U/L Alkaline Phosphatase 102 (38-126) U/L Troponin I (0.000-0.033) ng/mL NT-Pro-B Natriuret Pep 242 (<300) pg/mL Serum Total Protein 6.1 L (6.3-8.2) g/dL Albumin 3.2 L (3.5-5.0) g/dL Procalcitonin 0.103 H (0.030-0.080) ng/mL Urine Color (Yellow) Urine Appearance (Clear) Urine pH (4.6-8.0) Ur Specific [place] (1.005-1.030) Urine Protein (Negative) Urine Glucose (UA) (Negative) mg/dL Urine Ketones (Negative) Urine Blood (Negative) Urine Nitrite (Negative) Urine Bilirubin (Negative) Urine Urobilinogen (0.2) mg/dL Ur Leukocyte Esterase (Negative) U Hyaline Cast (Auto) (0-2) /LPF Urine Microscopic RBC (0-5) /HPF Urine Microscopic WBC (0-5) /HPF Ur Epithelial Cells (None Seen) /HPF Urine Bacteria (None Seen) /HPF Urine Culture Reflexed (NO) Stl Occult Blood (IFOB) (NEGATIVE) ABO Group Rh Factor Antibody Screen (NEGATIVE) 04/08/25 04/08/25 04/08/25 Range/Units 09:15 09:20 09:22 WBC (4.23-9.07) x10^3/uL RBC (4.63-6.08) x10^6/uL Hgb (13.7-17.5) g/dL Hct (40.1-51.0) % MCV (79.0-92.2) fL MCH (25.7-32.2) pg MCHC (32.3-36.5) g/dL RDW (11.6-14.4) % Plt Count (163-337) x10^3/uL MPV (9.4-12.4) fL Gran % (34.0-67.9) % Immature Gran % (Auto) (0.001-0.429) % Nucleat RBC Rel Count (0.00-0.2) % Eos # (Auto) (0.04-0.54) x10^3/uL Immature Gran # (Auto) (0.001-0.031) x10^3u/L Absolute Lymphs (auto) (1.32-3.57) x10^3/uL Absolute Monos (auto) (0.30-0.82) x10^3/uL Absolute Nucleated RBC (0.00-0.012) x10^3u/L Lymphocytes % (21.8-53.1) % Monocytes % (5.3-12.2) % Eosinophils % (0.8-7.0) % Basophils % (0.2-1.2) % Absolute Granulocytes (1.78-5.38) x10^3/uL Basophils # (0.01-0.08) x10^3/uL Sodium (135-145) mmol/L Potassium (3.5-5.1) mmol/L Chloride (98-107) mmol/L Carbon Dioxide (22-30) mmol/L Anion Gap (5-15) MEQ/L BUN (9-20) mg/dL Creatinine (0.66-1.25) mg/dL Estimated GFR ML/MIN Glucose (74-106) mg/dL POC Glucometer (74 to 106) mg/dL Hemoglobin A1c (4.5-6.0) % Lactic Acid 1.3 (0.4-2.0) Calcium (8.4-10.2) mg/dL Magnesium (1.6-2.3) mg/dL Total Bilirubin (0.2-1.3) mg/dL AST (17-59) U/L ALT (0-50) U/L Alkaline Phosphatase (38-126) U/L Troponin I < 0.012 (0.000-0.033) ng/mL NT-Pro-B Natriuret Pep (<300) pg/mL Serum Total Protein (6.3-8.2) g/dL Albumin (3.5-5.0) g/dL Procalcitonin (0.030-0.080) ng/mL Urine Color (Yellow) Urine Appearance (Clear) Urine pH (4.6-8.0) Ur Specific [place] (1.005-1.030) Urine Protein (Negative) Urine Glucose (UA) (Negative) mg/dL Urine Ketones (Negative) Urine Blood (Negative) Urine Nitrite (Negative) Urine Bilirubin (Negative) Urine Urobilinogen (0.2) mg/dL Ur Leukocyte Esterase (Negative) U Hyaline Cast (Auto) (0-2) /LPF Urine Microscopic RBC (0-5) /HPF Urine Microscopic WBC (0-5) /HPF Ur Epithelial Cells (None Seen) /HPF Urine Bacteria (None Seen) /HPF Urine Culture Reflexed (NO) Stl Occult Blood (IFOB) (NEGATIVE) ABO Group O Rh Factor POSITIVE Antibody Screen NEGATIVE (NEGATIVE) 04/08/25 04/08/25 04/08/25 Range/Units 10:23 11:39 14:08 WBC (4.23-9.07) x10^3/uL RBC (4.63-6.08) x10^6/uL Hgb (13.7-17.5) g/dL Hct (40.1-51.0) % MCV (79.0-92.2) fL MCH (25.7-32.2) pg MCHC (32.3-36.5) g/dL RDW (11.6-14.4) % Plt Count (163-337) x10^3/uL MPV (9.4-12.4) fL Gran % (34.0-67.9) % Immature Gran % (Auto) (0.001-0.429) % Nucleat RBC Rel Count (0.00-0.2) % Eos # (Auto) (0.04-0.54) x10^3/uL Immature Gran # (Auto) (0.001-0.031) x10^3u/L Absolute Lymphs (auto) (1.32-3.57) x10^3/uL Absolute Monos (auto) (0.30-0.82) x10^3/uL Absolute Nucleated RBC (0.00-0.012) x10^3u/L Lymphocytes % (21.8-53.1) % Monocytes % (5.3-12.2) % Eosinophils % (0.8-7.0) % Basophils % (0.2-1.2) % Absolute Granulocytes (1.78-5.38) x10^3/uL Basophils # (0.01-0.08) x10^3/uL Sodium (135-145) mmol/L Potassium (3.5-5.1) mmol/L Chloride (98-107) mmol/L Carbon Dioxide (22-30) mmol/L Anion Gap (5-15) MEQ/L BUN (9-20) mg/dL Creatinine (0.66-1.25) mg/dL Estimated GFR ML/MIN Glucose (74-106) mg/dL POC Glucometer (74 to 106) mg/dL Hemoglobin A1c (4.5-6.0) % Lactic Acid (0.4-2.0) Calcium (8.4-10.2) mg/dL Magnesium (1.6-2.3) mg/dL Total Bilirubin (0.2-1.3) mg/dL AST (17-59) U/L ALT (0-50) U/L Alkaline Phosphatase (38-126) U/L Troponin I < 0.012 (0.000-0.033) ng/mL NT-Pro-B Natriuret Pep (<300) pg/mL Serum Total Protein (6.3-8.2) g/dL Albumin (3.5-5.0) g/dL Procalcitonin (0.030-0.080) ng/mL Urine Color Yellow (Yellow) Urine Appearance Turbid A (Clear) Urine pH 6.5 (4.6-8.0) Ur Specific [place] 1.015 (1.005-1.030) Urine Protein 100 A (Negative) Urine Glucose (UA) Negative (Negative) mg/dL Urine Ketones Trace A (Negative) Urine Blood Small A (Negative) Urine Nitrite Negative (Negative) Urine Bilirubin Negative (Negative) Urine Urobilinogen 1.0 A (0.2) mg/dL Ur Leukocyte Esterase Large A (Negative) U Hyaline Cast (Auto) 20-50 (0-2) /LPF Urine Microscopic RBC 3-5 (0-5) /HPF Urine Microscopic WBC >100 A (0-5) /HPF Ur Epithelial Cells None Seen (None Seen) /HPF Urine Bacteria Many A (None Seen) /HPF Urine Culture Reflexed YES (NO) Stl Occult Blood (IFOB) NEGATIVE (NEGATIVE) ABO Group Rh Factor Antibody Screen (NEGATIVE) 04/08/25 04/08/25 04/08/25 Range/Units 14:44 16:45 17:40 WBC (4.23-9.07) x10^3/uL RBC (4.63-6.08) x10^6/uL Hgb (13.7-17.5) g/dL Hct (40.1-51.0) % MCV (79.0-92.2) fL MCH (25.7-32.2) pg MCHC (32.3-36.5) g/dL RDW (11.6-14.4) % Plt Count (163-337) x10^3/uL MPV (9.4-12.4) fL Gran % (34.0-67.9) % Immature Gran % (Auto) (0.001-0.429) % Nucleat RBC Rel Count (0.00-0.2) % Eos # (Auto) (0.04-0.54) x10^3/uL Immature Gran # (Auto) (0.001-0.031) x10^3u/L Absolute Lymphs (auto) (1.32-3.57) x10^3/uL Absolute Monos (auto) (0.30-0.82) x10^3/uL Absolute Nucleated RBC (0.00-0.012) x10^3u/L Lymphocytes % (21.8-53.1) % Monocytes % (5.3-12.2) % Eosinophils % (0.8-7.0) % Basophils % (0.2-1.2) % Absolute Granulocytes (1.78-5.38) x10^3/uL Basophils # (0.01-0.08) x10^3/uL Sodium (135-145) mmol/L Potassium (3.5-5.1) mmol/L Chloride (98-107) mmol/L Carbon Dioxide (22-30) mmol/L Anion Gap (5-15) MEQ/L BUN (9-20) mg/dL Creatinine (0.66-1.25) mg/dL Estimated GFR ML/MIN Glucose (74-106) mg/dL POC Glucometer 153 H (74 to 106) mg/dL Hemoglobin A1c (4.5-6.0) % Lactic Acid (0.4-2.0) Calcium (8.4-10.2) mg/dL Magnesium (1.6-2.3) mg/dL Total Bilirubin (0.2-1.3) mg/dL AST (17-59) U/L ALT (0-50) U/L Alkaline Phosphatase (38-126) U/L Troponin I < 0.012 (0.000-0.033) ng/mL NT-Pro-B Natriuret Pep (<300) pg/mL Serum Total Protein (6.3-8.2) g/dL Albumin (3.5-5.0) g/dL Procalcitonin (0.030-0.080) ng/mL Urine Color Yellow (Yellow) Urine Appearance Clear (Clear) Urine pH 7.0 (4.6-8.0) Ur Specific [place] 1.010 (1.005-1.030) Urine Protein 30 (Negative) Urine Glucose (UA) Negative (Negative) mg/dL Urine Ketones Negative (Negative) Urine Blood Small A (Negative) Urine Nitrite Negative (Negative) Urine Bilirubin Negative (Negative) Urine Urobilinogen 0.2 (0.2) mg/dL Ur Leukocyte Esterase Moderate A (Negative) U Hyaline Cast (Auto) NONE SEEN (0-2) /LPF Urine Microscopic RBC 11-20 A (0-5) /HPF Urine Microscopic WBC 51-100 A (0-5) /HPF Ur Epithelial Cells None Seen (None Seen) /HPF Urine Bacteria None Seen (None Seen) /HPF Urine Culture Reflexed ORDERED SEPARATELY (NO) Stl Occult Blood (IFOB) (NEGATIVE) ABO Group Rh Factor Antibody Screen (NEGATIVE) 04/08/25 Range/Units 22:22 WBC (4.23-9.07) x10^3/uL RBC (4.63-6.08) x10^6/uL Hgb (13.7-17.5) g/dL Hct (40.1-51.0) % MCV (79.0-92.2) fL MCH (25.7-32.2) pg MCHC (32.3-36.5) g/dL RDW (11.6-14.4) % Plt Count (163-337) x10^3/uL MPV (9.4-12.4) fL Gran % (34.0-67.9) % Immature Gran % (Auto) (0.001-0.429) % Nucleat RBC Rel Count (0.00-0.2) % Eos # (Auto) (0.04-0.54) x10^3/uL Immature Gran # (Auto) (0.001-0.031) x10^3u/L Absolute Lymphs (auto) (1.32-3.57) x10^3/uL Absolute Monos (auto) (0.30-0.82) x10^3/uL Absolute Nucleated RBC (0.00-0.012) x10^3u/L Lymphocytes % (21.8-53.1) % Monocytes % (5.3-12.2) % Eosinophils % (0.8-7.0) % Basophils % (0.2-1.2) % Absolute Granulocytes (1.78-5.38) x10^3/uL Basophils # (0.01-0.08) x10^3/uL Sodium (135-145) mmol/L Potassium (3.5-5.1) mmol/L Chloride (98-107) mmol/L Carbon Dioxide (22-30) mmol/L Anion Gap (5-15) MEQ/L BUN (9-20) mg/dL Creatinine (0.66-1.25) mg/dL Estimated GFR ML/MIN Glucose (74-106) mg/dL POC Glucometer 175 H (74 to 106) mg/dL Hemoglobin A1c (4.5-6.0) % Lactic Acid (0.4-2.0) Calcium (8.4-10.2) mg/dL Magnesium (1.6-2.3) mg/dL Total Bilirubin (0.2-1.3) mg/dL AST (17-59) U/L ALT (0-50) U/L Alkaline Phosphatase (38-126) U/L Troponin I (0.000-0.033) ng/mL NT-Pro-B Natriuret Pep (<300) pg/mL Serum Total Protein (6.3-8.2) g/dL Albumin (3.5-5.0) g/dL Procalcitonin (0.030-0.080) ng/mL Urine Color (Yellow) Urine Appearance (Clear) Urine pH (4.6-8.0) Ur Specific [place] (1.005-1.030) Urine Protein (Negative) Urine Glucose (UA) (Negative) mg/dL Urine Ketones (Negative) Urine Blood (Negative) Urine Nitrite (Negative) Urine Bilirubin (Negative) Urine Urobilinogen (0.2) mg/dL Ur Leukocyte Esterase (Negative) U Hyaline Cast (Auto) (0-2) /LPF Urine Microscopic RBC (0-5) /HPF Urine Microscopic WBC (0-5) /HPF Ur Epithelial Cells (None Seen) /HPF Urine Bacteria (None Seen) /HPF Urine Culture Reflexed (NO) Stl Occult Blood (IFOB) (NEGATIVE) ABO Group Rh Factor Antibody Screen (NEGATIVE) Accuchecks Date 04/08/25 Date 04/08/25 Time 22:22 Time 16:46 - Radiology Impressions Radiology Exams & Impressions: Radiology Procedures Category Date Time Status CHEST 1 VIEW (PORTABLE) Stat Exams 04/08/25 13:38 Completed KNEE (3 VIEWS) Urgent Exams 04/08/25 15:45 Completed - Other Procedures and Tests Respiratory Therapy 04/08/25 13:38 Incentive Spirometry UD 04/08/25 17:07 Respiratory Therapy Assessment ONCE JAI Encounter - JAI Encounter Attestation JAI Encounter Attestation: "IhavepersonallyseenandCAMRYN Livingston andhavediscussed pertinent aspects of their care with Jarret Muller agree with the history, physical exam (any modifications based on my personal exam will be noted below), assessment, and plan as outlined in original note. Please see immediately below for my summary of findings and additional assessment and plan along with any meaningful corrections/explanations to the Subjective/Objective portions of the JAI note will be noted." My portion of the encounter took place via telemedicine. -Patient admitted with septic shock likely secondary to UTI. Started on levaquin based on prior cultures with pseudomonas and his chronic wadsworth was also changed. He has been following up with wound care as outpatient and there was plan for wound vac today however patient got admitted. Will see if we can get asssitance with wound vac placement here. Recent CT abdomen/pelvis in December did not report any abscess/osteomyelitis and there is no malodorous discharge at this time per ER physician.
[2025-04-08] MEDS ORDERED: HUMALOG SQ PRN (13:38)
[2025-04-08] MEDS ORDERED: Zofran 4 MG/2 ML VIAL IV PRN (13:38)
[2025-04-08] MEDS ORDERED: DUONEB 0.5-3 MG/3 ml Neb IH PRN (13:38)
--- NOTE | 2025-04-08 14:09 | XRAY ---
Indication: Leukocytosis. Cough. Comparison: January 02, 2025 PA/lateral chest better inflated and is now clear. Heart not enlarged. Bony thorax intact again with osteopenia and degenerative change. No acute findings.
[2025-04-08] MEDS: NORCO 5/325 MG PO PRN (14:31)
[2025-04-08 14:50] LABS: Glucose, Urine Negative (Negative); Protein,Urine Dip 30 (Negative); WBC 51-100 /HPF (0-5)
[2025-04-08] MEDS: Protonix 40MG Tablet PO SCH (15:06)
--- NOTE | 2025-04-08 16:33 | XRAY ---
Indication: Pain. Comparison: None 3 view right knee demonstrates mild/moderate tricompartmental degenerative changes greatest medial compartment, tiny nonspecific effusion, small spurring tibial tuberosity, tiny posterior fabella, and moderate scattered vascular calcifications. No other bony, articular, or soft tissue abnormalities.
[2025-04-08] MEDS: NOREPINEPHRINE 8 MG/250 ML-D5W 8 MG/250 ML PLAST..BAG IV PRN (18:45)
--- NOTE | 2025-04-09 05:22 | PCM.NOTE ---
Date and Time: 04/09/25 0521 Subjective Assessment: is a 79 year old male with a pmhx of Parkinsons disease, hypertension, type 2 diabetes mellitus, coronary artery disease, a chronic non- healing sacral decubitus ulcer, and a remote colostomy, and urinary retention with chronic wadsworth catheter who presented to the ED 04/08/25 with acute onset hypotension, dizziness, and generalized weakness beginning earlier today. 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 The nurse noted he was hypotensive when she checked his vitals. He reports that he generally feels this way when he needs antibiotics for his chronic decubitus sacral wound. He completed antibiotics most recently about three weeks ago at [facility]. He was released from [facility] shortly after. Chart review confirms a baseline of chronic lower extremity weakness, frequent falls, and bilateral leg pain, most recently documented during an December 2024 admission. At that time, the patient had a urinary tract infection and a chronic sacral decubitus ulcer. Prior wound cultures from 01/07/25 showed Pseudomonas aeruginosa and Morganella morganii (both pansensitive), and urine culture from 01/02/25 also grew Pseudomonas, treated with levofloxacin. Patient report that he receives weekly wound care at [facility] and recently his wound vac came off and was to be replaced today. Denies fever,cough, sob, cp, abdominal pain, [place], N/V/D. On ED arrival, the patient was hypotensive with a BP of 66/39. He received a 1-liter IV fluid bolus, after which BP improved to 111/90. Although vasopressor support was initially considered, the patient ultimately responded to fluids alone and did not require Levophed. EKG revealed sinus rhythm at a rate of 68, normal axis, normal QRS and ST-T segments, short IN interval, and QTc of 443 msno signs of acute ischemia. Lab results showed mild leukocytosis (WBC 10.3), normocytic anemia (Hgb 8.3, consistent with baseline), and procalcitonin (0.103). Urinalysis was positive for large leukocyte esterase; stool occult blood negative. The patient received ceftriaxone, levofloxacin, and IV fluids in the ED and was admitted for management of hypotension and suspected urinary tract infection. 04/09/25: Met with patient at bedside. Patient reports improvement in generalized weakness and resolution of dizziness. He currently resides alone at home but receives home health care (HHC) services for 12 hours daily. He expressed a strong preference not to return to a rehabilitation facility. Per nursing staff, the home health agency has reported that the patient may be too clinically complex to continue receiving current services. Case management (CM) has been consulted to reassess HHC eligibility and explore appropriate discharge planning options. At baseline patient ambulates with walker and has [facility] for assistance with his ADLs. Patient has remained afebrile overnight. Laboratory parameters have shown improvement. He was initiated on a norepinephrine (Levophed) infusion overnight, which is currently titrated to 3.75 mL/hr; plans are in place to attempt weaning as tolerated. He remains on levofloxacin pending final wound and urine culture results.Physical therapy has evaluated the sacral wound. Wound VAC supplies are currently unavailable; therefore, wet-to-dry dressings will be continued through the weekend. Wound VAC placement is anticipated on Friday once supplies become available. - Review of Systems Constitutional: Weakness Eyes: No Symptoms Ears, Nose, & Throat: No Symptoms Respiratory: No Symptoms Cardiac: No Symptoms Abdominal/Gastrointestinal: No Symptoms Genitourinary Symptoms: No Symptoms Musculoskeletal: Joint Pain (right knee) Neurological: No Symptoms Psychological: No Symptoms Endocrine: No Symptoms Hematologic/Lymphatic: No Symptoms Immunological/Allergic: No Symptoms Objective Exam General Appearance: no apparent distress Neurologic Exam: alert, oriented x 3, cooperative Skin Exam: pale Wound Assessment: Skin/Wound Assessment Wound/Incision Assessment Start: 04/08/25 14:07 Text: Status: Active Freq: Q6H Protocol: Document 04/09/25 02:00 KD (Rec: 04/09/25 03:13 KD [id number]) Wound/Incision Assessment Sacrum Wound Assessment Shift Assessment Wound Type Pressure Ulcer Wound Stage Stage IV Dressing Status Dry & Intact Drainage Amount None Secondary Dressing Hydrocolloid Comment JOAN, dressed by previous shift , CDI - remains true Wound Photo Photo Taken No Respiratory Exam: normal breath sounds, lungs clear Cardiovascular Exam: regular rate/rhythm, normal heart sounds Gastrointestinal/Abdomen Exam: soft, normal bowel sounds, other (colostomy) Extremity Exam: normal inspection Back Exam: normal inspection Male Genitalia Exam: other (wadsworth cath) Objective Data Vital Signs: Vital Signs - 24 hr Temp Pulse Resp BP BP Pulse Ox 04/09/25 05:00 79 22 93/53 96 04/09/25 04:30 71 16 100/57 94 L 04/09/25 04:00 98.4 F 69 17 110/59 94 L 04/09/25 03:36 67 16 94/53 97 04/09/25 03:30 70 15 87/50 95 04/09/25 03:01 75 21 108/72 91 L 04/09/25 02:31 77 16 102/56 95 04/09/25 02:01 75 17 137/62 94 L 04/09/25 01:30 78 15 129/59 97 04/09/25 01:00 73 20 143/62 95 04/09/25 00:30 65 16 123/60 96 04/09/25 00:01 69 04/09/25 00:00 99.0 F 69 15 123/57 96 04/08/25 23:30 72 18 122/57 95 04/08/25 23:00 72 17 111/55 95 04/08/25 22:30 79 18 133/63 95 04/08/25 22:00 80 18 124/63 94 L 04/08/25 21:30 78 17 109/53 94 L 04/08/25 21:00 78 17 140/67 95 04/08/25 20:30 78 17 140/68 95 04/08/25 20:00 99.3 F 70 19 140/64 94 L 04/08/25 19:30 83 18 136/61 04/08/25 19:01 70 17 141/63 94 L 04/08/25 18:31 66 17 81/40 96 04/08/25 18:23 70 15 93/66 96 04/08/25 18:00 71 20 95/67 95 04/08/25 17:31 15 93/47 95 04/08/25 17:15 18 91/44 04/08/25 17:11 71 17 87/37 04/08/25 17:01 75 16 89/44 04/08/25 16:31 99.0 F 23 95/33 04/08/25 16:30 88 04/08/25 16:00 88 14 105/52 04/08/25 15:34 75 20 79/43 04/08/25 15:31 74 19 66/43 04/08/25 15:12 76 17 136/114 04/08/25 14:26 77 15 101/70 97 04/08/25 13:38 76 16 97 04/08/25 13:05 97 H 16 111/90 96 04/08/25 13:00 97.2 F 87 16 111/90 96 04/08/25 12:30 108/51 04/08/25 12:20 83 17 108/57 04/08/25 12:17 83 15 115/57 04/08/25 12:15 82 21 96/55 04/08/25 12:12 81 13 121/92 04/08/25 12:03 76 13 83/38 04/08/25 12:01 77 16 75/32 04/08/25 11:51 74 17 115/76 04/08/25 11:41 75 17 95/51 04/08/25 11:37 73 16 184/157 94 L 04/08/25 11:35 79 18 96 04/08/25 11:31 81 15 185/159 93 L 04/08/25 11:21 80 18 103/89 93 L 04/08/25 11:11 75 14 80/38 94 L 04/08/25 11:01 77 14 69/52 93 L 04/08/25 10:50 74 18 96/51 94 L 04/08/25 10:41 76 19 96/52 94 L 04/08/25 10:31 77 21 83/46 95 04/08/25 10:20 73 14 77/52 96 04/08/25 10:11 76 19 79/44 04/08/25 10:01 74 19 82/33 04/08/25 09:50 74 20 79/35 04/08/25 09:48 75 13 74/33 04/08/25 09:40 71 18 62/36 95 04/08/25 09:30 71 7 L 66/39 92 L 04/08/25 08:52 97.2 F 68 16 60/36 93 L Pain Assessment - Last Documented Pain Intensity 6 Pain Scale Used 0-10 Pain Scale Intake and Output: Intake & Output 04/06/25 04/07/25 04/08/25 04/09/25 11:59 11:59 11:59 11:59 Intake Total 1050 Output Total 2900 Balance -1850 Weight 101.1 kg 101.1 kg Lab Results: Lab Results-Last 24 Hours 04/08/25 04/08/25 04/08/25 Range/Units 09:05 09:15 09:15 WBC 10.3 H (4.23-9.07) x10^3/uL RBC 2.94 L (4.63-6.08) x10^6/uL Hgb 8.3 L (13.7-17.5) g/dL Hct 25.4 L (40.1-51.0) % MCV 86.4 (79.0-92.2) fL MCH 28.2 (25.7-32.2) pg MCHC 32.7 (32.3-36.5) g/dL RDW 15.7 H (11.6-14.4) % Plt Count 254 (163-337) x10^3/uL MPV 9.5 (9.4-12.4) fL Gran % 53.1 (34.0-67.9) % Immature Gran % (Auto) 1.1 H (0.001-0.429) % Nucleat RBC Rel Count 0.0 (0.00-0.2) % Eos # (Auto) 0.27 (0.04-0.54) x10^3/uL Immature Gran # (Auto) 0.11 H (0.001-0.031) x10^3u/L Absolute Lymphs (auto) 3.49 (1.32-3.57) x10^3/uL Absolute Monos (auto) 0.91 H (0.30-0.82) x10^3/uL Absolute Nucleated RBC 0.00 (0.00-0.012) x10^3u/L Lymphocytes % 33.9 (21.8-53.1) % Monocytes % 8.8 (5.3-12.2) % Eosinophils % 2.6 (0.8-7.0) % Basophils % 0.5 (0.2-1.2) % Absolute Granulocytes 5.48 H (1.78-5.38) x10^3/uL Basophils # 0.05 (0.01-0.08) x10^3/uL Sodium 134 L (135-145) mmol/L Potassium 4.5 (3.5-5.1) mmol/L Chloride 100 (98-107) mmol/L Carbon Dioxide 25 (22-30) mmol/L Anion Gap 13.0 (5-15) MEQ/L BUN 45 H (9-20) mg/dL Creatinine 1.21 (0.66-1.25) mg/dL Estimated GFR 61.7 ML/MIN Glucose 178 H (74-106) mg/dL POC Glucometer (74 to 106) mg/dL Hemoglobin A1c 5.77 (4.5-6.0) % Lactic Acid (0.4-2.0) Calcium 9.0 (8.4-10.2) mg/dL Magnesium 1.7 (1.6-2.3) mg/dL Total Bilirubin 0.50 (0.2-1.3) mg/dL AST 19 (17-59) U/L ALT 8 (0-50) U/L Alkaline Phosphatase 102 (38-126) U/L Troponin I (0.000-0.033) ng/mL NT-Pro-B Natriuret Pep 242 (<300) pg/mL Serum Total Protein 6.1 L (6.3-8.2) g/dL Albumin 3.2 L (3.5-5.0) g/dL Procalcitonin 0.103 H (0.030-0.080) ng/mL Urine Color (Yellow) Urine Appearance (Clear) Urine pH (4.6-8.0) Ur Specific [place] (1.005-1.030) Urine Protein (Negative) Urine Glucose (UA) (Negative) mg/dL Urine Ketones (Negative) Urine Blood (Negative) Urine Nitrite (Negative) Urine Bilirubin (Negative) Urine Urobilinogen (0.2) mg/dL Ur Leukocyte Esterase (Negative) U Hyaline Cast (Auto) (0-2) /LPF Urine Microscopic RBC (0-5) /HPF Urine Microscopic WBC (0-5) /HPF Ur Epithelial Cells (None Seen) /HPF Urine Bacteria (None Seen) /HPF Urine Culture Reflexed (NO) Stl Occult Blood (IFOB) (NEGATIVE) ABO Group Rh Factor Antibody Screen (NEGATIVE) 04/08/25 04/08/25 04/08/25 Range/Units 09:15 09:20 09:22 WBC (4.23-9.07) x10^3/uL RBC (4.63-6.08) x10^6/uL Hgb (13.7-17.5) g/dL Hct (40.1-51.0) % MCV (79.0-92.2) fL MCH (25.7-32.2) pg MCHC (32.3-36.5) g/dL RDW (11.6-14.4) % Plt Count (163-337) x10^3/uL MPV (9.4-12.4) fL Gran % (34.0-67.9) % Immature Gran % (Auto) (0.001-0.429) % Nucleat RBC Rel Count (0.00-0.2) % Eos # (Auto) (0.04-0.54) x10^3/uL Immature Gran # (Auto) (0.001-0.031) x10^3u/L Absolute Lymphs (auto) (1.32-3.57) x10^3/uL Absolute Monos (auto) (0.30-0.82) x10^3/uL Absolute Nucleated RBC (0.00-0.012) x10^3u/L Lymphocytes % (21.8-53.1) % Monocytes % (5.3-12.2) % Eosinophils % (0.8-7.0) % Basophils % (0.2-1.2) % Absolute Granulocytes (1.78-5.38) x10^3/uL Basophils # (0.01-0.08) x10^3/uL Sodium (135-145) mmol/L Potassium (3.5-5.1) mmol/L Chloride (98-107) mmol/L Carbon Dioxide (22-30) mmol/L Anion Gap (5-15) MEQ/L BUN (9-20) mg/dL Creatinine (0.66-1.25) mg/dL Estimated GFR ML/MIN Glucose (74-106) mg/dL POC Glucometer (74 to 106) mg/dL Hemoglobin A1c (4.5-6.0) % Lactic Acid 1.3 (0.4-2.0) Calcium (8.4-10.2) mg/dL Magnesium (1.6-2.3) mg/dL Total Bilirubin (0.2-1.3) mg/dL AST (17-59) U/L ALT (0-50) U/L Alkaline Phosphatase (38-126) U/L Troponin I < 0.012 (0.000-0.033) ng/mL NT-Pro-B Natriuret Pep (<300) pg/mL Serum Total Protein (6.3-8.2) g/dL Albumin (3.5-5.0) g/dL Procalcitonin (0.030-0.080) ng/mL Urine Color (Yellow) Urine Appearance (Clear) Urine pH (4.6-8.0) Ur Specific [place] (1.005-1.030) Urine Protein (Negative) Urine Glucose (UA) (Negative) mg/dL Urine Ketones (Negative) Urine Blood (Negative) Urine Nitrite (Negative) Urine Bilirubin (Negative) Urine Urobilinogen (0.2) mg/dL Ur Leukocyte Esterase (Negative) U Hyaline Cast (Auto) (0-2) /LPF Urine Microscopic RBC (0-5) /HPF Urine Microscopic WBC (0-5) /HPF Ur Epithelial Cells (None Seen) /HPF Urine Bacteria (None Seen) /HPF Urine Culture Reflexed (NO) Stl Occult Blood (IFOB) (NEGATIVE) ABO Group O Rh Factor POSITIVE Antibody Screen NEGATIVE (NEGATIVE) 04/08/25 04/08/25 04/08/25 Range/Units 10:23 11:39 14:08 WBC (4.23-9.07) x10^3/uL RBC (4.63-6.08) x10^6/uL Hgb (13.7-17.5) g/dL Hct (40.1-51.0) % MCV (79.0-92.2) fL MCH (25.7-32.2) pg MCHC (32.3-36.5) g/dL RDW (11.6-14.4) % Plt Count (163-337) x10^3/uL MPV (9.4-12.4) fL Gran % (34.0-67.9) % Immature Gran % (Auto) (0.001-0.429) % Nucleat RBC Rel Count (0.00-0.2) % Eos # (Auto) (0.04-0.54) x10^3/uL Immature Gran # (Auto) (0.001-0.031) x10^3u/L Absolute Lymphs (auto) (1.32-3.57) x10^3/uL Absolute Monos (auto) (0.30-0.82) x10^3/uL Absolute Nucleated RBC (0.00-0.012) x10^3u/L Lymphocytes % (21.8-53.1) % Monocytes % (5.3-12.2) % Eosinophils % (0.8-7.0) % Basophils % (0.2-1.2) % Absolute Granulocytes (1.78-5.38) x10^3/uL Basophils # (0.01-0.08) x10^3/uL Sodium (135-145) mmol/L Potassium (3.5-5.1) mmol/L Chloride (98-107) mmol/L Carbon Dioxide (22-30) mmol/L Anion Gap (5-15) MEQ/L BUN (9-20) mg/dL Creatinine (0.66-1.25) mg/dL Estimated GFR ML/MIN Glucose (74-106) mg/dL POC Glucometer (74 to 106) mg/dL Hemoglobin A1c (4.5-6.0) % Lactic Acid (0.4-2.0) Calcium (8.4-10.2) mg/dL Magnesium (1.6-2.3) mg/dL Total Bilirubin (0.2-1.3) mg/dL AST (17-59) U/L ALT (0-50) U/L Alkaline Phosphatase (38-126) U/L Troponin I < 0.012 (0.000-0.033) ng/mL NT-Pro-B Natriuret Pep (<300) pg/mL Serum Total Protein (6.3-8.2) g/dL Albumin (3.5-5.0) g/dL Procalcitonin (0.030-0.080) ng/mL Urine Color Yellow (Yellow) Urine Appearance Turbid A (Clear) Urine pH 6.5 (4.6-8.0) Ur Specific [place] 1.015 (1.005-1.030) Urine Protein 100 A (Negative) Urine Glucose (UA) Negative (Negative) mg/dL Urine Ketones Trace A (Negative) Urine Blood Small A (Negative) Urine Nitrite Negative (Negative) Urine Bilirubin Negative (Negative) Urine Urobilinogen 1.0 A (0.2) mg/dL Ur Leukocyte Esterase Large A (Negative) U Hyaline Cast (Auto) 20-50 (0-2) /LPF Urine Microscopic RBC 3-5 (0-5) /HPF Urine Microscopic WBC >100 A (0-5) /HPF Ur Epithelial Cells None Seen (None Seen) /HPF Urine Bacteria Many A (None Seen) /HPF Urine Culture Reflexed YES (NO) Stl Occult Blood (IFOB) NEGATIVE (NEGATIVE) ABO Group Rh Factor Antibody Screen (NEGATIVE) 04/08/25 04/08/25 04/08/25 Range/Units 14:44 16:45 17:40 WBC (4.23-9.07) x10^3/uL RBC (4.63-6.08) x10^6/uL Hgb (13.7-17.5) g/dL Hct (40.1-51.0) % MCV (79.0-92.2) fL MCH (25.7-32.2) pg MCHC (32.3-36.5) g/dL RDW (11.6-14.4) % Plt Count (163-337) x10^3/uL MPV (9.4-12.4) fL Gran % (34.0-67.9) % Immature Gran % (Auto) (0.001-0.429) % Nucleat RBC Rel Count (0.00-0.2) % Eos # (Auto) (0.04-0.54) x10^3/uL Immature Gran # (Auto) (0.001-0.031) x10^3u/L Absolute Lymphs (auto) (1.32-3.57) x10^3/uL Absolute Monos (auto) (0.30-0.82) x10^3/uL Absolute Nucleated RBC (0.00-0.012) x10^3u/L Lymphocytes % (21.8-53.1) % Monocytes % (5.3-12.2) % Eosinophils % (0.8-7.0) % Basophils % (0.2-1.2) % Absolute Granulocytes (1.78-5.38) x10^3/uL Basophils # (0.01-0.08) x10^3/uL Sodium (135-145) mmol/L Potassium (3.5-5.1) mmol/L Chloride (98-107) mmol/L Carbon Dioxide (22-30) mmol/L Anion Gap (5-15) MEQ/L BUN (9-20) mg/dL Creatinine (0.66-1.25) mg/dL Estimated GFR ML/MIN Glucose (74-106) mg/dL POC Glucometer 153 H (74 to 106) mg/dL Hemoglobin A1c (4.5-6.0) % Lactic Acid (0.4-2.0) Calcium (8.4-10.2) mg/dL Magnesium (1.6-2.3) mg/dL Total Bilirubin (0.2-1.3) mg/dL AST (17-59) U/L ALT (0-50) U/L Alkaline Phosphatase (38-126) U/L Troponin I < 0.012 (0.000-0.033) ng/mL NT-Pro-B Natriuret Pep (<300) pg/mL Serum Total Protein (6.3-8.2) g/dL Albumin (3.5-5.0) g/dL Procalcitonin (0.030-0.080) ng/mL Urine Color Yellow (Yellow) Urine Appearance Clear (Clear) Urine pH 7.0 (4.6-8.0) Ur Specific [place] 1.010 (1.005-1.030) Urine Protein 30 (Negative) Urine Glucose (UA) Negative (Negative) mg/dL Urine Ketones Negative (Negative) Urine Blood Small A (Negative) Urine Nitrite Negative (Negative) Urine Bilirubin Negative (Negative) Urine Urobilinogen 0.2 (0.2) mg/dL Ur Leukocyte Esterase Moderate A (Negative) U Hyaline Cast (Auto) NONE SEEN (0-2) /LPF Urine Microscopic RBC 11-20 A (0-5) /HPF Urine Microscopic WBC 51-100 A (0-5) /HPF Ur Epithelial Cells None Seen (None Seen) /HPF Urine Bacteria None Seen (None Seen) /HPF Urine Culture Reflexed ORDERED SEPARATELY (NO) Stl Occult Blood (IFOB) (NEGATIVE) ABO Group Rh Factor Antibody Screen (NEGATIVE) 04/08/25 Range/Units 22:22 WBC (4.23-9.07) x10^3/uL RBC (4.63-6.08) x10^6/uL Hgb (13.7-17.5) g/dL Hct (40.1-51.0) % MCV (79.0-92.2) fL MCH (25.7-32.2) pg MCHC (32.3-36.5) g/dL RDW (11.6-14.4) % Plt Count (163-337) x10^3/uL MPV (9.4-12.4) fL Gran % (34.0-67.9) % Immature Gran % (Auto) (0.001-0.429) % Nucleat RBC Rel Count (0.00-0.2) % Eos # (Auto) (0.04-0.54) x10^3/uL Immature Gran # (Auto) (0.001-0.031) x10^3u/L Absolute Lymphs (auto) (1.32-3.57) x10^3/uL Absolute Monos (auto) (0.30-0.82) x10^3/uL Absolute Nucleated RBC (0.00-0.012) x10^3u/L Lymphocytes % (21.8-53.1) % Monocytes % (5.3-12.2) % Eosinophils % (0.8-7.0) % Basophils % (0.2-1.2) % Absolute Granulocytes (1.78-5.38) x10^3/uL Basophils # (0.01-0.08) x10^3/uL Sodium (135-145) mmol/L Potassium (3.5-5.1) mmol/L Chloride (98-107) mmol/L Carbon Dioxide (22-30) mmol/L Anion Gap (5-15) MEQ/L BUN (9-20) mg/dL Creatinine (0.66-1.25) mg/dL Estimated GFR ML/MIN Glucose (74-106) mg/dL POC Glucometer 175 H (74 to 106) mg/dL Hemoglobin A1c (4.5-6.0) % Lactic Acid (0.4-2.0) Calcium (8.4-10.2) mg/dL Magnesium (1.6-2.3) mg/dL Total Bilirubin (0.2-1.3) mg/dL AST (17-59) U/L ALT (0-50) U/L Alkaline Phosphatase (38-126) U/L Troponin I (0.000-0.033) ng/mL NT-Pro-B Natriuret Pep (<300) pg/mL Serum Total Protein (6.3-8.2) g/dL Albumin (3.5-5.0) g/dL Procalcitonin (0.030-0.080) ng/mL Urine Color (Yellow) Urine Appearance (Clear) Urine pH (4.6-8.0) Ur Specific [place] (1.005-1.030) Urine Protein (Negative) Urine Glucose (UA) (Negative) mg/dL Urine Ketones (Negative) Urine Blood (Negative) Urine Nitrite (Negative) Urine Bilirubin (Negative) Urine Urobilinogen (0.2) mg/dL Ur Leukocyte Esterase (Negative) U Hyaline Cast (Auto) (0-2) /LPF Urine Microscopic RBC (0-5) /HPF Urine Microscopic WBC (0-5) /HPF Ur Epithelial Cells (None Seen) /HPF Urine Bacteria (None Seen) /HPF Urine Culture Reflexed (NO) Stl Occult Blood (IFOB) (NEGATIVE) ABO Group Rh Factor Antibody Screen (NEGATIVE) Radiology Exams: Radiology Procedures Category Date Time Status CHEST 1 VIEW (PORTABLE) Stat Exams 04/08/25 13:38 Completed KNEE (3 VIEWS) Urgent Exams 04/08/25 15:45 Completed Medications: Medications Generic Name Dose Route Start Last Admin Trade Name Freq PRN Reason Stop Dose Admin Acetaminophen 650 mg 04/08/25 13:10 Acetaminophen 325 Mg Tablet PO 05/08/25 13:09 Q4H PRN PRN PAIN, FEVER, HEADACHE Hydrocodone Bitart/Acetaminophen 1 tab 04/08/25 13:38 04/09/25 02:04 Hydrocodone/Apap 5/325 1 Tab Tablet PO 04/13/25 13:37 1 tab Q4H PRN PRN Administration PAIN Sodium Chloride 1,000 mls @ 100 mls/hr 04/08/25 13:10 04/09/25 02:04 Sodium Chloride 0.9% 1000 Ml IV 05/08/25 13:09 100 mls/hr .Q10H CONI Administration Levofloxacin/Dextrose 750 mg in 150 mls @ 100 mls/hr 04/09/25 10:00 Levofloxacin 750mg/150ml D5w IV 05/09/25 09:59 Q24H10 CONI Norepinephrine/Dextrose 8 mg in 250 mls @ 15 mls/hr 04/08/25 17:58 04/09/25 05:10 Norepinephrine 8 Mg/250 Ml-D5w IV 05/08/25 17:57 2 mcg/min .[id number] PRN 3.75 mls/hr HYPOTENSION Titration Protocol 8 MCG/MIN Insulin Human Lispro 0 unit 04/08/25 13:38 Insulin Lispro 1 Unit SQ 05/08/25 13:37 UD PRN HYPERGLYCEMIA Ondansetron HCl 4 mg 04/08/25 13:38 Ondansetron Hcl 4 Mg/2 Ml Vial IV 05/08/25 13:37 Q6H PRN PRN NAUSEA/VOMITING Pantoprazole Sodium 40 mg 04/08/25 14:00 04/08/25 15:06 Protonix (Pantoprazole) 40 Mg Tablet PO 05/08/25 13:59 40 mg DAILY CONI Administration Discontinued Medications Generic Name Dose Route Start Last Admin Trade Name Freq PRN Reason Stop Dose Admin Albuterol/Ipratropium 3 ml 04/08/25 13:38 Ipratropium/Albuterol Sulfate 3 Ml Ampul.Neb IH 05/08/25 13:37 Q6H PRN PRN SHORTNESS OF BREATH/WHEEZING Sodium Chloride 1,000 mls @ 250 mls/hr 04/08/25 09:15 04/08/25 10:38 Sodium Chloride 0.9% 1000 Ml IV 05/08/25 09:14 250 mls/hr .Q4H CONI Administration Ceftriaxone Sodium 1 gm in 100 mls @ 200 mls/hr 04/08/25 10:59 04/08/25 11:42 Rocephin 1 Gm / 100 Ml Nacl IV 04/08/25 11:28 Infused STAT ONE Infusion Ceftriaxone Sodium Confirm 04/08/25 11:02 Rocephin 1 Gm / 100 Ml Nacl Administered 04/08/25 11:03 Dose 1 gm in 100 mls @ ud IV .STK-MED ONE Levofloxacin/Dextrose 500 mg in 100 mls @ 100 mls/hr 04/08/25 11:39 04/08/25 11:45 Levofloxacin 500mg/100ml D5w IV 04/08/25 12:38 100 mls/hr STAT STA 100 mls/hr Administration Levofloxacin/Dextrose Confirm 04/08/25 11:44 Levofloxacin 500mg/100ml D5w Administered 04/08/25 11:45 Dose 500 mg in 100 mls @ ud IV .STK-MED ONE Sodium Chloride 1,000 mls @ 999 mls/hr 04/08/25 11:49 04/08/25 11:53 Sodium Chloride 0.9% 1000 Ml IV 04/08/25 12:49 999 mls/hr .Q1H1M STA Administration Norepinephrine/Dextrose 8 mg in 250 mls @ 15 mls/hr 04/08/25 13:10 Norepinephrine 8 Mg/250 Ml-D5w IV 05/08/25 13:09 .[id number] PRN HYPOTENSION Protocol 8 MCG/MIN Insulin Human Regular 0 unit 04/08/25 13:10 Insulin Regular, Human 1 Unit SQ 05/08/25 13:09 UD PRN HYPERGLYCEMIA Multi-Disciplinary Progress Notes: Multi-Disciplinary Progress Notes 04/08/25 16:46 Physical Therapy Note by Jessy([id number])Zandra P.T. CONSULT RECEIVED FOR WOUND CARE. PER [facility]/ [facility], PT. HAS WOUND VAC AND SUPPLIES AT HOME. [facility] NURSE WAS TO PLACE VAC THIS DATE BUT PT. WAS ADMITTED TO [facility] W/ UROSEPSIS. CURRENT PLAN IS NURSING TO PERFORM WET TO DRY DRESSING CHANGES OVER THE WEEKEND AND POA TO BRING VAC AND SUPPLIES IN AND VAC WILL BE APPLIED ON WEDNESDAY 04/11. NURSING TO ASSIST PT. W/ MOBILITY TOLERATED OVER THE WEEKEND TO PREP FOR PT AND OT EVALS ON FRIDAY. Initialized on 04/08/25 16:46 - END OF NOTE Assessment/Plan (1) Sepsis Current Visit: Yes Status: Acute Assessment & Plan: -Meets Sepsis-3 criteria: suspected infection + organ dysfunction (hypotension requiring fluids). -BP improved with 1L fluid bolus IVF; vasopressors not required consider if map < 65 now at 111/90 -Broad-spectrum antibiotics initiated (Levaquin). - WBC, CMP, lactate, renal function reviewed -Most likely multifactorial with UTI/chronic wound - Coccygeal wound cultures from 01/07/25 grew Pseudomonas aeruginosa and Morganella morganii, both pansensitive - A urine culture from 01/02/25 showed Pseudomonas aeruginosa, treated with levofloxacin -Will start levaquin and follow blood and urine cultures -CXR -Tele 04/09: -WBC reviewed at 9.1 -Levophed running at 3.75ml/hr will titrate as appropriate -Wound/urine cultures pending -Continue levaquin pending cultures -CXR reviewed and negative for acute findings -CMP reviewed and unremarkable (2) Urinary tract infection Current Visit: Yes Status: Acute Assessment & Plan: -See sepsis above Code(s): N39.0 - URINARY TRACT INFECTION, SITE NOT SPECIFIED (3) Hypotension Current Visit: Yes Status: Acute Assessment & Plan: -Likely related to early sepsis -Improved with 1L IV fluids; continue fluid support as needed -Hold home antihypertensives until stable - patient states he did not take BP meds today -Monitor blood pressure and MAP; daily CMP/I&O monitoring 04/09: -Levophed drip initiated now titrated to 3.75mls/hr- titrate as appropriate per protocol Code(s): I95.9 - HYPOTENSION, UNSPECIFIED (4) CAD (coronary artery disease) Current Visit: Yes Status: Acute Assessment & Plan: -1 stent placed -continue home meds -EKG without ischemic changes; no chest pain Code(s): I25.10 - ATHSCL HEART DISEASE OF [place] CORONARY ARTERY W/O ANG PCTRS (5) 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 Current Visit: Yes Status: Acute Assessment & Plan: -Hgb 8.3, stable and consistent with prior lab review -Monitor CBC -No transfusion indicated at this time 04/09: -Hgb stable at 8.2 Code(s): D50.0 - IRON DEFICIENCY ANEMIA SECONDARY TO BLOOD LOSS (CHRONIC) (6) Colostomy care Current Visit: Yes Status: Acute Assessment & Plan: -No acute complications noted -Monitor stoma and skin integrity -Routine ostomy care Code(s): Z43.3 - ENCOUNTER FOR ATTENTION TO COLOSTOMY (7) Parkinson disease Current Visit: Yes Status: Acute Assessment & Plan: -continue home regimen ### Right Knee Pain -right knee xray reviewed from 04/08 demonstrating mild to moderate arthritis in all compartments, worst in the medial side. There's a small, nonspecific joint effusion, minor bone spurs below the kneecap, a tiny fabella, and moderate vascular calcifications. No other issues were seen -PT eval for Strengthening the quadriceps and improving joint flexibility and stability - Consider a knee brace or offloading brace and ortho consult if pain persists -Apply ice for swelling or heat for stiffness as needed -Pain control Code(s): G20.A1 - PARKINSON'S DIS W/O DYSKINESIA, W/O MENTION OF FLUCTUATIONS (8) Generalized weakness Current Visit: No Status: Acute Assessment & Plan: -PT/OT -Most likely secondary to infection -may need rehab on discharge -prior level of functioning - ambulates with walker - [facility] nurse for 12 hours daily 04/09: -Per nursing staff, the home health agency has reported that the patient may be too clinically complex to continue receiving current services. Case management (CM) has been consulted to reassess [facility] eligibility and explore appropriate discharge planning options Code(s): R53.1 - WEAKNESS (9) Decubitus ulcer Current Visit: No Status: Chronic Qualifiers: Pressure injury location: sacral region Pressure injury stage: unstageable Qualified Code(s): L89.150 - Pressure ulcer of sacral region, unstageable Assessment & Plan: -Stable chronic wound; prior cultures positive for Pseudomonas and Morganella - cultures taken/pictures in chart -OP wound care weekly at the wound center -Wound care consult to replace wound vac- pt brought wound vac/supplies with [facility] -Monitor for signs of local or systemic infection 04/09: -Wound vac to be placed 04/11/25 Code(s): L89.90 - PRESSURE ULCER OF UNSPECIFIED SITE, UNSPECIFIED STAGE (10) Parkinson disease Current Visit: No Status: Chronic Assessment & Plan: -Continue home meds Code(s): G20.A1 - PARKINSON'S DIS W/O DYSKINESIA, W/O MENTION OF FLUCTUATIONS (11) Type II diabetes mellitus Current Visit: No Status: Chronic Qualifiers: Diabetes mellitus half-way insulin use: without half-way use Diabetes mellitus complication status: without complication Qualified Code(s): E11.9 - Type 2 diabetes mellitus without complications Assessment & Plan: -ADA diet -A1c 5.77 -SSI VTE: SCD PPI: protonix Dispo: 2-3 days ? rehab on dc Code status: SCO (2) Urinary tract infection Current Visit: Yes Status: Acute Code(s): N39.0 - URINARY TRACT INFECTION, SITE NOT SPECIFIED (3) Hypotension Current Visit: Yes Status: Acute Code(s): I95.9 - HYPOTENSION, UNSPECIFIED (4) CAD (coronary artery disease) Current Visit: Yes Status: Acute Code(s): I25.10 - ATHSCL HEART DISEASE OF [place] CORONARY ARTERY W/O ANG PCTRS (5) 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 Current Visit: Yes Status: Acute Code(s): D50.0 - IRON DEFICIENCY ANEMIA SECONDARY TO BLOOD LOSS (CHRONIC) (6) Colostomy care Current Visit: Yes Status: Acute Code(s): Z43.3 - ENCOUNTER FOR ATTENTION TO COLOSTOMY (7) Parkinson disease Current Visit: Yes Status: Acute Code(s): G20.A1 - PARKINSON'S DIS W/O DYSKINESIA, W/O MENTION OF FLUCTUATIONS (8) Generalized weakness Current Visit: No Status: Acute Code(s): R53.1 - WEAKNESS (9) Decubitus ulcer Current Visit: No Status: Chronic Qualifiers: Pressure injury location: sacral region Pressure injury stage: unstageable Qualified Code(s): L89.150 - Pressure ulcer of sacral region, unstageable Code(s): L89.90 - PRESSURE ULCER OF UNSPECIFIED SITE, UNSPECIFIED STAGE (10) Parkinson disease Current Visit: No Status: Chronic Code(s): G20.A1 - PARKINSON'S DIS W/O DYSKINESIA, W/O MENTION OF FLUCTUATIONS (11) Type II diabetes mellitus Current Visit: No Status: Chronic Qualifiers: Diabetes mellitus half-way insulin use: without rat exterminator use Diabetes mellitus complication status: without complication Qualified Code(s): E11.9 - Type 2 diabetes mellitus without complications (12) Right knee pain Current Visit: Yes Status: Acute Code(s): M25.561 - PAIN IN RIGHT KNEE
[2025-04-09 06:22] LABS: BASOPHIL % 0.4 % (0.2-1.2); Basophil (Absolute #) 0.04 x10^3/uL (0.01-0.08); Eosinophil (Absolute #) 0.23 x10^3/uL (0.04-0.54); Hematocrit 25.4 % (40.1-51.0); Hemoglobin 8.2 g/dL (13.7-17.5); IMMATURE GRAN # 0.11 x10^3u/L (0.001-0.031); IMMATURE GRAN % 1.2 % (0.001-0.429); Lymphocyte (Absolute #) 3.07 x10^3/uL (1.32-3.57); Mean Corpuscular Hemoglobin 27.9 pg (25.7-32.2); Mean Corpuscular Hgb Concent. 32.3 g/dL (32.3-36.5); Monocyte (Absolute #) 0.75 x10^3/uL (0.30-0.82); NUCLEATED RBC # 0.00 x10^3u/L (0.00-0.012); NUCLEATED RBC % 0.0 % (0.00-0.2); Platelet Count 255 x10^3/uL (163-337); Red Blood Count 2.94 x10^6/uL (4.63-6.08); White Blood Count 9.1 x10^3/uL (4.23-9.07)
[2025-04-09 07:03] LABS: Calcium 9.0 mg/dL (8.4-10.2); Carbon Dioxide 24.0 mmol/L (22-30); Creatinine 1 0.8 mg/dL (0.66-1.25); EST GLOMERULAR FILTRATION RATE 91.2 ML/MIN; Glucose 123.0 mg/dL (74-106); NT PRO BNPII 792.0 pg/mL (<300); Potassium 4.5 mmol/L (3.5-5.1); SGOT/AST 17.0 U/L (17-59); SGPT/ALT 13.0 U/L (0-50); Total Protein 6.4 g/dL (6.3-8.2)
[2025-04-09] MEDS: LEVOFLOXACIN 750MG/150ML D5W 750 MG/150 ML BAG IV SCH (10:07)
[2025-04-09] MEDS ORDERED: MEDICATION INTERVENTION MC SCH (12:00)
[2025-04-09] MEDS: NORCO 10-325 MG PO PRN (12:31)
[2025-04-09] MEDS ORDERED: NON-FORMULARY ITEM (Carbidopa/Levodopa [Carbidopa-Levo 25-100 Mg Odt] 1 EACH Tab.Rapdis) PO SCH (15:00)
[2025-04-09] MEDS: Sinemet 25/100 MG PO SCH (15:06)
[2025-04-09] MEDS: Zetia 10 MG PO SCH (21:54)
[2025-04-09] MEDS: ZOCOR 20MG PO SCH (21:55)
[2025-04-09] MEDS: Lopressor 25MG Tab PO SCH (21:55)
[2025-04-09] MEDS ORDERED: NON-FORMULARY ITEM (Atorvastatin Calcium [Lipitor] 80 MG Tablet) PO SCH (22:00)
--- NOTE | 2025-04-10 05:49 | PCM.NOTE ---
Date and Time: 04/10/25 0548 Subjective Assessment: is a 79 year old male with a pmhx of Parkinsons disease, hypertension, type 2 diabetes mellitus, coronary artery disease, a chronic non- healing sacral decubitus ulcer, and a remote colostomy, and urinary retention with chronic wadsworth catheter who presented to the ED 04/08/25 with acute onset hypotension, dizziness, and generalized weakness beginning earlier today. Patient states he has a [facility] nurse for 12 hours a day and he was getting up to get a bath when he became unsteady on his feet and dizzy. The nurse noted he was hypotensive when she checked his vitals. He reports that he generally feels this way when he needs antibiotics for his chronic decubitus sacral wound. He completed antibiotics most recently about three weeks ago at [facility]. He was released from [facility] shortly after. Chart review confirms a baseline of chronic lower extremity weakness, frequent falls, and bilateral leg pain, most recently documented during an December 2024 admission. At that time, the patient had a urinary tract infection and a chronic sacral decubitus ulcer. Prior wound cultures from 01/07/25 showed Pseudomonas aeruginosa and Morganella morganii (both pansensitive), and urine culture from 01/02/25 also grew Pseudomonas, treated with levofloxacin. Patient report that he receives weekly wound care at [facility] and recently his wound vac came off and was to be replaced today. Denies fever,cough, sob, cp, abdominal pain, MONROE, N/V/D. On ED arrival, the patient was hypotensive with a BP of 66/39. He received a 1-liter IV fluid bolus, after which BP improved to 111/90. Although vasopressor support was initially considered, the patient ultimately responded to fluids alone and did not require Levophed. EKG revealed sinus rhythm at a rate of 68, normal axis, normal QRS and ST-T segments, short WA interval, and QTc of 443 msno signs of acute ischemia. Lab results showed mild leukocytosis (WBC 10.3), normocytic anemia (Hgb 8.3, consistent with baseline), and procalcitonin (0.103). Urinalysis was positive for large leukocyte esterase; stool occult blood negative. The patient received ceftriaxone, levofloxacin, and IV fluids in the ED and was admitted for management of hypotension and suspected urinary tract infection. 04/09/25: Met with patient at bedside. Patient reports improvement in generalized weakness and resolution of dizziness. He currently resides alone at home but receives home health care (HHC) services for 12 hours daily. He expressed a strong preference not to return to a rehabilitation facility. Per nursing staff, the home health agency has reported that the patient may be too clinically complex to continue receiving current services. Case management (CM) has been consulted to reassess HHC eligibility and explore appropriate discharge planning options. At baseline patient ambulates with walker and has [facility] for assistance with his ADLs. Patient has remained afebrile overnight. Laboratory parameters have shown improvement. He was initiated on a norepinephrine (Levophed) infusion overnight, which is currently titrated to 3.75 mL/hr; plans are in place to attempt weaning as tolerated. He remains on levofloxacin pending final wound and urine culture results.Physical therapy has evaluated the sacral wound. Wound VAC supplies are currently unavailable; therefore, wet-to-dry dressings will be continued through the weekend. Wound VAC placement is anticipated on Friday once supplies become available. 04/10/25: Met with patient bedside. Endorses continued knee pain which is chronic and sacral pain which he rates 8/10 on numerical pain scale. Wound culture results showing staphlococcus aureus and pseudomonas aeruginosa not sensitive to levofloxacin. Antibiotics have been changed to Vancomycin and Cefepime. Patient remains on levophed drip at 4mcg/min. Lab findings stable. Will consult general surgery for surgical evaluation of wound. Most likely will need MRI which is not available at this time. Denies fever,cough, sob, cp, abdominal pain, MONROE, dizziness, N/V/D. Critical Care Patient with septic shock secondary to urosepsis, currently requiring vasopressor support with norepinephrine (Levophed) to maintain adequate mean arterial pressure. Broad-spectrum IV antibiotics have been initiated, and the patient is undergoing fluid resuscitation per sepsis protocol. Blood and urine cultures have been obtained. Additionally, the patient has a decubitus ulcer concerning for superimposed soft tissue infection; wound cultures have been sent and wound care is involved. A total of 45 minutes of critical care time was spent at the bedside and in direct patient management, including interpretation of clinical data, titration of vasopressors, hemodynamic monitoring, coordination of care with consulting services, and medical decision-making necessary to assess and support vital organ function. - Review of Systems Constitutional: No Symptoms Eyes: No Symptoms Ears, Nose, & Throat: No Symptoms Respiratory: No Symptoms Cardiac: No Symptoms Abdominal/Gastrointestinal: No Symptoms Genitourinary Symptoms: Other (wadsworth cath) Musculoskeletal: Joint Pain (right knee) Skin: Other (sacral decubitus stage IV) Neurological: No Symptoms Psychological: No Symptoms Endocrine: No Symptoms Hematologic/Lymphatic: No Symptoms Immunological/Allergic: No Symptoms Objective Exam General Appearance: no apparent distress Neurologic Exam: alert, oriented x 3, cooperative Skin Exam: normal color, warm, dry, other (sacral wound -chronic dressed stage IV) Wound Assessment: Skin/Wound Assessment Wound/Incision Assessment Start: 04/08/25 14:07 Text: Status: Active Freq: Q6H Protocol: Document 04/10/25 02:00 KD (Rec: 04/10/25 02:53 KD [id number]) Wound/Incision Assessment Sacrum Wound Assessment Shift Assessment Wound Type Pressure Ulcer Wound Stage Stage IV Dressing Status Dry & Intact Drainage Amount None Primary Dressing Mepilex border 6x6 Comment JOAN, dressing changed by previous shift, CDI - remains true Wound Photo Photo Taken No Eye Exam: PERRL Ears, Nose, Throat Exam: normal ENT inspection Neck Exam: normal inspection, supple Respiratory Exam: normal breath sounds, lungs clear Cardiovascular Exam: regular rate/rhythm, normal heart sounds Gastrointestinal/Abdomen Exam: soft, normal bowel sounds, other (colostomy) Extremity Exam: normal inspection, normal range of motion Back Exam: normal inspection Male Genitalia Exam: deferred Rectal Exam: deferred Objective Data Vital Signs: Vital Signs - 24 hr Temp Pulse Resp BP Pulse Ox 04/10/25 04:04 78 15 115/60 94 L 04/10/25 04:00 97.1 F 90 25 H 92/48 95 04/10/25 03:32 81 17 103/55 95 04/10/25 03:00 99 H 16 125/63 80 L 04/10/25 02:30 76 15 114/52 97 04/10/25 02:00 78 15 113/56 96 04/10/25 01:30 78 14 118/58 97 04/10/25 01:00 68 15 112/58 100 04/10/25 00:30 72 15 114/55 99 04/10/25 00:01 69 04/10/25 00:00 98.2 F 69 15 89/49 100 04/09/25 23:30 76 17 120/59 96 04/09/25 23:00 77 15 110/56 96 04/09/25 22:30 79 15 113/73 99 04/09/25 22:03 84 16 138/66 95 04/09/25 21:30 86 19 127/75 95 04/09/25 21:00 79 16 123/64 94 L 04/09/25 20:31 80 23 129/52 95 04/09/25 20:00 99.2 F 86 18 118/65 95 04/09/25 19:30 83 17 116/69 04/09/25 19:00 91 H 18 113/74 96 04/09/25 18:31 87 19 116/58 04/09/25 18:00 85 20 134/66 04/09/25 17:44 19 118/67 04/09/25 17:30 82 18 04/09/25 17:01 84 20 120/56 04/09/25 16:30 99.3 F 77 17 105/56 04/09/25 16:00 82 16 110/60 04/09/25 15:30 75 17 108/56 04/09/25 15:00 74 17 92/50 04/09/25 14:30 80 16 107/60 04/09/25 14:00 83 17 105/57 04/09/25 13:31 78 17 115/60 04/09/25 13:08 87 20 101/54 04/09/25 13:02 85 16 04/09/25 12:31 82 17 128/72 04/09/25 12:01 98.8 F 76 16 119/53 04/09/25 12:00 80 04/09/25 11:33 73 17 103/42 97 04/09/25 11:05 77 16 71/41 96 04/09/25 11:01 72 19 88/54 04/09/25 10:01 77 18 93/75 04/09/25 09:40 76 16 04/09/25 09:01 77 14 97/57 04/09/25 08:31 18 119/69 04/09/25 08:10 98.2 F 15 115/70 97 04/09/25 08:02 80 16 04/09/25 08:00 78 07/26/25 07:30 16 105/62 04/09/25 07:00 72 16 111/59 95 04/09/25 06:30 72 15 105/58 98 04/09/25 06:00 73 15 109/57 95 Pain Assessment - Last Documented Pain Intensity 6 Pain Scale Used 0-10 Pain Scale Intake and Output: Intake & Output 04/07/25 04/08/25 04/09/25 04/10/25 11:59 11:59 11:59 11:59 Intake Total 3117 2955 Output Total 4179 2400 Balance -1058 555 Weight 101.1 kg 101.1 kg Lab Results: Lab Results-Last 24 Hours 04/09/25 04/09/25 04/09/25 Range/Units 06:15 06:15 07:39 WBC 9.1 H (4.23-9.07) x10^3/uL RBC 2.94 L (4.63-6.08) x10^6/uL Hgb 8.2 L (13.7-17.5) g/dL Hct 25.4 L (40.1-51.0) % MCV 86.4 (79.0-92.2) fL MCH 27.9 (25.7-32.2) pg MCHC 32.3 (32.3-36.5) g/dL RDW 15.9 H (11.6-14.4) % Plt Count 255 (163-337) x10^3/uL MPV 8.7 L (9.4-12.4) fL Gran % 53.8 (34.0-67.9) % Immature Gran % (Auto) 1.2 H (0.001-0.429) % Nucleat RBC Rel Count 0.0 (0.00-0.2) % Eos # (Auto) 0.23 (0.04-0.54) x10^3/uL Immature Gran # (Auto) 0.11 H (0.001-0.031) x10^3u/L Absolute Lymphs (auto) 3.07 (1.32-3.57) x10^3/uL Absolute Monos (auto) 0.75 (0.30-0.82) x10^3/uL Absolute Nucleated RBC 0.00 (0.00-0.012) x10^3u/L Lymphocytes % 33.8 (21.8-53.1) % Monocytes % 8.3 (5.3-12.2) % Eosinophils % 2.5 (0.8-7.0) % Basophils % 0.4 (0.2-1.2) % Absolute Granulocytes 4.88 (1.78-5.38) x10^3/uL Basophils # 0.04 (0.01-0.08) x10^3/uL Sodium 141 D (135-145) mmol/L Potassium 4.5 (3.5-5.1) mmol/L Chloride 110 H (98-107) mmol/L Carbon Dioxide 24 (22-30) mmol/L Anion Gap 11.1 (5-15) MEQ/L BUN 25 H (9-20) mg/dL Creatinine 0.80 (0.66-1.25) mg/dL Estimated GFR 91.2 ML/MIN Glucose 123 H (74-106) mg/dL POC Glucometer 110 H (74 to 106) mg/dL Calcium 9.0 (8.4-10.2) mg/dL Total Bilirubin 0.40 (0.2-1.3) mg/dL AST 17 (17-59) U/L ALT 13 (0-50) U/L Alkaline Phosphatase 102 (38-126) U/L NT-Pro-B Natriuret Pep 792 (<300) pg/mL Serum Total Protein 6.4 (6.3-8.2) g/dL Albumin 3.1 L (3.5-5.0) g/dL 04/09/25 04/09/25 04/09/25 Range/Units 11:02 16:20 21:51 WBC (4.23-9.07) x10^3/uL RBC (4.63-6.08) x10^6/uL Hgb (13.7-17.5) g/dL Hct (40.1-51.0) % MCV (79.0-92.2) fL MCH (25.7-32.2) pg MCHC (32.3-36.5) g/dL RDW (11.6-14.4) % Plt Count (163-337) x10^3/uL MPV (9.4-12.4) fL Gran % (34.0-67.9) % Immature Gran % (Auto) (0.001-0.429) % Nucleat RBC Rel Count (0.00-0.2) % Eos # (Auto) (0.04-0.54) x10^3/uL Immature Gran # (Auto) (0.001-0.031) x10^3u/L Absolute Lymphs (auto) (1.32-3.57) x10^3/uL Absolute Monos (auto) (0.30-0.82) x10^3/uL Absolute Nucleated RBC (0.00-0.012) x10^3u/L Lymphocytes % (21.8-53.1) % Monocytes % (5.3-12.2) % Eosinophils % (0.8-7.0) % Basophils % (0.2-1.2) % Absolute Granulocytes (1.78-5.38) x10^3/uL Basophils # (0.01-0.08) x10^3/uL Sodium (135-145) mmol/L Potassium (3.5-5.1) mmol/L Chloride (98-107) mmol/L Carbon Dioxide (22-30) mmol/L Anion Gap (5-15) MEQ/L BUN (9-20) mg/dL Creatinine (0.66-1.25) mg/dL Estimated GFR ML/MIN Glucose (74-106) mg/dL POC Glucometer 183 H 186 H 113 H (74 to 106) mg/dL Calcium (8.4-10.2) mg/dL Total Bilirubin (0.2-1.3) mg/dL AST (17-59) U/L ALT (0-50) U/L Alkaline Phosphatase (38-126) U/L NT-Pro-B Natriuret Pep (<300) pg/mL Serum Total Protein (6.3-8.2) g/dL Albumin (3.5-5.0) g/dL Radiology Exams: Radiology Procedures Category Date Time Status CHEST 1 VIEW (PORTABLE) Stat Exams 04/08/25 13:38 Completed KNEE (3 VIEWS) Urgent Exams 04/08/25 15:45 Completed Medications: Medications Generic Name Dose Route Start Last Admin Trade Name Freq PRN Reason Stop Dose Admin Acetaminophen 650 mg 04/08/25 13:10 Acetaminophen 325 Mg Tablet PO 05/08/25 13:09 Q4H PRN PRN PAIN, FEVER, HEADACHE Hydrocodone Bitart/Acetaminophen 1 tablet 04/09/25 10:26 04/10/25 03:39 Hydrocodone/Acetamin 10-325 Mg Tablet PO 04/14/25 10:25 1 tablet Q4H PRN PRN Administration PAIN Carbidopa/Levodopa 1 tab 04/09/25 15:00 04/09/25 21:55 Carbidopa/Levodopa 25/100 1 Tab Tablet PO 05/09/25 14:59 1 tab TID CONI Administration Ezetimibe 10 mg 04/09/25 22:00 04/09/25 21:54 Ezetimibe 10 Mg Tab PO 05/09/25 21:59 10 mg QHS CONI Administration Folic Acid 1 mg 04/10/25 10:00 Folic Acid 1 Mg Tablet PO 05/10/25 09:59 DAILY CONI Sodium Chloride 1,000 mls @ 100 mls/hr 04/08/25 13:10 04/10/25 00:03 Sodium Chloride 0.9% 1000 Ml IV 05/08/25 13:09 100 mls/hr .Q10H CONI Administration Levofloxacin/Dextrose 750 mg in 150 mls @ 100 mls/hr 04/09/25 10:00 04/09/25 10:07 Levofloxacin 750mg/150ml D5w IV 05/09/25 09:59 100 mls/hr Q24H10 CONI Administration Norepinephrine/Dextrose 8 mg in 250 mls @ 15 mls/hr 04/08/25 17:58 04/10/25 04:48 Norepinephrine 8 Mg/250 Ml-D5w IV 05/08/25 17:57 4 mcg/min .[id number] PRN 7.5 mls/hr HYPOTENSION Titration Protocol 8 MCG/MIN Insulin Human Lispro 0 unit 04/08/25 13:38 Insulin Lispro 1 Unit SQ 05/08/25 13:37 UD PRN HYPERGLYCEMIA Metoprolol Tartrate 25 mg 04/09/25 22:00 04/09/25 21:55 Metoprolol Tartrate 25 Mg Tab PO 05/09/25 21:59 Not Given BID CONI Ondansetron HCl 4 mg 04/08/25 13:38 Ondansetron Hcl 4 Mg/2 Ml Vial IV 05/08/25 13:37 Q6H PRN PRN NAUSEA/VOMITING Pantoprazole Sodium 40 mg 04/08/25 14:00 04/09/25 10:07 Protonix (Pantoprazole) 40 Mg Tablet PO 05/08/25 13:59 40 mg DAILY CONI Administration Potassium Chloride 10 meq 04/10/25 10:00 Potassium Chloride Tab 10 Meq Tab PO 05/10/25 09:59 DAILY CONI Simvastatin 40 mg 04/09/25 22:00 04/09/25 21:55 Simvastatin 20 Mg Tablet PO 05/09/25 21:59 40 mg QHS CONI Administration Discontinued Medications Generic Name Dose Route Start Last Admin Trade Name Freq PRN Reason Stop Dose Admin Hydrocodone Bitart/Acetaminophen 1 tab 04/08/25 13:38 04/09/25 08:36 Hydrocodone/Apap 5/325 1 Tab Tablet PO 04/13/25 13:37 1 tab Q4H PRN PRN Administration PAIN Albuterol/Ipratropium 3 ml 04/08/25 13:38 Ipratropium/Albuterol Sulfate 3 Ml Ampul.Neb IH 05/08/25 13:37 Q6H PRN PRN SHORTNESS OF BREATH/WHEEZING Sodium Chloride 1,000 mls @ 250 mls/hr 04/08/25 09:15 04/08/25 10:38 Sodium Chloride 0.9% 1000 Ml IV 05/08/25 09:14 250 mls/hr .Q4H CONI Administration Ceftriaxone Sodium 1 gm in 100 mls @ 200 mls/hr 04/08/25 10:59 04/08/25 11:42 Rocephin 1 Gm / 100 Ml Nacl IV 04/08/25 11:28 Infused STAT ONE Infusion Ceftriaxone Sodium Confirm 04/08/25 11:02 Rocephin 1 Gm / 100 Ml Nacl Administered 04/08/25 11:03 Dose 1 gm in 100 mls @ ud IV .STK-MED ONE Levofloxacin/Dextrose 500 mg in 100 mls @ 100 mls/hr 04/08/25 11:39 04/08/25 11:45 Levofloxacin 500mg/100ml D5w IV 04/08/25 12:38 100 mls/hr STAT STA 100 mls/hr Administration Levofloxacin/Dextrose Confirm 04/08/25 11:44 Levofloxacin 500mg/100ml D5w Administered 04/08/25 11:45 Dose 500 mg in 100 mls @ ud IV .STK-MED ONE Sodium Chloride 1,000 mls @ 999 mls/hr 04/08/25 11:49 04/08/25 11:53 Sodium Chloride 0.9% 1000 Ml IV 04/08/25 12:49 999 mls/hr .Q1H1M STA Administration Norepinephrine/Dextrose 8 mg in 250 mls @ 15 mls/hr 04/08/25 13:10 Norepinephrine 8 Mg/250 Ml-D5w IV 05/08/25 13:09 .[id number] PRN HYPOTENSION Protocol 8 MCG/MIN Insulin Human Regular 0 unit 04/08/25 13:10 Insulin Regular, Human 1 Unit SQ 05/08/25 13:09 UD PRN HYPERGLYCEMIA Miscellaneous Information 1 each 04/09/25 12:00 Medication Intervention 1 Each Each 05/09/25 11:59 .RN TO CHECK CONI Assessment/Plan (1) Sepsis Current Visit: Yes Status: Acute Assessment & Plan: -Meets Sepsis-3 criteria: suspected infection + organ dysfunction (hypotension requiring fluids). -BP improved with 1L fluid bolus IVF; vasopressors not required consider if map < 65 now at 111/90 -Broad-spectrum antibiotics initiated (Levaquin). - WBC, CMP, lactate, renal function reviewed -Most likely multifactorial with UTI/chronic wound - Coccygeal wound cultures from 01/07/25 grew Pseudomonas aeruginosa and Morganella morganii, both pansensitive - A urine culture from 01/02/25 showed Pseudomonas aeruginosa, treated with levofloxacin -Will start levaquin and follow blood and urine cultures -CXR -Tele 04/09: -WBC reviewed at 9.1 -Levophed running at 3.75ml/hr will titrate as appropriate -Wound/urine cultures pending -Continue levaquin pending cultures -CXR reviewed and negative for acute findings -CMP reviewed and unremarkable 04/10: -Wound culture with staph and pseudomonas- not sensitive to Levofloxacin- Vanc/Cefepime started -WBC reviewed at 9.7 -Patient remains on levophed drip at 4mcg/min- titrate as appropriate -Continue IVF -Tele -Wound vac to be placed 04/11 -MRI ordered for 04/11 (2) Urinary tract infection Current Visit: Yes Status: Acute Assessment & Plan: -See sepsis above Code(s): N39.0 - URINARY TRACT INFECTION, SITE NOT SPECIFIED (3) Hypotension Current Visit: Yes Status: Acute Assessment & Plan: -Likely related to early sepsis -Improved with 1L IV fluids; continue fluid support as needed -Hold home antihypertensives until stable - patient states he did not take BP meds today -Monitor blood pressure and MAP; daily CMP/I&O monitoring 04/09: -Levophed drip initiated now titrated to 3.75mls/hr- titrate as appropriate per protocol 04/10: -Levophed drip now at 4mcg/min-titrate per protocol -continue IVF Code(s): I95.9 - HYPOTENSION, UNSPECIFIED (4) CAD (coronary artery disease) Current Visit: Yes Status: Acute Assessment & Plan: -1 stent placed -continue home meds -EKG without ischemic changes; no chest pain Code(s): I25.10 - ATHSCL HEART DISEASE OF [place] CORONARY ARTERY W/O ANG PCTRS (5) 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 Current Visit: Yes Status: Acute Assessment & Plan: -Hgb 8.3, stable and consistent with prior lab review -Monitor CBC -No transfusion indicated at this time 04/09: -Hgb stable at 8.2 04/10: -Hgb stable at 8.1 Code(s): D50.0 - IRON DEFICIENCY ANEMIA SECONDARY TO BLOOD LOSS (CHRONIC) (6) Colostomy care Current Visit: Yes Status: Acute Assessment & Plan: -No acute complications noted -Monitor stoma and skin integrity -Routine ostomy care Code(s): Z43.3 - ENCOUNTER FOR ATTENTION TO COLOSTOMY (7) Parkinson disease Current Visit: Yes Status: Acute Assessment & Plan: -continue home regimen ### Right Knee Pain -right knee xray reviewed from 04/08 demonstrating mild to moderate arthritis in all compartments, worst in the medial side. There's a small, nonspecific joint effusion, minor bone spurs below the kneecap, a tiny fabella, and moderate vascular calcifications. No other issues were seen -PT eval for Strengthening the quadriceps and improving joint flexibility and stability - Consider a knee brace or offloading brace and ortho consult if pain persists -Apply ice for swelling or heat for stiffness as needed -Pain control -Consider ortho eval Daniel when available for possible steroid injection -lidocaine patch Code(s): G20.A1 - PARKINSON'S DIS W/O DYSKINESIA, W/O MENTION OF FLUCTUATIONS (8) Generalized weakness Current Visit: No Status: Acute Assessment & Plan: -PT/OT -Most likely secondary to infection -may need rehab on discharge -prior level of functioning - ambulates with walker - [facility] nurse for 12 hours daily 04/09: -Per nursing staff, the home health agency has reported that the patient may be too clinically complex to continue receiving current services. Case management (CM) has been consulted to reassess [facility] eligibility and explore appropriate discharge planning options Code(s): R53.1 - WEAKNESS (9) Decubitus ulcer Current Visit: No Status: Chronic Qualifiers: Pressure injury location: sacral region Pressure injury stage: unstageable Qualified Code(s): L89.150 - Pressure ulcer of sacral region, unstageable Assessment & Plan: -Stable chronic wound; prior cultures positive for Pseudomonas and Morganella - cultures taken/pictures in chart -OP wound care weekly at the wound center -Wound care consult to replace wound vac- [facility] -Monitor for signs of local or systemic infection 04/09: -Wound vac to be placed 04/11/25 -MRI when available -General surgery consult evaluation for possible debridement -Wound cultures as stated above- abx changed to vanc/cefepime Code(s): L89.90 - PRESSURE ULCER OF UNSPECIFIED SITE, UNSPECIFIED STAGE (10) Parkinson disease Current Visit: No Status: Chronic Assessment & Plan: -Continue home meds Code(s): G20.A1 - PARKINSON'S DIS W/O DYSKINESIA, W/O MENTION OF FLUCTUATIONS (11) Type II diabetes mellitus Current Visit: No Status: Chronic Qualifiers: Diabetes mellitus rat exterminator insulin use: without halfway use Diabetes mellitus complication status: without complication Qualified Code(s): E11.9 - Type 2 diabetes mellitus without complications Assessment & Plan: -ADA diet -A1c 5.77 -SSI VTE: SCD PPI: protonix Dispo: 2-3 days ? rehab on dc Code status: SCO (2) Urinary tract infection Current Visit: Yes Status: Acute Code(s): N39.0 - URINARY TRACT INFECTION, SITE NOT SPECIFIED (3) Hypotension Current Visit: Yes Status: Acute Code(s): I95.9 - HYPOTENSION, UNSPECIFIED (4) CAD (coronary artery disease) Current Visit: Yes Status: Acute Code(s): I25.10 - ATHSCL HEART DISEASE OF [place] CORONARY ARTERY W/O ANG PCTRS (5) 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 Current Visit: Yes Status: Acute Code(s): D50.0 - IRON DEFICIENCY ANEMIA SECONDARY TO BLOOD LOSS (CHRONIC) (6) Colostomy care Current Visit: Yes Status: Acute Code(s): Z43.3 - ENCOUNTER FOR ATTENTION TO COLOSTOMY (7) Parkinson disease Current Visit: Yes Status: Acute Code(s): G20.A1 - PARKINSON'S DIS W/O DYSKINESIA, W/O MENTION OF FLUCTUATIONS (8) Generalized weakness Current Visit: No Status: Acute Code(s): R53.1 - WEAKNESS (9) Decubitus ulcer Current Visit: No Status: Chronic Qualifiers: Pressure injury location: sacral region Pressure injury stage: unstageable Qualified Code(s): L89.150 - Pressure ulcer of sacral region, unstageable Code(s): L89.90 - PRESSURE ULCER OF UNSPECIFIED SITE, UNSPECIFIED STAGE (10) Parkinson disease Current Visit: No Status: Chronic Code(s): G20.A1 - PARKINSON'S DIS W/O DYSKINESIA, W/O MENTION OF FLUCTUATIONS (11) Type II diabetes mellitus Current Visit: No Status: Chronic Qualifiers: Diabetes mellitus halfway insulin use: without rat exterminator use Diabetes mellitus complication status: without complication Qualified Code(s): E11.9 - Type 2 diabetes mellitus without complications (12) Right knee pain Current Visit: Yes Status: Acute Code(s): M25.561 - PAIN IN RIGHT KNEE
[2025-04-10 06:29] LABS: BASOPHIL % 0.4 % (0.2-1.2); Basophil (Absolute #) 0.04 x10^3/uL (0.01-0.08); Eosinophil (Absolute #) 0.36 x10^3/uL (0.04-0.54); Hematocrit 26.0 % (40.1-51.0); Hemoglobin 8.1 g/dL (13.7-17.5); IMMATURE GRAN # 0.09 x10^3u/L (0.001-0.031); IMMATURE GRAN % 0.9 % (0.001-0.429); Lymphocyte (Absolute #) 3.77 x10^3/uL (1.32-3.57); Mean Corpuscular Hemoglobin 27.4 pg (25.7-32.2); Mean Corpuscular Hgb Concent. 31.2 g/dL (32.3-36.5); Monocyte (Absolute #) 0.89 x10^3/uL (0.30-0.82); NUCLEATED RBC # 0.00 x10^3u/L (0.00-0.012); NUCLEATED RBC % 0.0 % (0.00-0.2); Platelet Count 235 x10^3/uL (163-337); Red Blood Count 2.96 x10^6/uL (4.63-6.08); White Blood Count 9.7 x10^3/uL (4.23-9.07)
[2025-04-10 06:54] LABS: Calcium 8.9 mg/dL (8.4-10.2); Carbon Dioxide 24 mmol/L (22-30); Creatinine 1 0.76 mg/dL (0.66-1.25); EST GLOMERULAR FILTRATION RATE 92.6 ML/MIN; Glucose 121 mg/dL (74-106); Potassium 4.0 mmol/L (3.5-5.1); SGOT/AST 15 U/L (17-59); Total Protein 6.1 g/dL (6.3-8.2)
[2025-04-10 06:55] LABS: SGPT/ALT < 4 U/L (0-50)
[2025-04-10] MEDS: FOLATE 1 MG PO SCH (08:24)
[2025-04-10] MEDS: Klor Con PO SCH (08:24)
[2025-04-10] MEDS: Maxipime 2 GM** 2 G in Sodium Chloride 0.9% 100 ML IV SCH (10:35)
[2025-04-10] MEDS: VANCOMYCIN 1.5 GRAM/300 ML BAG 1.5 GM/300 ML PIGGYBACK IV SCH (12:17)
[2025-04-10] MEDS: CLARITIN 10 MG PO SCH (12:49)
[2025-04-10] MEDS: Lidoderm Patch 5% TOP SCH (12:51)
[2025-04-10] MEDS: Benadryl Itch Stopping Crm TP PRN ×2 (15:11→21:32)
[2025-04-10] MEDS: PHARMACY DOSING REQUEST MC ONE (19:05)
[2025-04-10] MEDS: REMOVE PATCH REMINDER TOP SCH (21:15)
[2025-04-10] MEDS: MELATONIN PO PRN (23:52)
[2025-04-11 05:16] LABS: BASOPHIL % 0.4 % (0.2-1.2); Basophil (Absolute #) 0.03 x10^3/uL (0.01-0.08); Eosinophil (Absolute #) 0.47 x10^3/uL (0.04-0.54); Hematocrit 24.3 % (40.1-51.0); Hemoglobin 7.7 g/dL (13.7-17.5); IMMATURE GRAN # 0.09 x10^3u/L (0.001-0.031); IMMATURE GRAN % 1.1 % (0.001-0.429); Lymphocyte (Absolute #) 2.87 x10^3/uL (1.32-3.57); Mean Corpuscular Hemoglobin 27.8 pg (25.7-32.2); Mean Corpuscular Hgb Concent. 31.7 g/dL (32.3-36.5); Monocyte (Absolute #) 0.75 x10^3/uL (0.30-0.82); NUCLEATED RBC # 0.00 x10^3u/L (0.00-0.012); NUCLEATED RBC % 0.0 % (0.00-0.2); Platelet Count 172 x10^3/uL (163-337); Red Blood Count 2.77 x10^6/uL (4.63-6.08); White Blood Count 8.4 x10^3/uL (4.23-9.07)
[2025-04-11 05:47] LABS: Calcium 8.6 mg/dL (8.4-10.2); Carbon Dioxide 22 mmol/L (22-30); Creatinine 1 0.72 mg/dL (0.66-1.25); EST GLOMERULAR FILTRATION RATE 94.1 ML/MIN; Glucose 120 mg/dL (74-106); Potassium 4.2 mmol/L (3.5-5.1); SGOT/AST 15 U/L (17-59); Total Protein 5.6 g/dL (6.3-8.2)
[2025-04-11 06:07] LABS: SGPT/ALT < 4 U/L (0-50)
[2025-04-11] MEDS: TYLENOL 325 MG PO PRN (12:15)
--- NOTE | 2025-04-11 12:39 | PCM.NOTE ---
Date and Time: 04/11/25 1232 Subjective Assessment: Pt is a 79-year-old male with a complex medical history including Parkinsons disease, hypertension, type 2 diabetes mellitus, coronary artery disease, chronic non-healing sacral decubitus ulcer, colostomy, and chronic Wadsworth catheter presented to the ED on 04/08/25 with acute onset hypotension, dizziness, and generalized weakness. Symptoms began while he was attempting to bathe with assistance from his home health nurse, who noted a BP of 66/39. He reported similar past episodes related to wound infections. He had recently completed a course of antibiotics at [facility]. On arrival, he was hypotensive but responded to a 1L IV fluid bolus. He was started on ceftriaxone and levofloxacin, and admitted for management of sepsis secondary to suspected UTI and chronic wound infection. Lab findings included mild leukocytosis, anemia, and a UA positive for leukocyte esterase. EKG showed normal sinus rhythm without acute changes. On 04/09, the patient reported improvement in weakness and dizziness. He remained afebrile and on norepinephrine infusion, titrated to maintain MAP. [facility] agency raised concerns regarding the patients complexity, prompting case management to evaluate alternative discharge plans. The patient expressed preference to remain home with support. Physical therapy evaluated his sacral wound, and wet-to-dry dressings were continued due to lack of VAC supplies. On 04/10, the patient continued to endorse sacral pain (8/10) and chronic bilateral knee pain. Wound cultures grew Staphylococcus aureus and Pseudomonas aeruginosa resistant to levofloxacin, prompting a switch to vancomycin and cefepime. He remained on vasopressor support and lab values were stable. General surgery was consulted for evaluation of the wound, and MRI was recommended but not yet available. On 04/11, the patient was successfully weaned off vasopressors, and an MRI was planned for the day. Wound VAC was placed by PT, revealing bone exposure. The patient was noted by staff to be verbally abusive and demanding. He agreed to rehab placement at discharge. Blood and urine cultures remained negative. It was recommended that in future admissions, the patient be directly transferred to [facility], where his infectious disease and wound care providers are located, for continuity and appropriate management. Critical care services were provided for septic shock secondary to wound infection, including vasopressor management, fluid resuscitation, broad-spectrum antibiotics, hemodynamic monitoring, coordination with consultants, and medical decision-making. A total of 45 minutes of critical care time was spent in direct patient management. - Review of Systems Constitutional: Weakness, No Fever, No Chills Eyes: No Symptoms Ears, Nose, & Throat: No Symptoms Respiratory: No Cough, No Short Of Breath Cardiac: No Chest Pain, No Edema, No Syncope Abdominal/Gastrointestinal: No Abdominal Pain, No Nausea, No Vomiting, No Diarrhea Genitourinary Symptoms: No Dysuria Musculoskeletal: Joint Pain (right knee pain), No Back Pain, No Neck Pain Skin: Skin Lesions (coccyx wound), No Rash Neurological: No Dizziness, No Focal Weakness, No Sensory Changes Psychological: No Symptoms Endocrine: No Symptoms Hematologic/Lymphatic: No Symptoms Immunological/Allergic: No Symptoms Objective Exam General Appearance: no apparent distress, alert Neurologic Exam: alert, oriented x 3, nml cerebellar function, sensation nml, agitation, No motor deficits Skin Exam: normal color, warm, dry, other (coccyx wound) Wound Assessment: Skin/Wound Assessment Wound/Incision Assessment Start: 04/08/25 14:07 Text: Status: Active Freq: Q6H Protocol: Document 04/11/25 08:20 JV (Rec: 04/11/25 10:42 JV [id number]) Wound/Incision Assessment Sacrum Wound Assessment Shift Assessment Wound Type Pressure Ulcer Wound Stage Stage IV Dressing Status Dry & Intact Drainage Amount Minimal Drainage Description Serosanguineous General Appearance Draining Surrounding Tissue [place] Comment Drsg removed and wound vac applied by Zandra, physical therapy Wound Photo Photo Taken No Eye Exam: PERRL, EOMI, eyes nml inspection Ears, Nose, Throat Exam: normal ENT inspection, pharynx normal, moist mucous membranes Neck Exam: normal inspection, non-tender, supple, full range of motion Respiratory Exam: normal breath sounds, lungs clear, No respiratory distress Cardiovascular Exam: regular rate/rhythm, normal heart sounds Gastrointestinal/Abdomen Exam: soft, No tenderness, No mass Extremity Exam: normal inspection, normal range of motion, tenderness (right knee) Back Exam: normal inspection, normal range of motion, No CVA tenderness, No vertebral tenderness Male Genitalia Exam: deferred Rectal Exam: deferred Objective Data Vital Signs: Vital Signs - 24 hr Temp Pulse Resp BP Pulse Ox 04/11/25 11:30 73 19 107/55 04/11/25 11:00 84 10 L 106/58 04/11/25 10:30 90 16 120/69 04/11/25 10:00 17 142/77 96 04/11/25 09:30 89 16 101/53 04/11/25 09:01 91 H 13 106/57 04/11/25 08:44 88 14 91/53 97 04/11/25 08:40 195 H 15 96 04/11/25 08:38 97.9 F 90 14 96 04/11/25 08:15 89 04/11/25 08:00 78 17 143/71 98 04/11/25 07:56 76 12 116/49 99 04/11/25 07:30 60 14 79/42 100 04/11/25 07:00 71 14 91/45 100 04/11/25 06:30 69 12 95/49 96 04/11/25 06:00 72 14 108/47 97 04/11/25 05:30 64 20 122/50 97 04/11/25 05:16 70 13 88/49 97 04/11/25 05:00 76 17 88/45 96 04/11/25 04:44 75 13 87/45 97 04/11/25 04:30 76 14 85/44 97 04/11/25 04:00 97.1 F 77 15 128/56 96 04/11/25 03:30 79 14 120/52 96 04/11/25 03:00 80 17 111/51 96 04/11/25 02:30 80 14 111/50 97 04/11/25 02:00 81 15 112/50 96 04/11/25 01:30 79 15 111/50 96 04/11/25 01:00 80 16 99/44 96 04/11/25 00:31 75 18 123/58 97 04/11/25 00:01 89 04/11/25 00:00 98.8 F 89 16 151/65 94 L 04/10/25 23:30 88 15 133/59 94 L 04/10/25 23:01 88 17 120/58 95 04/10/25 22:30 93 H 18 119/68 96 04/10/25 22:00 101 H 16 147/67 95 04/10/25 21:31 88 16 118/54 95 04/10/25 21:01 103 H 18 103/61 95 04/10/25 20:30 97 H 19 141/70 95 04/10/25 20:02 99.7 F 98 H 17 131/55 94 L 04/10/25 20:00 98 H 04/10/25 19:30 106 H 19 139/87 94 L 04/10/25 19:00 97 H 18 122/47 98 04/10/25 18:30 86 18 138/53 97 04/10/25 18:00 90 17 131/62 95 04/10/25 17:30 91 H 18 138/80 96 04/10/25 17:00 92 H 17 132/65 04/10/25 16:30 91 H 14 134/69 04/10/25 16:00 99.6 F 93 H 16 105/59 89 L 04/10/25 15:47 98 H 19 120/73 85 L 04/10/25 15:31 92 H 18 94 L 04/10/25 15:01 20 110/56 95 04/10/25 14:31 92 H 18 127/87 04/10/25 14:00 98 H 19 102/39 04/10/25 13:31 82 18 105/48 95 04/10/25 13:30 82 16 96 04/10/25 13:02 99 H 16 97 Pain Assessment - Last Documented Pain Intensity 8 Pain Scale Used 0-10 Pain Scale Intake and Output: Intake & Output 04/09/25 04/10/25 04/11/25 04/12/25 11:59 11:59 11:59 11:59 Intake Total 3117 4929 4905 Output Total 4173 3250 3175 Balance -1058 1679 1730 Weight 101.1 kg 96.1 kg 95.3 kg Lab Results: Lab Results-Last 24 Hours 04/10/25 04/10/25 04/11/25 Range/Units 16:10 21:56 05:10 WBC 8.4 (4.23-9.07) x10^3/uL RBC 2.77 L (4.63-6.08) x10^6/uL Hgb 7.7 L (13.7-17.5) g/dL Hct 24.3 L (40.1-51.0) % MCV 87.7 (79.0-92.2) fL MCH 27.8 (25.7-32.2) pg MCHC 31.7 L (32.3-36.5) g/dL RDW 15.6 H (11.6-14.4) % Plt Count 172 (163-337) x10^3/uL MPV 8.7 L (9.4-12.4) fL Gran % 49.8 (34.0-67.9) % Immature Gran % (Auto) 1.1 H (0.001-0.429) % Nucleat RBC Rel Count 0.0 (0.00-0.2) % Eos # (Auto) 0.47 (0.04-0.54) x10^3/uL Immature Gran # (Auto) 0.09 H (0.001-0.031) x10^3u/L Absolute Lymphs (auto) 2.87 (1.32-3.57) x10^3/uL Absolute Monos (auto) 0.75 (0.30-0.82) x10^3/uL Absolute Nucleated RBC 0.00 (0.00-0.012) x10^3u/L Lymphocytes % 34.2 (21.8-53.1) % Monocytes % 8.9 (5.3-12.2) % Eosinophils % 5.6 (0.8-7.0) % Basophils % 0.4 (0.2-1.2) % Absolute Granulocytes 4.17 (1.78-5.38) x10^3/uL Basophils # 0.03 (0.01-0.08) x10^3/uL Sodium (135-145) mmol/L Potassium (3.5-5.1) mmol/L Chloride (98-107) mmol/L Carbon Dioxide (22-30) mmol/L Anion Gap (5-15) MEQ/L BUN (9-20) mg/dL Creatinine (0.66-1.25) mg/dL Estimated GFR ML/MIN Glucose (74-106) mg/dL POC Glucometer 139 H 146 H (74 to 106) mg/dL Calcium (8.4-10.2) mg/dL Total Bilirubin (0.2-1.3) mg/dL AST (17-59) U/L ALT (0-50) U/L Alkaline Phosphatase (38-126) U/L Serum Total Protein (6.3-8.2) g/dL Albumin (3.5-5.0) g/dL 04/11/25 04/11/25 04/11/25 Range/Units 05:10 07:30 11:26 WBC (4.23-9.07) x10^3/uL RBC (4.63-6.08) x10^6/uL Hgb (13.7-17.5) g/dL Hct (40.1-51.0) % MCV (79.0-92.2) fL MCH (25.7-32.2) pg MCHC (32.3-36.5) g/dL RDW (11.6-14.4) % Plt Count (163-337) x10^3/uL MPV (9.4-12.4) fL Gran % (34.0-67.9) % Immature Gran % (Auto) (0.001-0.429) % Nucleat RBC Rel Count (0.00-0.2) % Eos # (Auto) (0.04-0.54) x10^3/uL Immature Gran # (Auto) (0.001-0.031) x10^3u/L Absolute Lymphs (auto) (1.32-3.57) x10^3/uL Absolute Monos (auto) (0.30-0.82) x10^3/uL Absolute Nucleated RBC (0.00-0.012) x10^3u/L Lymphocytes % (21.8-53.1) % Monocytes % (5.3-12.2) % Eosinophils % (0.8-7.0) % Basophils % (0.2-1.2) % Absolute Granulocytes (1.78-5.38) x10^3/uL Basophils # (0.01-0.08) x10^3/uL Sodium 135 (135-145) mmol/L Potassium 4.2 (3.5-5.1) mmol/L Chloride 108 H (98-107) mmol/L Carbon Dioxide 22 (22-30) mmol/L Anion Gap 8.4 (5-15) MEQ/L BUN 12 (9-20) mg/dL Creatinine 0.72 (0.66-1.25) mg/dL Estimated GFR 94.1 ML/MIN Glucose 120 H (74-106) mg/dL POC Glucometer 109 H 149 H (74 to 106) mg/dL Calcium 8.6 (8.4-10.2) mg/dL Total Bilirubin 0.40 (0.2-1.3) mg/dL AST 15 L (17-59) U/L ALT < 4 (0-50) U/L Alkaline Phosphatase 78 (38-126) U/L Serum Total Protein 5.6 L (6.3-8.2) g/dL Albumin 2.7 L (3.5-5.0) g/dL Radiology Exams: Radiology Procedures Category Date Time Status MRI PELVIS W & W/O CONTRAST [MRI] Routine Exams 04/11/25 08:00 Ordered Medications: Medications Generic Name Dose Route Start Last Admin Trade Name Freq PRN Reason Stop Dose Admin Acetaminophen 650 mg 04/08/25 13:10 04/11/25 12:15 Acetaminophen 325 Mg Tablet PO 05/08/25 13:09 650 mg Q4H PRN PRN Administration PAIN, FEVER, HEADACHE Hydrocodone Bitart/Acetaminophen 1 tablet 04/09/25 10:26 04/11/25 10:05 Hydrocodone/Acetamin 10-325 Mg Tablet PO 04/14/25 10:25 1 tablet Q4H PRN PRN Administration PAIN Carbidopa/Levodopa 1 tab 04/09/25 15:00 04/11/25 10:06 Carbidopa/Levodopa 25/100 1 Tab Tablet PO 05/09/25 14:59 1 tab TID CONI Administration Device 1 04/12/25 09:30 Therapuetic Drug Level Monitor Each IJ 04/12/25 09:31 1XONLY ONE Ezetimibe 10 mg 04/09/25 22:00 04/10/25 22:00 Ezetimibe 10 Mg Tab PO 05/09/25 21:59 10 mg QHS CONI Administration Folic Acid 1 mg 04/10/25 10:00 04/11/25 10:06 Folic Acid 1 Mg Tablet PO 05/10/25 09:59 1 mg DAILY CONI Administration Sodium Chloride 1,000 mls @ 100 mls/hr 04/08/25 13:10 04/11/25 12:15 Sodium Chloride 0.9% 1000 Ml IV 05/08/25 13:09 100 mls/hr .Q10H CONI Administration Norepinephrine/Dextrose 8 mg in 250 mls @ 15 mls/hr 04/08/25 17:58 04/11/25 10:51 Norepinephrine 8 Mg/250 Ml-D5w IV 05/08/25 17:57 0 mcg/min .[id number] PRN 0 mls/hr HYPOTENSION Titration Protocol 8 MCG/MIN Cefepime HCl 2 g/ Sodium 100 mls @ 200 mls/hr 04/10/25 10:00 04/11/25 10:06 Chloride IV 05/10/25 09:59 200 mls/hr Q12HT CONI Administration Vancomycin HCl 1.5 gm in 300 mls @ 150 mls/hr 04/10/25 10:00 04/11/25 12:15 Vancomycin 1.5 Gram/300 Ml Bag IV 05/10/25 09:59 150 mls/hr Q12HT CONI Administration Insulin Human Lispro 0 unit 04/08/25 13:38 Insulin Lispro 1 Unit SQ 05/08/25 13:37 UD PRN HYPERGLYCEMIA Lidocaine 1 patch 04/10/25 12:08 04/11/25 10:06 Lidocaine Hcl 1 Patch Patch TOP 05/10/25 12:07 1 patch DAILY CONI Administration Loratadine 10 mg 04/10/25 12:12 04/11/25 10:06 Loratadine 10 Mg Tablet PO 05/10/25 12:11 10 mg DAILY CONI Administration Melatonin 3 mg 04/10/25 19:28 04/10/25 23:52 Melatonin 3 Mg Tablet PO 05/10/25 19:27 3 mg HS PRN PRN Administration INSOMNIA Metoprolol Tartrate 25 mg 04/09/25 22:00 04/11/25 10:06 Metoprolol Tartrate 25 Mg Tab PO 05/09/25 21:59 25 mg BID CONI Administration Non-Formulary Medication 1 each 04/10/25 22:00 04/10/25 21:15 Remove Patch 1 Each TOP 05/10/25 21:59 1 each HS CONI Administration Ondansetron HCl 4 mg 04/08/25 13:38 Ondansetron Hcl 4 Mg/2 Ml Vial IV 05/08/25 13:37 Q6H PRN PRN NAUSEA/VOMITING Pantoprazole Sodium 40 mg 04/08/25 14:00 04/11/25 10:06 Protonix (Pantoprazole) 40 Mg Tablet PO 05/08/25 13:59 40 mg DAILY CONI Administration Potassium Chloride 10 meq 07/27/25 10:00 04/11/25 10:06 Potassium Chloride Tab 10 Meq Tab PO 05/10/25 09:59 10 meq DAILY CONI Administration Simvastatin 40 mg 04/09/25 22:00 04/10/25 21:59 Simvastatin 20 Mg Tablet PO 05/09/25 21:59 40 mg QHS CONI Administration Zinc Acetate/Diphenhydramine 0 gm 04/10/25 14:42 04/11/25 10:07 Diphenhydramine Hcl/Zinc Acet 28.3 Gm Cream TP 05/10/25 12:08 30 gm QID PRN PRN Administration ITCHING Discontinued Medications Generic Name Dose Route Start Last Admin Trade Name Freq PRN Reason Stop Dose Admin Hydrocodone Bitart/Acetaminophen 1 tab 04/08/25 13:38 04/09/25 08:36 Hydrocodone/Apap 5/325 1 Tab Tablet PO 04/13/25 13:37 1 tab Q4H PRN PRN Administration PAIN Albuterol/Ipratropium 3 ml 04/08/25 13:38 Ipratropium/Albuterol Sulfate 3 Ml Ampul.Neb IH 05/08/25 13:37 Q6H PRN PRN SHORTNESS OF BREATH/WHEEZING Sodium Chloride 1,000 mls @ 250 mls/hr 04/08/25 09:15 04/08/25 10:38 Sodium Chloride 0.9% 1000 Ml IV 05/08/25 09:14 250 mls/hr .Q4H CONI Administration Ceftriaxone Sodium 1 gm in 100 mls @ 200 mls/hr 04/08/25 10:59 04/08/25 11:42 Rocephin 1 Gm / 100 Ml Nacl IV 04/08/25 11:28 Infused STAT ONE Infusion Ceftriaxone Sodium Confirm 04/08/25 11:02 Rocephin 1 Gm / 100 Ml Nacl Administered 04/08/25 11:03 Dose 1 gm in 100 mls @ ud IV .STK-MED ONE Levofloxacin/Dextrose 500 mg in 100 mls @ 100 mls/hr 04/08/25 11:39 04/08/25 11:45 Levofloxacin 500mg/100ml D5w IV 04/08/25 12:38 100 mls/hr STAT STA 100 mls/hr Administration Levofloxacin/Dextrose Confirm 04/08/25 11:44 Levofloxacin 500mg/100ml D5w Administered 04/08/25 11:45 Dose 500 mg in 100 mls @ ud IV .STK-MED ONE Sodium Chloride 1,000 mls @ 999 mls/hr 04/08/25 11:49 04/08/25 11:53 Sodium Chloride 0.9% 1000 Ml IV 04/08/25 12:49 999 mls/hr .Q1H1M STA Administration Norepinephrine/Dextrose 8 mg in 250 mls @ 15 mls/hr 04/08/25 13:10 Norepinephrine 8 Mg/250 Ml-D5w IV 05/08/25 13:09 .[id number] PRN HYPOTENSION Protocol 8 MCG/MIN Levofloxacin/Dextrose 750 mg in 150 mls @ 100 mls/hr 04/09/25 10:00 04/09/25 10:07 Levofloxacin 750mg/150ml D5w IV 05/09/25 09:59 100 mls/hr Q24H10 CONI Administration Insulin Human Regular 0 unit 04/08/25 13:10 Insulin Regular, Human 1 Unit SQ 05/08/25 13:09 UD PRN HYPERGLYCEMIA Miscellaneous Information 1 each 04/09/25 12:00 Medication Intervention 1 Each Each 05/09/25 11:59 .RN TO CHECK CONI Morphine Sulfate 1 mg 04/11/25 11:23 Morphine Sulfate 2 Mg/Ml Inj IV 04/11/25 11:24 STAT ONE Non-Formulary Medication 1 each 04/10/25 09:01 04/10/25 19:05 Pharmacy Dosing Request 04/10/25 09:02 Not Given STAT ONE Zinc Acetate/Diphenhydramine 0.5 gm 04/10/25 12:09 04/10/25 15:11 Diphenhydramine Hcl/Zinc Acet 28.3 Gm Cream TP 05/10/25 12:08 0.5 gm QID PRN PRN Administration ITCHING Assessment/Plan (1) Sepsis Current Visit: Yes Status: Acute Assessment & Plan: -Meets Sepsis-3 criteria: suspected infection + organ dysfunction (hypotension requiring fluids). - 2:2 decub ulcer/wound- surgery consult - Weaned off Levophed this AM - Remains in ICU for now - CBC, CMP reviewed - UC, BC x2 negative - Wound culture + Staph and Pseudomonas - Continue IV antibiotics - MRI Pelvis today (2) Decubitus ulcer Current Visit: No Status: Chronic Qualifiers: Pressure injury location: sacral region Pressure injury stage: unstageable Qualified Code(s): L89.150 - Pressure ulcer of sacral region, unstageable Assessment & Plan: -Wound care consult to replace wound vac- pt brought wound vac/supplies with him- PT placed today - MRI today - GS consult - Wound culture + Staph and Pseudomonas - Continue IV antibiotics - BC x2 negative - CBC, CMP reviewed - Pt follows wound care and ID at [facility] - Pro stat 64 Code(s): L89.90 - PRESSURE ULCER OF UNSPECIFIED SITE, UNSPECIFIED STAGE (3) Hypotension Current Visit: Yes Status: Acute Assessment & Plan: - Levophed gtt weaned off - Monitor BP Code(s): I95.9 - HYPOTENSION, UNSPECIFIED (4) Generalized weakness Current Visit: No Status: Acute Assessment & Plan: - Pt agreeable to Rehab at D/C. 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 There's a small, nonspecific joint effusion, minor bone spurs below the kneecap, a tiny fabella, and moderate vascular calcifications. 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: without termite control technician use Diabetes mellitus complication status: without complication Qualified Code(s): E11.9 - Type 2 diabetes mellitus without complications Assessment & Plan: -ADA diet -A1c 5.77- controlled -SSI, accuchecks AC/HS (11) Acute UTI (urinary tract infection) Current Visit: No Status: Resolved Assessment & Plan: - UC negative - Pt came in with wadsworth to ER - 1st urine sample was from bag in ER and wadsworth was not changed - Wadsworth changed IP and new UC sent- this was negative - Pt does not have urosepsis- ruled out VTE: SCD PPI: Protonix Dispo: Pending placement Code status: SCO Next of KIN: Callie Talavera [phone] Evaluation and management of services time: > 45 minutes. Code(s): N39.0 - URINARY TRACT INFECTION, SITE NOT SPECIFIED
[2025-04-11] MEDS: MORPHINE SULFATE 2 MG INJ IV ONE (12:53)
--- NOTE | 2025-04-11 16:52 | PCM.DS ---
Discharge Summary Date of Admission: 04/08/25 12:37 Date of Discharge: 04/11/25 Admitting Physician: BEREKET FAJARDO MD Consults: Consults on Case 04/10/25 10:03 Consult Surgery ROUTINE Primary Care Provider: LENA DUGGAN VARUN Allergies Allergies No Known Drug Allergies Allergy (Verified 04/08/25 13:11) Hospital Summary - Hospital Course Hospital Course: Pt is a 79-year-old male with a complex medical history including Parkinsons disease, hypertension, type 2 diabetes mellitus, coronary artery disease, chronic non-healing sacral decubitus ulcer, colostomy, and chronic Wadsworth catheter presented to the ED on 04/08/25 with acute onset hypotension, dizziness, and generalized weakness. Symptoms began while he was attempting to bathe with assistance from his home health nurse, who noted a BP of 66/39. He reported similar past episodes related to wound infections. He had recently completed a course of antibiotics at [facility]. On arrival, he was hypotensive but responded to a 1L IV fluid bolus. He was started on ceftriaxone and levofloxacin, and admitted for management of sepsis secondary to suspected UTI and chronic wound infection. Lab findings included mild leukocytosis, anemia, and a UA positive for leukocyte esterase. EKG showed normal sinus rhythm without acute changes. On 04/09, the patient reported improvement in weakness and dizziness. He remained afebrile and on norepinephrine infusion, titrated to maintain MAP. [facility] agency raised concerns regarding the patients complexity, prompting case management to evaluate alternative discharge plans. The patient expressed preference to remain home with support. Physical therapy evaluated his sacral wound, and wet-to-dry dressings were continued due to lack of VAC supplies. On 04/10, the patient continued to endorse sacral pain (8/10) and chronic bilateral knee pain. Wound cultures grew Staphylococcus aureus and Pseudomonas aeruginosa resistant to levofloxacin, prompting a switch to vancomycin and cefepime. He remained on vasopressor support and lab values were stable. General surgery was consulted for evaluation of the wound, and MRI was recommended but not yet available. On 04/11, the patient was successfully weaned off vasopressors, and an MRI was planned for the day. Wound VAC was placed by PT, revealing bone exposure. The patient was noted by staff to be verbally abusive and demanding. He agreed to rehab placement at discharge. Blood and urine cultures remained negative. It was recommended that in future admissions, the patient be directly transferred to [facility], where his infectious disease and wound care providers are located, for continuity and appropriate management. *Pt unable to do MRI even with pain medication and refused. Pt back on levophed gtt. Pt to transfer to higher level of care for ID, wound care, and critical mgnt. Pt accepted at [facility]. Critical care services were provided for septic shock secondary to wound infection, including vasopressor management, fluid resuscitation, broad-spectrum antibiotics, hemodynamic monitoring, coordination with consultants, and medical decision-making. A total of 45 minutes of critical care time was spent in direct patient management. - Vitals & Intake/Output Vital Signs: Vital Signs Temperature 97.9 F 04/11/25 13:18 Pulse Rate 72 04/11/25 16:25 Respiratory Rate 16 04/11/25 16:07 Blood Pressure 108/58 04/11/25 16:07 O2 Sat by Pulse Oximetry 97 04/11/25 16:07 Intake & Output: Intake & Output 04/09/25 04/10/25 04/11/25 04/12/25 11:59 11:59 11:59 11:59 Intake Total 3117 4929 4905 820 Output Total 4175 3250 3175 Balance -1058 1679 1730 820 Weight 101.1 kg 96.1 kg 95.3 kg - Lab Result Diagrams: 04/11/25 05:10 04/11/25 05:10 Lab Results-Last 24 Hrs: Lab Results-Last 24 Hours 04/10/25 04/11/25 04/11/25 Range/Units 21:56 05:10 05:10 WBC 8.4 (4.23-9.07) x10^3/uL RBC 2.77 L (4.63-6.08) x10^6/uL Hgb 7.7 L (13.7-17.5) g/dL Hct 24.3 L (40.1-51.0) % MCV 87.7 (79.0-92.2) fL MCH 27.8 (25.7-32.2) pg MCHC 31.7 L (32.3-36.5) g/dL RDW 15.6 H (11.6-14.4) % Plt Count 172 (163-337) x10^3/uL MPV 8.7 L (9.4-12.4) fL Gran % 49.8 (34.0-67.9) % Immature Gran % (Auto) 1.1 H (0.001-0.429) % Nucleat RBC Rel Count 0.0 (0.00-0.2) % Eos # (Auto) 0.47 (0.04-0.54) x10^3/uL Immature Gran # (Auto) 0.09 H (0.001-0.031) x10^3u/L Absolute Lymphs (auto) 2.87 (1.32-3.57) x10^3/uL Absolute Monos (auto) 0.75 (0.30-0.82) x10^3/uL Absolute Nucleated RBC 0.00 (0.00-0.012) x10^3u/L Lymphocytes % 34.2 (21.8-53.1) % Monocytes % 8.9 (5.3-12.2) % Eosinophils % 5.6 (0.8-7.0) % Basophils % 0.4 (0.2-1.2) % Absolute Granulocytes 4.17 (1.78-5.38) x10^3/uL Basophils # 0.03 (0.01-0.08) x10^3/uL Sodium 135 (135-145) mmol/L Potassium 4.2 (3.5-5.1) mmol/L Chloride 108 H (98-107) mmol/L Carbon Dioxide 22 (22-30) mmol/L Anion Gap 8.4 (5-15) MEQ/L BUN 12 (9-20) mg/dL Creatinine 0.72 (0.66-1.25) mg/dL Estimated GFR 94.1 ML/MIN Glucose 120 H (74-106) mg/dL POC Glucometer 146 H (74 to 106) mg/dL Calcium 8.6 (8.4-10.2) mg/dL Total Bilirubin 0.40 (0.2-1.3) mg/dL AST 15 L (17-59) U/L ALT < 4 (0-50) U/L Alkaline Phosphatase 78 (38-126) U/L Serum Total Protein 5.6 L (6.3-8.2) g/dL Albumin 2.7 L (3.5-5.0) g/dL 04/11/25 04/11/25 04/11/25 Range/Units 07:30 11:26 16:15 WBC (4.23-9.07) x10^3/uL RBC (4.63-6.08) x10^6/uL Hgb (13.7-17.5) g/dL Hct (40.1-51.0) % MCV (79.0-92.2) fL MCH (25.7-32.2) pg MCHC (32.3-36.5) g/dL RDW (11.6-14.4) % Plt Count (163-337) x10^3/uL MPV (9.4-12.4) fL Gran % (34.0-67.9) % Immature Gran % (Auto) (0.001-0.429) % Nucleat RBC Rel Count (0.00-0.2) % Eos # (Auto) (0.04-0.54) x10^3/uL Immature Gran # (Auto) (0.001-0.031) x10^3u/L Absolute Lymphs (auto) (1.32-3.57) x10^3/uL Absolute Monos (auto) (0.30-0.82) x10^3/uL Absolute Nucleated RBC (0.00-0.012) x10^3u/L Lymphocytes % (21.8-53.1) % Monocytes % (5.3-12.2) % Eosinophils % (0.8-7.0) % Basophils % (0.2-1.2) % Absolute Granulocytes (1.78-5.38) x10^3/uL Basophils # (0.01-0.08) x10^3/uL Sodium (135-145) mmol/L Potassium (3.5-5.1) mmol/L Chloride (98-107) mmol/L Carbon Dioxide (22-30) mmol/L Anion Gap (5-15) MEQ/L BUN (9-20) mg/dL Creatinine (0.66-1.25) mg/dL Estimated GFR ML/MIN Glucose (74-106) mg/dL POC Glucometer 109 H 149 H 185 H (74 to 106) mg/dL Calcium (8.4-10.2) mg/dL Total Bilirubin (0.2-1.3) mg/dL AST (17-59) U/L ALT (0-50) U/L Alkaline Phosphatase (38-126) U/L Serum Total Protein (6.3-8.2) g/dL Albumin (3.5-5.0) g/dL Micro Results-Entire Visit: Microbiology 04/08/25 14:44 Urine Culture - Final Catherized NO GROWTH 04/08/25 10:23 Urine Culture - Final Urine, Void Klebsiella Pneumoniae 04/08/25 11:50 Wound Culture - Final Buttock - Not Known Staphylococcus Aureus Pseudomonas Aeruginosa 04/08/25 09:22 Blood Culture - Preliminary Blood 04/08/25 09:15 Blood Culture - Preliminary Blood Accuchecks Date 04/11/25 Date 04/11/25 Date 04/11/25 Date 04/10/25 Time 16:19 Time 11:45 Time 07:40 Time 21:56 - Procedures and Test Procedures and Tests throughout Hospitalization: Therapy Orders & Screens 04/08/25 13:38 PT Eval & Treat (MD Order) ONCE Reason for Eval:: weakness/wound care decubitus sacral wound Diagnosis: Urosepsis Incentive Spirometry UD Comment: Diagnosis: Urosepsis 04/08/25 17:07 Respiratory Therapy Assessment ONCE Comment: Diagnosis: Urosepsis Discharge Exam General Appearance: no apparent distress, alert Neurologic Exam: alert, oriented x 3, nml cerebellar function, sensation nml, agitation, No motor deficits Eye Exam: PERRL, EOMI, eyes nml inspection Ears, Nose, Throat Exam: normal ENT inspection, pharynx normal, moist mucous membranes Neck Exam: normal inspection, non-tender, supple, full range of motion Respiratory Exam: normal breath sounds, lungs clear, No respiratory distress Cardiovascular Exam: regular rate/rhythm, normal heart sounds Gastrointestinal/Abdomen Exam: soft, No tenderness, No mass Male Genitalia Exam: deferred Rectal Exam: deferred Back Exam: normal inspection, normal range of motion, No CVA tenderness, No vertebral tenderness Extremity Exam: normal inspection, normal range of motion Skin Exam: normal color, warm, dry, other (wound to coxxyx) Wound Assessment: Skin/Wound Assessment Wound/Incision Assessment Start: 04/08/25 14:07 Text: Status: Active Freq: Q6H Protocol: Document 04/11/25 14:00 MICHAEL (Rec: 04/11/25 14:17 JV [id number]) Wound/Incision Assessment Sacrum Wound Assessment Shift Assessment Wound Type Pressure Ulcer Wound Stage Stage IV Dressing Status Dry & Intact Drainage Amount Minimal Drainage Description Serosanguineous General Appearance Draining Comment wound vac in place Wound Photo Photo Taken No Final Diagnosis/Problem List - Final Discharge Diagnosis/Problem (1) Sepsis Current Visit: Yes Status: Acute (2) Decubitus ulcer Current Visit: No Status: Chronic Code(s): L89.90 - PRESSURE ULCER OF UNSPECIFIED SITE, UNSPECIFIED STAGE (3) Hypotension Current Visit: Yes Status: Acute Code(s): I95.9 - HYPOTENSION, UNSPECIFIED (4) Generalized weakness Current Visit: No Status: Acute Code(s): R53.1 - WEAKNESS (5) CAD (coronary artery disease) Current Visit: Yes Status: Chronic Code(s): I25.10 - ATHSCL HEART DISEASE OF [place] CORONARY ARTERY W/O ANG PCTRS (6) Colostomy care Current Visit: Yes Status: Chronic Code(s): Z43.3 - ENCOUNTER FOR ATTENTION TO COLOSTOMY (7) 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 Current Visit: Yes Status: Chronic Code(s): D50.0 - IRON DEFICIENCY ANEMIA SECONDARY TO BLOOD LOSS (CHRONIC) (8) Parkinson disease Current Visit: Yes Status: Chronic Code(s): G20.A1 - PARKINSON'S DIS W/O DYSKINESIA, W/O MENTION OF FLUCTUATIONS (9) Right knee pain Current Visit: Yes Status: Chronic Code(s): M25.561 - PAIN IN RIGHT KNEE (10) Type II diabetes mellitus Current Visit: No Status: Chronic (11) Acute UTI (urinary tract infection) Current Visit: No Status: Resolved Assessment & Plan: (1) Sepsis Current Visit: Yes Status: Acute Assessment & Plan: -Meets Sepsis-3 criteria: suspected infection + organ dysfunction (hypotension requiring fluids). - 2:2 decub ulcer/wound- surgery consult - Weaned off Levophed this AM- then placed back on this afternoon. - Remains in ICU for now - CBC, CMP reviewed - UC, BC x2 negative - Wound culture + Staph and Pseudomonas - Continue IV antibiotics - MRI Pelvis today- pt unable to complete d/t pain and refused. - Tx to higher level of care today- [facility] (2) Decubitus ulcer Current Visit: No Status: Chronic Qualifiers: Pressure injury location: sacral region Pressure injury stage: unstageable Qualified Code(s): L89.150 - Pressure ulcer of sacral region, unstageable Assessment & Plan: -Wound care consult to replace wound vac- pt brought wound vac/supplies with him- PT placed today - MRI today - GS consult - Wound culture + Staph and Pseudomonas - Continue IV antibiotics - BC x2 negative - CBC, CMP reviewed - Pt follows wound care and ID at [facility] - Pro stat 64 Code(s): L89.90 - PRESSURE ULCER OF UNSPECIFIED SITE, UNSPECIFIED STAGE (3) Hypotension Current Visit: Yes Status: Acute Assessment & Plan: - Levophed gtt weaned off - Monitor BP Code(s): I95.9 - HYPOTENSION, UNSPECIFIED (4) Generalized weakness Current Visit: No Status: Acute Assessment & Plan: - Pt agreeable to Rehab at D/C. - Pt eval Code(s): R53.1 - WEAKNESS (5) CAD (coronary artery disease) Current Visit: Yes Status: Chronic Assessment & Plan: -1 stent placed -continue home meds -EKG without ischemic changes; no chest pain Code(s): I25.10 - ATHSCL HEART DISEASE OF [place] CORONARY ARTERY W/O ANG PCTRS (6) Colostomy care Current Visit: Yes Status: Chronic Assessment & Plan: -No acute complications noted -Monitor stoma and skin integrity -Routine ostomy care Code(s): Z43.3 - ENCOUNTER FOR ATTENTION TO COLOSTOMY (7) 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 Current Visit: Yes Status: Chronic Assessment & Plan: - Hgb 7.7- trend Code(s): D50.0 - IRON DEFICIENCY ANEMIA SECONDARY TO BLOOD LOSS (CHRONIC) (8) Parkinson disease Current Visit: Yes Status: Chronic Assessment & Plan: -Continue home meds Code(s): G20.A1 - PARKINSON'S DIS W/O DYSKINESIA, W/O MENTION OF FLUCTUATIONS (9) Right knee pain Current Visit: Yes Status: Chronic Assessment & Plan: - Right knee xray reviewed from 04/08 demonstrating mild to moderate arthritis in all compartments, worst in the medial side. There's a small, nonspecific joint effusion, minor bone spurs below the kneecap, a tiny fabella, and moderate vascular calcifications. No other issues were seen - PT eval for Strengthening the quadriceps and improving joint flexibility and stability - Consider a knee brace or offloading brace and ortho consult if pain persists - Apply ice for swelling or heat for stiffness as needed - Pain control - Lidocaine patch - F/U Op for ortho eval Code(s): M25.561 - PAIN IN RIGHT KNEE (10) Type II diabetes mellitus Current Visit: No Status: Chronic Qualifiers: Diabetes mellitus oysterman insulin use: without alf use Diabetes mellitus complication status: without complication Qualified Code(s): E11.9 - Type 2 diabetes mellitus without complications Assessment & Plan: -ADA diet -A1c 5.77- controlled -SSI, accuchecks AC/HS (11) Acute UTI (urinary tract infection) Current Visit: No Status: Resolved Assessment & Plan: - UC negative - Pt came in with wadsworth to ER - 1st urine sample was from bag in ER and wadsworth was not changed - Wadsworth changed IP and new UC sent- this was negative - Pt does not have urosepsis- ruled out Code(s): N39.0 - URINARY TRACT INFECTION, SITE NOT SPECIFIED - Discharge Discharge Date: 04/11/25 Disposition: DC TO [facility] Condition: Fair Prescriptions: Continue lisinopriL [Zestril] 40 mg PO DAILY Metformin HCl 500 mg [Glucophage 500 MG] 500 mg PO DAILY Ezetimibe 10 mg PO QHS Atorvastatin Calcium [Lipitor] 80 mg PO QHS Furosemide 40 mg [Lasix 40 MG] 80 mg PO BID Potassium Chloride 10 meq PO DAILY Acetaminophen 325 mg [Tylenol 325 mg] 650 mg PO Q6HPRN PRN PRN Reason: FEVER OR PAIN Hydrocodone/Acetaminophen [Hydrocodone-Acetamin 5-325 mg] 1 tab PO Q6HPRN PRN MDD 4 PRN Reason: Pain Metoprolol Tartrate 25 mg [Lopressor 25MG Tab] 25 mg PO BID Folic Acid 1 mg [Folate 1 mg] 1 mg PO DAILY Ferrous Sulfate 325 mg PO DAILY Carbidopa/Levodopa [Carbidopa-Levodopa 25-100 Tab] 1 tab PO TID Follow up with: LENA DUGGAN MD [Primary Care Provider, [facility]]
[2025-04-11 19:22] VITALS: O2SAT 97
[2025-04-11 20:08] VITALS: PULSE 73; RESP 19; TEMP 98.7
[2025-04-11 21:01] VITALS: BP 108/55
[2025-04-12] MEDS ORDERED: TROUGH DRUG LEVELS IJ ONE (09:30)
--- NOTE | 2025-04-12 11:31 | CONS ---
REASON FOR CONSULTATION: Sacral decubitus HISTORY: Patient is familiar to our group. Dr. Reese did a diverting colostomy some time ago and it is working very well. The ostomy is viable. It is protruded like it supposed to be. There is no prolapse. The bag in place and it is working well. No issues there. Patient still has a massive decubitus. The packing was pulled out and just "a little juicy" but it is basically clean. It is substantially pink, some areas of whiteness. There are no areas of eschar. There is nothing that needs debrided today, and there is really not any necrotic tissue present here, but there is a mix between nice granulation tissue and just sort of white tissue that needs some continued time and dressing changes. I think a wound VAC would be excellent. I think this would certainly hasten the development of granulation tissue and help clean this up. I do not think it would trap germs or cause an infection at this point. I am aware that he is in for sepsis, and he has had previous cultures of pseudomonas from this wound, and he is currently on some Levophed. He is also on supportive care only. I am not aware anything any better at [facility] for this individual at this time. Nobody is going to turn a flap on this wound. The wound is not clean enough for that. The wound is clean enough, but it certainly does not need debridement. Nobody would re-debride this at this time. I think the wound VAC and continued supportive measures are in order and can be given at this hospital.
== END 2025-04-11 20:50 | disposition home or self-care (01) | DRG 871 ==
LOC: ED 08:51 → ICU 12:37
PROVIDERS: ADMIT Internal Medicine; ATTEND Internal Medicine
DX: A41.9 Sepsis, unspecified organism (principal); L89.154 Pressure ulcer of sacral region, stage 4; N39.0 Urinary tract infection, site not specified; I95.9 Hypotension, unspecified; R53.1 Weakness; I25.10 Atherosclerotic heart disease of native coronary artery without angina pectoris; Z43.3 Encounter for attention to colostomy; D50.0 Iron deficiency anemia secondary to blood loss (chronic); G20.A1 Parkinson's disease without dyskinesia, without mention of fluctuations; M25.561 Pain in right knee; E11.9 Type 2 diabetes mellitus without complications; I10 Essential (primary) hypertension; E78.5 Hyperlipidemia, unspecified; R33.9 Retention of urine, unspecified; Z79.899 Other long term (current) drug therapy
CPT/HCPCS: 36415; 71045; 73562; 80053; 81001; 82947; 83036; 83605; 83735; 83880; 84145; 84484; 85025; 86850; 86900; 86901; 87040; 87070; 87077; 87086; 87186; 93005; 93041; 97161; 97606; 99291; G0328; Q3014